=== PATIENT | male | born 1960 | race Caucasian/White ===

== ENCOUNTER 2024-06-19 18:01 | Observation (INO) | payer MEDICARE, MEDICAID, SELFPAY ==
[2024-06-19] VITALS (23 sets, daily range): BP systolic 113–140; BP diastolic 48–90; PULSE 66–80; TEMP 36.4; O2SAT 95–99; BMI 38.7; BMI 36.2
--- NOTE | 2024-06-19 18:06 | ECG_ITS ---
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
--- NOTE | 2024-06-19 18:06 | CT_ITS ---
The [address] [address] Patient Name: UVALDO MICHEL MRN: [id number] date: 1960 Sex: M Assigned Patient Location: ER Current Patient Location: ED.MAIN Accession/Order Number: [id number] Exam Date: 06/19/2024 18:30 Report Date: 06/19/2024 20:19 At the request of: MARINO BECERRA Procedure: CT head/brain wo con EXAM: CT head/brain wo con HISTORY: seizure, no known history COMPARISON: None. TECHNIQUE: CT head noncontrast FINDINGS: No mass, edema, or hemorrhage seen. Ventricles normal size midline without mass effect or shift. No extra-axial collection. No fracture or suspicious bone lesion. Visualized mastoid, middle ear cavities and sinuses clear. CT/CT head/brain wo con IMPRESSION: Negative head CT without evidence of acute abnormality. Electronically authenticated by: ENDY PAREKH Date: 06/19/2024 20:19
--- NOTE | 2024-06-19 18:06 | XR_ITS ---
The [address] [address] Patient Name: UVALDO MICHEL MRN: [id number] date: 1960 Sex: M Assigned Patient Location: ER Current Patient Location: ED.MAIN Accession/Order Number: [id number] Exam Date: 06/19/2024 18:30 Report Date: 06/19/2024 20:33 At the request of: MARINO BECERRA Procedure: XR chest 1V EXAM: XR chest 1V HISTORY: seizure COMPARISON: None. TECHNIQUE: AP upright chest x-ray. FINDINGS: Lungs clear without infiltrate or edema or suspicious focal lung lesion. Heart size prominent accentuated by magnification. Mediastinal contour otherwise unremarkable. No pleural effusion or pneumothorax XR/XR chest 1V IMPRESSION: No acute findings, clear lungs. Electronically authenticated by: ENDY PAREKH Date: 06/19/2024 20:33
[2024-06-19 18:35] LABS: Basophils Percent Auto 0.4 % (0.2-2.0); Eosinophils Absolute Auto 0.2 10^3/uL (0.0-0.7); Eosinophils Percent Auto 3.7 % (0.9-7.0); Hematocrit 37.5 % (42.0-54.0); Hemoglobin 12.7 g/dL (14.0-18.0); Immature Granulocytes Abs Auto 0.01 10^3/uL (0.00-0.03); Immature Granulocytes Pct Auto 0.2 % (0.0-0.5); Lymphocytes Absolute Auto 1.2 10^3/uL (1.2-3.8); Mean Corpuscular HGB Conc 33.9 g/dL (29.9-35.2); Mean Corpuscular Hemoglobin 27.9 pg (25.9-34.0); Mean Corpuscular Volume 82.2 fL (80.0-94.0); Mean Platelet Volume 10.4 fL (9.5-13.5); Monocytes Absolute Auto 0.4 10^3/uL (0.3-0.8); Neutrophils Absolute Auto 3.1 10^3/uL (1.4-6.5); Neutrophils Percent Auto 62.7 % (43.0-75.0); Platelet Count 160 10^3/uL (150-450); Red Blood Count 4.56 10^6/uL (4.70-6.10); Red Cell Distribution Width 13.4 % (11.0-15.0); White Blood Count 4.9 10^3/uL (4.0-11.0)
[2024-06-19] MEDS: 0.9 % SODIUM CHLORIDE 1,000 ML 999 ML IV (18:36)
--- NOTE | 2024-06-19 18:47 | ED_ITS ---
HPI HPI - General Adult General Chief complaint: Seizure Stated complaint: Seizure Time Seen by Provider: 06/19/24 18:05 Mode of arrival: ambulance History of Present Illness HPI narrative: 63-year-old male was brought to the emergency room by squad with a episode of seizures per snf. Seizures were witnessed. [facility] states he had 4 seizures . Patient somewhat postictal upon arrival but 1520 minutes after being here he is alert and oriented. He does have a history of dementia schizophrenia and depression. He is at the snf for after being discharged from [address] [place] [address]. Patient is calm and cooperative at this time. No known injuries or fall are noted patient is complaining of left knee pain snf states he had an x-ray yesterday they do not have those results. No obvious swelling or deformity lower extremity is noted. Patient's blood sugar initially was 53 at snf he was given 2 doses of glucagon IM. Blood sugar upon arrival here to the emergency room was. Patient's vital signs are stable. He is resting comfortably. Related Data Home Medications ?Medication ?Instructions ?Recorded ?Confirmed acetaminophen 500 mg capsule 1,000 mg PO Q6H PRN fever or pain 06/19/24 06/19/24 atorvastatin 80 mg tablet 80 mg PO DAILY 06/19/24 06/19/24 buspirone 5 mg tablet 5 mg PO DAILY 06/19/24 06/19/24 citalopram 40 mg tablet 40 mg PO DAILY 06/19/24 06/19/24 clopidogrel 75 mg tablet 75 mg PO DAILY 06/19/24 06/19/24 donepezil 10 mg tablet 10 mg PO DAILY 06/19/24 06/19/24 dulaglutide 3 mg/0.5 mL 3 mg subcut .WEEKLY 06/19/24 06/19/24 [facility] famotidine 20 mg tablet 20 mg PO DAILY 06/19/24 06/19/24 fluticasone propionate 50 2 spray intranasal DAILY 06/19/24 06/19/24 mcg/actuation nasal spray,suspension furosemide 20 mg tablet 20 mg PO DAILY 06/19/24 06/19/24 gabapentin 600 mg tablet 600 mg PO Q8H 06/19/24 06/19/24 insulin aspart U-100 100 unit/mL subcut 06/19/24 (3 mL) subcutaneous pen (Novolog FlexPen U-100 Insulin aspart) insulin glargine 100 unit/mL (3 unit subcut 06/19/24 mL) subcutaneous pen (Lantus Solostar U-100 Insulin) metformin 1,000 mg tablet 1,000 mg PO BID 06/19/24 06/19/24 metoprolol tartrate 50 mg tablet 50 mg PO Q12H 06/19/24 06/19/24 pantoprazole 40 mg tablet,delayed 40 mg PO DAILY 06/19/24 06/19/24 release primidone 250 mg tablet 250 mg PO DAILY 06/19/24 06/19/24 quetiapine 25 mg tablet (Seroquel) 75 mg PO DAILY 06/19/24 06/19/24 ropinirole 0.5 mg tablet 0.5 mg PO DAILY 06/19/24 06/19/24 Allergies Allergy/AdvReac Type Severity Reaction Status Date / Time codeine Allergy Severe Anaphylaxis Verified 06/19/24 18:09 Latex, Natural Rubber Allergy Severe Rash Verified 06/19/24 18:09 Opioid HPI Opioid Management Most Recent Opioid Data: No Data to Display Review of Systems ROS Narrative All Systems are negative except as noted/marked.All systems reviewed and otherwise negative Exam Narrative Exam Narrative: All Systems are negative except as noted/marked.All systems reviewed and otherwise negative Nurses note and vital signs reviewed and patient is not hypoxic. General: The patient appears well and in no apparent distress. Patient is resting comfortably on cart. Skin: Warm, dry, no pallor noted. There is no rash noted. Head: Normocephalic, atraumatic Eye: Normal conjunctiva, no drainage, EOMI. PERRL Ears, Nose, Mouth, and Throat: oral mucosa is moist. Nares patent. Mouth without vesicles. Ear canals patent. Tm's without Erythema Cardiovascular: Regular Rate and Rhythm Respiratory: Patient is in no distress, no accessory muscle use, lungs are clear to auscultation, no wheezing, rales or rhonchi Back: non-tender, no CVA tenderness bilaterally to percussion. GI: Normal bowel sounds, no tenderness to palpation, no masses appreciated. No rebound, guarding, or rigidity noted. Musculoskeletal: The patient has no evidence of calf tenderness, no pitting edema, symmetrical pulses noted bilaterally Neurological:postictal upon arrival, A&O3 x, normal [id number] min post arrival Psychiatric: Cooperative Constitutional Vital Signs, click to edit/add: Last Vital Signs Temp 97.6 F 06/19/24 18:03 Pulse 72 06/19/24 19:10 Resp 18 06/19/24 18:03 BP 140/88 06/19/24 18:03 Pulse Ox 97 06/19/24 19:10 O2 Del Method Room Air 06/19/24 18:03 Course Vital Signs Vital signs: Vital Signs Temperature 97.6 F 06/19/24 18:03 Pulse Rate 71 06/19/24 18:03 Respiratory Rate 18 06/19/24 18:03 Blood Pressure 140/88 06/19/24 18:03 Pulse Oximetry 99 06/19/24 18:03 Oxygen Delivery Method Room Air 06/19/24 18:03 Temperature 97.6 F 06/19/24 18:03 Pulse Rate 72 06/19/24 19:10 Respiratory Rate 18 06/19/24 18:03 Blood Pressure 140/88 06/19/24 18:03 Pulse Oximetry 97 06/19/24 19:10 Oxygen Delivery Method Room Air 06/19/24 18:03 Medical Decision Making Differential Diagnosis Differential Diagnosis: hypoglemia, seizure, seizure like activity Medical Records Medical records reviewed: Yes I reviewed the patient's medical records Medical records narrative: 63-year-old male was brought to the emergency room by squad with a episode of seizures per snf. Seizures were witnessed. [facility] states he had 4 seizures . Patient somewhat postictal upon arrival but 1520 minutes after being here he is alert and oriented. He does have a history of dementia schizophrenia and depression. He is at the snf for after being discharged from [address] [place] [address]. Patient is calm and cooperative at this time. No known injuries or fall are noted patient is complaining of left knee pain snf states he had an x-ray yesterday they do not have those results. No obvious swelling or deformity lower extremity is noted. Patient's blood sugar initially was 53 at snf he was given 2 doses of glucagon IM. Blood sugar upon arrival here to the emergency room was. Patient's vital signs are stable. He is resting comfortably. Sorum here patient had a shaking episode that lasted approximately 10 seconds did not appear to be a seizure. He did not have any loss of bowel or bladder function. Head CT was performed and read negative by radiology. Delay of care was performed and waiting for CT exam. Blood work was reviewed patient had a low magnesium as well as a low calcium. Magnesium was 1.4 and calcium of 7.3. Patient was medicated here with 2 g of magnesium IV. He has been calm and comfortable here in the emergency room. Blood work including this was on the gillian joel. spoke with hospitalist regarding patient's care. patient will be admitted for observation seizure-like activity, hypoglycemia, hypomagnesia and hypocalcemia. Lab Data Lab results reviewed: Yes I reviewed the patient's lab results Labs: Lab Results 06/19/24 06/19/24 06/19/24 Range/Units 18:10 18:38 19:50 WBC 4.9 (4.0-11.0) 10^3/uL RBC 4.56 L (4.70-6.10) 10^6/uL Hgb 12.7 L (14.0-18.0) g/dL Hct 37.5 L (42.0-54.0) % MCV 82.2 (80.0-94.0) fL MCH 27.9 (25.9-34.0) pg MCHC 33.9 (29.9-35.2) g/dL RDW 13.4 (11.0-15.0) % Plt Count 160 (150-450) 10^3/uL MPV 10.4 (9.5-13.5) fL Neut % (Auto) 62.7 (43.0-75.0) % Lymph % (Auto) 24.0 (20.5-60.0) % [place] % (Auto) 9.0 (1.7-12.0) % Eos % (Auto) 3.7 (0.9-7.0) % Baso % (Auto) 0.4 (0.2-2.0) % Neut # (Auto) 3.1 (1.4-6.5) 10^3/uL Lymph # (Auto) 1.2 (1.2-3.8) 10^3/uL [place] # (Auto) 0.4 (0.3-0.8) 10^3/uL Eos # (Auto) 0.2 (0.0-0.7) 10^3/uL Baso # (Auto) 0.0 (0.0-0.1) 10^3/uL Abs Immat Gran (auto) 0.01 (0.00-0.03) 10^3/uL Imm/Tot Granulo (auto) 0.2 (0.0-0.5) % Sodium 142 (136-145) mmol/L Potassium 3.7 (3.5-5.1) mmol/L Chloride 105 (98-107) mmol/L Carbon Dioxide 28.9 (21.0-32.0) mmol/L Anion Gap 11.8 BUN 16.0 (7.0-18.0) mg/dL Creatinine 0.89 (0.70-1.30) mg/dL Est GFR ( Amer) >60 (>=60 mL/min/1.73m^2) Est GFR (Non-Af Amer) >60 (>=60 mL/min/1.73m^2) BUN/Creatinine Ratio 18.0 Glucose 168 H (74-106) mg/dL Calcium 7.3 L (8.5-10.1) mg/dL Magnesium 1.4 L (1.8-2.4) mg/dL Total Bilirubin 0.3 (0.2-1.0) mg/dL AST 34 (15-37) U/L ALT 70 H (16-63) U/L Alkaline Phosphatase 121 H (46-116) U/L Total Protein 5.7 L (6.4-8.2) g/dL Albumin 2.7 L (3.4-5.0) g/dL Globulin 3.0 g/dL Albumin/Globulin Ratio 0.9 Urine Color Lt. yellow (YELLOW) Urine Clarity Clear (CLEAR) Urine pH 6.0 (5.0-9.0) Ur Specific [place] <=1.005 A (1.005-1.025) Urine Protein Negative (NEG/TRACE) mg/dL Urine Glucose (UA) Negative (NEGATIVE) mg/dL Urine Ketones Negative (NEGATIVE) mg/dL Urine Occult Blood Negative (NEGATIVE) Urine Nitrite Negative (NEGATIVE) Urine Bilirubin Negative (NEGATIVE) Urine Urobilinogen 0.2 (0.2-1.0) EU/dL Ur Leukocyte Esterase Negative (NEGATIVE) Urine RBC None seen (0-2) #/HPF Urine WBC None seen (NONE SEEN) #/HPF Ur Squamous Epith Cells Rare (NONE/RARE) #/LPF Urine Crystals None seen (None Seen) #/HPF Urine Bacteria None seen (NONE SEEN) #/HPF Urine Casts None seen (NONE SEEN) #/LPF Urine Mucus None seen (NONE SEEN) Streptococcus Screen Negative Imaging Data CT scan - head: Radiologist's impression: ITS Impressions Chest X-Ray 06/19/24 18:06 IMPRESSION: No acute findings, clear lungs. Electronically authenticated by: ENDY PAREKH Date: 06/19/2024 20:[address] 06/19/24 18:06 IMPRESSION: Negative head CT without evidence of acute abnormality. Electronically authenticated by: ENDY PAREKH Date: 06/19/2024 20:19 ECG Data Interpretation: 1806 normal sinus rhythm with a rate of 72 bpm, CO interval 164 ms QRS duration [address] elevation depression. Discharge Plan Discharge Chief Complaint: Seizure Clinical Impression: Seizure-like activity, Hypomagnesemia, Hypocalcemia, Hypoglycemia Patient Disposition: Admitted as Observation Time of Disposition Decision: 20:31 Condition: Good
[2024-06-19 18:48] LABS: Alanine Aminotransferase 70 U/L (16-63); Albumin Globulin Ratio 0.9; Albumin Level 2.7 g/dL (3.4-5.0); Alkaline Phosphatase 121 U/L (46-116); Anion Gap 11.8; Aspartate Amino Transferase 34 U/L (15-37); Bilirubin Total 0.3 mg/dL (0.2-1.0); Calcium 7.3 mg/dL (8.5-10.1); Carbon Dioxide 28.9 mmol/L (21.0-32.0); Chloride 105 mmol/L (98-107); Estimated GFR (African America >60 (>=60 mL/min/1.73m^2); Estimated GFR (Non-African Ame >60 (>=60 mL/min/1.73m^2); Glucose 168 mg/dL (74-106); Magnesium 1.4 mg/dL (1.8-2.4); Potassium 3.7 mmol/L (3.5-5.1); Sodium 142 mmol/L (136-145); Total Protein 5.7 g/dL (6.4-8.2)
--- NOTE | 2024-06-19 18:50 | PC.NURSE ---
RN spoke to Trent at [facility]. pt has chronic left knee pain. Trent states pt had xray done yesterday at [facility] but do not have results back yet.
[2024-06-19] MEDS: MAGNESIUM SULFATE IN WATER 2 GM/50 ML PREMIX IV (19:08)
[2024-06-19 19:14] LABS: Internal Control Within Normal Limits; Strep A Antigen Screen Negative
[2024-06-19 19:57] LABS: Bilirubin Urine NEGATIVE (NEGATIVE); Blood Urine NEGATIVE (NEGATIVE); Clarity Urine CLEAR (CLEAR); Color Urine LT. YELLOW (YELLOW); Glucose Urine UA NEGATIVE (NEGATIVE); Ketones Urine NEGATIVE (NEGATIVE); Leukocyte Esterase Urine NEGATIVE (NEGATIVE); Nitrite Urine NEGATIVE (NEGATIVE); Protein Urine NEGATIVE (NEG/TRACE); Specific Gravity Urine <=1.005 (1.005-1.025); Urobilinogen Urine 0.2 EU/dL (0.2-1.0)
--- NOTE | 2024-06-19 20:06 | PC.NURSE ---
snf called and informed patient will be admitted.
[2024-06-19 20:15] LABS: Bacteria Urine NONE SEEN #/HPF (NONE SEEN); Cast Seen? NONE SEEN #/LPF (NONE SEEN); Crystals Seen? None Seen #/HPF (None Seen); Mucus Urine NONE SEEN (NONE SEEN); RBC Urine NONE SEEN #/HPF (0-2); Squamous Epithelial Cell Urine RARE #/LPF (NONE/RARE); WBC Urine NONE SEEN #/HPF (NONE SEEN)
[2024-06-19] MEDS: GABAPENTIN 300 MG CAPSULE 600 MG PO (23:12)
[2024-06-19] MEDS: METOPROLOL TARTRATE 50 MG TABLET PO (23:13)
[2024-06-19] MEDS: ACETAMINOPHEN 325 MG TABLET 650 MG PO (23:14)
[2024-06-20] VITALS (9 sets, daily range): BP systolic 109–141; BP diastolic 70–88; PULSE 68–100; TEMP 36.4–36.8; O2SAT 94–96
[2024-06-20 06:01] LABS: Basophils Percent Auto 0.3 % (0.2-2.0); Eosinophils Absolute Auto 0.2 10^3/uL (0.0-0.7); Eosinophils Percent Auto 3.1 % (0.9-7.0); Hematocrit 40.8 % (42.0-54.0); Hemoglobin 13.8 g/dL (14.0-18.0); Immature Granulocytes Abs Auto 0.01 10^3/uL (0.00-0.03); Immature Granulocytes Pct Auto 0.1 % (0.0-0.5); Lymphocytes Absolute Auto 1.5 10^3/uL (1.2-3.8); Lymphocytes Percent Auto 19.3 % (20.5-60.0); Mean Corpuscular HGB Conc 33.8 g/dL (29.9-35.2); Mean Corpuscular Hemoglobin 27.7 pg (25.9-34.0); Mean Corpuscular Volume 81.9 fL (80.0-94.0); Mean Platelet Volume 10.3 fL (9.5-13.5); Monocytes Absolute Auto 0.7 10^3/uL (0.3-0.8); Monocytes Percent Auto 8.9 % (1.7-12.0); Neutrophils Absolute Auto 5.1 10^3/uL (1.4-6.5); Neutrophils Percent Auto 68.3 % (43.0-75.0); Platelet Count 189 10^3/uL (150-450); Red Blood Count 4.98 10^6/uL (4.70-6.10); Red Cell Distribution Width 13.7 % (11.0-15.0); White Blood Count 7.5 10^3/uL (4.0-11.0)
[2024-06-20 06:14] LABS: Anion Gap 10.3; BUN Creatinine Ratio 16.3; Calcium 7.9 mg/dL (8.5-10.1); Chloride 105 mmol/L (98-107); Estimated GFR (African America >60 (>=60 mL/min/1.73m^2); Estimated GFR (Non-African Ame >60 (>=60 mL/min/1.73m^2); Glucose 78 mg/dL (74-106); Magnesium 1.9 mg/dL (1.8-2.4); Potassium 4.3 mmol/L (3.5-5.1); Sodium 142 mmol/L (136-145)
[2024-06-20] MEDS: GABAPENTIN 300 MG CAPSULE 600 MG PO (06:35)
[2024-06-20 08:01] LABS: Glucometer 87 mg/dL (74-106)
[2024-06-20] MEDS: FAMOTIDINE 20 MG TABLET PO (09:36)
[2024-06-20] MEDS: QUETIAPINE FUMARATE 25 MG TABLET 75 MG PO (09:36)
[2024-06-20] MEDS: ROPINIROLE HCL 0.25 MG TABLET 0.5 MG PO (09:36)
[2024-06-20] MEDS: ENOXAPARIN SODIUM 40 MG/0.4 ML SYRINGE SUBQ (09:36)
[2024-06-20] MEDS: CITALOPRAM HYDROBROMIDE 20 MG TABLET 40 MG PO (09:36)
[2024-06-20] MEDS: CLOPIDOGREL BISULFATE 75 MG TABLET PO (09:36)
[2024-06-20] MEDS: OMEPRAZOLE 40 MG CAPSULE.DR PO (09:36)
[2024-06-20] MEDS: DONEPEZIL HCL 10 MG TABLET PO (09:36)
[2024-06-20] MEDS: BUSPIRONE HCL 10 MG TABLET 5 MG PO (09:36)
[2024-06-20] MEDS: FLUTICASONE PROPIONATE 50 MCG NASAL SPRAY 2 SPRAY NS (09:37)
[2024-06-20] MEDS: FUROSEMIDE 20 MG TABLET PO (09:37)
[2024-06-20] MEDS: ATORVASTATIN CALCIUM 40 MG TABLET 80 MG PO (09:37)
[2024-06-20] MEDS: PRIMIDONE 250 MG TABLET PO (09:37)
[2024-06-20] MEDS: METOPROLOL TARTRATE 50 MG TABLET PO (09:37)
--- NOTE | 2024-06-20 09:38 | P.HP_ITS ---
HPI H&P: HPI History of Present Illness Chief complaint: Seizure, Hypomagnesemia, Hypocalcemia,Hypoglycemia Narrative: Patient is a 63 y.o white male with past medical history of dementia, schizopherenia, depression who presented last night to the ER from a care home ([facility]) with seizure like activity. It seems patient had a hypoglycemic episode with sugars <50. He responded well with glucagon. He appears well this morning. No current complaints. No history of seizures, no recent changes to diet or other medications. He is alert and oriented x 3 this morning. No tremors, no complaints. ER findings: CT head negative, CXR negative, Mag 1.4, Glucose 53; patient was given 2grams of IV magnesium and admitted to the hospitalist for further plan of care. no overnight events reported. Opioid HPI Opioid Management Most Recent Pain and Opioid Data: Last Pain Scale 2 06/19/24 23:14 06/19/24 Last Pain Assessment 06/20/24 13:00 Last MAR Pain Assessment 06/20/24 00:10 Last ORT Total Score 3 06/19/24 21:33 06/19/24 Last ORT Risk Category Low Risk 06/19/24 21:33 06/19/24 Review of Systems ROS Narrative ROS: a complete review of systems were reviewed with patient and are positive as below or listed in History of Chief Complaint. General: no fever, chills, night sweats Head: no headache, trauma, visual changes, nausea or vomiting Skin: no reported rashes, itching or sores Eyes: no blurriness of vision Ears: no reported hearing loss, vertigo, earache, or tinnitus Throat: no sore throat, hoarseness, swelling of neck, or tongue pain Heart: no chest pain Lungs: no shortness of breath or cough GI: no diarrhea or vomiting/nausea Urinary: no urinary urgency, frequency or pain Neuro: no numbness or tingling HEM: no bleeding issues or bruising ENDO: no thyroid problems Psych: anxiety and depression [facility] Medical History (Updated 06/20/24 @ 09:47 by Kristal Gaviria DO) Schizo affective schizophrenia ?F25.9 - Schizoaffective disorder, unspecified (ICD-10) Generalized muscle weakness ?M62.81 - Muscle weakness (generalized) (ICD-10) Myocardial infarct ?I21.9 - Acute myocardial infarction, unspecified (ICD-10) Restless leg syndrome ?G25.81 - Restless legs syndrome (ICD-10) Anxiety disorder ?F41.9 - Anxiety disorder, unspecified (ICD-10) Nicotine dependence ?F17.200 - Nicotine dependence, unspecified, uncomplicated (ICD-10) Hyperlipidemia ?E78.5 - Hyperlipidemia, unspecified (ICD-10) COVID-19 ?U07.1 - COVID-19 (ICD-10) Suicidal ideations ?R45.851 - Suicidal ideations (ICD-10) Diabetes ?E11.9 - Type 2 diabetes mellitus without complications (ICD-10) Dementia ?F03.90 - Unspecified dementia, unspecified severity, without behavioral disturbance, psychotic disturbance, mood disturbance, and anxiety (ICD-10) Depressive disorder ?F32.A - Depression, unspecified (ICD-10) Social History Smoking status: Former smoker Highest level of school completed/degree received: high school graduate Meds Home Medications and Allergies Home Medications ?Medication ?Instructions ?Recorded ?Confirmed ?Type acetaminophen 500 mg capsule 1,000 mg PO Q6H PRN fever or pain 06/19/24 06/19/24 History atorvastatin 80 mg tablet 80 mg PO DAILY 06/19/24 06/19/24 History buspirone 5 mg tablet 5 mg PO DAILY 06/19/24 06/19/24 History citalopram 40 mg tablet 40 mg PO DAILY 06/19/24 06/19/24 History clopidogrel 75 mg tablet 75 mg PO DAILY 06/19/24 06/19/24 History donepezil 10 mg tablet 10 mg PO DAILY 06/19/24 06/19/24 History dulaglutide 3 mg/0.5 mL 3 mg subcut .WEEKLY 06/19/24 06/19/24 History subcutaneous pen injector ([facility]) famotidine 20 mg tablet 20 mg PO DAILY 06/19/24 06/19/24 History fluticasone propionate 50 2 spray intranasal DAILY 06/19/24 06/19/24 History mcg/actuation nasal spray,suspension furosemide 20 mg tablet 20 mg PO DAILY 06/19/24 06/19/24 History gabapentin 600 mg tablet 1,200 mg PO Q8H 06/19/24 06/19/24 History insulin aspart U-100 100 unit/mL subcut 06/19/24 History (3 mL) subcutaneous pen (Novolog FlexPen U-100 Insulin aspart) metformin 1,000 mg tablet 1,000 mg PO BID 06/19/24 06/19/24 History metoprolol tartrate 50 mg tablet 50 mg PO Q12H 06/19/24 06/19/24 History pantoprazole 40 mg tablet,delayed 40 mg PO DAILY 06/19/24 06/19/24 History release primidone 250 mg tablet 250 mg PO DAILY 06/19/24 06/19/24 History quetiapine 25 mg tablet (Seroquel) 75 mg PO DAILY 06/19/24 06/19/24 History ropinirole 0.5 mg tablet 0.5 mg PO DAILY 06/19/24 06/19/24 History insulin glargine 100 unit/mL (3 15 unit (0.15 mL) subcut BID #0 mL 06/20/24 06/19/24 Rx mL) subcutaneous pen (Lantus Solostar U-100 Insulin) Allergies Allergy/AdvReac Type Severity Reaction Status Date / Time codeine Allergy Severe Anaphylaxis Verified 06/19/24 18:09 Latex, Natural Rubber Allergy Severe Rash Verified 06/19/24 18:09 Exam Narrative Exam Narrative: General: Patient is alert, and oriented to person, place and time with normal affect, proper hygiene Skin: no visible rashes, or ulcers Head: atraumatic, acephalic Eyes: PERRLA, no nystagmus present, conjunctiva clear, no scleral icterus Ears: normal Tympanic Membrane, normal gross auditory acuity Nose: symmetric, no discharge, no maxillary or frontal sinus tenderness Heart: Normal rate and rhythm, no murmurs/rubs/gallops Lungs: no audible wheezes, crackles and normal breath sounds all lung alex Abdomen: Normal audible bowel sounds, no distension, No palpable masses, no organomegaly, no rebound/guarding/ or rigidity Musculoskeletal: no swelling bilateral lower extremities Neuro: CN II-X grossly intact Constitutional Vital Signs, click to edit/add: Last Vital Signs Temp 98.3 F 06/20/24 07:51 Pulse 77 06/20/24 08:00 Resp 18 06/20/24 07:51 BP 141/88 06/20/24 07:51 Pulse Ox 94 L 06/20/24 07:51 O2 Del Method Room Air 06/20/24 07:51 Results Labs Labs: Short CBC 06/19/24 06/20/24 Range/Units 18:10 05:35 WBC 4.9 7.5 (4.0-11.0) 10^3/uL Hgb 12.7 L 13.8 L (14.0-18.0) g/dL Hct 37.5 L 40.8 L (42.0-54.0) % Plt Count 160 189 (150-450) 10^3/uL BMP 06/19/24 06/20/24 18:10 05:35 Sodium 142 142 Potassium 3.7 4.3 Chloride 105 105 Carbon Dioxide 28.9 31.0 BUN 16.0 15.0 Creatinine 0.89 0.92 Glucose 168 H 78 Calcium 7.3 L 7.9 L Liver Function 06/19/24 Range/Units 18:10 Total Bilirubin 0.3 (0.2-1.0) mg/dL AST 34 (15-37) U/L ALT 70 H (16-63) U/L Alkaline Phosphatase 121 H (46-116) U/L Albumin 2.7 L (3.4-5.0) g/dL Urine 06/19/24 Range/Units 19:50 Urine Color Lt. yellow (YELLOW) Urine Clarity Clear (CLEAR) Urine pH 6.0 (5.0-9.0) Ur Specific [place] <=1.005 A (1.005-1.025) Urine Protein Negative (NEG/TRACE) mg/dL Urine Glucose (UA) Negative (NEGATIVE) mg/dL Assessment and Plan Assessment and Plan (1) Hypoglycemia: Assessment and Plan: patient on lantus 35 units BID and SSI along with lloyd. Would recommend decreasing lantus dosage as outpatient to 15 units BID and see if this improves his hypoglycemia. He will need close outpatient follow up to see if he needs the Lantus at all. (2) Hypocalcemia: Assessment and Plan: monitor (3) Hypomagnesemia: Assessment and Plan: normal range after given 2grams IV mag (4) Hyperlipidemia: Assessment and Plan: continue atorvastatin Qualifiers: Hyperlipidemia type: mixed hyperlipidemia Qualified Code(s): E78.2 - Mixed hyperlipidemia (5) Diabetes: Assessment and Plan: see #1 above Qualifiers: Diabetes mellitus complication detail: without coma Diabetes mellitus complication status: with hypoglycemia Diabetes mellitus parts counterman insulin use: with [facility] use Diabetes mellitus type: type 2 Qualified Code(s): E11.649 - Type 2 diabetes mellitus with hypoglycemia without coma; Z79.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 (6) Dementia: Assessment and Plan: currently resides in a LTCF Qualifiers: Dementia behavioral or psychological symptom: unspecified whether behavioral, psychotic, or mood disturbance or anxiety Dementia severity: unspecified severity Dementia type: unspecified type Qualified Code(s): F03.90 - Unspecified dementia, unspecified severity, without behavioral disturbance, psychotic disturbance, mood disturbance, and anxiety (7) Depressive disorder: Assessment and Plan: continue home meds (8) Schizo affective schizophrenia: Assessment and Plan: continue home meds Plan Patient is a full code patient is in observation, hypoglycemic episode that contributed to seizure like episode is most likely. Will adjust outpatient insulin medications and hopeful discharge back to the care home today.
[2024-06-20] MEDS: INSULIN ASPART 300 UNIT/3 ML PEN SUBQ (11:42)
[2024-06-20 11:43] LABS: Glucometer 162 mg/dL (74-106)
--- NOTE | 2024-06-20 13:52 | PM.DS1 ---
DS: Providers Provider Date of admission: 06/19/24 21:22 Primary care physician: EDWIN LAYNE Attending physician on admission: Kristal Gaviria Discharging clinician: Kristal Gaviria DS: Diagnosis Discharge Diagnosis (1) Hypoglycemia: (2) Hypocalcemia: (3) Hypomagnesemia: (4) Hyperlipidemia: Qualifiers: Hyperlipidemia type: mixed hyperlipidemia Qualified Code(s): E78.2 - Mixed hyperlipidemia (5) Diabetes: Qualifiers: Diabetes mellitus type: type 2 Diabetes mellitus group home insulin use: with group home use Diabetes mellitus complication status: with hypoglycemia Diabetes mellitus complication detail: without coma Qualified Code(s): E11.649 - Type 2 diabetes mellitus with hypoglycemia without coma; Z79.4 - long term acute care registered nurse (current) use of insulin (6) Dementia: Qualifiers: Dementia type: unspecified type Dementia severity: unspecified severity Dementia behavioral or psychological symptom: unspecified whether behavioral, psychotic, or mood disturbance or anxiety Qualified Code(s): F03.90 - Unspecified dementia, unspecified severity, without behavioral disturbance, psychotic disturbance, mood disturbance, and anxiety (7) Depressive disorder: (8) Schizo affective schizophrenia: DS: Summary Hospital Course Hospital Course: please see H&P dated 06/20/24 Status at Discharge Functional status at discharge: uses cane/walker Overall status at discharge: patient is back to baseline Time Spent with Patient Time attestation: Total time spent providing and/or coordinating discharge services: Time spent: greater than 30 minutes Exam Narrative Exam Narrative: please see H&P dated 06/20/24 Constitutional Vital Signs, click to edit/add: Last Vital Signs Temp 97.7 F 06/20/24 12:00 Pulse 100 H 06/20/24 12:00 Resp 18 06/20/24 12:00 BP 129/84 06/20/24 12:00 Pulse Ox 96 06/20/24 12:05 O2 Del Method Room Air 06/20/24 12:05 DS: Data Data Completed and Pending Labs on day of discharge: Labs from last 24 hours 06/20/24 06/20/24 06/20/24 11:30 07:50 05:35 WBC 7.5 RBC 4.98 Hgb 13.8 L Hct 40.8 L MCV 81.9 MCH 27.7 MCHC 33.8 RDW 13.7 Plt Count 189 MPV 10.3 Neut % (Auto) 68.3 Lymph % (Auto) 19.3 L [place] % (Auto) 8.9 Eos % (Auto) 3.1 Baso % (Auto) 0.3 Neut # (Auto) 5.1 Lymph # (Auto) 1.5 [place] # (Auto) 0.7 Eos # (Auto) 0.2 Baso # (Auto) 0.0 Abs Immat Gran (auto) 0.01 Imm/Tot Granulo (auto) 0.1 Sodium 142 Potassium 4.3 Chloride 105 Carbon Dioxide 31.0 Anion Gap 10.3 BUN 15.0 Creatinine 0.92 Est GFR ( Amer) >60 Est GFR (Non-Af Amer) >60 BUN/Creatinine Ratio 16.3 Glucose 78 Calcium 7.9 L Magnesium 1.9 Total Bilirubin AST ALT Alkaline Phosphatase Total Protein Albumin Globulin Albumin/Globulin Ratio Urine Color Urine Clarity Urine pH Ur Specific [place] Urine Protein Urine Glucose (UA) Urine Ketones Urine Occult Blood Urine Nitrite Urine Bilirubin Urine Urobilinogen Ur Leukocyte Esterase Urine RBC Urine WBC Ur Squamous Epith Cells Urine Crystals Urine Bacteria Urine Casts Urine Mucus Streptococcus Screen POC Glucose 162 H 87 06/19/24 06/19/24 06/19/24 19:50 18:38 18:10 WBC 4.9 RBC 4.56 L Hgb 12.7 L Hct 37.5 L MCV 82.2 MCH 27.9 MCHC 33.9 RDW 13.4 Plt Count 160 MPV 10.4 Neut % (Auto) 62.7 Lymph % (Auto) 24.0 [place] % (Auto) 9.0 Eos % (Auto) 3.7 Baso % (Auto) 0.4 Neut # (Auto) 3.1 Lymph # (Auto) 1.2 [place] # (Auto) 0.4 Eos # (Auto) 0.2 Baso # (Auto) 0.0 Abs Immat Gran (auto) 0.01 Imm/Tot Granulo (auto) 0.2 Sodium 142 Potassium 3.7 Chloride 105 Carbon Dioxide 28.9 Anion Gap 11.8 BUN 16.0 Creatinine 0.89 Est GFR ( Amer) >60 Est GFR (Non-Af Amer) >60 BUN/Creatinine Ratio 18.0 Glucose 168 H Calcium 7.3 L Magnesium 1.4 L Total Bilirubin 0.3 AST 34 ALT 70 H Alkaline Phosphatase 121 H Total Protein 5.7 L Albumin 2.7 L Globulin 3.0 Albumin/Globulin Ratio 0.9 Urine Color Lt. yellow Urine Clarity Clear Urine pH 6.0 Ur Specific [place] <=1.005 A Urine Protein Negative Urine Glucose (UA) Negative Urine Ketones Negative Urine Occult Blood Negative Urine Nitrite Negative Urine Bilirubin Negative Urine Urobilinogen 0.2 Ur Leukocyte Esterase Negative Urine RBC None seen Urine WBC None seen Ur Squamous Epith Cells Rare Urine Crystals None seen Urine Bacteria None seen Urine Casts None seen Urine Mucus None seen Streptococcus Screen Negative POC Glucose Discharge Plan Discharge Disposition: Xfer LT Condition: Good Discharge Medications: Continued buspirone 5 mg tablet 5 mg PO DAILY atorvastatin 80 mg tablet 80 mg PO DAILY gabapentin 600 mg tablet 1,200 mg PO Q8H Rx Instructions: Give 2 600mg Tablets citalopram 40 mg tablet 40 mg PO DAILY donepezil 10 mg tablet 10 mg PO DAILY clopidogrel 75 mg tablet 75 mg PO DAILY famotidine 20 mg tablet 20 mg PO DAILY primidone 250 mg tablet 250 mg PO DAILY pantoprazole 40 mg tablet,delayed release (DR/EC) 40 mg PO DAILY metformin 1,000 mg tablet 1,000 mg PO BID ropinirole 0.5 mg tablet 0.5 mg PO DAILY metoprolol tartrate 50 mg tablet 50 mg PO Q12H furosemide 20 mg tablet 20 mg PO DAILY fluticasone propionate 50 mcg/actuation spray,suspension 2 spray INTRANASAL DAILY insulin aspart U-100 [Novolog FlexPen U-100 Insulin] 100 unit/mL (3 mL) insulin pen SUBCUT Trulicity 3 mg/0.5 mL pen injector 3 mg SUBCUT .WEEKLY quetiapine [Seroquel] 25 mg tablet 75 mg PO DAILY acetaminophen 500 mg capsule 1,000 mg PO Q6H PRN (Reason: fever or pain) Changed insulin glargine [Lantus Solostar U-100 Insulin] 100 unit/mL (3 mL) insulin pen 15 unit SUBCUT BID Qty: 0 0RF Print Language: Telugu Forms: Portal Instructions Discharge location: [facility]
[2024-06-21 12:08] LABS: Prolactin 14.8 ng/mL (3.6-25.2)
== END 2024-06-20 14:06 ==
LOC: ER 20:31 → MS 21:28
PROVIDERS: Physician Assistant; Registered Nurse; Admitting Provider Family Medicine; Emergency Provider Emergency Medicine; PCP Family Medicine; Visit Provider Family Medicine
DX: E11.649 Type 2 diabetes mellitus with hypoglycemia without coma (principal); E83.51 Hypocalcemia; E83.42 Hypomagnesemia; E78.5 Hyperlipidemia, unspecified; F03.90 Unspecified dementia, unspecified severity, without behavioral disturbance, psychotic disturbance, mood disturbance, and anxiety; F32.A Depression, unspecified; F25.9 Schizoaffective disorder, unspecified; Z79.4 Long term (current) use of insulin; Z79.899 Other long term (current) drug therapy; Z79.84 Long term (current) use of oral hypoglycemic drugs
CPT/HCPCS: 36415; 70450; 71045; 80048; 80053; 81001; 82948; 83735; 84146; 85025; 87070; 87880; 93005; 94761; 96365; 96372; 99285; G0378; J1650; J3475

== ENCOUNTER 2024-06-24 01:36 | Emergency (ER) | payer MEDICARE, MEDICAID, SELFPAY ==
[2024-06-24] VITALS (43 sets, daily range): BP systolic 109–139; BP diastolic 69–89; PULSE 75–94; TEMP 36.7; O2SAT 93–97; BMI 28.5
--- NOTE | 2024-06-24 01:39 | ED.SEIZURE1 ---
HPI - Seizure General Chief Complaint: Seizure Stated Complaint: OTHER Time Seen by Provider: 06/24/24 01:38 History of Present Illness HPI Narrative: patient seen here 5 days ago after seizure like activity. Patient is diabetic. Seizure felt likely related to hypoglycemia. Patient returns tonight after another reported episode of seizure activity. this time his POC BS is normal CT brain with last ER visit normal. Per nursing the patient walked to the nursing station at the halfway and reportedly did not look right . Nursing thought he was going to fall and help lay him down on the floor and called squad to bring him to the ER for seizure activity. No reported tonic clonic activity Seizure History: No Related Data Home Medications ?Medication ?Instructions ?Recorded ?Confirmed acetaminophen 500 mg capsule 1,000 mg PO Q6H PRN fever or pain 06/19/24 06/19/24 atorvastatin 80 mg tablet 80 mg PO DAILY 06/19/24 06/19/24 buspirone 5 mg tablet 5 mg PO DAILY 06/19/24 06/19/24 citalopram 40 mg tablet 40 mg PO DAILY 06/19/24 06/19/24 clopidogrel 75 mg tablet 75 mg PO DAILY 06/19/24 06/19/24 donepezil 10 mg tablet 10 mg PO DAILY 06/19/24 06/19/24 dulaglutide 3 mg/0.5 mL 3 mg subcut .WEEKLY 06/19/24 06/19/24 subcutaneous pen injector (Trulicity) famotidine 20 mg tablet 20 mg PO DAILY 06/19/24 06/19/24 fluticasone propionate 50 2 spray intranasal DAILY 06/19/24 06/19/24 mcg/actuation nasal spray,suspension furosemide 20 mg tablet 20 mg PO DAILY 06/19/24 06/19/24 gabapentin 600 mg tablet 1,200 mg PO Q8H 06/19/24 06/19/24 insulin aspart U-100 100 unit/mL subcut 06/19/24 (3 mL) subcutaneous pen (Novolog FlexPen U-100 Insulin aspart) metformin 1,000 mg tablet 1,000 mg PO BID 06/19/24 06/19/24 metoprolol tartrate 50 mg tablet 50 mg PO Q12H 06/19/24 06/19/24 pantoprazole 40 mg tablet,delayed 40 mg PO DAILY 06/19/24 06/19/24 release primidone 250 mg tablet 250 mg PO DAILY 06/19/24 06/19/24 quetiapine 25 mg tablet (Seroquel) 75 mg PO DAILY 06/19/24 06/19/24 ropinirole 0.5 mg tablet 0.5 mg PO DAILY 06/19/24 06/19/24 Previous Rx's ?Medication ?Instructions ?Recorded insulin glargine 100 unit/mL (3 15 unit (0.15 mL) subcut BID #0 mL 06/20/24 mL) subcutaneous pen (Lantus Solostar U-100 Insulin) Allergies Allergy/AdvReac Type Severity Reaction Status Date / Time codeine Allergy Severe Anaphylaxis Verified 06/19/24 18:09 Latex, Natural Rubber Allergy Severe Rash Verified 06/19/24 18:09 Review of Systems ROS Status of ROS 10 or more systems reviewed and unremarkable except as noted in history and below [facility] Medical History (Updated 06/24/24 @ 04:58 by Cy Steward MD) Schizo affective schizophrenia ?F25.9 - Schizoaffective disorder, unspecified (ICD-10) Generalized muscle weakness ?M62.81 - Muscle weakness (generalized) (ICD-10) Myocardial infarct ?I21.9 - Acute myocardial infarction, unspecified (ICD-10) Restless leg syndrome ?G25.81 - Restless legs syndrome (ICD-10) Anxiety disorder ?F41.9 - Anxiety disorder, unspecified (ICD-10) Nicotine dependence ?F17.200 - Nicotine dependence, unspecified, uncomplicated (ICD-10) Hyperlipidemia ?E78.5 - Hyperlipidemia, unspecified (ICD-10) COVID-19 ?U07.1 - COVID-19 (ICD-10) Suicidal ideations ?R45.851 - Suicidal ideations (ICD-10) Diabetes ?E11.9 - Type 2 diabetes mellitus without complications (ICD-10) Dementia ?F03.90 - Unspecified dementia, unspecified severity, without behavioral disturbance, psychotic disturbance, mood disturbance, and anxiety (ICD-10) Depressive disorder ?F32.A - Depression, unspecified (ICD-10) Social History Smoking status: Former smoker Highest level of school completed/degree received: high school graduate Little interest or pleasure in doing things: not at all Feeling down, depressed, or hopeless: not at all Exam Constitutional Vital Signs, click to edit/add: Last Vital Signs Temp 98.1 F 06/24/24 01:42 Pulse 94 H 06/24/24 08:30 Resp 18 06/24/24 02:10 BP 121/74 06/24/24 08:00 Pulse Ox 93 L 06/24/24 08:10 O2 Del Method Room Air 06/24/24 01:42 Common normals: no apparent distress, average body habitus, no limitations, healthy appearing and alert Exam limitations: other limitations (appears slow in answering questions) Eye Common normals: EOMs intact bilaterally and conjunctivae normal Respiratory Common normals: normal respiratory effort, no retractions and no use of accessory muscles Cardio Common normals: regular rate, regular rhythm, S1 normal heart sound and S2 normal heart sound GI Common normals: Normal to inspection, nondistended, normoactive bowel sounds present, soft to palpation and non-tender Extremity Common normals: normal to inspection and full ROM Neuro Common normals: CN's II-XII intact bilaterally, moves all extremities, no focal motor deficits and no sensory deficits noted Course Vital Signs Vital signs: Vital Signs Pulse Rate 78 06/24/24 01:39 Respiratory Rate 14 06/24/24 01:39 Pulse Oximetry 97 06/24/24 01:39 Temperature 98.1 F 06/24/24 01:42 Pulse Rate 94 H 06/24/24 08:30 Respiratory Rate 18 06/24/24 02:10 Blood Pressure 121/74 06/24/24 08:00 Pulse Oximetry 93 L 06/24/24 08:10 Oxygen Delivery Method Room Air 06/24/24 01:42 MDM - Seizure MDM Narrative Medical decision making narrative: patient sent here from halfway for reported seizure like activity. The history does not support any seizure activity. He reportedly walked to the nursing station and they were concerned he was going to fall and laid him down on the floor. He arrives here awake. He appears slow in answering questions. Not sure this is his baseline. I did not repeat CT brain as it was normal 5 days ago. labs here again demonstrate hypomagnesemia. Magnesium supplemented and patient discharged back to the home with a prescription for magnesium. Limited history made it very difficult to evaluate what is going on with the patient but he appears stable clinically Lab Data Labs: Lab Results 06/24/24 06/24/24 Range/Units 02:07 02:10 WBC 7.2 (4.0-11.0) 10^3/uL RBC 5.19 (4.70-6.10) 10^6/uL Hgb 14.5 (14.0-18.0) g/dL Hct 42.0 (42.0-54.0) % MCV 80.9 (80.0-94.0) fL MCH 27.9 (25.9-34.0) pg MCHC 34.5 (29.9-35.2) g/dL RDW 13.3 (11.0-15.0) % Plt Count 194 (150-450) 10^3/uL MPV 10.6 (9.5-13.5) fL Neut % (Auto) 71.1 (43.0-75.0) % Lymph % (Auto) 17.8 L (20.5-60.0) % [place] % (Auto) 8.4 (1.7-12.0) % Eos % (Auto) 2.1 (0.9-7.0) % Baso % (Auto) 0.3 (0.2-2.0) % Neut # (Auto) 5.1 (1.4-6.5) 10^3/uL Lymph # (Auto) 1.3 (1.2-3.8) 10^3/uL [place] # (Auto) 0.6 (0.3-0.8) 10^3/uL Eos # (Auto) 0.2 (0.0-0.7) 10^3/uL Baso # (Auto) 0.0 (0.0-0.1) 10^3/uL Abs Immat Gran (auto) 0.02 (0.00-0.03) 10^3/uL Imm/Tot Granulo (auto) 0.3 (0.0-0.5) % Sodium 137 (136-145) mmol/L Potassium 4.1 (3.5-5.1) mmol/L Chloride 99 (98-107) mmol/L Carbon Dioxide 29.2 (21.0-32.0) mmol/L Anion Gap 12.9 BUN 20.0 H (7.0-18.0) mg/dL Creatinine 0.92 (0.70-1.30) mg/dL Est GFR ( Amer) >60 (>=60 mL/min/1.73m^2) Est GFR (Non-Af Amer) >60 (>=60 mL/min/1.73m^2) BUN/Creatinine Ratio 21.7 Glucose 166 H (74-106) mg/dL Calcium 8.9 (8.5-10.1) mg/dL Magnesium 1.3 L (1.8-2.4) mg/dL Total Bilirubin 0.4 (0.2-1.0) mg/dL AST 28 (15-37) U/L ALT 74 H (16-63) U/L Alkaline Phosphatase 143 H (46-116) U/L Total Protein 7.1 (6.4-8.2) g/dL Albumin 3.3 L (3.4-5.0) g/dL Globulin 3.8 g/dL Albumin/Globulin Ratio 0.9 Urine Color Lt. yellow (YELLOW) Urine Clarity Clear (CLEAR) Urine pH 6.0 (5.0-9.0) Ur Specific [place] <=1.005 A (1.005-1.025) Urine Protein Negative (NEG/TRACE) mg/dL Urine Glucose (UA) 100 A (NEGATIVE) mg/dL Urine Ketones Negative (NEGATIVE) mg/dL Urine Occult Blood Negative (NEGATIVE) Urine Nitrite Negative (NEGATIVE) Urine Bilirubin Negative (NEGATIVE) Urine Urobilinogen 0.2 (0.2-1.0) EU/dL Ur Leukocyte Esterase Negative (NEGATIVE) Discharge Plan Discharge Chief Complaint: Seizure Clinical Impression: Hypomagnesemia Patient Disposition: Home, Self-Care Prescriptions / Home Meds: No Action buspirone 5 mg tablet 5 mg PO DAILY atorvastatin 80 mg tablet 80 mg PO DAILY gabapentin 600 mg tablet 1,200 mg PO Q8H Rx Instructions: Give 2 600mg Tablets citalopram 40 mg tablet 40 mg PO DAILY donepezil 10 mg tablet 10 mg PO DAILY clopidogrel 75 mg tablet 75 mg PO DAILY famotidine 20 mg tablet 20 mg PO DAILY primidone 250 mg tablet 250 mg PO DAILY pantoprazole 40 mg tablet,delayed release (DR/EC) 40 mg PO DAILY metformin 1,000 mg tablet 1,000 mg PO BID ropinirole 0.5 mg tablet 0.5 mg PO DAILY metoprolol tartrate 50 mg tablet 50 mg PO Q12H furosemide 20 mg tablet 20 mg PO DAILY fluticasone propionate 50 mcg/actuation spray,suspension 2 spray INTRANASAL DAILY insulin aspart U-100 [Novolog FlexPen U-100 Insulin] 100 unit/mL (3 mL) insulin pen SUBCUT Trulicity 3 mg/0.5 mL pen injector 3 mg SUBCUT .WEEKLY quetiapine [Seroquel] 25 mg tablet 75 mg PO DAILY acetaminophen 500 mg capsule 1,000 mg PO Q6H PRN (Reason: fever or pain) insulin glargine [Lantus Solostar U-100 Insulin] 100 unit/mL (3 mL) insulin pen 15 unit SUBCUT BID Qty: 0 0RF Print Language: Azeri Instructions: Hypomagnesemia (ED) Additional Instructions: follow up with family doctor to have magnesium level rechecked Referrals: EDWIN LAYNE [Primary Care Provider] - 1 week Discharge Date/Time: 06/24/24 10:35
[2024-06-24 02:19] LABS: Basophils Percent Auto 0.3 % (0.2-2.0); Eosinophils Absolute Auto 0.2 10^3/uL (0.0-0.7); Eosinophils Percent Auto 2.1 % (0.9-7.0); Hemoglobin 14.5 g/dL (14.0-18.0); Immature Granulocytes Abs Auto 0.02 10^3/uL (0.00-0.03); Immature Granulocytes Pct Auto 0.3 % (0.0-0.5); Lymphocytes Absolute Auto 1.3 10^3/uL (1.2-3.8); Lymphocytes Percent Auto 17.8 % (20.5-60.0); Mean Corpuscular HGB Conc 34.5 g/dL (29.9-35.2); Mean Corpuscular Hemoglobin 27.9 pg (25.9-34.0); Mean Corpuscular Volume 80.9 fL (80.0-94.0); Mean Platelet Volume 10.6 fL (9.5-13.5); Monocytes Absolute Auto 0.6 10^3/uL (0.3-0.8); Monocytes Percent Auto 8.4 % (1.7-12.0); Neutrophils Absolute Auto 5.1 10^3/uL (1.4-6.5); Neutrophils Percent Auto 71.1 % (43.0-75.0); Platelet Count 194 10^3/uL (150-450); Red Blood Count 5.19 10^6/uL (4.70-6.10); Red Cell Distribution Width 13.3 % (11.0-15.0); White Blood Count 7.2 10^3/uL (4.0-11.0)
[2024-06-24 02:20] LABS: Bilirubin Urine NEGATIVE (NEGATIVE); Blood Urine NEGATIVE (NEGATIVE); Clarity Urine CLEAR (CLEAR); Color Urine LT. YELLOW (YELLOW); Glucose Urine UA 100 mg/dL (NEGATIVE); Ketones Urine NEGATIVE (NEGATIVE); Leukocyte Esterase Urine NEGATIVE (NEGATIVE); Nitrite Urine NEGATIVE (NEGATIVE); Protein Urine NEGATIVE (NEG/TRACE); Specific Gravity Urine <=1.005 (1.005-1.025); Urobilinogen Urine 0.2 EU/dL (0.2-1.0)
--- NOTE | 2024-06-24 02:25 | XR_ITS ---
The [address] [address] Patient Name: UVALDO MICHEL MRN: [id number] date: 1960 Sex: M Assigned Patient Location: ER Current Patient Location: Accession/Order Number: [id number] Exam Date: 06/24/2024 03:02 Report Date: 06/24/2024 03:57 At the request of: BERENICE MORRIS Procedure: XR chest 1V EXAM: XR chest 1V HISTORY: Cough. COMPARISON: Portable chest radiograph dated 06/19/2024. TECHNIQUE: AP erect portable chest radiograph performed. FINDINGS: The trachea is midline. The heart size is normal. There is a very small amount of atheromatous calcification at the aortic arch. There is no consolidation, pleural effusion or pulmonary vascular congestion. There is no pneumothorax or acute osseous abnormality. There are moderate degenerative changes at the right acromioclavicular and glenohumeral articulations. XR/XR chest 1V IMPRESSION: There is no acute cardiopulmonary process. Electronically authenticated by: STEPHANIE PAK Date: 06/24/2024 03:57
[2024-06-24 02:26] LABS: Urine Microscopic Indicated NO
[2024-06-24 02:35] LABS: Magnesium 1.3 mg/dL (1.8-2.4)
[2024-06-24 02:42] LABS: Alanine Aminotransferase 74 U/L (16-63); Albumin Globulin Ratio 0.9; Albumin Level 3.3 g/dL (3.4-5.0); Alkaline Phosphatase 143 U/L (46-116); Anion Gap 12.9; Aspartate Amino Transferase 28 U/L (15-37); BUN Creatinine Ratio 21.7; Bilirubin Total 0.4 mg/dL (0.2-1.0); Calcium 8.9 mg/dL (8.5-10.1); Carbon Dioxide 29.2 mmol/L (21.0-32.0); Chloride 99 mmol/L (98-107); Estimated GFR (African America >60 (>=60 mL/min/1.73m^2); Estimated GFR (Non-African Ame >60 (>=60 mL/min/1.73m^2); Globulin 3.8 g/dL; Glucose 166 mg/dL (74-106); Potassium 4.1 mmol/L (3.5-5.1); Sodium 137 mmol/L (136-145); Total Protein 7.1 g/dL (6.4-8.2)
--- OUTSIDE RECORDS SUMMARY | 2024-06-24 02:44 | XMS_ITS | CCD ---
Author Organization [facility] Care Team Providers Care Film Writer Name Role Phone ENDY SANTOYO Unavailable Unavailable NO FAMILY DOCTOR, NO FAMILY DOCTOR Unavailable Unavailable Janki Rdz Unavailable Unavailable Unavailable Janki Rdz Primary Care Physician Vivien Madison Unavailable Unavailable Mannie Daniels DO Primary Care Provider [phone] [facility] Primary Care Provide r DANIELA Joy Attending Provider MD Gt Galindo Emergency Provider [phone] [facility] Primary Care Provide r MD Maddi Dharmesh Admit Provider MD Dharmesh Linda Attending Provider MD Ji Crespo Other Provider MD Ramón Mcgarry Attending Provider Unavailable Unavailable Mannie Daniels DO Primary Care Provider DO Wiley Haynes Emergency Provider [facility] Primary Care Provide r DO Yevgeniy Gill Emergency Provider [phone] Endy Santoyo Attending Unavailable Endy Santoyo Referring Unavailable Kajal, Dr. Janki Gold Primary Care Unavail able Endy Santoyo Attending Unavailable Endy Santoyo Referring Unavailable Kajal, Dr. Janki Gold Primary Care Unavail able DO Ambrocio Lara Emergency Provider [facility] Provide r DALE Leach Emergency Provider NICOLE Lucero Emergency Provider [phone] MD Yunior Singh Admit Provider MD Yunior Singh Attending Provider MD Manuel Gage Other Provider [facility] Provide r MD Ramon Arzate Emergency Provider [phone] Iris PADILLA, Lana Unavailable [phone] DO Ambrocio Lara Emergency Provider GT ABREU Referring Unavailable MAST, MANNIE E Primary Care Unavailable GT ABREU Attending Unavailable IRIS, LANA Referring Unavailable MAST, MANNIE E Primary Care Unavailable [facility] Provide r DO Davonte Mendez Emergency Provider Tyson Mcbride Attending Unavailable Kaela Rosa Attending Unavailable SALAM, Haq Attending Unavailable SALAM, Haq Admitting Unavailable SALAM, Haq Referring Unavailable SALAM, Haq Attending Unavailable SALAM, Haq Admitting Unavailable SALAM, Haq Referring Unavailable SALAM, Haq Attending Unavailable IRIS, LANA Attending Unavailable IRIS, LANA Admitting Unavailable IRIS, LANA Attending Unavailable IRIS, LANA Admitting Unavailable [facility] Provide r DO Davonte Mendez Emergency Provider MD Eneida Gutierrez Emergency Provider MD Ramón Mcgarry Admit Provider MD Ramón Mcgarry Attending Provider MD Jose Carlos Lindquist Other Provider [phone] MD Alix Neff Attending Provider [phone] MD Nigel Rdz Admit Provider MD Nigel Rdz Attending Provider [phone] [facility] Provide r MD Jaclyn Gudino Jr Emergency Provider DO Wiley Haynes Emergency Provider DO Hayder George Admit Provider DO Hayder George Attending Provider MD Liam Rodriguez Attending Provider [facility] Provide r MD Nigel Rdz Attending Provider DO Davonte Mendez Emergency Provider [facility] Provide r MD Nigel Rdz Admit Provider MD Nigel Rdz Attending Provider [phone] [facility] Provide r MD Jaclyn Gudino Jr Emergency Provider MAURICIO Cristina Other Provider Unavailable MAURICIO Montero Other Provider Unavailable MAURICIO Ruelas Other Provider Unavailable MAURICIO Coronel Other Provider Unavailable MAURICIO Buckley Other Provider Unavailable MD Shorty Gray Other Provider DO Henny Grady Other Provider MD Bismark Díaz Other Provider [phone] DO Andres Fitzpatrick Other Provider MD Ramón Mcgarry Other Provider [phone] MD Alix Neff Other Provider [phone] MD Thierry Peoples Other Provider Unavailable NICOLE Soriano Other Provider MD Liam Rodriguez Other Provider [phone] MD Gino Santos Other Provider MD Yunior Singh Other Provider MD Luba Richards Other Provider DO Gt Martinez Other Provider MD Alec Boogie Other Provider MD Saul Colby Other Provider HUE Cano-C Loulou Henley Other Provider NICOLE Swain Other Provider Unavailable MD Ru Aly Other Provider MD Issac Hull Other Provider MD Lei Ch Other Provider MD Ayah Constantino Other Provider Unavailable MD Dharmesh Linda Other Provider DO Sienna Matt Other Provider DO Vito Rey Other Provider NICOLE Mata Other Provider DO Hayder George Other Provider MD José Miguel Corleyayestiven M Other Provider NICOLE Arzate Other Provider NICOLE Hinton Other Provider MD Mulu Mercado Other Provider MD Rios Lara Other Provider DO Miller Healy Other Provider DO Jairo Carter Other Provider MD Tono Ch Other Provider MD Freddy Linares Other Provider [phone] NICOLE Shannon Other Provider MD Katy Garland Other Provider MD Denny Cook Other Provider MAURICIO Lozano Other Provider Unavailable [facility] Provide r DO Wiley Haynes Emergency Provider [phone] DO Hayder George Admit Provider MD Liam Rodriguez Attending Provider [phone] DO Davonte Mendez Emergency Provider Unavai MD Jaclyn Wu Jr Emergency Provider MD Nigel Rdz Admit Provider MD Nigel Rdz Attending Provider MAURICIO Cristina Other Provider Unavailable MAURICIO Montero Other Provider Unavailable MAURICIO Ruelas Other Provider Unavailable MAURICIO Coronel Other Provider Unavailable MAURICIO Buckley Other Provider Unavailable MD Shorty Gray Other Provider DO Henny Grady Other Provider MD Bismark Díaz Other Provider [phone] DO Andres Fitzpatrick Other Provider MD Ramón Mcgarry Other Provider MD Alix Neff Other Provider MD Thierry Peoples Other Provider Unavailable NICOLE Soriano Other Provider MD Liam Rodriguez Other Provider MD Gino Santos Other Provider MD Yunior Singh Other Provider MD Luba Richards Other Provider DO Gt Martinez Other Provider [phone] MD Alec Boogie Other Provider MD Saul Colby Other Provider DAISY CanoC Loulou Henley Other Provider NICOLE Swain Other Provider Unavailable MD Ru Aly Other Provider MD Issac Hull Other Provider MD Lei Ch Other Provider MD Ayah Constantino Other Provider Unavailable MD Dharmesh Linda Other Provider DO Sienna Matt Other Provider DO Vito Rey Other Provider NICOLE Mata Other Provider DO Hayder George Other Provider MD Rory Corley Other Provider [phone] NICOLE Arzate Other Provider NICOLE Hinton Other Provider MD Mulu Mercado Other Provider MD Rios Lara Other Provider DO Miller Healy Other Provider DO Jairo Carter Other Provider MD Dima Tono P Other Provider MD Freddy Linares Other Provider NICOLE Shannon Other Provider MD Katy Garland Other Provider MD Denny Cook Other Provider Marta, RN Ariela Other Provider Unavailable MD Rory Corley Admit Provider MD Rory Corley Attending Provider [phone] Marlin Angel Other Provider Unavailable Brunilda, PhD Vinod Other Provider DO Annemarie Benton Other Provider MD Robert Akers Other Provider DO Remigio White M Other Provider DO Jose Jon M Other Provider NICOLE Duvall Other Provider [phone] HUE Gan-C Isha Robert Other Provider [phone] NICOLE Han-[employer] Ju Parikh Other Provider MD Nigel Rdz Other Provider MD Eneida Ratliff Emergency Provider [phone] MD Jose Carlos Lindquist Admit Provider MD Jose Carlos Lindquist Attending Provider [facility] Primary Care Provide r Mannie Daniels DO Primary Care Provider Unavailable Primary Care Provider UnavailNigel Horton Attending Unavailab Nigel Staples Admitting Unavailab Sanaz Coffey Consulting Unavailable [facility] Primary Care Unav ailable Henna Montero Consulting Unavailable Densclemente, Stacie Consulting Unavailable Debbie Coronel Consulting Unavailable Maeve Buckley Consulting Unavailable Shorty Gray Consulting Unavailable Henny Grady Consulting Unavailable Bismark Díaz Consulting Unavailable Andres Fitzpatrick Consulting Unavailabl Ramón Ross Consulting Unavailable Sematracy Alix Consulting Unavailable Thierry Peoples Consulting Unavailable Carolina Soriano Consulting UnavailLiam Alanis Consulting Unavailable Gnio Santos Consulting Unavailable Yunior Singh Consulting Unavailable Luba Richards Consulting Unavailable Gt Martinez Consulting Unavailable Alec Boogie Consulting Unavailable Saul Colby Consulting Unavailable Loulou Cano Consulting Unavailable Duncan Swain Consulting Unavailable Ru Aly Consulting Unavailab Issac Walsh Consulting Unavailable Lei Ch Consulting Unavailable Ayah Constantino Consulting Unavailable Maddi, Dharmesh Consulting Unavailable Sienan Matt Consulting Unavailable Vito Rey Consulting Unavailable Nelda Mata Consulting Unavailable Hayder George Consulting Unavailable Daromaprimitivo Obsen Andrade Consulting Unavailable Amada Arzate Consulting Unavailable Bailey Hinton Consulting Unavailable Alahmad Alamonica Consulting Unavailable Rios Lara Consulting Unavailable Miller Healy Consulting Unavailable Jairo Carter Consulting Unavailable Tono Ch Consulting Unavailable Freddy Linares Consulting Unava ilable Brit Shannon Consulting Unavailable Katy Garland Consulting Unavailable Denny Cook Consulting Unavailable Ariela Lozano Consulting Unavailable [facility] Unav ailable Nigel Rdz Admitting Unavailab chidi Rdz, Nigel Attending Unavailab Nigel Staples Attending Unavailab le Jose Carlos Lindquist Admitting Unavailable [facility] Unav ailable Jaclyn Gudino Jr Admitting Unavailable Jaclyn Gudino Jr Attending Unavailable [facility] Unav ailable [facility] Unav ailable Davonte Mendez Admitting Unavailable Davonte Mendez Attending Unavailable [facility] Unav ailable Jaclyn Gudino Jr Attending Unavailable Jaclyn Gudino Jr Admitting Unavailable [facility] Unav ailable Davonte Mendez Attending Unavailable Davonte Mendez Admitting Unavailable Kendell Nigel Attending Unavailab chidi Rdz Nigel Admitting Unavailab [facility] Unav ailable Jose Carlos Lindquist Consulting Unavailable Ramón Mcgarry Admitting Unavailable Alix Neff Attending Unavailable DaromarRory Attending Unavailable Daromaprimitivo Obsen Andrade Admitting Unavailable Marlin Angel Consulting Unavailable [facility] Unav ailable Vinod Worley Consulting Unavailable Annemarie Benton Consulting Unavailable Robert Akers Consulting Unavailable Remigio White Consulting Unavailab Jose Winters Consulting Unavailable Brit Duvall Consulting Unavailable Isha Gan Consulting Unavailable Ju Han Consulting Unavailable Nigel Rdz Consulting Unavailab Hayder Yeboah Admitting Unavailable Liam Rodriguez Attending Unavailable [facility] Unav ailable Allergies Allergy Classification Reported Allergen(s) Allergy Type Date of Onset Reaction(s) Facility (18 sources) Codeine; Translations: [Codeine Derivatives] Drug Allergy 3 Disorientated (finding), Mental Status Change [facility] [employer] ([place] DO Work Phone: (8 sources) Adhesive Tape; Translations: [Tape] Drug allergy Weal (disorder) [facility] (8 sources) Bee pollen; Translations: [bee pollen] Drug Allergy Weal (disorder) [facility] (15 sources) Ibuprofen; Translations: [ibuprofen] Drug Allergy Stomach ache (finding) [facility] (20 sources) Latex; Translations: [LATEX] Drug allergy 2 Weal (disorder), Rash [facility] (20 sources) Codeine; Translations: [CODEINE] Drug Allergy 3 Unknown Reaction, dizzy [facility] (2 sources) Latex rubber gloves; Translations: [Latex Gloves] Allergy to drug (finding) [facility] [employer] DO Work Phone: (1 source) Ibuprofen; Translations: [Motrin] Drug Allergy [facility] Medications Current Medications Medication Drug Class(es) Dates Sig (Normalized) Sig (Original) acetaminophen 500 mg oral tablet (7 sources) Start: 08-19-2019 take 1 tablet by mouth every six hours as needed for pain Tylenol Extra Strength 500 mg oral tablet 500 mg = 1 tab(s), Oral, q6hr, PRN as needed for pain, Refills(s) 0, Pain Start Date: 08/19/19 Status: Ordered {1 (Ascorbic Acid 7540 MG / POLYETHYLENE GLYCOL 3350 66468 MG / Potassium Chloride 1200 MG / Sodium Ascorbate 39940 MG / Sodium Chloride 3200 MG Powder for Oral Solution) / 1 (POLYETHYLENE GLYCOL 3350 259605 MG / Potassium Chloride 1000 MG / Sodium Chlori (3 sources) Osmotic Laxative, Vitamin C Start: 04-10-2023 Plenvu oral powder for reconstitution See Instructions, 1 EA, Refill(s) 0, Prior to colonoscopy., [id number], 177, cm, 04/10/23 12:40:00 EDT, Height/Length Dosing, 119.2, kg, 04/10/23 12:40:00 EDT, Weight Dosing Start Date: 04/10/23 Status: Ordered atorvastatin 80 mg oral tablet (20 sources) HMG-CoA Reductase Inhibitor Start: 08-11-2013 End: 04-06-2024 take 1 tablet by mouth once daily atorvastatin (LIPITOR) 80 mg tablet Take 1 tablet by mouth once daily. 0 08/11/2013 Active Comment on above: Take 1 tablet by demetria th once daily. Blood Sugar Diagnostic (14 sources) Start: 03-28-2023 Blood Sugar Diagnostic Active STRIP March 27, 2023 11:00pm [facility] Start: 03-28-2023 Blood Sugar Di agnostic Active STRIP March 28, 2023 12:00am [facility] Blood-Glucose Meter (14 sources) Start: 03-28-2023 Blood-Glucose Meter Active KIT March 27, 2023 11:00pm [facility] AC/HS Start: 03-28-2023 Blood-Glucose Meter Active KIT March 28, 2023 12:00am [facility] busPIRone hydrochloride 5 mg oral tablet (11 sources) Start: 12-14-2023 End: 04-06-2024 citalopram 40 mg oral tablet (20 sources) Serotonin Reuptake Inhibitor Start: 07-07-2018 End: 06-21-2022 Start: 08-11-2013 End: 04-06-2024 take 1 tablet by mouth once daily citalopram 40 mg tablet Take 1 tablet by mouth once daily. 0 08/11/2013 Active Comment on above: Take 1 tablet by demetria th once daily. clopidogrel 75 mg oral tablet (20 sources) P2Y12 Platelet Inhibitor Start: 013 End: take 1 tablet by mouth once daily clopidogrel (PLAVIX) 75 mg tablet Take 1 tablet by mouth once daily. 0 08/11/2013 Active Comment on above: Take 1 tablet by demetria once daily. diclofenac sodium 0.01 mg/mg topical gel (1 source) Nonsteroidal Anti-inflammatory Drug Start: docusate sodium 100 mg oral capsule (7 sources) Start: take 1 capsule by mouth twice daily as needed for constipation Colace 100 mg Cap 100 mg = 1 cap(s), Oral, BID, PRN for constipation, # 20 cap(s), Refills(s) 0, Pharmacy: [id number], 182, cm, 11/04/19 6:08:00 EDT, Height/Length Measured, 157.6, kg, 11/04/19 6:08:00 EDT, Weight Measured Start Date: 11/04/19 Status: Ordered donepezil hydrochloride 10 mg oral tablet (13 sources) Start: End: dulaglutide (6 sources) GLP-1 Receptor Agonist Start: Trulicity Pen Refills(s) 0, High blood sugar Start Date: 07/26/22 Status: Ordered Start: 07-26-2022 Trulicity Pen Refills(s) 0 Start Date: 07/26/22 Status: Ordered Dulaglutide (Trulicity) 3 mg /0.5 mL Pen Injector (19 sources) Start: 06-21-2022 Dulaglutide (T rulicity) 3 mg/0.5 mL Pen Injector Active 3 MG SUBCUT every week June 20, 2022 11:00pm Start: 06-21-2022 Dulaglutide (T rulicity) 3 mg/0.5 mL Pen Injector Active 3 MG SUBCUT every week June 21, 2022 12:00am famotidine 20 mg oral tablet (20 sources) Histamine-2 Receptor Antagonist Start: 03-24-2024 End: 04-06-2024 Start: 03-26-2023 End: 03-30-2023 take 1 tablet by mouth twice daily Famotidine (Pepcid) 20 mg tablet Discontinued 20 MG PO Twice daily March 26, 2023 12:00am March 30, 2023 12:29pm Start: 06-21-2022 End: 12-11-2023 Start: 08-26-2021 take 1 tablet by demetria th at bedtime Famotidine 40 MG Oral Tablet take 1 tablet by mouth at bedtime Quantity: 90 Refills: 0 Ordered: 26-Aug-2021 DO Start : 26-Aug-2021 Active fluticasone propionate 0.05 mg/actuat metered dose nasal spray (20 sources) Corticosteroid Start: 06-21-2022 Fluticasone Pr opionate Active 2 SPRAY INTRANASAL Daily June 21, 2022 12:00am Start: 11-12-2021 take 2 puff(s) by in halation twice daily fluticasone CFC free 44 mcg/inh Inh Aer w/adapter 2 puff(s), Inhalation, BID, 10.6 gram, Refill(s) 0, Allergy symptoms Start Date: 11/12/21 Status: Ordered Start: 09-07-2021 End: 04-06-2024 fluticasone CFC free 44 mcg/inh Inh Aer w/adapter (1 source) Start: 11-12-2021 take 2 puff(s) by inhalation twice daily fluticasone CFC free 44 mcg/inh Inh Aer w/adapter 2 puff(s), Inhalation, BID, 10.6 gram, Refill(s) 0 Start Date: 11/12/21 Status: Ordered furosemide 20 mg oral tablet (20 sources) Loop Diuretic Start: 08-19-2019 End: 04-06-2024 FUROSEMIDE ORAL Take by mouth. Active FUROSEMIDE ORAL Take by mouth. 0 Active Comment on above: Take by mouth. gabapentin 600 mg oral table t (20 sources) Anti-epileptic Agent Start: 12-11-2023 End: 01-05-2024 Start: 07-07-2018 End: 12-15-2023 Start: 07-07-2018 End: 12-15-2023 take 1200 mg by mouth three times daily Gabapentin Discontinued 1200 MG PO Three times daily July 07, 2018 1:00am December 15, 2023 10:09am Start: 07-07-2018 take 400 mg by mouth three times daily Gabapentin Active 400 MG PO Three times daily July 07, 2018 1:00am Start: 08-11-2013 End: 07-07-2018 take 2 capsules by mouth three times daily gabapentin (NEURONTIN) 300 mg capsule Take 2 capsules by mouth three times daily. 08/11/2013 Active Comment on above: Take 2 capsules by mouth three times shaylee ly. 3 ml insulin aspart protamine, human 70 unt/ml / insulin aspart, human 30 unt/ml pen injector (5 sources) Insulin Analog inject 2 [IU] by subcutaneous injection twice daily before mealtime insulin aspart protamine-insulin aspart 70-30 (NOVOLOG MIX 70-30) 100 unit/mL (70-30) inpn injection Inject 2 Units subcutaneously twice daily before meals. 2-units for every 10 carbs with every meal. 4-5 times per day. Active Comment on above: Inject 2 Units subcutaneously twice lidya y before meals. 2-units for every 10 carbs with every meal. 4-5 times per day. Insulin Aspart U-100 (Novolog Flexpen U-100 Insulin) 100 unit/mL (3 mL) Insulin Pen (20 sources) Start: Insulin Aspart U-100 (Novolog Flexpen U-100 Insulin) 100 unit/mL (3 mL) Insulin Pen Active 0 UNIT SUBCUT 3x/Day with meals,bedtime,2a 0 December 11, 2023 12:00am Start: 06-24-2022 End: 12-11-2023 Insulin Aspart U-100 (Novolo g Flexpen U-100 Insulin) 100 unit/mL (3 mL) Insulin Pen Discontinued 0 UNITS SUBCUT 3X/Day with meals and bedtime 0 June 24, 2022 12:00am December 11, 2023 12:23pm Start: 06-24-2022 Insulin Aspart U-100 (Novolog Flexpen U-100 Insulin) 100 unit/mL (3 mL) Insulin Pen Active 0 UNITS SUBCUT 3X/Day with meals and bedtime 0 June 23, 2022 11:00pm Start: 06-24-2022 Insulin Aspart U-100 (Novolog Flexpen U-100 Insulin) 100 unit/mL (3 mL) Insulin Pen Active 0 UNITS SUBCUT 3X/Day with meals and bedtime 0 June 24, 2022 12:00am 3 ml insulin glargine 100 un t/ml pen injector (20 sources) Insulin Analog Start: 07-07-2018 End: 04-06-2024 Start: 07-07-2018 inject 35 [IU] by nino bcutaneous injection twice daily Insulin Glargine Active 35 UNIT SUBCUT Twice daily July 07, 2018 1:00am Start: 07-07-2018 inject 64 [IU] by nino bcutaneous injection once daily in the morning Insulin Glargine Active 64 UNIT SUBCUT Every morning July 07, 2018 1:00am Start: 07-07-2018 Insulin Glargi ne Active 0 .ROUTE .COMPLEX July 07, 2018 1:00am 64units qam, 61units qpm inject 62 [IU] by nino bcutaneous injection twice daily insulin glargine (LANTUS) 100 unit/mL (3 mL) inpn Inject 62 Units subcutaneously twice daily. Active inject 62 [IU] by nino bcutaneous injection twice daily insulin glargine (LANTUS) 100 unit/mL (3 mL) inpn Inject 62 Units subcutaneously twice daily. 0 Active Comment on above: Inject 62 Units subc utaneously twice daily. 24 hr isosorbide mononitrate 30 mg extended release oral tablet (20 sources) Nitrate Vasodilator Start: 013 End: 021 take 1 tablet by mouth once daily isosorbide mononitrate ER (IMDUR) 30 mg 24 hr tablet Take 1 tablet by mouth once daily. 0 08/11/2013 Active Comment on above: Take 1 tablet by demetria once daily. Lantus Solostar Pen (14 sources) Start: 019 inject 62 [IU] by subcutaneous injection once daily at bedtime Lantus Solostar Pen 62 unit(s), SubCutaneous, Once a day (at bedtime), Refill(s) 0, Blood glucose Start Date: 08/19/19 Status: Ordered Start: 08-19-2019 inject 64 [IU] by nino bcutaneous injection once daily in the morning Lantus Solostar Pen 64 unit(s), SubCutaneous, Daily, Refill(s) 0, am, Blood glucose Start Date: 08/19/19 Status: Ordered melatonin 3 mg oral tablet (9 sources) Start: 08-19-2019 take 1 tablet by mouth once daily at bedtime as needed melatonin 3 mg Tab 3 mg = 1 tab(s), Oral, Once a day (at bedtime), PRN for insomnia, # 60 tab(s), Refills(s) 0, Sleep Start Date: 08/19/19 Status: Ordered Melatonin ER 3 M G Oral Tablet Extended Release TAKE DIRECTED. Quantity: 0 Refills: 0 Ordered: 24-Jul-2022 DO Active metoprolol tartrate 50 mg or al tablet (20 sources) beta-Adrenergic Bebe Start: 06-21-2022 End: 04-06-2024 Start: 01-08-2022 take 1 tablet by demetria th every twelve hours Metoprolol Tartrate 50 MG Oral Tablet TAKE 1 TABLET EVERY 12 HOURS. Quantity: 180 Refills: 3 Ordered: 14-Feb-2023 Endy Santoyo MD Start : 08-Jan-2022 Active Start: 06-15-2020 End: 06-21-2022 Start: 08-19-2019 take 1 tablet by demetria th twice daily metoprolol 100 mg ER Tab 100 mg = 1 tab(s), Oral, BID, Refills(s) 0, High blood pressure Start Date: 08/19/19 Status: Ordered Start: 08-11-2013 take 1 tablet by demetria th twice daily metoprolol tartrate, short acting, (LOPRESSOR) 100 mg tablet Take 1 tablet by mouth twice daily. 0 08/11/2013 Active Comment on above: Take 1 tablet by demetria twice daily. nitroglycerin 0.4 mg sublingual tablet (20 sources) Nitrate Vasodilator Start: 11-12-2021 nitroglycerin 0.1 mg/hr transdermal film, extended release patch(es), TransDermal, Daily, Refills(s) 0 Start Date: 11/12/21 Status: Ordered Start: 06-15-2020 End: 04-06-2024 nitroglycerin 0.1 mg/hr transdermal film, extended release (6 sources) Start: 11-12-2021 nitroglycerin 0.1 mg/hr transdermal film, extended release patch(es), TransDermal, Daily, PRN Chest pain, Refills(s) 0 Start Date: 11/12/21 Status: Ordered NovoLog FlexPen (7 sources) Start: 08-19-2019 NovoLog FlexPen See Instructions, 3 units per 10 carbs tid before a meal subq, Refills(s) 0 Start Date: 08/19/19 Status: Ordered omeprazole 40 mg Cap-DR (1 source) Start: 11-14-2021 omeprazole 40 mg Cap-DR mg cap(s), Oral, Daily, Refills(s) 0, Control of stomach acid Start Date: 11/14/21 Status: Ordered Ozempic (1 source) Start: 12-24-2021 inject 1 mg by subcutaneous injection every week Ozempic 1 mg, SubCutaneous, qWeek, Refill(s) 0 Start Date: 12/24/21 Status: Ordered pantoprazole 40 mg delayed release oral tablet (20 sources) Proton Pump Inhibitor Start: 01-09-2022 take 1 tablet by mouth once daily pantoprazole 40 mg Oral EC Tab 40 mg = 1 tab(s), Oral, Daily, # 30 tab(s), Refills(s) 3, Pharmacy: [id number], 177, cm, 01/09/22 10:21:00 EDT, Height/Length Dosing, 142, kg, 01/09/22 10:21:00 EDT, Weight Dosing Start Date: 01/09/22 Status: Ordered Start: 10-24-2021 End: 04-06-2024 Primidone (20 sources) Anti-epileptic Agent Start: 04-06-2024 Start: 03-24-2024 End: 04-06-2024 Start: 03-24-2024 Start: 03-24-2024 take 125 mg by mouth three times daily Primidone Active 125 MG PO Three times daily March 24, 2024 12:00am Start: 06-15-2020 End: 03-24-2024 Start: 06-15-2020 End: 03-24-2024 take 1 tablet by mouth three times daily Primidone (Mysoline) 50 mg tablet Discontinued 100 MG PO Three times daily June 15, 2020 12:00am March 24, 2024 11:35am Start: 06-15-2020 take 100 mg by mouth three times daily Primidone Active 100 MG PO Three times daily June 15, 2020 12:00am prochlorperazine 10 mg oral tablet (20 sources) Phenothiazine Start: 08-19-2019 take 5 mg by mouth three times daily as needed for nausea Compazine 10 mg oral tablet 5 mg = 0.5 tab(s), Oral, TID, PRN Nausea, Refills(s) 0, Nausea Start Date: 08/19/19 Status: Ordered Start: 07-07-2018 End: 03-30-2023 take 1 tablet by demetria th three times daily Prochlorperazine Maleate 5 MG Oral Tablet TAKE 1 TABLET 3 TIMES DAILY. Quantity: 0 Refills: 0 Ordered: 24-Jul-2022 DO Active QUEtiapine 100 mg oral table t (20 sources) Atypical Antipsychotic Start: 04-05-2024 Start: 08-26-2021 End: 04-06-2024 Start: 08-26-2021 take 1 mg by mouth twice daily quetiapine 50 mg oral tablet mg tab(s), Oral, BID, Refills(s) 0, Depression Start Date: 11/12/21 Status: Ordered rOPINIRole 0.5 mg oral table t (20 sources) Nonergot Dopamine Agonist Start: 11-12-2021 End: 04-06-2024 Start: 07-31-2021 take 0.5 mg by mouth once daily at bedtime Ropinirole Active 0.5 MG PO Daily at bedtime June 21, 2022 12:00am Start: 06-15-2020 End: 06-21-2022 Ozempic (6 sources) Start: 12-24-2021 inject 1 mg by subcutaneous injection every week Ozempic 1 mg, SubCutaneous, qWeek, Refill(s) 0, Blood glucose Start Date: 12/24/21 Status: Ordered sucralfate 1000 mg oral tablet (20 sources) Aluminum Complex Start: 11-14-2021 Carafate 1 gram Tab gm tab(s), Oral, QIDACHS, Refills(s) 0, Control of stomach acid Start Date: 11/14/21 Status: Ordered Start: 06-16-2020 End: 06-21-2022 Start: 06-16-2020 End: 06-21-2022 take 1 tablet by mouth at bedtime Sucralfate (Carafate) 1 gram tablet Discontinued 1 GM PO Before meals and at bedtime 60 June 16, 2020 12:00am June 21, 2022 4:23pm traZODone hydrochloride 50 mg oral tablet (11 sources) Serotonin Reuptake Inhibitor Start: 12-15-2023 End: 04-06-2024 24 hr venlafaxine 37.5 mg extended release oral capsule (20 sources) Serotonin and Norepinephrine Reuptake Inhibitor Start: 11-14-2021 take 1 mg by mouth once daily venlafaxine 37.5 mg Cap-ER mg cap(s), Oral, Daily, Refills(s) 0, Depression Start Date: 11/14/21 Status: Ordered Start: 11-14-2021 take 1 mg by mouth once daily venlafaxine 37.5 mg Cap-ER mg cap(s), Oral, Daily, Refills(s) 0, Depression Start Date: 11/14/21 Status: Ordered Start: 06-15-2020 End: 06-21-2022 (19 sources) Start: 04-06-2024 Start: 04-06-2024 Start: 01-05-2024 End: 03-24-2024 Start: 12-11-2023 End: 04-06-2024 Start: 12-11-2023 Start: 03-28-2023 Start: 06-24-2022 End: 12-11-2023 Start: 06-21-2022 End: 04-06-2024 Start: 06-21-2022 Start: 07-07-2018 End: 04-06-2024 Start: 07-07-2018 Completed/Discontinued Medications Medication Drug Class(es) Dates Sig (Normalized) Sig (Original) acetaminophen 325 mg / HYDROcodone bitartrate 5 mg oral tablet (20 sources) Opioid Agonist Start: 01-15-2022 End: 06-25-2022 Start: 01-15-2022 End: 06-25-2022 take 1 tablet by mouth three times daily Hydrocodone-Acetaminophen Discontinued 1 TAB PO Three times daily 6 2 January 15, 2022 June 25, 2022 1:12pm Start: 06-16-2020 End: 07-31-2021 Start: 06-16-2020 End: 07-31-2021 take 1 tablet by mouth every six hours Hydrocodone-Acetaminophen Discontinued 1 TAB PO Q6H 12 3 June 16, 2021 July 31, 2021 4:47pm Start: 11-04-2019 [place] 325 mg-5 mg oral tablet See Instructions, for pain, 40 tab(s), Refill(s) 0, 1-2 tab(s) Oral q4hr, [facility], 182, cm, 11/04/19 6:08:00 EDT, Height/Length Measured, 157.6, kg, 11/04/19 6:08:00 EDT, Weight Measured Start Date: 11/04/19 Status: Ordered acetaminophen 325 mg / oxyCO DONE hydrochloride 5 mg oral tablet (20 sources) Opioid Agonist Start: 02-24-2024 End: 03-24-2024 Start: 02-24-2024 End: 03-24-2024 take 1 tablet by mouth every six hours Oxycodone-Acetaminophen (Percocet) 5-325 mg tablet Discontinued 1 TAB PO Every 6 hours 10 February 24, 2024 March 24, 2024 11:23am Start: 12-27-2023 End: 01-05-2024 Start: 12-27-2023 End: 01-05-2024 take 1 tablet by mouth every six hours Oxycodone-Acetaminophen (Percocet) 5-325 mg tablet Discontinued 1 TAB PO Q6H 10 December 27, 2023 January 05, 2024 3:42am Start: 07-07-2018 End: 06-16-2020 Start: 07-07-2018 End: 06-16-2020 take 1 tablet by mouth every six hours Oxycodone-Acetaminophen (Percocet) 5-325 mg tablet Discontinued 1 TAB PO Q6H 20 July 07, 2018 June 16, 2020 12:00am aspirin 325 mg delayed release oral tablet (20 sources) Platelet Aggregation Inhibitor, Nonsteroidal Anti-inflammatory Drug Start: 08-19-2019 End: 06-25-2022 Start: 08-11-2013 take 1 tablet by demetria th once daily aspirin 325 mg tablet Take 1 tablet by mouth once daily. 0 08/11/2013 Active Comment on above: Take 1 tablet by demetria th once daily. azithromycin 500 mg oral tab let (20 sources) Macrolide Antimicrobial Start: 06-25-2022 End: 03-27-2023 canagliflozin 100 mg oral ta blet (20 sources) Sodium-Glucose Cotransporter 2 Inhibitor Start: 03-30-2023 End: 12-11-2023 Start: 12-18-2021 take 1 tablet by demetria th once daily at mealtime Invokana 100 mg oral tablet TAKE 1 TABLET BY MOUTH DAILY BEFORE THE FIRST MEAL OF THE DAY, High blood sugar Start Date: 12/12/22 Status: Ordered Start: 12-18-2021 End: 06-25-2022 Start: 07-07-2018 End: 03-27-2023 Start: 07-07-2018 End: 03-27-2023 take 300 mg by mouth once daily Canagliflozin Disconti nued 300 MG PO Daily July 07, 2018 1:00am March 27, 2023 2:35am cholecalciferol 0.125 mg oral capsule (20 sources) Vitamin D Start: 07-07-2018 End: 12-11-2023 Dextromethorphan / guaiFENesin (5 sources) Uncompetitive B-xzmpxw-L-aspartat e Receptor Antagonist, Sigma-1 Agonist Start: 01-05-2024 End: 03-24-2024 take 1 mL by mouth every eight hours Dextromethorphan- Guaifenesin (Robitussin Cough-Chest Jose Eduardo Dm) 5-100 mg/5 mL liquid Discontinued 10 ML PO Every 8 hours January 05, 2024 12:00am March 24, 2024 11:43am Start: 01-05-2024 take 1 mL by mouth every eight hours Dextromethorphan-Guaifenesin (Robitussin Cough-Chest Jose Eduardo Dm) 5-100 mg/5 mL liquid Active 10 ML PO Every 8 hours January 05, 2024 12:00am dicyclomine hydrochloride 20 mg oral tablet (20 sources) Anticholinergic Start: 03-21-2023 End: 12-11-2023 Start: 09-26-2021 End: 06-21-2022 docusate sodium 50 mg / andry osides, intermediate 8.6 mg oral tablet (20 sources) Start: 07-07-2018 End: 06-16-2020 Start: 07-07-2018 End: 06-16-2020 take 2 tablets by mouth once daily Sennosides-Docusate Sodium (Senna Laxative-Stool Softener) 8.6-50 mg tablet Discontinued 2 TAB PO Daily July 07, 2018 1:00am June 16, 2020 12:00am erythromycin 250 mg oral tab let (20 sources) Macrolide, Macrolide Antimicrobial Start: 06-21-2022 End: 06-21-2022 Start: 12-24-2021 End: 01-23-2022 take 1 tablet by mouth twice daily Erythromycin Base 250 MG Oral Tablet TAKE 1 TABLET BY MOUTH TWO TIMES A DAY Quantity: 60 Refills: 0 Ordered: 26-Dec-2021 DO Start : 24-Dec-2021 Active 3 ml insulin aspart, human 100 unt/ml pen injector (20 sources) Insulin Analog Start: 10-15-2021 NovoLOG FlexPe n 100 UNIT/ML Subcutaneous Solution Pen-injector inject 3 units subcutaneously PER 10 CARBS four times a day as directed Quantity: 15 Refills: 0 Ordered: 16-Oct-2021 DO Start : 15-Oct-2021 Active Start: 07-07-2018 inject 3 [IU] by sub cutaneous injection four times daily Insulin Aspart U-100 Active 3 UNITS SUBCUT Four times daily July 07, 2018 12:00am Start: 07-07-2018 inject 3 [IU] by sub cutaneous injection four times daily Insulin Aspart U-100 Active 3 UNITS SUBCUT Four times daily July 07, 2018 1:00am insulin lispro 100 unt/ml injectable solution (2 sources) Insulin Analog HumaLOG 100 UNIT /ML Injection Solution as directed Quantity: 0 Refills: 0 Ordered: 24-Jul-2022 DO Active lidocaine 0.05 mg/mg medicated patch (20 sources) Antiarrhythmic, Amide Local Anesthetic Start: 06-16-2021 End: 03-30-2023 Start: 06-16-2021 End: 03-30-2023 apply 1 dose topically every twenty-four hours Lidocaine Discontinued 1 PATCH TOPICAL Q24H June 16, 2021 12:00am March 30, 2023 4:50pm leave on most painful area for up to 12 hrs Lidocaine 3.5 % External Patch Quantity: 0 Refills: 0 Ordered: 24-Jul-2022 DO Active lisinopril 2.5 mg oral table t (20 sources) Angiotensin Converting Enzyme Inhibitor Start: 12-11-2023 End: 03-24-2024 Start: 01-08-2022 take 1 tablet by demetria th once daily Lisinopril 2.5 MG Oral Tablet TAKE 1 TABLET DAILY. Quantity: 90 Refills: 3 Ordered: 14-Feb-2023 Endy Santoyo MD Start : 08-Jan-2022 Active Start: 07-07-2018 End: 12-11-2023 Start: 08-11-2013 take 1 tablet by demetria th once daily lisinopril 5 mg tablet Take 1 tablet by mouth once daily. 0 08/11/2013 Active Comment on above: Take 1 tablet by demetria th once daily. loperamide hydrochloride 2 m g oral capsule (20 sources) Opioid Agonist Start: 02-05-2024 End: 03-24-2024 Start: 09-27-2023 End: 12-11-2023 Start: 09-27-2023 End: 12-11-2023 take 1 capsule by mouth four times daily Loperamide (Imodium A-D) 2 mg capsule Discontinued 2 MG PO Four times daily 11 01September 27, 2023 1:00am December 11, 2023 4:53pm Start: 04-12-2023 End: 12-11-2023 magnesium oxide 400 mg oral tablet (11 sources) Start: 12-11-2023 End: 03-24-2024 meclizine hydrochloride 25 m g chewable tablet (20 sources) Antiemetic Start: 11-20-2022 End: 03-30-2023 Start: 07-07-2018 End: 12-11-2023 take 2 tablets by mouth three times daily meclizine 25 mg Tab 50 mg = 2 tab(s), Oral, TID, Refills(s) 0, Other (see comment) Start Date: 08/19/19 Status: Ordered Start: 07-07-2018 End: 12-11-2023 take 1 tablet by mouth three times daily Meclizine HCl - 25 MG Oral Tablet take 1 tablet by mouth three times a day if needed Quantity: 120 Refills: 0 Ordered: 07-Sep-2021 DO Start : 07-Sep-2021 Active Start: 07-07-2018 End: 12-11-2023 take 25 mg by mouth every eight hours Meclizine Discontinued 25 MG PO Q8H July 07, 2018 1:00am December 11, 2023 4:53pm meloxicam 15 mg oral tablet (16 sources) Nonsteroidal Anti-inflammatory Drug Start: 03-30-2023 End: 03-30-2023 metFORMIN hydrochloride 500 mg oral tablet (20 sources) Biguanide Start: 03-30-2023 End: 03-30-2023 Metformin Discontinued MG TABLET March 30, 2023 12:00am March 30, 2023 4:53pm Start: 07-07-2018 End: 04-06-2024 Start: 07-07-2018 take 500 mg by mouth once lidya y Metformin Active 500 MG PO Daily July 07, 2018 1:00am Start: 08-11-2013 take 2 tablets by mo uth twice daily metFORMIN 500 mg tablet Take 2 tablets by mouth twice daily. 0 08/11/2013 Active Comment on above: Take 2 tablets by mo [facility] twice daily. methocarbamol 750 mg oral ta blet (20 sources) Muscle Relaxant Start: 06-16-2021 End: 12-11-2023 naproxen 500 mg oral tablet (20 sources) Nonsteroidal Anti-inflammatory Drug Start: 07-07-2018 End: 03-30-2023 Start: 08-11-2013 take 1 tablet by demetria th once daily for pain naproxen (NAPROSYN) 500 mg tablet Take 1 tablet by mouth once daily. for pain. 08/11/2013 Active Comment on above: Take 1 tablet by demetria once daily. for pain. omeprazole 20 mg delayed rel ease oral capsule (20 sources) Proton Pump Inhibitor Start: 03-26-2023 End: 03-30-2023 Start: 07-07-2018 End: 04-16-2023 OMEPRAZOLE ORAL Take by mouth. Active take 2 capsules by [facility] once daily Omeprazole 20 MG Oral Capsule Delayed Release TAKE 2 CAPSULES DAILY. Quantity: 0 Refills: 0 Ordered: 24-Jul-2022 DO Active OMEPRAZOLE ORAL Take by mouth. 0 Active Comment on above: Take by mouth. ondansetron 4 mg oral tablet (20 sources) Serotonin-3 Receptor Antagonist Start: 02-05-2024 End: 03-24-2024 Start: 09-27-2023 End: 12-11-2023 Start: 12-11-2020 End: 12-11-2023 Start: 12-11-2020 End: 12-11-2023 take 4 mg by mouth every six hours Ondansetron Discontinued 4 MG PO Q6H March 30, 2023 12:00am December 11, 2023 4:52pm Ondansetron HCl - 4 MG Oral Tablet take as needed Quantity: 0 Refills: 0 Ordered: 23-Gilmar-2023 DO Active Ozempic (1 MG/DOSE) 4 MG/3ML Subcutaneous Solution Pen-injector (2 sources) Start: 05-23-2021 inject 1 mg by subcutaneous injection every week Ozempic (1 MG/DOSE) 4 MG/3ML Subcutaneous Solution Pen-injector inject 1 milligram subcutaneously every week Quantity: 3 Refills: 0 Ordered: 28-Aug-2021 DO Start : 23-May-2021 Active Trulicity 3 MG/0.5ML Subcutaneous Solution Pen-injector (2 sources) Trulicity 3 MG/0 .5ML Subcutaneous Solution Pen-injector as directed Quantity: 0 Refills: 0 Ordered: 24-Jul-2022 DO Active Vitamin D3 5000 intl units oral capsule (7 sources) Start: 08-19-2019 take 1 capsule by mouth once daily at mealtime Vitamin D3 5000 intl units oral capsule 5,000 International_Unit = 1 cap(s), Oral, Daily, with food, # 100 cap(s), Refills(s) 0, Prophylaxis Start Date: 08/19/19 Status: Ordered Problems Active Problems Problem Classification Problem Date Documented Da te Episodic/Chronic Abdominal pain (20 sources) Left flank pain; Translations: [Unspecified abdominal pain] 10-09-2021 Episodic Acute myocardial infarction (7 sources) Non-Q wave myocardial infarction Onset: 6 11-12-2021 Chronic Anxiety disorders (20 sources) Generalized anxiety disorder; Translations: [Generalized anxiety disorder] Onset: 4 12-12-2023 Chronic Asthma (7 sources) Asthma 11-12-2021 Chronic Conditions associated with dizziness or vertigo (20 sources) Vertigo; Translations: [Benign paroxysmal positional vertigo] 08-19-2019 Episodic Coronary atherosclerosis and other heart disease (20 sources) Coronary atherosclerosis; Translations: [Coronary atherosclerosis of [place] coronary artery] Onset: 4 11-12-2021 Chronic Coronary atherosclerosis and other heart disease (2 sources) Coronary atherosclerosis and other heart disease Onset: 9 Delirium, dementia, and amnestic and other cognitive disorders (5 sources) Dementia with behavioral disturbance; Translations: [Unspecified dementia, unspecified severity, with other behavioral disturbance ([facility])] Onset: 4 06-14-2024 Chronic Diabetes mellitus with complications (20 sources) Neuropathy due to diabetes mellitus; Translations: [Autonomic neuropathy due to type 2 diabetes mellitus] Onset: 3 08-19-2019 Chronic Diabetes mellitus without complication (20 sources) Diabetes mellitus; Translations: [Diabetes mellitus without mention of complication, type II or unspecified type, not stated as uncontrolled] Onset: 4 08-19-2019 Chronic Disorders of lipid metabolism (20 sources) Hyperlipidemia, unspecified; Translations: [Hyperlipidemia] Onset: 9 08-19-2019 Chronic Epilepsy; convulsions (7 sources) Seizure 11-12-2021 Episodic Esophageal disorders (20 sources) Gastroesophageal reflux disease without esophagitis; Translations: [Gastro-esophageal reflux disease without esophagitis] Onset: 2 Chronic Esophageal disorders (20 sources) Esophagitis; Translations: [Esophagitis] Onset: 3 03-26-2023 Episodic Essential hypertension (20 sources) Essential hypertension; Translations: [Unspecified essential hypertension] 08-19-2019 Chronic Gastroduodenal ulcer (except hemorrhage) (11 sources) Multiple gastric ulcers; Translations: [Gastric ulcer] Onset: 3 11-12-2021 Chronic Gastrointestinal hemorrhage (4 sources) Hemorrhage of rectum and anus; Translations: [Hemorrhage of anus and rectum] Onset: 3 Episodic Intracranial injury (20 sources) Intracranial injury; Translations: [Intracranial injury of other and unspecified nature without mention of open intracranial wound, unspecified state of consciousness] 06-21-2022 Episodic Miscellaneous mental health disorders (5 sources) Dissociative neurological symptom disorder; 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] Onset: 4 03-28-2024 Chronic Mood disorders (20 sources) Chronic depression; Translations: [Depressive disorder] Onset: 4 08-19-2019 Chronic Mood disorders (1 source) Mood disorders; Translations: [Depression, unspecified] Onset: 4 Noninfectious gastroenteritis (13 sources) Gastroenteritis; Translations: [Noninfective gastroenteritis and colitis, unspecified] 09-27-2023 Episodic Osteoarthritis (2 sources) Primary gonarthrosis, bilateral; Translations: [Bilateral primary osteoarthritis of knee] Onset: 3 04-22-2023 Chronic Other bone disease and musculoskeletal deformities (7 sources) Costal chondritis; Translations: [Chondrocostal junction syndrome [Tietze]] 01-05-2024 Episodic Other circulatory disease (6 sources) H/O: angina pectoris; Translations: [Personal history of other diseases of circulatory system] Episodic Other disorders of stomach and duodenum (1 source) Gastroparesis syndrome; Translations: [Gastroparesis] Onset: 3 Episodic Other gastrointestinal disorders (20 sources) Diarrhea; Translations: [Diarrhea, unspecified] Onset: 3 12-11-2020 Episodic Other gastrointestinal disorders (8 sources) Dysphagia; Translations: [Dysphagia, unspecified] Onset: 3 Episodic Other gastrointestinal disorders (16 sources) Occult blood in stools; Translations: [Other fecal abnormalities] 03-28-2023 Episodic Other gastrointestinal disorders (3 sources) Other fecal abnormalities; Translations: [Nonspecific abnormal findings in stool contents] 03-30-2023 Episodic Other hereditary and degenerative nervous system conditions (6 sources) Restless legs; Translations: [Restless legs syndrome] Onset: 4 03-24-2024 Chronic Other hereditary and degenerative nervous system conditions (4 sources) Restless legs syndrome; Translations: [Restless legs syndrome (RLS)] Onset: 4 03-27-2024 Chronic Other injuries and conditions due to external causes (7 sources) Foreign body in stomach; Translations: [Foreign body in stomach, initial encounter] Onset: 2 Episodic Other injuries and conditions due to external causes (7 sources) [place] 01-09-2022 Episodic Other injuries and conditions due to external causes (18 sources) Closed injury of head; Translations: [Unspecified injury of head, initial encounter] 12-28-2022 Episodic Other injuries and conditions due to external causes (9 sources) Minor head injury; Translations: [Unspecified injury of head, initial encounter] 12-27-2023 Episodic Other liver diseases (10 sources) Steatosis of liver; Translations: [Fatty (change of) liver, not elsewhere classified] Onset: 2 Chronic Other lower respiratory disease (17 sources) Rib pain; Translations: [Pleurodynia] 01-10-2023 Episodic Other nervous system disorders (7 sources) Carpal tunnel syndrome 12-26-2019 Chronic Other non-traumatic joint disorders (20 sources) Joint pain; Translations: [Pain in unspecified joint] 01-15-2022 Episodic Other non-traumatic joint disorders (20 sources) Hip pain; Translations: [Pain in right hip] 06-22-2022 Episodic Other non-traumatic joint disorders (1 source) Pain in right hip; Translations: [Pain in joint, pelvic region and thigh] 06-25-2022 Episodic Other non-traumatic joint disorders (1 source) Pain in unspecified knee; Translations: [Pain in joint, lower leg] 04-09-2024 Episodic Other non-traumatic joint disorders (3 sources) Knee joint effusion; Translations: [Effusion, unspecified knee] Onset: 4 04-16-2024 Episodic Other nutritional; endocrine; and metabolic disorders (8 sources) Morbid obesity; Translations: [Morbid obesity] Onset: 6 05-23-2016 Chronic Other nutritional; endocrine; and metabolic disorders (7 sources) Body mass index 40+ - severely obese; Translations: [Body Mass Index 45.0-49.9, adult] Chronic Other nutritional; endocrine; and metabolic disorders (1 source) Obesity; Translations: [Obesity, unspecified] Chronic Other nutritional; endocrine; and metabolic disorders (12 sources) Hypomagnesemia; Translations: [Hypomagnesemia] 12-11-2023 Chronic Other nutritional; endocrine; and metabolic disorders (9 sources) Hypomagnesemia; Translations: [Disorders of magnesium metabolism] Onset: 4 12-10-2023 Chronic Other nutritional; endocrine; and metabolic disorders (3 sources) Body mass index 30+ - obesity; Translations: [Obesity, unspecified] 03-24-2024 Chronic Other nutritional; endocrine; and metabolic disorders (4 sources) Obesity, unspecified; Translations: [Obesity, unspecified] Onset: 4 03-27-2024 Chronic Other screening for suspected conditions (not mental disorders or infectious disease) (20 sources) History of adenomatous polyp of colon; Translations: [Encounter for screening for malignant neoplasm of colon] Onset: 3 08-08-2020 Episodic Residual codes; unclassified (3 sources) Obstructive sleep apnea syndrome; Translations: [Obstructive sleep apnea (adult) (pediatric)] 03-24-2024 Chronic Residual codes; unclassified (4 sources) Obstructive sleep apnea (adult) (pediatric); Translations: [Obstructive sleep apnea (adult)(pediatric)] Onset: 4 03-27-2024 Chronic Residual codes; unclassified (7 sources) Swelling - edema - symptom 08-19-2019 Episodic Residual codes; unclassified (4 sources) Family history of polyp of colon; Translations: [Family history of colonic polyps] Onset: 3 Episodic Residual codes; unclassified (1 source) Pain, unspecified; Translations: [Pain] Onset: 3 Episodic Residual codes; unclassified (2 sources) Unresponsive ; Translations: [Transient alteration of awareness] 03-27-2024 Episodic Residual codes; unclassified (3 sources) Transient alteration of awareness; Translations: [Transient alteration of awareness] Onset: 4 03-29-2024 Episodic Residual codes; unclassified (1 source) Pain; Translations: [Pain, unspecified] 04-25-2023 Episodic Screening and history of mental health and substance abuse codes (4 sources) Ex-smoker; Translations: [Personal history of tobacco use] Episodic Comment on above: quit in 2005, smoked 2 PPD; Sprains and strains (20 sources) Injury of groin; Translations: [Strain of adductor muscle, fascia and tendon of left thigh, initial encounter] 06-16-2020 Episodic Suicide and intentional self-inflicted injury (20 sources) Suicidal thoughts; Translations: [Suicidal ideations] Onset: 4 12-11-2023 Episodic Unclassified (6 sources) Patient encounter status 07-26-2022 Past or Other Problems Problem Classification Problem Date Documented Da te Episodic/Chronic Acute bronchitis (14 sources) Acute bronchitis with bronchospasm; Translations: [Acute bronchitis, unspecified] Onset: 01-05-2024 01-05-2024 Episodic Diabetes mellitus without complication (20 sources) Acute hyperglycemia; Translations: [Hyperglycemia, unspecified] Onset: 12-10-2023 12-11-2023 Episodic E Codes: Fall (20 sources) Fall; Translations: [Unspecified fall, initial encounter] Onset: 12-26-2023 12-28-2022 Episodic E Codes: Place of occurrence (1 source) Unspecified place in unspecified non-institutional (private) residence as the place of occurrence of the external cause; Translations: [Unspecified place in unspecified non-institutional (private) residence as the place of occurrence of the external cause] Onset: 02-23-2024 Episodic Fluid and electrolyte disorders (20 sources) Acute hypokalemia; Translations: [Hypokalemia] Onset: 12-10-2023 12-11-2023 Episodic Nausea and vomiting (20 sources) Vomiting; Translations: [Vomiting, unspecified] Onset: 09-27-2023 03-26-2023 Episodic Nonspecific chest pain (20 sources) Chest pain; Translations: [Chest pain, unspecified] Onset: 01-05-2024 09-26-2021 Episodic Other bone disease and musculoskeletal deformities (7 sources) Chondrocostal junction syndrome [Tietze]; Translations: [Tietze's disease] Onset: 01-05-2024 01-05-2024 Episodic Other diseases of veins and lymphatics (5 sources) Varicocele; Translations: [Scrotal varices] Onset: 05-23-2016 05-23-2016 Episodic Other male genital disorders (5 sources) Pain in testicle; Translations: [Testicular pain, unspecified] Onset: 05-23-2016 05-23-2016 Episodic Other non-traumatic joint disorders (20 sources) Pain in left knee; Translations: [Left knee pain] Onset: 12-26-2023 03-29-2023 Episodic Other non-traumatic joint disorders (5 sources) Pain in right knee; Translations: [Pain in joint, lower leg] Onset: 12-26-2023 03-30-2023 Episodic Superficial injury; contusion (6 sources) Contusion of left knee; Translations: [Contusion of left knee, initial encounter] Onset: 02-23-2024 02-24-2024 Episodic Syncope (1 source) Syncope and collapse; Translations: [Syncope and collapse] Onset: 02-23-2024 Episodic Viral infection (20 sources) Disease caused by 2019-nCoV; Translations: [COVID-19] Onset: 02-05-2024 06-21-2022 Episodic Results Test Name Value Interpretation Reference Range Facility Capillary blood glucose marc urement by glucometer (mass/volume)Ordered By: Jose Carlos whelan 04-09-2024 Glucose [Mass/Vol] 215 mg/dL Normal [facility] Comment on above: Result Comment: [place] Glucose Reference Range is dependent on time and content of last meal. Glucose of more than 200 mg/dL in a nonstressed, ambulatory subject supports the diagnosis of Diabetes Mellitus. Performed By: #### G LULS ####Point of Care testing, Glucose Poct Glucometerson 0 04-09-2024 Commemt1 Glu2: Cleaned Meter Normal [facility] Comment on above: Result Comment: PERF ORMED BY:[address] [place] [place], [place] [phone] MEDICAL DIRECTORDAMIÁN BONNER M.D. Performed By: #### G LULS ####Point of Care testing, Glucose [Mass/Vol] 95 mg/dL Normal [facility] Comment on above: Result Comment: [facility] Glucose Reference Range is dependent on time and content of last meal. Glucose of more than 200 mg/dL in a nonstressed, ambulatory subject supports the diagnosis of Diabetes Mellitus.PERFORMED BY:[address] [place], [place] [phone] MEDICAL DIRECTORDAMIÁN BONNER M.D. Performed By: #### G LULS ####Point of Care testing, Glucose [Mass/Vol] 124 mg/dL Normal [facility] Comment on above: Result Comment: [facility] Glucose Reference Range is dependent on time and content of last meal. Glucose of more than 200 mg/dL in a nonstressed, ambulatory subject supports the diagnosis of Diabetes Mellitus.PERFORMED BY:[address] [place], [place] [phone] MEDICAL DIRECTORDAMIÁN BONNER M.D. Performed By: #### G LULS ####Point of Care testing, No Panel InformationOrdered By: Jose Carlos Lindquist on 04-09-2024 Glu2: cleaned meter [facility] Glucose Poct Glucometerson 0 04-08-2024 Glucose [Mass/Vol] 208 mg/dL Normal [facility] Comment on above: Result Comment: [place] [facility] Glucose Reference Range is dependent on time and content of last meal. Glucose of more than 200 mg/dL in a nonstressed, ambulatory subject supports the diagnosis of Diabetes Mellitus.PERFORMED BY:[address] [place], [place] [phone] MEDICAL DIRECTORDAMIÁN BONNER M.D. Performed By: #### G LULS ####Point of Care testing, Commemt1 Glu2: Cleaned Meter Normal [facility] Comment on above: Result Comment: PERF ORMED BY:[address] [place], [place] [phone] MEDICAL DIRECTORDAMIÁN BONNER M.D. Performed By: #### G LULS ####Point of Care testing, Glucose [Mass/Vol] 104 mg/dL Normal [facility] Comment on above: Result Comment: [place] [facility] Glucose Reference Range is dependent on time and content of last meal. Glucose of more than 200 mg/dL in a nonstressed, ambulatory subject supports the diagnosis of Diabetes Mellitus. Performed By: #### G LULS ####Point of Care testing, Commemt1 Glu2: Cleaned Meter Normal [facility] Comment on above: Result Comment: PERF ORMED BY:[address] [place], [place] [phone] MEDICAL DIRECTORDAMIÁN BONNER M.D. Performed By: #### G LULS ####Point of Care testing, Glucose [Mass/Vol] 301 mg/dL Normal [facility] Comment on above: Result Comment: [place] [facility] Glucose Reference Range is dependent on time and content of last meal. Glucose of more than 200 mg/dL in a nonstressed, ambulatory subject supports the diagnosis of Diabetes Mellitus. Performed By: #### G LULS ####Point of Care testing, Glucose [Mass/Vol] 75 mg/dL Normal [facility] Comment on above: Result Comment: [place] [facility] Glucose Reference Range is dependent on time and content of last meal. Glucose of more than 200 mg/dL in a nonstressed, ambulatory subject supports the diagnosis of Diabetes Mellitus.PERFORMED BY:[address] [place], [place] [phone] MEDICAL DIRECTORDAMIÁN BONNER M.D. Performed By: #### G LULS ####Point of Care testing, Glucose [Mass/Vol] 108 mg/dL Normal [facility] Comment on above: Result Comment: [place] [facility] Glucose Reference Range is dependent on time and content of last meal. Glucose of more than 200 mg/dL in a nonstressed, ambulatory subject supports the diagnosis of Diabetes Mellitus.PERFORMED BY:[address] [place], [place] [phone] MEDICAL DIRECTORDAMIÁN BONNER M.D. Performed By: #### G LULS ####Point of Care testing, Glucose Poct Glucometerson 0 04-07-2024 Glucose [Mass/Vol] 205 mg/dL Normal [facility] Comment on above: Result Comment: [place] [facility] Glucose Reference Range is dependent on time and content of last meal. Glucose of more than 200 mg/dL in a nonstressed, ambulatory subject supports the diagnosis of Diabetes Mellitus.PERFORMED BY:[address], [place] [phone] MEDICAL NOLBERTO BONNER M.D. Performed By: #### G LULS ####Point of Care testing, Glucose [Mass/Vol] 83 mg/dL Normal [facility] Comment on above: Result Comment: [place] [facility] Glucose Reference Range is dependent on time and content of last meal. Glucose of more than 200 mg/dL in a nonstressed, ambulatory subject supports the diagnosis of Diabetes Mellitus.PERFORMED BY:[address], [place] [phone] MEDICAL NOLBERTO BONNER M.D. Performed By: #### G LULS ####Point of Care testing, Glucose [Mass/Vol] 250 mg/dL Normal [facility] Comment on above: Result Comment: [place] [facility] Glucose Reference Range is dependent on time and content of last meal. Glucose of more than 200 mg/dL in a nonstressed, ambulatory subject supports the diagnosis of Diabetes Mellitus.PERFORMED BY:[address] [place], [place] [phone] MEDICAL DIRECTORDAMIÁN BONNER M.D. Performed By: #### G LULS ####Point of Care testing, Commemt1 Glu2: Cleaned Meter Normal [facility] Comment on above: Result Comment: PERF ORMED BY:[address] [place], [place] [phone] MEDICAL DIRECTORDAMIÁN BONNER M.D. Performed By: #### G LULS ####Point of Care testing, Glucose [Mass/Vol] 138 mg/dL Normal [facility] Comment on above: Result Comment: [place] [facility] Glucose Reference Range is dependent on time and content of last meal. Glucose of more than 200 mg/dL in a nonstressed, ambulatory subject supports the diagnosis of Diabetes Mellitus. Performed By: #### G LULS ####Point of Care testing, Commemt1 Glu2: Cleaned Meter Normal [facility] Comment on above: Result Comment: PERF ORMED BY:[address] [place], [place] [phone] MEDICAL DIRECTORDAMIÁN BONNER M.D. Performed By: #### G LULS ####Point of Care testing, Glucose [Mass/Vol] 134 mg/dL Normal [facility] Comment on above: Result Comment: [place] [facility] Glucose Reference Range is dependent on time and content of last meal. Glucose of more than 200 mg/dL in a nonstressed, ambulatory subject supports the diagnosis of Diabetes Mellitus. Performed By: #### G LULS ####Point of Care testing, Glucose Poct Glucometerson 0 04-06-2024 Glucose [Mass/Vol] 186 mg/dL Normal [facility] Comment on above: Result Comment: [place] [facility] Glucose Reference Range is dependent on time and content of last meal. Glucose of more than 200 mg/dL in a nonstressed, ambulatory subject supports the diagnosis of Diabetes Mellitus.PERFORMED BY:[address] [place], [place] [phone] MEDICAL DIRECTORDAMIÁN BONNER M.D. Performed By: #### G LULS ####Point of Care testing, Glucose [Mass/Vol] 197 mg/dL Normal [facility] Comment on above: Result Comment: [place] [facility] Glucose Reference Range is dependent on time and content of last meal. Glucose of more than 200 mg/dL in a nonstressed, ambulatory subject supports the diagnosis of Diabetes Mellitus.PERFORMED BY:[address] [place]MA[address]ju[place], [place] [phone] MEDICAL NOLBERTO BONNER M.D. Performed By: #### G LULS ####Point of Care testing, Glucose [Mass/Vol] 368 mg/dL Normal [facility] Comment on above: Result Comment: [place] Glucose Reference Range is dependent on time and content of last meal. Glucose of more than 200 mg/dL in a nonstressed, ambulatory subject supports the diagnosis of Diabetes Mellitus.PERFORMED BY:[address], [place] [phone] MEDICAL NOLBERTO BONNER M.D. Performed By: #### G LULS ####Point of Care testing, Commemt1 Glu2: Cleaned Meter Normal [facility] Comment on above: Result Comment: PERF ORMED BY:[address] [place], [place] [phone] AUGUSTA BONNER M.D. Performed By: #### G LULS ####Point of Care testing, Glucose [Mass/Vol] 199 mg/dL Normal [facility] Comment on above: Result Comment: [place] [facility] Glucose Reference Range is dependent on time and content of last meal. Glucose of more than 200 mg/dL in a nonstressed, ambulatory subject supports the diagnosis of Diabetes Mellitus. Performed By: #### G LULS ####Point of Care testing, Commemt1 Glu2: Cleaned Meter Normal [facility] Comment on above: Result Comment: PERF ORMED BY:[address] [place], [place] [phone] MEDICAL NOLBERTO BONNER M.D. Performed By: #### G LULS ####Point of Care testing, Glucose [Mass/Vol] 185 mg/dL Normal [facility] Comment on above: Result Comment: [place] [facility] Glucose Reference Range is dependent on time and content of last meal. Glucose of more than 200 mg/dL in a nonstressed, ambulatory subject supports the diagnosis of Diabetes Mellitus. Performed By: #### G LULS ####Point of Care testing, Glucose Poct Glucometerson 0 04-05-2024 Glucose [Mass/Vol] 234 mg/dL Normal [facility] Comment on above: Result Comment: [place] [facility] Glucose Reference Range is dependent on time and content of last meal. Glucose of more than 200 mg/dL in a nonstressed, ambulatory subject supports the diagnosis of Diabetes Mellitus.PERFORMED BY:[address] [place], [place] [phone] MEDICAL NOLBERTO BONNER M.D. Performed By: #### G LULS ####Point of Care testing, Glucose [Mass/Vol] 202 mg/dL Normal [facility] Comment on above: Result Comment: [place] [facility] Glucose Reference Range is dependent on time and content of last meal. Glucose of more than 200 mg/dL in a nonstressed, ambulatory subject supports the diagnosis of Diabetes Mellitus.PERFORMED BY:[address] [place], [place] [phone] MEDICAL NOLBERTO BONNER M.D. Performed By: #### G LULS ####Point of Care testing, Glucose [Mass/Vol] 340 mg/dL Normal [facility] Comment on above: Result Comment: [place] [facility] Glucose Reference Range is dependent on time and content of last meal. Glucose of more than 200 mg/dL in a nonstressed, ambulatory subject supports the diagnosis of Diabetes Mellitus.PERFORMED BY:[address] [place], [place] [phone] AUGUSTA BONNER M.D. Performed By: #### G LULS ####Point of Care testing, Glucose [Mass/Vol] 99 mg/dL Normal [facility] Comment on above: Result Comment: [place] [facility] Glucose Reference Range is dependent on time and content of last meal. Glucose of more than 200 mg/dL in a nonstressed, ambulatory subject supports the diagnosis of Diabetes Mellitus.PERFORMED BY:[address] [place], [place] [phone] MEDICAL NOLBERTO BONNER M.D. Performed By: #### G LULS ####Point of Care testing, Glucose [Mass/Vol] 166 mg/dL Normal [facility] Comment on above: Result Comment: [place] [facility] Glucose Reference Range is dependent on time and content of last meal. Glucose of more than 200 mg/dL in a nonstressed, ambulatory subject supports the diagnosis of Diabetes Mellitus.PERFORMED BY:[address] [place], [place] [phone] MEDICAL NOLBERTO BONNER M.D. Performed By: #### G LULS ####Point of Care testing, Glucose Poct Glucometerson 0 04-04-2024 Glucose [Mass/Vol] 289 mg/dL Normal [facility] Comment on above: Result Comment: [place] [facility] Glucose Reference Range is dependent on time and content of last meal. Glucose of more than 200 mg/dL in a nonstressed, ambulatory subject supports the diagnosis of Diabetes Mellitus.PERFORMED BY:[address] [place], [place] [phone] MEDICAL NOLBERTO BONNER M.D. Performed By: #### G LULS ####Point of Care testing, Commemt1 Glu2: Cleaned Meter Normal [facility] Comment on above: Result Comment: PERF ORMED BY:[address] [place], [place] [phone] AUGUSTA BONNER M.D. Performed By: #### G LULS ####Point of Care testing, Glucose [Mass/Vol] 273 mg/dL Normal [facility] Comment on above: Result Comment: [place] [facility] Glucose Reference Range is dependent on time and content of last meal. Glucose of more than 200 mg/dL in a nonstressed, ambulatory subject supports the diagnosis of Diabetes Mellitus. Performed By: #### G LULS ####Point of Care testing, Glucose [Mass/Vol] 274 mg/dL Normal [facility] Comment on above: Result Comment: [place] [facility] Glucose Reference Range is dependent on time and content of last meal. Glucose of more than 200 mg/dL in a nonstressed, ambulatory subject supports the diagnosis of Diabetes Mellitus. Performed By: #### G LULS ####Point of Care testing, Commemt1 Glu2: Cleaned Meter Normal [facility] Comment on above: Result Comment: PERF ORMED BY:[address] [place], [place] [phone] MEDICAL DIRECTORDAMIÁN BONNER M.D. Performed By: #### G LULS ####Point of Care testing, Glucose [Mass/Vol] 176 mg/dL Normal [facility] Comment on above: Result Comment: [place] [facility] Glucose Reference Range is dependent on time and content of last meal. Glucose of more than 200 mg/dL in a nonstressed, ambulatory subject supports the diagnosis of Diabetes Mellitus. Performed By: #### G LULS ####Point of Care testing, Commemt1 Glu2: Cleaned Meter Normal [facility] Comment on above: Result Comment: PERF ORMED BY:[address] [place], [place] [phone] MEDICAL DIRECTORDAMIÁN BONNER M.D. Performed By: #### G LULS ####Point of Care testing, Glucose [Mass/Vol] 171 mg/dL Normal [facility] Comment on above: Result Comment: [place] [facility] Glucose Reference Range is dependent on time and content of last meal. Glucose of more than 200 mg/dL in a nonstressed, ambulatory subject supports the diagnosis of Diabetes Mellitus. Performed By: #### G LULS ####Point of Care testing, Glucose Poct Glucometerson 0 04-03-2024 Glucose [Mass/Vol] 309 mg/dL Normal [facility] Comment on above: Result Comment: [place] [facility] Glucose Reference Range is dependent on time and content of last meal. Glucose of more than 200 mg/dL in a nonstressed, ambulatory subject supports the diagnosis of Diabetes Mellitus.PERFORMED BY:[address] [place], [place] [phone] MEDICAL DIRECTORDAMIÁN BONNER M.D. Performed By: #### G LULS ####Point of Care testing, Commemt1 Glu2: Cleaned Meter Normal [facility] Comment on above: Result Comment: PERF ORMED BY:[address] [place], [place] [phone] MEDICAL DIRECTORDAMIÁN BONNER M.D. Performed By: #### G LULS ####Point of Care testing, Glucose [Mass/Vol] 292 mg/dL Normal [facility] Comment on above: Result Comment: [place] [facility] Glucose Reference Range is dependent on time and content of last meal. Glucose of more than 200 mg/dL in a nonstressed, ambulatory subject supports the diagnosis of Diabetes Mellitus. Performed By: #### G LULS ####Point of Care testing, Commemt1 Glu2: Cleaned Meter Normal [facility] Comment on above: Result Comment: PERF ORMED BY:[address] [place] [phone] MEDICAL NOLBERTO BONNER M.D. Performed By: #### G LULS ####Point of Care testing, Glucose [Mass/Vol] 249 mg/dL Normal [facility] Comment on above: Result Comment: [place] [facility] Glucose Reference Range is dependent on time and content of last meal. Glucose of more than 200 mg/dL in a nonstressed, ambulatory subject supports the diagnosis of Diabetes Mellitus. Performed By: #### G LULS ####Point of Care testing, Commemt1 Glu2: Cleaned Meter Normal [facility] Comment on above: Result Comment: PERF ORMED BY:[address] [place], [place] [phone] AUGUSTA BONNER M.D. Performed By: #### G LULS ####Point of Care testing, Glucose [Mass/Vol] 113 mg/dL Normal [facility] Comment on above: Result Comment: [place] [facility] Glucose Reference Range is dependent on time and content of last meal. Glucose of more than 200 mg/dL in a nonstressed, ambulatory subject supports the diagnosis of Diabetes Mellitus. Performed By: #### G LULS ####Point of Care testing, Commemt1 Glu2: Cleaned Meter Normal [facility] Comment on above: Result Comment: PERF ORMED BY:[address] [place], [place] [phone] MEDICAL DIRECTORDAMIÁN BONNER M.D. Performed By: #### G LULS ####Point of Care testing, Glucose [Mass/Vol] 108 mg/dL Normal [facility] Comment on above: Result Comment: [place] [facility] Glucose Reference Range is dependent on time and content of last meal. Glucose of more than 200 mg/dL in a nonstressed, ambulatory subject supports the diagnosis of Diabetes Mellitus. Performed By: #### G LULS ####Point of Care testing, Glucose Poct Glucometerson 0 04-02-2024 Commemt1 Glu2: Cleaned Meter Normal [facility] Comment on above: Result Comment: PERF ORMED BY:[address] [place], [place] [phone] MEDICAL DIRECTORDAMIÁN BONNER M.D. Performed By: #### G LULS ####Point of Care testing, Glucose [Mass/Vol] 117 mg/dL Normal [facility] Comment on above: Result Comment: [place] [facility] Glucose Reference Range is dependent on time and content of last meal. Glucose of more than 200 mg/dL in a nonstressed, ambulatory subject supports the diagnosis of Diabetes Mellitus. Performed By: #### G LULS ####Point of Care testing, Glucose [Mass/Vol] 166 mg/dL Normal [facility] Comment on above: Result Comment: [place] [facility] Glucose Reference Range is dependent on time and content of last meal. Glucose of more than 200 mg/dL in a nonstressed, ambulatory subject supports the diagnosis of Diabetes Mellitus.PERFORMED BY:[address] [place], [place] [phone] MEDICAL DIRECTORDAMIÁN BONNER M.D. Performed By: #### G LULS ####Point of Care testing, Glucose [Mass/Vol] 186 mg/dL Normal [facility] Comment on above: Result Comment: [place] [facility] Glucose Reference Range is dependent on time and content of last meal. Glucose of more than 200 mg/dL in a nonstressed, ambulatory subject supports the diagnosis of Diabetes Mellitus.PERFORMED BY:[address] [place]ASQUEZ[place]juBRE[place], [place] [phone] MEDICAL DIRECTORDAMIÁN BONNER M.D. Performed By: #### G LULS ####Point of Care testing, Glucose [Mass/Vol] 101 mg/dL Normal [facility] Comment on above: Result Comment: [place] [facility] Glucose Reference Range is dependent on time and content of last meal. Glucose of more than 200 mg/dL in a nonstressed, ambulatory subject supports the diagnosis of Diabetes Mellitus.PERFORMED BY:[address] [place], [place] [phone] MEDICAL DIRECTORDAMIÁN BONNER M.D. Performed By: #### G LULS ####Point of Care testing, Commemt1 Glu2: Cleaned Meter Normal [facility] Comment on above: Result Comment: PERF ORMED BY:[address] [place], [place] [phone] MEDICAL DIRECTORDAMIÁN BONNER M.D. Performed By: #### G LULS ####Point of Care testing, Glucose [Mass/Vol] 82 mg/dL Normal [facility] Comment on above: Result Comment: [place] [facility] Glucose Reference Range is dependent on time and content of last meal. Glucose of more than 200 mg/dL in a nonstressed, ambulatory subject supports the diagnosis of Diabetes Mellitus. Performed By: #### G LULS ####Point of Care testing, Commemt1 Glu2: Cleaned Meter Normal [facility] Comment on above: Result Comment: PERF ORMED BY:[address] [place], [place] [phone] MEDICAL DIRECTORDAMIÁN BONNER M.D. Performed By: #### G LULS ####Point of Care testing, Glucose [Mass/Vol] 76 mg/dL Normal [facility] Comment on above: Result Comment: [place] [facility] Glucose Reference Range is dependent on time and content of last meal. Glucose of more than 200 mg/dL in a nonstressed, ambulatory subject supports the diagnosis of Diabetes Mellitus. Performed By: #### G LULS ####Point of Care testing, Cholesterol [Mass/volume] in Serum or PlasmaOrdered By: Jose Carlos Lindquist on 04-01-2024 Cholesterol [Mass/Vol] 109 mg/dL Low 140-200 [facility] Comment on above: Result Comment: Chol less than 200 mg/dl low risk Chol 201-239 mg/dl borderline risk Chol 240 mg/dl and greater high risk Performed By: #### T SH3 wRFLX, [id number], LIPID ####[facility] [id number] [place] [address] [facility] Cholesterol in LDL Calc [Mas s/Vol]Ordered By: Jose Carlos Lindquist on 04-01-2024 Cholesterol in LDL [Mass/Vol] 50 mg/dL 0-100 [facility] Cholesterol in VLDL Calc [Ma ss/Vol]Ordered By: Jose Carlos Lindquist on 04-01-2024 Cholesterol in VLDL [Mass/Vol] 21 mg/dL [facility] ECG 12 lead ECGon 04-01-2024 ECG 12 lead ECG Normal [facility] Glucose Poct Glucometerson 0 04-01-2024 Commemt1 Glu2: Cleaned Meter Normal [facility] Comment on above: Result Comment: PERF ORMED BY:[facility] [place] [address] [place], [place] [phone] MEDICAL DIRECTORDAMIÁN BONNER M.D. Performed By: #### G LULS ####Point of Care testing, Glucose [Mass/Vol] 112 mg/dL Normal [facility] Comment on above: Result Comment: [place] [facility] Glucose Reference Range is dependent on time and content of last meal. Glucose of more than 200 mg/dL in a nonstressed, ambulatory subject supports the diagnosis of Diabetes Mellitus. Performed By: #### G LULS ####Point of Care testing, Commemt1 Glu2: Cleaned Meter Normal [facility] Comment on above: Result Comment: PERF ORMED BY:[address] [address] [place], [place] [phone] MEDICAL DIRECTORDAMIÁN BONNER M.D. Performed By: #### G LULS ####Point of Care testing, Glucose [Mass/Vol] 112 mg/dL Normal [facility] Comment on above: Result Comment: [place] Glucose Reference Range is dependent on time and content of last meal. Glucose of more than 200 mg/dL in a nonstressed, ambulatory subject supports the diagnosis of Diabetes Mellitus. Performed By: #### G LULS ####Point of Care testing, Commemt1 Glu2: Cleaned Meter Normal [facility] Comment on above: Result Comment: PERF ORMED BY:[address] [place], [place] [phone] MEDICAL DIRECTORDAMIÁN BONNER M.D. Performed By: #### G LULS ####Point of Care testing, Glucose [Mass/Vol] 300 mg/dL Normal [facility] Comment on above: Result Comment: [place] om Glucose Reference Range is dependent on time and content of last meal. Glucose of more than 200 mg/dL in a nonstressed, ambulatory subject supports the diagnosis of Diabetes Mellitus. Performed By: #### G LULS ####Point of Care testing, Glucose [Mass/Vol] 183 mg/dL Normal [facility] Comment on above: Result Comment: [place] om Glucose Reference Range is dependent on time and content of last meal. Glucose of more than 200 mg/dL in a nonstressed, ambulatory subject supports the diagnosis of Diabetes Mellitus.PERFORMED BY:[address] [place] [address] [address] [place], [place] [phone] MEDICAL DIRECTORDAMIÁN BONNER M.D. Performed By: #### G LULS ####Point of Care testing, Glucose [Mass/Vol] 241 mg/dL Normal [facility] Comment on above: Result Comment: [place] om Glucose Reference Range is dependent on time and content of last meal. Glucose of more than 200 mg/dL in a nonstressed, ambulatory subject supports the diagnosis of Diabetes Mellitus.PERFORMED BY:[address] [place], [place] [phone] MEDICAL DIRECTORDAMIÁN BONNER M.D. Performed By: #### G LULS ####Point of Care testing, Lipid Panelon 04-01-2024 LDL Cholesterol,Calculated 50 mg/dL Normal 0-100 [facility] Comment on above: Result Comment: LDL ATP III CLASSIFICATION LDL less than 100 mg/dL Optimal LDL 100-129 mg/dL Near or above optimal LDL 130-159 mg/dL Borderline high LDL 160-189 mg/dL High LDL greater than 189 mg/dL Very high Performed By: #### T SH3 wRFLX, [id number], LIPID ####[place] [id number] [facility] Triglyceride w/Reflex 105 mg/dL Normal 0-149 [facility] Comment on above: Result Comment: TRIG ATP III CLASSIFICATION TRIG less than 150 mg/dL Normal TRIG 150-199 mg/dL Borderline high TRIG 200-500 mg/dL High TRIG greater than 500 mg/dL Very high Standard traceable to the Center for Disease Conrtrol and Prevention (CDC) test method. Performed By: #### T SH3 wRFLX, [id number], LIPID ####[place] [id number] [facility] VLDL CHOLESTEROL 21 mg/dL Normal [facility] Comment on above: Performed By: #### T SH3 wRFLX, [id number], LIPID ####[facility] [place] [address] [facility] Serum or plasma high density lipoprotein (HDL) cholesterol measurementOrdered By: Jose Carlos Lindquist on 04-01-2024 Cholesterol in HDL [Mass/Vol] 38 mg/dL Normal 23-92 [facility] Comment on above: Result Comment: HDL CHOL ATP-III CLASSIFICATION Cardiovascular Risk HDL > or equal to 60 mg/dL LOW HDL < 40 mg/dL HIGH Performed By: #### T SH3 wRFLX, [id number], LIPID ####[facility] [id number] [place] [address] [facility] Serum or plasma total choles terol/high density lipoprotein (HDL) cholesterol mass ratOrdered By: Jose Carlos Lindquist on 04-01-2024 Cholesterol.total/Lois sterol in HDL [Mass ratio] 2.9 {ratio} Normal <5.0 [facility] Comment on above: Performed By: #### T SH3 wRFLX, [id number], LIPID ####[address] [place] [address] [facility] Thyroid Stim Hormone w/Rflxo n 04-01-2024 Thyroid Stim Hormone w/Rflx 1.29 u[iU]/mL Normal 0.45-5.33 [facility] Comment on above: Performed By: #### T SH3 wRFLX, [id number], LIPID ####[place] [address] [place] [address] [facility] Thyrotropin [Units/volume] i n Serum or PlasmaOrdered By: Jose Carlos Lindquist on 04-01-2024 TSH Qn 1.29 m[IU]/L 0.45-5.33 [facility] Triglyceride [Mass/volume] i n Serum or PlasmaOrdered By: Jose Carlos Lindquist on 04-01-2024 Triglyceride [Mass/Vol] 105 mg/dL 0-149 [facility] Vitamin D 25 Hydroxy Totalon 04-01-2024 Vitamin D 25 Hydroxy Total 30.8 ng/mL Normal 30-100 [facility] Comment on above: Result Comment: [place] MIN D STATUS 25(OH)VITAMIN D RANGE (ng/mL) Deficient <20 Insufficient 20 to <30 Sufficient 30 to 100 Reference: Korin MF,Kassi NC, Ladonna-Parrish HADDAD, et al. Evaluation,treatment, and prevention of vitamin D deficiency; an Endocrine Society clinical practice guideline. JCEM. 2010; 96(7):1911-30.PERFORMED BY:[address] [place], [place] [phone] MEDICAL DIRECTORDAMIÁN BONNER M.D. Performed By: #### T SH3 wRFLX, [id number], LIPID ####[facility] [place] [id number] [facility] Vitamin D+Metabolites [Mass/ volume] in Serum or PlasmaOrdered By: Jose Carlos Lindquist on 04-01-2024 Vitamin D+Metabolites [Mass/Vol] 30.8 ng/mL 30-100 [facility] Alanine aminotransferase [En zymatic activity/volume] in Serum or PlasmaOrdered By: Eneida Ratliff on 03-31-2024 ALT [Catalytic activity/Vol] 56 U/L High 7-52 [facility] Comment on above: Performed By: #### C BC, ETOH, CMP ####[place] [address] [place] [id number] [facility] Albumin [Mass/volume] in Ser um or Plasma by Bromocresol green (BCG) dye binding methoOrdered By: Eneida Ratliff on 03-31-2024 Albumin BCG dye [Mass/Vol] 3.6 g/dL 3.5-5.7 [facility] Alkaline phosphatase [Enzyma tic activity/volume] in Serum or PlasmaOrdered By: Eneida Ratliff on 03-31-2024 ALP [Catalytic activity/Vol] 93 U/L Normal 34-104 [facility] Comment on above: Performed By: #### C BC, ETOH, CMP ####[place] [address] [place] [id number] [facility] Amphetamine Screen Ql (U)Ord ered By: Eneida Ratliff on 03-31-2024 Amphetamines Ql (U) Negative Negative [facility] Aspartate aminotransferase [ Enzymatic activity/volume] in Serum or PlasmaOrdered By: Eneida Ratliff on 03-31-2024 AST [Catalytic activity/Vol] 38 U/L Normal 13-39 [facility] Comment on above: Performed By: #### C BC, ETOH, CMP ####[place] [id number] [facility] Automated basophil %Ordered By: Eneida Ratliff on 03-31-2024 Basophils/100 WBC (Bld) 0.7 % Normal . [facility] Comment on above: Performed By: #### C BC, ETOH, CMP ####[place] [address] Automated basophil countOrde red By: Eneida Ratliff on 03-31-2024 Basophils (Bld) [#/Vol] 0.0 10*3/uL Normal 0.0-0.2 [facility] Comment on above: Result Comment: PERF ORMED BY:[address] [place], [place] [phone] MEDICAL DIRECTORDAMIÁN BONNER M.D. Performed By: #### C BC, ETOH, CMP ####[address] Automated blood monocyte cou ntOrdered By: Eneida Ratliff on 03-31-2024 Monocytes (Bld) [#/Vol] 0.6 10*3/uL Normal 0.0-0.8 [facility] Comment on above: Performed By: #### C BC, ETOH, CMP ####[address] Automated eosinophil %Ordere d By: Eneida Ratliff on 03-31-2024 Eosinophils/100 WBC (Bld) 2.8 % Normal . [facility] Comment on above: Performed By: #### C BC, ETOH, CMP ####[address] Automated eosinophil countOr dered By: Eneida Ratliff on 03-31-2024 Eosinophils (Bld) [#/Vol] 0.2 10*3/uL Normal 0.0-0.45 [facility] Comment on above: Performed By: #### C BC, ETOH, CMP ####[address] Automated monocyte %Ordered By: Eneida Ratliff on 03-31-2024 Monocytes/100 WBC (Bld) 10.0 % Normal . [facility] Comment on above: Performed By: #### C BC, ETOH, CMP ####[address] Automated neutrophil %Ordere d By: Eneida Ratliff on 03-31-2024 Neutrophils/100 WBC (Bld) 67.8 % Normal . [facility] Comment on above: Performed By: #### C BC, ETOH, CMP ####[place] [address] [place] [id number] [facility] Barbiturates [Presence] in U rine by Screen methodOrdered By: Eneida Ratliff on 03-31-2024 Barbiturates Screen Ql (U) Positive High Negative [facility] Benzodiazepines Screen Ql (U )Ordered By: Eneida Ratliff on 03-31-2024 Benzodiazepines Ql (U) Negative Negative [facility] Benzoylecgonine [Presence] i n Urine by Screen methodOrdered By: Eneida Ratliff on 03-31-2024 Benzoylecgonine Screen Ql (U) Negative Negative [facility] Bilirubin Test strip Ql (U)O rdered By: Eneida Ratliff on 03-31-2024 Bilirubin Ql (U) Negative Negative [facility] Bilirubin.total [Mass/volume ] in Serum or PlasmaOrdered By: Eneida Ratliff on 03-31-2024 Bilirubin [Mass/Vol] 0.3 mg/dL Normal 0.3-1.0 [facility] Comment on above: Performed By: #### C BC, ETOH, CMP ####[place] [id number] [facility] Calcium [Mass/volume] in Ser um or PlasmaOrdered By: Eneida Ratliff on 03-31-2024 Calcium [Mass/Vol] 8.1 mg/dL Low 8.6-10.3 [facility] Comment on above: Performed By: #### C BC, ETOH, CMP ####[place] [address] [place] [id number] [facility] Cannabinoids [Presence] in U rine by Screen methodOrdered By: Eneida Ratliff on 03-31-2024 Cannabinoids Screen Ql (U) Negative Negative [facility] Carbon dioxide, total [Moles /volume] in Serum or PlasmaOrdered By: Eneida Ratliff on 03-31-2024 CO2 [Moles/Vol] 25.5 mmol/L Normal 21.0-31.0 [facility] Comment on above: Performed By: #### C BC, ETOH, CMP ####[address] [address] [facility] Chloride [Moles/volume] in S lian or PlasmaOrdered By: Eneida Ratliff on 03-31-2024 Chloride [Moles/Vol] 102 mmol/L Normal 98-107 [facility] Comment on above: Performed By: #### C BC, ETOH, CMP ####[place] [id number] [facility] Color of Urine by AutoOrdere d By: Eneida Ratliff on 03-31-2024 Color (U) Light-yellow Normal Yellow [facility] Comment on above: Order Comment: Name Collection Type:: Clean-Voided Midstream Performed By: #### U A, URDS ####[place] [id number] [facility] Complete Blood Count Auto Di ffon 03-31-2024 Mean Corpuscular HGB Conc 33.5 g/dL Normal 32.5-35.6 [facility] Comment on above: Performed By: #### C BC, ETOH, CMP ####[place] [id number] [facility] Monocytes/100 WBC (Bld) 19.99 % Normal 0.00-20.00 [facility] Comment on above: Performed By: #### C BC, ETOH, CMP ####[address] [address] [facility] NRBC% 0.1 /100{WBC} Normal 0-0.5 [facility] Comment on above: Performed By: #### C BC, ETOH, CMP ####[address] [address] [facility] Comprehensive Metabolic Pane kamari 03-31-2024 Albumin [Mass/Vol] 3.6 g/dL Normal 3.5-5.7 [facility] Comment on above: Performed By: #### C BC, ETOH, CMP ####[address] [address] [place] Creatinine Clr Calc Pharmacy 95.83 Normal [facility] Comment on above: Result Comment: PERF ORMED BY:[address] [place] [place], [place] [phone] MEDICAL DIRECTORDAMIÁN BONNER M.D. Performed By: #### C BC, ETOH, CMP ####[address] GFR/1.73 sq M.predicted MDRD (S/P/Bld) [Vol rate/Area] mL/min/{1.73_m2} Normal [facility] Comment on above: Performed By: #### C BC, ETOH, CMP ####[address] Creatinine [Mass/volume] in Serum or PlasmaOrdered By: Eneida Ratliff on 03-31-2024 Creatinine [Mass/Vol] 1.06 mg/dL Normal 0.70-1.30 [facility] Comment on above: Performed By: #### C BC, ETOH, CMP ####[address] Drug Screen,Urineon 03-31-20 24 Amphetamine Screen,Urine Negative Normal Negative [facility] Comment on above: Performed By: #### U A, URDS ####[address] Barbiturate Screen,Urine Positive High Negative [facility] Comment on above: Performed By: #### U A, URDS ####[address] Benzodiazepines Screen,Urine Negative Normal Negative [facility] Comment on above: Performed By: #### U A, URDS ####[address] Cannabinoid Screen,Urine Negative Normal Negative [facility] Comment on above: Result Comment: Thes e are unconfirmed results and should not be used for legal purposes. Drug Cut-Off Concentration: AMPH 1000 ng/mL TYREE 200 ng/mL DREA 200 ng/mL COCM 300 ng/mL OP 300 ng/mL PCP 25 ng/mL THC 20 ng/mLPERFORMED BY:[address] [address] [address] [place], [place] [phone] MEDICAL DIRECTORDAMIÁN BONNER M.D. Performed By: #### U A, URDS ####[address] Cocaine Screen,Urine Negative Normal Negative [facility] Comment on above: Performed By: #### U A, URDS ####[place] [id number] [facility] Opiate Screen,Urine Negative Normal Negative [facility] Comment on above: Performed By: #### U A, URDS ####[address] Phencyclidine Screen,Urine Negative Normal Negative [facility] Comment on above: Performed By: #### U A, URDS ####[address] Erythrocyte distribution wid th [Ratio] by Automated countOrdered By: Eneida Ratliff on 03-31-2024 Erythrocyte distribution width (RBC) [Ratio] 13.8 % Normal 12.0-14.8 [facility] Comment on above: Performed By: #### C BC, ETOH, CMP ####[address] Erythrocytes [#/volume] in B lood by Automated countOrdered By: Eneida Ratliff on 03-31-2024 RBC (Bld) [#/Vol] 5.20 10*6/uL Normal 3.90-5.60 [facility] Comment on above: Performed By: #### C BC, ETOH, CMP ####[place] [id number] [facility] Ethanol [Mass/volume] in Ser um or PlasmaOrdered By: Eneida Ratliff on 03-31-2024 Ethanol [Mass/Vol] mg/dL Normal [facility] Comment on above: Performed By: #### C BC, ETOH, CMP ####[place] [id number] [facility] Ethanol [Mass/Vol] TNP [facility] Ethyl Alcohol Profileon 08 Percent Ethanol Not performed Normal [facility] Comment on above: Result Comment: PERF ORMED BY:[address] [place] [address] [place] [place], [place] [phone] MEDICAL DIRECTORDAMIÁN BONNER M.D. Performed By: #### C BC, ETOH, CMP ####[place] [address] [place] [address] [facility] Glucose Poct Glucometerson 0 03-31-2024 Commemt1 Glu2: Cleaned Meter Normal [facility] Comment on above: Result Comment: PERF ORMED BY:[place] [address] [place], [place] [phone] MEDICAL DIRECTORDAMIÁN BONNER M.D. Performed By: #### G LULS ####Point of Care testing, Glucose [Mass/Vol] 274 mg/dL Normal [facility] Comment on above: Result Comment: [place] Glucose Reference Range is dependent on time and content of last meal. Glucose of more than 200 mg/dL in a nonstressed, ambulatory subject supports the diagnosis of Diabetes Mellitus. Performed By: #### G LULS ####Point of Care testing, Glucose [Mass/volume] in Ser um or PlasmaOrdered By: Eneida Ratliff on 03-31-2024 Glucose [Mass/Vol] 193 mg/dL High 70-100 [facility] Comment on above: Result Comment: [place] Glucose Reference Range is dependent on time and content of last meal. Glucose of more than 200 mg/dL in a nonstressed, ambulatory subject supports the diagnosis of Diabetes Mellitus. ADA recommended reference range Performed By: #### C BC, ETOH, CMP ####[place] [address] [place] [address] [facility] Glucose [Mass/volume] in Uri ne by Test stripOrdered By: Eneida Ratliff on 03-31-2024 Glucose Test strip (U) [Mass/Vol] >=1000 mg/dL High Normal [facility] Hematocrit [Volume Fraction] of Blood by Automated countOrdered By: Eneida Ratliff on 03-31-2024 Hematocrit (Bld) [Volume fraction] 43.6 % Normal 38.8-50.0 [facility] Comment on above: Performed By: #### C BC, ETOH, CMP ####[place] [id number] [facility] Hemoglobin Test strip Ql (U) Ordered By: Eneida Ratliff on 03-31-2024 Hemoglobin Ql (U) Negative Negative [facility] Hemoglobin [Mass/volume] in BloodOrdered By: Eneida Ratliff on 03-31-2024 Hemoglobin (Bld) [Mass/Vol] 14.6 g/dL Normal 13.0-17.0 [facility] Comment on above: Performed By: #### C BC, ETOH, CMP ####[place] [id number] [facility] Ketones [Presence] in Urine by Test stripOrdered By: Eneida Ratliff on 03-31-2024 Ketones Ql (U) Negative Normal Negative [facility] Comment on above: Order Comment: Name Collection Type:: Clean-Voided Midstream Performed By: #### U A, URDS ####[place] [id number] [facility] Leukocyte esterase [Presence ] in Urine by Test stripOrdered By: Eneida Ratliff on 03-31-2024 Leukocyte esterase Test strip Ql (U) Negative Normal Negative [facility] Comment on above: Order Comment: Name Collection Type:: Clean-Voided Midstream Performed By: #### U A, URDS ####[place] [id number] [facility] Leukocytes [#/volume] correc darnell for nucleated erythrocytes in Blood by Automated counOrdered By: Eneida Ratliff on 03-31-2024 WBC corrected for nucl RBC Auto (Bld) [#/Vol] 6.4 10*3/uL 4.1-10.5 [facility] Leukocytes [#/volume] in Blo od by Automated countOrdered By: Eneida Ratliff on 03-31-2024 WBC (Bld) [#/Vol] 6.4 10*3/uL Normal 4.1-10.5 [facility] Comment on above: Performed By: #### C BC, ETOH, CMP ####[address] Lymphocytes [#/volume] in Bl ood by Automated countOrdered By: Eneida Ratliff on 03-31-2024 Lymphocytes (Bld) [#/Vol] 1.2 10*3/uL Normal 1.00-4.8 [facility] Comment on above: Performed By: #### C BC, ETOH, CMP ####[address] Lymphocytes/100 leukocytes i n Blood by Automated countOrdered By: Eneida Ratliff on 03-31-2024 Lymphocytes/100 WBC (Bld) 18.7 % Normal . [facility] Comment on above: Performed By: #### C BC, ETOH, CMP ####[address] MCH [Entitic mass] by Automa darnell countOrdered By: Eneida Ratliff on 03-31-2024 MCH (RBC) [Entitic mass] 28.1 pg Normal 27.5-35.2 [facility] Comment on above: Performed By: #### C BC, ETOH, CMP ####[address] MCHC Auto (RBC) [Mass/Vol]Or dered By: Eneida Ratliff on 03-31-2024 MCHC (RBC) [Mass/Vol] 33.5 g/dL 32.5-35.6 [facility] MCV [Entitic volume] by Auto mated countOrdered By: Eneida Ratliff on 03-31-2024 MCV (RBC) [Entitic vol] 83.8 fL Normal 83.5-101 [facility] Comment on above: Performed By: #### C BC, ETOH, CMP ####[address] Monocyte distribution width [Entitic volume] in Blood by AutomatedOrdered By: Eneida Ratliff on 03-31-2024 Monocyte distribution width Auto (Bld) [Entitic vol] 19.99 % 0.00-20.00 [facility] Neutrophils [#/volume] in Bl ood by Automated countOrdered By: Eneida Ratliff on 03-31-2024 Neutrophils (Bld) [#/Vol] 4.3 10*3/uL Normal 1.8-7.7 [facility] Comment on above: Performed By: #### C BC, ETOH, CMP ####[facility] [place] [id number] [facility] Nitrite Test strip Ql (U)Ord ered By: Eneida Ratliff on 03-31-2024 Nitrite Ql (U) Negative Negative [facility] No Panel InformationOrdered By: Eneida Ratliff on 03-31-2024 > 60.0 mL/Min [facility] 95.83 [facility] Nucleated erythrocytes [Pres ence] in Blood by Automated countOrdered By: Eneida Ratliff on 03-31-2024 Nucleated RBC Auto Ql (Bld) 0.1 /100{WBC} 0-0.5 [facility] Opiates [Presence] in Urine by Screen methodOrdered By: Eneida Ratliff on 03-31-2024 Opiates Screen Ql (U) Negative Negative [facility] Phencyclidine Screen Ql (U)O rdered By: Eneida Ratliff on 03-31-2024 Phencyclidine Ql (U) Negative Negative [facility] Platelet mean volume [Entiti c volume] in Blood by Automated countOrdered By: Eneida Ratliff on 03-31-2024 Platelet mean volume (Bld) [Entitic vol] 9.3 fL Normal 6.6-10.1 [facility] Comment on above: Performed By: #### C BC, ETOH, CMP ####[facility] [place] [id number] [facility] Platelets [#/volume] in Bloo d by Automated countOrdered By: Eneida Ratliff on 03-31-2024 Platelets (Bld) [#/Vol] 173 10*3/uL Normal 150-450 [facility] Comment on above: Performed By: #### C BC, ETOH, CMP ####[facility] [place] [address] [facility] Potassium [Moles/volume] in Serum or PlasmaOrdered By: Eneida Ratliff on 03-31-2024 Potassium [Moles/Vol] 4.1 mmol/L Normal 3.5-5.1 [facility] Comment on above: Performed By: #### C BC, ETOH, CMP ####[place] [id number] Protein Test strip (U) [Mass /Vol]Ordered By: Eneida Ratliff on 03-31-2024 Protein (U) [Mass/Vol] Negative Negative [facility] Protein [Mass/volume] in Ser um or PlasmaOrdered By: Eneida Ratliff on 03-31-2024 Protein [Mass/Vol] 6.0 g/dL Low 6.4-8.9 [facility] Comment on above: Performed By: #### C BC, ETOH, CMP ####[address] Serum globulin measurement b y calculation (mass/volume)Ordered By: Eneida Ratliff on 03-31-2024 Globulin (S) [Mass/Vol] 2.4 g/dL Normal [facility] Comment on above: Performed By: #### C BC, ETOH, CMP ####[address] Serum or plasma albumin/glob ulin mass ratioOrdered By: Eneida Ratliff on 03-31-2024 Albumin/Globulin [Mass ratio] 1.5 {ratio} Normal [facility] Comment on above: Performed By: #### C BC, ETOH, CMP ####[address] Serum or plasma anion gap de terminationOrdered By: Eneida Ratliff on 03-31-2024 Anion gap [Moles/Vol] 13.6 mmol/L Normal 6.0-15.0 [facility] Comment on above: Performed By: #### C BC, ETOH, CMP ####[address] Sodium [Moles/volume] in Ser um or PlasmaOrdered By: Eneida Ratliff on 03-31-2024 Sodium [Moles/Vol] 137 mmol/L Normal 136-145 [facility] Comment on above: Performed By: #### C BC, ETOH, CMP ####[address] [address] [facility] Specific gravity Test strip (U) [Rel density]Ordered By: Eneida Ratliff on 03-31-2024 Specific gravity (U) [Rel density] 1.019 1.001-1.03 0 [facility] Urea nitrogen [Mass/volume] in Serum or PlasmaOrdered By: Eneida Ratliff on 03-31-2024 Urea nitrogen [Mass/Vol] 13 mg/dL Normal 7-25 [facility] Comment on above: Performed By: #### C BC, ETOH, CMP ####[address] [address] [facility] Urinalysison 03-31-2024 Bilirubin,Urine Negative Normal Negative [facility] Comment on above: Order Comment: Name Collection Type:: Clean-Voided Midstream Performed By: #### U A, URDS ####[place] [id number] [facility] Glucose Ql (U) >=1000 High Normal [facility] Comment on above: Order Comment: Name Collection Type:: Clean-Voided Midstream Performed By: #### U A, URDS ####[address] [address] [facility] Nitrite,Urine Negative Normal Negative [facility] Comment on above: Order Comment: Name Collection Type:: Clean-Voided Midstream Performed By: #### U A, URDS ####[address] [address] [facility] Occult Blood,Urine Negative Normal Negative [facility] Comment on above: Order Comment: Name Collection Type:: Clean-Voided Midstream Result Comment: PERF ORMED BY:[address] VÁZQUEZRO[place], [place] [phone] MEDICAL DIRECTORDAMIÁN BONNER M.D. Performed By: #### U A, URDS ####[address] [address] [facility] Protein,Urine Negative Normal Negative [facility] Comment on above: Order Comment: Name Collection Type:: Clean-Voided Midstream Performed By: #### U A, URDS ####[place] [id number] [facility] Specificy [place],Urine 1.019 Normal 1.00 1-1.03 0 [facility] Comment on above: Order Comment: Name Collection Type:: Clean-Voided Midstream Performed By: #### U A, URDS ####[place] [id number] [facility] Urobilinogen,Urine Normal Normal Normal [facility] Comment on above: Order Comment: Name Collection Type:: Clean-Voided Midstream Performed By: #### U A, URDS ####[place] [id number] [facility] Urine appearanceOrdered By: Eneida Ratliff on 03-31-2024 Appearance (U) Clear Normal Clear [facility] Comment on above: Order Comment: Name Collection Type:: Clean-Voided Midstream Performed By: #### U A, URDS ####[place] [id number] [facility] Urobilinogen Test strip (U) [Mass/Vol]Ordered By: Eneida Ratliff on 03-31-2024 Urobilinogen (U) [Mass/Vol] Normal mg/dL Normal [facility] XR knee RT 4V*on 03-31-2024 XR knee RT 4V* Normal [facility] pH of Urine by Test stripOrd ered By: Eneida Ratliff on 03-31-2024 pH (U) 5.0 [pH] Normal 5.0-9.0 [facility] Comment on above: Order Comment: Name Collection Type:: Clean-Voided Midstream Performed By: #### U A, URDS ####[place] [id number] [facility] Capillary blood glucose marc urement by glucometer (mass/volume)Ordered By: Rory Corley on 03-29-2024 Glucose [Mass/Vol] 305 mg/dL Normal [facility] Comment on above: Result Comment: [place] om Glucose Reference Range is dependent on time and content of last meal. Glucose of more than 200 mg/dL in a nonstressed, ambulatory subject supports the diagnosis of Diabetes Mellitus.PERFORMED BY:[address] [place], [place] [phone] MEDICAL NOLBERTO BONNER M.D. Performed By: #### G LULS ####Point of Care testing, Glucose Poct Glucometerson 0 03-29-2024 Glucose [Mass/Vol] 198 mg/dL Normal [facility] Comment on above: Result Comment: [place] om Glucose Reference Range is dependent on time and content of last meal. Glucose of more than 200 mg/dL in a nonstressed, ambulatory subject supports the diagnosis of Diabetes Mellitus.PERFORMED BY:[address] [place], [place] [phone] MEDICAL NOLBERTO BONNER M.D. Performed By: #### G LULS ####Point of Care testing, Glucose [Mass/Vol] 175 mg/dL Normal [facility] Comment on above: Result Comment: [facility] Glucose Reference Range is dependent on time and content of last meal. Glucose of more than 200 mg/dL in a nonstressed, ambulatory subject supports the diagnosis of Diabetes Mellitus.PERFORMED BY:[address] VASQUEZAnjuBREANA, [place] [phone] MEDICAL NOLBERTO BONNER M.D. Performed By: #### G LULS ####Point of Care testing, Glucose [Mass/Vol] 233 mg/dL Normal [facility] Comment on above: Result Comment: [facility] Glucose Reference Range is dependent on time and content of last meal. Glucose of more than 200 mg/dL in a nonstressed, ambulatory subject supports the diagnosis of Diabetes Mellitus.PERFORMED BY:[address] [place], [place] [phone] AUGUSTA BONNER M.D. Performed By: #### G LULS ####Point of Care testing, MR head/brain wo conon 08-05 -2024 MR head/brain wo con Normal [facility] Automated basophil %Ordered By: Carolina Soriano on 03-28-2024 Basophils/100 WBC (Bld) 0.5 % Normal . [facility] Comment on above: Performed By: #### B MP, CBC ####[place] [id number] [facility] Automated basophil countOrde red By: Carolina Soriano on 03-28-2024 Basophils (Bld) [#/Vol] 0.0 10*3/uL Normal 0.0-0.2 [facility] Comment on above: Result Comment: PERF ORMED BY:[address] [place], [place] [phone] MEDICAL DIRECTORDAMIÁN BONNER M.D. Performed By: #### B MP, CBC ####[place] [id number] [facility] Automated blood monocyte cou ntOrdered By: Carolina Soriano on 03-28-2024 Monocytes (Bld) [#/Vol] 0.5 10*3/uL Normal 0.0-0.8 [facility] Comment on above: Performed By: #### B MP, CBC ####[address] Automated eosinophil %Ordere d By: Carolina Soriano on 03-28-2024 Eosinophils/100 WBC (Bld) 4.3 % Normal . [facility] Comment on above: Performed By: #### B MP, CBC ####[place] [id number] [facility] Automated eosinophil countOr dered By: Carolina Soriano on 03-28-2024 Eosinophils (Bld) [#/Vol] 0.2 10*3/uL Normal 0.0-0.45 [facility] Comment on above: Performed By: #### B MP, CBC ####[place] [id number] [facility] Automated monocyte %Ordered By: Carolina Soriano on 03-28-2024 Monocytes/100 WBC (Bld) 9.7 % Normal . [facility] Comment on above: Performed By: #### B MP, CBC ####[address] [address] [facility] Automated neutrophil %Ordere d By: Carolina Soriano on 03-28-2024 Neutrophils/100 WBC (Bld) 57.6 % Normal . [facility] Comment on above: Performed By: #### B MP, CBC ####[address] [address] [facility] Basic Metabolic Panelon Creatinine Clr Calc Pharmacy 119.80 Normal [facility] Comment on above: Result Comment: PERF ORMED BY:[address] [place]lAnju[place], [place] [phone] MEDICAL DIRECTORDAMIÁN BONNER M.D. Performed By: #### B MP, CBC ####[address] [address] [facility] GFR/1.73 sq M.predicted MDRD (S/P/Bld) [Vol rate/Area] mL/min/{1.73_m2} Normal [facility] Comment on above: Performed By: #### B MP, CBC ####[address] [address] [facility] Calcium [Mass/volume] in Ser um or PlasmaOrdered By: Carolina Soriano on 03-28-2024 Calcium [Mass/Vol] 8.6 mg/dL Normal 8.6-10.3 [facility] Comment on above: Performed By: #### B MP, CBC ####[address] [address] [facility] Carbon dioxide, total [Moles /volume] in Serum or PlasmaOrdered By: Carolina Soriano on 03-28-2024 CO2 [Moles/Vol] 30.9 mmol/L Normal 21.0-31.0 [facility] Comment on above: Performed By: #### B MP, CBC ####[address] Chloride [Moles/volume] in S lian or PlasmaOrdered By: Carolina Soriano on 03-28-2024 Chloride [Moles/Vol] 99 mmol/L Normal 98-107 [facility] Comment on above: Performed By: #### B MP, CBC ####[address] Complete Blood Count Auto Di ffon 03-28-2024 Mean Corpuscular HGB Conc 33.9 g/dL Normal 32.5-35.6 [facility] Comment on above: Performed By: #### B MP, CBC ####[address] NRBC% 0.3 /100{WBC} Normal 0-0.5 [facility] Comment on above: Performed By: #### B MP, CBC ####[address] Creatinine [Mass/volume] in Serum or PlasmaOrdered By: Carolina Soriano on 03-28-2024 Creatinine [Mass/Vol] 0.83 mg/dL Normal 0.70-1.30 [facility] Comment on above: Performed By: #### B MP, CBC ####[address] Erythrocyte distribution wid th [Ratio] by Automated countOrdered By: Carolina Soriano on 03-28-2024 Erythrocyte distribution width (RBC) [Ratio] 14.2 % Normal 12.0-14.8 [facility] Comment on above: Performed By: #### B MP, CBC ####[address] Erythrocytes [#/volume] in B lood by Automated countOrdered By: Carolina Salinas on 03-28-2024 RBC (Bld) [#/Vol] 5.14 10*6/uL Normal 3.90-5.60 [facility] Comment on above: Performed By: #### B MP, CBC ####[facility] [place] [address] [facility] Glucose Poct Glucometerson 0 03-28-2024 Glucose [Mass/Vol] 306 mg/dL Normal [facility] Comment on above: Result Comment: [facility] Glucose Reference Range is dependent on time and content of last meal. Glucose of more than 200 mg/dL in a nonstressed, ambulatory subject supports the diagnosis of Diabetes Mellitus.PERFORMED BY:[address] [place], [place] [phone] MEDICAL DIRECTORDAMIÁN BONNER M.D. Performed By: #### G LULS ####Point of Care testing, Glucose [Mass/Vol] 249 mg/dL Normal [facility] Comment on above: Result Comment: [facility] Glucose Reference Range is dependent on time and content of last meal. Glucose of more than 200 mg/dL in a nonstressed, ambulatory subject supports the diagnosis of Diabetes Mellitus.PERFORMED BY:[address] [place], [place] [phone] MEDICAL NOLBERTO BONNER M.D. Performed By: #### G LULS ####Point of Care testing, Glucose [Mass/Vol] 213 mg/dL Normal [facility] Comment on above: Result Comment: [facility] Glucose Reference Range is dependent on time and content of last meal. Glucose of more than 200 mg/dL in a nonstressed, ambulatory subject supports the diagnosis of Diabetes Mellitus.PERFORMED BY:[address] [place], [place] [phone] MEDICAL NOLBERTO BONNER M.D. Performed By: #### G LULS ####Point of Care testing, Glucose [Mass/Vol] 89 mg/dL Normal [facility] Comment on above: Result Comment: [facility] Glucose Reference Range is dependent on time and content of last meal. Glucose of more than 200 mg/dL in a nonstressed, ambulatory subject supports the diagnosis of Diabetes Mellitus.PERFORMED BY:[address] [place], [place] [phone] MEDICAL DIRECTORDAMIÁN BONNER M.D. Performed By: #### G LULS ####Point of Care testing, Glucose [Mass/Vol] 207 mg/dL Normal [facility] Comment on above: Result Comment: [place] Glucose Reference Range is dependent on time and content of last meal. Glucose of more than 200 mg/dL in a nonstressed, ambulatory subject supports the diagnosis of Diabetes Mellitus.PERFORMED BY:[address] [place], [place] [phone] MEDICAL DIRECTORDAMIÁN BONNER M.D. Performed By: #### G LUJEAN MARIE ####Point of Care testing, Glucose [Mass/volume] in Ser um or PlasmaOrdered By: Carolina Soriano on 03-28-2024 Glucose [Mass/Vol] 115 mg/dL Significant change up 70-100 [facility] Comment on above: Result Comment: [facility] Glucose Reference Range is dependent on time and content of last meal. Glucose of more than 200 mg/dL in a nonstressed, ambulatory subject supports the diagnosis of Diabetes Mellitus. ADA recommended reference range Performed By: #### B MP, CBC ####[address] [address] [facility] Hematocrit [Volume Fraction] of Blood by Automated countOrdered By: Carolina Soriano on 03-28-2024 Hematocrit (Bld) [Volume fraction] 42.3 % Normal 38.8-50.0 [facility] Comment on above: Performed By: #### B MP, CBC ####[address] [address] [facility] Hemoglobin [Mass/volume] in BloodOrdered By: Carolina Soriano on 03-28-2024 Hemoglobin (Bld) [Mass/Vol] 14.3 g/dL Normal 13.0-17.0 [facility] Comment on above: Performed By: #### B MP, CBC ####[address] [address] [place] Leukocytes [#/volume] correc darnell for nucleated erythrocytes in Blood by Automated counOrdered By: Carolina Soriano on 03-28-2024 WBC corrected for nucl RBC Auto (Bld) [#/Vol] 5.4 10*3/uL 4.1-10.5 [facility] Leukocytes [#/volume] in Blo od by Automated countOrdered By: Carolina Salinas on 03-28-2024 WBC (Bld) [#/Vol] 5.4 10*3/uL Normal 4.1-10.5 [facility] Comment on above: Performed By: #### B MP, CBC ####[place] [id number] [place] [id number] [facility] Lymphocytes [#/volume] in Bl ood by Automated countOrdered By: Carolina Salinas on 03-28-2024 Lymphocytes (Bld) [#/Vol] 1.5 10*3/uL Normal 1.00-4.8 [facility] Comment on above: Performed By: #### B MP, CBC ####[place] [id number] [facility] Lymphocytes/100 leukocytes i n Blood by Automated countOrdered By: Carolina Soriano on 03-28-2024 Lymphocytes/100 WBC (Bld) 27.9 % Normal . [facility] Comment on above: Performed By: #### B MP, CBC ####[place] [id number] [facility] MCH [Entitic mass] by Automa darnell countOrdered By: Carolina Soriano on 03-28-2024 MCH (RBC) [Entitic mass] 27.9 pg Normal 27.5-35.2 [facility] Comment on above: Performed By: #### B MP, CBC ####[place] [id number] [facility] MCHC Auto (RBC) [Mass/Vol]Or dered By: Carolina Soriano on 03-28-2024 MCHC (RBC) [Mass/Vol] 33.9 g/dL 32.5-35.6 [facility] MCV [Entitic volume] by Auto mated countOrdered By: Carolina Soriano on 08-04-2024 MCV (RBC) [Entitic vol] 82.3 fL Low 83.5-101 [facility] Comment on above: Performed By: #### B MP, CBC ####[address] Neutrophils [#/volume] in Bl ood by Automated countOrdered By: Carolina Salinas on 03-28-2024 Neutrophils (Bld) [#/Vol] 3.1 10*3/uL Normal 1.8-7.7 [facility] Comment on above: Performed By: #### B MP, CBC ####[address] No Panel InformationOrdered By: Carolina Soriano on 03-28-2024 > 60.0 mL/Min [facility] 119.80 [facility] Nucleated erythrocytes [Pres ence] in Blood by Automated countOrdered By: Carolina Soriano on 03-28-2024 Nucleated RBC Auto Ql (Bld) 0.3 /100{WBC} 0-0.5 [facility] Platelet mean volume [Entiti c volume] in Blood by Automated countOrdered By: Carolina Soriano on 03-28-2024 Platelet mean volume (Bld) [Entitic vol] 9.1 fL Normal 6.6-10.1 [facility] Comment on above: Performed By: #### B MP, CBC ####[address] Platelets [#/volume] in Bloo d by Automated countOrdered By: Carolina Soriano on 03-28-2024 Platelets (Bld) [#/Vol] 172 10*3/uL Normal 150-450 [facility] Comment on above: Performed By: #### B MP, CBC ####[address] Potassium [Moles/volume] in Serum or PlasmaOrdered By: Carolina Soriano on 03-28-2024 Potassium [Moles/Vol] 3.8 mmol/L Normal 3.5-5.1 [facility] Comment on above: Performed By: #### B MP, CBC ####[place] [id number] [facility] Serum or plasma anion gap de terminationOrdered By: Carolina Soriano on 03-28-2024 Anion gap [Moles/Vol] 14.9 mmol/L Normal 6.0-15.0 [facility] Comment on above: Performed By: #### B MP, CBC ####[place] [id number] [facility] Sodium [Moles/volume] in Ser um or PlasmaOrdered By: Carolina Soriano on 03-28-2024 Sodium [Moles/Vol] 141 mmol/L Significant change down 136-145 [facility] Comment on above: Performed By: #### B MP, CBC ####[place] [id number] [facility] Urea nitrogen [Mass/volume] in Serum or PlasmaOrdered By: Carolina Soriano on 03-28-2024 Urea nitrogen [Mass/Vol] 16 mg/dL Normal 7-25 [facility] Comment on above: Performed By: #### B MP, CBC ####[place] [id number] [facility] Activated partial thrombopla stin time (aPTT) in platelet poor plasma by coagulation aOrdered By: Carolina Soriano on 03-27-2024 aPTT Coag (PPP) [Time] 32.8 s 25.1-36.5 [facility] Alanine aminotransferase [En zymatic activity/volume] in Serum or PlasmaOrdered By: Carolina Soriano on 03-27-2024 ALT [Catalytic activity/Vol] 41 U/L Normal 7-52 [facility] Comment on above: Performed By: #### P RL, PP, CBC, CMP ####[place] [id number] [place] Albumin [Mass/volume] in Ser um or Plasma by Bromocresol green (BCG) dye binding methoOrdered By: Carolina Soriano on 03-27-2024 Albumin BCG dye [Mass/Vol] 3.9 g/dL 3.5-5.7 [facility] Alkaline phosphatase [Enzyma tic activity/volume] in Serum or PlasmaOrdered By: Carolina AlejandreBerna on 03-27-2024 ALP [Catalytic activity/Vol] 75 U/L Normal 34-104 [facility] Comment on above: Performed By: #### P RL, PP, CBC, CMP ####[address] Aspartate aminotransferase [ Enzymatic activity/volume] in Serum or PlasmaOrdered By: Carolina Soriano on 03-27-2024 AST [Catalytic activity/Vol] 27 U/L Normal 13-39 [facility] Comment on above: Performed By: #### P RL, PP, CBC, CMP ####[address] Automated basophil %Ordered By: Carolina Soriano on 03-27-2024 Basophils/100 WBC (Bld) 0.7 % Normal . [facility] Comment on above: Performed By: #### P RL, PP, CBC, CMP ####[address] Automated basophil countOrde red By: Carolina Soriano on 03-27-2024 Basophils (Bld) [#/Vol] 0.0 10*3/uL Normal 0.0-0.2 [facility] Comment on above: Result Comment: PERF ORMED BY:[address] [place], [place] [phone] MEDICAL DIRECTORDAMIÁN BONNER M.D. Performed By: #### P RL, PP, CBC, CMP ####[place] [id number] [facility] Automated blood monocyte cou ntOrdered By: Carolina Soriano on 03-27-2024 Monocytes (Bld) [#/Vol] 0.7 10*3/uL Normal 0.0-0.8 [facility] Comment on above: Performed By: #### P RL, PP, CBC, CMP ####[address] Automated eosinophil %Ordere d By: Carolinakamlesh Soriano on 03-27-2024 Eosinophils/100 WBC (Bld) 3.7 % Normal . [facility] Comment on above: Performed By: #### P RL, PP, CBC, CMP ####[address] Automated eosinophil countOr dered By: Carolina Soriano on 03-27-2024 Eosinophils (Bld) [#/Vol] 0.2 10*3/uL Normal 0.0-0.45 [facility] Comment on above: Performed By: #### P RL, PP, CBC, CMP ####[address] Automated monocyte %Ordered By: Carolina Soriano on 03-27-2024 Monocytes/100 WBC (Bld) 11.0 % Normal . [facility] Comment on above: Performed By: #### P RL, PP, CBC, CMP ####[address] Automated neutrophil %Ordere d By: Carolina Soriano on 03-27-2024 Neutrophils/100 WBC (Bld) 61.6 % Normal . [facility] Comment on above: Performed By: #### P RL, PP, CBC, CMP ####[address] Bilirubin.total [Mass/volume ] in Serum or PlasmaOrdered By: Carolina Soriano on 03-27-2024 Bilirubin [Mass/Vol] 0.3 mg/dL Normal 0.3-1.0 [facility] Comment on above: Performed By: #### P RL, PP, CBC, CMP ####[address] angio neckon 03-27-2024 CT angio neck Normal [facility] CT head/brain wo conon 03-27 CT head/brain wo con Normal [facility] Calcium [Mass/volume] in Ser um or PlasmaOrdered By: Carolina Soriano on 03-27-2024 Calcium [Mass/Vol] 8.6 mg/dL Normal 8.6-10.3 [facility] Comment on above: Performed By: #### P RL, PP, CBC, CMP ####[place] [id number] [place] [address] [facility] Capillary blood glucose marc urement by glucometer (mass/volume)Ordered By: Nigel Rdz on 03-27-2024 Glucose [Mass/Vol] 330 mg/dL Normal [facility] Comment on above: Random Glucose Refer ence Range is dependent on time and content of last meal. Glucose of more than 200 mg/dL in a nonstressed, ambulatory subject supports the diagnosis of Diabetes Mellitus. Result Comment: [place] om Glucose Reference Range is dependent on time and content of last meal. Glucose of more than 200 mg/dL in a nonstressed, ambulatory subject supports the diagnosis of Diabetes Mellitus.PERFORMED BY:[address] [address] [place], [place] [phone] MEDICAL DIRECTORDAMIÁN BONNER M.D. Performed By: #### G HARITHA ####Point of Care testing, Carbon dioxide, total [Moles /volume] in Serum or PlasmaOrdered By: Carolina Soriano on 03-27-2024 CO2 [Moles/Vol] 26.7 mmol/L Normal 21.0-31.0 [facility] Comment on above: Performed By: #### P RL, PP, CBC, CMP ####[place] [id number] [facility] Chloride [Moles/volume] in S lian or PlasmaOrdered By: Carolina Soriano on 03-27-2024 Chloride [Moles/Vol] 95 mmol/L Low 98-107 [facility] Comment on above: Performed By: #### P RL, PP, CBC, CMP ####[place] [id number] [facility] Coagulation Profileon 2023 aPTT Coag (Bld) [Time] 32.8 s Normal 25.1-36.5 [facility] Comment on above: Result Comment: A he matocrit value greater than 55% may lead to inaccurate results in coagulation testing. Patients having hematocrit values >55% require a special collection tube for coagulation studies. Please contact the laboratory at [phone] for redraw instructions.PERFORMED BY:[address] EDILMAJlAnjuSAN [place], [place] [phone] MEDICAL DIRECTORDAMIÁN BONNER M.D. Performed By: #### P RL, PP, CBC, CMP ####[place] [id number] [facility] Complete Blood Count Auto Di ffon 03-27-2024 Mean Corpuscular HGB Conc 34.1 g/dL Normal 32.5-35.6 [facility] Comment on above: Performed By: #### P RL, PP, CBC, CMP ####[place] [id number] [facility] NRBC% 0.1 /100{WBC} Normal 0-0.5 [facility] Comment on above: Performed By: #### P RL, PP, CBC, CMP ####[place] [id number] [facility] Comprehensive Metabolic Pane kamari 03-27-2024 Albumin [Mass/Vol] 3.9 g/dL Normal 3.5-5.7 [facility] Comment on above: Performed By: #### P RL, PP, CBC, CMP ####[place] [id number] [facility] Creatinine Clr Calc Pharmacy 90.94 Normal [facility] Comment on above: Performed By: #### P RL, PP, CBC, CMP ####[place] [id number] [facility] GFR/1.73 sq M.predicted MDRD (S/P/Bld) [Vol rate/Area] mL/min/{1.73_m2} Normal [facility] Comment on above: Performed By: #### P RL, PP, CBC, CMP ####[address] [address] [facility] Creatinine [Mass/volume] in Serum or PlasmaOrdered By: Carolina Soriano on 03-27-2024 Creatinine [Mass/Vol] 1.06 mg/dL Normal 0.70-1.30 [facility] Comment on above: Performed By: #### P RL, PP, CBC, CMP ####[place] [id number] [facility] ECG 12 lead ECGon 03-27-2024 ECG 12 lead ECG Normal [facility] Erythrocyte distribution wid th [Ratio] by Automated countOrdered By: Carolina Soriano on 03-27-2024 Erythrocyte distribution width (RBC) [Ratio] 14.1 % Normal 12.0-14.8 [facility] Comment on above: Performed By: #### P RL, PP, CBC, CMP ####[place] [id number] [facility] Erythrocytes [#/volume] in B lood by Automated countOrdered By: Carolina Salinas on 03-27-2024 RBC (Bld) [#/Vol] 5.42 10*6/uL Normal 3.90-5.60 [facility] Comment on above: Performed By: #### P RL, PP, CBC, CMP ####[place] [id number] [facility] Glucose Poct Glucometerson 0 03-27-2024 Glucose [Mass/Vol] 301 mg/dL Normal [facility] Comment on above: Result Comment: [facility] Glucose Reference Range is dependent on time and content of last meal. Glucose of more than 200 mg/dL in a nonstressed, ambulatory subject supports the diagnosis of Diabetes Mellitus.PERFORMED BY:[address] [place], [place] [phone] MEDICAL NOLBERTO BONNER M.D. Performed By: #### G LULS ####Point of Care testing, Glucose [Mass/Vol] 323 mg/dL Normal [facility] Comment on above: Result Comment: [place] om Glucose Reference Range is dependent on time and content of last meal. Glucose of more than 200 mg/dL in a nonstressed, ambulatory subject supports the diagnosis of Diabetes Mellitus.PERFORMED BY:[address] [place], [place] [phone] MEDICAL DIRECTORDAMIÁN BONNER M.D. Performed By: #### G LULS ####Point of Care testing, Glucose [Mass/Vol] 326 mg/dL Normal [facility] Comment on above: Result Comment: [place] Glucose Reference Range is dependent on time and content of last meal. Glucose of more than 200 mg/dL in a nonstressed, ambulatory subject supports the diagnosis of Diabetes Mellitus.PERFORMED BY:[address] [place], [place] [phone] MEDICAL DIRECTORDAMIÁN BONNER M.D. Performed By: #### G LULS ####Point of Care testing, Glucose [Mass/Vol] 372 mg/dL Normal [facility] Comment on above: Result Comment: [place] Glucose Reference Range is dependent on time and content of last meal. Glucose of more than 200 mg/dL in a nonstressed, ambulatory subject supports the diagnosis of Diabetes Mellitus.PERFORMED BY:[address] [place], [place] [phone] MEDICAL NOLBERTO BONNER M.D. Performed By: #### G LULS ####Point of Care testing, Commemt1 Glu2: Cleaned Meter Normal [facility] Comment on above: Result Comment: PERF ORMED BY:[address] [place], [place] [phone] MEDICAL DIRECTORDAMIÁN BONNER M.D. Performed By: #### G LULS ####Point of Care testing, Glucose [Mass/Vol] 182 mg/dL Normal [facility] Comment on above: Result Comment: [place] Glucose Reference Range is dependent on time and content of last meal. Glucose of more than 200 mg/dL in a nonstressed, ambulatory subject supports the diagnosis of Diabetes Mellitus. Performed By: #### G LULS ####Point of Care testing, Commemt1 Glu2: Cleaned Meter Normal [facility] Comment on above: Result Comment: PERF ORMED BY:[address] [place], [place] [phone] MEDICAL DIRECTORDAMIÁN BONNER M.D. Performed By: #### G LULS ####Point of Care testing, Glucose [Mass/Vol] 373 mg/dL Normal [facility] Comment on above: Result Comment: [place] Glucose Reference Range is dependent on time and content of last meal. Glucose of more than 200 mg/dL in a nonstressed, ambulatory subject supports the diagnosis of Diabetes Mellitus. Performed By: #### G LULS ####Point of Care testing, Glucose [Mass/volume] in Ser um or PlasmaOrdered By: Carolina Soriano on 03-27-2024 Glucose [Mass/Vol] 341 mg/dL High 70-100 [facility] Comment on above: Result Comment: [place] Glucose Reference Range is dependent on time and content of last meal. Glucose of more than 200 mg/dL in a nonstressed, ambulatory subject supports the diagnosis of Diabetes Mellitus. ADA recommended reference range Performed By: #### P RL, PP, CBC, CMP ####[id number] [place] [id number] [facility] Hematocrit [Volume Fraction] of Blood by Automated countOrdered By: Carolina Soriano on 03-27-2024 Hematocrit (Bld) [Volume fraction] 44.7 % Normal 38.8-50.0 [facility] Comment on above: Performed By: #### P RL, PP, CBC, CMP ####[address] [place] [address] [facility] Hemoglobin [Mass/volume] in BloodOrdered By: Carolina Soriano on 03-27-2024 Hemoglobin (Bld) [Mass/Vol] 15.2 g/dL Normal 13.0-17.0 [facility] Comment on above: Performed By: #### P RL, PP, CBC, CMP ####[facility] [place] [id number] [facility] INR in Platelet poor plasma by Coagulation assayOrdered By: Carolina Soriano on 03-27-2024 INR Coag (PPP) [Relative time] 0.8 {INR} Normal [facility] Comment on above: Result Comment: INR Therapeutic Range A) Pre- and Peroperative OAT started two weeks before surgery. NOT HIP SURGERY: 1.5 - 2.5 HIP SURGERY: 2 - 3 B) Primary and secondary prevention of venous THROMBOSIS: 2 - 3 C) Active venous thrombosis, pulmonary embolism and prevention of recurrent venous thrombosis: 2 - 3 D) Prevention of arterial thromboembolism including patients with mechanical heart valves: 3 - 4.5 Performed By: #### P RL, PP, CBC, CMP ####[address] Leukocytes [#/volume] correc darnell for nucleated erythrocytes in Blood by Automated counOrdered By: Carolina Soriano on 03-27-2024 WBC corrected for nucl RBC Auto (Bld) [#/Vol] 5.9 10*3/uL 4.1-10.5 [facility] Leukocytes [#/volume] in Blo od by Automated countOrdered By: Carolina Salinas on 03-27-2024 WBC (Bld) [#/Vol] 5.9 10*3/uL Normal 4.1-10.5 [facility] Comment on above: Performed By: #### P RL, PP, CBC, CMP ####[address] Lymphocytes [#/volume] in Bl ood by Automated countOrdered By: Carolina Salinas on 03-27-2024 Lymphocytes (Bld) [#/Vol] 1.4 10*3/uL Normal 1.00-4.8 [facility] Comment on above: Performed By: #### P RL, PP, CBC, CMP ####[address] Lymphocytes/100 leukocytes i n Blood by Automated countOrdered By: Carolina Soriano on 03-27-2024 Lymphocytes/100 WBC (Bld) 23.0 % Normal . [facility] Comment on above: Performed By: #### P RL, PP, CBC, CMP ####[address] MCH [Entitic mass] by Automa darnell countOrdered By: Carolina Soriano on 03-27-2024 MCH (RBC) [Entitic mass] 28.1 pg Normal 27.5-35.2 [facility] Comment on above: Performed By: #### P RL, PP, CBC, CMP ####[address] MCHC Auto (RBC) [Mass/Vol]Or dered By: Carolina Soriano on 03-27-2024 MCHC (RBC) [Mass/Vol] 34.1 g/dL 32.5-35.6 [facility] MCV [Entitic volume] by Auto mated countOrdered By: Carolina Soriano on 03-27-2024 MCV (RBC) [Entitic vol] 82.4 fL Low 83.5-101 [facility] Comment on above: Performed By: #### P RL, PP, CBC, CMP ####[address] Neutrophils [#/volume] in Bl ood by Automated countOrdered By: Carolina Salinas on 03-27-2024 Neutrophils (Bld) [#/Vol] 3.7 10*3/uL Normal 1.8-7.7 [facility] Comment on above: Performed By: #### P RL, PP, CBC, CMP ####[address] No Panel InformationOrdered By: Carolina Soriano on 03-27-2024 > 60.0 mL/Min [facility] 90.94 [facility] No Panel InformationOrdered By: Nigel Rdz on 03-27-2024 Bedside Glucose Comment Glu2: cleaned meter [facility] Glu2: cleaned meter [facility] Nucleated erythrocytes [Pres ence] in Blood by Automated countOrdered By: Carolina Soriano on 03-27-2024 Nucleated RBC Auto Ql (Bld) 0.1 /100{WBC} 0-0.5 [facility] Platelet mean volume [Entiti c volume] in Blood by Automated countOrdered By: Carolina Soriano on 03-27-2024 Platelet mean volume (Bld) [Entitic vol] 9.1 fL Normal 6.6-10.1 [facility] Comment on above: Performed By: #### P RL, PP, CBC, CMP ####[address] [address] [facility] Platelets [#/volume] in Bloo d by Automated countOrdered By: Carolina Soriano on 03-27-2024 Platelets (Bld) [#/Vol] 172 10*3/uL Normal 150-450 [facility] Comment on above: Performed By: #### P RL, PP, CBC, CMP ####[address] [address] [facility] Potassium [Moles/volume] in Serum or PlasmaOrdered By: Carolina Soriano on 03-27-2024 Potassium [Moles/Vol] 4.1 mmol/L Normal 3.5-5.1 [facility] Comment on above: Performed By: #### P RL, PP, CBC, CMP ####[address] [address] [facility] Prolactinon 03-27-2024 Prolactin 8.47 ng/mL Normal 2.64-13.13 [facility] Comment on above: Result Comment: PERF ORMED BY:[address] [place], [place] [phone] MEDICAL DIRECTORDAMIÁN BONNER M.D. Performed By: #### P RL, PP, CBC, CMP ####[address] [address] [facility] Prolactin [Mass/volume] in S lian or PlasmaOrdered By: Carolina Soriano on 03-27-2024 Prolactin [Mass/Vol] 8.47 ng/mL 2.64-13.13 [facility] Protein [Mass/volume] in Ser um or PlasmaOrdered By: Carolina Soriano on 03-27-2024 Protein [Mass/Vol] 6.5 g/dL Normal 6.4-8.9 [facility] Comment on above: Performed By: #### P RL, PP, CBC, CMP ####[address] Prothrombin time (PT)Ordered By: Carolina Soriano on 03-27-2024 PT Coag (PPP) [Time] 9.7 s Normal 9.0-12.9 [facility] Comment on above: Result Comment: A he matocrit value greater than 55% may lead to inaccurate results in coagulation testing. Patients having hematocrit values >55% require a special collection tube for coagulation studies. Please contact the laboratory at [phone] for redraw instructions. Performed By: #### P RL, PP, CBC, CMP ####[address] Serum globulin measurement b y calculation (mass/volume)Ordered By: Carolina Soriano on 03-27-2024 Globulin (S) [Mass/Vol] 2.6 g/dL Normal [facility] Comment on above: Performed By: #### P RL, PP, CBC, CMP ####[address] Serum or plasma albumin/glob ulin mass ratioOrdered By: Carolina Soriano on 03-27-2024 Albumin/Globulin [Mass ratio] 1.5 {ratio} Normal [facility] Comment on above: Performed By: #### P RL, PP, CBC, CMP ####[address] Serum or plasma anion gap de terminationOrdered By: Carolina Soriano on 03-27-2024 Anion gap [Moles/Vol] 13.4 mmol/L Normal 6.0-15.0 [facility] Comment on above: Performed By: #### P RL, PP, CBC, CMP ####[address] [address] [facility] Sodium [Moles/volume] in Ser um or PlasmaOrdered By: Carolina Soriano on 03-27-2024 Sodium [Moles/Vol] 131 mmol/L Low 136-145 [facility] Comment on above: Performed By: #### P RL, PP, CBC, CMP ####[place] [id number] [facility] Troponin I High Sensitivityo n 03-27-2024 Troponin I High Sensitivity < 2.3 Normal 0.0-20.0 [facility] Comment on above: Result Comment: PERF ORMED BY:[address] [place], [place] [phone] MEDICAL DIRECTORDAMIÁN BONNER M.D. Performed By: #### H S TROP ####[place] [id number] [facility] Troponin I.cardiac [Mass/vol ume] in Serum or Plasma by Detection limit <= 0.01 ng/Ordered By: Carolina Soriano on 03-27-2024 Troponin I.cardiac DL <= 0.01 ng/mL [Mass/Vol] < 2.3 pg/mL 0.0-20.0 [facility] Urea nitrogen [Mass/volume] in Serum or PlasmaOrdered By: Carolina Soriano on 03-27-2024 Urea nitrogen [Mass/Vol] 20 mg/dL Normal 7-25 [facility] Comment on above: Performed By: #### P RL, PP, CBC, CMP ####[address] [address] [facility] Glucose Poct Glucometerson 0 03-26-2024 Commemt1 Glu2: NOTIFY DR Barrera [facility] Comment on above: Result Comment: PERF ORMED BY:[address] [place], [place] [phone] MEDICAL DIRECTORDAMIÁN BONNER M.D. Performed By: #### G LULS ####Point of Care testing, Glucose [Mass/Vol] 405 mg/dL Off scale high [facility] Comment on above: Result Comment: [place] Glucose Reference Range is dependent on time and content of last meal. Glucose of more than 200 mg/dL in a nonstressed, ambulatory subject supports the diagnosis of Diabetes Mellitus. Performed By: #### G LULS ####Point of Care testing, Commemt1 Glu2: Cleaned Meter Normal [facility] Comment on above: Result Comment: PERF ORMED BY:[address] [place], [place] [phone] MEDICAL DIRECTORDAMIÁN BONNER M.D. Performed By: #### G LULS ####Point of Care testing, Glucose [Mass/Vol] 400 mg/dL Off scale high [facility] Comment on above: Result Comment: [place] Glucose Reference Range is dependent on time and content of last meal. Glucose of more than 200 mg/dL in a nonstressed, ambulatory subject supports the diagnosis of Diabetes Mellitus. Performed By: #### G LULS ####Point of Care testing, Commemt1 Glu2: Cleaned Meter Normal [facility] Comment on above: Result Comment: PERF ORMED BY:[address] [place], [place] [phone] MEDICAL DIRECTORDAMIÁN BONNER M.D. Performed By: #### G LULS ####Point of Care testing, Glucose [Mass/Vol] 385 mg/dL Normal [facility] Comment on above: Result Comment: [place] Glucose Reference Range is dependent on time and content of last meal. Glucose of more than 200 mg/dL in a nonstressed, ambulatory subject supports the diagnosis of Diabetes Mellitus. Performed By: #### G LULS ####Point of Care testing, Commemt1 Glu2: Cleaned Meter Normal [facility] Comment on above: Result Comment: PERF ORMED BY:[address] [place], [place] [phone] MEDICAL DIRECTORDAMIÁN BONNER M.D. Performed By: #### G LULS ####Point of Care testing, Glucose [Mass/Vol] 222 mg/dL Normal [facility] Comment on above: Result Comment: [place] Glucose Reference Range is dependent on time and content of last meal. Glucose of more than 200 mg/dL in a nonstressed, ambulatory subject supports the diagnosis of Diabetes Mellitus. Performed By: #### G LULS ####Point of Care testing, Commemt1 Glu2: Cleaned Meter Normal [facility] Comment on above: Result Comment: PERF ORMED BY:[address] [place], [place] [phone] MEDICAL DIRECTORDAMIÁN BONNER M.D. Performed By: #### G LULS ####Point of Care testing, Glucose [Mass/Vol] 326 mg/dL Normal [facility] Comment on above: Result Comment: [facility] Glucose Reference Range is dependent on time and content of last meal. Glucose of more than 200 mg/dL in a nonstressed, ambulatory subject supports the diagnosis of Diabetes Mellitus. Performed By: #### G LULS ####Point of Care testing, A1C with Estimated Average [facility] 03-25-2024 Glucose [Mass/Vol] 335 mg/dL Normal [facility] Comment on above: Result Comment: PERF ORMED BY:[address] [place], [place] [phone] MEDICAL DIRECTORDAMIÁN BONNER M.D. Performed By: #### V [id number], A1C WTH eA, TSH3 wRFLX, LIPID, BMP ####[address] [place] [address] [facility] Basic Metabolic Panelon 08-0 Creatinine Clr Calc Pharmacy 102.55 Normal [facility] Comment on above: Performed By: #### V [id number], A1C WTH eA, TSH3 wRFLX, LIPID, BMP ####[address] [address] [facility] GFR/1.73 sq M.predicted MDRD (S/P/Bld) [Vol rate/Area] mL/min/{1.73_m2} Normal [facility] Comment on above: Performed By: #### V [id number], A1C WTH eA, TSH3 wRFLX, LIPID, BMP ####[address] [place] [address] [place] Calcium [Mass/volume] in Ser um or PlasmaOrdered By: Carolina Soriano on 03-25-2024 Calcium [Mass/Vol] 9.0 mg/dL Normal 8.6-10.3 [facility] Comment on above: Performed By: #### V [id number], A1C WTH eA, TSH3 wRFLX, LIPID, BMP ####[address] [place] [address] [facility] Carbon dioxide, total [Moles /volume] in Serum or PlasmaOrdered By: Carolina Soriano on 03-25-2024 CO2 [Moles/Vol] 29.5 mmol/L Normal 21.0-31.0 [facility] Comment on above: Performed By: #### V [id number], A1C WTH eA, TSH3 wRFLX, LIPID, BMP ####[address] [address] [place] Chloride [Moles/volume] in S lian or PlasmaOrdered By: Carolina Soriano on 03-25-2024 Chloride [Moles/Vol] 98 mmol/L Normal 98-107 [facility] Comment on above: Performed By: #### V [id number], A1C WTH eA, TSH3 wRFLX, LIPID, BMP ####[address] [address] [facility] Cholesterol [Mass/volume] in Serum or PlasmaOrdered By: Nigel Rdz on 03-25-2024 Cholesterol [Mass/Vol] 130 mg/dL Low 140-200 [facility] Comment on above: Chol less than 200 m g/dl low riskChol 201-239 mg/dl borderline riskChol 240 mg/dl and greater high risk Result Comment: Chol less than 200 mg/dl low risk Chol 201-239 mg/dl borderline risk Chol 240 mg/dl and greater high risk Performed By: #### V [id number], A1C WTH eA, TSH3 wRFLX, LIPID, BMP ####[facility] [address] [place] [address] [facility] Cholesterol in LDL Calc [Mas s/Vol]Ordered By: Nigel Rdz on 03-25-2024 Cholesterol in LDL [Mass/Vol] 51 mg/dL 0-100 [facility] Comment on above: LDL ATP III CLASSIFI CATIONLDL less than 100 mg/dL OptimalLDL 100-129 mg/dL Near or above optimalLDL 130-159 mg/dL Borderline highLDL 160-189 mg/dL HighLDL greater than 189 mg/dL Very high Cholesterol in VLDL Calc [Ma ss/Vol]Ordered By: Nigel Rdz on 03-25-2024 Cholesterol in VLDL [Mass/Vol] 46 mg/dL [facility] Creatinine [Mass/volume] in Serum or PlasmaOrdered By: Carolina Soriano on 03-25-2024 Creatinine [Mass/Vol] 0.94 mg/dL Normal 0.70-1.30 [facility] Comment on above: Performed By: #### V [id number], A1C [facility], TSH3 wRFLX, LIPID, BMP ####[facility] [address] [place] [address] [facility] Glucose Poct Glucometerson 0 03-25-2024 Commemt1 Glu2: Cleaned Meter Normal [facility] Comment on above: Result Comment: PERF ORMED BY:[address] [place], [place] [phone] MEDICAL DIRECTORDAMIÁN BONNER M.D. Performed By: #### G LULS ####Point of Care testing, Glucose [Mass/Vol] 426 mg/dL Off scale high [facility] Comment on above: Result Comment: [place] Glucose Reference Range is dependent on time and content of last meal. Glucose of more than 200 mg/dL in a nonstressed, ambulatory subject supports the diagnosis of Diabetes Mellitus. Performed By: #### G LULS ####Point of Care testing, Commemt1 Normal [facility] Comment on above: Result Comment: Glu2 : WILL NOTIFY DR/RN Performed By: #### G LULS ####Point of Care testing, Commemt2 Cleaned Meter Normal [facility] Comment on above: Result Comment: PERF ORMED BY:[address] [place], [place] [phone] MEDICAL DIRECTORDAMIÁN BONNER M.D. Performed By: #### G LULS ####Point of Care testing, Glucose [Mass/Vol] 445 mg/dL Off scale high [facility] Comment on above: Result Comment: [place] Glucose Reference Range is dependent on time and content of last meal. Glucose of more than 200 mg/dL in a nonstressed, ambulatory subject supports the diagnosis of Diabetes Mellitus. Performed By: #### G LULS ####Point of Care testing, Commemt1 Glu2: Cleaned Meter Normal [facility] Comment on above: Performed By: #### G LULS ####Point of Care testing, Commemt2 WILL NOTIFY DR/RN Normal [facility] Comment on above: Result Comment: PERF ORMED BY:[address] [place], [place] [phone] MEDICAL DIRECTORDAMIÁN BONNER M.D. Performed By: #### G LULS ####Point of Care testing, Glucose [Mass/Vol] 507 mg/dL Off scale high [facility] Comment on above: Result Comment: [place] om Glucose Reference Range is dependent on time and content of last meal. Glucose of more than 200 mg/dL in a nonstressed, ambulatory subject supports the diagnosis of Diabetes Mellitus. Performed By: #### G LULS ####Point of Care testing, Commemt1 Glu2: Cleaned Meter Normal [facility] Comment on above: Result Comment: PERF ORMED BY:[address] [place], [place] [phone] MEDICAL DIRECTORDAMIÁN BONNER M.D. Performed By: #### G LULS ####Point of Care testing, Glucose [Mass/Vol] 219 mg/dL Normal [facility] Comment on above: Result Comment: [place] om Glucose Reference Range is dependent on time and content of last meal. Glucose of more than 200 mg/dL in a nonstressed, ambulatory subject supports the diagnosis of Diabetes Mellitus. Performed By: #### G LULS ####Point of Care testing, Commemt1 Glu2: Cleaned Meter Normal [facility] Comment on above: Result Comment: PERF ORMED BY:[facility] [place], [place] [phone] MEDICAL DIRECTORDAMIÁN BONNER M.D. Performed By: #### G LULS ####Point of Care testing, Glucose [Mass/Vol] 291 mg/dL Normal [facility] Comment on above: Result Comment: [place] om Glucose Reference Range is dependent on time and content of last meal. Glucose of more than 200 mg/dL in a nonstressed, ambulatory subject supports the diagnosis of Diabetes Mellitus. Performed By: #### G LULS ####Point of Care testing, Glucose [Mass/volume] in Ser um or PlasmaOrdered By: Carolina Soriano on 03-25-2024 Glucose [Mass/Vol] 254 mg/dL Significant change up 70-100 [facility] Comment on above: Delta: 558 on -0129ADA recommended reference rangeRandom Glucose Reference Range is dependent on time and content of last meal. Glucose of more than 200 mg/dL in a nonstressed, ambulatory subject supports the diagnosis of Diabetes Mellitus. Result Comment: [place] Glucose Reference Range is dependent on time and content of last meal. Glucose of more than 200 mg/dL in a nonstressed, ambulatory subject supports the diagnosis of Diabetes Mellitus. ADA recommended reference range Performed By: #### V [id number], A1C WTH eA, TSH3 wRFLX, LIPID, BMP ####[facility] [id number] [place] [address] [place] Glucose mean value [Mass/vol ume] in Blood Estimated from glycated hemoglobinOrdered By: Nigel Rdz on 03-25-2024 Average glucose Estimated from glycated hemoglobin (Bld) [Mass/Vol] 335 mg/dL [facility] Hemoglobin A1c percentageOrd ered By: Nigel Rdz on 03-25-2024 HbA1c (Bld) [Mass fraction] 13.3 % High 4.3-5.6 [facility] Comment on above: Increased risk for d iabetes: 5.7 - 6.4diabetes: >6.4glycemic control for adults with diabetes: <7.0 Result Comment: Incr eased risk for diabetes: 5.7 - 6.4 diabetes: >6.4 glycemic control for adults with diabetes: <7.0 Performed By: #### V [id number], A1C WTH eA, TSH3 wRFLX, LIPID, BMP ####[facility] [place] [address] [facility] Lipid Panelon 03-25-2024 LDL Cholesterol,Calculated 51 mg/dL Normal 0-100 [facility] Comment on above: Result Comment: LDL ATP III CLASSIFICATION LDL less than 100 mg/dL Optimal LDL 100-129 mg/dL Near or above optimal LDL 130-159 mg/dL Borderline high LDL 160-189 mg/dL High LDL greater than 189 mg/dL Very high Performed By: #### V [id number], A1C WTH eA, TSH3 wRFLX, LIPID, BMP ####[place] [address] [place] [address] [facility] Triglyceride w/Reflex 232 mg/dL High 0-149 [facility] Comment on above: Result Comment: TRIG ATP III CLASSIFICATION TRIG less than 150 mg/dL Normal TRIG 150-199 mg/dL Borderline high TRIG 200-500 mg/dL High TRIG greater than 500 mg/dL Very high Standard traceable to the Center for Disease Conrtrol and Prevention (CDC) test method. Performed By: #### V [id number], A1C WTH eA, TSH3 wRFLX, LIPID, BMP ####[facility] [place] [address] [facility] VLDL CHOLESTEROL 46 mg/dL Normal [facility] Comment on above: Performed By: #### V [id number], A1C WTH eA, TSH3 wRFLX, LIPID, BMP ####[facility] [place] [address] [facility] No Panel InformationOrdered By: Nigel Rdz on 03-25-2024 Bedside Glucose #2 Comment Cleaned meter [facility] Cleaned meter [facility] No Panel InformationOrdered By: Carolinakamlesh Soriano on 03-25-2024 Estimated GFR (CKD-EPI) > 60.0 mL/Min [facility] Creatinine Clearance (Chem 102.55 [facility] Potassium [Moles/volume] in Serum or PlasmaOrdered By: Carolina Soriano on 03-25-2024 Potassium [Moles/Vol] 3.9 mmol/L Normal 3.5-5.1 [facility] Comment on above: Performed By: #### V [id number], A1C WT eA, TSH3 wRFLX, LIPID, BMP ####[place] [id number] Serum or plasma anion gap de terminationOrdered By: Carolina Soriano on 03-25-2024 Anion gap [Moles/Vol] 11.4 mmol/L Normal 6.0-15.0 [facility] Comment on above: Performed By: #### V [id number], A1C WTH eA, TSH3 wRFLX, LIPID, BMP ####[place] [address] Serum or plasma high density lipoprotein (HDL) cholesterol measurementOrdered By: Nigel Rdz on 03-25-2024 Cholesterol in HDL [Mass/Vol] 33 mg/dL Normal 23-92 [facility] Comment on above: HDL CHOL ATP-III CLA SSIFICATION Cardiovascular RiskHDL > or equal to 60 mg/dL LOWHDL < 40 mg/dL HIGH Result Comment: HDL CHOL ATP-III CLASSIFICATION Cardiovascular Risk HDL > or equal to 60 mg/dL LOW HDL < 40 mg/dL HIGH Performed By: #### V [id number], A1C WTH eA, TSH3 wRFLX, LIPID, BMP ####[facility] Serum or plasma total choles terol/high density lipoprotein (HDL) cholesterol mass ratOrdered By: Nigel Rdz on 03-25-2024 Cholesterol.total/Lois sterol in HDL [Mass ratio] 3.9 {ratio} Normal <5.0 [facility] Comment on above: Performed By: #### V [id number], A1C WT eA, TSH3 wRFLX, LIPID, BMP ####[place] [address] Sodium [Moles/volume] in Ser um or PlasmaOrdered By: Carolina Soriano on 03-25-2024 Sodium [Moles/Vol] 135 mmol/L Significant change down 136-145 [facility] Comment on above: Delta: 128 on -0129 Performed By: #### V [id number], A1C WTH eA, TSH3 wRFLX, LIPID, BMP ####[facility] Thyroid Stim Hormone w/Rflxo n 03-25-2024 Thyroid Stim Hormone w/Rflx 1.27 u[iU]/mL Normal 0.45-5.33 [facility] Comment on above: Performed By: #### V [id number], A1C WT eA, TSH3 wRFLX, LIPID, BMP ####[facility] [address] Thyrotropin [Units/volume] i n Serum or PlasmaOrdered By: Nigel Rzd on 03-25-2024 TSH Qn 1.27 m[IU]/L 0.45-5.33 [facility] Triglyceride [Mass/volume] i n Serum or PlasmaOrdered By: Nigel Rdz on 03-25-2024 Triglyceride [Mass/Vol] 232 mg/dL High 0-149 [facility] Comment on above: TRIG ATP III CLASSIF ICATIONTRIG less than 150 mg/dL NormalTRIG 150-199 mg/dL Borderline highTRIG 200-500 mg/dL High TRIG greater than 500 mg/dL Very highStandard traceable to the Center for Disease Conrtrol and Prevention (CDC) test method. Urea nitrogen [Mass/volume] in Serum or PlasmaOrdered By: Carolina Soriano on 03-25-2024 Urea nitrogen [Mass/Vol] 15 mg/dL Normal 7-25 [facility] Comment on above: Performed By: #### V [id number], A1C WTH eA, TSH3 wRFLX, LIPID, BMP ####[place] [address] [place] [address] [facility] Vitamin D 25 Hydroxy Totalon 03-25-2024 Vitamin D 25 Hydroxy Total 33.0 ng/mL Normal 30-100 [facility] Comment on above: Result Comment: [place]ATYA[place] MIN D STATUS 25([place])VITAMIN D RANGE (ng/mL) Deficient <20 Insufficient 20 to <30 Sufficient 30 to 100 Reference: Kassi Tomas, Diane HADDAD, et al. Evaluation,treatment, and prevention of vitamin D deficiency; an Endocrine Society clinical practice guideline. JCEM. 2010; 96(7):191-.PERFORMED BY:[address] [place], [place] [phone] MEDICAL DIRECTORDAMIÁN BONNER M.D. Performed By: #### V [id number], A1C WT eA, TSH3 wRFLX, LIPID, BMP ####[address] [address] [facility] Vitamin D+Metabolites [Mass/ volume] in Serum or PlasmaOrdered By: Nigel Rdz on 03-25-2024 Vitamin D+Metabolites [Mass/Vol] 33.0 ng/mL 30-100 [facility] Comment on above: VITAMIN D STATUS 25( [place])VITAMIN D RANGE (ng/mL) Deficient <20 Insufficient 20 to <30Sufficient 30 to 100Reference: Kassi Tomas, Diane HADDAD, et al. Evaluation,treatment, and prevention of vitamin D deficiency; an Endocrine Society clinical practice guideline. JCEM. 2010; 96(7):1911-. Alanine aminotransferase [En zymatic activity/volume] in Serum or PlasmaOrdered By: Jaclyn Gudino on 03-24-2024 ALT [Catalytic activity/Vol] 41 U/L Normal 7-52 [facility] Comment on above: Performed By: #### H S TROP, CMP, CBC, CK ####[address] [address] [facility] Albumin [Mass/volume] in Ser um or Plasma by Bromocresol green (BCG) dye binding methoOrdered By: Jaclyn Gudino on 03-24-2024 Albumin BCG dye [Mass/Vol] 4.0 g/dL 3.5-5.7 [facility] Alkaline phosphatase [Enzyma tic activity/volume] in Serum or PlasmaOrdered By: Jaclyn Gudino on 03-24-2024 ALP [Catalytic activity/Vol] 86 U/L Normal 34-104 [facility] Comment on above: Performed By: #### H S TROP, CMP, CBC, CK ####[place] [address] [place] [id number] [facility] Amphetamine Screen Ql (U)Ord ered By: Wiley Haynes on 03-24-2024 Amphetamines Ql (U) Negative Negative [facility] Aspartate aminotransferase [ Enzymatic activity/volume] in Serum or PlasmaOrdered By: Jaclyn Gudino on 03-24-2024 AST [Catalytic activity/Vol] 30 U/L Normal 13-39 [facility] Comment on above: Performed By: #### H S TROP, CMP, CBC, CK ####[place] [id number] [facility] Automated basophil %Ordered By: Jaclyn Gudino on 03-24-2024 Basophils/100 WBC (Bld) 1.3 % Normal . [facility] Comment on above: Performed By: #### H S TROP, CMP, CBC, CK ####[place] [id number] [facility] Automated basophil countOrde red By: Jaclyn Gudino on 03-24-2024 Basophils (Bld) [#/Vol] 0.1 10*3/uL Normal 0.0-0.2 [facility] Comment on above: Result Comment: PERF ORMED BY:[address] [place], [place] [phone] MEDICAL DIRECTORDAMIÁN BONNER M.D. Performed By: #### H S TROP, CMP, CBC, CK ####[place] [id number] [facility] Automated blood monocyte cou ntOrdered By: Jaclyn Gudino on 03-24-2024 Monocytes (Bld) [#/Vol] 0.6 10*3/uL Normal 0.0-0.8 [facility] Comment on above: Performed By: #### H S TROP, CMP, CBC, CK ####[address] Automated eosinophil %Ordere d By: Jaclyn Gudino on 03-24-2024 Eosinophils/100 WBC (Bld) 2.9 % Normal . [facility] Comment on above: Performed By: #### H S TROP, CMP, CBC, CK ####[address] Automated eosinophil countOr dered By: Jaclyn Gudino on 03-24-2024 Eosinophils (Bld) [#/Vol] 0.2 10*3/uL Normal 0.0-0.45 [facility] Comment on above: Performed By: #### H S TROP, CMP, CBC, CK ####[address] Automated monocyte %Ordered By: Jaclyn Gudino on 03-24-2024 Monocytes/100 WBC (Bld) 10.7 % Normal . [facility] Comment on above: Performed By: #### H S TROP, CMP, CBC, CK ####[address] Automated neutrophil %Ordere d By: Jaclyn Gudino on 03-24-2024 Neutrophils/100 WBC (Bld) 63.0 % Normal . [facility] Comment on above: Performed By: #### H S TROP, CMP, CBC, CK ####[address] Barbiturates [Presence] in U rine by Screen methodOrdered By: Wiley Haynes on 03-24-2024 Barbiturates Screen Ql (U) Positive High Negative [facility] Benzodiazepines Screen Ql (U )Ordered By: Wiley Haynes on 03-24-2024 Benzodiazepines Ql (U) Negative Negative [facility] Benzoylecgonine [Presence] i n Urine by Screen methodOrdered By: Wiley Haynes on 03-24-2024 Benzoylecgonine Screen Ql (U) Negative Negative [facility] Bilirubin Test strip Ql (U)O rdered By: Jaclyn Gudino on 03-24-2024 Bilirubin Ql (U) Negative Negative [facility] Bilirubin.total [Mass/volume ] in Serum or PlasmaOrdered By: Jaclyn Gudino on 03-24-2024 Bilirubin [Mass/Vol] 0.3 mg/dL Normal 0.3-1.0 [facility] Comment on above: Performed By: #### H S TROP, CMP, CBC, CK ####[facility] [address] [place] [id number] [facility] CT cervical spine wo conon 0 03-24-2024 CT cervical spine wo con Normal [facility] Calcium [Mass/volume] in Ser um or PlasmaOrdered By: Jaclyn Gudino on 03-24-2024 Calcium [Mass/Vol] 8.2 mg/dL Low 8.6-10.3 [facility] Comment on above: Performed By: #### H S TROP, CMP, CBC, CK ####[facility] [address] [place] [id number] [facility] Cannabinoids [Presence] in U rine by Screen methodOrdered By: Wiley Haynes on 03-24-2024 Cannabinoids Screen Ql (U) Positive High Negative [facility] Comment on above: These are unconfirme d results and should not be used for legal purposes. Drug Cut-Off Concentration: AMPH 1000 ng/mL TYREE 200 ng/mL DREA 200 ng/mL COCM 300 ng/mL OP 300 ng/mL PCP 25 ng/mL THC 20 ng/mL Capillary blood glucose marc urement by glucometer (mass/volume)Ordered By: Jaclyn Gudino on 03-24-2024 Glucose [Mass/Vol] 313 mg/dL Normal [facility] Comment on above: Random Glucose Refer ence Range is dependent on time and content of last meal. Glucose of more than 200 mg/dL in a nonstressed, ambulatory subject supports the diagnosis of Diabetes Mellitus. Result Comment: [place] om Glucose Reference Range is dependent on time and content of last meal. Glucose of more than 200 mg/dL in a nonstressed, ambulatory subject supports the diagnosis of Diabetes Mellitus.PERFORMED BY:[address] [place], [place] [phone] MEDICAL DIRECTORDAMIÁN BONNER M.D. Performed By: #### G HARITHA ####Point of Care testing, Carbon dioxide, total [Moles /volume] in Serum or PlasmaOrdered By: Jaclyn Gudino on 03-24-2024 CO2 [Moles/Vol] 25.3 mmol/L Normal 21.0-31.0 [facility] Comment on above: Performed By: #### H S TROP, CMP, CBC, CK ####[address] Chloride [Moles/volume] in S lian or PlasmaOrdered By: Jaclyn Gudino on 03-24-2024 Chloride [Moles/Vol] 92 mmol/L Low 98-107 [facility] Comment on above: Performed By: #### H S TROP, CMP, CBC, CK ####[place] [id number] [facility] Color of Urine by AutoOrdere d By: Jaclyn Gudino on 03-24-2024 Color (U) Colorless Normal Yellow [facility] Comment on above: Order Comment: Name Collection Type:: Clean-Voided Midstream Performed By: #### U A ####[place] [id number] [facility] Complete Blood Count Auto Di ffon 03-24-2024 Mean Corpuscular HGB Conc 33.9 g/dL Normal 32.5-35.6 [facility] Comment on above: Performed By: #### H S TROP, CMP, CBC, CK ####[place] [id number] [facility] Monocytes/100 WBC (Bld) 18.78 % Normal 0.00-20.00 [facility] Comment on above: Performed By: #### H S TROP, CMP, CBC, CK ####[place] [id number] [facility] NRBC% 0.2 /100{WBC} Normal 0-0.5 [facility] Comment on above: Performed By: #### H S TROP, CMP, CBC, CK ####[place] [id number] [facility] Comprehensive Metabolic Pane kamari 03-24-2024 Albumin [Mass/Vol] 4.0 g/dL Normal 3.5-5.7 [facility] Comment on above: Performed By: #### H S TROP, CMP, CBC, CK ####[address] Creatinine Clr Calc Pharmacy 99.53 Normal [facility] Comment on above: Result Comment: PERF ORMED BY:[address] [place], [place] [phone] MEDICAL DIRECTORDAMIÁN BONNER M.D. Performed By: #### H S TROP, CMP, CBC, CK ####[address] GFR/1.73 sq M.predicted MDRD (S/P/Bld) [Vol rate/Area] mL/min/{1.73_m2} Normal [facility] Comment on above: Performed By: #### H S TROP, CMP, CBC, CK ####[address] Creatine kinase [Enzymatic a ctivity/volume] in Serum or PlasmaOrdered By: Jaclyn Gudino on 03-24-2024 CK [Catalytic activity/Vol] 48 U/L Normal 30-223 [facility] Comment on above: Performed By: #### H S TROP, CMP, CBC, CK ####[place] [id number] [facility] Creatinine [Mass/volume] in Serum or PlasmaOrdered By: Jaclyn Gudino on 03-24-2024 Creatinine [Mass/Vol] 0.98 mg/dL Normal 0.70-1.30 [facility] Comment on above: Performed By: #### H S TROP, CMP, CBC, CK ####[address] Drug Screen,Urineon 03-24-20 24 Amphetamine Screen,Urine Negative Normal Negative [facility] Comment on above: Performed By: #### U RDS ####[place] [id number] [facility] Barbiturate Screen,Urine Positive High Negative [facility] Comment on above: Performed By: #### U RDS ####[address] [address] [facility] Benzodiazepines Screen,Urine Negative Normal Negative [facility] Comment on above: Performed By: #### U RDS ####[place] [id number] [facility] Cannabinoid Screen,Urine Positive High Negative [facility] Comment on above: Result Comment: Thes e are unconfirmed results and should not be used for legal purposes. Drug Cut-Off Concentration: AMPH 1000 ng/mL TYREE 200 ng/mL DREA 200 ng/mL COCM 300 ng/mL OP 300 ng/mL PCP 25 ng/mL THC 20 ng/mLPERFORMED BY:[address] [place], [place] [phone] MEDICAL NOLBERTO BONNER M.D. Performed By: #### U RDS ####[place] [id number] [facility] Cocaine Screen,Urine Negative Normal Negative [facility] Comment on above: Performed By: #### U RDS ####[place] [id number] [facility] Opiate Screen,Urine Negative Normal Negative [facility] Comment on above: Performed By: #### U RDS ####[place] [id number] [facility] Phencyclidine Screen,Urine Negative Normal Negative [facility] Comment on above: Performed By: #### U RDS ####[place] [id number] [facility] ECG 12 lead ECGon 03-24-2024 ECG 12 lead ECG Normal [facility] Erythrocyte distribution wid th [Ratio] by Automated countOrdered By: Jaclyn Gudino on 03-24-2024 Erythrocyte distribution width (RBC) [Ratio] 14.0 % Normal 12.0-14.8 [facility] Comment on above: Performed By: #### H S TROP, CMP, CBC, CK ####[place] [address] [place] [address] [facility] Erythrocytes [#/volume] in B lood by Automated countOrdered By: Jaclyn Gudino on 03-24-2024 RBC (Bld) [#/Vol] 5.61 10*6/uL High 3.90-5.60 [facility] Comment on above: Performed By: #### H S TROP, CMP, CBC, CK ####[place] [address] [place] [address] [facility] Ethanol [Mass/volume] in Ser um or PlasmaOrdered By: Wiley Haynes on 03-24-2024 Ethanol [Mass/Vol] mg/dL Normal [facility] Comment on above: Performed By: #### E TYRONE ####[address] [address] [facility] Ethanol [Mass/Vol] TNP [facility] Comment on above: Test not performed Ethyl Alcohol Profileon 02-24 Percent Ethanol Not performed Normal [facility] Comment on above: Result Comment: PERF ORMED BY:[place] [address] [place], [place] [phone] MEDICAL DIRECTORDAMIÁN BONNER M.D. Performed By: #### E TYRONE ####[address] [address] [facility] Glucose Poct Glucometerson 0 03-24-2024 Commemt1 Glu2: Cleaned Meter Normal [facility] Comment on above: Result Comment: PERF ORMED BY:[place] [address] [place], [place] [phone] MEDICAL DIRECTORDAMIÁN BONNER M.D. Performed By: #### G LULS ####Point of Care testing, Glucose [Mass/Vol] 399 mg/dL Normal [facility] Comment on above: Result Comment: [place] Glucose Reference Range is dependent on time and content of last meal. Glucose of more than 200 mg/dL in a nonstressed, ambulatory subject supports the diagnosis of Diabetes Mellitus. Performed By: #### G LULS ####Point of Care testing, Commemt1 Normal [facility] Comment on above: Result Comment: Glu2 : WILL NOTIFY DR/RN Performed By: #### G LULS ####Point of Care testing, Commemt2 Cleaned Meter Normal [facility] Comment on above: Result Comment: PERF ORMED BY:[place] [address] [address] [place], [place] [phone] MEDICAL DIRECTORDAMIÁN BONNER M.D. Performed By: #### G LULS ####Point of Care testing, Glucose [Mass/Vol] 522 mg/dL Off scale high [facility] Comment on above: Result Comment: [place] om Glucose Reference Range is dependent on time and content of last meal. Glucose of more than 200 mg/dL in a nonstressed, ambulatory subject supports the diagnosis of Diabetes Mellitus. Performed By: #### G LULS ####Point of Care testing, Commemt1 Normal [facility] Comment on above: Result Comment: Glu2 : WILL NOTIFY DR/RN Performed By: #### G LULS ####Point of Care testing, Commemt2 Cleaned Meter Normal [facility] Comment on above: Result Comment: PERF ORMED BY:[address] [place]QUEZ[place]juBRE[place], [place] [phone] MEDICAL DIRECTORDAMIÁN BONNER M.D. Performed By: #### G LULS ####Point of Care testing, Glucose [Mass/Vol] 515 mg/dL Off scale high [facility] Comment on above: Result Comment: [place] om Glucose Reference Range is dependent on time and content of last meal. Glucose of more than 200 mg/dL in a nonstressed, ambulatory subject supports the diagnosis of Diabetes Mellitus. Performed By: #### G LULS ####Point of Care testing, Commemt1 Normal [facility] Comment on above: Result Comment: Glu2 : Will Repeat Test Performed By: #### G LULS ####Point of Care testing, Commemt2 WILL NOTIFY DR/MAURICIO Normal [facility] Comment on above: Performed By: #### G LULS ####Point of Care testing, Commemt3 Cleaned Meter Normal [facility] Comment on above: Result Comment: PERF ORMED BY:[place] [address] [place] [place], [place] [phone] MEDICAL DIRECTORDAMIÁN BONNER M.D. Performed By: #### G LULS ####Point of Care testing, Glucose [Mass/Vol] 571 mg/dL Off scale high [facility] Comment on above: Result Comment: [place] om Glucose Reference Range is dependent on time and content of last meal. Glucose of more than 200 mg/dL in a nonstressed, ambulatory subject supports the diagnosis of Diabetes Mellitus. Performed By: #### G LULS ####Point of Care testing, Commemt1 Normal [facility] Comment on above: Result Comment: Glu2 : WILL NOTIFY /RN Performed By: #### G LULS ####Point of Care testing, Commemt2 Cleaned Meter Normal [facility] Comment on above: Result Comment: PERF ORMED BY:[address] [place], [place] [phone] MEDICAL DIRECTORDAMIÁN BONNER M.D. Performed By: #### G LULS ####Point of Care testing, Glucose [Mass/Vol] 424 mg/dL Off scale high [facility] Comment on above: Result Comment: [place] om Glucose Reference Range is dependent on time and content of last meal. Glucose of more than 200 mg/dL in a nonstressed, ambulatory subject supports the diagnosis of Diabetes Mellitus. Performed By: #### G LULS ####Point of Care testing, Glucose [Mass/Vol] 399 mg/dL Normal [facility] Comment on above: Result Comment: [place] om Glucose Reference Range is dependent on time and content of last meal. Glucose of more than 200 mg/dL in a nonstressed, ambulatory subject supports the diagnosis of Diabetes Mellitus.PERFORMED BY:[place] [address] [address] [place], [place] [phone] MEDICAL DIRECTORDAMIÁN BONNER M.D. Performed By: #### G LULS ####Point of Care testing, Commemt1 Normal [facility] Comment on above: Result Comment: Glu2 : Will Repeat Test Performed By: #### G LULS ####Point of Care testing, Commemt2 WILL NOTIFY /MAURICIO Normal [facility] Comment on above: Performed By: #### G LULS ####Point of Care testing, Commemt3 Cleaned Meter Normal [facility] Comment on above: Result Comment: PERF ORMED BY:[address] [place], [place] [phone] MEDICAL DIRECTORDAMIÁN BONNER M.D. Performed By: #### G LULS ####Point of Care testing, Glucose [Mass/Vol] 504 mg/dL Off scale high [facility] Comment on above: Result Comment: [place] om Glucose Reference Range is dependent on time and content of last meal. Glucose of more than 200 mg/dL in a nonstressed, ambulatory subject supports the diagnosis of Diabetes Mellitus. Performed By: #### G LULS ####Point of Care testing, Commemt1 Normal [facility] Comment on above: Result Comment: Glu2 : Will Repeat Test Performed By: #### G LULS ####Point of Care testing, Commemt2 WILL NOTIFY /MAURICIO Normal [facility] Comment on above: Result Comment: PERF ORMED BY:[address] [place], [place] [phone] MEDICAL DIRECTORDAMIÁN BONNER M.D. Performed By: #### G LULS ####Point of Care testing, Glucose [Mass/Vol] 531 mg/dL Off scale high [facility] Comment on above: Result Comment: [place] om Glucose Reference Range is dependent on time and content of last meal. Glucose of more than 200 mg/dL in a nonstressed, ambulatory subject supports the diagnosis of Diabetes Mellitus. Performed By: #### G LULS ####Point of Care testing, Glucose [Mass/volume] in Ser um or PlasmaOrdered By: Jaclyn Gudino on 03-24-2024 Glucose [Mass/Vol] 558 mg/dL Off scale high 70-100 [facility] Comment on above: Critical Result Call ed to and read back by: IMAN HAILE at: 03/24/2024 02:18:43 by:[id number] recommended reference rangeRandom Glucose Reference Range is dependent on time and content of last meal. Glucose of more than 200 mg/dL in a nonstressed, ambulatory subject supports the diagnosis of Diabetes Mellitus. Result Comment: Crit ical Result Called to and read back by: IMAN HAILE at: 03/24/2024 02:18:43 by:[id number] Random Glucose Reference Range is dependent on time and content of last meal. Glucose of more than 200 mg/dL in a nonstressed, ambulatory subject supports the diagnosis of Diabetes Mellitus. ADA recommended reference range Performed By: #### H S TROP, CMP, CBC, CK ####[place] [id number] Glucose [Mass/volume] in Uri ne by Test stripOrdered By: Jaclyn Gudino on 03-24-2024 Glucose Test strip (U) [Mass/Vol] >=1000 mg/dL High Normal [facility] Hematocrit [Volume Fraction] of Blood by Automated countOrdered By: Jaclyn Gudino on 03-24-2024 Hematocrit (Bld) [Volume fraction] 46.5 % Normal 38.8-50.0 [facility] Comment on above: Performed By: #### H S TROP, CMP, CBC, CK ####[address] Hemoglobin Test strip Ql (U) Ordered By: Jaclyn Gudino on 03-24-2024 Hemoglobin Ql (U) Negative Negative [facility] Hemoglobin [Mass/volume] in BloodOrdered By: Jaclyn Gudino on 03-24-2024 Hemoglobin (Bld) [Mass/Vol] 15.8 g/dL Normal 13.0-17.0 [facility] Comment on above: Performed By: #### H S TROP, CMP, CBC, CK ####[place] [id number] [facility] Ketones [Presence] in Urine by Test stripOrdered By: Jaclyn Gudino on 03-24-2024 Ketones Ql (U) Negative Normal Negative [facility] Comment on above: Order Comment: Name Collection Type:: Clean-Voided Midstream Performed By: #### U A ####[address] Leukocyte esterase [Presence ] in Urine by Test stripOrdered By: Jaclyn Gudino on 03-24-2024 Leukocyte esterase Test strip Ql (U) Negative Normal Negative [facility] Comment on above: Order Comment: Name Collection Type:: Clean-Voided Midstream Performed By: #### U A ####[address] Leukocytes [#/volume] correc darnell for nucleated erythrocytes in Blood by Automated counOrdered By: Jaclyn Gudino on 03-24-2024 WBC corrected for nucl RBC Auto (Bld) [#/Vol] 5.3 10*3/uL 4.1-10.5 [facility] Leukocytes [#/volume] in Blo od by Automated countOrdered By: Jaclyn Gudino on 03-24-2024 WBC (Bld) [#/Vol] 5.3 10*3/uL Normal 4.1-10.5 [facility] Comment on above: Performed By: #### H S TROP, CMP, CBC, CK ####[address] Lymphocytes [#/volume] in Bl ood by Automated countOrdered By: Jaclyn Gudino on 03-24-2024 Lymphocytes (Bld) [#/Vol] 1.2 10*3/uL Normal 1.00-4.8 [facility] Comment on above: Performed By: #### H S TROP, CMP, CBC, CK ####[place] [address] [place] Lymphocytes/100 leukocytes i n Blood by Automated countOrdered By: Jaclyn Gudino on 03-24-2024 Lymphocytes/100 WBC (Bld) 22.1 % Normal . [facility] Comment on above: Performed By: #### H S TROP, CMP, CBC, CK ####[place] [id number] [address] MCH [Entitic mass] by Automa darnell countOrdered By: Jaclyn Gudino on 03-24-2024 MCH (RBC) [Entitic mass] 28.1 pg Normal 27.5-35.2 [facility] Comment on above: Performed By: #### H S TROP, CMP, CBC, CK ####[address] MCHC Auto (RBC) [Mass/Vol]Or dered By: Jaclyn Gudino on 03-24-2024 MCHC (RBC) [Mass/Vol] 33.9 g/dL 32.5-35.6 [facility] MCV [Entitic volume] by Auto mated countOrdered By: Jaclyn Gudino on 03-24-2024 MCV (RBC) [Entitic vol] 82.9 fL Low 83.5-101 [facility] Comment on above: Performed By: #### H S TROP, CMP, CBC, CK ####[address] Monocyte distribution width [Entitic volume] in Blood by AutomatedOrdered By: Jaclyn Gudino on 03-24-2024 Monocyte distribution width Auto (Bld) [Entitic vol] 18.78 % 0.00-20.00 [facility] Neutrophils [#/volume] in Bl ood by Automated countOrdered By: Jaclyn Gudino on 03-24-2024 Neutrophils (Bld) [#/Vol] 3.4 10*3/uL Normal 1.8-7.7 [facility] Comment on above: Performed By: #### H S TROP, CMP, CBC, CK ####[address] Nitrite Test strip Ql (U)Ord ered By: Jaclyn Gudino on 03-24-2024 Nitrite Ql (U) Negative Negative [facility] No Panel InformationOrdered By: Nigel Rdz on 03-24-2024 Bedside Glucose #3 Comment Cleaned meter [facility] Cleaned meter [facility] No Panel InformationOrdered By: Jaclyn Gudino on 03-24-2024 Bedside Glucose #[address]/rn [facility] Bedside Glucose #3 Comment Cleaned meter [facility] Bedside Glucose Comment See comment [facility] Comment on above: Glu2: Will Repeat Te st Estimated GFR (CKD-EPI) > 60.0 mL/Min [facility] Creatinine Clearance (Chem 99.53 [facility] Nucleated erythrocytes [Pres ence] in Blood by Automated countOrdered By: Jaclyn Gudino on 03-24-2024 Nucleated RBC Auto Ql (Bld) 0.2 /100{WBC} 0-0.5 [facility] Opiates [Presence] in Urine by Screen methodOrdered By: Wiley Haynes on 03-24-2024 Opiates Screen Ql (U) Negative Negative [facility] Phencyclidine Screen Ql (U)O rdered By: Wiley Haynes on 03-24-2024 Phencyclidine Ql (U) Negative Negative [facility] Platelet mean volume [Entiti c volume] in Blood by Automated countOrdered By: Jaclyn Gudino on 03-24-2024 Platelet mean volume (Bld) [Entitic vol] 9.9 fL Normal 6.6-10.1 [facility] Comment on above: Performed By: #### H S TROP, CMP, CBC, CK ####[facility] [id number] Platelets [#/volume] in Bloo d by Automated countOrdered By: Jaclyn Gudino on 03-24-2024 Platelets (Bld) [#/Vol] 205 10*3/uL Normal 150-450 [facility] Comment on above: Performed By: #### H S TROP, CMP, CBC, CK ####[facility] [id number] [place] [id number] [facility] Potassium [Moles/volume] in Serum or PlasmaOrdered By: Jaclyn Gudino on 03-24-2024 Potassium [Moles/Vol] 4.1 mmol/L Normal 3.5-5.1 [facility] Comment on above: Hemolysis is present at a level that could interfere with the result.Contact lab if redraw is required Result Comment: Hemo lysis is present at a level that could interfere with the result. Contact lab if redraw is required Performed By: #### H S TROP, CMP, CBC, CK ####[address] Protein Test strip (U) [Mass /Vol]Ordered By: Jaclyn Gudino on 03-24-2024 Protein (U) [Mass/Vol] Negative Negative [facility] Protein [Mass/volume] in Ser um or PlasmaOrdered By: Jaclyn Gudino on 03-24-2024 Protein [Mass/Vol] 6.7 g/dL Normal 6.4-8.9 [facility] Comment on above: Performed By: #### H S TROP, CMP, CBC, CK ####[address] Serum globulin measurement b y calculation (mass/volume)Ordered By: Jaclyn Gudino on 03-24-2024 Globulin (S) [Mass/Vol] 2.7 g/dL Normal [facility] Comment on above: Performed By: #### H S TROP, CMP, CBC, CK ####[address] Serum or plasma albumin/glob ulin mass ratioOrdered By: Jaclyn Gudino on 03-24-2024 Albumin/Globulin [Mass ratio] 1.5 {ratio} Normal [facility] Comment on above: Performed By: #### H S TROP, CMP, CBC, CK ####[address] Serum or plasma anion gap de terminationOrdered By: Jaclyn Gudino on 03-24-2024 Anion gap [Moles/Vol] 14.8 mmol/L Normal 6.0-15.0 [facility] Comment on above: Performed By: #### H S TROP, CMP, CBC, CK ####[address] Sodium [Moles/volume] in Ser um or PlasmaOrdered By: Jaclyn Gudino on 03-24-2024 Sodium [Moles/Vol] 128 mmol/L Low 136-145 [facility] Comment on above: Performed By: #### H S TROP, CMP, CBC, CK ####[place] [id number] [place] [id number] [facility] Specific gravity Test strip (U) [Rel density]Ordered By: Jaclyn Gudino on 03-24-2024 Specific gravity (U) [Rel density] 1.027 1.001-1.03 0 [facility] Troponin I High Sensitivityo n 03-24-2024 Troponin I High Sensitivity 3.1 pg/mL Normal 0.0-20.0 [facility] Comment on above: Result Comment: PERF ORMED BY:[address] [place], [place] [phone] MEDICAL DIRECTORDAMIÁN BONNER M.D. Performed By: #### H S TROP, CMP, CBC, CK ####[place] [id number] [facility] Troponin I.cardiac [Mass/vol ume] in Serum or Plasma by Detection limit <= 0.01 ng/Ordered By: Jaclyn Gudino on 03-24-2024 Troponin I.cardiac DL <= 0.01 ng/mL [Mass/Vol] 3.1 pg/mL 0.0-20.0 [facility] Urea nitrogen [Mass/volume] in Serum or PlasmaOrdered By: Jaclyn Gudino on 03-24-2024 Urea nitrogen [Mass/Vol] 20 mg/dL Normal 7-25 [facility] Comment on above: Performed By: #### H S TROP, CMP, CBC, CK ####[place] [id number] [facility] Urinalysison 03-24-2024 Bilirubin,Urine Negative Normal Negative [facility] Comment on above: Order Comment: Name Collection Type:: Clean-Voided Midstream Performed By: #### U A ####[place] [id number] [facility] Glucose Ql (U) >=1000 High Normal [facility] Comment on above: Order Comment: Name Collection Type:: Clean-Voided Midstream Performed By: #### U A ####[place] [id number] [facility] Nitrite,Urine Negative Normal Negative [facility] Comment on above: Order Comment: Name Collection Type:: Clean-Voided Midstream Performed By: #### U A ####[address] [address] [facility] Occult Blood,Urine Negative Normal Negative [facility] Comment on above: Order Comment: Name Collection Type:: Clean-Voided Midstream Result Comment: PERF ORMED BY:[address] [place], [place] [phone] MEDICAL DIRECTORDAMIÁN BONNER M.D. Performed By: #### U A ####[address] [address] [facility] Protein,Urine Negative Normal Negative [facility] Comment on above: Order Comment: Name Collection Type:: Clean-Voided Midstream Performed By: #### U A ####[address] [address] [facility] Specificy [place],Urine 1.027 Normal 1.00 1-1.03 0 [facility] Comment on above: Order Comment: Name Collection Type:: Clean-Voided Midstream Performed By: #### U A ####[address] [address] [facility] Urobilinogen,Urine Normal Normal Normal [facility] Comment on above: Order Comment: Name Collection Type:: Clean-Voided Midstream Performed By: #### U A ####[address] [address] [facility] Urine appearanceOrdered By: Jaclyn Gudino on 03-24-2024 Appearance (U) Clear Normal Clear [facility] Comment on above: Order Comment: Name Collection Type:: Clean-Voided Midstream Performed By: #### U A ####[address] [address] [facility] Urobilinogen Test strip (U) [Mass/Vol]Ordered By: Jaclyn Gudino on 03-24-2024 Urobilinogen (U) [Mass/Vol] Normal mg/dL Normal [facility] pH of Urine by Test stripOrd ered By: Jaclyn Gudino on 03-24-2024 pH (U) 5.5 [pH] Normal 5.0-9.0 [facility] Comment on above: Order Comment: Name Collection Type:: Clean-Voided Midstream Performed By: #### U A ####[address] XR knee LT 4V*on 02-24-2024 XR knee LT 4V* Normal [facility] Alanine aminotransferase [En zymatic activity/volume] in Serum or PlasmaOrdered By: Jaclyn Gudino on 02-23-2024 ALT [Catalytic activity/Vol] 22 U/L Normal 7-52 [facility] Comment on above: Performed By: #### B HOB, CBC, HS TROP, CK, CMP ####[address] Albumin [Mass/volume] in Ser um or Plasma by Bromocresol green (BCG) dye binding methoOrdered By: Jaclyn Gudino on 02-23-2024 Albumin BCG dye [Mass/Vol] 3.8 g/dL 3.5-5.7 [facility] Alkaline phosphatase [Enzyma tic activity/volume] in Serum or PlasmaOrdered By: Jaclyn Gudino on 02-23-2024 ALP [Catalytic activity/Vol] 65 U/L Normal 34-104 [facility] Comment on above: Performed By: #### B HOB, CBC, HS TROP, CK, CMP ####[place] [id number] [facility] Aspartate aminotransferase [ Enzymatic activity/volume] in Serum or PlasmaOrdered By: Jaclyn Gudino on 02-23-2024 AST [Catalytic activity/Vol] 18 U/L Normal 13-39 [facility] Comment on above: Performed By: #### B HOB, CBC, HS TROP, CK, CMP ####[address] Automated basophil %Ordered By: MARGARITA ESPINAL on 02-23-2024 Basophils/100 WBC (Bld) 0.9 % Normal . [facility] Comment on above: Performed By: #### B HOB, CBC, HS TROP, CK, CMP ####[place] [address] Automated basophil countOrde red By: PROVIDER TEMP on 02-23-2024 Basophils (Bld) [#/Vol] 0.1 10*3/uL Normal 0.0-0.2 [facility] Comment on above: Result Comment: PERF ORMED BY:[address] [place], [place] [phone] MEDICAL DIRECTORDAMIÁN BONNER M.D. Performed By: #### B HOB, CBC, HS TROP, CK, CMP ####[address] Automated blood monocyte cou ntOrdered By: PROVIDER TEMP on 02-23-2024 Monocytes (Bld) [#/Vol] 0.5 10*3/uL Normal 0.0-0.8 [facility] Comment on above: Performed By: #### B HOB, CBC, HS TROP, CK, CMP ####[address] Automated eosinophil %Ordere d By: PROVIDER TEMP on 02-23-2024 Eosinophils/100 WBC (Bld) 3.2 % Normal . [facility] Comment on above: Performed By: #### B HOB, CBC, HS TROP, CK, CMP ####[address] Automated eosinophil countOr dered By: PROVIDER TEMP on 02-23-2024 Eosinophils (Bld) [#/Vol] 0.2 10*3/uL Normal 0.0-0.45 [facility] Comment on above: Performed By: #### B HOB, CBC, HS TROP, CK, CMP ####[address] Automated monocyte %Ordered By: PROVIDER TEMP on 02-23-2024 Monocytes/100 WBC (Bld) 8.3 % Normal . [facility] Comment on above: Performed By: #### B HOB, CBC, HS TROP, CK, CMP ####[address] Automated neutrophil %Ordere d By: MARGARITA ESPINAL on 02-23-2024 Neutrophils/100 WBC (Bld) 70.0 % Normal . [facility] Comment on above: Performed By: #### B HOB, CBC, HS TROP, CK, CMP ####[facility] [place] [address] [facility] Beta Hydroxybuterateon 02-22 Beta Hydroxybuterate 0.18 mmol/L Normal 0.02-0.27 [facility] Comment on above: Result Comment: PERF ORMED BY:[place] [address] [place], [place] [phone] MEDICAL DIRECTORDAMIÁN BONNER M.D. Performed By: #### B HOB, CBC, HS TROP, CK, CMP ####[facility] [place] [id number] [facility] Beta hydroxybutyrate [Moles/ volume] in Serum or PlasmaOrdered By: Jaclyn Gudino on 02-23-2024 Beta hydroxybutyrate [Moles/Vol] 0.18 mmol/L 0.02-0.27 [facility] Bilirubin Test strip Ql (U)O rdered By: Jaclyn Gudino on 02-23-2024 Bilirubin Ql (U) Negative Negative [facility] Bilirubin.total [Mass/volume ] in Serum or PlasmaOrdered By: Jaclyn Gudino on 02-23-2024 Bilirubin [Mass/Vol] 0.3 mg/dL Normal 0.3-1.0 [facility] Comment on above: Performed By: #### B HOB, CBC, HS TROP, CK, CMP ####[facility] [place] [id number] [facility] Calcium [Mass/volume] in Ser um or PlasmaOrdered By: Jaclyn Gudino on 02-23-2024 Calcium [Mass/Vol] 8.0 mg/dL Low 8.6-10.3 [facility] Comment on above: Performed By: #### B HOB, CBC, HS TROP, CK, CMP ####[place] [address] [place] [address] [facility] Capillary blood glucose marc urement by glucometer (mass/volume)Ordered By: Jaclyn Gudino on 02-23-2024 Glucose [Mass/Vol] 265 mg/dL Normal [facility] Comment on above: Random Glucose Refer ence Range is dependent on time and content of last meal. Glucose of more than 200 mg/dL in a nonstressed, ambulatory subject supports the diagnosis of Diabetes Mellitus. Result Comment: [place] om Glucose Reference Range is dependent on time and content of last meal. Glucose of more than 200 mg/dL in a nonstressed, ambulatory subject supports the diagnosis of Diabetes Mellitus.PERFORMED BY:[address] [place], [place] [phone] MEDICAL DIRECTORDAMIÁN BONNER M.D. Performed By: #### G HARITHA ####Point of Care testing, Carbon dioxide, total [Moles /volume] in Serum or PlasmaOrdered By: Jaclyn Gudino on 02-23-2024 CO2 [Moles/Vol] 22.7 mmol/L Normal 21.0-31.0 [facility] Comment on above: Performed By: #### B HOB, CBC, HS TROP, CK, CMP ####[place] [id number] [facility] Chloride [Moles/volume] in S lian or PlasmaOrdered By: Jaclyn Gudino on 02-23-2024 Chloride [Moles/Vol] 98 mmol/L Normal 98-107 [facility] Comment on above: Performed By: #### B HOB, CBC, HS TROP, CK, CMP ####[place] [id number] [facility] Color of Urine by AutoOrdere d By: Jaclyn Gudino on 02-23-2024 Color (U) Colorless Normal Yellow [facility] Comment on above: Order Comment: Name Collection Type:: Voided Performed By: #### U A ####[place] [id number] [facility] Complete Blood Count Auto Di ffon 02-23-2024 Mean Corpuscular HGB Conc 33.4 g/dL Normal 32.5-35.6 [facility] Comment on above: Performed By: #### B HOB, CBC, HS TROP, CK, CMP ####[address] Monocytes/100 WBC (Bld) 20.18 % High 0.00-20.00 [facility] Comment on above: Result Comment: For adults in ED, MDW > 20.0 may be associated with a higher risk of sepsis during the first 12 hrs of hospital admission Performed By: #### B HOB, CBC, HS TROP, CK, CMP ####[address] NRBC% 0.1 /100{WBC} Normal 0-0.5 [facility] Comment on above: Performed By: #### B HOB, CBC, HS TROP, CK, CMP ####[address] Comprehensive Metabolic Pane kamari 02-23-2024 Albumin [Mass/Vol] 3.8 g/dL Normal 3.5-5.7 [facility] Comment on above: Performed By: #### B HOB, CBC, HS TROP, CK, CMP ####[address] Creatinine Clr Calc Pharmacy 105.04 Normal [facility] Comment on above: Result Comment: PERF ORMED BY:[address] [place], [place] [phone] MEDICAL NOLBERTO BONNER M.D. Performed By: #### B HOB, CBC, HS TROP, CK, CMP ####[address] GFR/1.73 sq M.predicted MDRD (S/P/Bld) [Vol rate/Area] mL/min/{1.73_m2} Normal [facility] Comment on above: Performed By: #### B HOB, CBC, HS TROP, CK, CMP ####[address] Creatine kinase [Enzymatic a ctivity/volume] in Serum or PlasmaOrdered By: Jaclyn Gudino on 02-23-2024 CK [Catalytic activity/Vol] 37 U/L Normal 30-223 [facility] Comment on above: Performed By: #### B HOB, CBC, HS TROP, CK, CMP ####[place] [id number] [facility] Creatinine [Mass/volume] in Serum or PlasmaOrdered By: Jaclyn Gudino on 02-23-2024 Creatinine [Mass/Vol] 0.97 mg/dL Normal 0.70-1.30 [facility] Comment on above: Performed By: #### B HOB, CBC, HS TROP, CK, CMP ####[place] [id number] [facility] ECG 12 lead ECGon 02-23-2024 ECG 12 lead ECG Normal [facility] Erythrocyte distribution wid th [Ratio] by Automated countOrdered By: PROVIDER TEMP on 02-23-2024 Erythrocyte distribution width (RBC) [Ratio] 13.7 % Normal 12.0-14.8 [facility] Comment on above: Performed By: #### B HOB, CBC, HS TROP, CK, CMP ####[place] [id number] [facility] Erythrocytes [#/volume] in B lood by Automated countOrdered By: PROVIDER TEMP on 02-23-2024 RBC (Bld) [#/Vol] 5.12 10*6/uL Normal 3.90-5.60 [facility] Comment on above: Performed By: #### B HOB, CBC, HS TROP, CK, CMP ####[place] [id number] [facility] Glucose Poct Glucometerson 0 02-23-2024 Commemt1 Normal [facility] Comment on above: Result Comment: Glu2 : WILL NOTIFY DR/RN Performed By: #### G LULS ####Point of Care testing, Commemt2 Cleaned Meter Normal [facility] Comment on above: Result Comment: PERF ORMED BY:[address] [place], [place] [phone] MEDICAL DIRECTORDAMIÁN BONNER M.D. Performed By: #### G LULS ####Point of Care testing, Glucose [Mass/Vol] 415 mg/dL Off scale high [facility] Comment on above: Result Comment: [place] om Glucose Reference Range is dependent on time and content of last meal. Glucose of more than 200 mg/dL in a nonstressed, ambulatory subject supports the diagnosis of Diabetes Mellitus. Performed By: #### G LULS ####Point of Care testing, Commemt1 Normal [facility] Comment on above: Result Comment: Glu2 : WILL NOTIFY DR/TATIERFORMED BY:[facility] [place], [place] [phone] MEDICAL DIRECTORDAMIÁN BONNER M.D. Performed By: #### G LULS ####Point of Care testing, Glucose [Mass/Vol] 438 mg/dL Off scale high Th e [facility] Comment on above: Result Comment: [place] om Glucose Reference Range is dependent on time and content of last meal. Glucose of more than 200 mg/dL in a nonstressed, ambulatory subject supports the diagnosis of Diabetes Mellitus. Performed By: #### G LULS ####Point of Care testing, Glucose [Mass/volume] in Ser um or PlasmaOrdered By: Jaclyn Gudino on 02-23-2024 Glucose [Mass/Vol] 473 mg/dL [facility] 70-100 [facility] Comment on above: ADA recommended refe rence rangeRandom Glucose Reference Range is dependent on time and content of last meal. Glucose of more than 200 mg/dL in a nonstressed, ambulatory subject supports the diagnosis of Diabetes Mellitus. Result Comment: [place] om Glucose Reference Range is dependent on time and content of last meal. Glucose of more than 200 mg/dL in a nonstressed, ambulatory subject supports the diagnosis of Diabetes Mellitus. ADA recommended reference range Performed By: #### B HOB, CBC, HS TROP, CK, CMP ####[facility] [id number] [place] [address] [facility] Glucose [Mass/volume] in Uri ne by Test stripOrdered By: Jaclyn Gudino on 02-23-2024 Glucose Test strip (U) [Mass/Vol] >=1000 mg/dL High Normal [facility] Hematocrit [Volume Fraction] of Blood by Automated countOrdered By: MARGARITA ESPINAL on 02-23-2024 Hematocrit (Bld) [Volume fraction] 43.0 % Normal 38.8-50.0 [facility] Comment on above: Performed By: #### B HOB, CBC, HS TROP, CK, CMP ####[address] Hemoglobin Test strip Ql (U) Ordered By: Jaclyn Gudino on 02-23-2024 Hemoglobin Ql (U) Negative Negative [facility] Hemoglobin [Mass/volume] in BloodOrdered By: PROVIDER TEMP on 02-23-2024 Hemoglobin (Bld) [Mass/Vol] 14.3 g/dL Normal 13.0-17.0 [facility] Comment on above: Performed By: #### B HOB, CBC, HS TROP, CK, CMP ####[address] Ketones [Presence] in Urine by Test stripOrdered By: Jaclyn Gudino on 02-23-2024 Ketones Ql (U) Negative Normal Negative [facility] Comment on above: Order Comment: Name Collection Type:: Voided Performed By: #### U A ####[address] Leukocyte esterase [Presence ] in Urine by Test stripOrdered By: Jaclyn Gudino on 02-23-2024 Leukocyte esterase Test strip Ql (U) Negative Normal Negative [facility] Comment on above: Order Comment: Name Collection Type:: Voided Performed By: #### U A ####[address] Leukocytes [#/volume] correc darnell for nucleated erythrocytes in Blood by Automated counOrdered By: PROVIDER TEMP on 02-23-2024 WBC corrected for nucl RBC Auto (Bld) [#/Vol] 6.0 10*3/uL 4.1-10.5 [facility] Leukocytes [#/volume] in Blo od by Automated countOrdered By: PROVIDER TEMP on 02-23-2024 WBC (Bld) [#/Vol] 6.0 10*3/uL Normal 4.1-10.5 [facility] Comment on above: Performed By: #### B HOB, CBC, HS TROP, CK, CMP ####[address] Lymphocytes [#/volume] in Bl ood by Automated countOrdered By: PROVIDER TEMP on 02-23-2024 Lymphocytes (Bld) [#/Vol] 1.1 10*3/uL Normal 1.00-4.8 [facility] Comment on above: Performed By: #### B HOB, CBC, HS TROP, CK, CMP ####[address] Lymphocytes/100 leukocytes i n Blood by Automated countOrdered By: PROVIDER TEMP on 02-23-2024 Lymphocytes/100 WBC (Bld) 17.6 % Normal . [facility] Comment on above: Performed By: #### B HOB, CBC, HS TROP, CK, CMP ####[address] MCH [Entitic mass] by Automa darnell countOrdered By: PROVIDER TEMP on 02-23-2024 MCH (RBC) [Entitic mass] 28.0 pg Normal 27.5-35.2 [facility] Comment on above: Performed By: #### B HOB, CBC, HS TROP, CK, CMP ####[address] MCHC Auto (RBC) [Mass/Vol]Or dered By: PROVIDER TEMP on 02-23-2024 MCHC (RBC) [Mass/Vol] 33.4 g/dL 32.5-35.6 [facility] MCV [Entitic volume] by Auto mated countOrdered By: PROVIDER TEMP on 02-23-2024 MCV (RBC) [Entitic vol] 84.0 fL Normal 83.5-101 [facility] Comment on above: Performed By: #### B HOB, CBC, HS TROP, CK, CMP ####[address] Monocyte distribution width [Entitic volume] in Blood by AutomatedOrdered By: PROVIDER TEMP on 02-23-2024 Monocyte distribution width Auto (Bld) [Entitic vol] 20.18 % High 0.00-20.00 [facility] Comment on above: For adults in ED, MD W > 20.0 may be associated with a higher risk of sepsis during the first 12 hrs of hospital admission Neutrophils [#/volume] in Bl ood by Automated countOrdered By: PROVIDER TEMP on 02-23-2024 Neutrophils (Bld) [#/Vol] 4.2 10*3/uL Normal 1.8-7.7 [facility] Comment on above: Performed By: #### B HOB, CBC, HS TROP, CK, CMP ####[facility] [id number] [place] [address] [facility] Nitrite Test strip Ql (U)Ord ered By: Jaclyn Gudino on 02-23-2024 Nitrite Ql (U) Negative Negative [facility] No Panel InformationOrdered By: Jaclyn Gudino on 02-23-2024 Bedside Glucose #2 Comment Cleaned meter [facility] Bedside Glucose Comment See comment [facility] Comment on above: Glu2: WILL NOTIFY DR /RN See comment [facility] Cleaned meter [facility] Estimated GFR (CKD-EPI) > 60.0 mL/Min [facility] Creatinine Clearance (Chem 105.04 [facility] > 60.0 mL/Min [facility] 105.04 [facility] Nucleated erythrocytes [Pres ence] in Blood by Automated countOrdered By: PROVIDER TEMP on 02-23-2024 Nucleated RBC Auto Ql (Bld) 0.1 /100{WBC} 0-0.5 [facility] Platelet mean volume [Entiti c volume] in Blood by Automated countOrdered By: PROVIDER TEMP on 02-23-2024 Platelet mean volume (Bld) [Entitic vol] 9.0 fL Normal 6.6-10.1 [facility] Comment on above: Performed By: #### B HOB, CBC, HS TROP, CK, CMP ####[facility] [id number] [place] [address] [facility] Platelets [#/volume] in Bloo d by Automated countOrdered By: PROVIDER TEMP on 02-23-2024 Platelets (Bld) [#/Vol] 175 10*3/uL Normal 150-450 [facility] Comment on above: Performed By: #### B HOB, CBC, HS TROP, CK, CMP ####[address] Potassium [Moles/volume] in Serum or PlasmaOrdered By: Jaclyn Gudino on 02-23-2024 Potassium [Moles/Vol] 4.3 mmol/L Normal 3.5-5.1 [facility] Comment on above: Performed By: #### B HOB, CBC, HS TROP, CK, CMP ####[address] Protein Test strip (U) [Mass /Vol]Ordered By: Jaclyn Gudino on 02-23-2024 Protein (U) [Mass/Vol] Negative Negative [facility] Protein [Mass/volume] in Ser um or PlasmaOrdered By: Jaclyn uGdino on 02-23-2024 Protein [Mass/Vol] 6.5 g/dL Normal 6.4-8.9 [facility] Comment on above: Performed By: #### B HOB, CBC, HS TROP, CK, CMP ####[address] Serum globulin measurement b y calculation (mass/volume)Ordered By: Jaclyn Gudino on 02-23-2024 Globulin (S) [Mass/Vol] 2.7 g/dL Normal [facility] Comment on above: Performed By: #### B HOB, CBC, HS TROP, CK, CMP ####[address] Serum or plasma albumin/glob ulin mass ratioOrdered By: Jaclyn Gudino on 02-23-2024 Albumin/Globulin [Mass ratio] 1.4 {ratio} Normal [facility] Comment on above: Performed By: #### B HOB, CBC, HS TROP, CK, CMP ####[address] Serum or plasma anion gap de terminationOrdered By: Jaclyn Gudino on 02-23-2024 Anion gap [Moles/Vol] 12.6 mmol/L Normal 6.0-15.0 [facility] Comment on above: Performed By: #### B HOB, CBC, HS TROP, CK, CMP ####[address] [address] [facility] Sodium [Moles/volume] in Ser um or PlasmaOrdered By: Jaclyn Gudino on 02-23-2024 Sodium [Moles/Vol] 129 mmol/L Low 136-145 [facility] Comment on above: Performed By: #### B HOB, CBC, HS TROP, CK, CMP ####[address] [address] [facility] Specific gravity Test strip (U) [Rel density]Ordered By: Jaclyn Gudino on 02-23-2024 Specific gravity (U) [Rel density] 1.023 1.001-1.03 0 [facility] Comment on above: Rechecked by refract ometer Troponin I High Sensitivityo n 02-23-2024 Troponin I High Sensitivity < 2.3 Normal 0.0-20.0 [facility] Comment on above: Result Comment: PERF ORMED BY:[address] [place], [place] [phone] MEDICAL DIRECTORDAMIÁN BONNER M.D. Performed By: #### B HOB, CBC, HS TROP, CK, CMP ####[place] [id number] [facility] Troponin I.cardiac [Mass/vol ume] in Serum or Plasma by Detection limit <= 0.01 ng/Ordered By: Jaclyn Gudino on 02-23-2024 Troponin I.cardiac DL <= 0.01 ng/mL [Mass/Vol] < 2.3 pg/mL 0.0-20.0 [facility] Urea nitrogen [Mass/volume] in Serum or PlasmaOrdered By: Jaclyn Gudino on 02-23-2024 Urea nitrogen [Mass/Vol] 19 mg/dL Normal 7-25 [facility] Comment on above: Performed By: #### B HOB, CBC, HS TROP, CK, CMP ####[place] [id number] [facility] Urinalysison 02-23-2024 Bilirubin,Urine Negative Normal Negative [facility] Comment on above: Order Comment: Name Collection Type:: Voided Performed By: #### U A ####[address] [address] [facility] Glucose Ql (U) >=1000 High Normal [facility] Comment on above: Order Comment: Name Collection Type:: Voided Performed By: #### U A ####[address] [address] [facility] Nitrite,Urine Negative Normal Negative [facility] Comment on above: Order Comment: Name Collection Type:: Voided Performed By: #### U A ####[address] [address] [facility] Occult Blood,Urine Negative Normal Negative [facility] Comment on above: Order Comment: Name Collection Type:: Voided Result Comment: PERF ORMED BY:[address] [place], [place] [phone] MEDICAL DIRECTORDAMIÁN BONNER M.D. Performed By: #### U A ####[address] [address] [facility] Protein,Urine Negative Normal Negative [facility] Comment on above: Order Comment: Name Collection Type:: Voided Performed By: #### U A ####[address] [address] [facility] Specificy [place],Urine 1.023 Normal 1.00 1-1.03 0 [facility] Comment on above: Order Comment: Name Collection Type:: Voided Result Comment: Rech ecked by refractometer Performed By: #### U A ####[address] [address] [facility] Urobilinogen,Urine Normal Normal Normal [facility] Comment on above: Order Comment: Name Collection Type:: Voided Performed By: #### U A ####[address] [address] [facility] Urine appearanceOrdered By: Jaclyn Gudino on 02-23-2024 Appearance (U) Clear Normal Clear [facility] Comment on above: Order Comment: Name Collection Type:: Voided Performed By: #### U A ####[place] [id number] [facility] Urobilinogen Test strip (U) [Mass/Vol]Ordered By: Jaclyn Gudino on 02-23-2024 Urobilinogen (U) [Mass/Vol] Normal mg/dL Normal [facility] pH of Urine by Test stripOrd ered By: Jaclyn Gudino on 02-23-2024 pH (U) 5.0 [pH] Normal 5.0-9.0 [facility] Comment on above: Order Comment: Name Collection Type:: Voided Performed By: #### U A ####[place] [id number] [facility] Alanine aminotransferase [En zymatic activity/volume] in Serum or PlasmaOrdered By: Davonte Mendez on 02-05-2024 ALT [Catalytic activity/Vol] 34 U/L Normal 7-52 [facility] Comment on above: Performed By: #### C MP, CBC ####[place] [id number] [facility] Albumin [Mass/volume] in Ser um or Plasma by Bromocresol green (BCG) dye binding methoOrdered By: Davonte Mendez on 02-05-2024 Albumin BCG dye [Mass/Vol] 4.7 g/dL 3.5-5.7 [facility] Alkaline phosphatase [Enzyma tic activity/volume] in Serum or PlasmaOrdered By: Davonte Mendez on 02-05-2024 ALP [Catalytic activity/Vol] 92 U/L Normal 34-104 [facility] Comment on above: Performed By: #### C MP, CBC ####[place] [id number] [facility] Aspartate aminotransferase [ Enzymatic activity/volume] in Serum or PlasmaOrdered By: Davonte Mendez on 02-05-2024 AST [Catalytic activity/Vol] 21 U/L Normal 13-39 [facility] Comment on above: Performed By: #### C MP, CBC ####[address] [place] [address] [facility] Automated basophil %Ordered By: Davonte Mendez on 02-05-2024 Basophils/100 WBC (Bld) 0.8 % Normal . [facility] Comment on above: Performed By: #### C MP, CBC ####[place] [id number] [facility] Automated basophil countOrde red By: Davonte Mendez on 02-05-2024 Basophils (Bld) [#/Vol] 0.1 10*3/uL Normal 0.0-0.2 [facility] Comment on above: Result Comment: PERF ORMED BY:[address] [place], [place] [phone] MEDICAL DIRECTORDAMIÁN BONNER M.D. Performed By: #### C MP, CBC ####[address] Automated blood monocyte cou ntOrdered By: Davonte Mendez on 02-05-2024 Monocytes (Bld) [#/Vol] 0.8 10*3/uL Normal 0.0-0.8 [facility] Comment on above: Performed By: #### C MP, CBC ####[address] Automated eosinophil %Ordere d By: Davonte Mendez on 02-05-2024 Eosinophils/100 WBC (Bld) 2.3 % Normal . [facility] Comment on above: Performed By: #### C MP, CBC ####[address] Automated eosinophil countOr dered By: Davonte Mendez on 02-05-2024 Eosinophils (Bld) [#/Vol] 0.2 10*3/uL Normal 0.0-0.45 [facility] Comment on above: Performed By: #### C MP, CBC ####[place] [id number] [facility] Automated monocyte %Ordered By: Davonte Mendez on 02-05-2024 Monocytes/100 WBC (Bld) 9.2 % Normal . [facility] Comment on above: Performed By: #### C MP, CBC ####[place] [id number] [facility] Automated neutrophil %Ordere d By: Davonte Mendez on 02-05-2024 Neutrophils/100 WBC (Bld) 74.2 % Normal . [facility] Comment on above: Performed By: #### C MP, CBC ####[place] [id number] [facility] Bilirubin.total [Mass/volume ] in Serum or PlasmaOrdered By: Davonte Mendez on 02-05-2024 Bilirubin [Mass/Vol] 0.6 mg/dL Normal 0.3-1.0 [facility] Comment on above: Performed By: #### C MP, CBC ####[address] abdomen pelvis w conon CT abdomen pelvis w con Normal [facility] Calcium [Mass/volume] in Ser um or PlasmaOrdered By: Davonte Mendez on 02-05-2024 Calcium [Mass/Vol] 9.9 mg/dL Normal 8.6-10.3 [facility] Comment on above: Performed By: #### C MP, CBC ####[place] [id number] [facility] Carbon dioxide, total [Moles /volume] in Serum or PlasmaOrdered By: Davonte Mendez on 02-05-2024 CO2 [Moles/Vol] 23.7 mmol/L Normal 21.0-31.0 [facility] Comment on above: Performed By: #### C MP, CBC ####[place] [id number] [facility] Chloride [Moles/volume] in S lian or PlasmaOrdered By: Davonte Mendez on 02-05-2024 Chloride [Moles/Vol] 91 mmol/L Low 98-107 [facility] Comment on above: Performed By: #### C MP, CBC ####[address] [place] [address] [facility] Complete Blood Count Auto Di ffon 02-05-2024 Mean Corpuscular HGB Conc 34.1 g/dL Normal 32.5-35.6 [facility] Comment on above: Performed By: #### C MP, CBC ####[place] [id number] [facility] Monocytes/100 WBC (Bld) 19.30 % Normal 0.00-20.00 [facility] Comment on above: Performed By: #### C MP, CBC ####[address] NRBC% 0.4 /100{WBC} Normal 0-0.5 [facility] Comment on above: Performed By: #### C MP, CBC ####[place] [id number] [facility] Comprehensive Metabolic Pane kamari 02-05-2024 Albumin [Mass/Vol] 4.7 g/dL Normal 3.5-5.7 [facility] Comment on above: Performed By: #### C MP, CBC ####[address] Creatinine Clr Calc Pharmacy 77.26 Normal [facility] Comment on above: Result Comment: PERF ORMED BY:[address] [place], [place] [phone] MEDICAL NOLBERTO BONNER M.D. Performed By: #### C MP, CBC ####[place] [id number] [facility] GFR/1.73 sq M.predicted MDRD (S/P/Bld) [Vol rate/Area] mL/min/{1.73_m2} Normal [facility] Comment on above: Performed By: #### C MP, CBC ####[place] [id number] [facility] Creatinine [Mass/volume] in Serum or PlasmaOrdered By: Davonte Mendez on 02-05-2024 Creatinine [Mass/Vol] 1.26 mg/dL Normal 0.70-1.30 [facility] Comment on above: Performed By: #### C MP, CBC ####[place] [id number] [facility] Erythrocyte distribution wid th [Ratio] by Automated countOrdered By: Davonte Mendez on 02-05-2024 Erythrocyte distribution width (RBC) [Ratio] 14.4 % Normal 12.0-14.8 [facility] Comment on above: Performed By: #### C MP, CBC ####[place] [id number] [facility] Erythrocytes [#/volume] in B lood by Automated countOrdered By: Davonte Mendez on 02-05-2024 RBC (Bld) [#/Vol] 6.11 10*6/uL High 3.90-5.60 [facility] Comment on above: Performed By: #### C MP, CBC ####[place] [id number] [facility] Glucose [Mass/volume] in Ser um or PlasmaOrdered By: Davonte Mendez on 02-05-2024 Glucose [Mass/Vol] 349 mg/dL High 70-100 [facility] Comment on above: ADA recommended refe rence rangeRandom Glucose Reference Range is dependent on time and content of last meal. Glucose of more than 200 mg/dL in a nonstressed, ambulatory subject supports the diagnosis of Diabetes Mellitus. Result Comment: [place] om Glucose Reference Range is dependent on time and content of last meal. Glucose of more than 200 mg/dL in a nonstressed, ambulatory subject supports the diagnosis of Diabetes Mellitus. ADA recommended reference range Performed By: #### C MP, CBC ####[place] [id number] [facility] Hematocrit [Volume Fraction] of Blood by Automated countOrdered By: Davonte Mendez on 02-05-2024 Hematocrit (Bld) [Volume fraction] 50.8 % High 38.8-50.0 [facility] Comment on above: Performed By: #### C MP, CBC ####[place] [id number] [facility] Hemoglobin [Mass/volume] in BloodOrdered By: Davonte Mendez on 02-05-2024 Hemoglobin (Bld) [Mass/Vol] 17.3 g/dL High 13.0-17.0 [facility] Comment on above: Performed By: #### C MP, CBC ####[address] Leukocytes [#/volume] correc darnell for nucleated erythrocytes in Blood by Automated counOrdered By: Davonte Mendez on 02-05-2024 WBC corrected for nucl RBC Auto (Bld) [#/Vol] 9.0 10*3/uL 4.1-10.5 [facility] Leukocytes [#/volume] in Blo od by Automated countOrdered By: Davonte Mendez on 02-05-2024 WBC (Bld) [#/Vol] 9.0 10*3/uL Normal 4.1-10.5 [facility] Comment on above: Performed By: #### C MP, CBC ####[address] Lymphocytes [#/volume] in Bl ood by Automated countOrdered By: Davonte Mendez on 02-05-2024 Lymphocytes (Bld) [#/Vol] 1.2 10*3/uL Normal 1.00-4.8 [facility] Comment on above: Performed By: #### C MP, CBC ####[address] Lymphocytes/100 leukocytes i n Blood by Automated countOrdered By: Davonte Mendez on 02-05-2024 Lymphocytes/100 WBC (Bld) 13.5 % Normal . [facility] Comment on above: Performed By: #### C MP, CBC ####[place] [id number] [facility] MCH [Entitic mass] by Automa darnell countOrdered By: Davonte Mendez on 02-05-2024 MCH (RBC) [Entitic mass] 28.3 pg Normal 27.5-35.2 [facility] Comment on above: Performed By: #### C MP, CBC ####[place] [id number] [address] MCHC Auto (RBC) [Mass/Vol]Or dered By: Davonte Mendez on 02-05-2024 MCHC (RBC) [Mass/Vol] 34.1 g/dL 32.5-35.6 [facility] MCV [Entitic volume] by Auto mated countOrdered By: Davonte Mendez on 02-05-2024 MCV (RBC) [Entitic vol] 83.2 fL Low 83.5-101 [facility] Comment on above: Performed By: #### C MP, CBC ####[address] Monocyte distribution width [Entitic volume] in Blood by AutomatedOrdered By: Davonte Mendez on 02-05-2024 Monocyte distribution width Auto (Bld) [Entitic vol] 19.30 % 0.00-20.00 [facility] Neutrophils [#/volume] in Bl ood by Automated countOrdered By: Davonte Mendez on 02-05-2024 Neutrophils (Bld) [#/Vol] 6.7 10*3/uL Normal 1.8-7.7 [facility] Comment on above: Performed By: #### C MP, CBC ####[address] No Panel InformationOrdered By: Davonte Mendez on 02-05-2024 Estimated GFR (CKD-EPI) > 60.0 mL/Min [facility] Creatinine Clearance (Chem 77.26 [facility] > 60.0 mL/Min [facility] 77.26 [facility] Nucleated erythrocytes [Pres ence] in Blood by Automated countOrdered By: Davonte Mendez on 02-05-2024 Nucleated RBC Auto Ql (Bld) 0.4 /100{WBC} 0-0.5 [facility] Platelet mean volume [Entiti c volume] in Blood by Automated countOrdered By: Davonte Mendez on 02-05-2024 Platelet mean volume (Bld) [Entitic vol] 9.1 fL Normal 6.6-10.1 [facility] Comment on above: Performed By: #### C MP, CBC ####[address] [address] [facility] Platelets [#/volume] in Bloo d by Automated countOrdered By: Davonte Mendez on 02-05-2024 Platelets (Bld) [#/Vol] 245 10*3/uL Normal 150-450 [facility] Comment on above: Performed By: #### C MP, CBC ####[place] [id number] [facility] Potassium [Moles/volume] in Serum or PlasmaOrdered By: Davonte Mendez on 02-05-2024 Potassium [Moles/Vol] 4.7 mmol/L Normal 3.5-5.1 [facility] Comment on above: Performed By: #### C MP, CBC ####[place] [id number] [facility] Protein [Mass/volume] in Ser um or PlasmaOrdered By: Davonte Mendez on 02-05-2024 Protein [Mass/Vol] 8.1 g/dL Normal 6.4-8.9 [facility] Comment on above: Performed By: #### C MP, CBC ####[place] [id number] [facility] Serum globulin measurement b y calculation (mass/volume)Ordered By: Davonte Mendez on 02-05-2024 Globulin (S) [Mass/Vol] 3.4 g/dL Normal [facility] Comment on above: Performed By: #### C MP, CBC ####[address] [address] [facility] Serum or plasma albumin/glob ulin mass ratioOrdered By: Davonte Mendez on 02-05-2024 Albumin/Globulin [Mass ratio] 1.4 {ratio} Normal [facility] Comment on above: Performed By: #### C MP, CBC ####[place] [id number] [facility] Serum or plasma anion gap de terminationOrdered By: Davonte Mendez on 02-05-2024 Anion gap [Moles/Vol] 20.0 mmol/L High 6.0-15.0 [facility] Comment on above: Performed By: #### C MP, CBC ####[place] [id number] [place] [address] [facility] Sodium [Moles/volume] in Ser um or PlasmaOrdered By: Davonte Mendez on 02-05-2024 Sodium [Moles/Vol] 130 mmol/L Low 136-145 [facility] Comment on above: Performed By: #### C MP, CBC ####[place] [id number] [place] [address] [facility] Urea nitrogen [Mass/volume] in Serum or PlasmaOrdered By: Davonte Mendez on 02-05-2024 Urea nitrogen [Mass/Vol] 29 mg/dL High 7-25 [facility] Comment on above: Performed By: #### C MP, CBC ####[place] [id number] [place] [address] [facility] A1C with Estimated Average G luon 01-05-2024 Glucose [Mass/Vol] 298 mg/dL Normal [facility] Comment on above: Result Comment: PERF ORMED BY:[address] [place], [place] [phone] MEDICAL NOLBERTO BONNER M.D. Performed By: #### A 1C WT eA ####[address] [address] [facility] Activated partial thrombopla stin time (aPTT) in platelet poor plasma by coagulation aOrdered By: Wiley Haynes on 01-05-2024 aPTT Coag (PPP) [Time] 33.1 s 25.1-36.5 [facility] Comment on above: A hematocrit value g reater than 55% may lead to inaccurate results in coagulation testing. Patients having hematocrit values >55% require a special collection tube for coagulation studies. Please contact the laboratory at [phone] for redraw instructions. Automated basophil %Ordered By: Wiley Haynes on 05-13-2024 Basophils/100 WBC (Bld) 0.8 % Normal . [facility] Comment on above: Performed By: #### H S TROP, CBC, PTT, LIPID, BMP, PT, CK, BNP ####[address] Automated basophil countOrde red By: Wiley Haynes on 01-05-2024 Basophils (Bld) [#/Vol] 0.1 10*3/uL Normal 0.0-0.2 [facility] Comment on above: Result Comment: PERF ORMED BY:[address] [place], [place] [phone] MEDICAL DIRECTORDAMIÁN BONNER M.D. Performed By: #### H S TROP, CBC, PTT, LIPID, BMP, PT, CK, BNP ####[address] Automated blood monocyte cou ntOrdered By: Wiley Haynes on 01-05-2024 Monocytes (Bld) [#/Vol] 0.7 10*3/uL Normal 0.0-0.8 [facility] Comment on above: Performed By: #### H S TROP, CBC, PTT, LIPID, BMP, PT, CK, BNP ####[address] Automated eosinophil %Ordere d By: Wiley Haynes on 01-05-2024 Eosinophils/100 WBC (Bld) 2.5 % Normal . [facility] Comment on above: Performed By: #### H S TROP, CBC, PTT, LIPID, BMP, PT, CK, BNP ####[address] Automated eosinophil countOr dered By: Wiley Haynes on 01-05-2024 Eosinophils (Bld) [#/Vol] 0.2 10*3/uL Normal 0.0-0.45 [facility] Comment on above: Performed By: #### H S TROP, CBC, PTT, LIPID, BMP, PT, CK, BNP ####[address] Automated monocyte %Ordered By: Wiley Haynes on 01-05-2024 Monocytes/100 WBC (Bld) 8.1 % Normal . [facility] Comment on above: Performed By: #### H S TROP, CBC, PTT, LIPID, BMP, PT, CK, BNP ####[place] [id number] [facility] Automated neutrophil %Ordere d By: Wiley Haynes on 01-05-2024 Neutrophils/100 WBC (Bld) 71.3 % Normal . [facility] Comment on above: Performed By: #### H S TROP, CBC, PTT, LIPID, BMP, PT, CK, BNP ####[place] [id number] [facility] BNP ser/plasOrdered By: Pio Haynes on 01-05-2024 Natriuretic peptide B (Bld) [Mass/Vol] 20.0 pg/mL Normal 5-100 [facility] Comment on above: Result Comment: PERF ORMED BY:[address] [place], [place] [id number] MEDICAL DIRECTORDAMIÁN BONNER M.D. Performed By: #### H S TROP, CBC, PTT, LIPID, BMP, PT, CK, BNP ####[address] [address] [facility] Basic Metabolic Panelon 12-23 Creatinine Clr Calc Pharmacy 105.82 Normal [facility] Comment on above: Result Comment: PERF ORMED BY:[address] VASQUEZ[address]juSAN [place], [place] [phone] MEDICAL DIRECTORDAMIÁN BONNER M.D. Performed By: #### H S TROP, CBC, PTT, LIPID, BMP, PT, CK, BNP ####[address] [address] [facility] GFR/1.73 sq M.predicted MDRD (S/P/Bld) [Vol rate/Area] mL/min/{1.73_m2} Normal [facility] Comment on above: Performed By: #### H S TROP, CBC, PTT, LIPID, BMP, PT, CK, BNP ####[place] [id number] [facility] BioFire Not Detectedon 01-04 BioFire Not Detected Not detected Normal Not Detecte [facility] Comment on above: Result Comment: This is a duplicate RP2.1 COVID (PCR) result to be used for statistical tracking purpose only.PERFORMED BY:[address] VASQUEZAnjuBREANA, [place] [phone] MEDICAL DIRECTORDAMIÁN BONNER M.D. Performed By: #### R NAMAN PANEL UPP., BIOFIRECOVNOTDE ####[address] COVID CepheidOrdered By: Jeaneth Haynes on 01-05-2024 SARS-CoV-2 (COVID-19) Ab IA Ql Negative Negative [facility] Comment on above: This is a duplicate Cepheid Xpert Xpress CoV-2/Flu/RSV Plus RNA by RT-PCR result to be used for statistical tracking purpose only. SARS-CoV-2 (COVID-19) RNA RAMIREZ+probe Ql (Unsp spec) Normal [facility] Comment on above: Performed By: #### C EPHEID NEG, COVID19 FLU RSV ####[place] [id number] [facility] SARS-CoV-2 (COVID-19) RNA RAMIREZ+probe Ql (Unsp spec) Negative Normal Negative [facility] Comment on above: Result Comment: This is a duplicate Cepheid Xpert Xpress CoV-2/Flu/RSV Plus RNA by RT-PCR result to be used for statistical tracking purpose only.PERFORMED BY:[address] [place], [place] [phone] MEDICAL DIRECTORDAMIÁN BONNER M.D. Performed By: #### C EPHEID NEG, COVID19 FLU RSV ####[place] [id number] [facility] COVID-19 Detected/Not Detect edOrdered By: Kaye Vance on 01-05-2024 SARS-CoV-2 (COVID-19) RNA RAMIREZ+non-probe Ql (Nph) Not detected Not Detecte [facility] Comment on above: This is a duplicate RP2.1 COVID (PCR) result to be used for statistical tracking purpose only. Calcium [Mass/volume] in Ser um or PlasmaOrdered By: Wiley Haynes on 01-05-2024 Calcium [Mass/Vol] 8.5 mg/dL Low 8.6-10.3 [facility] Comment on above: Performed By: #### H S TROP, CBC, PTT, LIPID, BMP, PT, CK, BNP ####[address] [place] [address] [facility] Capillary blood glucose marc urement by glucometer (mass/volume)Ordered By: Hayder George on 01-05-2024 Glucose [Mass/Vol] 263 mg/dL Normal [facility] Comment on above: Random Glucose Refer ence Range is dependent on time and content of last meal. Glucose of more than 200 mg/dL in a nonstressed, ambulatory subject supports the diagnosis of Diabetes Mellitus. Result Comment: [place] Glucose Reference Range is dependent on time and content of last meal. Glucose of more than 200 mg/dL in a nonstressed, ambulatory subject supports the diagnosis of Diabetes Mellitus.PERFORMED BY:[address] [place], [place] [phone] MEDICAL DIRECTORDAMIÁN BONNER M.D. Performed By: #### G HARITHA ####Point of Care testing, Carbon dioxide, total [Moles /volume] in Serum or PlasmaOrdered By: Wiley Haynes on 01-05-2024 CO2 [Moles/Vol] 21.7 mmol/L Normal 21.0-31.0 [facility] Comment on above: Performed By: #### H S TROP, CBC, PTT, LIPID, BMP, PT, CK, BNP ####[address] [place] [address] [facility] Chloride [Moles/volume] in S lian or PlasmaOrdered By: Wiley Haynes on 01-05-2024 Chloride [Moles/Vol] 100 mmol/L Normal 98-107 [facility] Comment on above: Performed By: #### H S TROP, CBC, PTT, LIPID, BMP, PT, CK, BNP ####[place] [address] Cholesterol [Mass/volume] in Serum or PlasmaOrdered By: Wiley Haynes on 01-05-2024 Cholesterol [Mass/Vol] 116 mg/dL Low 140-200 [facility] Comment on above: Chol less than 200 m g/dl low riskChol 201-239 mg/dl borderline riskChol 240 mg/dl and greater high risk Result Comment: Chol less than 200 mg/dl low risk Chol 201-239 mg/dl borderline risk Chol 240 mg/dl and greater high risk Performed By: #### H S TROP, CBC, PTT, LIPID, BMP, PT, CK, BNP ####[place] [place] [id number] [facility] Cholesterol in LDL Calc [Mas s/Vol]Ordered By: Wiley Haynes on 01-05-2024 Cholesterol in LDL [Mass/Vol] 31 mg/dL 0-100 [facility] Comment on above: LDL ATP III CLASSIFI CATIONLDL less than 100 mg/dL OptimalLDL 100-129 mg/dL Near or above optimalLDL 130-159 mg/dL Borderline highLDL 160-189 mg/dL HighLDL greater than 189 mg/dL Very high Cholesterol in VLDL Calc [Ma ss/Vol]Ordered By: Wiley Haynes on 01-05-2024 Cholesterol in VLDL [Mass/Vol] 54 mg/dL [facility] Complete Blood Count Auto Di ffon 01-05-2024 Mean Corpuscular HGB Conc 34.0 g/dL Normal 32.5-35.6 [facility] Comment on above: Performed By: #### H S TROP, CBC, PTT, LIPID, BMP, PT, CK, BNP ####[place] [id number] Monocytes/100 WBC (Bld) 19.98 % Normal 0.00-20.00 [facility] Comment on above: Performed By: #### H S TROP, CBC, PTT, LIPID, BMP, PT, CK, BNP ####[place] [address] NRBC% 0.2 /100{WBC} Normal 0-0.5 [facility] Comment on above: Performed By: #### H S TROP, CBC, PTT, LIPID, BMP, PT, CK, BNP ####[address] Creatine kinase [Enzymatic a ctivity/volume] in Serum or PlasmaOrdered By: Wiley Haynes on 01-05-2024 CK [Catalytic activity/Vol] 72 U/L Normal 30-223 [facility] Comment on above: Performed By: #### H S TROP, CBC, PTT, LIPID, BMP, PT, CK, BNP ####[address] Creatinine [Mass/volume] in Serum or PlasmaOrdered By: Wiley Haynes on 01-05-2024 Creatinine [Mass/Vol] 0.92 mg/dL Normal 0.70-1.30 [facility] Comment on above: Performed By: #### H S TROP, CBC, PTT, LIPID, BMP, PT, CK, BNP ####[address] ECG 12 lead ECGon 01-05-2024 ECG 12 lead ECG Normal [facility] ECH echo transthoracicon ECH echo transthoracic Normal [facility] Erythrocyte distribution wid th [Ratio] by Automated countOrdered By: Wiley Haynes on 01-05-2024 Erythrocyte distribution width (RBC) [Ratio] 14.0 % Normal 12.0-14.8 [facility] Comment on above: Performed By: #### H S TROP, CBC, PTT, LIPID, BMP, PT, CK, BNP ####[address] Erythrocytes [#/volume] in B lood by Automated countOrdered By: Wiley Haynes on 01-05-2024 RBC (Bld) [#/Vol] 5.17 10*6/uL Normal 3.90-5.60 [facility] Comment on above: Performed By: #### H S TROP, CBC, PTT, LIPID, BMP, PT, CK, BNP ####[facility] [address] [place] [address] [facility] Glucose Poct Glucometerson 0 01-05-2024 Glucose [Mass/Vol] 200 mg/dL Normal [facility] Comment on above: Result Comment: [place] om Glucose Reference Range is dependent on time and content of last meal. Glucose of more than 200 mg/dL in a nonstressed, ambulatory subject supports the diagnosis of Diabetes Mellitus.PERFORMED BY:[facility] [place], [place] [phone] MEDICAL DIRECTORDAMIÁN BONNER M.D. Performed By: #### G HARITHA ####Point of Care testing, Glucose [Mass/volume] in Ser um or PlasmaOrdered By: Wiley Haynes on 01-05-2024 Glucose [Mass/Vol] 244 mg/dL High 70-100 [facility] Comment on above: ADA recommended refe rence rangeRandom Glucose Reference Range is dependent on time and content of last meal. Glucose of more than 200 mg/dL in a nonstressed, ambulatory subject supports the diagnosis of Diabetes Mellitus. Result Comment: [place] om Glucose Reference Range is dependent on time and content of last meal. Glucose of more than 200 mg/dL in a nonstressed, ambulatory subject supports the diagnosis of Diabetes Mellitus. ADA recommended reference range Performed By: #### H S TROP, CBC, PTT, LIPID, BMP, PT, CK, BNP ####[facility] [address] [place] [address] [facility] Glucose mean value [Mass/vol ume] in Blood Estimated from glycated hemoglobinOrdered By: Hayder George on 01-05-2024 Average glucose Estimated from glycated hemoglobin (Bld) [Mass/Vol] 298 mg/dL [facility] Hematocrit [Volume Fraction] of Blood by Automated countOrdered By: Wiley Haynes on 01-05-2024 Hematocrit (Bld) [Volume fraction] 42.9 % Normal 38.8-50.0 [facility] Comment on above: Performed By: #### H S TROP, CBC, PTT, LIPID, BMP, PT, CK, BNP ####[facility] [place] [id number] [facility] Hemoglobin A1c percentageOrd ered By: Hayder George on 01-05-2024 HbA1c (Bld) [Mass fraction] 12.0 % High 4.3-5.6 [facility] Comment on above: Increased risk for d iabetes: 5.7 - 6.4diabetes: >6.4glycemic control for adults with diabetes: <7.0 Result Comment: Incr eased risk for diabetes: 5.7 - 6.4 diabetes: >6.4 glycemic control for adults with diabetes: <7.0 Performed By: #### [facility] ####[place] [address] [place] [id number] [facility] Hemoglobin [Mass/volume] in BloodOrdered By: Wiley Haynes on 01-05-2024 Hemoglobin (Bld) [Mass/Vol] 14.6 g/dL Normal 13.0-17.0 [facility] Comment on above: Performed By: #### H S TROP, CBC, PTT, LIPID, BMP, PT, CK, BNP ####[place] [address] [place] [id number] [facility] INR in Platelet poor plasma by Coagulation assayOrdered By: Wiley Haynes on 01-05-2024 INR Coag (PPP) [Relative time] 0.9 {INR} Normal [facility] Comment on above: INR Therapeutic Rang e A) Pre- and Peroperative OAT started two weeks before surgery. NOT HIP SURGERY: 1.5 - 2.5 HIP SURGERY: 2 - 3B) Primary and secondary prevention of venous THROMBOSIS: 2 - 3C) Active venous thrombosis, pulmonary embolismand prevention of recurrent venous thrombosis: 2 - 3D) Prevention of arterial thromboembolismincluding patients with mechanical heart valves: 3 - 4.5 Result Comment: INR Therapeutic Range A) Pre- and Peroperative OAT started two weeks before surgery. NOT HIP SURGERY: 1.5 - 2.5 HIP SURGERY: 2 - 3 B) Primary and secondary prevention of venous THROMBOSIS: 2 - 3 C) Active venous thrombosis, pulmonary embolism and prevention of recurrent venous thrombosis: 2 - 3 D) Prevention of arterial thromboembolism including patients with mechanical heart valves: 3 - 4.5 Performed By: #### H S TROP, CBC, PTT, LIPID, BMP, PT, CK, BNP ####[place] [address] Leukocytes [#/volume] correc darnell for nucleated erythrocytes in Blood by Automated counOrdered By: Wiley Haynes on 01-05-2024 WBC corrected for nucl RBC Auto (Bld) [#/Vol] 8.8 10*3/uL 4.1-10.5 [facility] Leukocytes [#/volume] in Blo od by Automated countOrdered By: Wiley Haynes on 01-05-2024 WBC (Bld) [#/Vol] 8.8 10*3/uL Normal 4.1-10.5 [facility] Comment on above: Performed By: #### H S TROP, CBC, PTT, LIPID, BMP, PT, CK, BNP ####[place] [address] Lipid Panelon 01-05-2024 LDL Cholesterol,Calculated 31 mg/dL Normal 0-100 [facility] Comment on above: Result Comment: LDL ATP III CLASSIFICATION LDL less than 100 mg/dL Optimal LDL 100-129 mg/dL Near or above optimal LDL 130-159 mg/dL Borderline high LDL 160-189 mg/dL High LDL greater than 189 mg/dL Very high Performed By: #### H S TROP, CBC, PTT, LIPID, BMP, PT, CK, BNP ####[place] [address] Triglyceride w/Reflex 271 mg/dL High 0-149 [facility] Comment on above: Result Comment: TRIG ATP III CLASSIFICATION TRIG less than 150 mg/dL Normal TRIG 150-199 mg/dL Borderline high TRIG 200-500 mg/dL High TRIG greater than 500 mg/dL Very high Standard traceable to the Center for Disease Conrtrol and Prevention (CDC) test method. Performed By: #### H S TROP, CBC, PTT, LIPID, BMP, PT, CK, BNP ####[place] [address] [place] [id number] [facility] VLDL CHOLESTEROL 54 mg/dL Normal [facility] Comment on above: Performed By: #### H S TROP, CBC, PTT, LIPID, BMP, PT, CK, BNP ####[address] Lymphocytes [#/volume] in Bl ood by Automated countOrdered By: Wiley Haynes on 01-05-2024 Lymphocytes (Bld) [#/Vol] 1.5 10*3/uL Normal 1.00-4.8 [facility] Comment on above: Performed By: #### H S TROP, CBC, PTT, LIPID, BMP, PT, CK, BNP ####[address] Lymphocytes/100 leukocytes i n Blood by Automated countOrdered By: Wiley Haynes on 01-05-2024 Lymphocytes/100 WBC (Bld) 17.3 % Normal . [facility] Comment on above: Performed By: #### H S TROP, CBC, PTT, LIPID, BMP, PT, CK, BNP ####[address] MCH [Entitic mass] by Automa darnell countOrdered By: Wiley Haynes on 01-05-2024 MCH (RBC) [Entitic mass] 28.2 pg Normal 27.5-35.2 [facility] Comment on above: Performed By: #### H S TROP, CBC, PTT, LIPID, BMP, PT, CK, BNP ####[address] MCHC Auto (RBC) [Mass/Vol]Or dered By: Wiley Haynes on 01-05-2024 MCHC (RBC) [Mass/Vol] 34.0 g/dL 32.5-35.6 [facility] MCV [Entitic volume] by Auto mated countOrdered By: Wiley Haynes on 01-05-2024 MCV (RBC) [Entitic vol] 82.9 fL Low 83.5-101 [facility] Comment on above: Performed By: #### H S TROP, CBC, PTT, LIPID, BMP, PT, CK, BNP ####[address] Monocyte distribution width [Entitic volume] in Blood by AutomatedOrdered By: Wiley Haynes on 01-05-2024 Monocyte distribution width Auto (Bld) [Entitic vol] 19.98 % 0.00-20.00 [facility] Neutrophils [#/volume] in Bl ood by Automated countOrdered By: Wiley Haynes on 01-05-2024 Neutrophils (Bld) [#/Vol] 6.3 10*3/uL Normal 1.8-7.7 [facility] Comment on above: Performed By: #### H S TROP, CBC, PTT, LIPID, BMP, PT, CK, BNP ####[facility] [address] [place] [id number] [facility] No Panel InformationOrdered By: Wiley Haynes on 01-05-2024 Estimated GFR (CKD-EPI) > 60.0 mL/Min [facility] Creatinine Clearance (Chem 105.82 [facility] > 60.0 mL/Min [facility] 105.82 [facility] Nucleated erythrocytes [Pres ence] in Blood by Automated countOrdered By: Wiley Haynes on 01-05-2024 Nucleated RBC Auto Ql (Bld) 0.2 /100{WBC} 0-0.5 [facility] Partial Thromboplastin Timeo n 01-05-2024 aPTT Coag (Bld) [Time] 33.1 s Normal 25.1-36.5 [facility] Comment on above: Result Comment: A he matocrit value greater than 55% may lead to inaccurate results in coagulation testing. Patients having hematocrit values >55% require a special collection tube for coagulation studies. Please contact the laboratory at [phone] for redraw instructions.PERFORMED BY:[address] [place], [place] [phone] MEDICAL DIRECTORDAMIÁN BONNER M.D. Performed By: #### H S TROP, CBC, PTT, LIPID, BMP, PT, CK, BNP ####[facility] [address] [place] [address] [facility] Platelet mean volume [Entiti c volume] in Blood by Automated countOrdered By: Wiley Haynes on 01-05-2024 Platelet mean volume (Bld) [Entitic vol] 9.4 fL Normal 6.6-10.1 [facility] Comment on above: Performed By: #### H S TROP, CBC, PTT, LIPID, BMP, PT, CK, BNP ####[place] [address] Platelets [#/volume] in Bloo d by Automated countOrdered By: Wiley Haynes on 01-05-2024 Platelets (Bld) [#/Vol] 206 10*3/uL Normal 150-450 [facility] Comment on above: Performed By: #### H S TROP, CBC, PTT, LIPID, BMP, PT, CK, BNP ####[place] [address] Potassium [Moles/volume] in Serum or PlasmaOrdered By: Wiley Haynes on 01-05-2024 Potassium [Moles/Vol] 3.8 mmol/L Normal 3.5-5.1 [facility] Comment on above: Performed By: #### H S TROP, CBC, PTT, LIPID, BMP, PT, CK, BNP ####[address] Prothrombin time (PT)Ordered By: Wiley Haynes on 01-05-2024 PT Coag (PPP) [Time] 10.3 s Normal 9.0-12.9 [facility] Comment on above: A hematocrit value g reater than 55% may lead to inaccurate results in coagulation testing. Patients having hematocrit values >55% require a special collection tube for coagulation studies. Please contact the laboratory at [phone] for redraw instructions. Result Comment: A he matocrit value greater than 55% may lead to inaccurate results in coagulation testing. Patients having hematocrit values >55% require a special collection tube for coagulation studies. Please contact the laboratory at [phone] for redraw instructions. Performed By: #### H S TROP, CBC, PTT, LIPID, BMP, PT, CK, BNP ####[address] Respiratory (Upper) Panel, P CRon 01-05-2024 Respiratory (Upper) Panel, PCR Normal [facility] Comment on above: Performed By: #### R NAMAN PANEL UPP., BIOFIRECOVNOTDE ####[place] [address] [place] [id number] [facility] Respiratory pathogens DNA an d RNA panel - Nasopharynx by RAMIREZ with non-probe detectionOrdered By: Kaye Vance on 01-05-2024 Respiratory pathogens DNA and RNA panel RAMIREZ+non-probe (Nph) [facility] Serum or plasma anion gap de terminationOrdered By: Wiley Haynes on 01-05-2024 Anion gap [Moles/Vol] 16.1 mmol/L High 6.0-15.0 [facility] Comment on above: Performed By: #### H S TROP, CBC, PTT, LIPID, BMP, PT, CK, BNP ####[place] [address] [place] [id number] [facility] Serum or plasma high density lipoprotein (HDL) cholesterol measurementOrdered By: Wiley Haynes on 01-05-2024 Cholesterol in HDL [Mass/Vol] 31 mg/dL Normal 23-92 [facility] Comment on above: HDL CHOL ATP-III CLA SSIFICATION Cardiovascular RiskHDL > or equal to 60 mg/dL LOWHDL < 40 mg/dL HIGH Result Comment: HDL CHOL ATP-III CLASSIFICATION Cardiovascular Risk HDL > or equal to 60 mg/dL LOW HDL < 40 mg/dL HIGH Performed By: #### H S TROP, CBC, PTT, LIPID, BMP, PT, CK, BNP ####[place] [address] [place] [id number] [facility] Serum or plasma total choles terol/high density lipoprotein (HDL) cholesterol mass ratOrdered By: Wiley Haynes on 01-05-2024 Cholesterol.total/Lois sterol in HDL [Mass ratio] 3.7 {ratio} Normal <5.0 [facility] Comment on above: Result Comment: PERF ORMED BY:[address] [place], [place] [phone] MEDICAL DIRECTORDAMIÁN BONNER M.D. Performed By: #### H S TROP, CBC, PTT, LIPID, BMP, PT, CK, BNP ####[address] [address] [facility] Sodium [Moles/volume] in Ser um or PlasmaOrdered By: Wiley Haynes on 01-05-2024 Sodium [Moles/Vol] 134 mmol/L Low 136-145 [facility] Comment on above: Performed By: #### H S TROP, CBC, PTT, LIPID, BMP, PT, CK, BNP ####[address] [address] [facility] Triglyceride [Mass/volume] i n Serum or PlasmaOrdered By: Wiley Haynes on 01-05-2024 Triglyceride [Mass/Vol] 271 mg/dL High 0-149 [facility] Comment on above: TRIG ATP III CLASSIF ICATIONTRIG less than 150 mg/dL NormalTRIG 150-199 mg/dL Borderline highTRIG 200-500 mg/dL High TRIG greater than 500 mg/dL Very highStandard traceable to the Center for Disease Conrtrol and Prevention (CDC) test method. Troponin I High Sensitivityo n 01-05-2024 Troponin I High Sensitivity 3.4 pg/mL Normal 0.0-20.0 [facility] Comment on above: Result Comment: PERF ORMED BY:[address] [place], [place] [phone] MEDICAL DIRECTORDAMIÁN BONNER M.D. Performed By: #### H S TROP ####[address] [address] [facility] Troponin I High Sensitivity 3.0 pg/mL Normal 0.0-20.0 [facility] Comment on above: Result Comment: PERF ORMED BY:[address] [place], [place] [phone] MEDICAL DIRECTORDAMIÁN BONNER M.D. Performed By: #### H S TROP ####[address] [address] [facility] Troponin I High Sensitivity 3.6 pg/mL Normal 0.0-20.0 [facility] Comment on above: Result Comment: PERF ORMED BY:[facility] [place], [place] [phone] MEDICAL DIRECTORDAMIÁN BONNER M.D. Performed By: #### H S TROP, CBC, PTT, LIPID, BMP, PT, CK, BNP ####[facility] [place] [address] [facility] Troponin I.cardiac [Mass/vol ume] in Serum or Plasma by Detection limit <= 0.01 ng/Ordered By: Nelda Mata on 01-05-2024 Troponin I.cardiac DL <= 0.01 ng/mL [Mass/Vol] 3.4 pg/mL 0.0-20.0 [facility] Troponin I.cardiac [Mass/vol ume] in Serum or Plasma by Detection limit <= 0.01 ng/Ordered By: Wiley Haynes on 01-05-2024 Troponin I.cardiac DL <= 0.01 ng/mL [Mass/Vol] 3.6 pg/mL 0.0-20.0 [facility] Urea nitrogen [Mass/volume] in Serum or PlasmaOrdered By: Wiley Haynes on 01-05-2024 Urea nitrogen [Mass/Vol] 19 mg/dL Normal 7-25 [facility] Comment on above: Performed By: #### H S TROP, CBC, PTT, LIPID, BMP, PT, CK, BNP ####[facility] [place] [address] [facility] XR chest 2V*on 01-05-2024 XR chest 2V* Normal [facility] CT cervical spine wo conon 0 12-27-2023 CT cervical spine wo con Normal [facility] XR knee LT 4V*on 12-27-2023 XR knee LT 4V* Normal [facility] Capillary blood glucose marc urement by glucometer (mass/volume)Ordered By: Nigel Rdz on 12-15-2023 Glucose [Mass/Vol] 314 mg/dL Normal [facility] Comment on above: Random Glucose Refer ence Range is dependent on time and content of last meal. Glucose of more than 200 mg/dL in a nonstressed, ambulatory subject supports the diagnosis of Diabetes Mellitus. Result Comment: [place] om Glucose Reference Range is dependent on time and content of last meal. Glucose of more than 200 mg/dL in a nonstressed, ambulatory subject supports the diagnosis of Diabetes Mellitus.PERFORMED BY:[address] [place], [place] [phone] MEDICAL DIRECTORDAMIÁN BONNER M.D. Performed By: #### G LULS ####Point of Care testing, Glucose Poct Glucometerson 0 12-15-2023 Glucose [Mass/Vol] 280 mg/dL Normal [facility] Comment on above: Result Comment: [place] om Glucose Reference Range is dependent on time and content of last meal. Glucose of more than 200 mg/dL in a nonstressed, ambulatory subject supports the diagnosis of Diabetes Mellitus.PERFORMED BY:[address] [place], [place] [phone] MEDICAL DIRECTORDAMIÁN BONNER M.D. Performed By: #### G LULS ####Point of Care testing, Commemt1 Glu2: Cleaned Meter Normal [facility] Comment on above: Result Comment: PERF ORMED BY:[address] [place], [place] [phone] MEDICAL NOLBERTO BONNER M.D. Performed By: #### G LULS ####Point of Care testing, Glucose [Mass/Vol] 183 mg/dL Normal [facility] Comment on above: Result Comment: [place] om Glucose Reference Range is dependent on time and content of last meal. Glucose of more than 200 mg/dL in a nonstressed, ambulatory subject supports the diagnosis of Diabetes Mellitus. Performed By: #### G LULS ####Point of Care testing, Glucose [Mass/Vol] 92 mg/dL Normal [facility] Comment on above: Result Comment: [place] om Glucose Reference Range is dependent on time and content of last meal. Glucose of more than 200 mg/dL in a nonstressed, ambulatory subject supports the diagnosis of Diabetes Mellitus.PERFORMED BY:[address] EDILMAJlAnjuBREAN[place], [place] [phone] MEDICAL DIRECTORJIANLAN SUN M.D. Performed By: #### G LULS ####Point of Care testing, No Panel InformationOrdered By: Nigel Rdz on 12-15-2023 Bedside Glucose Comment Glu2: cleaned meter [facility] Glucose Poct Glucometerson 0 12-14-2023 Commemt1 Glu2: Cleaned Meter Normal [facility] Comment on above: Result Comment: PERF ORMED BY:[address] [place], [place] [phone] MEDICAL DIRECTORDAMIÁN BONNER M.D. Performed By: #### G LULS ####Point of Care testing, Glucose [Mass/Vol] 312 mg/dL Normal [facility] Comment on above: Result Comment: [place] om Glucose Reference Range is dependent on time and content of last meal. Glucose of more than 200 mg/dL in a nonstressed, ambulatory subject supports the diagnosis of Diabetes Mellitus. Performed By: #### G LULS ####Point of Care testing, Glucose [Mass/Vol] 184 mg/dL Normal [facility] Comment on above: Result Comment: [place] om Glucose Reference Range is dependent on time and content of last meal. Glucose of more than 200 mg/dL in a nonstressed, ambulatory subject supports the diagnosis of Diabetes Mellitus.PERFORMED BY:[address] [place], [place] [phone] MEDICAL NOLBERTO BONNER M.D. Performed By: #### G LULS ####Point of Care testing, Glucose [Mass/Vol] 248 mg/dL Normal [facility] Comment on above: Result Comment: [place] om Glucose Reference Range is dependent on time and content of last meal. Glucose of more than 200 mg/dL in a nonstressed, ambulatory subject supports the diagnosis of Diabetes Mellitus.PERFORMED BY:[address] [place], [place] [phone] MEDICAL NOLBERTO BONNER M.D. Performed By: #### G LULS ####Point of Care testing, Commemt1 Glu2: Cleaned Meter Normal [facility] Comment on above: Result Comment: PERF ORMED BY:[address] [address] [place] VÁ[place]QUEZROSEV[place], [place] [phone] MEDICAL DIRECTORDAMIÁN BONNER M.D. Performed By: #### G LULS ####Point of Care testing, Glucose [Mass/Vol] 206 mg/dL Normal [facility] Comment on above: Result Comment: [place] om Glucose Reference Range is dependent on time and content of last meal. Glucose of more than 200 mg/dL in a nonstressed, ambulatory subject supports the diagnosis of Diabetes Mellitus. Performed By: #### G LULS ####Point of Care testing, Commemt1 Glu2: Cleaned Meter Normal [facility] Comment on above: Result Comment: PERF ORMED BY:[address] VÁZQUEZROSEVILLE, [place] [phone] MEDICAL DIRECTORDAMIÁN BONNER M.D. Performed By: #### G LULS ####Point of Care testing, Glucose [Mass/Vol] 199 mg/dL Normal [facility] Comment on above: Result Comment: [place] Glucose Reference Range is dependent on time and content of last meal. Glucose of more than 200 mg/dL in a nonstressed, ambulatory subject supports the diagnosis of Diabetes Mellitus. Performed By: #### G LULS ####Point of Care testing, Glucose Poct Glucometerson 0 12-13-2023 Commemt1 Glu2: Cleaned Meter Normal [facility] Comment on above: Result Comment: PERF ORMED BY:[address] [place], [place] [phone] MEDICAL NOLBERTO BONNER M.D. Performed By: #### G LULS ####Point of Care testing, Glucose [Mass/Vol] 326 mg/dL Normal [facility] Comment on above: Result Comment: [place] Glucose Reference Range is dependent on time and content of last meal. Glucose of more than 200 mg/dL in a nonstressed, ambulatory subject supports the diagnosis of Diabetes Mellitus. Performed By: #### G LULS ####Point of Care testing, Glucose [Mass/Vol] 313 mg/dL Normal [facility] Comment on above: Result Comment: [place] om Glucose Reference Range is dependent on time and content of last meal. Glucose of more than 200 mg/dL in a nonstressed, ambulatory subject supports the diagnosis of Diabetes Mellitus.PERFORMED BY:[address] [place], [place] [phone] MEDICAL DIRECTORDAMIÁN BONNER M.D. Performed By: #### G LULS ####Point of Care testing, Glucose [Mass/Vol] 356 mg/dL Normal [facility] Comment on above: Result Comment: [facility] Glucose Reference Range is dependent on time and content of last meal. Glucose of more than 200 mg/dL in a nonstressed, ambulatory subject supports the diagnosis of Diabetes Mellitus.PERFORMED BY:[address] [place], [place] [phone] MEDICAL NOLBERTO BONNER M.D. Performed By: #### G LULS ####Point of Care testing, Commemt1 Glu2: Cleaned Meter Normal [facility] Comment on above: Result Comment: PERF ORMED BY:[address] [address] VASQUEZAnjuBREANAROSEV[place], [place] [phone] MEDICAL NOLBERTO BONNER M.D. Performed By: #### G LULS ####Point of Care testing, Glucose [Mass/Vol] 197 mg/dL Normal [facility] Comment on above: Result Comment: [place] Glucose Reference Range is dependent on time and content of last meal. Glucose of more than 200 mg/dL in a nonstressed, ambulatory subject supports the diagnosis of Diabetes Mellitus. Performed By: #### G LULS ####Point of Care testing, Commemt1 Glu2: Cleaned Meter Normal [facility] Comment on above: Result Comment: PERF ORMED BY:[address] [address] [place] [place], [place] [phone] MEDICAL NOLBERTO BONNER M.D. Performed By: #### G LULS ####Point of Care testing, Glucose [Mass/Vol] 140 mg/dL Normal [facility] Comment on above: Result Comment: [place] Glucose Reference Range is dependent on time and content of last meal. Glucose of more than 200 mg/dL in a nonstressed, ambulatory subject supports the diagnosis of Diabetes Mellitus. Performed By: #### G LULS ####Point of Care testing, XR knee LT 2Von 12-13-2023 XR knee LT 2V Normal [facility] Cholesterol [Mass/volume] in Serum or PlasmaOrdered By: Nigel Rdz on 12-12-2023 Cholesterol [Mass/Vol] 183 mg/dL Normal 140-200 [facility] Comment on above: Chol less than 200 m g/dl low riskChol 201-239 mg/dl borderline riskChol 240 mg/dl and greater high risk Result Comment: Chol less than 200 mg/dl low risk Chol 201-239 mg/dl borderline risk Chol 240 mg/dl and greater high risk Performed By: #### V [id number], LIPID, TSH3 wRFLX ####[facility] [place] [address] [facility] Cholesterol in LDL Calc [Mas s/Vol]Ordered By: Nigel Rdz on 12-12-2023 Cholesterol in LDL [Mass/Vol] 86 mg/dL 0-100 [facility] Comment on above: LDL ATP III CLASSIFI CATIONLDL less than 100 mg/dL OptimalLDL 100-129 mg/dL Near or above optimalLDL 130-159 mg/dL Borderline highLDL 160-189 mg/dL HighLDL greater than 189 mg/dL Very high Cholesterol in VLDL Calc [Ma ss/Vol]Ordered By: Nigel Rdz on 12-12-2023 Cholesterol in VLDL [Mass/Vol] 52 mg/dL [facility] Glucose Poct Glucometerson 0 12-12-2023 Glucose [Mass/Vol] 202 mg/dL Normal [facility] Comment on above: Result Comment: [place] Glucose Reference Range is dependent on time and content of last meal. Glucose of more than 200 mg/dL in a nonstressed, ambulatory subject supports the diagnosis of Diabetes Mellitus.PERFORMED BY:[address] [place], [place] [phone] MEDICAL DIRECTORDAMIÁN BONNER M.D. Performed By: #### G LULS ####Point of Care testing, Glucose [Mass/Vol] 168 mg/dL Normal [facility] Comment on above: Result Comment: [place] Glucose Reference Range is dependent on time and content of last meal. Glucose of more than 200 mg/dL in a nonstressed, ambulatory subject supports the diagnosis of Diabetes Mellitus.PERFORMED BY:[address] VASQUEZAnjuBREANA, [place] [phone] MEDICAL DIRECTORDAMIÁN BONNER M.D. Performed By: #### G LULS ####Point of Care testing, Commemt1 Glu2: Cleaned Meter Normal [facility] Comment on above: Result Comment: PERF ORMED BY:[address] EDILMAJlAnjuBREANA, [place] [phone] MEDICAL DIRECTORDAMIÁN BONNER M.D. Performed By: #### G LULS ####Point of Care testing, Glucose [Mass/Vol] 328 mg/dL Normal [facility] Comment on above: Result Comment: [place] Glucose Reference Range is dependent on time and content of last meal. Glucose of more than 200 mg/dL in a nonstressed, ambulatory subject supports the diagnosis of Diabetes Mellitus. Performed By: #### G LULS ####Point of Care testing, Commemt1 Glu2: Cleaned Meter Normal [facility] Comment on above: Result Comment: PERF ORMED BY:[address] [place]ju[place], [place] [phone] MEDICAL DIRECTORDAMIÁN BONNER M.D. Performed By: #### G LULS ####Point of Care testing, Glucose [Mass/Vol] 250 mg/dL Normal [facility] Comment on above: Result Comment: [place] Glucose Reference Range is dependent on time and content of last meal. Glucose of more than 200 mg/dL in a nonstressed, ambulatory subject supports the diagnosis of Diabetes Mellitus. Performed By: #### G LULS ####Point of Care testing, Commemt1 Glu2: Cleaned Meter Normal [facility] Comment on above: Result Comment: PERF ORMED BY:[address] [place], [place] [phone] MEDICAL DIRECTORDAMIÁN BONNER M.D. Performed By: #### G LULS ####Point of Care testing, Glucose [Mass/Vol] 254 mg/dL Normal [facility] Comment on above: Result Comment: [place] Glucose Reference Range is dependent on time and content of last meal. Glucose of more than 200 mg/dL in a nonstressed, ambulatory subject supports the diagnosis of Diabetes Mellitus. Performed By: #### G LULS ####Point of Care testing, Lipid Panelon 12-12-2023 LDL Cholesterol,Calculated 86 mg/dL Normal 0-100 [facility] Comment on above: Result Comment: LDL ATP III CLASSIFICATION LDL less than 100 mg/dL Optimal LDL 100-129 mg/dL Near or above optimal LDL 130-159 mg/dL Borderline high LDL 160-189 mg/dL High LDL greater than 189 mg/dL Very high Performed By: #### V [id number], LIPID, TSH3 wRFLX ####[address] [place] [address] [facility] Triglyceride w/Reflex 263 mg/dL High 0-149 [facility] Comment on above: Result Comment: TRIG ATP III CLASSIFICATION TRIG less than 150 mg/dL Normal TRIG 150-199 mg/dL Borderline high TRIG 200-500 mg/dL High TRIG greater than 500 mg/dL Very high Standard traceable to the Center for Disease Conrtrol and Prevention (CDC) test method. Performed By: #### V [id number], LIPID, TSH3 wRFLX ####[facility] [address] [place] [address] [facility] VLDL CHOLESTEROL 52 mg/dL Normal [facility] Comment on above: Performed By: #### V [id number], LIPID, TSH3 wRFLX ####[facility] [place] [address] [facility] Serum or plasma high density lipoprotein (HDL) cholesterol measurementOrdered By: Nigel Rdz on 12-12-2023 Cholesterol in HDL [Mass/Vol] 44 mg/dL Normal 23-92 [facility] Comment on above: HDL CHOL ATP-III CLA SSIFICATION Cardiovascular RiskHDL > or equal to 60 mg/dL LOWHDL < 40 mg/dL HIGH Result Comment: HDL CHOL ATP-III CLASSIFICATION Cardiovascular Risk HDL > or equal to 60 mg/dL LOW HDL < 40 mg/dL HIGH Performed By: #### V [id number], LIPID, TSH3 wRFLX ####[place] [address] Serum or plasma total choles terol/high density lipoprotein (HDL) cholesterol mass ratOrdered By: Nigel Rdz on 12-12-2023 Cholesterol.total/Lois sterol in HDL [Mass ratio] 4.2 {ratio} Normal <5.0 [facility] Comment on above: Performed By: #### V [id number], LIPID, TSH3 wRFLX ####[facility] [address] Thyroid Stim Hormone w/Rflxo n 12-12-2023 Thyroid Stim Hormone w/Rflx 1.19 u[iU]/mL Normal 0.45-5.33 [facility] Comment on above: Performed By: #### V [id number], LIPID, TSH3 wRFLX ####[facility] [address] Thyrotropin [Units/volume] i n Serum or PlasmaOrdered By: Nigel Rdz on 12-12-2023 TSH Qn 1.19 m[IU]/L 0.45-5.33 [facility] Triglyceride [Mass/volume] i n Serum or PlasmaOrdered By: Nigel Rdz on 12-12-2023 Triglyceride [Mass/Vol] 263 mg/dL High 0-149 [facility] Comment on above: TRIG ATP III CLASSIF ICATIONTRIG less than 150 mg/dL NormalTRIG 150-199 mg/dL Borderline highTRIG 200-500 mg/dL High TRIG greater than 500 mg/dL Very highStandard traceable to the Center for Disease Conrtrol and Prevention (CDC) test method. Vitamin D 25 Hydroxy Totalon 12-12-2023 Vitamin D 25 Hydroxy Total 35.1 ng/mL Normal 30-100 [facility] Comment on above: Result Comment: [place] MIN D STATUS 25([place])VITAMIN D RANGE (ng/mL) Deficient <20 Insufficient 20 to <30 Sufficient 30 to 100 Reference: Kassi Tomas, Diane HADDAD, et al. Evaluation,treatment, and prevention of vitamin D deficiency; an Endocrine Society clinical practice guideline. JCEM. 2010; 96(7):191-.PERFORMED BY:[address] [place], [place] [phone] MEDICAL DIRECTORDAMIÁN BONNER M.D. Performed By: #### V [id number], LIPID, TSH3 wRFLX ####[address] [place] [address] [facility] Vitamin D+Metabolites [Mass/ volume] in Serum or PlasmaOrdered By: Nigel Rdz on 12-12-2023 Vitamin D+Metabolites [Mass/Vol] 35.1 ng/mL 30-100 [facility] Comment on above: VITAMIN D STATUS 25( [place])VITAMIN D RANGE (ng/mL) Deficient <20 Insufficient 20 to <30Sufficient 30 to 100Reference: Kassi Tomas, Diane HADDAD, et al. Evaluation,treatment, and prevention of vitamin D deficiency; an Endocrine Society clinical practice guideline. JCEM. 2010; 96(7):191-. Basic Metabolic Panelon 11-23 Creatinine Clr Calc Pharmacy 126.64 Normal [facility] Comment on above: Order Comment: DRAW MORNING LABS AT 0600 PER MAURICIO HERNANDEZ 0428. Performed By: #### NASH Shaffer BMP ####[address] [address] [facility] GFR/1.73 sq M.predicted MDRD (S/P/Bld) [Vol rate/Area] mL/min/{1.73_m2} Normal [facility] Comment on above: Order Comment: DRAW MORNING LABS AT 0600 PER MAURICIO HERNANDEZ 0428. Performed By: #### M NASH Basurto BMP ####[facility] [address] [place] [address] [facility] Calcium [Mass/volume] in Ser um or PlasmaOrdered By: Ramón Mcgarry on 12-11-2023 Calcium [Mass/Vol] 8.6 mg/dL Normal 8.6-10.3 [facility] Comment on above: Order Comment: DRAW MORNING LABS AT 0600 PER MAURICIO STRINGER. SMB 0428. Performed By: #### M NASH Basurto BMP ####[facility] [address] [place] [address] [facility] Capillary blood glucose marc urement by glucometer (mass/volume)Ordered By: Alix Neff on 12-11-2023 Glucose [Mass/Vol] 179 mg/dL Normal [facility] Comment on above: Random Glucose Refer ence Range is dependent on time and content of last meal. Glucose of more than 200 mg/dL in a nonstressed, ambulatory subject supports the diagnosis of Diabetes Mellitus. Result Comment: [place] om Glucose Reference Range is dependent on time and content of last meal. Glucose of more than 200 mg/dL in a nonstressed, ambulatory subject supports the diagnosis of Diabetes Mellitus. Performed By: #### G CAREYLS ####Point of Care testing, Capillary blood glucose marc urement by glucometer (mass/volume)Ordered By: Ramón Mcgarry on 12-11-2023 Glucose [Mass/Vol] 377 mg/dL Normal [facility] Comment on above: Random Glucose Refer ence Range is dependent on time and content of last meal. Glucose of more than 200 mg/dL in a nonstressed, ambulatory subject supports the diagnosis of Diabetes Mellitus. Result Comment: [place] om Glucose Reference Range is dependent on time and content of last meal. Glucose of more than 200 mg/dL in a nonstressed, ambulatory subject supports the diagnosis of Diabetes Mellitus. Performed By: #### G LULS ####Point of Care testing, Carbon dioxide, total [Moles /volume] in Serum or PlasmaOrdered By: Ramón Mcgarry on 12-11-2023 CO2 [Moles/Vol] 28.0 mmol/L Normal 21.0-31.0 [facility] Comment on above: Order Comment: DRAW MORNING LABS AT 0600 PER MAURICIO HERNANDEZ 0428. Performed By: #### NASH Shaffer BMP ####[facility] [address] [place] [address] [facility] Chloride [Moles/volume] in S lian or PlasmaOrdered By: Ramón Mcgarry on 12-11-2023 Chloride [Moles/Vol] 104 mmol/L Normal 98-107 [facility] Comment on above: Order Comment: DRAW MORNING LABS AT 0600 PER MAURICIO HERNANDEZ 0428. Performed By: #### NASH Shaffer BMP ####[facility] [address] [place] [address] [facility] Creatinine [Mass/volume] in Serum or PlasmaOrdered By: Ramón Mcgarry on 12-11-2023 Creatinine [Mass/Vol] 0.79 mg/dL Normal 0.70-1.30 [facility] Comment on above: Order Comment: DRAW MORNING LABS AT 0600 PER MAURICIO HERNANDEZ 0428. Performed By: #### NASH Shaffer BMP ####[facility] [address] [place] [address] [facility] Glucose Poct Glucometerson 0 12-11-2023 Commemt1 Glu2: Cleaned Meter Normal [facility] Comment on above: Result Comment: PERF ORMED BY:[address] [place], [place] [phone] MEDICAL DIRECTORDAMIÁN BONNER M.D. Performed By: #### G LULS ####Point of Care testing, Glucose [Mass/Vol] 231 mg/dL Normal [facility] Comment on above: Result Comment: [place] Glucose Reference Range is dependent on time and content of last meal. Glucose of more than 200 mg/dL in a nonstressed, ambulatory subject supports the diagnosis of Diabetes Mellitus. Performed By: #### G LULS ####Point of Care testing, Glucose [Mass/Vol] 139 mg/dL Normal [facility] Comment on above: Result Comment: [place] Glucose Reference Range is dependent on time and content of last meal. Glucose of more than 200 mg/dL in a nonstressed, ambulatory subject supports the diagnosis of Diabetes Mellitus.PERFORMED BY:[address] [place], [place] [phone] MEDICAL DIRECTORDAMIÁN BONNER M.D. Performed By: #### G LULS ####Point of Care testing, Commemt1 Glu2: Cleaned Meter Normal [facility] Comment on above: Performed By: #### G LULS ####Point of Care testing, Commemt2 SLIDING SCALE COVERA Normal [facility] Comment on above: Result Comment: PERF ORMED BY:[address] [place]ASQUEZAnjuBREANA, [place] [phone] MEDICAL DIRECTORDAMIÁN BONNER M.D. Performed By: #### G LULS ####Point of Care testing, Commemt1 Glu2: Cleaned Meter Normal [facility] Comment on above: Performed By: #### G LULS ####Point of Care testing, Commemt2 SLIDING SCALE COVERA Normal [facility] Comment on above: Result Comment: PERF ORMED BY:[address]ASQUEZAnjuBREANA, [place] [phone] MEDICAL DIRECTORDAMIÁN BONNER M.D. Performed By: #### G LULS ####Point of Care testing, Glucose [Mass/Vol] 185 mg/dL Normal [facility] Comment on above: Result Comment: [facility] Glucose Reference Range is dependent on time and content of last meal. Glucose of more than 200 mg/dL in a nonstressed, ambulatory subject supports the diagnosis of Diabetes Mellitus. Performed By: #### G LULS ####Point of Care testing, Commemt1 Glu2: Cleaned Meter Normal [facility] Comment on above: Result Comment: PERF ORMED BY:[address] [place]QUE[place], [place] [phone] MEDICAL DIRECTORDAMIÁN BONNER M.D. Performed By: #### G LULS ####Point of Care testing, Glucose [Mass/volume] in Ser um or PlasmaOrdered By: Ramón Mcgarry on 12-11-2023 Glucose [Mass/Vol] 179 mg/dL Significant change up 70-100 [facility] Comment on above: Delta: 373 on DA recommended reference rangeRandom Glucose Reference Range is dependent on time and content of last meal. Glucose of more than 200 mg/dL in a nonstressed, ambulatory subject supports the diagnosis of Diabetes Mellitus. Order Comment: DRAW MORNING LABS AT 0600 PER MAURICIO ARTB 0428. Result Comment: [place] om Glucose Reference Range is dependent on time and content of last meal. Glucose of more than 200 mg/dL in a nonstressed, ambulatory subject supports the diagnosis of Diabetes Mellitus. ADA recommended reference range Performed By: #### NASH Shaffer BMP ####[facility] [place] [address] [facility] Magnesium [Mass/volume] in S lian or PlasmaOrdered By: Ramón Mcgarry on 12-11-2023 Magnesium [Mass/Vol] 2.2 mg/dL Significant change down 1.9-2.7 [facility] Comment on above: Delta: 0.9 on Order Comment: DRAW MORNING LABS AT 0600 PER MAURICIO GONZALEZ SMB 0428. Result Comment: PERF ORMED BY:[address] [place], [place] [phone] MEDICAL DIRECTORDAMIÁN BONNER M.D. Performed By: #### NASH Shaffer BMP ####[facility] [place] [address] [facility] No Panel InformationOrdered By: Alix Neff on 12-11-2023 Bedside Glucose #2 Comment Sliding scale covera [facility] Bedside Glucose Comment Glu2: cleaned meter [facility] No Panel InformationOrdered By: Ramón Mcgarry on 12-11-2023 Estimated GFR (CKD-EPI) > 60.0 mL/Min [facility] Creatinine Clearance (Chem 126.64 [facility] Bedside Glucose Comment Glu2: cleaned meter [facility] Phosphate [Mass/volume] in S lian or PlasmaOrdered By: Alix Neff on 12-11-2023 Phosphate [Mass/Vol] 3.6 mg/dL Normal 2.5-4.5 [facility] Comment on above: Order Comment: DRAW MORNING LABS AT 0600 PER MAURICIO HERNANDEZ 0428. Performed By: #### NASH Shaffer BMP ####[address] [address] [facility] Potassium [Moles/volume] in Serum or PlasmaOrdered By: Ramón Mcgarry on 12-11-2023 Potassium [Moles/Vol] 4.5 mmol/L Normal 3.5-5.1 [facility] Comment on above: Order Comment: DRAW MORNING LABS AT 0600 PER MAURICIO HERNANDEZ 0428. Performed By: #### NASH Shaffer BMP ####[place] [id number] [facility] Serum or plasma anion gap de terminationOrdered By: Ramón Mcgarry on 12-11-2023 Anion gap [Moles/Vol] 7.5 mmol/L Normal 6.0-15.0 [facility] Comment on above: Order Comment: DRAW MORNING LABS AT 0600 PER MAURICIO HERNANDEZ 0428. Performed By: #### NASH Shaffer BMP ####[place] [id number] [facility] Sodium [Moles/volume] in Ser um or PlasmaOrdered By: Ramón Mcgarry on 12-11-2023 Sodium [Moles/Vol] 135 mmol/L Low 136-145 [facility] Comment on above: Order Comment: DRAW MORNING LABS AT 0600 PER MAURICIO HERNANDEZ 0428. Performed By: #### NASH Shaffer BMP ####[place] [id number] [place] Urea nitrogen [Mass/volume] in Serum or PlasmaOrdered By: Ramón Mcgarry on 12-11-2023 Urea nitrogen [Mass/Vol] 12 mg/dL Normal 7-25 [facility] Comment on above: Order Comment: DRAW MORNING LABS AT 0600 PER MAURICIO HERNANDEZ 0428. Performed By: #### M G, PHOS, BMP ####[place] [address] [place] [address] [facility] XR chest 2V*on 12-11-2023 XR chest 2V* Normal [facility] Acetaminophen [Mass/volume] in Serum or PlasmaOrdered By: Eneida Ratliff on 12-10-2023 Acetaminophen [Mass/Vol] 0.7 ug/mL Low 10.0-30.0 [facility] Comment on above: Result Comment: PERF ORMED BY:[address] [place]ju[place], [place] [phone] MEDICAL DIRECTORDAMIÁN BONNER M.D. Performed By: #### B HOB, BMP, ACET ####[place] [address] [place] [address] [facility] Activated partial thrombopla stin time (aPTT) in platelet poor plasma by coagulation aOrdered By: Eneida Ratliff on 12-10-2023 aPTT Coag (PPP) [Time] 31.4 s 25.1-36.5 [facility] Comment on above: A hematocrit value g reater than 55% may lead to inaccurate results in coagulation testing. Patients having hematocrit values >55% require a special collection tube for coagulation studies. Please contact the laboratory at [phone] for redraw instructions. Amphetamine Screen Ql (U)Ord ered By: Eneida Ratliff on 12-10-2023 Amphetamines Ql (U) Negative Negative [facility] Automated basophil %Ordered By: Eneida Ratliff on 12-10-2023 Basophils/100 WBC (Bld) 1.1 % Normal . [facility] Comment on above: Performed By: #### H S TROP, CBC, CK, BNP ####[address] [place] [address] [facility] Automated basophil countOrde red By: Eneida Ratliff on 12-10-2023 Basophils (Bld) [#/Vol] 0.0 10*3/uL Normal 0.0-0.2 [facility] Comment on above: Result Comment: PERF ORMED BY:[address] [address] [address] [place], [place] [phone] MEDICAL DIRECTORDAMIÁN BONNER M.D. Performed By: #### H S TROP, CBC, CK, BNP ####[address] Automated blood monocyte cou ntOrdered By: Eneida Ratliff on 12-10-2023 Monocytes (Bld) [#/Vol] 0.5 10*3/uL Normal 0.0-0.8 [facility] Comment on above: Performed By: #### H S TROP, CBC, CK, BNP ####[address] Automated eosinophil %Ordere d By: Eneida Ratliff on 12-10-2023 Eosinophils/100 WBC (Bld) 3.0 % Normal . [facility] Comment on above: Performed By: #### H S TROP, CBC, CK, BNP ####[address] Automated eosinophil countOr dered By: Eneida Ratliff on 12-10-2023 Eosinophils (Bld) [#/Vol] 0.1 10*3/uL Normal 0.0-0.45 [facility] Comment on above: Performed By: #### H S TROP, CBC, CK, BNP ####[address] Automated monocyte %Ordered By: Eneida Ratliff on 12-10-2023 Monocytes/100 WBC (Bld) 10.0 % Normal . [facility] Comment on above: Performed By: #### H S TROP, CBC, CK, BNP ####[address] Automated neutrophil %Ordere d By: Eneida Ratliff on 12-10-2023 Neutrophils/100 WBC (Bld) 60.8 % Normal . [facility] Comment on above: Performed By: #### H S TROP, CBC, CK, BNP ####[address] Automated urine color determ inationOrdered By: Eneida Ratliff on 04-17-2024 Color (U) Yellow Normal Yellow [facility] Comment on above: Order Comment: Name Collection Type:: Clean-Voided Midstream Performed By: #### U A ####[address] BNP ser/plasOrdered By: Harsh Ratliff on 12-10-2023 Natriuretic peptide B (Bld) [Mass/Vol] 15.0 pg/mL Normal 5-100 [facility] Comment on above: Result Comment: PERF ORMED BY:[address] [place]JlAnjuS[place], [place] [phone] MEDICAL DIRECTORDAMIÁN BONNER M.D. Performed By: #### H S TROP, CBC, CK, BNP ####[address] Barbiturates [Presence] in U rine by Screen methodOrdered By: Eneida Ratliff on 12-10-2023 Barbiturates Screen Ql (U) Positive High Negative [facility] Basic Metabolic Panelon 11-23 Anion Gap Normal 6.0-15.0 [facility] Comment on above: Result Comment: Spec imen hemolyzed, redraw requested Performed By: #### B HOB, BMP, ACET ####[address] Creatinine Clr Calc Pharmacy 121.33 Normal [facility] Comment on above: Performed By: #### B HOB, BMP, ACET ####[address] GFR/1.73 sq M.predicted MDRD (S/P/Bld) [Vol rate/Area] mL/min/{1.73_m2} Normal [facility] Comment on above: Performed By: #### B HOB, BMP, ACET ####[address] Potassium Normal 3.5-5.1 [facility] Comment on above: Result Comment: Spec imen hemolyzed, redraw requested Performed By: #### B HOB, BMP, ACET ####[place] [address] [address] [place] [address] [facility] Benzodiazepines Screen Ql (U )Ordered By: Eneida Ratliff on 12-10-2023 Benzodiazepines Ql (U) Negative Negative [facility] Benzoylecgonine [Presence] i n Urine by Screen methodOrdered By: Eneida Ratliff on 12-10-2023 Benzoylecgonine Screen Ql (U) Negative Negative [facility] Beta Hydroxybuterateon 12-09 Beta Hydroxybuterate 0.30 mmol/L High 0.02-0.27 [facility] Comment on above: Result Comment: PERF ORMED BY:[address] [place], [place] [phone] MEDICAL DIRECTORDAMIÁN BONNER M.D. Performed By: #### B HOB BMP, ACET ####[address] [place] [address] [facility] Beta hydroxybutyrate [Moles/ volume] in Serum or PlasmaOrdered By: Eneida Ratliff on 12-10-2023 Beta hydroxybutyrate [Moles/Vol] 0.30 mmol/L High 0.02-0.27 [facility] Bilirubin Test strip Ql (U)O rdered By: Eneida Ratliff on 12-10-2023 Bilirubin Ql (U) Negative Negative [facility] Calcium [Mass/volume] in Ser um or PlasmaOrdered By: Eneida Ratliff on 12-10-2023 Calcium [Mass/Vol] 9.0 mg/dL Normal 8.6-10.3 [facility] Comment on above: Performed By: #### B HOB, BMP, ACET ####[address] [address] [facility] Cannabinoids [Presence] in U rine by Screen methodOrdered By: Eneida Ratliff on 12-10-2023 Cannabinoids Screen Ql (U) Negative Negative [facility] Comment on above: These are unconfirme d results and should not be used for legal purposes. Drug Cut-Off Concentration: AMPH 1000 ng/mL TYREE 200 ng/mL DREA 200 ng/mL COCM 300 ng/mL OP 300 ng/mL PCP 25 ng/mL THC 20 ng/mL Carbon dioxide, total [Moles /volume] in Serum or PlasmaOrdered By: Eneida Ratliff on 12-10-2023 CO2 [Moles/Vol] 22.1 mmol/L Normal 21.0-31.0 [facility] Comment on above: Performed By: #### B HOB, BMP, ACET ####[address] Chloride [Moles/volume] in S lian or PlasmaOrdered By: Eneida Ratliff on 12-10-2023 Chloride [Moles/Vol] 101 mmol/L Normal 98-107 [facility] Comment on above: Performed By: #### B HOB, BMP, ACET ####[address] Complete Blood Count Auto Di ffon 12-10-2023 Mean Corpuscular HGB Conc 33.3 g/dL Normal 32.5-35.6 [facility] Comment on above: Performed By: #### H S TROP, CBC, CK, BNP ####[address] Monocytes/100 WBC (Bld) 18.28 % Normal 0.00-20.00 [facility] Comment on above: Performed By: #### H S TROP, CBC, CK, BNP ####[address] NRBC% 0.1 /100{WBC} Normal 0-0.5 [facility] Comment on above: Performed By: #### H S TROP, CBC, CK, BNP ####[address] Creatine kinase [Enzymatic a ctivity/volume] in Serum or PlasmaOrdered By: Eneida Ratliff on 12-10-2023 CK [Catalytic activity/Vol] 70 U/L Normal 30-223 [facility] Comment on above: Performed By: #### H S TROP, CBC, CK, BNP ####[address] Creatinine [Mass/volume] in Serum or PlasmaOrdered By: Eneida Ratliff on 12-10-2023 Creatinine [Mass/Vol] 0.83 mg/dL Normal 0.70-1.30 [facility] Comment on above: Performed By: #### B HOB, BMP, ACET ####[address] Drug Screen,Urineon 12-10-19 24 Amphetamine Screen,Urine Negative Normal Negative [facility] Comment on above: Performed By: #### U RDS ####[address] Barbiturate Screen,Urine Positive High Negative [facility] Comment on above: Performed By: #### U RDS ####[address] Benzodiazepines Screen,Urine Negative Normal Negative [facility] Comment on above: Performed By: #### U RDS ####[address] Cannabinoid Screen,Urine Negative Normal Negative [facility] Comment on above: Result Comment: Thes e are unconfirmed results and should not be used for legal purposes. Drug Cut-Off Concentration: AMPH 1000 ng/mL TYREE 200 ng/mL DREA 200 ng/mL COCM 300 ng/mL OP 300 ng/mL PCP 25 ng/mL THC 20 ng/mLPERFORMED BY:[address] [place], [place] [phone] MEDICAL DIRECTORDAMIÁN BONNER M.D. Performed By: #### U RDS ####[place] [id number] [facility] Cocaine Screen,Urine Negative Normal Negative [facility] Comment on above: Performed By: #### U RDS ####[place] [id number] [facility] Opiate Screen,Urine Negative Normal Negative [facility] Comment on above: Performed By: #### U RDS ####[address] Phencyclidine Screen,Urine Negative Normal Negative [facility] Comment on above: Performed By: #### U RDS ####[address] [address] [facility] ECG 12 lead ECGon 12-10-2023 ECG 12 lead ECG Normal [facility] Erythrocyte distribution wid th [Ratio] by Automated countOrdered By: Eneida Ratliff on 12-10-2023 Erythrocyte distribution width (RBC) [Ratio] 14.9 % High 12.0-14.8 [facility] Comment on above: Performed By: #### H S TROP, CBC, CK, BNP ####[place] [id number] [facility] Erythrocytes [#/volume] in B lood by Automated countOrdered By: Eneida Ratliff on 12-10-2023 RBC (Bld) [#/Vol] 5.13 10*6/uL Normal 3.90-5.60 [facility] Comment on above: Performed By: #### H S TROP, CBC, CK, BNP ####[place] [id number] [facility] Ethanol [Mass/volume] in Ser um or PlasmaOrdered By: Eneida Ratliff on 12-10-2023 Ethanol [Mass/Vol] mg/dL Normal [facility] Comment on above: Performed By: #### E TYRONE ####[place] [id number] [facility] Ethanol [Mass/Vol] TNP [facility] Comment on above: Test not performed Ethyl Alcohol Profileon 11-23 Percent Ethanol Not performed Normal [facility] Comment on above: Result Comment: PERF ORMED BY:[address] [place], [place] [phone] MEDICAL DIRECTORDAMIÁN BONNER M.D. Performed By: #### E TYRONE ####[place] [id number] [facility] Glucose Poct Glucometerson 0 12-10-2023 Glucose [Mass/Vol] 367 mg/dL Normal [facility] Comment on above: Result Comment: [place] Glucose Reference Range is dependent on time and content of last meal. Glucose of more than 200 mg/dL in a nonstressed, ambulatory subject supports the diagnosis of Diabetes Mellitus.PERFORMED BY:[address] [place]ILMAGEOVANNYF[place], [place] [phone] MEDICAL DIRECTORDAMIÁN BONNER M.D. Performed By: #### G HARITHA ####Point of Care testing, Glucose [Mass/volume] in Ser um or PlasmaOrdered By: Eneida Ratliff on 12-10-2023 Glucose [Mass/Vol] 373 mg/dL High 70-100 [facility] Comment on above: ADA recommended refe rence rangeRandom Glucose Reference Range is dependent on time and content of last meal. Glucose of more than 200 mg/dL in a nonstressed, ambulatory subject supports the diagnosis of Diabetes Mellitus. Result Comment: [place] om Glucose Reference Range is dependent on time and content of last meal. Glucose of more than 200 mg/dL in a nonstressed, ambulatory subject supports the diagnosis of Diabetes Mellitus. ADA recommended reference range Performed By: #### B HOB, BMP, ACET ####[place] [id number] [facility] Hematocrit [Volume Fraction] of Blood by Automated countOrdered By: Eneida Ratliff on 12-10-2023 Hematocrit (Bld) [Volume fraction] 43.1 % Normal 38.8-50.0 [facility] Comment on above: Performed By: #### H S TROP, CBC, CK, BNP ####[place] [id number] [facility] Hemoglobin [Mass/volume] in BloodOrdered By: Eneida Ratliff on 12-10-2023 Hemoglobin (Bld) [Mass/Vol] 14.3 g/dL Normal 13.0-17.0 [facility] Comment on above: Performed By: #### H S TROP, CBC, CK, BNP ####[place] [id number] [facility] INR in Platelet poor plasma by Coagulation assayOrdered By: Eneida Ratliff on 12-10-2023 INR Coag (PPP) [Relative time] 1.4 {INR} Normal [facility] Comment on above: INR Therapeutic Rang e A) Pre- and Peroperative OAT started two weeks before surgery. NOT HIP SURGERY: 1.5 - 2.5 HIP SURGERY: 2 - 3B) Primary and secondary prevention of venous THROMBOSIS: 2 - 3C) Active venous thrombosis, pulmonary embolismand prevention of recurrent venous thrombosis: 2 - 3D) Prevention of arterial thromboembolismincluding patients with mechanical heart valves: 3 - 4.5 Result Comment: INR Therapeutic Range A) Pre- and Peroperative OAT started two weeks before surgery. NOT HIP SURGERY: 1.5 - 2.5 HIP SURGERY: 2 - 3 B) Primary and secondary prevention of venous THROMBOSIS: 2 - 3 C) Active venous thrombosis, pulmonary embolism and prevention of recurrent venous thrombosis: 2 - 3 D) Prevention of arterial thromboembolism including patients with mechanical heart valves: 3 - 4.5 Performed By: #### P T, PTT ####[place] [id number] Ketones Auto test strip (U) [Mass/Vol]Ordered By: Eneida Ratliff on 12-10-2023 Ketones (U) [Mass/Vol] Negative Negative [facility] Leukocytes [#/volume] correc darnell for nucleated erythrocytes in Blood by Automated counOrdered By: Eneida Ratliff on 12-10-2023 WBC corrected for nucl RBC Auto (Bld) [#/Vol] 4.6 10*3/uL 4.1-10.5 [facility] Leukocytes [#/volume] in Blo od by Automated countOrdered By: Eneida Ratliff on 12-10-2023 WBC (Bld) [#/Vol] 4.6 10*3/uL Normal 4.1-10.5 [facility] Comment on above: Performed By: #### H S TROP, CBC, CK, BNP ####[place] [id number] Lymphocytes [#/volume] in Bl ood by Automated countOrdered By: Eneida Ratliff on 12-10-2023 Lymphocytes (Bld) [#/Vol] 1.2 10*3/uL Normal 1.00-4.8 [facility] Comment on above: Performed By: #### H S TROP, CBC, CK, BNP ####[address] Lymphocytes/100 leukocytes i n Blood by Automated countOrdered By: Eneida Ratliff on 12-10-2023 Lymphocytes/100 WBC (Bld) 25.1 % Normal . [facility] Comment on above: Performed By: #### H S TROP, CBC, CK, BNP ####[facility] [id number] MCH [Entitic mass] by Automa darnell countOrdered By: Eneida Ratliff on 12-10-2023 MCH (RBC) [Entitic mass] 28.0 pg Normal 27.5-35.2 [facility] Comment on above: Performed By: #### H S TROP, CBC, CK, BNP ####[address] MCHC Auto (RBC) [Mass/Vol]Or dered By: Eneida Ratliff on 12-10-2023 MCHC (RBC) [Mass/Vol] 33.3 g/dL 32.5-35.6 [facility] MCV [Entitic volume] by Auto mated countOrdered By: Eneida Ratliff on 12-10-2023 MCV (RBC) [Entitic vol] 84.0 fL Normal 83.5-101 [facility] Comment on above: Performed By: #### H S TROP, CBC, CK, BNP ####[address] Magnesium [Mass/volume] in S lian or PlasmaOrdered By: Eneida Ratliff on 12-10-2023 Magnesium [Mass/Vol] 0.9 mg/dL Off scale low 1.9-2.7 [facility] Comment on above: Critical Result S_MG : Called to and read back by: YAMILET VICTORIA at: 12/11/2023 00:15:40 by:[id number] Order Comment: Unacc eptable specimen due to HEMOLYSIS. Redraw reordered. Result Comment: Crit ical Result S_MG: Called to and read back by: YAMILET VICTORIA at: 12/11/2023 00:15:40 by:[id number] BY:[address] [place], [place] [phone] MEDICAL DIRECTORDAMIÁN BONNER M.D. Performed By: #### M CAM Basurto ####[facility] [address] [place] [address] [facility] Monocyte distribution width [Entitic volume] in Blood by AutomatedOrdered By: Eneida Ratliff on 12-10-2023 Monocyte distribution width Auto (Bld) [Entitic vol] 18.28 % 0.00-20.00 [facility] Neutrophils [#/volume] in Bl ood by Automated countOrdered By: Eneida Ratliff on 12-10-2023 Neutrophils (Bld) [#/Vol] 2.8 10*3/uL Normal 1.8-7.7 [facility] Comment on above: Performed By: #### H S TROP, CBC, CK, BNP ####[facility] [address] [place] [address] [facility] Nitrite Test strip Ql (U)Ord ered By: Eneida Ratliff on 12-10-2023 Nitrite Ql (U) Negative Negative [facility] No Panel InformationOrdered By: Nigel Rdz on 12-10-2023 Blood Gas Critical Value See comment [facility] Comment on above: Critical Value mclaughlin d on: 12/10/2023 at 23:28 Blood Gas Sample Site Venous [facility] FiO2 21 % [facility] Venous Blood Base Excess -4.1 mmol/L Low -3.0-3.0 [facility] Venous Blood Oxygen Content 7.3 mmol/L 6.6-9.7 [facility] Venous Blood Oxygen Saturation 82.4 % High 73.0-76.0 [facility] Venous Blood Partial Pressure CO2 39.3 mm[Hg] 38.0-50.0 [facility] Venous Blood Partial Pressure O2 45.6 mm[Hg] High 35.0-45.0 [facility] Venous Blood pH 7.35 7.32-7.43 [facility] No Panel InformationOrdered By: Eneida Ratliff on 12-10-2023 Estimated GFR (CKD-EPI) > 60.0 mL/Min [facility] Creatinine Clearance (Chem 121.33 [facility] Nucleated erythrocytes [Pres ence] in Blood by Automated countOrdered By: Eneida Ratliff on 12-10-2023 Nucleated RBC Auto Ql (Bld) 0.1 /100{WBC} 0-0.5 [facility] Opiates [Presence] in Urine by Screen methodOrdered By: Eneida Ratliff on 12-10-2023 Opiates Screen Ql (U) Negative Negative [facility] Partial Thromboplastin Timeo n 12-10-2023 aPTT Coag (Bld) [Time] 31.4 s Normal 25.1-36.5 [facility] Comment on above: Result Comment: A he matocrit value greater than 55% may lead to inaccurate results in coagulation testing. Patients having hematocrit values >55% require a special collection tube for coagulation studies. Please contact the laboratory at [phone] for redraw instructions.PERFORMED BY:[address] [address] [place], [place] [phone] MEDICAL DIRECTORDAMIÁN BONNER M.D. Performed By: #### P T, PTT ####[place] [id number] [facility] Phencyclidine Screen Ql (U)O rdered By: Eneida Ratliff on 12-10-2023 Phencyclidine Ql (U) Negative Negative [facility] Platelet mean volume [Entiti c volume] in Blood by Automated countOrdered By: Eneida Ratliff on 12-10-2023 Platelet mean volume (Bld) [Entitic vol] 9.3 fL Normal 6.6-10.1 [facility] Comment on above: Performed By: #### H S TROP, CBC, CK, BNP ####[place] [id number] [facility] Platelets [#/volume] in Bloo d by Automated countOrdered By: Eneida Ratliff on 12-10-2023 Platelets (Bld) [#/Vol] 186 10*3/uL Normal 150-450 [facility] Comment on above: Performed By: #### H S TROP, CBC, CK, BNP ####[place] [id number] [facility] Potassium [Moles/volume] in Serum or PlasmaOrdered By: Eneida Ratliff on 12-10-2023 Potassium [Moles/Vol] 2.4 mmol/L Off scale low 3.5-5.1 [facility] Comment on above: Critical Result Call ed to and read back by: YAMILET VICTORIA at: 12/10/2023 23:09:16 by:[id number] Order Comment: Unacc eptable specimen due to HEMOLYSIS. Redraw reordered. Result Comment: Crit ical Result Called to and read back by: YAMILET VICTORIA at: 12/10/2023 23:09:16 by:[id number] Performed By: #### M G, REDRAW K ####[facility] [id number] [place] [id number] [facility] Protein Auto test strip (U) [Mass/Vol]Ordered By: Eneida Ratliff on 12-10-2023 Protein (U) [Mass/Vol] Negative Negative [facility] Prothrombin time (PT)Ordered By: Eneida Ratliff on 12-10-2023 PT Coag (PPP) [Time] 15.8 s High 9.0-12.9 [facility] Comment on above: A hematocrit value g reater than 55% may lead to inaccurate results in coagulation testing. Patients having hematocrit values >55% require a special collection tube for coagulation studies. Please contact the laboratory at [phone] for redraw instructions. Result Comment: A he matocrit value greater than 55% may lead to inaccurate results in coagulation testing. Patients having hematocrit values >55% require a special collection tube for coagulation studies. Please contact the laboratory at [phone] for redraw instructions. Performed By: #### P T, PTT ####[facility] [id number] [place] [id number] [facility] Serum or plasma anion gap de terminationOrdered By: Eneida Ratliff on 12-10-2023 Anion gap [Moles/Vol] See comment 6.0-15.0 [facility] Comment on above: Specimen hemolyzed, redraw requested Sodium [Moles/volume] in Ser um or PlasmaOrdered By: Eneida Ratliff on 12-10-2023 Sodium [Moles/Vol] 132 mmol/L Low 136-145 [facility] Comment on above: Performed By: #### B AUSTEN, BMP, ACET ####[place] [id number] [facility] Specific gravity Auto test s trip (U) [Rel density]Ordered By: Eneida Ratliff on 12-10-2023 Specific gravity (U) [Rel density] 1.026 1.001-1.03 0 [facility] Troponin I High Sensitivityo n 12-10-2023 Troponin I High Sensitivity 5.5 pg/mL Normal 0.0-20.0 [facility] Comment on above: Result Comment: PERF ORMED BY:[address] [place], [place] [phone] MEDICAL DIRECTORDAMIÁN BONNER M.D. Performed By: #### H S TROP, CBC, CK, BNP ####[place] [id number] [facility] Troponin I.cardiac [Mass/vol ume] in Serum or Plasma by Detection limit <= 0.01 ng/Ordered By: Eneida Ratliff on 12-10-2023 Troponin I.cardiac DL <= 0.01 ng/mL [Mass/Vol] 5.5 pg/mL 0.0-20.0 [facility] Urea nitrogen [Mass/volume] in Serum or PlasmaOrdered By: Eneida Ratliff on 12-10-2023 Urea nitrogen [Mass/Vol] 15 mg/dL Normal 7-25 [facility] Comment on above: Performed By: #### B AUSTEN, BMP, ACET ####[place] [id number] [facility] Urinalysison 12-10-2023 Appearance (U) Clear Normal Clear [facility] Comment on above: Order Comment: Name Collection Type:: Clean-Voided Midstream Performed By: #### U A ####[place] [id number] [facility] Bilirubin,Urine Negative Normal Negative [facility] Comment on above: Order Comment: Name Collection Type:: Clean-Voided Midstream Performed By: #### U A ####[address] [address] [facility] Glucose Ql (U) >=1000 High Normal [facility] Comment on above: Order Comment: Name Collection Type:: Clean-Voided Midstream Performed By: #### U A ####[address] [address] [facility] Ketones Ql (U) Negative Normal Negative [facility] Comment on above: Order Comment: Name Collection Type:: Clean-Voided Midstream Performed By: #### U A ####[address] [address] [facility] Leukocyte esterase Test strip Ql (U) Negative Normal Negative [facility] Comment on above: Order Comment: Name Collection Type:: Clean-Voided Midstream Performed By: #### U A ####[address] [address] [facility] Nitrite,Urine Negative Normal Negative [facility] Comment on above: Order Comment: Name Collection Type:: Clean-Voided Midstream Performed By: #### U A ####[address] [address] [facility] Occult Blood,Urine Negative Normal Negative [facility] Comment on above: Order Comment: Name Collection Type:: Clean-Voided Midstream Result Comment: PERF ORMED BY:[address] [place], [place] [phone] MEDICAL NOLBERTO BONNER M.D. Performed By: #### U A ####[address] [address] [facility] Protein,Urine Negative Normal Negative [facility] Comment on above: Order Comment: Name Collection Type:: Clean-Voided Midstream Performed By: #### U A ####[address] [address] [facility] Specificy [place],Urine 1.026 Normal 1.00 1-1.03 0 [facility] Comment on above: Order Comment: Name Collection Type:: Clean-Voided Midstream Performed By: #### U A ####[address] [place] [address] [facility] Urobilinogen,Urine Normal Normal Normal [facility] Comment on above: Order Comment: Name Collection Type:: Clean-Voided Midstream Performed By: #### U A ####[facility] [address] [id number] [facility] Urine clarity by refractomet ry automatedOrdered By: Eneida Ratliff on 12-10-2023 Clarity Refractometry automated (U) Clear Clear [facility] Urine glucose measurement by automated test strip (mass/volume)Ordered By: Eneida Ratliff on 12-10-2023 Glucose Auto test strip (U) [Mass/Vol] >=1000 mg/dL High Normal [facility] Urine hemoglobin detection b y automated test stripOrdered By: Eneida Ratliff on 12-10-2023 Hemoglobin Auto test strip Ql (U) Negative Negative [facility] Urine leukocyte esterase det ection by automated test stripOrdered By: Eneida Ratliff on 12-10-2023 Leukocyte esterase Auto test strip Ql (U) Negative Negative [facility] Urine pH measurement by auto mated test stripOrdered By: Eneida Ratliff on 12-10-2023 pH (U) 5.5 [pH] Normal 5.0-9.0 [facility] Comment on above: Order Comment: Name Collection Type:: Clean-Voided Midstream Performed By: #### U A ####[facility] [address] [id number] [facility] Urobilinogen Auto test strip (U) [Mass/Vol]Ordered By: Eneida Ratliff on 12-10-2023 Urobilinogen (U) [Mass/Vol] Normal mg/dL Normal [facility] Venous Blood GasOrdered By: Nigel Rdz on 12-10-2023 CO2 [Moles/Vol] 22.3 mmol/L Low 24.0-29.0 [facility] Comment on above: Performed By: #### V BG ####Point of Care testing, HCO3 (Bld) [Moles/Vol] 21.1 mmol/L Low 23.0-29.0 [facility] Comment on above: Performed By: #### V BG ####Point of Care testing, Venous Blood Gason Respiratory Critical Normal [facility] Comment on above: Result Comment: Crit ical Value called on: 12/10/2023 at 23:28PERFORMED BY:[facility] [place] [place], [place] [phone] MEDICAL DIRECTORDAMIÁN BONNER M.D. Performed By: #### V BG ####Point of Care testing, VBG Base Excess -4.1 mmol/L Low -3.0-3.0 [facility] Comment on above: Performed By: #### V BG ####Point of Care testing, VBG Draw Site Venous Normal [facility] Comment on above: Performed By: #### V BG ####Point of Care testing, VBG Frac Inspired O2 21 % Normal [facility] Comment on above: Performed By: #### V BG ####Point of Care testing, VBG O2 Content 7.3 mmol/L Normal 6.6-9.7 [facility] Comment on above: Performed By: #### V BG ####Point of Care testing, VBG Oxygen Saturation 82.4 % High 73.0-76.0 [facility] Comment on above: Performed By: #### V BG ####Point of Care testing, VBG PCO2 39.3 mm[Hg] Normal 38.0-50.0 [facility] Comment on above: Performed By: #### V BG ####Point of Care testing, VBG PH Venous PH 7.35 Normal 7.32-7.43 [facility] Comment on above: Performed By: #### V BG ####Point of Care testing, VBG PO2 45.6 mm[Hg] High 35.0-45.0 [facility] Comment on above: Performed By: #### V BG ####Point of Care testing, T3 Totalon 10-25-2023 T3 [Mass/Vol] 103 ng/dL Invalid Interpretation Code 71180 [facility] Comment on above: Result Comment: Perf ormed at: [facility] [address] [place], [place] [id number] PhD Lenore Lucero Performed By: #### 2 073933, 7323762, 2799056, 20492093, 3111109, 83066293, 24659401 ####[address] [place] [address] CBC w/ Auto Diffon 4 Basophils/100 WBC (Bld) 0.7 % Normal 0.0-2.0 [facility] Comment on above: Performed By: #### 2 920274, 5926145, 2631083, 13308142, 6717830, 08729409, 92915546 ####[address] [address] Basophils/Leukocytes Auto (Bld) [Pure # fraction] 0.0 E9/L Normal 0.0-0.2 [facility] Comment on above: Performed By: #### 2 903908, 5922694, 0308663, 40061770, 6641646, 04549942, 55418605 ####[address] [address] Eosinophils (Bld) [#/Vol] 0.1 E9/L Normal 0.0-0.5 [facility] Comment on above: Performed By: #### 2 798734, 6674074, 9108871, 88049393, 9096505, 41960718, 55993713 ####[address] [address] Eosinophils/100 WBC (Bld) 2.0 % Normal 0.0-8.0 [facility] Comment on above: Performed By: #### 2 114080, 5291649, 4587086, 44743875, 8648626, 44471260, 21217186 ####[address] [address] Erythrocyte distribution width (RBC) [Ratio] 14.4 % High 10.9-14.2 [facility] Comment on above: Performed By: #### 2 635730, 3209948, 5031050, 73612506, 2315075, 08286131, 78099151 ####[address] [place] [address] Hematocrit (Bld) [Volume fraction] 48.1 % Normal 37.7-49.0 [facility] Comment on above: Performed By: #### 2 096968, 2460817, 0195909, 22906777, 6433519, 09922016, 22070854 ####[address] [place] [address] Hemoglobin (Bld) [Mass/Vol] 16.3 g/dL Normal 13.5-17.5 [facility] Comment on above: Performed By: #### 2 959402, 2340782, 6398008, 00904054, 1548644, 68525186, 21322034 ####[address] [address] Lymphocytes (Bld) [#/Vol] 1.2 E9/L Normal 1.0-4.0 [facility] Comment on above: Performed By: #### 2 078814, 2777115, 6668799, 62101730, 5287970, 34645299, 28103152 ####[address] [address] Lymphocytes/100 WBC (Bld) 16.9 % Normal 14.0-50.0 [facility] Comment on above: Performed By: #### 2 100248, 8979982, 2556906, 78282560, 3166088, 87089483, 82738371 ####[address] [address] MCH (RBC) [Entitic mass] 27.8 pg Normal 27.0-34.0 [facility] Comment on above: Performed By: #### 2 830577, 3347942, 6938996, 94540100, 4257747, 58977013, 73242246 ####[address] [place] [address] MCHC (RBC) [Mass/Vol] 33.8 g/dL Normal 31.4-36.0 [facility] Comment on above: Performed By: #### 2 539583, 4295460, 9658141, 65429161, 3242690, 25675403, 31524566 ####[address] [address] MCV (RBC) [Entitic vol] 82.2 fL Normal 80.0-100.[address] [facility] Comment on above: Performed By: #### 2 959994, 8891933, 1825915, 03351151, 7074253, 40505948, 79528831 ####[address] Monocytes (Bld) [#/Vol] 0.5 E9/L Normal 0.2-1.[address] [facility] Comment on above: Performed By: #### 2 439022, 2341150, 0236554, 08627112, 0479286, 82238018, 98217884 ####[address] [address] Neutrophils (Bld) [#/Vol] 5.1 E9/L Normal 2.0-7.5 [facility] Comment on above: Performed By: #### 2 627130, 0504229, 8257258, 96921230, 2253743, 14379666, 07721508 ####[address] [address] Neutrophils/100 WBC (Bld) 73.8 % Normal 36.0-75.0 [facility] Comment on above: Performed By: #### 2 958943, 4069981, 4880393, 00359466, 0169235, 44104992, 90251625 ####[address] [place] [address] Platelet mean volume (Bld) [Entitic vol] 10.3 fL Normal 6.4-10.8 [facility] Comment on above: Performed By: #### 2 948081, 9562689, 3211168, 59775352, 7865058, 66754989, 31141950 ####[facility] [address] [place] [address] Platelets (Bld) [#/Vol] 198.0 E9/L Normal 150. 0-500. 0 [facility] Comment on above: Performed By: #### 2 322948, 0281659, 2194862, 87202000, 0680115, 03414680, 23412694 ####[facility] [address] [place] [address] RBC (Bld) [#/Vol] 5.9 E12/L Normal 4.3-5.9 [facility] Comment on above: Performed By: #### 2 349332, 2544114, 8158499, 28805922, 7088864, 43815605, 03043309 ####[address] [place] [address] WBC corrected for nucl RBC Auto (Bld) [#/Vol] 6.9 E9/L Normal 4.0-11.0 [facility] Comment on above: Performed By: #### 2 580534, 8309527, 7662928, 52365316, 9177917, 07713285, 47829375 ####[address] [place] [address] CMPon 10-24-2023 Albumin [Mass/Vol] 4.6 g/dL Normal 3.3-5.0 [facility] Comment on above: Performed By: #### 2 823214, 0592823, 7212225, 01167712, 3179715, 95521716, 79722684 ####[address] [place] [address] Albumin/Globulin (S) [Mass conc ratio] 1.8 Normal 1.1-2.2 [facility] Comment on above: Performed By: #### 2 883298, 7530464, 2743512, 49868266, 6932206, 87581855, 57342277 ####[facility] [address] [place] [address] ALP [Catalytic activity/Vol] 107 Int._Unit/L High 21-98 [facility] Comment on above: Performed By: #### 2 262982, 9452582, 2534998, 28370870, 9406240, 90240319, 46384613 ####[facility] [address] [place] [address] ALT No additional P-5'-P [Catalytic activity/Vol] 33 Int._Unit/L Normal 6-46 [facility] Comment on above: Performed By: #### 2 740106, 6778710, 8444820, 83602920, 8568679, 36206015, 88653120 ####[facility] [address] [place] [address] Anion gap [Moles/Vol] 16 mmol/L Normal 6-16 [facility] Comment on above: Performed By: #### 2 047413, 8256693, 2088395, 31648472, 6782121, 12654258, 80781551 ####[facility] [address] [place] [address] AST [Catalytic activity/Vol] 19 Int._Unit/L Normal 5-43 [facility] Comment on above: Performed By: #### 2 871308, 7314937, 8643954, 29256656, 4942907, 86621970, 85490872 ####[facility] [address] [place] [address] Bilirubin [Mass/Vol] 0.5 mg/dL Normal 0.0-1.1 [facility] Comment on above: Performed By: #### 2 830438, 6443337, 4688611, 16830247, 7025639, 48855506, 79186949 ####[facility] [address] [place] [address] Calcium [Mass/Vol] 9.6 mg/dL Normal 8.9-11.1 [facility] Comment on above: Performed By: #### 2 491843, 6242533, 2159036, 78630545, 1062977, 75103421, 95655942 ####[facility] [address] [place] [address] Chloride [Moles/Vol] 98 mmol/L Low 101-111 [facility] Comment on above: Performed By: #### 2 073783, 6785397, 3507166, 85153008, 4659487, 09369133, 67707861 ####[facility] [address] [place] [address] CO2 [Moles/Vol] 27 mmol/L Normal 21-31 [facility] Comment on above: Performed By: #### 2 960297, 2159538, 1255963, 30352541, 1757809, 99835232, 53252331 ####[facility] [address] [place] [address] Creatinine [Mass/Vol] 1.1 mg/dL Normal 0.5-1.3 [facility] Comment on above: Performed By: #### 2 963189, 7390397, 4233074, 69817704, 1113925, 97642619, 98439745 ####[facility] [address] [place] [address] Globulin (S) [Mass/Vol] 2.5 g/dL Normal 1.4-4.[address] [facility] Comment on above: Performed By: #### 2 220672, 7587104, 3408241, 63927140, 6202590, 15664342, 74938717 ####[facility] [address] [place] [address] Glucose [Mass/Vol] 180 mg/dL Normal 55-199 [facility] Comment on above: Performed By: #### 2 617133, 0570841, 7883865, 04413396, 1154658, 02751433, 44712431 ####[facility] [address] [place] [address] Potassium [Moles/Vol] 4.7 mmol/L Normal 3.5-5.3 [facility] Comment on above: Performed By: #### 2 735195, 3823713, 5792175, 54176003, 1508832, 95596918, 97571712 ####[facility] [address] [place] [address] Protein [Mass/Vol] 7.1 g/dL Normal 6.0-7.8 [facility] Comment on above: Performed By: #### 2 871674, 7719858, 9646113, 97820300, 7811947, 46299857, 15497145 ####[facility] [address] [place] [address] Sodium [Moles/Vol] 136 mmol/L Normal 135-145 [facility] Comment on above: Performed By: #### 2 063747, 0393663, 3995097, 17743939, 3498620, 14980908, 12405614 ####[facility] [address] [place] [address] Urea nitrogen [Mass/Vol] 20 mg/dL Normal 5-21 [facility] Comment on above: Performed By: #### 2 008587, 3823349, 6933335, 04720873, 0864894, 49395383, 35539776 ####[facility] [address] [place] [address] Urea nitrogen/Creatinine [Mass ratio] 18 No Units Normal 10-20 [facility] Comment on above: Performed By: #### 2 038785, 5184208, 7160794, 24548836, 8881842, 96834452, 79937977 ####[facility] [address] [place] [address] Lipid Panelon 10-24-2023 Cholesterol [Mass/Vol] 153 mg/dL Normal 120-200 [facility] Comment on above: Performed By: #### 2 669174, 5600743, 7323372, 93245818, 8851758, 05132480, 72905117 ####[facility] [address] [place] [address] Cholesterol in HDL [Mass/Vol] 36 mg/dL Invalid Interpretation Code [facility] Comment on above: Result Comment: '>= 60 LOW RISK' '<= 40 HIGH RISK' Performed By: #### 2 017049, 6387269, 5615992, 79586980, 2026618, 12307252, 71581690 ####[facility] [address] [place] [address] Cholesterol in LDL [Mass/Vol] 88 mg/dL Normal <=129 [facility] Comment on above: Performed By: #### 2 825530, 8829606, 3795580, 41248438, 4090878, 29072254, 88450415 ####[facility] [address] [place] [address] Cholesterol in VLDL [Mass/Vol] 40 mg/dL Normal 7-40 [facility] Comment on above: Performed By: #### 2 031755, 6212805, 0999571, 24073604, 3933941, 69356575, 82861186 ####[facility] [address] [place] [address] Triglyceride [Mass/Vol] 198 mg/dL High <=[address] [facility] Comment on above: Performed By: #### 2 407658, 3170290, 5855493, 26701597, 9145295, 05676256, 91397499 ####[facility] [address] [place] [address] Physician Orderon 10-24-2023 Physician Order [id number] Normal [facility] T4 & TSHon 10-24-2023 TSH Qn 1.01 m[IU]/L Normal 0.34-5.60 [facility] Comment on above: Performed By: #### 2 046681, 3386642, 8799853, 22922719, 9734095, 98049539, 26396832 ####[facility] [address] [place] [address] T4 [Mass/Vol] 17.2 microgram/dL High 4.6-9.1 [facility] Comment on above: Performed By: #### 2 667837, 5280895, 8952414, 18115314, 4527647, 94317460, 12207335 ####[facility] [address] [place] [address] Uric Acidon 10-24-2023 Urate (U) [Mass/Vol] 8.4 mg/dL High 2.2-7.4 [facility] Comment on above: Performed By: #### 2 439109, 9886981, 0849878, 24479977, 4975060, 42276066, 13435179 ####[facility] [address] [place] [address] eGFRon 10-24-2023 eGFR 76 mL/min/1.73 m2 Normal >=59 [facility] Comment on above: Order Comment: Order added by Discern Expert. Performed By: #### 2 602299, 4950076, 1805229, 59446310, 9302756, 44442803, 63866678 ####[facility] [address] [place] [address] Alanine aminotransferase [En zymatic activity/volume] in Serum or PlasmaOrdered By: Davonte Mendez on 09-27-2023 ALT [Catalytic activity/Vol] 35 U/L Normal 7-52 [facility] Comment on above: Performed By: #### C BC, BMP, HEPATIC, BHOB, LIPASE ####[facility] [address] [place] [address] [facility] Albumin [Mass/volume] in Ser um or Plasma by Bromocresol green (BCG) dye binding methoOrdered By: Davonte Mendez on 09-27-2023 Albumin BCG dye [Mass/Vol] 4.3 g/dL 3.5-5.7 [facility] Alkaline phosphatase [Enzyma tic activity/volume] in Serum or PlasmaOrdered By: Davonte Mendez on 09-27-2023 ALP [Catalytic activity/Vol] 120 U/L High 34-104 [facility] Comment on above: Performed By: #### C BC, BMP, HEPATIC, BHOB, LIPASE ####[address] Aspartate aminotransferase [ Enzymatic activity/volume] in Serum or PlasmaOrdered By: Davonte Mendez on 09-27-2023 AST [Catalytic activity/Vol] 25 U/L Normal 13-39 [facility] Comment on above: Performed By: #### C BC, BMP, HEPATIC, BHOB, LIPASE ####[address] Automated basophil %Ordered By: Davonte Mendez on 09-27-2023 Basophils/100 WBC (Bld) 0.7 % Normal . [facility] Comment on above: Performed By: #### C BC, BMP, HEPATIC, BHOB, LIPASE ####[address] Automated basophil countOrde red By: Davonte Mendez on 09-27-2023 Basophils (Bld) [#/Vol] 0.1 10*3/uL Normal 0.0-0.2 [facility] Comment on above: Result Comment: PERF ORMED BY:[address] [place], [place] [id number] MEDICAL DIRECTORDAMIÁN BONNER M.D. Performed By: #### C BC, BMP, HEPATIC, BHOB, LIPASE ####[address] Automated blood monocyte cou ntOrdered By: Davonte Mendez on 09-27-2023 Monocytes (Bld) [#/Vol] 0.5 10*3/uL Normal 0.0-0.8 [facility] Comment on above: Performed By: #### C BC, BMP, HEPATIC, BHOB, LIPASE ####[address] Automated eosinophil %Ordere d By: Davonte Mendez on 09-27-2023 Eosinophils/100 WBC (Bld) 1.5 % Normal . [facility] Comment on above: Performed By: #### C BC, BMP, HEPATIC, BHOB, LIPASE ####[address] Automated eosinophil countOr dered By: Davonte Newtonarthy on 09-27-2023 Eosinophils (Bld) [#/Vol] 0.1 10*3/uL Normal 0.0-0.45 [facility] Comment on above: Performed By: #### C BC, BMP, HEPATIC, BHOB, LIPASE ####[address] Automated monocyte %Ordered By: Davonte Mendez on 09-27-2023 Monocytes/100 WBC (Bld) 5.9 % Normal . [facility] Comment on above: Performed By: #### C BC, BMP, HEPATIC, BHOB, LIPASE ####[address] Automated neutrophil %Ordere d By: Davontetiara Mendez on 09-27-2023 Neutrophils/100 WBC (Bld) 81.5 % Normal . [facility] Comment on above: Performed By: #### C BC, BMP, HEPATIC, BHOB, LIPASE ####[address] Automated urine color determ inationOrdered By: Davonte Mendez on 09-27-2023 Color (U) Yellow Normal Yellow [facility] Comment on above: Order Comment: Name Collection Type:: Clean-Voided Midstream Performed By: #### U A, COVID19 FLU RSV, CEPHEID NEG ####[address] Basic Metabolic Panelon Creatinine Clr Calc Pharmacy 93.78 Normal [facility] Comment on above: Performed By: #### C BC, BMP, HEPATIC, BHOB, LIPASE ####[address] GFR/1.73 sq M.predicted MDRD (S/P/Bld) [Vol rate/Area] mL/min/{1.73_m2} Normal [facility] Comment on above: Performed By: #### C BC, BMP, HEPATIC, BHOB, LIPASE ####[address] [place] [id number] [facility] Beta Hydroxybuterateon 09-27 Beta Hydroxybuterate 0.50 mmol/L High 0.02-0.27 [facility] Comment on above: Result Comment: PERF ORMED BY:[address] [place], [place] [phone] MEDICAL DIRECTORDAMIÁN BONNER M.D. Performed By: #### C BC, BMP, HEPATIC, BHOB, LIPASE ####[place] Beta hydroxybutyrate [Moles/ volume] in Serum or PlasmaOrdered By: Davonte Mendez on 09-27-2023 Beta hydroxybutyrate [Moles/Vol] 0.50 mmol/L 0.02-0.27 [facility] Bilirubin Test strip Ql (U)O rdered By: Davonte Mendez on 09-27-2023 Bilirubin Ql (U) Negative Negative [facility] Bilirubin.direct [Mass/volum e] in Serum or PlasmaOrdered By: Davonte Mendez on 09-27-2023 Bilirubin.direct [Mass/Vol] 0.10 mg/dL 0.03-0.18 [facility] Bilirubin.total [Mass/volume ] in Serum or PlasmaOrdered By: Davonte Mendez on 09-27-2023 Bilirubin [Mass/Vol] 0.5 mg/dL Normal 0.3-1.0 [facility] Comment on above: Performed By: #### C BC, BMP, HEPATIC, BHOB, LIPASE ####[address] [place] [id number] [facility] COVID CepheidOrdered By: Damian Mendez on 09-27-2023 SARS-CoV-2 (COVID-19) Ab IA Ql Negative Negative [facility] Comment on above: This is a duplicate CepCriterion Securityid Xpert Xpress CoV-2/Flu/RSV Plus RNA by RT-PCR result to be used for statistical tracking purpose only. SARS-CoV-2 (COVID-19) RNA RAMIREZ+probe Ql (Unsp spec) Normal [facility] Comment on above: Performed By: #### U A, COVID19 FLU RSV, CEPHEID NEG ####[facility] SARS-CoV-2 (COVID-19) RNA RAMIREZ+probe Ql (Unsp spec) [facility] CT abdomen pelvis w conon CT abdomen pelvis w con Normal [facility] Calcium [Mass/volume] in Ser um or PlasmaOrdered By: Davonte Mendez on 09-27-2023 Calcium [Mass/Vol] 9.2 mg/dL Normal 8.6-10.3 [facility] Comment on above: Performed By: #### C BC, BMP, HEPATIC, BHOB, LIPASE ####[place] [address] Capillary blood glucose marc urement by glucometer (mass/volume)Ordered By: Davonte Mendez on 09-27-2023 Glucose [Mass/Vol] 368 mg/dL Normal [facility] Comment on above: Random Glucose Refer ence Range is dependent on time and content of last meal. Glucose of more than 200 mg/dL in a nonstressed, ambulatory subject supports the diagnosis of Diabetes Mellitus. Result Comment: [place] Glucose Reference Range is dependent on time and content of last meal. Glucose of more than 200 mg/dL in a nonstressed, ambulatory subject supports the diagnosis of Diabetes Mellitus. Performed By: #### G LULS ####Point of Care testing, Carbon dioxide, total [Moles /volume] in Serum or PlasmaOrdered By: Davonte Mendez on 09-27-2023 CO2 [Moles/Vol] 26.4 mmol/L Normal 21.0-31.0 [facility] Comment on above: Performed By: #### C BC, BMP, HEPATIC, BHOB, LIPASE ####[facility] [place] [id number] [facility] Cepheid COVID PCR Negativeon 09-27-2023 SARS-CoV-2 (COVID-19) RNA RAMIREZ+probe Ql (Unsp spec) Negative Normal Negative [facility] Comment on above: Result Comment: This is a duplicate Cepheid Xpert Xpress CoV-2/Flu/RSV Plus RNA by RT-PCR result to be used for statistical tracking purpose only.PERFORMED BY:[address] [place], [place] [phone] MEDICAL DIRECTORDAMIÁN BONNER M.D. Performed By: #### U A, COVID19 FLU RSV, CEPHEID NEG ####[address] Chloride [Moles/volume] in S lian or PlasmaOrdered By: Davonte Mendez on 09-27-2023 Chloride [Moles/Vol] 97 mmol/L Low 98-107 [facility] Comment on above: Performed By: #### C BC, BMP, HEPATIC, BHOB, LIPASE ####[place] [id number] [facility] Complete Blood Count Auto Di ffon 09-27-2023 Mean Corpuscular HGB Conc 33.9 g/dL Normal 32.5-35.6 [facility] Comment on above: Performed By: #### C BC, BMP, HEPATIC, BHOB, LIPASE ####[address] Monocytes/100 WBC (Bld) 18.54 % Normal 0.00-20.00 [facility] Comment on above: Performed By: #### C BC, BMP, HEPATIC, BHOB, LIPASE ####[address] NRBC% 0.4 /100{WBC} Normal 0-0.5 [facility] Comment on above: Performed By: #### C BC, BMP, HEPATIC, BHOB, LIPASE ####[address] Creatinine [Mass/volume] in Serum or PlasmaOrdered By: Davonte Mendez on 09-27-2023 Creatinine [Mass/Vol] 1.05 mg/dL Normal 0.70-1.30 [facility] Comment on above: Performed By: #### C BC, BMP, HEPATIC, BHOB, LIPASE ####[address] [place] [address] [facility] ECG 12 lead ECGon 09-27-2023 ECG 12 lead ECG Normal [facility] Erythrocyte distribution wid th [Ratio] by Automated countOrdered By: Davonte Mendez on 09-27-2023 Erythrocyte distribution width (RBC) [Ratio] 14.4 % Normal 12.0-14.8 [facility] Comment on above: Performed By: #### C BC, BMP, HEPATIC, BHOB, LIPASE ####[address] [place] [address] [facility] Erythrocytes [#/volume] in B lood by Automated countOrdered By: Davonte Mendez on 09-27-2023 RBC (Bld) [#/Vol] 6.03 10*6/uL High 3.90-5.60 [facility] Comment on above: Performed By: #### C BC, BMP, HEPATIC, BHOB, LIPASE ####[address] [address] [facility] Glucose Poct Glucometerson 0 09-27-2023 Commemt1 Glu2: Cleaned Meter Normal [facility] Comment on above: Result Comment: PERF ORMED BY:[address] [place], [place] [phone] MEDICAL DIRECTORDAMIÁN BONNER M.D. Performed By: #### G LULS ####Point of Care testing, Glucose [Mass/volume] in Ser um or PlasmaOrdered By: Davonte Mendez on 09-27-2023 Glucose [Mass/Vol] 404 mg/dL High 70-100 [facility] Comment on above: ADA recommended refe rence rangeRandom Glucose Reference Range is dependent on time and content of last meal. Glucose of more than 200 mg/dL in a nonstressed, ambulatory subject supports the diagnosis of Diabetes Mellitus. Result Comment: [facility] Glucose Reference Range is dependent on time and content of last meal. Glucose of more than 200 mg/dL in a nonstressed, ambulatory subject supports the diagnosis of Diabetes Mellitus. ADA recommended reference range Performed By: #### C BC, BMP, HEPATIC, BHOB, LIPASE ####[address] Hematocrit [Volume Fraction] of Blood by Automated countOrdered By: Davonte Mendez on 09-27-2023 Hematocrit (Bld) [Volume fraction] 50.1 % High 38.8-50.0 [facility] Comment on above: Performed By: #### C BC, BMP, HEPATIC, BHOB, LIPASE ####[address] Hemoglobin [Mass/volume] in BloodOrdered By: Davonte Mendez on 09-27-2023 Hemoglobin (Bld) [Mass/Vol] 17.0 g/dL Normal 13.0-17.0 [facility] Comment on above: Performed By: #### C BC, BMP, HEPATIC, BHOB, LIPASE ####[id number] [facility] Hepatic Panelon 09-27-2023 Albumin [Mass/Vol] 4.3 g/dL Normal 3.5-5.7 [facility] Comment on above: Performed By: #### C BC, BMP, HEPATIC, BHOB, LIPASE ####[address] Bilirubin,Indirect 0.4 mg/dL Normal [facility] Comment on above: Performed By: #### C BC, BMP, HEPATIC, BHOB, LIPASE ####[id number] [facility] Bilirubin.indirect [Mass/Vol] 0.10 mg/dL Normal 0.03-0.18 [facility] Comment on above: Performed By: #### C BC, BMP, HEPATIC, BHOB, LIPASE ####[id number] [facility] Ketones Auto test strip (U) [Mass/Vol]Ordered By: Davonte Mendez on 09-27-2023 Ketones (U) [Mass/Vol] Negative Negative [facility] Leukocytes [#/volume] correc darnell for nucleated erythrocytes in Blood by Automated counOrdered By: Davonte Vanessa on 09-27-2023 WBC corrected for nucl RBC Auto (Bld) [#/Vol] 8.4 10*3/uL 4.1-10.5 [facility] Leukocytes [#/volume] in Blo od by Automated countOrdered By: Davonte Mendez on 09-27-2023 WBC (Bld) [#/Vol] 8.4 10*3/uL Normal 4.1-10.5 [facility] Comment on above: Performed By: #### C BC, BMP, HEPATIC, BHOB, LIPASE ####[address] Lipase [Enzymatic activity/v olume] in Serum or PlasmaOrdered By: Davonte Mendez on 09-27-2023 Lipase [Catalytic activity/Vol] 55.0 U/L Normal 11.0-82.0 [facility] Comment on above: Performed By: #### C BC, BMP, HEPATIC, BHOB, LIPASE ####[address] Lymphocytes [#/volume] in Bl ood by Automated countOrdered By: Davonte Mendez on 09-27-2023 Lymphocytes (Bld) [#/Vol] 0.9 10*3/uL Low 1.00-4.8 [facility] Comment on above: Performed By: #### C BC, BMP, HEPATIC, BHOB, LIPASE ####[id number] [facility] Lymphocytes/100 leukocytes i n Blood by Automated countOrdered By: Davonte Mendez on 09-27-2023 Lymphocytes/100 WBC (Bld) 10.4 % Normal . [facility] Comment on above: Performed By: #### C BC, BMP, HEPATIC, BHOB, LIPASE ####[address] MCH [Entitic mass] by Automa darnell countOrdered By: Davonte Mendez on 09-27-2023 MCH (RBC) [Entitic mass] 28.1 pg Normal 27.5-35.2 [facility] Comment on above: Performed By: #### C BC, BMP, HEPATIC, BHOB, LIPASE ####[address] [place] [id number] [facility] MCHC Auto (RBC) [Mass/Vol]Or dered By: Davonte Mendez on 09-27-2023 MCHC (RBC) [Mass/Vol] 33.9 g/dL 32.5-35.6 [facility] MCV [Entitic volume] by Auto mated countOrdered By: Davonte Mendez on 09-27-2023 MCV (RBC) [Entitic vol] 83.1 fL Low 83.5-101 [facility] Comment on above: Performed By: #### C BC, BMP, HEPATIC, BHOB, LIPASE ####[id number] Monocyte distribution width [Entitic volume] in Blood by AutomatedOrdered By: Davonte Mendez on 09-27-2023 Monocyte distribution width Auto (Bld) [Entitic vol] 18.54 % 0.00-20.00 [facility] Neutrophils [#/volume] in Bl ood by Automated countOrdered By: Davonte Mendez on 09-27-2023 Neutrophils (Bld) [#/Vol] 6.9 10*3/uL Normal 1.8-7.7 [facility] Comment on above: Performed By: #### C BC, BMP, HEPATIC, BHOB, LIPASE ####[address] [place] [id number] [facility] Nitrite Test strip Ql (U)Ord ered By: Davonte Mendez on 09-27-2023 Nitrite Ql (U) Negative Negative [facility] No Panel InformationOrdered By: Davonte Mendez on 09-27-2023 Blood Gas Critical Value See comment [facility] Comment on above: Critical Value mclaughlin d on: 09/27/2023 at 11:22 Blood Gas Sample Site Venous [facility] FiO2 21 % [facility] Venous Blood Base Excess -4.1 mmol/L -3.0-3.0 [facility] Venous Blood Oxygen Content 9.1 mmol/L 6.6-9.7 [facility] Venous Blood Oxygen Saturation 97.1 % 73.0-76.0 [facility] Venous Blood Partial Pressure CO2 25.3 mm[Hg] 38.0-50.0 [facility] Venous Blood Partial Pressure O2 87.6 mm[Hg] 35.0-45.0 [facility] Venous Blood pH 7.46 7.32-7.43 [facility] Bedside Glucose Comment Glu2: cleaned meter [facility] Estimated GFR (CKD-EPI) > 60.0 mL/Min [facility] Creatinine Clearance (Chem 93.78 [facility] Nucleated erythrocytes [Pres ence] in Blood by Automated countOrdered By: Davonte Mendez on 09-27-2023 Nucleated RBC Auto Ql (Bld) 0.4 /100{WBC} 0-0.5 [facility] Platelet mean volume [Entiti c volume] in Blood by Automated countOrdered By: Davonte Mendez on 09-27-2023 Platelet mean volume (Bld) [Entitic vol] 9.3 fL Normal 6.6-10.1 [facility] Comment on above: Performed By: #### C BC, BMP, HEPATIC, BHOB, LIPASE ####[facility] [address] [id number] [facility] Platelets [#/volume] in Bloo d by Automated countOrdered By: Davonte Mendez on 09-27-2023 Platelets (Bld) [#/Vol] 212 10*3/uL Normal 150-450 [facility] Comment on above: Performed By: #### C BC, BMP, HEPATIC, BHOB, LIPASE ####[facility] [id number] [place] [id number] [facility] Potassium [Moles/volume] in Serum or PlasmaOrdered By: Davonte Mendez on 09-27-2023 Potassium [Moles/Vol] 4.6 mmol/L Normal 3.5-5.1 [facility] Comment on above: Performed By: #### C BC, BMP, HEPATIC, BHOB, LIPASE ####[address] Protein Auto test strip (U) [Mass/Vol]Ordered By: Davonte Mendez on 09-27-2023 Protein (U) [Mass/Vol] Negative Negative [facility] Protein [Mass/volume] in Ser um or PlasmaOrdered By: Davonte Mendez on 09-27-2023 Protein [Mass/Vol] 7.5 g/dL Normal 6.4-8.9 [facility] Comment on above: Performed By: #### C BC, BMP, HEPATIC, BHOB, LIPASE ####[address] Serum globulin measurement b y calculation (mass/volume)Ordered By: Davonte Mendez on 09-27-2023 Globulin (S) [Mass/Vol] 3.2 g/dL Normal [facility] Comment on above: Performed By: #### C BC, BMP, HEPATIC, BHOB, LIPASE ####[address] Serum or plasma albumin/glob ulin mass ratioOrdered By: Davonte Mendez on 09-27-2023 Albumin/Globulin [Mass ratio] 1.3 {ratio} Normal [facility] Comment on above: Performed By: #### C BC, BMP, HEPATIC, BHOB, LIPASE ####[address] Serum or plasma anion gap de terminationOrdered By: Davonte Mendez on 09-27-2023 Anion gap [Moles/Vol] 17.2 mmol/L High 6.0-15.0 [facility] Comment on above: Performed By: #### C BC, BMP, HEPATIC, BHOB, LIPASE ####[address] Serum or plasma non-glucuron idated bilirubin measurement (mass/volume)Ordered By: Davonte Mendez on 09-27-2023 Bilirubin.indirect [Mass/Vol] 0.4 mg/dL [facility] Sodium [Moles/volume] in Ser um or PlasmaOrdered By: Davonte Newtonarthy on 09-27-2023 Sodium [Moles/Vol] 136 mmol/L Normal 136-145 [facility] Comment on above: Performed By: #### C BC, BMP, HEPATIC, BHOB, LIPASE ####[address] Specific gravity Auto test s trip (U) [Rel density]Ordered By: Davonte Vanessa on 09-27-2023 Specific gravity (U) [Rel density] 1.035 1.001-1.03 0 [facility] Urea nitrogen [Mass/volume] in Serum or PlasmaOrdered By: Davontetiara Mendez on 09-27-2023 Urea nitrogen [Mass/Vol] 23 mg/dL Normal 7-25 [facility] Comment on above: Performed By: #### C BC, BMP, HEPATIC, BHOB, LIPASE ####[id number] [facility] Urinalysison 09-27-2023 Appearance (U) Clear Normal Clear [facility] Comment on above: Order Comment: Name Collection Type:: Clean-Voided Midstream Performed By: #### U A, COVID19 FLU RSV, CEPHEID NEG ####[address] [address] [facility] Bilirubin,Urine Negative Normal Negative [facility] Comment on above: Order Comment: Name Collection Type:: Clean-Voided Midstream Performed By: #### U A, COVID19 FLU RSV, CEPHEID NEG ####[id number] [facility] Glucose Ql (U) >=1000 High Normal [facility] Comment on above: Order Comment: Name Collection Type:: Clean-Voided Midstream Performed By: #### U A, COVID19 FLU RSV, CEPHEID NEG ####[id number] [facility] Ketones Ql (U) Negative Normal Negative [facility] Comment on above: Order Comment: Name Collection Type:: Clean-Voided Midstream Performed By: #### U A, COVID19 FLU RSV, CEPHEID NEG ####[address] [address] [facility] Leukocyte esterase Test strip Ql (U) Negative Normal Negative [facility] Comment on above: Order Comment: Name Collection Type:: Clean-Voided Midstream Performed By: #### U A, COVID19 FLU RSV, CEPHEID NEG ####[address] [address] [facility] Nitrite,Urine Negative Normal Negative [facility] Comment on above: Order Comment: Name Collection Type:: Clean-Voided Midstream Performed By: #### U A, COVID19 FLU RSV, CEPHEID NEG ####[address] [address] [facility] Occult Blood,Urine Negative Normal Negative [facility] Comment on above: Order Comment: Name Collection Type:: Clean-Voided Midstream Result Comment: PERF ORMED BY:[address] [place], [place] [phone] MEDICAL DIRECTORDAMIÁN BONNER M.D. Performed By: #### U A, COVID19 FLU RSV, CEPHEID NEG ####[address] [address] [facility] Protein,Urine Negative Normal Negative [facility] Comment on above: Order Comment: Name Collection Type:: Clean-Voided Midstream Performed By: #### U A, COVID19 FLU RSV, CEPHEID NEG ####[address] [address] [facility] Specificy [place],Urine 1.035 High 1.00 1-1.03 0 [facility] Comment on above: Order Comment: Name Collection Type:: Clean-Voided Midstream Performed By: #### U A, COVID19 FLU RSV, CEPHEID NEG ####[address] [address] [facility] Urobilinogen,Urine Normal Normal Normal [facility] Comment on above: Order Comment: Name Collection Type:: Clean-Voided Midstream Performed By: #### U A, COVID19 FLU RSV, CEPHEID NEG ####[place] [id number] Urine clarity by refractomet ry automatedOrdered By: Davonte Mendez on 09-27-2023 Clarity Refractometry automated (U) Clear Clear [facility] Urine glucose measurement by automated test strip (mass/volume)Ordered By: Davonte Mendez on 09-27-2023 Glucose Auto test strip (U) [Mass/Vol] >=1000 mg/dL Normal [facility] Urine hemoglobin detection b y automated test stripOrdered By: Davonte Mendez on 09-27-2023 Hemoglobin Auto test strip Ql (U) Negative Negative [facility] Urine leukocyte esterase det ection by automated test stripOrdered By: Davonte Mendez on 09-27-2023 Leukocyte esterase Auto test strip Ql (U) Negative Negative [facility] Urine pH measurement by auto mated test stripOrdered By: Davonte Mendez on 09-27-2023 pH (U) 5.5 [pH] Normal 5.0-9.0 [facility] Comment on above: Order Comment: Name Collection Type:: Clean-Voided Midstream Performed By: #### U A, COVID19 FLU RSV, CEPHEID NEG ####[address] Urobilinogen Auto test strip (U) [Mass/Vol]Ordered By: Davonte Mendez on 09-27-2023 Urobilinogen (U) [Mass/Vol] Normal mg/dL Normal [facility] Venous Blood GasOrdered By: Davonte Mendez on 09-27-2023 CO2 [Moles/Vol] 18.5 mmol/L Low 24.0-29.0 [facility] Comment on above: Performed By: #### V BG ####Point of Care testing, HCO3 (Bld) [Moles/Vol] 17.7 mmol/L Low 23.0-29.0 [facility] Comment on above: Performed By: #### V BG ####Point of Care testing, Venous Blood Gason Respiratory Critical Normal [facility] Comment on above: Result Comment: Crit ical Value called on: 09/27/2023 at 11:22PERFORMED BY:[facility] [place], [place] [phone] MEDICAL DIRECTORDAMIÁN BONNER M.D. Performed By: #### V BG ####Point of Care testing, VBG Base Excess -4.1 mmol/L Low -3.0-3.0 [facility]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 JVD. Trachea is midline. Thorax: Symmetrical rise and fall Lungs: Clear to auscultation throughout all alex, no wheezes, no crackles Heart: Tachycardia, rate 135. no murmur, gallop, or rub Abdomen: No tenderness on palpation. Bowel sounds are present active and normal. No organomegaly. No palpable masses. No CVA tenderness. Extremities: Motor sensory pulses intact x4 extremities. No lower extremity edema. Skin: No lesions, rashes, ulcerations. No bruising or petechiae. Color appropriate, warm and dry Neuro: No oriented x3, no focal neuro deficits Psych: Mood and affect are normal Medical Decision Making MEDICAL DECISION MAKING Number and Complexity of Problems Differential Diagnosis: Orthostatic hypotension, acute lower urinary tract infection, ACS, electrolyte imbalance, dehydration MDM Data External documents reviewed: Not applicable My EKG interpretation: Noted in chart if applicable My CT interpretation: Noted in chart if applicable My X-ray interpretation: Noted in chart if applicable My Ultrasound interpretation: Not applicable Decision rules/scores evaluated: Noted in chart if applicable Discussed with: Not applicable Treatment and Disposition ED Course: Patient was interviewed and examined. The appropriate ER work-up was initiated. On arrival patient had a heart rate of 134 with a blood pressure 138/85. EKG was sinus tachycardia with a rate of 125 with no acute changes. Chest x-ray read by the radiologist was with no active lung disease. Patient was given a total of 2 L of normal saline wide open. White blood count 6.8, hemoglobin 15.0, hematocrit 43.4, platelets 195. Sodium 137, potassium 4.3, chloride 99, CO2 26, BUN 11, creatinine 1.0, glucose 335, calcium 9.2. First troponin 8.50, 3-hour troponin 7.50. Beta hydroxybutyrate 0.46. UA remarkable for 3+ glucose, negative ketones. The patient was ambulated in the de (more content not included)... Normal [facility] Comment on above: Result Comment: Elec tronically Signed By: Iwona Davey PA-C\.br\Date and Time Signed: 04/02/23 02:10 EDT\.br\Electronically Co-Signed By: Tyson Dias MD\.br\Date and Time Co-Signed: 04/25/23 01:08 EDT XR KNEE 4V AP/PA/LAT/MERCH B ERAon 04-25-2023 XR KNEE 4V AP/PA/LAT/MERCH RICARDO * * *Final Report* * * DATE OF EXAM: Apr 25 2023 12:40PM LZX 5618 - XR KNEE 4V AP/PA/LAT/MERCH RICARDO / PROCEDURE REASON: Pain * * * * Physician Interpretation * * * * HISTORY: Pain . TECHNIQUE: XR KNEE 4V AP/PA/LAT/MERCH RICARDO Laterality: BILATERAL Number of different views (projections): 4each COMPARISON: None available. RESULT: There is no acute fracture or dislocation. There is bilateral knee osteoarthritis with mild to moderate joint space narrowing and marginal osteophytes. There is no evidence of left knee joint effusion. There is a small right knee joint effusion. There is no soft tissue swelling. Vascular calcifications are noted. No other significant abnormality. IMPRESSION: Mild to moderate bilateral knee osteoarthritis. Small left knee joint effusion. Photocopying Equipment Mechanic: [email or web address] Transcribe Date/Time: Apr 25 2023 1:42P Dictated by : SUZY AKBAR MD This examination was interpreted and the report reviewed and electronically signed by: SUZY AKBAR MD on Apr 25 2023 1:42PM EST [id number] Normal [facility] XR Knee - bilateral 4 Viewso n 04-25-2023 IMPRESSION: Mild to moderate bilateral knee osteoarthritis. Small left knee joint effusion. Photocopying Equipment Mechanic: [facility] Transcribe Date/Time: Apr 25 2023 1:42P Dictated by : SUZY AKBAR MD This examination was interpreted and the report reviewed and electronically signed by: SUZY AKBAR MD on Apr 25 2023 1:42PM EST DIVISION OF RADIOLOGY * * *Final Report* * * DATE OF EXAM: Apr 25 2023 12:40PM LZX [id number] - XR KNEE 4V AP/PA/LAT/MERCH RICARDO / PROCEDURE REASON: Pain * * * * Physician Interpretation * * * * HISTORY: Pain . TECHNIQUE: XR KNEE 4V AP/PA/LAT/MERCH RICARDO Laterality: BILATERAL Number of different views (projections): 4each COMPARISON: None available. RESULT: There is no acute fracture or dislocation. There is bilateral knee osteoarthritis with mild to moderate joint space narrowing and marginal osteophytes. There is no evidence of left knee joint effusion. There is a small right knee joint effusion. There is no soft tissue swelling. Vascular calcifications are noted. No other significant abnormality. DIVISION OF RADIOLOGY Provider, [facility] Lester Javed - 04/25/2023 * * *Final Report* * * DATE OF EXAM: Apr 25 2023 12:40PM LZX 5618 - XR KNEE 4V AP/PA/LAT/MERCH RICARDO / PROCEDURE REASON: Pain * * * * Physician Interpretation * * * * HISTORY: Pain . TECHNIQUE: XR KNEE 4V AP/PA/LAT/MERCH RICARDO Laterality: BILATERAL Number of different views (projections): 4each COMPARISON: None available. RESULT: There is no acute fracture or dislocation. There is bilateral knee osteoarthritis with mild to moderate joint space narrowing and marginal osteophytes. There is no evidence of left knee joint effusion. There is a small right knee joint effusion. There is no soft tissue swelling. Vascular calcifications are noted. No other significant abnormality. IMPRESSION IMPRESSION: Mild to moderate bilateral knee osteoarthritis. Small left knee joint effusion. Photocopying Equipment Mechanic: P[employer] Transcribe Date/Time: Apr 25 2023 1:42P Dictated by : SUZY AKBAR MD This examination was interpreted and the report reviewed and electronically signed by: SUZY AKBAR MD on Apr 25 2023 1:42PM EST [facility] Radiology Study observation (narrative) Chhaya billy [facility] XR Knee - bilateral 4 ViewsO rdered By: [facility] Provider on 04-25-[address] [facility] Insurance Correspondenceon 0 04-18-2023 Insurance Correspondence [id number]#[id number]:127 Normal [facility] Alanine aminotransferase [En zymatic activity/volume] in Serum or PlasmaOrdered By: Ramon Arzate on 04-12-2023 ALT [Catalytic activity/Vol] 32 U/L 7-52 [facility] Albumin [Mass/volume] in Ser um or Plasma by Bromocresol green (BCG) dye binding methoOrdered By: Ramon Arzate on 04-12-2023 Albumin BCG dye [Mass/Vol] 3.9 g/dL 3.5-5.7 [facility] Alkaline phosphatase [Enzyma tic activity/volume] in Serum or PlasmaOrdered By: Ramon Arzate on 04-12-2023 ALP [Catalytic activity/Vol] 133 U/L 34-104 [facility] Aspartate aminotransferase [ Enzymatic activity/volume] in Serum or PlasmaOrdered By: Ramon Arzate on 04-12-2023 AST [Catalytic activity/Vol] 19 U/L 13-39 [facility] Basophils Auto (Bld) [#/Vol] Ordered By: Ramon Arzate on 04-12-2023 Basophils (Bld) [#/Vol] 0.1 10*3/uL 0.0-0.2 [facility] Basophils/100 WBC Auto (Bld) Ordered By: Ramon Arzate on 04-12-2023 Basophils/100 WBC (Bld) 0.8 % . [facility] Beta hydroxybutyrate [Moles/ volume] in Serum or PlasmaOrdered By: Ramon Arzate on 04-12-2023 Beta hydroxybutyrate [Moles/Vol] 0.30 mmol/L 0.02-0.27 [facility] Bilirubin.total [Mass/volume ] in Serum or PlasmaOrdered By: Ramon Arzate on 04-12-2023 Bilirubin [Mass/Vol] 0.4 mg/dL 0.3-1.0 [facility] Calcium [Mass/volume] in Ser um or PlasmaOrdered By: Ramon Arzate on 04-12-2023 Calcium [Mass/Vol] 9.1 mg/dL 8.6-10.3 [facility] Carbon dioxide, total [Moles /volume] in Serum or PlasmaOrdered By: Ramon Arzate on 04-12-2023 CO2 [Moles/Vol] 24.0 mmol/L 21.0-31.0 [facility] Chloride [Moles/volume] in S lian or PlasmaOrdered By: Ramon Arzate on 04-12-2023 Chloride [Moles/Vol] 103 mmol/L 98-107 [facility] Creatinine [Mass/volume] in Serum or PlasmaOrdered By: Ramon Arzate on 04-12-2023 Creatinine [Mass/Vol] 0.97 mg/dL 0.70-1.30 [facility] Eosinophils Auto (Bld) [#/Vo l]Ordered By: Ramon Arzate on 04-12-2023 Eosinophils (Bld) [#/Vol] 0.1 10*3/uL 0.0-0.45 [facility] Eosinophils/100 WBC Auto (Bl d)Ordered By: Ramon Arzate on 04-12-2023 Eosinophils/100 WBC (Bld) 0.9 % . [facility] Erythrocyte distribution wid th Auto (RBC) [Ratio]Ordered By: Ramon Arzate on 04-12-2023 Erythrocyte distribution width (RBC) [Ratio] 14.8 % 12.0-14.8 [facility] Globulin Calc (S) [Mass/Vol] Ordered By: Ramon Arzate on 04-12-2023 Globulin (S) [Mass/Vol] 3.1 g/dL [facility] Glucose [Mass/volume] in Ser um or PlasmaOrdered By: Ramon Arztae on 04-12-2023 Glucose [Mass/Vol] 253 mg/dL 70-100 [facility] Comment on above: ADA recommended refe rence rangeRandom Glucose Reference Range is dependent on time and content of last meal. Glucose of more than 200 mg/dL in a nonstressed, ambulatory subject supports the diagnosis of Diabetes Mellitus. Hematocrit Auto (Bld) [Volum e fraction]Ordered By: Ramon Arzate on 04-12-2023 Hematocrit (Bld) [Volume fraction] 45.6 % 38.8-50.0 [facility] Hemoglobin [Mass/volume] in BloodOrdered By: Ramon Arzate on 04-12-2023 Hemoglobin (Bld) [Mass/Vol] 15.2 g/dL 13.0-17.0 [facility] Leukocytes [#/volume] correc darnell for nucleated erythrocytes in Blood by Automated counOrdered By: Ramon Arzate on 04-12-2023 WBC corrected for nucl RBC Auto (Bld) [#/Vol] 9.0 10*3/uL 4.1-10.5 [facility] Lymphocytes Auto (Bld) [#/Vo l]Ordered By: Ramon Arzate on 04-12-2023 Lymphocytes (Bld) [#/Vol] 0.9 10*3/uL 1.00-4.8 [facility] Lymphocytes/100 WBC Auto (Bl d)Ordered By: Ramon Arzate on 04-12-2023 Lymphocytes/100 WBC (Bld) 10.0 % . [facility] MCH Auto (RBC) [Entitic mass ]Ordered By: Ramon Arzate on 04-12-2023 MCH (RBC) [Entitic mass] 27.6 pg 27.5-35.2 [facility] MCHC Auto (RBC) [Mass/Vol]Or dered By: Ramon Arzate on 04-12-2023 MCHC (RBC) [Mass/Vol] 33.3 g/dL 32.5-35.6 [facility] MCV Auto (RBC) [Entitic vol] Ordered By: Ramon Arzate on 04-12-2023 MCV (RBC) [Entitic vol] 82.9 fL 83.5-101 [facility] Monocyte distribution width [Entitic volume] in Blood by AutomatedOrdered By: Ramon Arzate on 04-12-2023 Monocyte distribution width Auto (Bld) [Entitic vol] 18.79 % 0.00-20.00 [facility] Monocytes Auto (Bld) [#/Vol] Ordered By: Ramon Arzate on 04-12-2023 Monocytes (Bld) [#/Vol] 0.7 10*3/uL 0.0-0.8 [facility] Monocytes/100 WBC Auto (Bld) Ordered By: Ramon Arzate on 04-12-2023 Monocytes/100 WBC (Bld) 8.2 % . [facility] Neutrophils Auto (Bld) [#/Vo l]Ordered By: Ramon Arzate on 04-12-2023 Neutrophils (Bld) [#/Vol] 7.2 10*3/uL 1.8-7.7 [facility] Neutrophils/100 WBC Auto (Bl d)Ordered By: Ramon Arzate on 04-12-2023 Neutrophils/100 WBC (Bld) 80.1 % . [facility] No Panel InformationOrdered By: Ramon Arzate on 04-12-2023 Estimated GFR (CKD-EPI) > 60.0 mL/Min [facility] Creatinine Clearance (Chem 105.27 [facility] Nucleated erythrocytes [Pres ence] in Blood by Automated countOrdered By: Ramon Arzate on 04-12-2023 Nucleated RBC Auto Ql (Bld) 0.1 /100{WBC} 0-0.5 [facility] Platelet mean volume Auto (B ld) [Entitic vol]Ordered By: Ramon Arzate on 04-12-2023 Platelet mean volume (Bld) [Entitic vol] 8.7 fL 6.6-10.1 [facility] Platelets Auto (Bld) [#/Vol] Ordered By: Ramon Arzate on 04-12-2023 Platelets (Bld) [#/Vol] 244 10*3/uL 150-450 [facility] Potassium [Moles/volume] in Serum or PlasmaOrdered By: Ramon Arzate on 04-12-2023 Potassium [Moles/Vol] 3.7 mmol/L 3.5-5.1 [facility] Protein [Mass/volume] in Ser um or PlasmaOrdered By: Ramon Arzate on 04-12-2023 Protein [Mass/Vol] 7.0 g/dL 6.4-8.9 [facility] RBC Auto (Bld) [#/Vol]Ordere d By: Ramon Arzate on 04-12-2023 RBC (Bld) [#/Vol] 5.49 10*6/uL 3.90-5.60 [facility] Serum or plasma albumin/glob ulin mass ratioOrdered By: Ramon Arzate on 04-12-2023 Albumin/Globulin [Mass ratio] 1.3 {ratio} [facility] Serum or plasma anion gap de terminationOrdered By: Ramon Arzate on 04-12-2023 Anion gap [Moles/Vol] 14.7 mmol/L 6.0-15.0 [facility] Sodium [Moles/volume] in Ser um or PlasmaOrdered By: Ramon Arzate on 04-12-2023 Sodium [Moles/Vol] 138 mmol/L 136-145 [facility] Urea nitrogen [Mass/volume] in Serum or PlasmaOrdered By: Ramon Arzate on 04-12-2023 Urea nitrogen [Mass/Vol] 12 mg/dL 7-25 [facility] WBC Auto (Bld) [#/Vol]Ordere d By: Ramon Arzate on 04-12-2023 WBC (Bld) [#/Vol] 9.0 10*3/uL 4.1-10.5 [facility] Ambulatory Visit Summaryon 0 04-10-2023 Ambulatory Visit Summary MANNIE MICHEL :1960 Visit Date:04/10/2023 Ambulatory Visit Instructions Your Diagnosis Esophagitis, Mcmullen grade B Gastric erosions Dysphagia Acid reflux BRBPR (bright red blood per rectum) Diarrhea Fatty liver Screen for colon cancer Family history of colonic polyps Your Care Team Attending Physician - Kaela Rosa CNP Primary Care Physician - Kajal KOLB, Janki Andrade This Is Your Medications List polyethylene glycol 3350 with electrolytes (Plenvu oral powder for reconstitution) Contact prescribing physician if questions or concerns acetaminophen (Tylenol Extra Strength 500 mg oral tablet) atorvastatin (Lipitor 80 mg Tab) canagliflozin (Invokana 100 mg oral tablet) cholecalciferol (Vitamin D3 5000 intl units oral capsule) citalopram (citalopram 40 mg Tab) clopidogrel (Plavix 75 mg Tab) dicyclomine (dicyclomine 20 mg Tab) docusate (Colace 100 mg Cap) dulaglutide (Trulicity Pen) fluticasone (fluticasone CFC free 44 mcg/inh Inh Aer w/adapter) furosemide (Lasix 20 mg Tab) gabapentin (gabapentin 400 mg Cap) insulin aspart (NovoLog FlexPen) insulin glargine (Lantus Solostar Pen) insulin glargine (Lantus Solostar Pen) lisinopril (lisinopril 5 mg Tab) meclizine (meclizine 25 mg Tab) melatonin (melatonin 3 mg Tab) metformin (metformin 500 mg oral tablet) methocarbamol (methocarbamol 750 mg Tab) metoprolol (metoprolol 100 mg ER Tab) nitroglycerin (nitroglycerin 0.1 mg/hr transdermal film, extended release) omeprazole (omeprazole 40 mg Cap-DR) pantoprazole (pantoprazole 40 mg Oral EC Tab) primidone (primidone 50 mg Tab) prochlorperazine (Compazine 10 mg oral tablet) quetiapine (quetiapine 50 mg oral tablet) ropinirole (ropinirole 0.5 mg Tab) semaglutide (Ozempic) sucralfate (Carafate 1 gram Tab) venlafaxine (venlafaxine 37.5 mg Cap-ER) Procedures Performed Esophagogastroduodenoscopy (03/17/2023), Esophagogastroduodenoscopy (12/24/2021), Colonoscopy (08/08/2020), Carpal tunnel release (09/09/2019), Cardiac catheterization, Carpal tunnel release, Insertion of coronary artery stent. Discharge Vitals Temperature (Temporal Artery) 36.1 ?C Heart Rate (Peripheral) 104 Blood Pressure 104/70 Height 177 cm Height 70 in Weight 119.2 kg Weight 262.24 lb BMI 38.05 What to do next You Need to Schedule the Following Appointments Follow Up with Kaela Rosa CNP When: Within 1 to 2 weeks Comments: Following EGD/Colonoscopy. Where: You Need to Complete the Following Clostridium Difficile PCR, Stool, Routine collect, 04/10/23, Order for future visit, Nurse collect, Diarrhea, Not Required, Print Label By Order Location Enteric Panel by PCR, Stool, Routine collect, 04/10/23, Order for future visit, Nurse collect, Diarrhea, Not Required, Print Label By Order Location Fecal WBC Lactoferrin, Stool, Routine collect, 04/10/23, Order for future visit, Nurse collect, Diarrhea, Not Required, Print Label By Order Location Giardia lamblia, Direct Detection EIA, Stool, Routine collect, 04/10/23, Order for future visit, Nurse collect, Diarrhea, Not Required, Print Label By Order Location O & P Exam, Routine, Stool, Routine collect, 04/10/23, Order for future visit, Nurse collect, Diarrhea, Not Required, Print Label By Order Location Medications What How Much When Why Instructions New polyethylene glycol 3350 with electrolytes (Plenvu oral powder for reconstitution) See instructions Prior to colonoscopy. Pickup at [facility] Unchanged acetaminophen (Tylenol Extra Strength 500 mg oral tablet) 1 Tablets By Mouth Every 6 hours as needed for as needed for pain Contact prescribing physician if questions or concerns Unchanged atorvastatin (Lipitor 80 mg Tab) 1 Tablets By Mouth Every day Contact prescribing physician if questions or concerns Unchanged canagliflozin (Invokana 100 mg oral tablet) TAKE 1 TABLET BY MOUTH DAILY BEFORE THE FIRST MEAL OF THE DAY Contact prescribing physician if questions or concerns Unchanged cholecalciferol (Vitamin D3 5000 intl units oral capsule) 1 Capsules By Mouth Every day with food Contact prescribing physician if questions or concerns Unchanged citalopram (citalopram 40 mg Tab) 1 Tablets By Mouth Every day Contact prescribing physician if questions or concerns Unchanged clopidogrel (Plavix 75 mg Tab) 1 Tablets By Mouth Every day Contact prescribing physician if questions or concerns Unchanged dicyclomine (dicyclomine 20 mg Tab) 1 Tablets By Mouth 4 times a day Contact prescribing physician if questions or concerns Unchanged docusate (Colace 100 mg Cap) 1 Capsules By Mouth 2 times a day as needed for for constipation Contact prescribing physician if questions or concerns Unchanged dulaglutide (Trulicity Pen) Contact prescribing physician if questions or concerns Unchanged fluticasone (fluticasone CFC free 44 mcg/ inh Inh Aer w/ adapter) 2 Puffs Inhalation 2 times a day Co (more content not included)... Normal [facility] Ambulatory Visit Summary MANNIE MICHEL :1960 Visit Date:04/10/2023 Ambulatory Visit Instructions Your Diagnosis Esophagitis, Mcmullen grade B Gastric erosions Dysphagia Acid reflux BRBPR (bright red blood per rectum) Diarrhea Fatty liver Screen for colon cancer Family history of colonic polyps Your Care Team Attending Physician - Kaela Rosa CNP Primary Care Physician - Janki Rdz MD This Is Your Medications List polyethylene glycol 3350 with electrolytes (Plenvu oral powder for reconstitution) Contact prescribing physician if questions or concerns acetaminophen (Tylenol Extra Strength 500 mg oral tablet) atorvastatin (Lipitor 80 mg Tab) canagliflozin (Invokana 100 mg oral tablet) cholecalciferol (Vitamin D3 5000 intl units oral capsule) citalopram (citalopram 40 mg Tab) clopidogrel (Plavix 75 mg Tab) dicyclomine (dicyclomine 20 mg Tab) docusate (Colace 100 mg Cap) dulaglutide (Trulicity Pen) fluticasone (fluticasone CFC free 44 mcg/inh Inh Aer w/adapter) furosemide (Lasix 20 mg Tab) gabapentin (gabapentin 400 mg Cap) insulin aspart (NovoLog FlexPen) insulin glargine (Lantus Solostar Pen) insulin glargine (Lantus Solostar Pen) lisinopril (lisinopril 5 mg Tab) meclizine (meclizine 25 mg Tab) melatonin (melatonin 3 mg Tab) metformin (metformin 500 mg oral tablet) methocarbamol (methocarbamol 750 mg Tab) metoprolol (metoprolol 100 mg ER Tab) nitroglycerin (nitroglycerin 0.1 mg/hr transdermal film, extended release) omeprazole (omeprazole 40 mg Cap-DR) pantoprazole (pantoprazole 40 mg Oral EC Tab) primidone (primidone 50 mg Tab) prochlorperazine (Compazine 10 mg oral tablet) quetiapine (quetiapine 50 mg oral tablet) ropinirole (ropinirole 0.5 mg Tab) semaglutide (Ozempic) sucralfate (Carafate 1 gram Tab) venlafaxine (venlafaxine 37.5 mg Cap-ER) Procedures Performed Esophagogastroduodenoscopy (03/17/2023), Esophagogastroduodenoscopy (12/24/2021), Colonoscopy (08/08/2020), Carpal tunnel release (09/09/2019), Cardiac catheterization, Carpal tunnel release, Insertion of coronary artery stent. Discharge Vitals Temperature (Temporal Artery) 36.1 ?C Heart Rate (Peripheral) 104 Blood Pressure 104/70 Height 177 cm Height 70 in Weight 119.2 kg Weight 262.24 lb BMI 38.05 What to do next You Need to Schedule the Following Appointments Follow Up with Kaela Rosa CNP When: Within 1 to 2 weeks Comments: Following EGD/Colonoscopy. Where: You Need to Complete the Following Clostridium Difficile PCR, Stool, Routine collect, 04/10/23, Order for future visit, Nurse collect, Diarrhea, Not Required, Print Label By Order Location Enteric Panel by PCR, Stool, Routine collect, 04/10/23, Order for future visit, Nurse collect, Diarrhea, Not Required, Print Label By Order Location Fecal WBC Lactoferrin, Stool, Routine collect, 04/10/23, Order for future visit, Nurse collect, Diarrhea, Not Required, Print Label By Order Location Giardia lamblia, Direct Detection EIA, Stool, Routine collect, 04/10/23, Order for future visit, Nurse collect, Diarrhea, Not Required, Print Label By Order Location O & P Exam, Routine, Stool, Routine collect, 04/10/23, Order for future visit, Nurse collect, Diarrhea, Not Required, Print Label By Order Location Medications What How Much When Why Instructions New polyethylene glycol 3350 with electrolytes (Plenvu oral powder for reconstitution) See instructions Prior to colonoscopy. Pickup at [facility] Unchanged acetaminophen (Tylenol Extra Strength 500 mg oral tablet) 1 Tablets By Mouth Every 6 hours as needed for as needed for pain Contact prescribing physician if questions or concerns Unchanged atorvastatin (Lipitor 80 mg Tab) 1 Tablets By Mouth Every day Contact prescribing physician if questions or concerns Unchanged canagliflozin (Invokana 100 mg oral tablet) TAKE 1 TABLET BY MOUTH DAILY BEFORE THE FIRST MEAL OF THE DAY Contact prescribing physician if questions or concerns Unchanged cholecalciferol (Vitamin D3 5000 intl units oral capsule) 1 Capsules By Mouth Every day with food Contact prescribing physician if questions or concerns Unchanged citalopram (citalopram 40 mg Tab) 1 Tablets By Mouth Every day Contact prescribing physician if questions or concerns Unchanged clopidogrel (Plavix 75 mg Tab) 1 Tablets By Mouth Every day Contact prescribing physician if questions or concerns Unchanged dicyclomine (dicyclomine 20 mg Tab) 1 Tablets By Mouth 4 times a day Contact prescribing physician if questions or concerns Unchanged docusate (Colace 100 mg Cap) 1 Capsules By Mouth 2 times a day as needed for for constipation Contact prescribing physician if questions or concerns Unchanged dulaglutide (Trulicity Pen) Contact prescribing physician if questions or concerns Unchanged fluticasone (fluticasone CFC free 44 mcg/ inh Inh Aer w/ adapter) 2 Puffs Inhalation 2 times a day Co (more content not included)... Normal [facility] Consent for Procedure/Surger yon 04-10-2023 Consent for Procedure/Surgery [id number] Normal [facility] Gastroenterology Office/Clin ic Noteon 04-10-2023 Gastroenterology Office/Clinic Note Chief Complaint Diarrhea HPI Staff Patient is a 62 year old male here today to review EGD results. Patient c/o diarrhea. History of Present Illness Patient is a 62-year-old male who presents for follow-up from EGD completed 03/17/[address] Pizarro. PMH of HLD, DM, type 2, HTN- managed by patient's PCP. Patient with hx. cardiac stents and is taking plavix daily. Patient was previously evaluated by Dr. Pizarro 11/2022 and note indicated patient with history of large gastric bezoar that was treated with low residual diet and erythromycin with 3 to 4 cans of diet [employer]. EGD 02/2022 revealed gastric bezoar resolved however showed evidence of gastroparesis. Note indicated patient with history of fatty liver and had previous liver biopsy in 2019 that showed mild steatosis without steatohepatitis. Note indicated patient also with chronic GERD. Note indicated patient was feeling like rice or spaghetti was getting stuck and was coughing up phlegm. Note also indicated patient's weight had decreased from 288 pounds to 281 pounds. Patient was ordered EGD with possible dilation. Patient had previous labs 04/01/2023 that revealed normal H&H, normal BUN, normal creatinine, normal liver enzymes. Patient had previous FibroScan 11/23/2021 that revealed suboptimal study, F4 fibrosis, severe steatosis. Previous review of outside records from [facility] revealed patient had previous colonoscopy 08/08/[address] Walters that revealed normal colonoscopy with poor preparation and was recommended per Dr. Walters to have repeat colonoscopy in 2024. Review of record also reveals patient had limited ultrasound of abdomen 10/22/2021 that revealed fatty liver. Review of outside record also indicated patient had previous CT abdomen/pelvis 10/09/2021 that revealed no evidence of bowel obstruction, focal soft tissue thickening in right anterior abdominal wall similar to prior, no acute intra-abdominal pathology. EGD completed 03/17/2023 revealed LA grade B esophagitis, moderate gastric erosions, normal duodenum, distal proximal esophagus biopsies within normal limits, stomach biopsy revealed mild chronic inactive gastritis and hyperplastic regenerative changes, negative for intestinal metaplasia, negative for H. pylori?Dr. Pizarro recommended for patient to take omeprazole 40 mg daily, Pepcid 40 mg at bedtime and to have repeat EGD with possible dilation in 3 months. Is taking aspirin daily that is prescribed by another provider. FH colon polyps- patient's mother. Denies FH colon cancer. During today's visit, patient reports over the last 2 months, he has been having difficulty swallowing noodles and rice. He reports feeling like noodles and rice gets stuck in esophagus and will cough up mucus and some food, occurs 1 time a month. He indicates difficulty swallowing occurs if he eats noodles or rice. He reports acid reflux has improved with omeprazole 40mg daily, pepcid 40mg at bedtme, and carafate QID. He reports having diarrhea that started over the last month, occurring daily. Is having 3-4 BMs daily. He explains he is also having BRBPR with wiping that is occurring daily over the last month. Has lost 18.48 pounds intentionally per patient over the last 4 months. Reports he is eating smaller portions. Denies black/bloody stools, nausea/vomiting, fevers/chills, and denies having any other GI complaints. Review of Systems ROS - Provider Constitutional: no fever, no chills. Skin: no Jaundice. ENMT: Yes dysphagia. Respiratory: no shortness of breath. Cardiovascular: no chest pain. Gastrointestinal: no nausea, no vomiting, yes diarrhea. Physical Exam Vitals & Measurements T: 36.1 ?C(Temporal Artery) HR: 104(Peripheral) BP: 104/70 HT: 70 in HT: 177 cm WT: 119.2 kg WT: 262.24 lb BMI: 38.05 General: Well developed, well nourished, in no acute distress Head: Normocephalic/atraumatic Lungs: Normal respiratory effort and clear to auscultation Cardio: Regular rate and rhythm, normal S1 and S2, no murmur, no rub Abdomen: Soft, non-distended, non-tender. Normoactive bowel sounds present in all 4 abdominal quadrants, bilaterally. Mental Status: Alert and oriented x3. Normal mood and affect Assessment/Plan 1. Esophagitis, Mcmullen grade B (K20.80: Other esophagitis without bleeding) EGD completed 03/17/2023 revealed LA grade B esophagitis, moderate gastric erosions, normal duodenum, distal proximal esophagus biopsies within normal limits, stomach biopsy revealed mild chronic inactive gastritis and hyperplastic regenerative changes, negative for intestinal metaplasia, negative for H. pylori. Continue omeprazole 40 mg daily, Pepcid 40 mg at bedtime, and carafate QID. Patient to have repeat EGD with possible dilation in 3 months. Takes Plavix daily?I will request hold time recommendations from prescribing provider of Plavix prior to EGD with possible dilation. Ordered: EGD Endoscopy (Hospital Procedure) 2. Gastric erosions (K25.9: Gastric ulcer, unspecified as (more content not included)... Normal [facility] Comment on above: Result Comment: Elec tronically Signed By: Shelley PADILLA, Kaela Wolfe\.br\Date and Time Signed: 04/10/23 12:59 EDT Patient Educationon 04-10-20 Patient Education Gastroenterology Esophagitis Esophagitis is inflammation of the esophagus. The esophagus is the tube that carries food from the mouth to the stomach. Esophagitis can cause soreness or pain in the esophagus. This condition can make it difficult and painful to swallow. What are the causes? Most causes of esophagitis are not serious. Common causes of this condition include: ? Gastroesophageal reflux disease (GERD). This is when stomach contents move back up into the esophagus (reflux). ? Repeated vomiting. ? An allergic reaction, especially caused by food allergies (eosinophilic esophagitis). ? Injury to the esophagus by swallowing large pills with or without water, or swallowing certain types of medicines. ? Swallowing harmful chemicals, such as household cleaning products. ? Drinking a lot of alcohol. ? An infection of the esophagus. This most often occurs in people who have a weakened immune system. ? Radiation or chemotherapy treatment for cancer. ? Certain diseases such as sarcoidosis, Crohn's disease, and scleroderma. What are the signs or symptoms? Symptoms of this condition include: ? Difficult or painful swallowing. ? Pain with swallowing acidic liquids, such as citrus juices. You may also have pain when you burp. ? Chest pain and difficulty breathing. ? Nausea and vomiting. ? Pain in the abdomen. ? Weight loss. ? Ulcers in the mouth and white patches in the mouth (candidiasis). ? Fever. ? Coughing up blood or vomiting blood. ? Stool that is black, tarry, or bright red. How is this diagnosed? This condition may be diagnosed based on your medical history and a physical exam. You may also have other tests, including: ? A test to examine your esophagus and stomach with a small flexible tube with a camera (endoscopy). ? A test that measures the acidity level in your esophagus. ? A test that measures how much pressure is on your esophagus. ? A barium swallow or modified barium swallow to show the shape, size, and functioning of your esophagus. ? Allergy tests. How is this treated? Treatment for this condition depends on the cause of your esophagitis. In some cases, steroids or other medicines may be given to help relieve your symptoms or to treat the underlying cause of your condition. You may have to make some lifestyle changes, such as: ? Avoiding alcohol. ? Quitting any products that contain nicotine or tobacco. These products include cigarettes, chewing tobacco, and vaping devices, such as e-cigarettes. If you need help quitting, ask your health care provider. ? Changing your diet. ? Exercising. ? Changing your sleep habits and your sleep environment. Follow these instructions at home: Medicines ? Take uprx-mek-hpptjdn and prescription medicines only as told by your health care provider. ? Do not take aspirin, ibuprofen, or other NSAIDs unless your health care provider told you to do so. ? If you have trouble taking pills: ? Use a pill splitter to decrease the size of the pill. This will decrease the chance of the pill getting stuck or injuring your esophagus. ? Drink water after you take a pill. Eating and drinking ? Avoid foods and drinks that seem to make your symptoms worse. ? Follow a diet as recommended by your health care provider. This may involve avoiding foods and drinks such as: ? Coffee and tea, with or without caffeine. ? Drinks that contain alcohol. ? Energy drinks and sports drinks. ? Carbonated drinks or sodas. ? Chocolate and cocoa. ? Peppermint and mint flavorings. ? Garlic and onions. ? Horseradish. ? Spicy and acidic foods, including peppers, chili powder, [place] powder, vinegar, hot sauces, and barbecue sauce. ? [place] fruit juices and citrus fruits, such as oranges, anabel, and limes. ? Tomato-based foods, such as red sauce, chili, salsa, and pizza with red sauce. ? Fried and fatty foods, such as donuts, polish fries, potato chips, and high-fat dressings. ? High-fat meats, such as hot dogs and fatty cuts of red and white meats, such as rib eye steak, sausage, ham, and wiggins. ? High-fat dairy items, such as whole milk, butter, and cream cheese. Lifestyle ? Eat small, frequent meals instead of large meals. ? Avoid drinking large amounts of liquid with your meals. ? Avoid eating meals during the 2?3 hours before bedtime. ? Avoid lying down right after you eat. ? Do not exercise right after you eat. ? Do not use any products that contain nicotine or tobacco. These products include cigarettes, chewing tobacco, and vaping devices, such as e-cigarettes. If you need help quitting, ask your health care provider. General instructions ? Pay attention to any changes in your symptoms. Let your health care provider know about them. ? Wear loose-fitting clothing. Do not wear anything tight around your waist that causes pressure on your abdom (more content not included)... Normal [facility] Physician Referralon 023 Physician Referral [id number]:127 Normal [facility] Discharge Instructionson Discharge Instructions [id number]:127 Normal [facility] ED Clinical Summaryon 2022 ED Clinical Summary (Inserted Image. [place] ble to display) [place] [address] ED Clinical Summary Person Information Name: MANNIE MICHEL/[place] Age: 62 Years : 1960 Sex: Male Language: Kazakh PCP: Janki Rdz MD Marital Status: Visit Id: Visit Reason: Medical screening exam; Tachycardia; low bp, sent by Speciality: Acuity: 2 Enc Type: Emergency Med Service: Emergency Arrival: 04/01/2023 14:39:33 Discharge: 04/01/2023 22:37:00 LOS: 000 07:58 Checkin: 04/01/2023 14:39:33 Checkout: 04/01/2023 22:37:00 Dispo Type: Home (Routine DC) EVENTS: Event Name Event Status Request Date/Time Start Date/Time Complete Date/Time Arrive Complete 04/01/2023 14:39:33 04/01/2023 14:39:33 04/01/2023 14:39:33 Document Home Meds Request 04/01/2023 14:39:33 Triage Complete 04/01/2023 14:39:33 04/01/2023 14:58:06 04/01/2023 14:58:06 Bed Assign Complete 04/01/2023 14:45:19 04/01/2023 14:45:19 04/01/2023 14:45:19 Dr Exam Complete 04/01/2023 14:45:19 04/01/2023 14:46:51 04/01/2023 14:46:51 RN Exam Complete 04/01/2023 14:45:19 04/01/2023 15:45:23 04/01/2023 15:45:23 Registration Complete 04/01/2023 14:46:51 04/01/2023 15:16:18 04/01/2023 15:16:18 EKG Complete 04/01/2023 14:56:00 04/01/2023 15:02:41 Reg Complete Request 04/01/2023 15:16:18 Meds Admin Complete 04/01/2023 15:23:00 04/01/2023 16:03:40 Pending Labs Complete 04/01/2023 15:23:00 04/01/2023 21:20:33 Lab Complete 04/01/2023 15:23:00 04/01/2023 18:48:19 Urine Collect Complete 04/01/2023 15:23:00 04/01/2023 18:48:19 X-Ray Complete 04/01/2023 15:23:00 04/01/2023 15:39:45 04/01/2023 15:49:24 Patient Care Request 04/01/2023 15:23:00 Pending Labs Complete 04/01/2023 15:47:57 04/01/2023 15:47:57 04/01/2023 16:12:05 Lab Complete 04/01/2023 15:47:57 04/01/2023 15:47:57 04/01/2023 16:12:05 Wet Read Request 04/01/2023 15:49:24 Pending Labs Complete 04/01/2023 15:54:02 04/01/2023 15:54:02 04/01/2023 15:54:12 Lab Complete 04/01/2023 15:54:02 04/01/2023 15:54:02 04/01/2023 15:54:12 CT Complete 04/01/2023 16:16:26 04/01/2023 17:41:29 04/01/2023 18:50:36 Pending Labs Cancel 04/01/2023 16:17:03 04/01/2023 16:44:23 Meds Admin Request 04/01/2023 16:18:13 Pending Labs Complete 04/01/2023 16:44:43 04/01/2023 16:44:43 04/01/2023 17:25:57 Pending Labs Complete 04/01/2023 21:13:32 04/01/2023 21:13:32 04/01/2023 21:13:32 Discharge Complete 04/01/2023 21:23:03 04/01/2023 22:38:33 04/01/2023 22:38:33 Transfer Complete 04/01/2023 22:38:33 04/01/2023 22:38:33 04/01/2023 22:38:33 ADDRESS: [address] [place] [id number] PHYS DOC NOTES: MEDICAL INFORMATION: Prescriptions Given: Medications to Continue with No Changes Other Medications acetaminophen (Tylenol Extra Strength 500 mg oral tablet) 1 Tablets By Mouth every 6 hours as needed as needed for pain. aspirin (aspirin 325 mg Oral EC Tab) 1 Tablets By Mouth every day. atorvastatin (Lipitor 80 mg Tab) 1 Tablets By Mouth every day. cholecalciferol (Vitamin D3 5000 intl units oral capsule) 1 Capsules By Mouth every day. with food. citalopram (citalopram 40 mg Tab) 1 Tablets By Mouth every day. clopidogrel (Plavix 75 mg Tab) 1 Tablets By Mouth every day. docusate (Colace 100 mg Cap) 1 Capsules By Mouth 2 times a day as needed for constipation. Refills: 0. furosemide (Lasix 20 mg Tab) 1 Tablets By Mouth every day. gabapentin (gabapentin 400 mg Cap) 3 Capsules By Mouth 3 times a day. insulin aspart (NovoLog FlexPen) 3 units per 10 carbs tid before a meal subq. insulin glargine (Lantus Solostar Pen) 64 Units Subcutaneous every day. am. insulin glargine (Lantus Solostar Pen) 62 Units Subcutaneous once a day (at bedtime). lisinopril (lisinopril 5 mg Tab) 1 Tablets By Mouth every day. meclizine (meclizine 25 mg Tab) 2 Tablets By Mouth 3 times a day. melatonin (melatonin 3 mg Tab) 1 Tablets By Mouth once a day (at bedtime) as needed for insomnia. metformin (metformin 500 mg oral tablet) 2 Tablets By Mouth 2 times a day. metoprolol (metoprolol 100 mg ER Tab) 1 Tablets By Mouth 2 times a day. prochlorperazine (Compazine 10 mg oral tablet) 0.5 Tablets By Mouth 3 times a day as needed Nausea. semaglutide (Ozempic) 1 Milligram Subcutaneous every week. PATIENT EDUCATION INFORMATION: Instructions: Hyperglycemia, Kwmk-un-Zvcz; Dehydration, Adult, Rghs-iq-Feug Follow up: With: Address: When: [place] [address] [place] [address] [facility] (1) In 3 days 04/04/2023 DIAGNOSIS: 1:Hyperglycemia; 2:Dehydration Normal [facility] ED Patient Education Noteon 04-02-2023 ED Patient Education Note Endocrinology Hyperglycemia Hyperglycemia is when the sugar (glucose) level in your blood is too high. High blood sugar can happen to people who have or do not have diabetes. High blood sugar can happen quickly. It can be an emergency. What are the causes? If you have diabetes, high blood sugar may be caused by: ? Medicines that increase blood sugar or affect your control of diabetes. ? Getting less physical activity. ? Overeating. ? Being sick or injured or having an infection. ? Having surgery. ? Stress. ? Not giving yourself enough insulin (if you are taking it). You may have high blood sugar because you have diabetes that has not been diagnosed yet. If you do not have diabetes, high blood sugar may be caused by: ? Certain medicines. ? Stress. ? A bad illness. ? An infection. ? Having surgery. ? Diseases of the pancreas. What increases the risk? This condition is more likely to develop in people who have risk factors for diabetes, such as: ? Having a family member with diabetes. ? Certain conditions in which the body's defense system (immune system) attacks itself. These are called autoimmune disorders. ? Being overweight. ? Not being active. ? Having a condition called insulin resistance. ? Having a history of: ? Prediabetes. ? Diabetes when . ? Polycystic ovarian syndrome (PCOS). What are the signs or symptoms? This condition may not cause symptoms. If you do have symptoms, they may include: ? Feeling more thirsty than normal. ? Needing to pee (urinate) more often than normal. ? Hunger. ? Feeling very tired. ? Blurry eyesight (vision). You may get other symptoms as the condition gets worse, such as: ? Dry mouth. ? Pain in your belly (abdomen). ? Not being hungry (loss of appetite). ? Breath that smells fruity. ? Weakness. ? Weight loss that is not planned. ? A tingling or numb feeling in your hands or feet. ? A headache. ? Cuts or bruises that heal slowly. How is this treated? Treatment depends on the cause of your condition. Treatment may include: ? Taking medicine to control your blood sugar levels. ? Changing your medicine or dosage if you take insulin or other diabetes medicines. ? Lifestyle changes. These may include: ? Exercising more. ? Eating healthier foods. ? Losing weight. ? Treating an illness or infection. ? Checking your blood sugar more often. ? Stopping or reducing steroid medicines. If your condition gets very bad, you will need to be treated in the hospital. Follow these instructions at home: General instructions ? Take xesj-txg-aglpprr and prescription medicines only as told by your doctor. ? Do not smoke or use any products that contain nicotine or tobacco. If you need help quitting, ask your doctor. ? If you drink alcohol: ? Limit how much you have to: ? 0?1 drink a day for women who are not . ? 0?2 drinks a day for men. ? Know how much alcohol is in a drink. In the [place] one drink equals one 12 oz bottle of beer (355 mL), one 5 oz glass of wine (148 mL), or one 1? oz glass of hard liquor (44 mL). ? Manage stress. If you need help with this, ask your doctor. ? Do exercises as told by your doctor. ? Keep all follow-up visits. Eating and drinking ? Stay at a healthy weight. ? Make sure you drink enough fluid when you: ? Exercise. ? Get sick. ? Are in hot temperatures. ? Drink enough fluid to keep your pee (urine) pale yellow. If you have diabetes: ? Know the symptoms of high blood sugar. ? Follow your diabetes management plan as told by your doctor. Make sure you: ? Take insulin and medicines as told. ? Follow your exercise plan. ? Follow your meal plan. Eat on time. Do not skip meals. ? Check your blood sugar as often as told. Make sure you check before and after exercise. If you exercise longer or in a different way, check your blood sugar more often. ? Follow your sick day plan whenever you cannot eat or drink normally. Make this plan ahead of time with your doctor. ? Share your diabetes management plan with people in your workplace, school, and household. ? Check your pee for ketones when you are ill and as told by your doctor. ? Carry a card or wear jewelry that says that you have diabetes. Where to find more information [place] [employer]: www.diabetes.org Contact a doctor if: ? Your blood sugar level is at or above 240 mg/dL (13.3 mmol/L) for 2 days in a row. ? You have problems keeping your blood sugar in your target range. ? You have high blood pressure often. ? You have signs of illness, such as: ? Feeling like you may vomit (feeling nauseous). ? Vomiting. ? A fever. Get help right away if: ? Your blood sugar monitor reads high even when you are taking insulin. ? You have trouble breathing. ? You have a change in how you think, feel, or act (mental status). ? You fe (more content not included)... Normal [facility] ED Patient Summaryon 023 ED Patient Summary (Inserted Image. [place] ble to display) [address] [address] Patient Discharge Instructions Person Information Name: MANNIE MICHEL Age: 62 Years Arrival Date: 04/01/2023 14:39:33 Discharge Diagnosis: 1:Hyperglycemia; 2:Dehydration Primary Care Physician: Janki Rdz MD Provider Information Primary Provider: [facility] [employer]:None The exam and treatment you received in the Emergency Department were for an urgent problem and are not intended as complete care. It is important that you follow up with a doctor, nurse practitioner, or physician?s legal executive assistant for ongoing care. If your symptoms become worse or you do not improve as expected and you are unable to reach your usual health care provider, you should return to the Emergency Department. We are available 24 hours a day. MANNIE MICHEL has been given the following list of patient education materials, prescriptions and follow-up instructions: Follow-up Instructions: With: Address: When: [address] [place] [place] [address] Business (1) In 3 days 04/04/2023 In the event that this physician does not participate in your insurance network, please consult with your insurance company to find a nearby participating provider. Patient Education Materials: Hyperglycemia, Wmct-yh-Tvjm; Dehydration, Adult, Asny-vy-Ynbv A MESSAGE TO ALL PATIENTS REGARDING OPIOIDS PRESCRIPTION OPIOIDS: WHAT YOU NEED TO KNOW Prescription opioids can be used to help relieve hmzdkqhq-tf-idsmmg pain and are often prescribed following a surgery or injury, or for certain health conditions. These medications can be an important part of the treatment but also come with serious risks. It is important to work with your healthcare provider to make sure you are getting the safest, most effective care. WHAT ARE THE RISKS AND SIDE EFFECTS OF OPIOID USE? Prescription opioids carry serious risks of addiction and overdose, especially with prolonged use. An opioid overdose, often marked by slowed breathing, can cause sudden . The use of prescription opioids can have a number of side effects as well, even when taken as directed: ? Tolerance?meaning you might need to take more of the medication for the same pain relief ? Physical dependence?meaning you have symptoms of withdrawal when a medication is stopped ? Increased sensitivity to pain ? Constipation ? Nausea, vomiting, and dry mouth ? Sleepiness and dizziness ? Confusion ? Depression ? Low levels of testosterone that can result in lower sex drive, energy, and strength ? Itching and sweating RISKS ARE GREATER WITH: ? History of drug misuse, substance use disorder, or overdose ? Mental health conditions (such as depression or anxiety) ? Sleep apnea ? Older age (65 years and older) ? Avoid alcohol while taking prescription opioids. Also, unless specifically advised by your health care provider, medications to avoid include: ? Benzodiazepines (such as Xanax or Valium) ? Muscle relaxants (such as Soma or Flexeril) ? Hypnotics (such as Ambien or Lunesta) ? Other prescription opioids KNOW YOUR OPTIONS Talk to your health care provider about ways to manage your pain that don?t involve prescription opioids. Some of these options may actually work better and have fewer risks and side effects. Options may include: ? Pain relievers such as acetaminophen, ibuprofen, and naproxen ? Some medication that are also used for depression or seizures ? Physical therapy and exercise ? Cognitive behavioral therapy, a psychological, goal-directed approach, in which patients learn how to modify physical, behavioral, and emotional triggers of pain and stress. IF YOU ARE PRESCRIBED OPIOIDS FOR PAIN: ? Never take opioids in greater amounts or more often than prescribed. ? Follow up with your primary health care provider. o Work together to create a plan on how to manage your pain. o Talk about ways to help manage your pain that don?t involve prescription opioids. o Talk about any and all concerns and side effects. ? Help prevent misuse and abuse o Never sell or share prescription opioids. o Never use another person?s prescription opioids. ? Store prescription opioids in a secure place and out of reach of others (this may include visitors, children, friends, and family). ? Safely dispose of unused prescription opioids: Find your community drug take-back program or your pharmacy mail-back program, or flush them down the toilet, following guidance from the Food and Drug Administration (www.fda.gov/Drugs/Resourc esForYou). ? Visit www.cdc.gov/drugoverdose to learn about the risks of opioids abuse and overdose. ? If you believe you may be struggling with addiction, tell your health respiratory care specialist and ask for guidance or call [facility]?S National Helpline at 9-719-401-CHSS. m Source (more content not included)... Normal [facility] Auto Diffon 04-01-2023 Basophils/100 WBC (Bld) 0.7 % Normal 0.0-2.[address] [facility] Comment on above: Order Comment: Order Added by Discern Expert. Performed By: #### 1 [id number], 8046254, 8151796, 08992015, 7465399, 034216477, 16084244, 4718033, 2698959 ####[facility] [address] [place] [address] Basophils/Leukocytes Auto (Bld) [Pure # fraction] 0.0 E9/L Normal 0.0-0.2 [facility] Comment on above: Order Comment: Order Added by Discern Expert. Performed By: #### 1 [id number], 9215285, 9410407, 46440990, 3620755, 746790129, 24805397, 2063894, 2734591 ####[facility] [address] [place] [address] Eosinophils/100 WBC (Bld) 1.6 % Normal 0.0-8.0 [facility] Comment on above: Order Comment: Order Added by Discern Expert. Performed By: #### 1 4924592, 1002715, 2672883, 94069084, 8895092, 532219225, 57933409, 3090409, 0723861 ####[facility] [address] [place] [address] Eosinophils/Leukocytes Auto (Bld) [Pure # fraction] 0.1 E9/L Normal 0.0-0.5 [facility] Comment on above: Order Comment: Order Added by Discern Expert. Performed By: #### 1 2417924, 0072691, 6806029, 23156230, 2648004, 786687573, 05615404, 4796005, 7745151 ####[facility] [address] [place] [address] Lymphocytes/100 WBC (Bld) 10.6 % Low 14.0-50.0 [facility] Comment on above: Order Comment: Order Added by Discern Expert. Performed By: #### 1 7719126, 6630376, 5063456, 55278653, 7589006, 046988448, 08119357, 7424545, 1225328 ####[facility] [address] [place] [address] Lymphocytes/Leukocytes Auto (Bld) [Pure # fraction] 0.7 E9/L Low 1.0-4.0 [facility] Comment on above: Order Comment: Order Added by Discern Expert. Performed By: #### 1 7012187, 2493424, 7806598, 29992249, 2938649, 047569342, 31111852, 3996570, 3947766 ####[place] [address] [place] [address] Monocytes/100 WBC (Bld) 9.3 % Normal 4.0-14.0 [facility] Comment on above: Order Comment: Order Added by Discern Expert. Performed By: #### 1 3309142, 0174526, 7358696, 77641271, 6797157, 544741895, 12256914, 8547959, 5052496 ####[place] [address] [place] [address] Monocytes/Leukocytes Auto (Bld) [Pure # fraction] 0.6 E9/L Normal 0.2-1.0 [facility] Comment on above: Order Comment: Order Added by Discern Expert. Performed By: #### 1 5607439, 1232438, 5546037, 73896160, 9831752, 389653817, 69019702, 1137379, 9399112 ####[place] [address] [place] [address] Neutrophils/100 WBC (Bld) 77.8 % High 36.0-75.0 [facility] Comment on above: Order Comment: Order Added by Discern Expert. Performed By: #### 1 7953858, 5273996, 1416952, 90266488, 0952242, 548733475, 91668436, 8041123, 8161397 ####[facility] [address] [place] [address] Neutrophils/Leukocytes Auto (Bld) [Pure # fraction] 5.3 E9/L Normal 2.0-7.5 [facility] Comment on above: Order Comment: Order Added by Discern Expert. Performed By: #### 1 7910024, 1260013, 5342240, 84929222, 1665206, 203311470, 11048973, 7082142, 3480108 ####[facility] [address] [place] [address] BMPon 04-01-2023 Creatinine [Mass/Vol] 1.0 mg/dL Normal 0.5-1.3 [facility] Comment on above: Performed By: #### 1 2052371, 6321645, 6816667, 74131492, 2966549, 988479268, 26190677, 6177931, 2514903 ####[facility] [address] [place] [address] Urea nitrogen [Mass/Vol] 11 mg/dL Normal 5-21 [facility] Comment on above: Performed By: #### 1 9969024, 6129701, 8118632, 31635298, 1991598, 128129177, 16111757, 4227650, 7231441 ####[facility] [address] [place] [address] Urea nitrogen/Creatinine [Mass ratio] 11 No Units Normal 10-20 [facility] Comment on above: Performed By: #### 1 5662329, 1567001, 8844144, 04343675, 4261632, 411261505, 12634791, 9704783, 1701136 ####[facility] [address] [place] [address] Anion gap [Moles/Vol] 16 mmol/L Normal 6-16 [facility] Comment on above: Performed By: #### 1 0523566, 8579824, 6459752, 47743917, 5680609, 481716796, 56946823, 0852738, 8690054 ####[facility] [address] [place] [address] Calcium [Mass/Vol] 9.2 mg/dL Normal 8.9-11.1 [facility] Comment on above: Performed By: #### 1 0619115, 2762502, 6487389, 10900118, 4054505, 790889089, 35530266, 4703949, 1073269 ####[facility] [address] [place] [address] Chloride [Moles/Vol] 99 mmol/L Low 101-[address] [facility] Comment on above: Performed By: #### 1 7970515, 2207940, 3763372, 88613405, 7887810, 836441989, 44633605, 4199763, 7006547 ####[facility] [address] [place] [address] CO2 [Moles/Vol] 26 mmol/L Normal 21-31 [facility] Comment on above: Performed By: #### 1 1815168, 6144624, 8517785, 47760797, 2471908, 537394257, 35390946, 2341497, 2218942 ####[facility] [address] [place] [address] Glucose [Mass/Vol] 335 mg/dL High 55-199 [facility] Comment on above: Result Comment: If t his glucose result represents a fasting glucose, interpretation should refer to the following reference range: 55-99 mg/dL Performed By: #### 1 1484369, 2515475, 0239783, 41026899, 7248342, 622042937, 25921874, 0925277, 3597529 ####[facility] [address] [place] [address] Potassium [Moles/Vol] 4.3 mmol/L Normal 3.5-5.3 [facility] Comment on above: Performed By: #### 1 1411558, 3484884, 7393138, 91971231, 4123253, 213025397, 23806164, 6290437, 3191821 ####[facility] [address] [place] [address] Sodium [Moles/Vol] 137 mmol/L Normal 135-145 [facility] Comment on above: Performed By: #### 1 4016714, 5970825, 5189735, 31873372, 9142512, 156591135, 83516383, 4708365, 2188695 ####[facility] [address] [place] [address] BOHBon 04-01-2023 Beta hydroxybutyrate [Moles/Vol] 0.46 mmol/L High 0.02-0.27 [facility] Comment on above: Performed By: #### 1 6232892, 8794620, 8698504, 40744281, 6034365, 410837107, 41470340, 7715961, 2980785 ####[facility] [address] [place] [address] CBC w/ Auto Diffon Erythrocyte distribution width (RBC) [Ratio] 14.0 % Normal 10.9-14.2 [facility] Comment on above: Performed By: #### 1 6638685, 3237838, 2603652, 03995865, 2739699, 020937530, 60629764, 0547502, 2115336 ####[place] [address] [place] [address] Hematocrit (Bld) [Volume fraction] 43.4 % Normal 37.7-49.0 [facility] Comment on above: Performed By: #### 1 4132175, 4263889, 9055422, 98148806, 1894952, 678298635, 97430989, 2098986, 4602020 ####[facility] [address] [place] [address] Hemoglobin (Bld) [Mass/Vol] 15.0 g/dL Normal 13.5-17.5 [facility] Comment on above: Performed By: #### 1 4719772, 8517049, 9626637, 89300615, 4010111, 881044605, 54806629, 3133320, 1582295 ####[facility] [address] [place] [address] MCH (RBC) [Entitic mass] 28.2 pg Normal 27.0-34.0 [facility] Comment on above: Performed By: #### 1 [id number], 9845010, 3246032, 83145291, 0608432, 707169189, 31437480, 5184267, 6930415 ####[facility] [address] [place] [address] MCHC (RBC) [Mass/Vol] 34.5 g/dL Normal 31.4-36.0 [facility] Comment on above: Performed By: #### 1 8619920, 9954396, 7770510, 32649742, 3345935, 884200839, 11870248, 3126619, 2177578 ####[facility] [address] [place] [address] MCV (RBC) [Entitic vol] 81.6 fL Normal 80.0-100.[address] [facility] Comment on above: Performed By: #### 1 4277387, 5984909, 1427557, 67537989, 2069554, 567122915, 60586489, 6045732, 3067207 ####[facility] [address] [place] [address] Platelet mean volume (Bld) [Entitic vol] 9.5 fL Normal 6.4-10.8 [facility] Comment on above: Performed By: #### 1 5249586, 6729521, 6695129, 29527255, 0606108, 694865652, 70251910, 6567044, 8966748 ####[facility] [address] [place] [address] Platelets (Bld) [#/Vol] 195.0 E9/L Normal 150. 0-500. 0 [facility] Comment on above: Performed By: #### 1 5433527, 9922592, 1660913, 47055481, 6055045, 584011498, 42316441, 5416756, 3399834 ####[facility] [address] [place] [address] RBC (Bld) [#/Vol] 5.3 E12/L Normal 4.3-5.9 [facility] Comment on above: Performed By: #### 1 7936080, 0280083, 5111468, 19915563, 2015304, 082517653, 92175849, 7429156, 0908260 ####[facility] [address] [place] [address] WBC corrected for nucl RBC Auto (Bld) [#/Vol] 6.8 E9/L Normal 4.0-11.0 [facility] Comment on above: Performed By: #### 1 7803152, 8564295, 6827231, 06573840, 7372995, 873646196, 09227774, 5498790, 4752436 ####[facility] [address] [place] [address] CT Head or Brain w/o Contras ton 04-01-2023 CT Head or Brain w/o Contrast Exam Date/Time: 04/01/2023 18:50 EDT Reason for Exam: Head trauma, moderate-severe;Other (please specify) Report IMPRESSION: No acute intracranial process. EXAMINATION: CT Head or Brain w/o Contrast HISTORY: Head trauma, moderate-severe. TECHNIQUE: Serial axial images without IV contrast were obtained from the vertex to the foramen magnum, with sagittal and coronal reconstructions. All CT scans at this facility use dose modulation, iterative reconstruction, and/or weight based dosing when appropriate to reduce radiation dose to as low as reasonably achievable. COMPARISON: None. RESULT: Acute change: No evidence of an acute contusion or other acute parenchymal process. Hemorrhage: No evidence of acute intracranial hemorrhage. Mass Lesion / Mass Effect: There is no evidence of an intracranial mass or extraaxial fluid collection. No significant mass effect. Chronic change: None apparent. Parenchyma: There is mild generalized volume loss. Ventricles: The ventricles are within normal limits of size and configuration for age. Paranasal sinuses and skull base: The visualized paranasal sinuses are grossly clear. Mastoid air cells clear. The skull base is unremarkable. Soft tissues unremarkable. Report Ordering Provider: Iwona Davey FINAL REPORT Dictated: 04/01/2023 7:11 pm Rios Bear MD Signed (Electronic Signature): 04/01/2023 7:11 pm Signed by: Rios Bear MD Transcribed by: ROOSEVELT Technologist: [facility] Normal [facility] Consent for Treatmenton Consent for Treatment [id number]:127 Normal [facility] Hep Func Panelon 04-01-2023 Albumin [Mass/Vol] 3.4 g/dL Normal 3.3-5.0 [facility] Comment on above: Performed By: #### 1 6391559, 3611753, 7319741, 20875675, 6726634, 395548715, 94662677, 1720205, 1398305 ####[facility] [address] [place] [address] Albumin/Globulin (S) [Mass conc ratio] 1.0 Low 1.1-2.2 [facility] Comment on above: Performed By: #### 1 2582574, 6017943, 9037498, 13419009, 6888615, 706779458, 79739816, 4448393, 8062701 ####[facility] [address] [place] [address] ALP [Catalytic activity/Vol] 91 Int._Unit/L Normal 21-98 [facility] Comment on above: Performed By: #### 1 5979041, 2673477, 3295198, 97322210, 5940284, 980974105, 16188322, 3094551, 5422717 ####[facility] [address] [place] [address] ALT No additional P-5'-P [Catalytic activity/Vol] 29 Int._Unit/L Normal 6-46 [facility] Comment on above: Performed By: #### 1 5869284, 1372793, 6493537, 25295652, 9731918, 021072367, 57625595, 2735144, 5591848 ####[facility] [address] [place] [address] AST [Catalytic activity/Vol] 31 Int._Unit/L Normal 5-43 [facility] Comment on above: Performed By: #### 1 1705398, 4351453, 7191799, 46069059, 9937526, 560169700, 90775876, 3589433, 8319276 ####[place] [address] [place] [address]57 Bilirubin [Mass/Vol] 0.6 mg/dL Normal 0.0-1.1 [facility] Comment on above: Performed By: #### 1 7630844, 3572663, 5335432, 19140815, 4203118, 121992419, 96291526, 1078857, 5178509 ####[facility] [address] [place], [place] [address] Bilirubin.direct [Mass/Vol] 0.1 mg/dL Normal 0.1-0.4 [facility] Comment on above: Performed By: #### 1 1789802, 4668709, 4475098, 78965316, 6325307, 980024640, 24426165, 6831074, 1755839 ####[facility] [address] [place] [address] Bilirubin.indirect [Mass or moles/Vol] 0.5 mg/dL Normal 0.1-0.9 [facility] Comment on above: Performed By: #### 1 0885464, 1283042, 0660381, 25494571, 6519281, 798231541, 39797148, 0207917, 8593887 ####[facility] [address] [place] [address] Globulin (S) [Mass/Vol] 3.3 g/dL Normal 1.4-4.[address] [facility] Comment on above: Performed By: #### 1 1656474, 0991604, 7281800, 91603583, 1293162, 033139759, 11257769, 0226684, 8089632 ####[facility] [address] [place] [address] Protein [Mass/Vol] 6.7 g/dL Normal 6.0-7.8 [facility] Comment on above: Performed By: #### 1 7883473, 0546168, 8134516, 61264851, 8004420, 220393273, 81133766, 1005167, 0167677 ####[facility] [address] [place] [address] Magnesiumon 04-01-2023 Magnesium [Mass/Vol] 1.3 mg/dL Normal 1.3-2.4 [facility] Comment on above: Performed By: #### 1 5669681, 4938741, 2625058, 04341328, 2599245, 052906091, 92309368, 7304370, 4354008 ####[facility] [address] [place] [address] Monitor Recordon 04-01-2023 Monitor Record [id number]:127 Normal [facility] Monitor Record [id number]#[id number]:127 Normal [facility] Monitor Record [id number]#[id number]:127 Normal [facility] PT & PTTon 04-01-2023 aPTT Coag (PPP) [Time] 33.0 second(s) Normal 25.1-36.5 [facility] Comment on above: Result Comment: Para meter 15 days - 4 weeks 1 - 5 months 6 - 11 months 1 - 5 years 6 - 10 years 11 - 17 years PTT Mean: 35.4 (27.6-45.6) Mean: 33.5 (24.8-40.7) Mean: 32.4 (25.1-40.7) Mean: 31.6 (24.0-39.2) Mean: 31.6 (26.9-38.7) Mean: 31.0 (24.6-38.4) Pediatric Reference ranges were obtained from a study by Jeremi Ahmadi et al. prepared from 1437 samples obtained at 7 different centers using the same coagulation reagent and instrumentation as [facility]. Currently there are no coagulation studies available worldwide for children to 14 days, and no normal ranges. Heparin therapeutic range (represented by Anti-Factor Xa activity of 0.2 - 0.4 U/mL) corresponds to PTT of 56.6 - 109.0 sec. Performed By: #### 1 7061036, 0276139, 4951227, 99601342, 5037088, 245511527, 56068412, 7038545, 8742255 ####[facility] [address] [place] [address] INR Coag (PPP) [Relative time] 1.0 {INR} Invalid Interpretation Code [facility] Comment on above: Result Comment: INR results are specifically intended to assess patients stabilized on long-term Anticoagulation therapy suggested INR?s ?Less Intensive Anticoagulation? 2.0 ? 3.0 Conventional Range 3.0 ? 4.5 Performed By: #### 1 4476795, 5842709, 6376602, 96544380, 3019195, 147122680, 71643242, 0838659, 7931205 ####[facility] [address] [place] [address] PT Coag (PPP) [Time] 11.2 second(s) Normal 9.4-12.5 [facility] Comment on above: Result Comment: 15 d ays - 4 weeks 1 - 5 months 6 -11 months 1 ? 5 years 6 ? 10 years 11 -17 years Mean: 11.2 (9.5 ? 12.6) Mean: 11.0 (9.7 ? 12.8) Mean: 11.0 (9.8 ? 13.0) Mean: 11.3 (9.9 ? 13.4) Mean: 11.7 (10.0 ? 14.6) Mean: 11.8 (10.0 - 14.1) Pediatric Reference ranges were obtained from a study by Jeremi Ahmadi et al. prepared from 1437 samples obtained at 7 different centers using the same coagulation reagent and instrumentation as [facility]. Currently there are no coagulation studies available worldwide for children to 14 days, and no normal ranges. Performed By: #### 1 3771174, 8929998, 8809518, 98352334, 8321516, 283630387, 18161457, 3932992, 7586996 ####[facility] [address] [place] [address] Troponin 0 Hr.on 04-01-2023 Troponin I.cardiac [Mass/Vol] 8.50 pg/mL Low 15.90-38.4 0 [facility] Comment on above: Result Comment: The 95% CI (Confidence Interval) PPV (Positive Predictive Value) for myocardial infarction in females is 38 pg/mL, in males 51 pg/mL. The results should be used in conjunction with clinical conditions of myocardial infarction. (Access High Sensitivity Troponin I Instructions For Use, [employer], March 2018) Performed By: #### 1 8791702, 8495112, 9151066, 54467796, 2316354, 228402544, 99540271, 9726582, 4771380 ####[facility] [address] [place] [address] Troponin 3 Hr.on 04-01-2023 Troponin I.cardiac [Mass/Vol] 7.50 pg/mL Low 15.90-38.4 0 [facility] Comment on above: Result Comment: The 95% CI (Confidence Interval) PPV (Positive Predictive Value) for myocardial infarction in females is 38 pg/mL, in males 51 pg/mL. The results should be used in conjunction with clinical conditions of myocardial infarction. (Access High Sensitivity Troponin I Instructions For Use, [employer], March 2018) Performed By: #### 1 [id number] ####[facility] [address] [place] [address] UA With Cult Reflexon 2022 Bacteria LM Ql (Urine sed) TRACE Normal Trace [facility] Comment on above: Performed By: #### 1 7867630 ####[facility] [address] [place] [address] Bilirubin Ql (U) Negative Normal Negative [facility] Comment on above: Performed By: #### 1 6988833 ####[address] [address] Clarity (U) CLEAR Normal Clear [facility] Comment on above: Performed By: #### 1 0626248 ####[address] [address] Color (U) YELLOW Normal Yellow [facility] Comment on above: Performed By: #### 1 8085238 ####[address] [address] Epithelial cells.squamous LM.HPF (Urine sed) [#/Area] 0-2 Normal 0-2 [facility] Comment on above: Performed By: #### 1 3235977 ####[address] [address] Glucose Test strip (U) [Mass/Vol] 3+ Abnormal Negative [facility] Comment on above: Performed By: #### 1 5139227 ####[address] [address] Hemoglobin Ql (U) Negative Normal Negative [facility] Comment on above: Performed By: #### 1 7839198 ####[facility] [address] [place] [address] Ketones (U) [Mass/Vol] Negative Normal Negative [facility] Comment on above: Performed By: #### 1 8761888 ####[facility] [address] [place] [address] [place].plasma/[place]. RBC (Bld) [Mass ratio] 0-3 Normal 0-3 [facility] Comment on above: Performed By: #### 1 3525527 ####[facility] [address] [place] [address] Nitrite Ql (U) Negative Normal Negative [facility] Comment on above: Performed By: #### 1 3318679 ####[address] [address] pH (U) 5.5 [pH] Invalid Interpretation Code 5.0-9.0 [facility] Comment on above: Performed By: #### 1 2912552 ####[address] [address] Protein (U) [Mass/Vol] Negative Normal Negative [facility] Comment on above: Performed By: #### 1 4067600 ####[address] [address] Specific gravity (U) [Rel density] 1.015 Invalid Interpretation Code 1.005-1.03 0 [facility] Comment on above: Performed By: #### 1 0948473 ####[address] [address] Type of Urine collection method Clean Catch Normal [facility] Comment on above: Performed By: #### 1 9198752 ####[address] [address] Urobilinogen Qn (U) 0.2 {Farhana'U}/dL Normal 0.0-1.0 [facility] Comment on above: Performed By: #### 1 0699905 ####[address] [address] WBC Auto Ql (U) Negative Normal Negative [facility] Comment on above: Performed By: #### 1 9847393 ####[address] [address] WBC LM.HPF (Urine sed) [#/Area] 0-5 Normal 0-5 [facility] Comment on above: Performed By: #### 1 9268692 ####[address] [address] XR Chest Single Viewon 04-01 XR Chest Single View Exam Date/Time: 04/01/2023 15:49 EDT Reason for Exam: Shortness of breath (SOB) Report IMPRESSION: NO RADIOGRAPHIC EVIDENCE OF ACUTE INTRATHORACIC PROCESS. EXAM: XR Chest Single View History: Shortness of breath Technique: Portable AP view of the chest. Comparison: Chest radiographs 08/19/2019 Findings: The cardiomediastinal silhouette is within normal limits. No pneumothorax, pleural effusion, or consolidation. Bones of the thorax appear intact. Ordering Provider: Iwona Davey FINAL REPORT Dictated: 04/01/2023 4:56 pm Tiburcio Hernandez DO Signed (Electronic Signature): 04/01/2023 4:56 pm Signed by: Tiburcio Hernandez DO Transcribed by: ROOSEVELT Technologist: SINDY Technical Comments Radiation Dose: Ka,r in mGy = na DAP = na Normal [facility] eGFRon 04-01-2023 GFR/1.73 sq M.predicted among non-blacks MDRD (S/P/Bld) [Vol rate/Area] 86 mL/min/1.73 m2 Normal >=59 [facility] Comment on above: Order Comment: Order added by Discern Expert. Result Comment: Branch Mechanic aspen kidney disease could be indicated at eGFR's of less than 60 mL/min/1.73m2. Kidney failure is indicated at less than 15 mL/min/1.73m2. Performed By: #### 1 1544515, 4402707, 0551938, 56869416, 4375652, 360496604, 17637258, 0300602, 1897657 ####[facility] [address] [place] [address] Basophils Auto (Bld) [#/Vol] Ordered By: Yunior Singh on 03-30-2023 Basophils (Bld) [#/Vol] 0.0 10*3/uL 0.0-0.2 [facility] Basophils/100 WBC Auto (Bld) Ordered By: Yunior Singh on 03-30-2023 Basophils/100 WBC (Bld) 0.4 % . [facility] Calcium [Mass/volume] in Ser um or PlasmaOrdered By: Yunior Singh on 03-30-2023 Calcium [Mass/Vol] 8.4 mg/dL 8.6-10.3 [facility] Carbon dioxide, total [Moles /volume] in Serum or PlasmaOrdered By: Yunior Singh on 03-30-2023 CO2 [Moles/Vol] 27.9 mmol/L 21.0-31.0 [facility] Chloride [Moles/volume] in S lian or PlasmaOrdered By: Yunior Singh on 03-30-2023 Chloride [Moles/Vol] 103 mmol/L 98-107 [facility] Creatinine [Mass/volume] in Serum or PlasmaOrdered By: Yunior Singh on 03-30-2023 Creatinine [Mass/Vol] 0.85 mg/dL 0.70-1.30 [facility] Eosinophils Auto (Bld) [#/Vo l]Ordered By: Yunior Singh on 03-30-2023 Eosinophils (Bld) [#/Vol] 0.1 10*3/uL 0.0-0.45 [facility] Eosinophils/100 WBC Auto (Bl d)Ordered By: Yunior Singh on 03-30-2023 Eosinophils/100 WBC (Bld) 3.2 % . [facility] Erythrocyte distribution wid th Auto (RBC) [Ratio]Ordered By: Yunior Singh on 03-30-2023 Erythrocyte distribution width (RBC) [Ratio] 14.3 % 12.0-14.8 [facility] Glucose Glucometer (BldC) [M ass/Vol]Ordered By: Yunior Singh on 03-30-2023 Glucose [Mass/Vol] 281 mg/dL [facility] Comment on above: Random Glucose Refer ence Range is dependent on time and content of last meal. Glucose of more than 200 mg/dL in a nonstressed, ambulatory subject supports the diagnosis of Diabetes Mellitus. Glucose [Mass/Vol] 341 mg/dL [facility] Comment on above: Random Glucose Refer ence Range is dependent on time and content of last meal. Glucose of more than 200 mg/dL in a nonstressed, ambulatory subject supports the diagnosis of Diabetes Mellitus. Glucose [Mass/volume] in Ser um or PlasmaOrdered By: Yunior Singh on 03-30-2023 Glucose [Mass/Vol] 213 mg/dL 70-100 [facility] Comment on above: ADA recommended refe rence rangeRandom Glucose Reference Range is dependent on time and content of last meal. Glucose of more than 200 mg/dL in a nonstressed, ambulatory subject supports the diagnosis of Diabetes Mellitus. Hematocrit Auto (Bld) [Volum e fraction]Ordered By: Yunior Singh on 03-30-2023 Hematocrit (Bld) [Volume fraction] 40.8 % 38.8-50.0 [facility] Hemoglobin [Mass/volume] in BloodOrdered By: Yunior Singh on 03-30-2023 Hemoglobin (Bld) [Mass/Vol] 14.1 g/dL 13.0-17.0 [facility] Leukocytes [#/volume] correc darnell for nucleated erythrocytes in Blood by Automated counOrdered By: Yunior Singh on 03-30-2023 WBC corrected for nucl RBC Auto (Bld) [#/Vol] 4.4 10*3/uL 4.1-10.5 [facility] Lymphocytes Auto (Bld) [#/Vo l]Ordered By: Yunior Singh on 03-30-2023 Lymphocytes (Bld) [#/Vol] 1.4 10*3/uL 1.00-4.8 [facility] Lymphocytes/100 WBC Auto (Bl d)Ordered By: Yunior Singh on 03-30-2023 Lymphocytes/100 WBC (Bld) 30.9 % . [facility] MCH Auto (RBC) [Entitic mass ]Ordered By: Yunior Singh on 03-30-2023 MCH (RBC) [Entitic mass] 28.2 pg 27.5-35.2 [facility] MCHC Auto (RBC) [Mass/Vol]Or dered By: Yunior Singh on 03-30-2023 MCHC (RBC) [Mass/Vol] 34.5 g/dL 32.5-35.6 [facility] MCV Auto (RBC) [Entitic vol] Ordered By: Yunior Singh on 03-30-2023 MCV (RBC) [Entitic vol] 81.7 fL 83.5-101 [facility] Monocytes Auto (Bld) [#/Vol] Ordered By: Yunior Singh on 03-30-2023 Monocytes (Bld) [#/Vol] 0.6 10*3/uL 0.0-0.8 [facility] Monocytes/100 WBC Auto (Bld) Ordered By: Yunior Singh on 03-30-2023 Monocytes/100 WBC (Bld) 14.3 % . [facility] Neutrophils Auto (Bld) [#/Vo l]Ordered By: Yunior Singh on 03-30-2023 Neutrophils (Bld) [#/Vol] 2.3 10*3/uL 1.8-7.7 [facility] Neutrophils/100 WBC Auto (Bl d)Ordered By: Yunior Singh on 03-30-2023 Neutrophils/100 WBC (Bld) 51.2 % . [facility] No Panel InformationOrdered By: Yunior Singh on 03-30-2023 Bedside Glucose Comment Glu2: cleaned meter [facility] Estimated GFR (CKD-EPI) > 60.0 mL/Min [facility] Creatinine Clearance (Chem 121.59 [facility] Nucleated erythrocytes [Pres ence] in Blood by Automated countOrdered By: Yunior Singh on 03-30-2023 Nucleated RBC Auto Ql (Bld) 0.1 /100{WBC} 0-0.5 [facility] Platelet mean volume Auto (B ld) [Entitic vol]Ordered By: Yunior Singh on 03-30-2023 Platelet mean volume (Bld) [Entitic vol] 8.7 fL 6.6-10.1 [facility] Platelets Auto (Bld) [#/Vol] Ordered By: Yunior Singh on 03-30-2023 Platelets (Bld) [#/Vol] 148 10*3/uL 150-450 [facility] Potassium [Moles/volume] in Serum or PlasmaOrdered By: Yunior Singh on 03-30-2023 Potassium [Moles/Vol] 3.7 mmol/L 3.5-5.1 [facility] RBC Auto (Bld) [#/Vol]Ordere d By: Yunior Singh on 03-30-2023 RBC (Bld) [#/Vol] 4.99 10*6/uL 3.90-5.60 [facility] Serum or plasma anion gap de terminationOrdered By: Yunior Singh on 03-30-2023 Anion gap [Moles/Vol] 9.8 mmol/L 6.0-15.0 [facility] Sodium [Moles/volume] in Ser um or PlasmaOrdered By: Yunior Singh on 03-30-2023 Sodium [Moles/Vol] 137 mmol/L 136-145 [facility] Urea nitrogen [Mass/volume] in Serum or PlasmaOrdered By: Yunior Singh on 03-30-2023 Urea nitrogen [Mass/Vol] 11 mg/dL 03-18 [facility] WBC Auto (Bld) [#/Vol]Ordere d By: Yunior Singh on 03-30-2023 WBC (Bld) [#/Vol] 4.4 10*3/uL 4.1-10.5 [facility] Glucose mean value [Mass/vol ume] in Blood Estimated from glycated hemoglobinOrdered By: Yunior Singh on 03-27-2023 Average glucose Estimated from glycated hemoglobin (Bld) [Mass/Vol] 275 mg/dL [facility] Hemoglobin A1c percentageOrd ered By: Yunior Singh on 03-27-2023 HbA1c (Bld) [Mass fraction] 11.2 % 4.3-5.6 [facility] Comment on above: Increased risk for d iabetes: 5.7 - 6.4diabetes: >6.4glycemic control for adults with diabetes: <7.0 Activated partial thrombopla stin time (aPTT) in platelet poor plasma by coagulation aOrdered By: Darrel Lucero on 03-26-2023 aPTT Coag (PPP) [Time] 34.1 s 25.1-36.5 [facility] Alanine aminotransferase [En zymatic activity/volume] in Serum or PlasmaOrdered By: Darrel Lucero on 03-26-2023 ALT [Catalytic activity/Vol] 26 U/L [facility] Albumin [Mass/volume] in Ser um or Plasma by Bromocresol green (BCG) dye binding methoOrdered By: Darrel Lucero on 03-26-2023 Albumin BCG dye [Mass/Vol] 4.7 g/dL 3.5-5.7 [facility] Alkaline phosphatase [Enzyma tic activity/volume] in Serum or PlasmaOrdered By: Darrel Lucero on 03-26-2023 ALP [Catalytic activity/Vol] 120 U/L 34-104 [facility] Aspartate aminotransferase [ Enzymatic activity/volume] in Serum or PlasmaOrdered By: Darrel Lucero on 03-26-2023 AST [Catalytic activity/Vol] 18 U/L 13-39 [facility] Automated erythrocytes count in urine sediment (number/area)Ordered By: James Leach on 03-26-2023 RBC Auto (Urine sed) [#/Area] 0-1 [HPF] 0-4 [facility] Automated leukocytes count i n urine sediment (number/area)Ordered By: James Leach on 03-26-2023 WBC Auto (Urine sed) [#/Area] None seen [HPF] 0-4 [facility] Basophils Auto (Bld) [#/Vol] Ordered By: Darrel Lucero on 03-26-2023 Basophils (Bld) [#/Vol] 0.1 10*3/uL 0.0-0.2 [facility] Basophils/100 WBC Auto (Bld) Ordered By: Darrel Lucero on 03-26-2023 Basophils/100 WBC (Bld) 0.7 % . [facility] Beta hydroxybutyrate [Moles/ volume] in Serum or PlasmaOrdered By: James Leach on 03-26-2023 Beta hydroxybutyrate [Moles/Vol] 8.00 mmol/L 0.02-0.27 [facility] Bilirubin Test strip Ql (U)O rdered By: James Leach on 03-26-2023 Bilirubin Ql (U) Negative Negative [facility] Bilirubin.direct [Mass/volum e] in Serum or PlasmaOrdered By: Darrel Lucero on 03-26-2023 Bilirubin.direct [Mass/Vol] 0.10 mg/dL 0.03-0.18 [facility] Bilirubin.total [Mass/volume ] in Serum or PlasmaOrdered By: Darrel Lucero on 03-26-2023 Bilirubin [Mass/Vol] 0.4 mg/dL 0.3-1.0 [facility] Calcium [Mass/volume] in Ser um or PlasmaOrdered By: Darrel Lucero on 03-26-2023 Calcium [Mass/Vol] 9.8 mg/dL 8.6-10.3 [facility] Carbon dioxide, total [Moles /volume] in Serum or PlasmaOrdered By: Darrel Lucero on 03-26-2023 CO2 [Moles/Vol] 11.9 mmol/L 21.0-31.0 [facility] Chloride [Moles/volume] in S lian or PlasmaOrdered By: Darrel Lucero on 03-26-2023 Chloride [Moles/Vol] 97 mmol/L 98-107 [facility] Color Auto (U)Ordered By: Owen Leach on 03-26-2023 Color (U) Yellow Yellow [facility] Creatinine [Mass/volume] in Serum or PlasmaOrdered By: Darrel Lucero on 03-26-2023 Creatinine [Mass/Vol] 1.27 mg/dL 0.70-1.30 [facility] Eosinophils Auto (Bld) [#/Vo l]Ordered By: Darrel Lucero on 03-26-2023 Eosinophils (Bld) [#/Vol] 0.0 10*3/uL 0.0-0.45 [facility] Eosinophils/100 WBC Auto (Bl d)Ordered By: Darrel Lucero on 03-26-2023 Eosinophils/100 WBC (Bld) 0.3 % . [facility] Erythrocyte distribution wid th Auto (RBC) [Ratio]Ordered By: Darrel Lucero on 03-26-2023 Erythrocyte distribution width (RBC) [Ratio] 14.6 % 12.0-14.8 [facility] Globulin Calc (S) [Mass/Vol] Ordered By: Darrel Lucero on 03-26-2023 Globulin (S) [Mass/Vol] 3.6 g/dL [facility] Glucose [Mass/volume] in Ser um or PlasmaOrdered By: Darrel Lucero on 03-26-2023 Glucose [Mass/Vol] 263 mg/dL 70-100 [facility] Comment on above: ADA recommended refe rence rangeRandom Glucose Reference Range is dependent on time and content of last meal. Glucose of more than 200 mg/dL in a nonstressed, ambulatory subject supports the diagnosis of Diabetes Mellitus. Hematocrit Auto (Bld) [Volum e fraction]Ordered By: Darrel Lucero on 03-26-2023 Hematocrit (Bld) [Volume fraction] 53.3 % 38.8-50.0 [facility] Hemoglobin [Mass/volume] in BloodOrdered By: Darrel Lucero on 03-26-2023 Hemoglobin (Bld) [Mass/Vol] 17.5 g/dL 13.0-17.0 [facility] Ketones Auto test strip (U) [Mass/Vol]Ordered By: James Leach on 03-26-2023 Ketones (U) [Mass/Vol] 4+ Negative Fi [facility] Laboratory - Chemistry and C hemistry - challengeOrdered By: James Leach on 03-26-2023 CO2 [Moles/Vol] 11.7 mmol/L 24.0-29.0 [facility] HCO3 (Bld) [Moles/Vol] 10.6 mmol/L 23.0-29.0 [facility] Laboratory - CoagulationOrde red By: Darrel Lucero on 03-26-2023 PT Coag (PPP) [Time] 10.7 s 9.0-12.9 [facility] Laboratory - UrinalysisOrder ed By: James Leach on 03-26-2023 Hyaline casts LM Ql (Urine sed) None seen [LPF] 0-8 [facility] Lactate [Moles/volume] in Se rum or PlasmaOrdered By: James Leach on 03-26-2023 Lactate [Moles/Vol] 1.2 mmol/L 0.5-2.2 [facility] Leukocytes [#/volume] correc darnell for nucleated erythrocytes in Blood by Automated counOrdered By: Darrel Lucero on 03-26-2023 WBC corrected for nucl RBC Auto (Bld) [#/Vol] 9.0 10*3/uL 4.1-10.5 [facility] Lipase [Enzymatic activity/v olume] in Serum or PlasmaOrdered By: Darrel Lucero on 03-26-2023 Lipase [Catalytic activity/Vol] 42.0 U/L 11.0-82.0 [facility] Lymphocytes Auto (Bld) [#/Vo l]Ordered By: Darrel Lucero on 03-26-2023 Lymphocytes (Bld) [#/Vol] 0.6 10*3/uL 1.00-4.8 [facility] Lymphocytes/100 WBC Auto (Bl d)Ordered By: Darrel Lucero on 03-26-2023 Lymphocytes/100 WBC (Bld) 6.3 % . [facility] MCH Auto (RBC) [Entitic mass ]Ordered By: Darrel Lucero on 03-26-2023 MCH (RBC) [Entitic mass] 27.8 pg 27.5-35.2 [facility] MCHC Auto (RBC) [Mass/Vol]Or dered By: Darrel Lucero on 03-26-2023 MCHC (RBC) [Mass/Vol] 32.8 g/dL 32.5-35.6 [facility] MCV Auto (RBC) [Entitic vol] Ordered By: Darrel Lucero on 03-26-2023 MCV (RBC) [Entitic vol] 84.8 fL 83.5-101 [facility] Magnesium [Mass/volume] in S lian or PlasmaOrdered By: Yunior Singh on 03-26-2023 Magnesium [Mass/Vol] 2.0 mg/dL 1.9-2.7 [facility] Monocyte distribution width [Entitic volume] in Blood by AutomatedOrdered By: Darrel Lucero on 03-26-2023 Monocyte distribution width Auto (Bld) [Entitic vol] 16.91 % 0.00-20.00 [facility] Monocytes Auto (Bld) [#/Vol] Ordered By: Darrel Lucero on 03-26-2023 Monocytes (Bld) [#/Vol] 0.5 10*3/uL 0.0-0.8 [facility] Monocytes/100 WBC Auto (Bld) Ordered By: Darrel Lucero on 03-26-2023 Monocytes/100 WBC (Bld) 5.3 % . [facility] Neutrophils Auto (Bld) [#/Vo l]Ordered By: Darrel Lucero on 03-26-2023 Neutrophils (Bld) [#/Vol] 7.9 10*3/uL 1.8-7.7 [facility] Neutrophils/100 WBC Auto (Bl d)Ordered By: Darrel Lucero on 03-26-2023 Neutrophils/100 WBC (Bld) 87.4 % . [facility] Nitrite Test strip Ql (U)Ord ered By: James Leach on 03-26-2023 Nitrite Ql (U) Negative Negative [facility] No Panel InformationOrdered By: James Leach on 03-26-2023 Blood Gas Critical Value See comment [facility] Comment on above: Critical Value mclaughlin d on: 03/26/2023 at 18:37 Blood Gas Sample Site Venous [facility] FiO2 21 % [facility] Venous Blood Base Excess -18.2 mmol/L -3.0-3.0 [facility] Venous Blood Oxygen Content 6.8 mmol/L 6.6-9.7 [facility] Venous Blood Oxygen Saturation 69.1 % 73.0-76.0 [facility] Venous Blood Partial Pressure CO2 35.2 mm[Hg] 38.0-50.0 [facility] Venous Blood Partial Pressure O2 35.8 mm[Hg] 35.0-45.0 [facility] Venous Blood pH 7.10 7.32-7.43 [facility] No Panel InformationOrdered By: Darrel Lucero on 03-26-2023 Estimated GFR (CKD-EPI) > 60.0 mL/Min [facility] Creatinine Clearance (Chem 80.47 [facility] Nucleated erythrocytes [Pres ence] in Blood by Automated countOrdered By: Darrel Lucero on 03-26-2023 Nucleated RBC Auto Ql (Bld) 0.6 /100{WBC} 0-0.5 [facility] Platelet mean volume Auto (B ld) [Entitic vol]Ordered By: Darrel Lucero on 03-26-2023 Platelet mean volume (Bld) [Entitic vol] 9.2 fL 6.6-10.1 [facility] Platelet poor plasma interna tional normalized ratio (INR) by coagulation assay (relatOrdered By: Darrel Lucero on 03-26-2023 INR Coag (PPP) [Relative time] 0.9 {INR} [facility] Comment on above: INR Therapeutic Rang e A) Pre- and Peroperative OAT started two weeks before surgery. NOT HIP SURGERY: 1.5 - 2.5 HIP SURGERY: 2 - 3B) Primary and secondary prevention of venous THROMBOSIS: 2 - 3C) Active venous thrombosis, pulmonary embolismand prevention of recurrent venous thrombosis: 2 - 3D) Prevention of arterial thromboembolismincluding patients with mechanical heart valves: 3 - 4.5 Platelets Auto (Bld) [#/Vol] Ordered By: Darrel Lucero on 03-26-2023 Platelets (Bld) [#/Vol] 233 10*3/uL 150-450 [facility] Potassium [Moles/volume] in Serum or PlasmaOrdered By: Darrel Lucero on 03-26-2023 Potassium [Moles/Vol] 4.5 mmol/L 3.5-5.1 [facility] Protein Auto test strip (U) [Mass/Vol]Ordered By: James Leach on 03-26-2023 Protein (U) [Mass/Vol] 30 mg/dL Negative [facility] Protein [Mass/volume] in Ser um or PlasmaOrdered By: Darrel Lucero on 03-26-2023 Protein [Mass/Vol] 8.3 g/dL 6.4-8.9 [facility] RBC Auto (Bld) [#/Vol]Ordere d By: Darrel Lucero on 03-26-2023 RBC (Bld) [#/Vol] 6.28 10*6/uL 3.90-5.60 [facility] Serum or plasma albumin/glob ulin mass ratioOrdered By: Darrel Lucero on 03-26-2023 Albumin/Globulin [Mass ratio] 1.3 {ratio} [facility] Serum or plasma anion gap de terminationOrdered By: Darrel Lucero on 03-26-2023 Anion gap [Moles/Vol] 30.6 mmol/L 6.0-15.0 [facility] Serum or plasma non-glucuron idated bilirubin measurement (mass/volume)Ordered By: Darrel Lucero on 03-26-2023 Bilirubin.indirect [Mass/Vol] 0.3 mg/dL [facility] Sodium [Moles/volume] in Ser um or PlasmaOrdered By: Darrel Lucero on 03-26-2023 Sodium [Moles/Vol] 135 mmol/L 136-145 [facility] Specific gravity Auto test s trip (U) [Rel density]Ordered By: James Leach on 03-26-2023 Specific gravity (U) [Rel density] 1.020 1.001-1.03 0 [facility] Squamous epithelial cells de tection in urine sediment by light microscopyOrdered By: James Leach on 03-26-2023 Epithelial cells.squamous LM Ql (Urine sed) None seen [HPF] 0-2 [facility] Troponin I.cardiac [Mass/vol ume] in Serum or Plasma by Detection limit <= 0.01 ng/Ordered By: James Leach on 03-26-2023 Troponin I.cardiac DL <= 0.01 ng/mL [Mass/Vol] 8.1 pg/mL 0.0-20.0 [facility] Troponin I.cardiac [Mass/vol ume] in Serum or Plasma by Detection limit <= 0.01 ng/Ordered By: Darrel Lucero on 03-26-2023 Troponin I.cardiac DL <= 0.01 ng/mL [Mass/Vol] 6.9 pg/mL 0.0-20.0 [facility] Urea nitrogen [Mass/volume] in Serum or PlasmaOrdered By: Darrel Lucero on 03-26-2023 Urea nitrogen [Mass/Vol] 22 mg/dL 7-25 [facility] Urine bacteria detection by automated methodOrdered By: James Leach on 03-26-2023 Bacteria Auto Ql (U) None seen None Seen [facility] Urine clarity by refractomet ry automatedOrdered By: James Leach on 03-26-2023 Clarity Refractometry automated (U) Clear Clear [facility] Urine glucose measurement by automated test strip (mass/volume)Ordered By: James Leach on 03-26-2023 Glucose Auto test strip (U) [Mass/Vol] >=1000 mg/dL Normal [facility] Urine hemoglobin detection b y automated test stripOrdered By: James Leach on 03-26-2023 Hemoglobin Auto test strip Ql (U) Negative Negative [facility] Urine leukocyte esterase det ection by automated test stripOrdered By: James Leach on 03-26-2023 Leukocyte esterase Auto test strip Ql (U) Negative Negative [facility] Urobilinogen Auto test strip (U) [Mass/Vol]Ordered By: James Leach on 03-26-2023 Urobilinogen (U) [Mass/Vol] Normal mg/dL Normal [facility] WBC Auto (Bld) [#/Vol]Ordere d By: Darrel Lucero on 03-26-2023 WBC (Bld) [#/Vol] 9.0 10*3/uL 4.1-10.5 [facility] pH Auto test strip (U)Ordere d By: James Leach on 03-26-2023 pH (U) 5.5 [pH] 5.0-9.0 [facility] Activated partial thrombopla stin time (aPTT) in platelet poor plasma by coagulation aOrdered By: Ambrocio Lara on 03-21-2023 aPTT Coag (PPP) [Time] 27.0 s 25.1-36.5 [facility] Alanine aminotransferase [En zymatic activity/volume] in Serum or PlasmaOrdered By: Ambrocio Lara on 03-21-2023 ALT [Catalytic activity/Vol] 23 U/L 7-52 [facility] Albumin [Mass/volume] in Ser um or Plasma by Bromocresol green (BCG) dye binding methoOrdered By: Ambrocio Lara on 03-21-2023 Albumin BCG dye [Mass/Vol] 4.3 g/dL 3.5-5.7 [facility] Alkaline phosphatase [Enzyma tic activity/volume] in Serum or PlasmaOrdered By: Ambrocio Lara on 03-21-2023 ALP [Catalytic activity/Vol] 99 U/L 34-104 [facility] Aspartate aminotransferase [ Enzymatic activity/volume] in Serum or PlasmaOrdered By: Ambrocio Lara on 03-21-2023 AST [Catalytic activity/Vol] 18 U/L 13-39 [facility] Automated erythrocytes count in urine sediment (number/area)Ordered By: Ambrocio Lara on 03-21-2023 RBC Auto (Urine sed) [#/Area] None seen [HPF] 0-4 [facility] Automated leukocytes count i n urine sediment (number/area)Ordered By: Ambrocio Lara on 03-21-2023 WBC Auto (Urine sed) [#/Area] None seen [HPF] 0-4 [facility] Basophils Auto (Bld) [#/Vol] Ordered By: Ambrocio Lara on 03-21-2023 Basophils (Bld) [#/Vol] 0.0 10*3/uL 0.0-0.2 [facility] Basophils/100 WBC Auto (Bld) Ordered By: Ambrocio Lara on 03-21-2023 Basophils/100 WBC (Bld) 0.5 % . [facility] Bilirubin Test strip Ql (U)O rdered By: Ambrocio Lara on 03-21-2023 Bilirubin Ql (U) Negative Negative [facility] Bilirubin.direct [Mass/volum e] in Serum or PlasmaOrdered By: Ambrocio Lara on 03-21-2023 Bilirubin.direct [Mass/Vol] 0.10 mg/dL 0.03-0.18 [facility] Bilirubin.total [Mass/volume ] in Serum or PlasmaOrdered By: Ambrocio Lara on 03-21-2023 Bilirubin [Mass/Vol] 0.4 mg/dL 0.3-1.0 [facility] Calcium [Mass/volume] in Ser um or PlasmaOrdered By: Ambrocio Lara on 03-21-2023 Calcium [Mass/Vol] 8.9 mg/dL 8.6-10.3 [facility] Carbon dioxide, total [Moles /volume] in Serum or PlasmaOrdered By: Ambrocio Lara on 03-21-2023 CO2 [Moles/Vol] 17.4 mmol/L 21.0-31.0 [facility] Chloride [Moles/volume] in S lian or PlasmaOrdered By: Ambrocio Lara on 03-21-2023 Chloride [Moles/Vol] 98 mmol/L 98-107 [facility] Color Auto (U)Ordered By: Corona Lara on 03-21-2023 Color (U) Yellow Yellow [facility] Creatinine [Mass/volume] in Serum or PlasmaOrdered By: Ambrocio Lara on 03-21-2023 Creatinine [Mass/Vol] 0.89 mg/dL 0.70-1.30 [facility] Eosinophils Auto (Bld) [#/Vo l]Ordered By: Ambrocio Lara on 03-21-2023 Eosinophils (Bld) [#/Vol] 0.1 10*3/uL 0.0-0.45 [facility] Eosinophils/100 WBC Auto (Bl d)Ordered By: Ambrocio Lara on 03-21-2023 Eosinophils/100 WBC (Bld) 1.6 % . [facility] Erythrocyte distribution wid th Auto (RBC) [Ratio]Ordered By: Ambrocio Lara on 03-21-2023 Erythrocyte distribution width (RBC) [Ratio] 14.0 % 12.0-14.8 [facility] Fecal occult blood detection by immunochemistryOrdered By: James Leach on 03-21-2023 Hemoglobin.gastrointest inal Ql (Stl) [facility] Globulin Calc (S) [Mass/Vol] Ordered By: Ambrocio Lara on 03-21-2023 Globulin (S) [Mass/Vol] 3.1 g/dL [facility] Glucose [Mass/volume] in Ser um or PlasmaOrdered By: Ambrocio Lara on 03-21-2023 Glucose [Mass/Vol] 260 mg/dL 70-100 [facility] Comment on above: ADA recommended refe rence rangeRandom Glucose Reference Range is dependent on time and content of last meal. Glucose of more than 200 mg/dL in a nonstressed, ambulatory subject supports the diagnosis of Diabetes Mellitus. Hematocrit Auto (Bld) [Volum e fraction]Ordered By: Ambrocio Lara on 03-21-2023 Hematocrit (Bld) [Volume fraction] 48.8 % 38.8-50.0 [facility] Hemoglobin [Mass/volume] in BloodOrdered By: Ambrocio Lara on 03-21-2023 Hemoglobin (Bld) [Mass/Vol] 16.3 g/dL 13.0-17.0 [facility] IntraOperative Documentson 0 03-21-2023 IntraOperative Documents [id number]#1.00CD:12 7 Normal [facility] Ketones Auto test strip (U) [Mass/Vol]Ordered By: Ambrocio Lara on 03-21-2023 Ketones (U) [Mass/Vol] 3+ Negative Fi [facility] Laboratory - CoagulationOrde red By: Ambrocio Lara on 03-21-2023 PT Coag (PPP) [Time] 10.8 s 9.0-12.9 [facility] Laboratory - UrinalysisOrder ed By: Ambrocio Lara on 03-21-2023 Hyaline casts LM Ql (Urine sed) 0-8 [LPF] 0-8 [facility] Leukocytes [#/volume] correc darnell for nucleated erythrocytes in Blood by Automated counOrdered By: Ambrocio Lara on 03-21-2023 WBC corrected for nucl RBC Auto (Bld) [#/Vol] 7.1 10*3/uL 4.1-10.5 [facility] Lipase [Enzymatic activity/v olume] in Serum or PlasmaOrdered By: Ambrocio Lara on 03-21-2023 Lipase [Catalytic activity/Vol] 49.0 U/L 11.0-82.0 [facility] Lymphocytes Auto (Bld) [#/Vo l]Ordered By: Ambrocio Lara on 03-21-2023 Lymphocytes (Bld) [#/Vol] 1.0 10*3/uL 1.00-4.8 [facility] Lymphocytes/100 WBC Auto (Bl d)Ordered By: Ambrocio Lara on 03-21-2023 Lymphocytes/100 WBC (Bld) 13.6 % . [facility] MCH Auto (RBC) [Entitic mass ]Ordered By: Ambrocio Lara on 03-21-2023 MCH (RBC) [Entitic mass] 27.7 pg 27.5-35.2 [facility] MCHC Auto (RBC) [Mass/Vol]Or dered By: Ambrocio Lara on 03-21-2023 MCHC (RBC) [Mass/Vol] 33.5 g/dL 32.5-35.6 [facility] MCV Auto (RBC) [Entitic vol] Ordered By: Ambrocio Lara on 03-21-2023 MCV (RBC) [Entitic vol] 82.8 fL 83.5-101 [facility] Monocyte distribution width [Entitic volume] in Blood by AutomatedOrdered By: Ambrocio Lara on 03-21-2023 Monocyte distribution width Auto (Bld) [Entitic vol] 16.61 % 0.00-20.00 [facility] Monocytes Auto (Bld) [#/Vol] Ordered By: Ambrocio Lara on 03-21-2023 Monocytes (Bld) [#/Vol] 0.6 10*3/uL 0.0-0.8 [facility] Monocytes/100 WBC Auto (Bld) Ordered By: Ambrocio Lara on 03-21-2023 Monocytes/100 WBC (Bld) 8.2 % . [facility] Neutrophils Auto (Bld) [#/Vo l]Ordered By: Ambrocio Lara on 03-21-2023 Neutrophils (Bld) [#/Vol] 5.4 10*3/uL 1.8-7.7 [facility] Neutrophils/100 WBC Auto (Bl d)Ordered By: Ambrocio Lara on 03-21-2023 Neutrophils/100 WBC (Bld) 76.1 % . [facility] Nitrite Test strip Ql (U)Ord ered By: Ambrocio Lara on 03-21-2023 Nitrite Ql (U) Negative Negative [facility] No Panel InformationOrdered By: Ambrocio Lara on 03-21-2023 Estimated GFR (CKD-EPI) > 60.0 mL/Min [facility] Creatinine Clearance (Chem 116.53 [facility] Nucleated erythrocytes [Pres ence] in Blood by Automated countOrdered By: Ambrocio Lara on 03-21-2023 Nucleated RBC Auto Ql (Bld) 0.3 /100{WBC} 0-0.5 [facility] Platelet mean volume Auto (B ld) [Entitic vol]Ordered By: Ambrocio Lara on 03-21-2023 Platelet mean volume (Bld) [Entitic vol] 8.9 fL 6.6-10.1 [facility] Platelet poor plasma interna tional normalized ratio (INR) by coagulation assay (relatOrdered By: Ambrocio Lara on 03-21-2023 INR Coag (PPP) [Relative time] 0.9 {INR} [facility] Comment on above: INR Therapeutic Rang e A) Pre- and Peroperative OAT started two weeks before surgery. NOT HIP SURGERY: 1.5 - 2.5 HIP SURGERY: 2 - 3B) Primary and secondary prevention of venous THROMBOSIS: 2 - 3C) Active venous thrombosis, pulmonary embolismand prevention of recurrent venous thrombosis: 2 - 3D) Prevention of arterial thromboembolismincluding patients with mechanical heart valves: 3 - 4.5 Platelets Auto (Bld) [#/Vol] Ordered By: Ambrocio Lara on 03-21-2023 Platelets (Bld) [#/Vol] 193 10*3/uL 150-450 [facility] Postoperative Documentson Postoperative Documents [id number]#[id number]:12 7 Normal [facility] Potassium [Moles/volume] in Serum or PlasmaOrdered By: Ambrocio Lara on 03-21-2023 Potassium [Moles/Vol] 4.5 mmol/L 3.5-5.1 [facility] Protein Auto test strip (U) [Mass/Vol]Ordered By: Ambrocio Lara on 03-21-2023 Protein (U) [Mass/Vol] 30 mg/dL Negative [facility] Protein [Mass/volume] in Ser um or PlasmaOrdered By: Ambrocio Lara on 03-21-2023 Protein [Mass/Vol] 7.4 g/dL 6.4-8.9 [facility] RBC Auto (Bld) [#/Vol]Ordere d By: Ambrocio Lara on 03-21-2023 RBC (Bld) [#/Vol] 5.89 10*6/uL 3.90-5.60 [facility] Serum or plasma albumin/glob ulin mass ratioOrdered By: Ambrocio Lara on 03-21-2023 Albumin/Globulin [Mass ratio] 1.4 {ratio} [facility] Serum or plasma anion gap de terminationOrdered By: Ambrocio Lara on 03-21-2023 Anion gap [Moles/Vol] 21.1 mmol/L 6.0-15.0 [facility] Serum or plasma non-glucuron idated bilirubin measurement (mass/volume)Ordered By: Ambrocio Lara on 03-21-2023 Bilirubin.indirect [Mass/Vol] 0.3 mg/dL [facility] Sodium [Moles/volume] in Ser um or PlasmaOrdered By: Ambrocio Lara on 03-21-2023 Sodium [Moles/Vol] 132 mmol/L 136-145 [facility] Specific gravity Auto test s trip (U) [Rel density]Ordered By: Ambrocio Lara on 03-21-2023 Specific gravity (U) [Rel density] 1.023 1.001-1.03 0 [facility] Squamous epithelial cells de tection in urine sediment by light microscopyOrdered By: Ambrocio Lara on 03-21-2023 Epithelial cells.squamous LM Ql (Urine sed) None seen [HPF] 0-2 [facility] Urea nitrogen [Mass/volume] in Serum or PlasmaOrdered By: Ambrocio Lara on 03-21-2023 Urea nitrogen [Mass/Vol] 14 mg/dL 7-25 [facility] Urine bacteria detection by automated methodOrdered By: Ambrocio Lara on 03-21-2023 Bacteria Auto Ql (U) None seen None Seen [facility] Urine clarity by refractomet ry automatedOrdered By: Ambrocio Lara on 03-21-2023 Clarity Refractometry automated (U) Clear Clear [facility] Urine glucose measurement by automated test strip (mass/volume)Ordered By: Ambrocio Lara on 03-21-2023 Glucose Auto test strip (U) [Mass/Vol] >=1000 mg/dL Normal [facility] Urine hemoglobin detection b y automated test stripOrdered By: Ambrocio Lara on 03-21-2023 Hemoglobin Auto test strip Ql (U) Negative Negative [facility] Urine leukocyte esterase det ection by automated test stripOrdered By: Ambrocio Lara on 03-21-2023 Leukocyte esterase Auto test strip Ql (U) Negative Negative [facility] Urobilinogen Auto test strip (U) [Mass/Vol]Ordered By: Ambrocio Lara on 03-21-2023 Urobilinogen (U) [Mass/Vol] Normal mg/dL Normal [facility] WBC Auto (Bld) [#/Vol]Ordere d By: Ambrocio Lara on 03-21-2023 WBC (Bld) [#/Vol] 7.1 10*3/uL 4.1-10.5 [facility] pH Auto test strip (U)Ordere d By: Ambrocio Lara on 03-21-2023 pH (U) 5.0 [pH] 5.0-9.0 [facility] Consenton 03-19-2023 Consent [id number]#[id number]:127 Normal [facility] Discharge Instructionson Discharge Instructions [id number]#[id number]:127 Normal [facility] Main OR Intraoperative Recor don 03-18-2023 Main OR Intraoperative Record IntraOp Document Type FT Summary Primary Physician: Eun PIZARRO MD Finalized Date/Time: 03/18/23 12:38:58 Pt. Name: EDWINAANNEMARIEROQUEMANNIE/Sex: 1960 Male Med Rec #: [id number] Physician: Eun PIZARRO MD Financial #: [id number] Pt. Type: O Room/Bed: [facility] 01/23 Admit/Disch: 03/17/23 09:46:47 - 03/17/23 11:05:00 Institution: Case Times FT Entry 1 Patient Times In Room 03/17/23 10:15:00 Out Room 03/17/23 10:23:00 Procedure Times Start 03/17/23 10:18:00 Stop 03/17/23 10:21:00 Anesthesia Times Start 03/17/23 10:15:00 Stop 03/17/23 10:23:00 Last Modified By: Jihan Lopez RN 03/17/23 10:23:49 General Comments: 03/18/23 Chart opened to review and send charges LRoth CSFA Case Attendance FT Entry 1 Entry 2 Entry 3 [facility] MD, Eun Andrade Role Performed Crisis Worker - Primary Scrub - Primary Surgeon - Primary Time In 03/17/23 10:15:00 03/17/23 10:15:00 03/17/23 10:15:00 Time Out 03/17/23 10:23:00 03/17/23 10:23:00 03/17/23 10:23:00 Procedure EGD(.) EGD(.) EGD(.) Comments Last Modified By: Jihan Lopez RN, RN, Jihan Johnson RN 03/17/23 10:23:52 F 03/17/23 10:23:52 F 03/17/23 10:23:52 Entry 4 Case Attendee Beth LEO CRNA, N. Role Performed WRINGER MACHINE OPERATOR Time In 03/17/23 10:15:00 Time Out 03/17/23 10:23:00 Procedure EGD(.) Comments Dr. Lama supervising Last Modified By: Jihan Lopez RN 03/17/23 10:23:52 Perioperative Protocols FT Pre-Care Text: Implements protective measures prior to operative or invasive procedure, confirms identity before the operative or invasive procedure, verifies operative procedure, surgical site, and laterality Entry 1 Procedure(s) EGD(.) Patient Identity Birthday, ID Band Verified (select at Check, Patient least 2): Participation Consents / H and P Anesthesia Consent, Operative Site N/A Verified HandP, Surgery/Procedure Marking Verified Consent Surgical Site No Laterality Verified n/a Verified Procedure Verified Yes Correct Patient Yes Position Verified Availability Equipment, Medication Prep Dry n/a Verified (If Applicable) PreOp Antibiotic No Time Out Jihan Lopez RN Given Donaldo F, Reese AWS SOFTWARE DEVELOPMENT ENGINEER, ELIGIO Harrington MD, Beth Haq DNP, JACY, N. Time Out Complete 03/17/23 10:17:00 Outcomes Met? Yes Last Modified By: Jihan Lopez RN 03/17/23 10:17:09 Post-Care Text: The patient is free from signs and symptoms of injury caused by extraneous objects Allergy Information FT Pre-Care Text: Verifies allergies Entry 1 Allergies Reviewed? Yes Allergies Reviewed Self/Patient With Outcomes Met? Yes Last Modified By: Jihan Lopez RN 03/17/23 07:37:32 Post-Care Text: The patient received appropriate medication(s) safely administered during the perioperative period Surgical Procedures FT Entry 1 Procedure Description Procedure EGD Modifiers . Surgeon Description EGD with gastric biopsy, proximal esophageal biopsy, distal esophageal biopsy. Primary Procedure Yes Primary Surgeon Eun PIZARRO MD Start 03/17/23 10:18:00 Stop 03/17/23 10:21:00 Anesthesia Type General Surgical Service Gastroenterology Wound Class 2 - Clean-Contaminated Last Modified By: Jihan Lopez RN 03/17/23 10:21:15 General Case Data FT Pre-Care Text: Classifies surgical wound, implements aseptic technique, initiates traffic control Entry 1 Case Information OR ENDO 1 FT Case Level Level 2 Wound Class 2 - Clean-Contaminated Specialty Gastroenterology ASA Class 3 Preop Diagnosis Dysphagia Postop Same As Preop No Postop Diagnosis Gastric erosions, Outcomes Met? Yes esophagitis Last Modified By: Jihan Lopez RN 03/17/23 10:21:07 Post-Care Text: The patient is free from signs and symptoms of infection Skin Assessment (Pre Procedure) FT Pre-Care Text: Implements protective measures to prevent skin/ tissue injury due to thermal or mechanical sources Evaluates for signs and symptoms of physical injury to skin and tissue Entry 1 Skin Integrity Intact, [place], Warm, and Skin Abnormality No Dry Outcomes Met? Yes Last Modified By: Jihan Lopez RN 03/17/23 07:37:59 Post-Care Text: The patient is free from signs and symptoms of injury caused by extraneous objects Patient Positioning FT Pre-Care Text: Identifies physical alterations that require additional precautions for procedure-specific positioning, verifies presence of prosthetics or corrective devices, positions the patient, evaluates the patient for signs and symptoms of injury as a result of positioning Entry 1 Procedure EGD(.) Body Position Lateral, right side up Feet Uncrossed? Yes Left Arm Position Resting at Side Right Arm Position Resting at Side Left Leg Position Extended Right Leg Position Extended Positioning Device Safety Str (more content not included)... Normal [facility] Consent for Treatmenton 02-23 Consent for Treatment [id number]:127 Normal [facility] Discharge Instructionson Discharge Instructions MANNIE MICHEL :1960 Visit Date:03/17/2023 Inpatient Discharge Instructions Your Care Team Admitting Physician - Eun PIZARRO MD Referring Physician - Eun PIZARRO MD Reason for Your Visit DYSPHAGIA Your Diagnosis Esophagitis Tests Performed Pathology Tissue Exam -- Results Pending -- Please visit your patient portal for your results or contact your primary care physician. This Is Your Medications List acetaminophen (Tylenol Extra Strength 500 mg oral tablet) aspirin (aspirin 325 mg Oral EC Tab) atorvastatin (Lipitor 80 mg Tab) canagliflozin (Invokana 100 mg oral tablet) cholecalciferol (Vitamin D3 5000 intl units oral capsule) citalopram (citalopram 40 mg Tab) clopidogrel (Plavix 75 mg Tab) dicyclomine (dicyclomine 20 mg Tab) docusate (Colace 100 mg Cap) dulaglutide (Trulicity Pen) fluticasone (fluticasone CFC free 44 mcg/inh Inh Aer w/adapter) furosemide (Lasix 20 mg Tab) gabapentin (gabapentin 400 mg Cap) insulin aspart (NovoLog FlexPen) insulin glargine (Lantus Solostar Pen) insulin glargine (Lantus Solostar Pen) lisinopril (lisinopril 5 mg Tab) meclizine (meclizine 25 mg Tab) melatonin (melatonin 3 mg Tab) metformin (metformin 500 mg oral tablet) methocarbamol (methocarbamol 750 mg Tab) metoprolol (metoprolol 100 mg ER Tab) nitroglycerin (nitroglycerin 0.1 mg/hr transdermal film, extended release) omeprazole (omeprazole 40 mg Cap-DR) pantoprazole (pantoprazole 40 mg Oral EC Tab) primidone (primidone 50 mg Tab) prochlorperazine (Compazine 10 mg oral tablet) quetiapine (quetiapine 50 mg oral tablet) ropinirole (ropinirole 0.5 mg Tab) semaglutide (Ozempic) sucralfate (Carafate 1 gram Tab) venlafaxine (venlafaxine 37.5 mg Cap-ER) Procedure History Esophagogastroduodenoscopy (12/24/2021), Carpal tunnel release (09/09/2019), Cardiac catheterization, Carpal tunnel release, Insertion of coronary artery stent. Discharge Vitals Temperature (Temporal Artery) 37.1 ?C Heart Rate (Monitored) 80 Respiratory Rate 13 Blood Pressure 95/66 Height 177 cm Weight 127.6 kg BMI 40.73 What to do next Instructions From Your Doctor Event Name Event Result Discharge Instructions Freetext Resume Plavix todayContinue with omeprazole 40 mg p.o. dailyAdd Pepcid 40 mg p.o. nightly Discharge Activity Resume normal activities in 24 hours Discharge Restrictions No driving for 24 hrs, Do not operate machinery or tools, Do not make important decisions for 24 hours Discharge Diet(s) Regular Pharmacy Information [facility]- Discharge Instructions Discharge Instructions New Follow Up Appointments after Discharge Follow Up with Eun PIZARRO When: Within 1 to 2 weeks Comments: Call for any problems. Where: [address] [place] [address]. [address] [place] [address] Business (1) Medications What How Much When Why Instructions Next Dose Changed omeprazole (omeprazole 40 mg Cap-DR) 1 Capsules By Mouth Every day Chronic GERD Duration: 90 Days Unchanged acetaminophen (Tylenol Extra Strength 500 mg oral tablet) 1 Tablets By Mouth Every 6 hours as needed for as needed for pain Unchanged aspirin (aspirin 325 mg Oral EC Tab) 1 Tablets By Mouth Every day Unchanged atorvastatin (Lipitor 80 mg Tab) 1 Tablets By Mouth Every day Unchanged canagliflozin (Invokana 100 mg oral tablet) TAKE 1 TABLET BY MOUTH DAILY BEFORE THE FIRST MEAL OF THE DAY Unchanged cholecalciferol (Vitamin D3 5000 intl units oral capsule) 1 Capsules By Mouth Every day with food Unchanged citalopram (citalopram 40 mg Tab) 1 Tablets By Mouth Every day Unchanged clopidogrel (Plavix 75 mg Tab) 1 Tablets By Mouth Every day Unchanged dicyclomine (dicyclomine 20 mg Tab) 1 Tablets By Mouth 4 times a day Unchanged docusate (Colace 100 mg Cap) 1 Capsules By Mouth 2 times a day as needed for for constipation Unchanged dulaglutide (Trulicity Pen) Unchanged fluticasone (fluticasone CFC free 44 mcg/ inh Inh Aer w/ adapter) 2 Puffs Inhalation 2 times a day Unchanged furosemide (Lasix 20 mg Tab) 1 Tablets By Mouth Every day Unchanged gabapentin (gabapentin 400 mg Cap) 3 Capsules By Mouth 3 times a day Unchanged insulin aspart (NovoLog FlexPen) See instructions 3 units per 10 carbs tid before a meal subq Unchanged insulin glargine (Lantus Solostar Pen) 64 Units Subcutaneous Every day am Unchanged insulin glargine (Lantus Solostar Pen) 62 Units Subcutaneous Once a day (at bedtime) Unchanged lisinopril (lisinopril 5 mg Tab) 1 Tablets By Mouth Every day Unchanged meclizine (meclizine 25 mg Tab) 2 Tablets By Mouth 3 times a day Unchanged melatonin (melatonin 3 mg Tab) 1 Tablets By Mouth Once a day (at bedtime) as needed for for insomnia Unchanged metformin (metformin 500 mg oral tablet) 2 Tablets By Mouth 2 times a day Unchanged methocarbamol (methocarbamol 750 mg Tab) By Mouth 3 times a day Unchanged metoprol (more content not included)... Normal [facility] Comment on above: Result Comment: Elec tronically Signed By: Antwon MARTÍNEZ, Stephanie\.br\Date and Time Signed: 03/17/23 10:42 EDT Endoscopic Procedure Report - Otheron 03-17-2023 Endoscopic Procedure Report - Other Patient: MANNIE MICHEL Age: 62 years Sex: Male : 1960 Associated Diagnoses: None Author: Eun PIZARRO MD Pre-Procedure Procedure Date 03/17/2023 10:22:00 . Procedure Type: Esophagogastroduodenoscopy . Procedure provider Performed by Eun Pizarro MD. Current history and physical Documented on chart. Informed Consent After discussing the rationale, risks and benefits, and alternatives to this procedure, the patient provided signed consent for the procedure. Pre-procedure diagnosis: Diagnostic. Medications Anticoagulant/antiplatelet Plavix . Last dose was on 03/11/2023. ASA Classification: Class III. . Monitoring: See anesthesia record. . Procedure The procedure was performed in the hospital. See anesthesia record for sedation given during procedure. The patient was positioned starting in the left lateral decubitus position and with safety measures. Endoscope type used was an adult-size, introduced orally, advanced to the 2nd portion of the duodenum. No difficulty was encountered during the procedure. Views were good. Gastric biopsies were taken of the fundus and of the antrum. The patient tolerated the procedure well. Findings 1. Esophagitis, LA grade B, proximal and distal esophageal biopsies obtained 2. Moderate gastric erosions, random biopsies obtained to rule out H. pylori 3. Normal duodenum Images Procedure images: [id number] . Post-Procedure Complications: none. Estimated blood loss: none. Specimens: sent to pathology. Devices/ implants: none left in place. Impression and Plan 1. Esophagitis, LA grade B, proximal and distal esophageal biopsies obtained 2. Moderate gastric erosions, random biopsies obtained to rule out H. pylori Recommendations: 1. Awaiting pathology report. 2. GI clinic follow-up in 2 weeks 3. Continue with omeprazole 40 mg p.o. daily 4. Add Pepcid 40 mg p.o. nightly 5. Repeat EGD in 2 to 3 months for possible dilation Normal [facility] Comment on above: Result Comment: Elec tronically Signed By: Eun PIZAROR MD\.br\Date and Time Signed: 03/17/23 10:23 EDT Other Comment: Yael marcus Attachment - attachment storage system not supported [id number] Can be viewed in source systemMissing Attachment - attachment storage system not supported [id number] Can be viewed in source systemMissing Attachment - attachment storage system not supported [id number] Can be viewed in source system Main OR PACU I Recordon 02-23 Main OR PACU I Record PACU Phase I Docum ent Type FT Summary Primary Physician: Eun PIZARRO MD Finalized Date/Time: 03/17/23 11:45:45 Pt. Name: MANNIE MICHEL/Sex: 1960 Male Med Rec #: [id number] Physician: Eun PIZARRO MD Financial #: [id number] Pt. Type: O Room/Bed: Endo 01/23 Admit/Disch: 03/17/23 09:46:47 - Institution: Case Times PACU I FT Pre-Care Text: Identifies barriers to communication and implements measures to provide psychological support Develops individualized plan of care, and ensures continuity of care Maintains patient's dignity and privacy, and maintains patient confidentiality Identifies and reports philosophical, cultural, and spiritual beliefs and values Identifies individual values and wishes concerning care Implements aseptic technique, and administers prescribed antibiotic therapy and immunizing agents as ordered Evaluates postoperative tissue perfusion Implements thermoregulation measures, and monitors body temperature Evaluates postoperative respiratory status Evaluates postoperative cardiac status Evaluates postoperative neurological status Assesses pain control, collaborated in initiating patient-controlled analgesia and implements alternative methods of pain control Verifies allergies, administers prescribed medications and solutions, evaluates response to medications Entry 1 In PACU I 03/17/23 10:24:00 Discharge from PACU 03/17/23 11:05:00 I Outcomes Met? Yes Last Modified By: Stephanie Kapoor RN 03/17/23 11:45:18 Post-Care Text: The patient demonstrates knowledge of the expected response to the operative or invasive procedure The patient's care is consistent with the individualized perioperative plan of care The patient's right to privacy is maintained The patient's value system, lifestyle, ethnicity, and culture are considered, respected, and incorporated into the perioperative plan of care The patient participates in decisions affecting his or her perioperative plan of care The patient is free from signs and symptoms of infection The patient has wound/tissue perfusion consistent with or improved from baseline levels established preoperatively The patient is at or returning to normothermia at the conclusion of the immediate postoperative period The patient's respiratory function is consistent with or improved from baseline levels established preoperatively The patient's cardiovascular status is consistent with or improved from baseline levels established preoperatively The patient's cardiovascular status is consistent with or improved from baseline levels established preoperatively The patient demonstrates and/or reports adequate pain control throughout the perioperative period The patient received appropriate medication(s), safely administered during the perioperative period Acuity Level PACU I FT Entry 1 Start Time 03/17/23 10:24:00 Stop Time 03/17/23 11:05:00 Acuity Level Acuity Level I Last Modified By: Stephanie Kapoor RN 03/17/23 11:45:32 Finalized By: Stephanie Kapoor RN Document Signatures Signed By: Stephanie Kapoor RN 03/17/23 11:45 Normal [facility] Main OR Preoperative Recordo n 03-17-2023 Main OR Preoperative Record Holding Area Document Type FT Summary Primary Physician: Eun PIZARRO MD Finalized Date/Time: 03/17/23 10:00:16 Pt. Name: MANNIE MICHEL /Sex: 1960 Male Med Rec #: [id number] Physician: Eun PIZARRO MD Financial #: [id number] Pt. Type: O Room/Bed: Endo 01/23 Admit/Disch: 03/17/23 09:46:47 - Institution: Case Times Holding FT Pre-Care Text: Verifies consent for planned procedure, identifies individual values and wishes concerning care, includes family members in perioperative teaching Secures patient's records' belongings, and valuables, maintains patient's dignity and privacy, and maintains patient confidentiality Entry 1 In Holding 03/17/23 09:55:00 Outcomes Met? Yes Last Modified By: Isidoro Okeefe RN 03/17/23 09:58:27 Post-Care Text: The patient participates in decisions affecting his or her perioperative plan of care The patient's right to privacy is maintained Surgery Checklist FT Entry 1 Patient Birthday, ID Band Procedure History and Physical, Identification: Check, Patient Verification: Surgical Consent, With Participation Patient NPO after Midnight: Yes Personal Items: Glasses Personal Items glasses, shoes Limitations: pt needs assistance Comment: with wheelchair for long disance Complaints of Pain: Yes Pain Comment: chronic pain Operative Site n/a Marked By: n/a Marking: Location: n/a Availability Equipment Verified: Does Patient Smoke No Patient states Yes Comment - Adult [employer] postop adult Supervision supervision available Case Cancelled in No Holding Area see comments below for reason Last Modified By: Isidoro Okeefe RN 03/17/23 10:00:15 Finalized By: Isidoro Okeefe RN Document Signatures Signed By: Isidoro Okeefe RN 03/17/23 10:00 Normal [facility] Monitor Recordon 03-17-2023 Monitor Record [id number]:127 Normal [facility] Monitor Record [id number]:127 [facility] Progress Note-Physicianon Progress Note-Physician Patient: MANNIE DEVLIN Age: 62 years Sex: Male : 1960 Associated Diagnoses: None Author: Sung Lama MD Postoperative Information Postoperative disposition: Postoperative disposition: To PACU. Optimetrix number: Optimetrix number [id number]. Anesthetic utilized: General. Physical Examination Vital Signs 03/17/2023 10:50 EDT Heart Rate Monitored 82 bpm Respiratory Rate Monitored 18 br/min Systolic Blood Pressure 129 mmHg Diastolic Blood Pressure 85 mmHg Blood Pressure Location Left arm Mean Arterial Pressure, Cuff 100 mmHg SpO2 97 % 03/17/2023 10:40 EDT Heart Rate Monitored 82 bpm Respiratory Rate Monitored 15 br/min Systolic Blood Pressure 119 mmHg Diastolic Blood Pressure 78 mmHg Blood Pressure Location Left arm Mean Arterial Pressure, Cuff 92 mmHg SpO2 94 % 03/17/2023 10:35 EDT Heart Rate Monitored 81 bpm Respiratory Rate Monitored 18 br/min Systolic Blood Pressure 108 mmHg Diastolic Blood Pressure 71 mmHg Blood Pressure Location Left arm Mean Arterial Pressure, Cuff 83 mmHg SpO2 92 % 03/17/2023 10:30 EDT Heart Rate Monitored 80 bpm Respiratory Rate Monitored 13 br/min Systolic Blood Pressure 95 mmHg Diastolic Blood Pressure 66 mmHg Blood Pressure Location Left arm Mean Arterial Pressure, Cuff 76 mmHg SpO2 91 % 03/17/2023 10:24 EDT Temperature Temporal Artery 37.1 DegC Heart Rate Monitored 79 bpm Respiratory Rate Monitored 13 br/min Systolic Blood Pressure 101 mmHg Diastolic Blood Pressure 70 mmHg Blood Pressure Location Left arm Mean Arterial Pressure, Cuff 80 mmHg SpO2 94 % Pain Assessment: Pain Assessment 03/17/2023 10:50 EDT Numeric Pain Scale 0 = No pain . General: Awake, Alert, Appropriate. Respiratory: Adequate air exchange, Equal bilateral chest wall expansion. Cardiovascular: Stable. Neurological: At Baseline. Assessment Anesthetic outcome No anesthetic complications noted. Review / Management Condition: Stable. Plan Transfer/Discharge: Transfer/Discharge Discharge when meets criteria ( To home ). [facility] Comment on above: Result Comment: Elec tronically Signed By: Daina KOLB, Sung Esparza\.br\Date and Time Signed: 03/17/23 12:12 EDT Progress Note-Physician Patient: NETHERMANNIE GOLD Age: 62 years Sex: Male : 1960 Associated Diagnoses: None Author: Sung Lama MD Preoperative Information Anesthesia Preop Info: Time patient last ate or drank 03/16/2023 20:00:00. Anesthesia history: Patient history: None. Family history+: None. Informed consent: Signed by patient. Including risks, benefits, and alternatives related to the: Anesthetic plan. Re-evaluation prior to induction: Sung Lama MD. Initial evaluation reviewed: No significant change. Review of Systems Eye: Negative. Ear/Nose/Mouth/Throat: Negative. Respiratory: Negative. Cardiovascular: Negative. Gastrointestinal: Negative. Genitourinary: Negative. Hematology/Lymphatics: Negative. Endocrine: Negative. Musculoskeletal: Negative. Neurologic: Negative. Health Status Allergies: Allergies (6) Active Reaction Motrin Stomach upset codeine Disorientation ibuprofen Stomach upset bee pollen Hives Latex Hives Tape Hives Current medications: Home Medications (32) Active aspirin 325 mg Oral EC Tab 325 mg = 1 tab(s), Oral, Daily Carafate 1 gram Tab , Oral, QIDACHS citalopram 40 mg Tab 40 mg = 1 tab(s), Oral, Daily Colace 100 mg Cap 100 mg = 1 cap(s), PRN, Oral, BID Compazine 10 mg oral tablet 5 mg = 0.5 tab(s), PRN, Oral, TID dicyclomine 20 mg Tab 20 mg = 1 tab(s), Oral, QID fluticasone CFC free 44 mcg/inh Inh Aer w/adapter 2 puff(s), Inhalation, BID gabapentin 400 mg Cap 1,200 mg = 3 cap(s), Oral, TID Invokana 100 mg oral tablet Lantus Solostar Pen 64 unit(s), SubCutaneous, Daily Lantus Solostar Pen 62 unit(s), SubCutaneous, Once a day (at bedtime) Lasix 20 mg Tab 20 mg = 1 tab(s), Oral, Daily Lipitor 80 mg Tab 80 mg = 1 tab(s), Oral, Daily lisinopril 5 mg Tab 5 mg = 1 tab(s), Oral, Daily meclizine 25 mg Tab 50 mg = 2 tab(s), Oral, TID melatonin 3 mg Tab 3 mg = 1 tab(s), PRN, Oral, Once a day (at bedtime) metformin 500 mg oral tablet 1,000 mg = 2 tab(s), Oral, BID methocarbamol 750 mg Tab , Oral, TID metoprolol 100 mg ER Tab 100 mg = 1 tab(s), Oral, BID nitroglycerin 0.1 mg/hr transdermal film, extended release , PRN, TransDermal, Daily NovoLog FlexPen See Instructions omeprazole 40 mg Cap-DR 40 mg = 1 cap(s), Oral, Daily Ozempic 1 mg, SubCutaneous, qWeek pantoprazole 40 mg Oral EC Tab 40 mg = 1 tab(s), Oral, Daily Plavix 75 mg Tab 75 mg = 1 tab(s), Oral, Daily primidone 50 mg Tab , Oral, TID quetiapine 50 mg oral tablet , Oral, BID ropinirole 0.5 mg Tab , Oral, TID Trulicity Pen Tylenol Extra Strength 500 mg oral tablet 500 mg = 1 tab(s), PRN, Oral, q6hr venlafaxine 37.5 mg Cap-ER , Oral, Daily Vitamin D3 5000 intl units oral capsule 5,000 International_Unit = 1 cap(s), Oral, Daily , Medications (1) Active Scheduled: (0) Continuous: (1) Sodium Chloride 0.9% 1,000 mL 1,000 mL, IV, 20 mL/hr PRN: (0) Problem list: All Problems Asthma / SNOMED CT 457358385 / Confirmed Multiple gastric ulcers / SNOMED CT 436926101 / Confirmed Seizure / SNOMED CT 751277776 / Confirmed Acute non Q wave NM (myocardial infarction), initial episode of care / SNOMED CT 298704457 / Confirmed CAD- with stents / SNOMED CT 28994214 / Confirmed Depression / SNOMED CT 01209308 / Confirmed Chronic GERD / SNOMED CT 441586463 / Confirmed Fatty liver / SNOMED CT 536470258 / Confirmed Gastric bezoar / SNOMED CT 360837121 / Confirmed Foreign body in stomach, sequela / SNOMED CT 807245745 / Confirmed Screen for colon cancer / SNOMED CT 347243358 / Confirmed Diabetic gastroparesis / SNOMED CT 3898613567 / Confirmed Dysphagia / SNOMED CT 66423891 / Confirmed Diabetes / SNOMED CT 506244982 / Confirmed HTN (hypertension) / SNOMED CT 4957154125 / Confirmed Hypercholesteremia / SNOMED CT 99947367 / Confirmed Neuropathy in diabetes / SNOMED CT 484910026 / Confirmed Chronic depression / SNOMED CT 520048219 / Confirmed Vertigo / SNOMED CT 1999640540 / Confirmed Carpal tunnel syndrome of left wrist / SNOMED CT 07193043 / Confirmed Edema / SNOMED CT 702369967 / Confirmed, Active Problems (21) Acute non Q wave NM (myocardial infarction), initial episode of care Asthma CAD- with stents Carpal tunnel syndrome of left wrist Chronic depression Chronic GERD Depression Diabetes Diabetic gastroparesis Dysphagia Edema Fatty liver Foreign body in stomach, sequela Gastric bezoar HTN (hypertension) Hypercholesteremia Multiple gastric ulcers Neuropathy in diabetes Screen for colon cancer Seizure Vertigo Histories Social History Social & Psychosocial Habits Alcohol 08/19/2019 Risk Assessment: Denies Alcohol Use Substance Abuse 08/19/2019 Risk Assessment: Denies Substance Abuse Tobacco 08/19/2019 Risk Assessment: Denies Tobacco Use 12/12/2022 Tobacco Use: Never (less than 100 in l Smokeless tobacco use: Never . Physical Examination Vital Signs (more content not included)... [facility] Comment on above: Result Comment: Elec tronically Signed By: Daina KOLB, Sung Esparza\.br\Date and Time Signed: 03/17/23 10:11 EDT Consent for Treatmenton 01-24 Consent for Treatment [id number]:127 [facility] Main OR Preoperative Recordo n 02-17-2023 Main OR Preoperative Record Holding Area Document Type FT Summary Primary Physician: Eun PIZARRO MD Finalized Date/Time: 02/17/23 13:53:38 Pt. Name: MANNIE MICHEL/Sex: 1960 Male Med Rec #: [id number] Physician: Eun PIZARRO MD Financial #: [id number] Pt. Type: O Room/Bed: Endo 10/23 Admit/Disch: 02/17/23 13:02:50 - Institution: Case Times Holding FT Pre-Care Text: Verifies consent for planned procedure, identifies individual values and wishes concerning care, includes family members in perioperative teaching Secures patient's records' belongings, and valuables, maintains patient's dignity and privacy, and maintains patient confidentiality Entry 1 In Holding 02/17/23 13:10:00 Outcomes Met? Yes Last Modified By: Isidoro Okeefe RN 02/17/23 13:51:07 Post-Care Text: The patient participates in decisions affecting his or her perioperative plan of care The patient's right to privacy is maintained Surgery Checklist FT Entry 1 Patient Birthday, ID Band Procedure History and Physical, Identification: Check, Patient Verification: Surgical Consent, With Participation Patient NPO after Midnight: Yes Operative Site n/a Marking: Marked By: n/a Location: n/a Availability Equipment Verified: Case Cancelled in Yes Case Cancelled Case cancelled preop Holding Area see Comment due to no hold time on comments below for blood thinner reason Last Modified By: Isidoro Okeefe RN 02/17/23 13:53:36 General Comments: Dr. Pizarro discussed with patient at bedside about rescheduling procedure due to no hold time on blood thinner. patient was rescheduled for next fridayFebruary 24 and educated to hold plavix starting this fridayfebruary 19 Finalized By: Isidoro Okeefe RN Document Signatures Signed By: Isidoro Okeefe RN 02/17/23 13:53 Normal [facility] Office Visit (Cardiology)on 02-14-2023 Follow-up visit Diagnoses/Problems Assessed Diabetes mellitus (250.00) (E11.9) Coronary artery disease involving [place] coronary artery of [place] heart without angina pectoris (414.01) (I25.10) Hyperlipidemia (272.4) (E78.5) Essential hypertension (401.9) (I10) Class 2 obesity with body mass index (BMI) of 38.0 to 38.9 in adult (278.00,V85.38) (E66.9,Z68.38) Former smoker (V15.82) (Z87.891) quit in 2005, smoked 2 PPD Orders Class 2 obesity with body mass index (BMI) of 38.0 to 38.9 in adult Healthy Weight Tips; Status:Complete - Retrospective Authorization; Done: 14Feb2023 Some eating tips that can help you lose weight.; Status:Complete - Retrospective Authorization; Done: 14Feb2023 Coronary artery disease involving [place] coronary artery of [place] heart without angina pectoris, Essential hypertension Renew: Lisinopril 2.5 MG Oral Tablet; TAKE 1 TABLET DAILY Renew: Metoprolol Tartrate 50 MG Oral Tablet; TAKE 1 TABLET EVERY 12 HOURS SocHx: Former smoker Tobacco Use Screening; Status:Complete; Done: 14Feb2023 Patient Instructions Please bring all medicines, vitamins, and herbal supplements with you when you come to the office. Prescriptions will not be filled unless you are compliant with your follow up appointments or have a follow up appointment scheduled as per instruction of your physician. Refills should be requested at the time of your visit. Follow up in [9 ] months Chief Complaint MANNIE MICHEL is being seen for 7 MONTH FOLLOW UP. History of Present Illness Returns in follow-up of problems as noted. He is done well. He has no anginal symptomatology such as that that preceded his original diagnosis. Management of his diabetes and hypertension have improved because he has been actively dieting and losing weight. It appears he is lost about 24 pounds since he was last seen and he was congratulated on these efforts and encouraged to continue. Otherwise it appears he is doing well and his lipids blood pressure and diabetes are well managed. Because of this we recommend no change and follow-up next year. Active Problems Problems Chest pain (786.50) (R07.9) Coronary artery disease involving [place] coronary artery of [place] heart without angina pectoris (414.01) (I25.10) Diabetes mellitus (250.00) (E11.9) Essential hypertension (401.9) (I10) Former smoker (V15.82) (Z87.891) quit in 2005, smoked 2 PPD Hyperlipidemia (272.4) (E78.5) Intracranial injury (854.00) (S06.9XAA) Surgical History Problems History of Colonoscopy [id number] Dr Sohan Walters History of Foot surgery right History of Tonsillectomy Past Medical History Problems History of angina pectoris (V12.59) (Z86.79) Current Meds Medication NameInstruction Atorvastatin Calcium 80 MG Oral Tablettake 1 tablet by mouth at bedtime Citalopram Hydrobromide 40 MG Oral Tablettake 1 tablet by mouth once daily Clopidogrel Bisulfate 75 MG Oral Tablettake 1 tablet by mouth once daily Famotidine 40 MG Oral Tablettake 1 tablet by mouth at bedtime Fluticasone Propionate 50 MCG/ACT Nasal Suspensioninstill 2 sprays into each nostril once daily Furosemide 20 MG Oral Tablettake 1 tablet by mouth once daily Gabapentin 400 MG Oral Capsuletake 3 capsules by mouth three times a day HumaLOG 100 UNIT/ML Injection Solutionas directed Invokana 100 MG Oral TabletTAKE 1 TABLET BY MOUTH ONCE DAILY 30 MINS BEFORE BREAKFAST Invokana 300 MG Oral TabletTAKE 1 TABLET BY MOUTH ONCE DAILY 30 MINS BEFORE BREAKFAST Lantus SoloStar 100 UNIT/ML Subcutaneous Solution Pen-injectorINJECT 64 UNITS SUBCUTANEOUSLY EVERY MORNING AND 60 UNITS EVERY EVENING DIRECTED Lidocaine 3.5 % External Patch Lisinopril 2.5 MG Oral TabletTAKE 1 TABLET DAILY. Meclizine HCl - 25 MG Oral Tablettake 1 tablet by mouth three times a day if needed Melatonin ER 3 MG Oral Tablet Extended ReleaseTAKE DIRECTED. metFORMIN HCl - 500 MG Oral Tablettake 2 tablets by mouth twice a day Methocarbamol 750 MG Oral TabletTAKE 1 TABLET 3 TIMES DAILY. Metoprolol Tartrate 50 MG Oral TabletTAKE 1 TABLET EVERY 12 HOURS. Naproxen 500 MG Oral Tablettake 1 tablet by mouth twice a day if needed Nitroglycerin 0.4 MG Sublingual Tablet Sublingualplace 1 tablet under the tongue if needed every 5 minutes for chest pain for 3 doses Omeprazole 20 MG Oral Capsule Delayed ReleaseTAKE 2 CAPSULES DAILY. Ondansetron HCl - 4 MG Oral Tablettake as needed Pantoprazole Sodium 40 MG Oral Tablet Delayed Releasetake 1 tablet by mouth once daily Primidone 50 MG Oral Tablettake 2 tablets by mouth three times a day Prochlorperazine Maleate 5 MG Oral TabletTAKE 1 TABLET 3 TIMES DAILY. QUEtiapine Fumarate 50 MG Oral Tablettake 1 tablet by mouth at bedtime RA Vitamin D-3 125 MCG (5000 UT) Oral Capsuletake 1 capsule by mouth once daily rOPINIRole HCl - 0.5 MG Oral Tablettake 1 tablet by mouth 1 TO 3 HOURS BEFORE BEDTIME Trulicity 3 MG/0.5ML Subcutaneous Solution Pen-injectoras directed Patient brought in an (more content not included)... Normal [place] Tobacco Screening.on 023 Adult depression screening assessment No -[facility]-Sandu haim 250 DO Work Phone: Tobacco use status [facility] b) No M P-[facility] [employer] TechnologyIzaiah whitmore 250 DO Work Phone: Consent for Procedure/Surger yon 12-16-2022 Consent for Procedure/Surgery [id number] Normal [facility] Gastroenterology Office/Clin ic Noteon 12-16-2022 Gastroenterology Office/Clinic Note Chief Complaint 3 month f/u HPI Staff This is a 62 year old male who presents today for a 3 month follow up. History of Present Illness Mannie Michel is a 62-year-old white male who presents today for a follow-up. He was seen last by my nurse practitioner in 07/2022. He has a history of large gastric bezoar. He started on 3 to 4 cans of Glucola with a low-residual diet and he was given a course of erythromycin. A repeat EGD 2 months later in 02/2022 revealed that the gastric bezoar had resolved completely, but he continued to have evidence of gastroparesis with weak gastric peristalsis. He also has a history of fatty liver. A liver biopsy in 2019 showed mild steatosis without steatohepatitis. He has a history of chronic GERD. Patient is doing well from a GI point of view. He states that if he eats rice or spaghetti, it feels like it gets stuck and when he coughs it up, it is phlegm. He denies chronic heartburn. He has diabetes that is controlled. He does not remember his hemoglobin A1c. He is following up with his primary care physician to do blood tests to make sure that his liver enzymes are okay. His last colonoscopy was [address] Sohan Walters, and no polyps were found. He was told to repeat it in 10 years. His weight has decreased from 288 pounds to 281 pounds. Review of Systems PHQ Score Initial Depression Screen Score: 0 Constitutional: no fever, no chills, no sweats, no weakness Skin: no Jaundice, no rash, no lesions, no petechiae ENMT: no ear pain, no sore throat, no congestion, no hoarseness Respiratory: no shortness of breath, no cough, no orthopnea, no wheezing Cardiovascular: no chest pain, no palpitations, no edema Gastrointestinal: no nausea, no vomiting, no diarrhea, no constipation, no GI bleeding, no bloating, no heartburn. Positive for dysphagia. Genitourinary: no dysuria, no hematuria, no discharge, no pain Musculoskeletal: no back pain, no trauma Neurologic: no numbness, no sleeping problems Additional ROS info: Except as noted in the above Review of Systems and in the History of Present Illness all other systems have been reviewed and are negative or noncontributory. Physical Exam Vitals & Measurements HR: 83(Peripheral) RR: 16 BP: 112/75 SpO2: 96% HT: 70 in HT: 177 cm WT: 127.6 kg WT: 280.72 lb BMI: 40.73 Constitutional: Appearance: well developed Skin: Inspection: no rashes, ulcers, icterus, or telangiectasias. Eyes: Conjunctivae/lids: normal conjunctivae and lids. ENMT: Hearing: within normal limits. Lips/Teeth/Gums: normal oral mucosa Neck: Neck: normal motion, central trachea Respiratory: Percussion: thorax normoresonant. Auscultation: normal breath sounds; no rubs, wheezes, rale or rhonchi. Cardiovascular: Auscultation: normal rhythm, S1 and S2; no rubs, murmurs or gallop. Peripheral: no edema Gastrointestinal/Abdomen: Abdomen: normal consistency and bowel sounds; no tenderness or masses. Liver/Spleen: normal size and consistency, not palpable. Rectal: deferred Musculoskeletal: Gait/station: normal gait Assessment/Plan 1. Dysphagia (R13.10: Dysphagia, unspecified) The patient reports dysphagia mainly to solids. Differential includes esophagitis, esophageal ulcer, and esophageal stricture. We will proceed with an EGD with possible dilation. 2. Fatty liver (K76.0: Fatty (change of) liver, not elsewhere classified) The patient has a history of fatty liver. He had a liver biopsy in 2021 that did not show any significant hepatic steatohepatitis or fibrosis. I will repeat his liver function test now and I will continue to encourage the patient to lose weight at least 20 percent to control his diabetes. 3. Chronic GERD (K21.9: Gastro-esophageal reflux disease without esophagitis) This is controlled with PPI as needed. 4. 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 We will reassess his gastric bezoar during upcoming EGD. The patient will continue to follow a low-residue diet. 5. Screen for colon cancer (Z12.11: Encounter for screening for malignant neoplasm of colon) He had a colonoscopy done by Dr. Sohan Walters 5 years ago. I do not have the records, but according to the patient, it was normal, and he was told to repeat it in 10 years. Gastroparesis (K31.84: Gastroparesis) The patient was advised to continue with a low-residual diet. We will proceed with EGD to assess. ATTESTATION: Documentation services were performed after patient or guardian consented to allow Emily Silvia Alberts to record this visit. PHONG supply chain specialist and provider reviewed before signing. PHONG: Tami Adair. Follow-up No qualifying data available Problem List/Past Medical History Ongoing Acute non Q wave NM (myocardial infarction), initial episode of care Asthma CAD- with stents Chronic GERD Depression Diabetic gastroparesis Dysphagia Fa (more content not included)... Normal [facility] Comment on above: Result Comment: Elec tronically Signed By: Tami Hall\.br\Date and Time Signed: 12/12/22 15:08 EDT\.br\Electronically Co-Signed By: Eun PIZARRO MD\.br\Date and Time Co-Signed: 12/16/22 10:47 EDT Ambulatory Visit Summaryon 0 12-12-2022 Ambulatory Visit Summary MANNIE MICHEL :1960 Visit Date:12/12/2022 Ambulatory Visit Instructions Your Diagnosis Dysphagia Fatty liver Chronic GERD Diabetic gastroparesis Screen for colon cancer Gastroparesis Your Care Team Attending Physician - ELIGIO KOLB, Eun Primary Care Physician - Kajal KOLB, Janki Andrade This Is Your Medications List Contact prescribing physician if questions or concerns acetaminophen (Tylenol Extra Strength 500 mg oral tablet) aspirin (aspirin 325 mg Oral EC Tab) atorvastatin (Lipitor 80 mg Tab) canagliflozin (Invokana 100 mg oral tablet) cholecalciferol (Vitamin D3 5000 intl units oral capsule) citalopram (citalopram 40 mg Tab) clopidogrel (Plavix 75 mg Tab) dicyclomine (dicyclomine 20 mg Tab) docusate (Colace 100 mg Cap) dulaglutide (Trulicity Pen) fluticasone (fluticasone CFC free 44 mcg/inh Inh Aer w/adapter) furosemide (Lasix 20 mg Tab) gabapentin (gabapentin 400 mg Cap) insulin aspart (NovoLog FlexPen) insulin glargine (Lantus Solostar Pen) insulin glargine (Lantus Solostar Pen) lisinopril (lisinopril 5 mg Tab) meclizine (meclizine 25 mg Tab) melatonin (melatonin 3 mg Tab) metformin (metformin 500 mg oral tablet) methocarbamol (methocarbamol 750 mg Tab) metoprolol (metoprolol 100 mg ER Tab) nitroglycerin (nitroglycerin 0.1 mg/hr transdermal film, extended release) omeprazole (omeprazole 40 mg Cap-DR) omeprazole (omeprazole 40 mg Cap-DR) pantoprazole (pantoprazole 40 mg Oral EC Tab) primidone (primidone 50 mg Tab) prochlorperazine (Compazine 10 mg oral tablet) quetiapine (quetiapine 50 mg oral tablet) ropinirole (ropinirole 0.5 mg Tab) semaglutide (Ozempic) sucralfate (Carafate 1 gram Tab) venlafaxine (venlafaxine 37.5 mg Cap-ER) Procedures Performed Esophagogastroduodenoscopy (12/24/2021), Carpal tunnel release (09/09/2019), Cardiac catheterization, Carpal tunnel release, Insertion of coronary artery stent. Discharge Vitals Heart Rate (Peripheral) 83 Respiratory Rate 16 Blood Pressure 112/75 Height 177 cm Height 70 in Weight 127.6 kg Weight 280.72 lb BMI 40.73 What to do next Scheduled Follow-Up Appointments Friday 1:45 PM EDT Where: [facility] You Need to Complete the Following CBC w/ Indices, Blood, Routine collect, 12/12/22, Order for future visit, Lab Collect, Dysphagia Normal [facility] Activated partial thrombopla stin time (aPTT) in platelet poor plasma by coagulation aOrdered By: Wiley Haynes on 11-20-2022 aPTT Coag (PPP) [Time] 31.1 s 25.1-36.5 [facility] Alanine aminotransferase [En zymatic activity/volume] in Serum or PlasmaOrdered By: Wiley Haynes on 11-20-2022 ALT [Catalytic activity/Vol] 35 U/L 7-52 [facility] Albumin [Mass/volume] in Ser um or Plasma by Bromocresol green (BCG) dye binding methoOrdered By: Wiley Haynes on 11-20-2022 Albumin BCG dye [Mass/Vol] 4.3 g/dL 3.5-5.7 [facility] Alkaline phosphatase [Enzyma tic activity/volume] in Serum or PlasmaOrdered By: Wiley Haynes on 11-20-2022 ALP [Catalytic activity/Vol] 108 U/L 34-104 [facility] Aspartate aminotransferase [ Enzymatic activity/volume] in Serum or PlasmaOrdered By: Wiley Haynes on 11-20-2022 AST [Catalytic activity/Vol] 23 U/L 13-39 [facility] Basophils Auto (Bld) [#/Vol] Ordered By: Wiley Haynes on 11-20-2022 Basophils (Bld) [#/Vol] 0.1 10*3/uL 0.0-0.2 [facility] Basophils/100 WBC Auto (Bld) Ordered By: Wiley Haynes on 11-20-2022 Basophils/100 WBC (Bld) 0.8 % . [facility] Bilirubin Test strip Ql (U)O rdered By: Wiley Haynes on 11-20-2022 Bilirubin Ql (U) Negative Negative [facility] Bilirubin.total [Mass/volume ] in Serum or PlasmaOrdered By: Wiley Haynes 11-20-2022 Bilirubin [Mass/Vol] 0.5 mg/dL 0.3-1.0 [facility] Calcium [Mass/volume] in Ser um or PlasmaOrdered By: Wiley Haynes on 11-20-2022 Calcium [Mass/Vol] 9.0 mg/dL 8.6-10.3 [facility] Carbon dioxide, total [Moles /volume] in Serum or PlasmaOrdered By: Wiley Haynes on 11-20-2022 CO2 [Moles/Vol] 27.0 mmol/L 21.0-31.0 [facility] Chloride [Moles/volume] in S lian or PlasmaOrdered By: Wiley Haynes on 11-20-2022 Chloride [Moles/Vol] 94 mmol/L 98-107 [facility] Color Auto (U)Ordered By: Demetrio Haynes on 11-20-2022 Color (U) Yellow Yellow [facility] Creatinine [Mass/volume] in Serum or PlasmaOrdered By: Wiley Haynes on 11-20-2022 Creatinine [Mass/Vol] 0.98 mg/dL 0.70-1.30 [facility] Eosinophils Auto (Bld) [#/Vo l]Ordered By: Wiley Haynes on 11-20-2022 Eosinophils (Bld) [#/Vol] 0.2 10*3/uL 0.0-0.45 [facility] Eosinophils/100 WBC Auto (Bl d)Ordered By: Wiley Haynes on 11-20-2022 Eosinophils/100 WBC (Bld) 2.2 % . [facility] Erythrocyte distribution wid th Auto (RBC) [Ratio]Ordered By: Wiley Haynes on 11-20-2022 Erythrocyte distribution width (RBC) [Ratio] 15.0 % 12.0-14.8 [facility] Globulin Calc (S) [Mass/Vol] Ordered By: Wiley Haynes on 11-20-2022 Globulin (S) [Mass/Vol] 3.0 g/dL [facility] Glucose [Mass/volume] in Ser um or PlasmaOrdered By: Wiley Haynes on 11-20-2022 Glucose [Mass/Vol] 405 mg/dL 70-100 [facility] Comment on above: ADA recommended refe rence rangeRandom Glucose Reference Range is dependent on time and content of last meal. Glucose of more than 200 mg/dL in a nonstressed, ambulatory subject supports the diagnosis of Diabetes Mellitus. Hematocrit Auto (Bld) [Volum e fraction]Ordered By: Wiley Haynes on 11-20-2022 Hematocrit (Bld) [Volume fraction] 46.4 % 38.8-50.0 [facility] Hemoglobin [Mass/volume] in BloodOrdered By: Wiley Haynes on 11-20-2022 Hemoglobin (Bld) [Mass/Vol] 15.5 g/dL 13.0-17.0 [facility] Ketones Auto test strip (U) [Mass/Vol]Ordered By: Wiley Haynes on 11-20-2022 Ketones (U) [Mass/Vol] Negative Negative Fi relaCounts include 234 beds at the [facility] - CoagulationOrde red By: Wiley Haynes on 11-20-2022 PT Coag (PPP) [Time] 10.5 s 9.0-12.9 [facility] Leukocytes [#/volume] correc darnell for nucleated erythrocytes in Blood by Automated counOrdered By: Wiley Haynes on 11-20-2022 WBC corrected for nucl RBC Auto (Bld) [#/Vol] 7.5 10*3/uL 4.1-10.5 [facility] Lymphocytes Auto (Bld) [#/Vo l]Ordered By: Wiley Haynes on 11-20-2022 Lymphocytes (Bld) [#/Vol] 1.3 10*3/uL 1.00-4.8 [facility] Lymphocytes/100 WBC Auto (Bl d)Ordered By: Wiley Haynes on 11-20-2022 Lymphocytes/100 WBC (Bld) 16.7 % . [facility] MCH Auto (RBC) [Entitic mass ]Ordered By: Wiley Haynes on 11-20-2022 MCH (RBC) [Entitic mass] 26.3 pg 27.5-35.2 [facility] MCHC Auto (RBC) [Mass/Vol]Or dered By: Wiley Haynes on 11-20-2022 MCHC (RBC) [Mass/Vol] 33.3 g/dL 32.5-35.6 [facility] MCV Auto (RBC) [Entitic vol] Ordered By: Wiley Haynes on 11-20-2022 MCV (RBC) [Entitic vol] 78.9 fL 83.5-101 [facility] Monocyte distribution width [Entitic volume] in Blood by AutomatedOrdered By: Wiley Haynes on 11-20-2022 Monocyte distribution width Auto (Bld) [Entitic vol] 17.11 % 0.00-20.00 [facility] Monocytes Auto (Bld) [#/Vol] Ordered By: Wiley Haynes on 11-20-2022 Monocytes (Bld) [#/Vol] 0.6 10*3/uL 0.0-0.8 [facility] Monocytes/100 WBC Auto (Bld) Ordered By: Wiley Haynes on 11-20-2022 Monocytes/100 WBC (Bld) 7.5 % . [facility] Neutrophils Auto (Bld) [#/Vo l]Ordered By: Wiley Haynes on 11-20-2022 Neutrophils (Bld) [#/Vol] 5.5 10*3/uL 1.8-7.7 [facility] Neutrophils/100 WBC Auto (Bl d)Ordered By: Wiley Haynes on 11-20-2022 Neutrophils/100 WBC (Bld) 72.8 % . [facility] Nitrite Test strip Ql (U)Ord ered By: Wiley Haynes on 11-20-2022 Nitrite Ql (U) Negative Negative [facility] No Panel InformationOrdered By: Wiley Haynes on 11-20-2022 Estimated GFR (CKD-EPI) > 60.0 mL/Min [facility] Creatinine Clearance (Chem 115.51 [facility] Nucleated erythrocytes [Pres ence] in Blood by Automated countOrdered By: Wiley Haynes on 11-20-2022 Nucleated RBC Auto Ql (Bld) 0.1 /100{WBC} 0-0.5 [facility] Platelet mean volume Auto (B ld) [Entitic vol]Ordered By: Wiley Haynes on 11-20-2022 Platelet mean volume (Bld) [Entitic vol] 9.3 fL 6.6-10.1 [facility] Platelet poor plasma interna tional normalized ratio (INR) by coagulation assay (relatOrdered By: Wiley Haynes on 11-20-2022 INR Coag (PPP) [Relative time] 0.9 {INR} [facility] Comment on above: INR Therapeutic Rang e A) Pre- and Peroperative OAT started two weeks before surgery. NOT HIP SURGERY: 1.5 - 2.5 HIP SURGERY: 2 - 3B) Primary and secondary prevention of venous THROMBOSIS: 2 - 3C) Active venous thrombosis, pulmonary embolismand prevention of recurrent venous thrombosis: 2 - 3D) Prevention of arterial thromboembolismincluding patients with mechanical heart valves: 3 - 4.5 Platelets Auto (Bld) [#/Vol] Ordered By: Wiley Haynes on 11-20-2022 Platelets (Bld) [#/Vol] 177 10*3/uL 150-450 [facility] Potassium [Moles/volume] in Serum or PlasmaOrdered By: Wiley Haynes on 11-20-2022 Potassium [Moles/Vol] 4.5 mmol/L 3.5-5.1 [facility] Protein Auto test strip (U) [Mass/Vol]Ordered By: Wiley Haynes on 11-20-2022 Protein (U) [Mass/Vol] Negative Negative [facility] Protein [Mass/volume] in Ser um or PlasmaOrdered By: Wiley Haynes on 11-20-2022 Protein [Mass/Vol] 7.3 g/dL 6.4-8.9 [facility] RBC Auto (Bld) [#/Vol]Ordere d By: Wiley Haynes on 11-20-2022 RBC (Bld) [#/Vol] 5.88 10*6/uL 3.90-5.60 [facility] Serum or plasma albumin/glob ulin mass ratioOrdered By: Wiley Haynes on 11-20-2022 Albumin/Globulin [Mass ratio] 1.4 {ratio} [facility] Serum or plasma anion gap de terminationOrdered By: Wiley Haynes on 11-20-2022 Anion gap [Moles/Vol] 13.5 mmol/L 6.0-15.0 [facility] Sodium [Moles/volume] in Ser um or PlasmaOrdered By: Wiley Haynes on 11-20-2022 Sodium [Moles/Vol] 130 mmol/L 136-145 [facility] Specific gravity Auto test s trip (U) [Rel density]Ordered By: Wiley Haynes on 11-20-2022 Specific gravity (U) [Rel density] 1.026 1.001-1.03 0 [facility] Thyrotropin [Units/volume] i n Serum or PlasmaOrdered By: Wiley Haynes on 11-20-2022 TSH Qn 1.55 m[IU]/L 0.45-5.33 [facility] Thyroxine (T4) [Mass/volume] in Serum or PlasmaOrdered By: Wiley Haynes on 11-20-2022 T4 [Mass/Vol] 16.30 ug/dL 5.39-11.82 [facility] Urea nitrogen [Mass/volume] in Serum or PlasmaOrdered By: Wiley Haynes on 11-20-2022 Urea nitrogen [Mass/Vol] 24 mg/dL 7-25 [facility] Urine clarity by refractomet ry automatedOrdered By: Wiley Haynes on 11-20-2022 Clarity Refractometry automated (U) Clear Clear [facility] Urine glucose measurement by automated test strip (mass/volume)Ordered By: Wiley Haynes on 11-20-2022 Glucose Auto test strip (U) [Mass/Vol] >=1000 mg/dL Normal [facility] Urine hemoglobin detection b y automated test stripOrdered By: Wiley Haynes on 11-20-2022 Hemoglobin Auto test strip Ql (U) Negative Negative [facility] Urine leukocyte esterase det ection by automated test stripOrdered By: Wiley Haynes on 11-20-2022 Leukocyte esterase Auto test strip Ql (U) Negative Negative [facility] Urobilinogen Auto test strip (U) [Mass/Vol]Ordered By: Wiley Haynes on 11-20-2022 Urobilinogen (U) [Mass/Vol] Normal mg/dL Normal [facility] WBC Auto (Bld) [#/Vol]Ordere d By: Wiley Haynes on 11-20-2022 WBC (Bld) [#/Vol] 7.5 10*3/uL 4.1-10.5 [facility] pH Auto test strip (U)Ordere d By: Wiley Haynes on 11-20-2022 pH (U) 5.5 [pH] 5.0-9.0 [facility] Office Visit (Cardiology)on 07-24-2022 Follow-up visit Diagnoses/Problems Assessed Coronary artery disease involving [place] coronary artery of [place] heart without angina pectoris (414.01) (I25.10) Essential hypertension (401.9) (I10) Diabetes mellitus (250.00) (E11.9) Hyperlipidemia (272.4) (E78.5) Intracranial injury (854.00) (S06.9XAA) Morbid obesity with BMI of 40.0-44.9, adult (278.01,V85.41) (E66.01,Z68.41) Former smoker (V15.82) (Z87.891) quit in 2005, smoked 2 PPD Orders Coronary artery disease involving [place] coronary artery of [place] heart without angina pectoris Renew: Clopidogrel Bisulfate 75 MG Oral Tablet; take 1 tablet by mouth once daily Hyperlipidemia Renew: Atorvastatin Calcium 80 MG Oral Tablet; take 1 tablet by mouth at bedtime Morbid obesity with BMI of 40.0-44.9, adult Healthy Weight Tips; Status:Complete - Retrospective Authorization; Done: [id number] Some eating tips that can help you lose weight.; Status:Complete - Retrospective Authorization; Done: [id number] SocHx: Former smoker Tobacco Use Screening; Status:Complete; Done: [id number] Patient Instructions Please bring all medicines, vitamins, and herbal supplements with you when you come to the office. Prescriptions will not be filled unless you are compliant with your follow up appointments or have a follow up appointment scheduled as per instruction of your physician. Refills should be requested at the time of your visit. Follow up in January 2023 Chief Complaint MANNIE MICHEL is being seen for a 6 month follow-up of. History of Present Illness Patient returns in follow-up of problems as noted. He continues to live in an extended care facility ever since his original fall with intracranial injury and traumatic brain injury. Cognitive decline is noted. I cannot elicit from him, though, any symptoms of coronary disease. Control and management of risk factors including lipids and hypertension as well as diabetes is reviewed and his management appears to be adequate and appropriate. He was congratulated on his continued tobacco abstinence but we did advocate the merits of diet exercise and weight loss. Surgical History Problems History of Colonoscopy [id number] Dr Sohan Walters History of Foot surgery right History of Tonsillectomy Past Medical History Problems History of angina pectoris (V12.59) (Z86.79) Current Meds Medication NameInstruction Atorvastatin Calcium 80 MG Oral Tablettake 1 tablet by mouth at bedtime Citalopram Hydrobromide 40 MG Oral Tablettake 1 tablet by mouth once daily Clopidogrel Bisulfate 75 MG Oral Tablettake 1 tablet by mouth once daily Famotidine 40 MG Oral Tablettake 1 tablet by mouth at bedtime Fluticasone Propionate 50 MCG/ACT Nasal Suspensioninstill 2 sprays into each nostril once daily Furosemide 20 MG Oral Tablettake 1 tablet by mouth once daily Gabapentin 400 MG Oral Capsuletake 3 capsules by mouth three times a day HumaLOG 100 UNIT/ML Injection Solutionas directed Invokana 100 MG Oral TabletTAKE 1 TABLET BY MOUTH ONCE DAILY 30 MINS BEFORE BREAKFAST Lantus SoloStar 100 UNIT/ML Subcutaneous Solution Pen-injectorINJECT 64 UNITS SUBCUTANEOUSLY EVERY MORNING AND 60 UNITS EVERY EVENING DIRECTED Lidocaine 3.5 % External Patch Lisinopril 2.5 MG Oral TabletTAKE 1 TABLET DAILY. Meclizine HCl - 25 MG Oral Tablettake 1 tablet by mouth three times a day if needed Melatonin ER 3 MG Oral Tablet Extended ReleaseTAKE DIRECTED. metFORMIN HCl - 500 MG Oral Tablettake 2 tablets by mouth twice a day Methocarbamol 750 MG Oral TabletTAKE 1 TABLET 3 TIMES DAILY. Metoprolol Tartrate 50 MG Oral TabletTAKE 1 TABLET EVERY 12 HOURS. Naproxen 500 MG Oral Tablettake 1 tablet by mouth twice a day if needed Nitroglycerin 0.4 MG Sublingual Tablet Sublingualplace 1 tablet under the tongue if needed every 5 minutes for chest pain for 3 doses Omeprazole 20 MG Oral Capsule Delayed ReleaseTAKE 2 CAPSULES DAILY. Pantoprazole Sodium 40 MG Oral Tablet Delayed Releasetake 1 tablet by mouth once daily Primidone 50 MG Oral Tablettake 2 tablets by mouth three times a day Prochlorperazine Maleate 5 MG Oral TabletTAKE 1 TABLET 3 TIMES DAILY. QUEtiapine Fumarate 50 MG Oral Tablettake 1 tablet by mouth at bedtime RA Vitamin D-3 125 MCG (5000 UT) Oral Capsuletake 1 capsule by mouth once daily rOPINIRole HCl - 0.5 MG Oral Tablettake 1 tablet by mouth 1 TO 3 HOURS BEFORE BEDTIME Trulicity 3 MG/0.5ML Subcutaneous Solution Pen-injectoras directed Allergies Medication Codeine Derivatives Adverse Reaction; Hallucinations;; Recorded By: Vivien Bennett; 09/01/2021 9:00:09 PM [employer] Gloves Recorded By: Rusty Jonas; 07/24/2022 3:33:29 PM Social History Problems Caffeine use (V49.89) (Z78.9) 2 cups of coffee daily, 1/2 gallon of tea daily Former smoker (V15.82) (Z87.891) quit in 2005, smoked 2 PPD No alcohol use No illicit drug use Review of Systems Constitutional: not feeling tired. Eyes: no eyesight problems. ENT: no hearing (more content not included)... Normal [employer] Tobacco Screening.on 022 Tobacco use status [facility]PHS b) No [facility] [employer] Angelu haim 250 DO Work Phone: Glucose Glucometer (BldC) [M ass/Vol]Ordered By: Ramón Mcgarry on 06-25-2022 Glucose [Mass/Vol] 156 mg/dL [facility] Comment on above: Random Glucose Refer ence Range is dependent on time and content of last meal. Glucose of more than 200 mg/dL in a nonstressed, ambulatory subject supports the diagnosis of Diabetes Mellitus. No Panel InformationOrdered By: Ramón Mcgarry on 06-25-2022 Bedside Glucose Comment Glu2: cleaned meter [facility] Albumin [Mass/volume] in Ser um or PlasmaOrdered By: Carolina Nuñez on 06-24-2022 Albumin [Mass/Vol] 3.5 g/dL 3.2-5.5 [facility] Basophils Auto (Bld) [#/Vol] Ordered By: Carolina Nuñez on 06-24-2022 Basophils (Bld) [#/Vol] 0.0 10*3/uL 0.0-0.2 [facility] Basophils/100 WBC Auto (Bld) Ordered By: Carolina Nuñez on 06-24-2022 Basophils/100 WBC (Bld) 0.6 % . [facility] Creatinine and Glomerular fi ltration rate.predicted panel (S/P/Bld)Ordered By: Carolina Nuñez on 06-24-2022 Creatinine [Mass/Vol] 1.24 mg/dL 0.64-1.27 [facility] Eosinophils Auto (Bld) [#/Vo l]Ordered By: Carolina Nuñez on 06-24-2022 Eosinophils (Bld) [#/Vol] 0.3 10*3/uL 0.0-0.45 [facility] Eosinophils/100 WBC Auto (Bl d)Ordered By: Carolina Nuñez on 06-24-2022 Eosinophils/100 WBC (Bld) 5.8 % . [facility] Erythrocyte distribution wid th Auto (RBC) [Ratio]Ordered By: Carolina Nuñez on 06-24-2022 Erythrocyte distribution width (RBC) [Ratio] 14.4 % 12.0-14.8 [facility] Estimated glomerular filtrat ion rate (GFR) non- AmericanOrdered By: Carolina Nuñez on 06-24-2022 GFR/1.73 sq M.predicted among non-blacks MDRD (S/P/Bld) [Vol rate/Area] 60 mL/Min [facility] Globulin Calc (S) [Mass/Vol] Ordered By: Carolina Nuñez on 06-24-2022 Globulin (S) [Mass/Vol] 3.6 g/dL [facility] Hematocrit Auto (Bld) [Volum e fraction]Ordered By: Carolina Nuñez on 06-24-2022 Hematocrit (Bld) [Volume fraction] 44.6 % 38.8-50.0 [facility] Hemoglobin [Mass/volume] in BloodOrdered By: Carolina Nuñez on 06-24-2022 Hemoglobin (Bld) [Mass/Vol] 15.1 g/dL 13.0-17.0 [facility] Laboratory - Hematology and Cell countsOrdered By: Carolina Nuñez on 06-24-2022 Nucleated RBC/100 WBC (Bld) [Ratio] 0.1 % 0-0.5 [facility] Leukocytes [#/volume] in Blo od by Automated countOrdered By: Carolina Nuñez on 06-24-2022 WBC (Bld) [#/Vol] 5.1 10*3/uL 4.5-11.0 [facility] Lymphocytes Auto (Bld) [#/Vo l]Ordered By: Carolina Nuñez on 06-24-2022 Lymphocytes (Bld) [#/Vol] 1.0 10*3/uL 1.00-4.8 [facility] Lymphocytes/100 WBC Auto (Bl d)Ordered By: Carolina Nuñez on 06-24-2022 Lymphocytes/100 WBC (Bld) 18.9 % . [facility] MCH Auto (RBC) [Entitic mass ]Ordered By: Carolina Nuñez on 06-24-2022 MCH (RBC) [Entitic mass] 27.5 pg 27.5-35.2 [facility] MCHC Auto (RBC) [Mass/Vol]Or dered By: Carolina Nuñez on 06-24-2022 MCHC (RBC) [Mass/Vol] 33.8 g/dL 32.5-35.6 [facility] MCV Auto (RBC) [Entitic vol] Ordered By: Carolina Nuñez on 06-24-2022 MCV (RBC) [Entitic vol] 81.5 fL 83.5-101 [facility] Monocytes Auto (Bld) [#/Vol] Ordered By: Carolina Nuñez on 06-24-2022 Monocytes (Bld) [#/Vol] 0.8 10*3/uL 0.0-0.8 [facility] Monocytes/100 WBC Auto (Bld) Ordered By: Carolina Nuñez on 06-24-2022 Monocytes/100 WBC (Bld) 15.0 % . [facility] Neutrophils Auto (Bld) [#/Vo l]Ordered By: Carolina Nuñez on 06-24-2022 Neutrophils (Bld) [#/Vol] 3.0 10*3/uL 1.8-7.7 [facility] Neutrophils/100 WBC Auto (Bl d)Ordered By: Carolina Nuñez on 06-24-2022 Neutrophils/100 WBC (Bld) 59.7 % . [facility] No Panel InformationOrdered By: Carolina Nuñez on 06-24-2022 Estimated GFR () > 60 mL/Min [facility] Comment on above: GFR estimated refere nce range: According to KDOQI guidelines, <60 ml/min/1.73m2 is sufficient to diagnose a patient with chronic kidney disease. Pharmacy Creatinine Clearance (Chem 93.18 [facility] Platelet mean volume Auto (B ld) [Entitic vol]Ordered By: Carolina Nuñez on 06-24-2022 Platelet mean volume (Bld) [Entitic vol] 9.8 fL 6.6-10.1 [facility] Platelets Auto (Bld) [#/Vol] Ordered By: Carolina Nuñez on 06-24-2022 Platelets (Bld) [#/Vol] 210 10*3/uL 150-450 [facility] Protein [Mass/volume] in Ser um or PlasmaOrdered By: Carolina Nuñez on 06-24-2022 Protein [Mass/Vol] 7.1 g/dL 6.1-7.9 [facility] RBC Auto (Bld) [#/Vol]Ordere d By: Carolina Nuñez on 06-24-2022 RBC (Bld) [#/Vol] 5.48 10*6/uL 3.90-5.60 [facility] Serum or plasma alanine helm otransferase measurement without P-5'-P (enzymatic activiOrdered By: Carolina Nuñez on 06-24-2022 ALT No additional P-5'-P [Catalytic activity/Vol] 38 U/L [facility] Serum or plasma albumin/glob ulin mass ratioOrdered By: Carolina Nuñez on 06-24-2022 Albumin/Globulin [Mass ratio] 1.0 {ratio} [facility] Serum or plasma alkaline claribel sphatase measurement (enzymatic activity/volume)Ordered By: Carolina Nuñez on 06-24-2022 ALP [Catalytic activity/Vol] 106 U/L [facility] Serum or plasma anion gap de terminationOrdered By: Carolina Nuñez on 06-24-2022 Anion gap [Moles/Vol] 15.1 mmol/L 6.0-15.0 [facility] Serum or plasma aspartate am inotransferase measurement (enzymatic activity/volume)Ordered By: Carolina Nuñez on 06-24-2022 AST [Catalytic activity/Vol] 42 U/L [facility] Serum or plasma calcium marc urement (mass/volume)Ordered By: Carolina Nuñez on 06-24-2022 Calcium [Mass/Vol] 8.9 mg/dL 8.2-10.2 [facility] Serum or plasma chloride portillo surement (moles/volume)Ordered By: Carolina Nuñez on 06-24-2022 Chloride [Moles/Vol] 92 mmol/L 95-114 [facility] Serum or plasma glucose marc urement (mass/volume)Ordered By: Carolina Nuñez on 06-24-2022 Glucose [Mass/Vol] 158 mg/dL 70-100 [facility] Comment on above: ADA recommended refe rence rangeRandom Glucose Reference Range is dependent on time and content of last meal. Glucose of more than 200 mg/dL in a nonstressed, ambulatory subject supports the diagnosis of Diabetes Mellitus. Serum or plasma potassium me asurement (moles/volume)Ordered By: Carolina Nuñez on 06-24-2022 Potassium [Moles/Vol] 3.8 mmol/L 3.5-5.1 [facility] Serum or plasma sodium measu rement (moles/volume)Ordered By: Carolina Nuñez on 06-24-2022 Sodium [Moles/Vol] 131 mmol/L 136-146 [facility] Serum or plasma total biliru bin measurement (mass/volume)Ordered By: Carolina Nuñez on 06-24-2022 Bilirubin [Mass/Vol] 0.7 mg/dL 0.3-1.2 [facility] Serum or plasma total carbon dioxide measurement (moles/volume)Ordered By: Carolina Nuñez on 06-24-2022 CO2 [Moles/Vol] 27.7 mmol/L 22.0-30.0 [facility] Serum or plasma urea nitroge n measurement (mass/volume)Ordered By: Carolina Nuñez on 06-24-2022 Urea nitrogen [Mass/Vol] 29 mg/dL 9- [facility] No Panel InformationOrdered By: Dharmesh Linda on 06-22-2022 Bedside Glucose #[address]/rn [facility] Activated partial thrombopla stin time (aPTT) in platelet poor plasma by coagulation aOrdered By: Gt Galindo on 06-21-2022 aPTT Coag (PPP) [Time] 34.2 s 25.1-36.5 [facility] Albumin [Mass/volume] in Ser um or PlasmaOrdered By: Gt Galindo on 06-21-2022 Albumin [Mass/Vol] 3.9 g/dL 3.2-5.5 [facility] Basophils Auto (Bld) [#/Vol] Ordered By: Gt Galindo on 06-21-2022 Basophils (Bld) [#/Vol] 0.0 10*3/uL 0.0-0.2 [facility] Basophils/100 WBC Auto (Bld) Ordered By: Gt Galindo on 06-21-2022 Basophils/100 WBC (Bld) 0.5 % . [facility] COVID-19 Positive/NegativeOr dered By: Gt Galindo on 06-21-2022 SARS-CoV-2 (COVID-19) N gene RAMIREZ+probe Ql (Resp) Positive Negative [facility] Comment on above: Positive results amanda l only be called to Providers for the following groups of patients: Pre-Surgical Testing, Emergency Room, and Inpatients.Results calledat 0047 on 06/22/22 Testing for SARS-CoV-2 by RT-PCRThis test was developed and its performance characteristics determined by [employer] and validated at the [facility]. This test has not been FDA cleared or approved. This test has been authorized by FDA under an Emergency Use Authorization (EUA). This test has been validated in accordance with the FDA's Guidance Document (Policy for Diagnostics Testing in Laboratories Certified to Perform High Complexity Testing under CLIA prior to Emergency Use Authorization for Coronavirus Disease-2019 during the Public Health Emergency) issued on November 25, 2019. This test is only authorized for the duration of time the declaration that circumstances exist justifying the authorization of the emergency use of in vitro diagnostic tests for detection of SARS-CoV-2 virus and/or diagnosis of COVID-19 infection under section 564(b)(1) of the Act, 21 U.S.C. 360bbb-3(b)(1), unless the authorization is terminated or revoked sooner. COVID-19 SOFIAOrdered By: Beth Galindo on 06-21-2022 SARS-CoV+SARS-CoV-2 (COVID-19) Ag IA.rapid Ql (Resp) Positive Negative [facility] Comment on above: This is a duplicate Lelo SARS Antigen (GENE) result to be used for statistical tracking purpose only. Creatinine and Glomerular fi ltration rate.predicted panel (S/P/Bld)Ordered By: Gt Galindo on 06-21-2022 Creatinine [Mass/Vol] 1.22 mg/dL 0.64-1.27 [facility] Eosinophils Auto (Bld) [#/Vo l]Ordered By: Gt Galindo on 06-21-2022 Eosinophils (Bld) [#/Vol] 0.2 10*3/uL 0.0-0.45 [facility] Eosinophils/100 WBC Auto (Bl d)Ordered By: Gt Galindo on 06-21-2022 Eosinophils/100 WBC (Bld) 2.4 % . [facility] Erythrocyte distribution wid th Auto (RBC) [Ratio]Ordered By: Gt Galindo on 06-21-2022 Erythrocyte distribution width (RBC) [Ratio] 14.3 % 12.0-14.8 [facility] Estimated glomerular filtrat ion rate (GFR) non- AmericanOrdered By: Gt Galindo on 06-21-2022 GFR/1.73 sq M.predicted among non-blacks MDRD (S/P/Bld) [Vol rate/Area] > 60 mL/Min [facility] Globulin Calc (S) [Mass/Vol] Ordered By: Gt Galindo on 06-21-2022 Globulin (S) [Mass/Vol] 3.3 g/dL [facility] Hematocrit Auto (Bld) [Volum e fraction]Ordered By: Gt Galindo on 06-21-2022 Hematocrit (Bld) [Volume fraction] 47.0 % 38.8-50.0 [facility] Hemoglobin [Mass/volume] in BloodOrdered By: Gt Galindo on 06-21-2022 Hemoglobin (Bld) [Mass/Vol] 15.6 g/dL 13.0-17.0 [facility] Laboratory - Chemistry and C hemistry - challengeOrdered By: Gt Galindo on 06-21-2022 Natriuretic peptide B (Bld) [Mass/Vol] 12.0 pg/mL 5-100 [facility] Laboratory - CoagulationOrde red By: Gt Galindo on 06-21-2022 PT Coag (PPP) [Time] 11.8 s 9.0-12.9 [facility] Laboratory - Hematology and Cell countsOrdered By: Gt Galindo on 06-21-2022 Nucleated RBC/100 WBC (Bld) [Ratio] 0.3 % 0-0.5 [facility] Laboratory - Microbiology an d Antimicrobial susceptibilityOrdered By: Gt Galindo on 06-21-2022 SARS-CoV-2 (COVID-19) RNA RAMIREZ+probe Ql (Unsp spec) N/A [facility] Leukocytes [#/volume] in Blo od by Automated countOrdered By: Gt Galindo on 06-21-2022 WBC (Bld) [#/Vol] 8.1 10*3/uL 4.5-11.0 [facility] Lymphocytes Auto (Bld) [#/Vo l]Ordered By: Gt Galindo on 06-21-2022 Lymphocytes (Bld) [#/Vol] 0.5 10*3/uL 1.00-4.8 [facility] Lymphocytes/100 WBC Auto (Bl d)Ordered By: Gt Galindo on 06-21-2022 Lymphocytes/100 WBC (Bld) 6.3 % . [facility] MCH Auto (RBC) [Entitic mass ]Ordered By: Gt Galindo on 06-21-2022 MCH (RBC) [Entitic mass] 27.2 pg 27.5-35.2 [facility] MCHC Auto (RBC) [Mass/Vol]Or dered By: Gt Galindo on 06-21-2022 MCHC (RBC) [Mass/Vol] 33.1 g/dL 32.5-35.6 [facility] MCV Auto (RBC) [Entitic vol] Ordered By: Gt Galindo on 06-21-2022 MCV (RBC) [Entitic vol] 82.0 fL 83.5-101 [facility] Monocytes Auto (Bld) [#/Vol] Ordered By: Gt Galindo on 06-21-2022 Monocytes (Bld) [#/Vol] 0.8 10*3/uL 0.0-0.8 [facility] Monocytes/100 WBC Auto (Bld) Ordered By: Gt Galindo on 06-21-2022 Monocytes/100 WBC (Bld) 9.8 % . [facility] Neutrophils Auto (Bld) [#/Vo l]Ordered By: Gt Galindo on 06-21-2022 Neutrophils (Bld) [#/Vol] 6.6 10*3/uL 1.8-7.7 [facility] Neutrophils/100 WBC Auto (Bl d)Ordered By: Gt Galindo on 06-21-2022 Neutrophils/100 WBC (Bld) 81.0 % . [facility] No Panel InformationOrdered By: Gt Galindo on 06-21-2022 Estimated GFR () > 60 mL/Min [facility] Comment on above: GFR estimated refere nce range: According to KDOQI guidelines, <60 ml/min/1.73m2 is sufficient to diagnose a patient with chronic kidney disease. Pharmacy Creatinine Clearance (Chem 93.61 [facility] SARS Antigen (LFIA) [facility] Platelet mean volume Auto (B ld) [Entitic vol]Ordered By: Gt Galindo on 06-21-2022 Platelet mean volume (Bld) [Entitic vol] 9.6 fL 6.6-10.1 [facility] Platelet poor plasma interna tional normalized ratio (INR) by coagulation assay (relatOrdered By: Gt Galindo on 06-21-2022 INR Coag (PPP) [Relative time] 1.0 {INR} [facility] Comment on above: INR Therapeutic Rang e A) Pre- and Peroperative OAT started two weeks before surgery. NOT HIP SURGERY: 1.5 - 2.5 HIP SURGERY: 2 - 3B) Primary and secondary prevention of venous THROMBOSIS: 2 - 3C) Active venous thrombosis, pulmonary embolismand prevention of recurrent venous thrombosis: 2 - 3D) Prevention of arterial thromboembolismincluding patients with mechanical heart valves: 3 - 4.5 Platelets Auto (Bld) [#/Vol] Ordered By: Gt Galindo on 06-21-2022 Platelets (Bld) [#/Vol] 202 10*3/uL 150-450 [facility] Protein [Mass/volume] in Ser um or PlasmaOrdered By: Gt Galindo on 06-21-2022 Protein [Mass/Vol] 7.2 g/dL 6.1-7.9 [facility] RBC Auto (Bld) [#/Vol]Ordere d By: Gt Galindo on 06-21-2022 RBC (Bld) [#/Vol] 5.73 10*6/uL 3.90-5.60 [facility] Serum or plasma alanine helm otransferase measurement without P-5'-P (enzymatic activiOrdered By: Gt Galindo on 06-21-2022 ALT No additional P-5'-P [Catalytic activity/Vol] 34 U/L [facility] Serum or plasma albumin/glob ulin mass ratioOrdered By: Gt Galindo on 06-21-2022 Albumin/Globulin [Mass ratio] 1.2 {ratio} [facility] Serum or plasma alkaline claribel sphatase measurement (enzymatic activity/volume)Ordered By: Gt Galindo on 06-21-2022 ALP [Catalytic activity/Vol] 96 U/L [facility] Serum or plasma anion gap de terminationOrdered By: Gt Galindo on 06-21-2022 Anion gap [Moles/Vol] 18.9 mmol/L 6.0-15.0 [facility] Serum or plasma aspartate am inotransferase measurement (enzymatic activity/volume)Ordered By: Gt Galindo on 06-21-2022 AST [Catalytic activity/Vol] 26 U/L [facility] Serum or plasma calcium marc urement (mass/volume)Ordered By: Gt Galindo on 06-21-2022 Calcium [Mass/Vol] 9.7 mg/dL 8.2-10.2 [facility] Serum or plasma chloride portillo surement (moles/volume)Ordered By: Gt Galindo on 06-21-2022 Chloride [Moles/Vol] 93 mmol/L 95-114 [facility] Serum or plasma glucose marc urement (mass/volume)Ordered By: Gt Galindo on 06-21-2022 Glucose [Mass/Vol] 284 mg/dL 70-100 [facility] Comment on above: ADA recommended refe rence rangeRandom Glucose Reference Range is dependent on time and content of last meal. Glucose of more than 200 mg/dL in a nonstressed, ambulatory subject supports the diagnosis of Diabetes Mellitus. Serum or plasma potassium me asurement (moles/volume)Ordered By: Gt Galindo on 06-21-2022 Potassium [Moles/Vol] 5.2 mmol/L 3.5-5.1 [facility] Serum or plasma sodium measu rement (moles/volume)Ordered By: Gt Galindo on 06-21-2022 Sodium [Moles/Vol] 132 mmol/L 136-146 [facility] Serum or plasma total biliru bin measurement (mass/volume)Ordered By: Gt Galindo on 06-21-2022 Bilirubin [Mass/Vol] 0.8 mg/dL 0.3-1.2 [facility] Serum or plasma total carbon dioxide measurement (moles/volume)Ordered By: Gt Galindo on 06-21-2022 CO2 [Moles/Vol] 25.3 mmol/L 22.0-30.0 [facility] Serum or plasma urea nitroge n measurement (mass/volume)Ordered By: Gt Galindo on 06-21-2022 Urea nitrogen [Mass/Vol] 22 mg/dL 9- [facility] Troponin I.cardiac [Mass/vol ume] in Serum or Plasma by High sensitivity methodOrdered By: Gt Galindo on 06-21-2022 Troponin I.cardiac High sensitivity method [Mass/Vol] < 3 pg/mL 0-20 [facility] BRIEF OP NOTon 02-08-2022 BRIEF OP NOT HNO ID: [id number] Author: Stephanie Lew MD Service: Interventional Radiology Author Type: Physician Type: Brief Op Note Filed: 02/08/2022 10:31 AM Note Text: BRIEF OPERATIVE / PROCEDURE NOTE LOG ID: [id number] SURGERY/PROCEDURE DATE: 02/08/2022 INCISION/PROCEDURE START TIME: 10:00 AM INCISION CLOSE/PROCEDURE END TIME: 10:20 AM SURGEON(S)/PROCEDURALIST(S ) AND LABEL TACKER(S): Surgeon(s) and Role: * Stephanie Lew MD - Primary No Additional Staff SURGERY/PROCEDURE(S): Transjugular liver biopsy ANESTHESIA: Procedural Sedation FINDINGS: Patent R IJ and middle hepatic vein Pressures: RA 8, IVC 10, Free hepatic 11, Wedge hepatic 15 mmHg. Corrected sinusoidal gradient 4 mmHg. 3 passes, 3 cores ESTIMATED BLOOD LOSS: <10 mls SPECIMENS: liver core COMPLICATIONS: None PRE-OP/PRE-PROCEDURE DIAGNOSIS: fatty liver POST-OP/POST-PROCEDURE DIAGNOSIS: Same as Preop SIGNATURE: Stephanie Lew MD PATIENT NAME: Mannie Michel DATE: February 08, 2022 TIME: 10:28 AM Normal [facility] HISTORY PHYSICALon 2 HISTORY PHYSICAL HNO ID: [id number] Author: Stephanie Lew MD Service: Interventional Radiology Author Type: Physician Type: HANDP Filed: 02/08/2022 9:39 AM Note Text: RADIOLOGY PROCEDURAL SEDATION HISTORY AND PHYSICAL EXAM SERVICE DATE: 02/08/2022 SERVICE TIME: 9:36 AM Subjective HPI: This is a 61 year old male who presents with a history of fatty liver. He is here for transjugular liver biopsy with pressure measurements. PROCEDURE SCHEDULED: Procedure(s) with comments: PERCUTANEOUS NEEDLE BIOPSY OF LIVER (Pending) - pt needs an INR RADIOLOGY ORDER PLACED: PAST ANESTHESIA HISTORY: No history of adverse event PAST MEDICAL HISTORY Diagnosis Date - Cyst of skin right forearm - Depression - Diabetes mellitus type 1 (HCC) 20+years - Hearing loss of left ear - Heart attack (HCC) 2005 - Hyperlipidemia - Hypertension - Neuropathy (HCC) - Vertigo PAST SURGICAL HISTORY Procedure Laterality Date - STENT PLACEMENT 2005 4 or 5 stents placed on each side of heart Prior to Admission medications as of 02/08/22 0900 Medication Sig Last Dose Taking insulin glargine (LANTUS) 100 unit/mL (3 mL) inpn Inject 62 Units subcutaneously twice daily. insulin aspart protamine-insulin aspart 70-30 (NOVOLOG MIX 70-30) 100 unit/mL (70-30) inpn injection Inject 2 Units subcutaneously twice daily before meals. 2-units for every 10 carbs with every meal. 4-5 times per day. FUROSEMIDE ORAL Take by mouth. OMEPRAZOLE ORAL Take by mouth. isosorbide mononitrate ER (IMDUR) 30 mg 24 hr tablet Take 1 tablet by mouth once daily. clopidogrel (PLAVIX) 75 mg tablet Take 1 tablet by mouth once daily. 02/01/2022 metoprolol tartrate, short acting, (LOPRESSOR) 100 mg tablet Take 1 tablet by mouth twice daily. citalopram 40 mg tablet Take 1 tablet by mouth once daily. gabapentin (NEURONTIN) 300 mg capsule Take 2 capsules by mouth three times daily. lisinopril 5 mg tablet Take 1 tablet by mouth once daily. atorvastatin (LIPITOR) 80 mg tablet Take 1 tablet by mouth once daily. aspirin 325 mg tablet Take 1 tablet by mouth once daily. metFORMIN 500 mg tablet Take 2 tablets by mouth twice daily. naproxen (NAPROSYN) 500 mg tablet Take 1 tablet by mouth once daily. for pain. ALLERGIES Allergen Reactions - Codeine Mental Status Change Objective PHYSICAL EXAM: The remainder of the physical exam is noncontributory. AIRWAY: Airway Visualization of Uvula: Yes Mouth opening greater than 2 fingerbreadths: Yes Neck Full Range of Motion: Yes LUNGS: Lungs clear to auscultation, Good diaphragmatic excursion CARDIAC: Normal S1 and S2; no rubs, murmurs, or gallops Assessment/Plan ASA Class: ASA Class:: Patient with severe systemic disease Provisional Diagnosis/Treatment Plan: TJLBx SEDATION GOAL: Moderate SIGNATURE: Stephanie eLw MD PATIENT NAME: Mannie Michel DATE: February 08, 2022 TIME: 9:36 AM [facility] IR HEPATIC VENOGRAM W/PRESSo n 02-08-2022 IR HEPATIC VENOGRAM W/PRESS * * *Final Report* * * DATE OF EXAM: Feb 08 2022 10:30AM [facility] - IR HEPATIC VENOGRAM W/PRESS / PROCEDURE REASON: liver disease * * * * Physician Interpretation * * * * PROCEDURE: TRANSJUGULAR LIVER BIOPSY WITH PRESSURE MEASUREMENTS Procedural Personnel Attending physician(s): Stephanie Lew M.D. Fellow physician(s): None Resident physician(s): None Advanced practice provider(s): None Medical Student(s): None Pre-procedure diagnosis: Fatty liver Post-procedure diagnosis: Same Indication: Elevated liver enzymes Additional clinical history: None PROCEDURE SUMMARY: - Venous access with ultrasound guidance - Hepatic venography - Pressure measurements - Transjugular liver biopsy with fluoroscopic guidance - Additional procedure(s): None PROCEDURE DETAILS: Pre-procedure Consent: Consent obtained with the patient as documented. Medication reconciliation: Done Justine-procedure discussion: The appropriate elements of the pre-procedure discussion, safety check list and sign-out were performed. Time out was completed before start of procedure. Preparation: The site was prepared and draped using maximal sterile barrier technique including cutaneous antisepsis. Contrast: Contrast agent: OMNIPAQUE 240 Contrast volume (mL): 5 mL Image Guidance: Fluoroscopic guidance. RADIATION/DOSE: FLUOROSCOPIC RADIATION SUMMARY: Plane A, Air Kerma: 57.0 mGy Dose Area Product (DAP): 861.69 Fluoro Time: 2:42 min:sec Radiation dose exceed 5 Gy: No If radiation dose exceeded 5 Gy, was counseling and instructional brochure provided: N/A ANESTHESIA/SEDATION: Level of anesthesia/sedation: Moderate sedation (conscious sedation) Anesthesia/sedation administered by: Independent trained observer under attending supervision with continuous monitoring of the patient?s level of consciousness and physiologic status Total intra-service sedation time (minutes): 30 Local anesthesia: 2 % lidocaine Additional med: None Additional med: None Start of procedure: 10:00 AM End of procedure: 10:20 AM TECHNIQUE: Patient position: Supine Access Local anesthesia was administered. The vessel was sonographically evaluated and determined to be patent. Real time ultrasound was used to visualize needle entry into the vessel and a permanent image was stored. A 9 F long vascular sheath was placed. Vein accessed: Right internal jugular vein Access technique: Micropuncture set with 21 gauge needle Venography Vein catheterized: Middle hepatic vein Indication for venography: Document catheter position Findings: Patent middle hepatic vein Pressure measurements Pressure measurements were obtained via balloon occlusion catheter. Mean right atrial pressure (mmHg): 8 Mean IVC pressure (mmHg): 10 Mean free hepatic vein pressure (mmHg): 11 Mean wedged hepatic vein pressure (mmHg): 15 Biopsy Samples were obtained of the liver parenchyma from the hepatic vein using the transjugular liver biopsy set. Core needle biopsy device: [employer] 7 F Liver Access and Biopsy (19 G needle) Core needle size (gauge): 19 G Number of core specimens: 3 Specimen preparation: Formalin Additional Details Additional description of procedure: None Equipment details: None Specimens removed: Biopsy samples as detailed above. Surgical pathology Estimated blood loss (mL): Less than 10 Standardized report: SIR_TransjugularLiverBiops y_v3 Closure The sheath was removed and hemostasis was achieved with manual compression and no additional aid. A sterile bandage was applied. COMPLICATIONS: No immediate complications CONCLUSION: The patient was comfortable and was transferred to the recovery room in stable condition. The procedure was performed by the: attending radiologist, without an legal executive assistant. The attending radiologist performed the following procedural activities: Entire procedure IMPRESSION: TRANSJUGULAR LIVER BIOPSY OBTAINED. THE CORRECTED SINUSOIDAL PRESSURE (WEDGED HEPATIC VEIN PRESSURE MINUS FREE HEPATIC VEIN PRESSURE) IS 4 MMHG. PLAN: SPECIMEN(S) SENT FOR EVALUATION. ATTESTATION: Signer name: Stephanie Lew MD I attest that I was present for the entire procedure. I reviewed the stored images and agree with the report as written. Photocopying Equipment Mechanic: PSCB Transcribe Date/Time: Feb 08 2022 10:31A Dictated by : STEPHANIE LEW MD This examination was interpreted and the report reviewed and electronically signed by: STEPHANIE LEW MD on Feb 08 2022 10:34AM EST [id number] [facility] IR TRANSCATH BIOPSY SURGon 0 02-08-2022 IR TRANSCATH BIOPSY SURG * * *Final Report* * * DATE OF EXAM: Feb 08 2022 10:30AM [facility] - IR TRANSCATH BIOPSY SURG / PROCEDURE REASON: liver disease * * * * Physician Interpretation * * * * PROCEDURE: TRANSJUGULAR LIVER BIOPSY WITH PRESSURE MEASUREMENTS Procedural Personnel Attending physician(s): Stephanie Lew M.D. Fellow physician(s): None Resident physician(s): None Advanced practice provider(s): None Medical Student(s): None Pre-procedure diagnosis: Fatty liver Post-procedure diagnosis: Same Indication: Elevated liver enzymes Additional clinical history: None PROCEDURE SUMMARY: - Venous access with ultrasound guidance - Hepatic venography - Pressure measurements - Transjugular liver biopsy with fluoroscopic guidance - Additional procedure(s): None PROCEDURE DETAILS: Pre-procedure Consent: Consent obtained with the patient as documented. Medication reconciliation: Done Justine-procedure discussion: The appropriate elements of the pre-procedure discussion, safety check list and sign-out were performed. Time out was completed before start of procedure. Preparation: The site was prepared and draped using maximal sterile barrier technique including cutaneous antisepsis. Contrast: Contrast agent: OMNIPAQUE 240 Contrast volume (mL): 5 mL Image Guidance: Fluoroscopic guidance. RADIATION/DOSE: FLUOROSCOPIC RADIATION SUMMARY: Plane A, Air Kerma: 57.0 mGy Dose Area Product (DAP): 861.69 Fluoro Time: 2:42 min:sec Radiation dose exceed 5 Gy: No If radiation dose exceeded 5 Gy, was counseling and instructional brochure provided: N/A ANESTHESIA/SEDATION: Level of anesthesia/sedation: Moderate sedation (conscious sedation) Anesthesia/sedation administered by: Independent trained observer under attending supervision with continuous monitoring of the patient?s level of consciousness and physiologic status Total intra-service sedation time (minutes): 30 Local anesthesia: 2 % lidocaine Additional med: None Additional med: None Start of procedure: 10:00 AM End of procedure: 10:20 AM TECHNIQUE: Patient position: Supine Access Local anesthesia was administered. The vessel was sonographically evaluated and determined to be patent. Real time ultrasound was used to visualize needle entry into the vessel and a permanent image was stored. A 9 F long vascular sheath was placed. Vein accessed: Right internal jugular vein Access technique: Micropuncture set with 21 gauge needle Venography Vein catheterized: Middle hepatic vein Indication for venography: Document catheter position Findings: Patent middle hepatic vein Pressure measurements Pressure measurements were obtained via balloon occlusion catheter. Mean right atrial pressure (mmHg): 8 Mean IVC pressure (mmHg): 10 Mean free hepatic vein pressure (mmHg): 11 Mean wedged hepatic vein pressure (mmHg): 15 Biopsy Samples were obtained of the liver parenchyma from the hepatic vein using the transjugular liver biopsy set. Core needle biopsy device: [employer] 7 F Liver Access and Biopsy (19 G needle) Core needle size (gauge): 19 G Number of core specimens: 3 Specimen preparation: Formalin Additional Details Additional description of procedure: None Equipment details: None Specimens removed: Biopsy samples as detailed above. Surgical pathology Estimated blood loss (mL): Less than 10 Standardized report: SIR_TransjugularLiverBiops y_v3 Closure The sheath was removed and hemostasis was achieved with manual compression and no additional aid. A sterile bandage was applied. COMPLICATIONS: No immediate complications CONCLUSION: The patient was comfortable and was transferred to the recovery room in stable condition. The procedure was performed by the: attending radiologist, without an legal executive assistant. The attending radiologist performed the following procedural activities: Entire procedure IMPRESSION: TRANSJUGULAR LIVER BIOPSY OBTAINED. THE CORRECTED SINUSOIDAL PRESSURE (WEDGED HEPATIC VEIN PRESSURE MINUS FREE HEPATIC VEIN PRESSURE) IS 4 MMHG. PLAN: SPECIMEN(S) SENT FOR EVALUATION. ATTESTATION: Signer name: Stephanie Lew MD I attest that I was present for the entire procedure. I reviewed the stored images and agree with the report as written. Photocopying Equipment Mechanic: PSCB Transcribe Date/Time: Feb 08 2022 10:31A Dictated by : STEPHANIE LEW MD This examination was interpreted and the report reviewed and electronically signed by: STEPHANIE LEW MD on Feb 08 2022 10:34AM EST [id number] [facility] IR US VASCULAR ACCESS GUIDEo n 02-08-2022 IR US VASCULAR ACCESS GUIDE * * *Final Report* * * DATE OF EXAM: Feb 08 2022 10:30AM [facility] - IR US VASCULAR ACCESS GUIDE / PROCEDURE REASON: liver disease * * * * Physician Interpretation * * * * PROCEDURE: TRANSJUGULAR LIVER BIOPSY WITH PRESSURE MEASUREMENTS Procedural Personnel Attending physician(s): Stephanie Lew M.D. Fellow physician(s): None Resident physician(s): None Advanced practice provider(s): None Medical Student(s): None Pre-procedure diagnosis: Fatty liver Post-procedure diagnosis: Same Indication: Elevated liver enzymes Additional clinical history: None PROCEDURE SUMMARY: - Venous access with ultrasound guidance - Hepatic venography - Pressure measurements - Transjugular liver biopsy with fluoroscopic guidance - Additional procedure(s): None PROCEDURE DETAILS: Pre-procedure Consent: Consent obtained with the patient as documented. Medication reconciliation: Done Justine-procedure discussion: The appropriate elements of the pre-procedure discussion, safety check list and sign-out were performed. Time out was completed before start of procedure. Preparation: The site was prepared and draped using maximal sterile barrier technique including cutaneous antisepsis. Contrast: Contrast agent: OMNIPAQUE 240 Contrast volume (mL): 5 mL Image Guidance: Fluoroscopic guidance. RADIATION/DOSE: FLUOROSCOPIC RADIATION SUMMARY: Plane A, Air Kerma: 57.0 mGy Dose Area Product (DAP): 861.69 Fluoro Time: 2:42 min:sec Radiation dose exceed 5 Gy: No If radiation dose exceeded 5 Gy, was counseling and instructional brochure provided: N/A ANESTHESIA/SEDATION: Level of anesthesia/sedation: Moderate sedation (conscious sedation) Anesthesia/sedation administered by: Independent trained observer under attending supervision with continuous monitoring of the patient?s level of consciousness and physiologic status Total intra-service sedation time (minutes): 30 Local anesthesia: 2 % lidocaine Additional med: None Additional med: None Start of procedure: 10:00 AM End of procedure: 10:20 AM TECHNIQUE: Patient position: Supine Access Local anesthesia was administered. The vessel was sonographically evaluated and determined to be patent. Real time ultrasound was used to visualize needle entry into the vessel and a permanent image was stored. A 9 F long vascular sheath was placed. Vein accessed: Right internal jugular vein Access technique: Micropuncture set with 21 gauge needle Venography Vein catheterized: Middle hepatic vein Indication for venography: Document catheter position Findings: Patent middle hepatic vein Pressure measurements Pressure measurements were obtained via balloon occlusion catheter. Mean right atrial pressure (mmHg): 8 Mean IVC pressure (mmHg): 10 Mean free hepatic vein pressure (mmHg): 11 Mean wedged hepatic vein pressure (mmHg): 15 Biopsy Samples were obtained of the liver parenchyma from the hepatic vein using the transjugular liver biopsy set. Core needle biopsy device: [employer] 7 F Liver Access and Biopsy (19 G needle) Core needle size (gauge): 19 G Number of core specimens: 3 Specimen preparation: Formalin Additional Details Additional description of procedure: None Equipment details: None Specimens removed: Biopsy samples as detailed above. Surgical pathology Estimated blood loss (mL): Less than 10 Standardized report: SIR_TransjugularLiverBiops y_v3 Closure The sheath was removed and hemostasis was achieved with manual compression and no additional aid. A sterile bandage was applied. COMPLICATIONS: No immediate complications CONCLUSION: The patient was comfortable and was transferred to the recovery room in stable condition. The procedure was performed by the: attending radiologist, without an legal executive assistant. The attending radiologist performed the following procedural activities: Entire procedure IMPRESSION: TRANSJUGULAR LIVER BIOPSY OBTAINED. THE CORRECTED SINUSOIDAL PRESSURE (WEDGED HEPATIC VEIN PRESSURE MINUS FREE HEPATIC VEIN PRESSURE) IS 4 MMHG. PLAN: SPECIMEN(S) SENT FOR EVALUATION. ATTESTATION: Signer name: Stephanie Lew MD I attest that I was present for the entire procedure. I reviewed the stored images and agree with the report as written. Photocopying Equipment Mechanic: JAYJAY Transcribe Date/Time: Feb 08 2022 10:31A Dictated by : STEPHANIE LEW MD This examination was interpreted and the report reviewed and electronically signed by: STEPHANIE LEW MD on Feb 08 2022 10:34AM EST [id number] [facility] IR VENO [address]ST ORDER CATH [address] on 02-08-[address] * * *Final Report* * * DATE OF EXAM: Feb 08 2022 10:30AM [facility] - IR VENO 1ST ORDER CATH [address] / PROCEDURE REASON: liver disease * * * * Physician Interpretation * * * * PROCEDURE: TRANSJUGULAR LIVER BIOPSY WITH PRESSURE MEASUREMENTS Procedural Personnel Attending physician(s): Stephanie Lew M.D. Fellow physician(s): None Resident physician(s): None Advanced practice provider(s): None Medical Student(s): None Pre-procedure diagnosis: Fatty liver Post-procedure diagnosis: Same Indication: Elevated liver enzymes Additional clinical history: None PROCEDURE SUMMARY: - Venous access with ultrasound guidance - Hepatic venography - Pressure measurements - Transjugular liver biopsy with fluoroscopic guidance - Additional procedure(s): None PROCEDURE DETAILS: Pre-procedure Consent: Consent obtained with the patient as documented. Medication reconciliation: Done Justine-procedure discussion: The appropriate elements of the pre-procedure discussion, safety check list and sign-out were performed. Time out was completed before start of procedure. Preparation: The site was prepared and draped using maximal sterile barrier technique including cutaneous antisepsis. Contrast: Contrast agent: OMNIPAQUE 240 Contrast volume (mL): 5 mL Image Guidance: Fluoroscopic guidance. RADIATION/DOSE: FLUOROSCOPIC RADIATION SUMMARY: Plane A, Air Kerma: 57.0 mGy Dose Area Product (DAP): 861.69 Fluoro Time: 2:42 min:sec Radiation dose exceed 5 Gy: No If radiation dose exceeded 5 Gy, was counseling and instructional brochure provided: N/A ANESTHESIA/SEDATION: Level of anesthesia/sedation: Moderate sedation (conscious sedation) Anesthesia/sedation administered by: Independent trained observer under attending supervision with continuous monitoring of the patient?s level of consciousness and physiologic status Total intra-service sedation time (minutes): 30 Local anesthesia: 2 % lidocaine Additional med: None Additional med: None Start of procedure: 10:00 AM End of procedure: 10:20 AM TECHNIQUE: Patient position: Supine Access Local anesthesia was administered. The vessel was sonographically evaluated and determined to be patent. Real time ultrasound was used to visualize needle entry into the vessel and a permanent image was stored. A 9 F long vascular sheath was placed. Vein accessed: Right internal jugular vein Access technique: Micropuncture set with 21 gauge needle Venography Vein catheterized: Middle hepatic vein Indication for venography: Document catheter position Findings: Patent middle hepatic vein Pressure measurements Pressure measurements were obtained via balloon occlusion catheter. Mean right atrial pressure (mmHg): 8 Mean IVC pressure (mmHg): 10 Mean free hepatic vein pressure (mmHg): 11 Mean wedged hepatic vein pressure (mmHg): 15 Biopsy Samples were obtained of the liver parenchyma from the hepatic vein using the transjugular liver biopsy set. Core needle biopsy device: [employer] 7 F Liver Access and Biopsy (19 G needle) Core needle size (gauge): 19 G Number of core specimens: 3 Specimen preparation: Formalin Additional Details Additional description of procedure: None Equipment details: None Specimens removed: Biopsy samples as detailed above. Surgical pathology Estimated blood loss (mL): Less than 10 Standardized report: SIR_TransjugularLiverBiops y_v3 Closure The sheath was removed and hemostasis was achieved with manual compression and no additional aid. A sterile bandage was applied. COMPLICATIONS: No immediate complications CONCLUSION: The patient was comfortable and was transferred to the recovery room in stable condition. The procedure was performed by the: attending radiologist, without an legal executive assistant. The attending radiologist performed the following procedural activities: Entire procedure IMPRESSION: TRANSJUGULAR LIVER BIOPSY OBTAINED. THE CORRECTED SINUSOIDAL PRESSURE (WEDGED HEPATIC VEIN PRESSURE MINUS FREE HEPATIC VEIN PRESSURE) IS 4 MMHG. PLAN: SPECIMEN(S) SENT FOR EVALUATION. ATTESTATION: Signer name: Stephanie Lew MD I attest that I was present for the entire procedure. I reviewed the stored images and agree with the report as written. Photocopying Equipment Mechanic: JAYJAY Transcribe Date/Time: Feb 08 2022 10:31A Dictated by : STEPHANIE LEW MD This examination was interpreted and the report reviewed and electronically signed by: STEPHANIE LEW MD on Feb 08 2022 10:34AM EST [id number] [facility] NURSING PROGon 02-08-2022 NURSING PROG HNO ID: [id number] Author: Araceli Bailey RN Service: Nursing Author Type: Registered Nurse Type: Nursing Progress Note Filed: 02/08/2022 10:45 AM Note Text: PATIENT EDUCATION TOPIC: PROCEDURE / SURGERY: Post Procedure Teaching: Med Administration, Symptom Management and Wound Care PATIENT NAME: Mannie Michel PATIENT LOCATION: INTERVENTIONAL RADIOL* READINESS TO LEARN COGNITIVE ABILITY: Alert and oriented MOTIVATION TO LEARN: Interested FAMILY SUPPORT: None - Unavailable/disinterested INSTRUCTION PROVIDED TO: Patient PATIENT LEARNS BEST BY: Individual Instruction FACTORS AFFECTING LEARNING: None PHYSICAL LIMITATIONS AFFECTING LEARNING: None LEARNING RESPONSE DIAGNOSIS: ADULT: Well Adult PATIENT/FAMILY RESPONSE: Verbalizes understanding of: POST-PROCEDURE INSTRUCTIONS-Correct actions to take to reduce post procedure complications METHOD OF INSTRUCTION: Individual instruction FOLLOW-UP PLAN: Complete - No need for follow-up Patient instructed to call with any further issues Follow-up with Primary Care INSTRUCTIONAL AIDS USED: NA SUPPLEMENTAL MATERIAL PROVIDED TO PATIENT: None REFERRAL (RECOMMENDATION): None Electronically Signed By: Araceli Bailey [facility] NURSING PROG HNO ID: [id number] Author: Sari Daniels RN Service: Radiology Author Type: Registered Nurse Type: Nursing Progress Note Filed: 02/08/2022 9:02 AM Note Text: PATIENT EDUCATION TOPIC: PROCEDURE / SURGERY: Procedure/Surgery: Transjugular liver biopsy PATIENT NAME: Mannie Michel PATIENT LOCATION: [facility]* READINESS TO LEARN COGNITIVE ABILITY: Alert and oriented MOTIVATION TO LEARN: Interested FAMILY SUPPORT: Unable to assess - Family not present INSTRUCTION PROVIDED TO: Patient PATIENT LEARNS BEST BY: Individual Instruction Written Instruction - Hand-outs Verbal Instruction FACTORS AFFECTING LEARNING: None PHYSICAL LIMITATIONS AFFECTING LEARNING: None LEARNING RESPONSE DIAGNOSIS: ADULT: Transjugular liver biopsy PATIENT/FAMILY RESPONSE: Verbalizes understanding of: POST-PROCEDURE INSTRUCTIONS-Correct actions to take to reduce post procedure complications PRE-PROCEDURE INSTRUCTIONS-Correct action to take to follow pre-procedure instructions METHOD OF INSTRUCTION: Individual instruction Written instruction - handouts Verbal instruction FOLLOW-UP PLAN: Complete - No need for follow-up INSTRUCTIONAL AIDS USED: NA SUPPLEMENTAL MATERIAL PROVIDED TO PATIENT: None REFERRAL (RECOMMENDATION): None Electronically Signed By: Sari Barrera [facility] PT panel Coag (PPP)on 2021 INR Coag (PPP) [Relative time] 0.9 {INR} Normal 0.9-1.3 [facility] Comment on above: Order Comment: Jessika herron Type: BLOOD SPECIMENOrdering Facility: [facility] Address: [address] [place], [place] [id number] Result Comment: Tatyana min K Antagonist (VKA) Therapeutic Range: INR 2 to 3 (Target INR of 2.5) Note: For patients treated with VKA drugs, such as warfarin, the [employer] 2012 Guideline recommends a therapeutic INR range of 2 to 3 (target INR of 2.5). This recommendation includes high-risk patients with antiphospholipid syndrome with previous arterial or venous thromboembolism, current-generation mechanical or bioprosthetic aortic heart valve replacement. Note: Patients with mechanical aortic valve replacement and additional risk factors for thromboembolic events (atrial fibrillation, previous thromboembolism, LV dysfunction, hypercoagulable conditions) or an older generation mechanical AVR (i.e., ball in-Cage) or any mechanical MVR should have a INR therapeutic range of 2.5 to 3.5 (target INR of 3). Tj MCGEE, et al. Chest 2012, 141:7S-47S Andrei RA, et al. JACC 2017, 70: 252-289 Performed By: #### 3 4528-0 ####[facility]ORATORYCLIA [id number] [address] [place] PT Coag (PPP) [Time] 10.1 s Normal 9.7-13.0 [facility] Comment on above: Order Comment: Jessika herron Type: BLOOD SPECIMENOrdering Facility: [facility] Address: [address] [place] [address] Performed By: #### 3 4528-0 ####[facility]ORATORYCLIA [id number] [address] SURGICAL PATHOLOGYon 022 CASE REPORT Normal [facility] Comment on above: Order Comment: Specunique herron Type: TISSUE SPECIMEN Order[facility] Facility: [facility] Address: [address] [place] [address] Result Comment: Surg ical Pathology Report Case: [id number] Authorizing Provider: Stephanie Lew MD Collected: 02/08/2022 09:53 AM Ordering Location: INTERVENTIONAL Received: 02/08/2022 11:03 AM RADIOLOGY Pathologist: Rios Tracy MD Specimen: LIVER BIOPSY, Transjugular Liver Biopsy Performed By: #### S #### [facility] CLIA [id number] [address] [place], [place] [address] [address] DIAGNOSIS COMMENT Normal [facility] Comment on above: Order Comment: Jessika herron Type: TISSUE SPECIMEN [facility] Facility[facility] Address: [address] [place] [address] Result Comment: This liver biopsy shows preserved hepatic architecture. Portal tracts do not show significant inflammation, interface activity, bile duct injury, or ductular reaction. The hepatic parenchyma does not show significant inflammation or hepatocellular injury. Mild steatosis is present (approximately 10% of sampled parenchyma), without ballooned hepatocytes, Tanvi hyaline, or cholestasis. Trichrome stain does not show fibrosis. No cytoplasmic globules typical of uhstr-[id number] deficiency are present on PAS-D, and iron is negative. Overall, the biopsy shows mild steatosis without evidence of steatohepatitis. NAFLD Activity Score (KIRT): Steatosis: 1 (5-33%). Lobular inflammation (foci per 20x field): 1 (<2). Hepatocyte balloonin (none). Total Score: 2/8. Stage: 0 (no fibrosis) Reference: Isabel CASAS, Cheli EM, et al. Hepatology 41(6):1313-21, 2005. Performed By: #### S #### [facility] CLIA [id number] [address] [place] [address] [place] FINAL DIAGNOSIS Liver, biopsy: Normal [facility] Comment on above: Order Comment: Speci men Type: TISSUE SPECIMEN Ordering Facility: [facility] Address: [address] [place] [address] Result Comment: - Mi ld steatosis. Performed By: #### S #### [facility] CLIA [id number] [address] [place] [address] [place] FINAL PERFORMING LAB Normal [facility] Comment on above: Order Comment: Speci men Type: TISSUE SPECIMEN Ordering Facility: [facility] Address: [address] [place] [address] Result Comment: Diag nostic interpretation performed at [facility], [address] [place] [address] CLIA# [id number] Director Of Student Financial Services: Caio Lizarraga M.D. Performed By: #### S #### [facility] CLIA [id number] [address] [place] [address] [place] GROSS DESCRIPTION Normal [facility] Comment on above: Order Comment: Speci men Type: TISSUE SPECIMEN Ordering Facility: [facility] Address: [address] [place] [address] Result Comment: A. L IVER BIOPSY. Received in formalin are multiple segments of cylindrical tissue aggregating to 2.0 x 0.1 x 0.1 cm, anderson-orange and of a soft and friable consistency. Totally submitted in one cassette. EJL February 08, 2022 3:36 PM Gross examination performed at [facility], [address] [place] [address] Performed By: #### S #### [facility] CLIA [id number] [address] [place] [address] [place] CNPLeyda 02-07-2022 CNPN Telephone (RGFV) -- MANNIE MICHEL ([id number]) 1960 M Date Time Provider Department 02/07/22 JACLYN GUZMAN RGFV During your visit today, we recorded the following information about you: RT Lalita(R) 02/07/2022 10:22 AM Signed You are scheduled for a liver biopsy, On 02/08/22. You are to arrive at 830 am and Report to [facility] First Floor Radiology Registration Desk. You can expect to be here for 4-8 hours. Diet: Do not eat any solid food after midnight the day of/night before your procedure. You may drink clear liquids until 8 am, which means black coffee, apple juice, black tea, or water only. Medications: Ok to take your cardiac, blood pressure, anti-seizure, and chronic pain medications with a sip of water, please take prior to arrival. Bring your current medication list. RADIOLOGY RECOMMENDS THESE MEDICATION RESTRICTIONS: Are you taking any of following medications? Plavix. IFok with your Prescribing Provider: Stop Plavix 5 days prior to this procedure. Labs: Lab-work needs to be drawn? Yes Price Analyst/Transportation: How will you be arriving for your procedure? Private car. You will need a responsible adult to accompany you to and from the procedure. Your wedding transportation driver is required to stay with you until you are taken into the procedure room. Spoke directly with patient Allergies As of Date: 02/07/2022 Noted Allergy Reaction CODEINE 08/11/2013 1 - Mental Status Change Date Reviewed: 02/07/2022 Reviewed by: Stephanie Lew MD - Fully Assessed Reason for Visit: Radiology Pre Procedure Instructions [1506] Prescriptions as of 02/07/2022 - insulin glargine (LANTUS) 100 unit/mL (3 mL) inpn Inject 62 Units subcutaneously twice daily. - insulin aspart protamine-insulin aspart 70-30 (NOVOLOG MIX 70-30) 100 unit/mL (70-30) inpn injection Inject 2 Units subcutaneously twice daily before meals. 2-units for every 10 carbs with every meal. 4-5 times per day. - FUROSEMIDE ORAL Take by mouth. - OMEPRAZOLE ORAL Take by mouth. - isosorbide mononitrate ER (IMDUR) 30 mg 24 hr tablet Take 1 tablet by mouth once daily. - clopidogrel (PLAVIX) 75 mg tablet Take 1 tablet by mouth once daily. - metoprolol tartrate, short acting, (LOPRESSOR) 100 mg tablet Take 1 tablet by mouth twice daily. - citalopram 40 mg tablet Take 1 tablet by mouth once daily. - gabapentin (NEURONTIN) 300 mg capsule Take 2 capsules by mouth three times daily. - lisinopril 5 mg tablet Take 1 tablet by mouth once daily. - atorvastatin (LIPITOR) 80 mg tablet Take 1 tablet by mouth once daily. - aspirin 325 mg tablet Take 1 tablet by mouth once daily. - metFORMIN 500 mg tablet Take 2 tablets by mouth twice daily. - naproxen (NAPROSYN) 500 mg tablet Take 1 tablet by mouth once daily. for pain. Problem List As Of Date 02/07/2022 Noted Resolved Left varicocele [I86.1] 05/23/2016 Testis pain [N50.819] 05/23/2016 Morbid obesity due to excess calories (HCC) [E6*05/23/2016 Encounter Status:Closed by JACLYN GUZMAN on 02/07/22 [facility] Tobacco Screening.on 022 Adult depression screening assessment No [facility] 250 DO Work Phone: Tobacco use status [facility] b) No M [facility] 250 DO Work Phone: [facility] CARDIAC STRESS/REST INJE CTIONon 09-11-2021 [facility] CARDIAC STRESS/REST INJECTION Patient Name: MANNIE MICHEL STUDY: MYOCARDIAL PERFUSION STRESS TEST WITH LEXISCAN Performing facility: [facility], [address] [place] [address] [address], [place] [address] [facility] Provider: Holland Santoyo MD, [facility] PCP: [facility] Supervising provider: Jad Contreras MD, [facility] INDICATION: Chest Pain; CAD; HISTORY: Gender: M; Age: 60 y/o ; Height: 0 cm; Weight: 0 kg. High Cholesterol; CAD; Diabetes; HTN; Chest Pain; Quit smoking unknown years ago. Cardiac catheterization on 2012. PTCA on 2012. COMPARISON: No comparison. ACCESSION NUMBER(S): [id number]; [id number]; [id number] ORDERING CLINICIAN: ENDY SANTOYO TECHNIQUE: TWO DAY protocol. Stress injection: Date:09-12-21, 35.7 mCi of Myoview IV 20 seconds after rapid injection of Lexiscan. Rest injection: Date: 09-11-21, 30.5 mCi of Myoview IV at rest. The patient had a rapid injection of 0.4 mg of Lexiscan IV over 10 seconds. Imaging was performed by gated tomographic technique. Reason for Lexiscan: uses walker/cane STRESS TEST DATA: Resting heart rate was 79 BPM. Resting blood pressure was 110/66 mmHg. Peak blood pressure was 122/70 mmHg. Peak heart rate was 93 BPM. TEST TERMINATED DUE TO: Protocol completed FINDINGS: STRESS TEST RESULTS: Resting electrocardiogram revealed normal sinus rhythm. There were no significant ischemic ECG changes or dysrhythmias. The patient did not have chest pains/symptoms during procedure. There was a normal recovery phase. IMAGING RESULTS: Image quality was good. Rest and stress tomographic images were reviewed and revealed normal perfusion without evidence of ischemia, myocardial infarction, or left ventricular dilatation with stress. Overall left ventricular systolic function appeared to be normal without regional wall motion abnormalities. Ejection fraction was 62%. TID is 1.06 and is normal. There was no evidence of attenuation artifact. IMPRESSION: Normal Lexiscan Myoview cardiac perfusion stress test. No evidence of ischemia or myocardial infarction by perfusion imaging. Normal left ventricular systolic function, ejection fraction 62%. No previous studies are available for comparison. Electronically signed by: JAD CONTRERAS MD Normal [facility] No Panel Informationon 09-11 [facility] haim 250 DO Work Phone: CBC and Differentialon 05-23 Abs Baso 0.03 k/uL Normal <0.11 [facility] Abs Crittenden 0.74 k/uL Normal <0.87 [facility] Abs Neut 6.45 k/uL Normal 1.45-7.50 [facility] Absolute nRBC <0.01 Normal <0.01 [facility] Basophils/100 WBC (Bld) 0.3 % Normal [facility] DTYPE Auto Diff Normal [facility] Eosinophils (Bld) [#/Vol] 0.18 10*3/uL Normal <0.46 [facility] Eosinophils/100 WBC (Bld) 2.1 % Normal [facility] Erythrocyte distribution width (RBC) [Ratio] 14.5 % Normal 11.5-15.0 [facility] Hematocrit (Bld) [Volume fraction] 47.0 % Normal 39.0-51.0 [facility] Hemoglobin (Bld) [Mass/Vol] 15.1 g/dL Normal 13.0-17.0 [facility] Lymphocytes (Bld) [#/Vol] 1.34 10*3/uL Normal 1.00-4.00 [facility] Lymphocytes/100 WBC (Bld) 15.3 % Normal [facility] MCH (RBC) [Entitic mass] 26.7 pG Normal 26.0-34.0 [facility] MCHC (RBC) [Mass/Vol] 32.1 g/dL Normal 30.5-36.0 [facility] MCV (RBC) [Entitic vol] 83.2 fL Normal 80.0-100.0 [facility] Monocytes/100 WBC (Bld) 8.5 % Normal [facility] Neutrophils/100 WBC (Bld) 73.8 % Normal [facility] NRBCs 0.0 /100 WBC Normal 0 [facility] Platelet mean volume (Bld) [Entitic vol] 11.2 fL Normal 9.0-12.7 [facility] Platelets (Bld) [#/Vol] 216 10*3/uL Normal 150-400 [facility] RBC (Bld) [#/Vol] 5.65 10*6/uL Normal 4.20-6.00 [facility] WBC (Bld) [#/Vol] 8.74 10*3/uL Normal 3.70-11.[address] [facility] [address] ABD/PEL W IVCONon 09-29-[address] ABD/PEL W IVCON * * *Final Report* * * DATE OF EXAM: May 23 2020 3:51PM [facility] ABD/PEL W IVCON / PROCEDURE REASON: Abd pain, unspecified * * * * Physician Interpretation * * * * EXAMINATION: CT ABDOMEN AND PELVIS WITH IV CONTRAST CLINICAL HISTORY: Abd pain, unspecified, Left scrotal pain, r/o hernia groin pain TECHNIQUE: Routine helical scanning of the abdomen and pelvis with IV contrast. Contrast: IV: 150 ml Omnipaque 300 Oral: None. CT Radiation dose: Integrated Dose-length product (DLP) for this visit = 1722 mGy*cm. CT Dose Reduction Employed: Automated exposure control. COMPARISON: None available. RESULT: Lower chest: Negative. Peritoneum/mesentery: There is no free intraperitoneal air or significant free fluid. Liver: Normal. Biliary: Normal. Spleen: Calcified granulomata. Pancreas: Normal. Kidneys/urinary: Normal. Adrenals: Normal. GI tract: Negative. No dilated bowel or inflammatory changes. Appendix is not visualized. Lymph nodes: Negative. Vasculature: Within normal limits. Pelvis: No mass or fluid collection. Bones/soft tissue: Unremarkable. Armature [employer] (topogram) images: No additional findings. IMPRESSION: No acute findings in the abdomen, pelvis and included lower chest. Incidental finding of multiple calcified granulomata in the spleen. Photocopying Equipment Mechanic: JAYJAY Transcribe Date/Time: May 23 2020 3:55P Dictated by : SHAWNA GREENFIELD MD This examination was interpreted and the report reviewed and electronically signed by: SHAWNA GREENFIELD MD on May 23 2020 4:03PM EST [id number] Normal [facility] Comp Metabolic Panelon 05-23 Albumin [Mass/Vol] 4.4 g/dL Normal 3.9-4.9 [facility] ALP [Catalytic activity/Vol] 153 U/L High 38-113 [facility] ALT [Catalytic activity/Vol] 59 U/L High 10-54 [facility] Anion gap [Moles/Vol] 10 mmol/L Normal 9-18 [facility] AST [Catalytic activity/Vol] 35 U/L Normal 14-40 [facility] Bilirubin [Mass/Vol] 0.2 mg/dL Normal 0.2-1.3 [facility] Calcium [Mass/Vol] 9.4 mg/dL Normal 8.5-10.2 [facility] Chloride [Moles/Vol] 97 mmol/L Normal 97-105 [facility] CO2 [Moles/Vol] 30 mmol/L Normal 22-30 [facility] Creatinine [Mass/Vol] 1.12 mg/dL Normal 0.73-1.22 [facility] eGFR- Amer. >60 Normal [facility] GFR/1.73 sq M predicted among non-blacks MDRD (S/P/Bld) [Vol rate/Area] mL/min/{1.73_m2} Normal [facility] Comment on above: Result Comment: eGFR (Estimated GFR) Units of measure: mL/min/1.73 meters squared eGFR is derived from the reexpressed MDRD Study equation using the following parameters: serum creatinine, age, gender and race. The creatinine assay has been calibrated to be traceable to IDMS. An eGFR <60 mL/min/1.73m2 for >3 months is consistent with chronic kidney disease. Refer to KDOQI guidelines for clinical interpretation. In patients with unstable renal function, e.g. those with acute kidney injury, the eGFR may not accurately reflect actual GFR. Glucose [Mass/Vol] 100 mg/dL High 74-99 [facility] Comment on above: Result Comment: The [place] Diabetes Association (ADA) provides guidance for cutoff values for fasting glucose and random glucose. The ADA defines fasting as no caloric intake for at least 8 hours. Fasting plasma glucose results between 100 to 125 mg/dL indicate increased risk for diabetes (prediabetes). Fasting plasma glucose results greater than or equal to 126 mg/dL meet the criteria for diagnosis of diabetes. In the absence of unequivocal hyperglycemia, results should be confirmed by repeat testing. In a patient with classic symptoms of hyperglycemia or hyperglycemic crisis, random plasma glucose results greater than or equal to 200 mg/dL meet the criteria for diagnosis of diabetes. Reference: Standards of Medical Care in Diabetes 2016, [place] [employer]. Diabetes Care. 2016.39(Suppl 1). Potassium [Moles/Vol] 4.4 mmol/L Normal 3.7-5.1 [facility] Protein [Mass/Vol] 7.7 g/dL Normal 6.3-8.0 [facility] Sodium [Moles/Vol] 137 mmol/L Normal 136-144 [facility] Urea nitrogen [Mass/Vol] 22 mg/dL Normal 9-24 [facility] ED NOTEon 05-23-2020 ED NOTE HNO ID: [id number] Author: Jose RamirezRn) MAURICIO Jay Service: ? Author Type: Registered Nurse Type: ED Notes Filed: 05/23/2020 4:26 PM Note Text: Discharge understood. Walked out with steady gait. [facility] ED NOTE HNO ID: [id number] Author: Jose RamirezRn) MAURICIO aJy Service: ? Author Type: Registered Nurse Type: ED Notes Filed: 05/23/2020 1:13 PM Note Text: Patient seen in ED with complaint of groin pain for past three weeks which had not gotten any better. Patient has not gotten relief from tylenol or aleve. Patient denies numbness and tingling. [facility] ED PROV NOTEon 05-23-2020 ED PROV NOTE HNO ID: [id number] Author: Malick Mejia Service: Emergency Medicine Author Type: Physician Type: ED Provider Notes Filed: 05/23/2020 5:19 PM Note Text: ED Provider Note Patient Name: Mannie Michel SERVICE DATE: 05/23/20 History Patient presents with: Groin Pain: left Mannie Michel is a 59 year old male who presents with groin pain. History per the patient Notable past history: diabetes Location: left Duration: 2 weeks Timing: constant Quality: sharp Severity: severe Context: heard pop 2 weeks ago getting off toilet Modifying factors: none Associated symptoms: Denies nausea, vomiting Having normal bowel movements Tolerating PO PAST MEDICAL HISTORY Diagnosis Date - Cyst of skin right forearm - Depression - Diabetes mellitus type 1 (HCC) 20+years - Hearing loss of left ear - Heart attack (HCC) 2005 - Hyperlipidemia - Hypertension - Neuropathy (HCC) - Vertigo PAST SURGICAL HISTORY Procedure Laterality Date - STENT PLACEMENT 2005 4 or 5 stents placed on each side of heart FAMILY HISTORY Problem Relation Age of Onset - Cataract Mother Social History Tobacco Use - Smoking status: Former Smoker Quit date: 05/12/2006 Years since quittin.0 Substance and Sexual Activity - Alcohol use: No Comment: QUIT 2006 - Drug use: No - Sexual activity: Not on file ALLERGIES Allergen Reactions - Codeine Mental Status Change Review of Systems Constitutional: Negative for chills and fever. HENT: Negative. Eyes: Negative. Respiratory: Negative for shortness of breath. Cardiovascular: Negative for chest pain. Gastrointestinal: Negative for abdominal pain, nausea and vomiting. Genitourinary: Positive for testicular pain. Musculoskeletal: Negative. Skin: Negative. Neurological: Negative. Psychiatric/Behavioral: Negative. Physical Exam BP 149/81 Pulse 73 Temp 98.2 Resp 16 Ht 5' 11 (1.80m) Wt 345 lb (156.5kg) SpO2 97% BMI 48.14 kg/(m2). O2 Therapy: Room Air Physical Exam Vitals signs and nursing note reviewed. Constitutional: General: He is not in acute distress. Appearance: Normal appearance. He is well-developed. He is obese. He is not ill-appearing, toxic-appearing or diaphoretic. HENT: Head: Normocephalic and atraumatic. Eyes: Pupils: Pupils are equal, round, and reactive to light. Neck: Musculoskeletal: Neck supple. Cardiovascular: Rate and Rhythm: Normal rate and regular rhythm. Pulses: Normal pulses. Heart sounds: Normal heart sounds. Pulmonary: Effort: Pulmonary effort is normal. No respiratory distress. Breath sounds: Normal breath sounds. Abdominal: General: There is no distension. Palpations: Abdomen is soft. Tenderness: There is no abdominal tenderness. There is no guarding. Genitourinary: Comments: Pt provided consent for exam. Normal external inspection with no lesions. No urethral discharge. Normal bilateral testicular lie and position. No scrotal discoloration. Left scrotal/testicular/epididy mal tenderness. No edema. Bilateral cremasteric reflex intact. No masses or hernias. Skin: General: Skin is warm and dry. Neurological: General: No focal deficit present. Mental Status: He is alert and oriented to person, place, and time. Psychiatric: Behavior: Behavior normal. Diagnostic Testing ED Labs Ordered and Reviewed URINALYSIS WITH MICROSCOPIC (AK,AV,EU,FV,HL,CAREY,MM,SP) - Abnormal; Notable for the following components: Result Value Ref Range Glucose, Urine 3+ (*) Negative mg/dL All other components within normal limits Procedures ED Course / Clinical Impression ED Course as of May 23 1717 Malick Mejia's Documentation e May 23, 2020 1347 URINALYSIS WITH MICROSCOPIC(!): Color Yellow Clarity Clear Glucose, Urine 3+(!) Bilirubin, Urine Negative Ketones, Urine Negative Specific [place], Ur 1.027 Hemoglobin/Blood,Ur Negative pH, Urine 5.5 Protein, Urine Negative Urobilinogen 0.2 Nitrites Negative Leukest Negative WBC, Urine 0-5 RBC, Urine 0-3 Cast SEE COMMENT 1433 US SCROTUM AND CONTENTS 1433 US DOPPLER COMPLETE 1549 CBC + AUTO DIFF: WBC 8.74 RBC 5.65 Hemoglobin 15.1 Hematocrit 47.0 MCV 83.2 MCH 26.7 MCHC 32.1 RDW-CV 14.5 Platelet Count 216 MPV 11.2 Neut% 73.8 Abs Neut (ANC) 6.45 Lymph% 15.3 Abs Lymph 1.34 Crittenden% 8.5 Abs [place] 0.74 Eosin% 2.1 Abs Eosin 0.18 Baso% 0.3 Abs Baso 0.03 Nucleated Reds 0.0 Absolute nRBC <0.01 Diff Type Auto Diff 1549 COMPREHENSIVE METABOLIC PANEL (BMP+LFT)(!): Protein, Total 7.7 Albumin 4.4 Calcium 9.4 Bilirubin, Total 0.2 Alkaline Phosphatase 153(!) AST 35 Glucose 100(!) BUN 22 Creatinine 1.12 Sodium 137 Potassium 4.4 Chloride 97 CO2 30 Anion Gap 10 ALT 59(!) eGFR- >60 eGFR-All Other Races >[address] ABD/PEL W IVCON Clinical Impressions as of May 23 1717 Left inguinal pain Varicocele MDM / Disposition / Plan 59 year old male presented with groin pain. On arrival the patient was well appearing, nontoxic and in no acute distress. Vitals stable. Diagnostic impression: varicocele vs groin strain. This impression was explained to the patient. Patient was updated with results of workup. Although not an exhaustive list of DDx, patient?s HPI, PE, and other findings are not suggestive of torsion, surgical abdomen, Fourniers gangrene. Re evaluation of patient in ED prior to discharge, pain/symptoms improved, patient ambulates in ED, tolerating PO, well appearing and stable for outpt management. The patient was educated by on signs and symptoms for which they should return to the ED immediately. Understands to return if condition changes/worsens or does not improve. Given both verbal and written discharge instructions. Other recommendations: tylenol/ibuprofen I also discussed the need for close follow up to PCP. The patient understands the importance of close follow up and that it is essential for good health and outcomes. The patient/family understands and agrees with plan of care. The patient was DISCHARGED: Counseled patient and family regarding lab results AND radiology results AND suspected diagnosis AND need for follow-up. Discharged home with verbal and written instructions. They were instructed to return as needed for persistent or worsening symptoms or any new concerns. Condition at time of disposition: stable SIGNATURE: Malick Mejia, DO Malick Mejia 05/23/20 1719 [facility] PROGRESSon 05-23-2020 PROGRESS HNO ID: [id number] Author: Kristal Singh (Rt) Service: Radiology Author Type: Elementary Tutor Type: Progress Notes Filed: 05/23/2020 3:43 PM Note Text: Radiology Service Progress Note PATIENT NAME: Mannie Michel DATE OF SERVICE: May 23, 2020 TIME: 3:30 PM PATIENT IDENTITY VERIFICATION COMPLETED USING TWO (2) IDENTIFIERS: Name and Date of confirmed by patient verbally. FALL SCREENING: Has the patient had 2 falls in the last year or 1 fall with injury or currently using an Ambulatory Assistive Device (Walker, Cane, Wheelchair, Crutches, etc.)? Emergency Room Patient: Screened in ED PATIENT GENDER DATA: Male PATIENT RELEVANT IMPLANT DATA REVIEWED: Not Applicable RADIOLOGY DEPARTMENT: CT; Exam(s) Completed: Abdomen/Pelvis PERIPHERAL IV DATA: Site assessment: Clean,Dry and Intact, Site disposition Left in for next appointment SIGNED BY: RT Arash May 23, 2020 3:30 PM [facility] PROGRESS HNO ID: [id number] Author: Marylou Rocha Service: ? Author Type: Certified Nurses Aide Type: Progress Notes Filed: 05/23/2020 1:54 PM Note Text: Radiology Service Progress Note PATIENT NAME: Mannie Michel DATE OF SERVICE: May 23, 2020 TIME: 1:54 PM PATIENT IDENTITY VERIFICATION COMPLETED USING TWO (2) IDENTIFIERS: Name and Date of confirmed by patient verbally. FALL SCREENING: Has the patient had 2 falls in the last year or 1 fall with injury or currently using an Ambulatory Assistive Device (Walker, Cane, Wheelchair, Crutches, etc.)? No PATIENT GENDER DATA: Male PATIENT RELEVANT IMPLANT DATA REVIEWED: Not Applicable RADIOLOGY DEPARTMENT: Ultrasound PERIPHERAL IV DATA: Not applicable SIGNED BY: Marylou Rocha RDMS May 23, 2020 1:54 PM [facility] US DOPPLER COMPLETEon 2019 US DOPPLER COMPLETE * * *Final Report* * * DATE OF EXAM: May 23 2020 1:59PM [facility] 1033 - US DOPPLER COMPLETE / PROCEDURE REASON: Scrotal pain, nontraumatic * * * * Physician Interpretation * * * * EXAMINATION: SCROTAL ULTRASOUND WITH DOPPLER IMAGING CLINICAL HISTORY: Scrotal pain, nontraumatic TECHNIQUE: Sonography of the scrotal contents with color flow and spectral Doppler imaging of the testicular vasculature was performed. Images were obtained and stored in a permanent archive. M: USC_2 COMPARISON: None RESULT: RIGHT SCROTUM: Right testis: 3.7 x 2.9 x 2.4 cm. Homogeneous with no calcifications or mass. Normal intratesticular arterial and venous flow with normal spectral waveforms. Epididymis: 4 x 5 mm right epididymal head cyst.. Vascular flow on Color Doppler is symmetric to the contralateral side. Hydrocele: small present Varicocele: absent LEFT SCROTUM: Left testis: 3.5 x 2.7 x 1.9 cm. Homogeneous with no calcifications or mass. Normal intratesticular arterial and venous flow with normal spectral waveforms. Ectasia of the rete testis noted. Epididymis: Normal. Vascular flow on Color Doppler is symmetric to the contralateral side. Hydrocele: small present Varicocele: present IMPRESSION: No evidence of testicular torsion, acute epididymoorchitis, or testicular mass. 5 mm right epididymal head cyst. 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 Photocopying Equipment Mechanic: [email or web address] Transcribe Date/Time: May 23 2020 2:06P Dictated by : KAYE PRESLEY MD This examination was interpreted and the report reviewed and electronically signed by: KAYE PRESLEY MD on May 23 2020 2:13PM EST [id number] [facility] US SCROTUM AND CONTENTSon US SCROTUM AND CONTENTS * * *Final Repor t* * * DATE OF EXAM: May 23 2020 1:59PM [facility] [id number] - US SCROTUM AND CONTENTS / PROCEDURE REASON: Scrotal pain, nontraumatic * * * * Physician Interpretation * * * * EXAMINATION: SCROTAL ULTRASOUND WITH DOPPLER IMAGING CLINICAL HISTORY: Scrotal pain, nontraumatic TECHNIQUE: Sonography of the scrotal contents with color flow and spectral Doppler imaging of the testicular vasculature was performed. Images were obtained and stored in a permanent archive. M: [id number] COMPARISON: None RESULT: RIGHT SCROTUM: Right testis: 3.7 x 2.9 x 2.4 cm. Homogeneous with no calcifications or mass. Normal intratesticular arterial and venous flow with normal spectral waveforms. Epididymis: 4 x 5 mm right epididymal head cyst.. Vascular flow on Color Doppler is symmetric to the contralateral side. Hydrocele: small present Varicocele: absent LEFT SCROTUM: Left testis: 3.5 x 2.7 x 1.9 cm. Homogeneous with no calcifications or mass. Normal intratesticular arterial and venous flow with normal spectral waveforms. Ectasia of the rete testis noted. Epididymis: Normal. Vascular flow on Color Doppler is symmetric to the contralateral side. Hydrocele: small present Varicocele: present IMPRESSION: No evidence of testicular torsion, acute epididymoorchitis, or testicular mass. 5 mm right epididymal head cyst. 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 Photocopying Equipment Mechanic: [facility] Transcribe Date/Time: May 23 2020 2:06P Dictated by : KAYE PRESLEY MD This examination was interpreted and the report reviewed and electronically signed by: KAYE PRESLEY MD on May 23 2020 2:13PM EST [id number] Normal [facility] Urinalysis with Microscopico n 05-23-2020 Bilirubin, Urine Negative Normal Negative [facility] Cast SEE COMMENT Normal 0 [facility] Comment on above: Result Comment: 0 Clarity (U) Clear Normal Clear [facility] Color (U) Yellow Normal Yellow [facility] Glucose Ql (U) 3+ mg/dL Critically abnormal Negative [facility] Hemoglobin/Blood,Ur Negative Normal Negative [facility] Ketones Ql (U) Negative Normal Negative [facility] Leukest Negative Normal Negative [facility] Nitrite Ql (U) Negative Normal Negative [facility] pH (Bld) 5.5 Normal 5.0-8.0 [facility] Protein (U) [Mass/Vol] Negative Normal Negative [facility] RBC (U) [#/Vol] 0-3 Normal 0-3 [facility] Specific [place], Ur 1.027 Normal 1.005-1 .03 0 [facility] Urobilinogen Qn (U) 0.2 E.U./dL Normal 0.2-1.0 [facility] WBC (Bld) [#/Vol] 0-5 Normal 0-5 [facility] AST (SGOT)on 08-27-2018 AST enzyme act/vol 51 U/L High 13-39 [facility] Comment on above: Performed By: #### 1 [id number] ####[facility] [id number] [facility] [place] [address] Lipid Panelon 08-27-2018 Cholesterol in HDL mass conc 36 mg/dL Abnormal [facility] Comment on above: Result Comment: Norm al Mod Risk High Risk5-9 >48 42-48 <4210-14 >45 40-45 <4015-19 >38 34-38 <34Adult >39 Performed By: #### 1 [id number] ####[facility] [address] [facility] [place] [address] Cholesterol in LDL mass conc 48 mg/dL Normal <130 [facility] Comment on above: Performed By: #### 1 [id number] ####[facility] [address] [facility] [place] [address] Cholesterol in VLDL mass conc 27 mg/dL Normal <30 [facility] Comment on above: Performed By: #### 1 [id number] ####[facility] [address] [facility] [place] [address] Cholesterol mass conc 111 mg/dL Normal <200 [facility] Comment on above: Performed By: #### 1 [id number] ####[facility] [address] [place] [address] Cholesterol.total/Lois sterol in HDL mass ratio 3.1 {ratio} Normal [facility] Comment on above: Performed By: #### 1 [id number] ####[facility] [address] [place] [address] Triglyceride mass conc 134 mg/dL Normal <150 [facility] Comment on above: Result Comment: 150- 199 Borderline Oobt182-317 High>500 Very High Performed By: #### 1 [id number] ####[facility] [address] [place] [address] Vital Signs Date Time Vital Sign Value Performing Clinician Facility 06-18-2024 15:41-0400 Body mass index (BMI) [Ratio] 37.07 kg/m2 [employer] [facility] 06-18-2024 15:41-0400 Body temperature 97.11 [degF] Harvey [employer] DO [facility] 06-18-2024 15:41-0400 Body weight 120.57 kg Harvey [employer] [facility] 06-18-2024 15:41-0400 Diastolic blood pressure 72 mm[Hg] [employer] DO [facility] 06-18-2024 15:41-0400 Heart rate 74 /min [employer] DO [facility] 06-18-2024 15:41-0400 SaO2% (BldA) [Mass fraction] 97 % Harvey [employer] DO [facility] 06-18-2024 15:41-0400 Systolic blood pressure 132 mm[Hg] [employer] DO [facility] 05-11-2024 18:51-0400 Body mass index (BMI) [Ratio] 35.45 kg/m2 [employer] DO [facility] 05-11-2024 18:51-0400 Body temperature 97.11 [degF] Harvey [employer] DO [facility] 05-11-2024 18:51-0400 Body weight 115.3 kg [employer] DO [facility] 05-11-2024 18:51-0400 Diastolic blood pressure 76 mm[Hg] Harvey Furlong DO [facility] 05-11-2024 18:51-0400 Heart rate 82 /min Harvey Furlong DO [facility] 05-11-2024 18:51-0400 Respiratory rate 18 /min Harvey Furlong DO [facility] 05-11-2024 18:51-0400 SaO2% (BldA) [Mass fraction] 96 % Harvey Furlong DO [facility] 05-11-2024 18:51-0400 Systolic blood pressure 129 mm[Hg] Harvey Furlong DO Work Phone: [facility] 04-09-2024 07:30-0400 Body temperature 97.7 [degF] [facility] Work Phone: [facility] 04-09-2024 07:30-0400 Diastolic blood pressure 85 mm[Hg] [facility] Work Phone: [facility] 04-09-2024 07:30-0400 Heart rate 84 /min [facility] Work Phone: [facility] 04-09-2024 07:30-0400 Respiratory rate 16 /min [facility] Work Phone: [facility] 04-09-2024 07:30-0400 SaO2% (BldA) [Mass fraction] 99 % [facility] Work Phone: [facility] 04-09-2024 07:30-0400 Systolic blood pressure 125 mm[Hg] [facility] Work Phone: [facility] 04-08-2024 09:40-0400 Body height 180.34 cm [facility] Work Phone: [facility] 04-05-2024 09:00-0400 Body weight 112.76 kg [facility] Work Phone: [facility] 03-31-2024 12:56-0400 Body height 180.34 cm [facility] Work Phone: [facility] 03-31-2024 12:56-0400 Body temperature 98.1 [degF] [facility] Work Phone: [facility] 03-31-2024 12:56-0400 Body weight 118.5 kg [facility] Work Phone: [facility] 03-31-2024 12:56-0400 Diastolic blood pressure 61 mm[Hg] [facility] Work Phone: [facility] 03-31-2024 12:56-0400 Heart rate 72 /min [facility] Work Phone: [facility] 03-31-2024 12:56-0400 Respiratory rate 16 /min [facility] Work Phone: [facility] 03-31-2024 12:56-0400 SaO2% (BldA) [Mass fraction] 96 % [facility] Work Phone: [facility] 03-31-2024 12:56-0400 Systolic blood pressure 116 mm[Hg] [facility] Work Phone: [facility] 03-29-2024 16:00-0400 Body temperature 97.6 [degF] [facility] Work Phone: [facility] 03-29-2024 16:00-0400 Diastolic blood pressure 74 mm[Hg] [facility] Work Phone: [facility] 03-29-2024 16:00-0400 Heart rate 62 /min [facility] Work Phone: [facility] 03-29-2024 16:00-0400 Respiratory rate 16 /min [facility] Work Phone: [facility] 03-29-2024 16:00-0400 SaO2% (BldA) [Mass fraction] 100 % [facility] Work Phone: [facility] 03-29-2024 16:00-0400 Systolic blood pressure 106 mm[Hg] [facility] Work Phone: [facility] 03-29-2024 06:00-0400 Body weight 114.1 kg [facility] Work Phone: [facility] 03-27-2024 23:56-0400 Body height 180.34 cm [facility] Work Phone: [facility] 03-27-2024 15:30-0400 Body temperature 97.7 [degF] [facility] Work Phone: [facility] 03-27-2024 15:30-0400 Diastolic blood pressure 75 mm[Hg] [facility] Work Phone: [facility] 03-27-2024 15:30-0400 Heart rate 72 /min [facility] Work Phone: [facility] 03-27-2024 15:30-0400 Respiratory rate 18 /min [facility] Work Phone: [facility] 03-27-2024 15:30-0400 SaO2% (BldA) [Mass fraction] 97 % [facility] Work Phone: [facility] 03-27-2024 15:30-0400 Systolic blood pressure 108 mm[Hg] [facility] Work Phone: [facility] 03-24-2024 14:39-0400 Body height 180.34 cm [facility] Work [facility]: [facility] 03-24-2024 11:30-0400 Body weight 106.68 kg [facility] Work Phone: [facility] 03-24-2024 10:21-0400 Body temperature 98 [degF] [facility] Work Phone: [facility] 03-24-2024 09:21-0400 Diastolic blood pressure 68 mm[Hg] [facility] Work Phone: [facility] 03-24-2024 09:21-0400 Heart rate 79 /min [facility] Work Phone: [facility] 03-24-2024 09:21-0400 Respiratory rate 18 /min [facility] Work Phone: [facility] 03-24-2024 09:21-0400 SaO2% (BldA) [Mass fraction] 96 % [facility] Work Phone: [facility] 03-24-2024 09:21-0400 Systolic blood pressure 103 mm[Hg] [facility] Work Phone: [facility] 03-24-2024 01:15-0400 Body height 180.34 cm [facility] Work Phone: [facility] 03-24-2024 01:15-0400 Body weight 109.3 kg [facility] Work Phone: [facility] 02-24-2024 00:02-0400 Diastolic blood pressure 61 mm[Hg] [facility] Work Phone: [facility] 02-24-2024 00:02-0400 Heart rate 82 /min [facility] Work Phone: [facility] 02-24-2024 00:02-0400 Respiratory rate 16 /min [facility] Work Phone: [facility] 02-24-2024 00:02-0400 SaO2% (BldA) [Mass fraction] 95 % [facility] Work Phone: [facility] 02-24-2024 00:02-0400 Systolic blood pressure 109 mm[Hg] [facility] Work Phone: [facility] 02-23-2024 20:07-0400 Body temperature 98.6 [degF] [facility] Work [facility]: [facility] 02-23-2024 20:06-0400 Body height 180.34 cm [facility] Work Phone: [facility] 02-23-2024 20:06-0400 Body weight 119.2 kg [facility] Work Phone: [facility] 02-05-2024 22:09-0400 Diastolic blood pressure 68 mm[Hg] [facility] Work Phone: [facility] 02-05-2024 22:09-0400 Heart rate 80 /min [facility] Work Phone: [facility] 02-05-2024 22:09-0400 Respiratory rate 18 /min [facility] Work Phone: [facility] 02-05-2024 22:09-0400 SaO2% (BldA) [Mass fraction] 99 % [facility] Work Phone: [facility] 02-05-2024 22:09-0400 Systolic blood pressure 135 mm[Hg] [facility] Work Phone: [facility] 02-05-2024 17:32-0400 Body height 180.34 cm [facility] Work Phone: [facility] 02-05-2024 17:32-0400 Body temperature 98.2 [degF] [facility] Work Phone: [facility] 02-05-2024 17:32-0400 Body weight 108.86 kg [facility] Work Phone: [facility] 01-05-2024 12:00-0400 Body temperature 98 [degF] MD Eneida Ratliff Work Phone: [facility] 01-05-2024 12:00-0400 Diastolic blood pressure 93 mm[Hg] MD Eneida Ratliff Work Phone: [facility] 01-05-2024 12:00-0400 Heart rate 84 /min MD Eneida Ratliff Work Phone: [facility] 01-05-2024 12:00-0400 Respiratory rate 16 /min MD Eneida Ratliff Work Phone: [facility] 01-05-2024 12:00-0400 SaO2% (BldA) [Mass fraction] 97 % MD Eneida Ratliff Work Phone: [facility] 01-05-2024 12:00-0400 Systolic blood pressure 156 mm[Hg] MD Eneida Ratliff Work Phone: [facility] 01-05-2024 06:00-0400 Body height 180.34 cm MD Eneida Ratliff Work Phone: [facility] 01-05-2024 06:00-0400 Body weight 109 kg MD Eneida Ratliff Work Phone: [facility] 01-05-2024 04:30-0400 Diastolic blood pressure 66 mm[Hg] MD Eneida Ratliff Work Phone: [facility] 01-05-2024 04:30-0400 Heart rate 74 /min MD Eneida Ratliff Work Phone: [facility] 01-05-2024 04:30-0400 Respiratory rate 18 /min MD Eneida Ratliff Work Phone: [facility] 01-05-2024 04:30-0400 SaO2% (BldA) [Mass fraction] 96 % MD Eneida Ratliff Work Phone: [facility] 01-05-2024 04:30-0400 Systolic blood pressure 119 mm[Hg] MD Eneida Ratliff Work Phone: [facility] 01-05-2024 01:35-0400 Body temperature 97.8 [degF] MD Eneida Ratliff Work Phone: [facility] 01-05-2024 01:34-0400 Body height 180.34 cm MD Eneida Ratliff Work Phone: [facility] 01-05-2024 01:34-0400 Body weight 108.86 kg MD Eneida Ratliff Work Phone: [facility] 12-27-2023 03:56-0400 Heart rate 70 /min MD Eneida Ratliff Work Phone: [facility] 12-27-2023 03:56-0400 Respiratory rate 18 /min MD Eneida Ratliff Work Phone: [facility] 12-27-2023 03:56-0400 SaO2% (BldA) [Mass fraction] 98 % MD Eneida Ratliff Work Phone: [facility] 12-27-2023 00:23-0400 Body temperature 97.9 [degF] MD Eneida Ratliff Work Phone: [facility] 12-27-2023 00:23-0400 Diastolic blood pressure 75 mm[Hg] MD Eneida Ratliff Work Phone: [facility] 12-27-2023 00:23-0400 Systolic blood pressure 134 mm[Hg] MD Eneida Ratliff Work Phone: [facility] 12-26-2023 21:33-0400 Body height 180.34 cm MD Eneida Ratliff Work Phone: [facility] 12-26-2023 21:33-0400 Body weight 113.39 kg MD Eneida Ratliff Work Phone: [facility] 12-15-2023 09:00-0400 Body weight 113.62 kg [facility] Work Phone: [facility] 12-15-2023 07:30-0400 Body temperature 98.2 [degF] [facility] Work Phone: [facility] 12-15-2023 07:30-0400 Diastolic blood pressure 95 mm[Hg] [facility] Work Phone: [facility] 12-15-2023 07:30-0400 Heart rate 89 /min [facility] Work Phone: [facility] 12-15-2023 07:30-0400 Respiratory rate 16 /min [facility] Work Phone: [facility] 12-15-2023 07:30-0400 SaO2% (BldA) [Mass fraction] 97 % [facility] Work Phone: [facility] 12-15-2023 07:30-0400 Systolic blood pressure 145 mm[Hg] [facility] Work Phone: [facility] 12-12-2023 14:59-0400 Body height 180.34 cm [facility] Work Phone: [facility] 12-11-2023 15:30-0400 Body temperature 98.5 [degF] [facility] Work Phone: [facility] 12-11-2023 15:30-0400 Diastolic blood pressure 73 mm[Hg] [facility] Work Phone: [facility] 12-11-2023 15:30-0400 Heart rate 91 /min [facility] Work Phone: [facility] 12-11-2023 15:30-0400 Respiratory rate 15 /min [facility] Work Phone: [facility] 12-11-2023 15:30-0400 SaO2% (BldA) [Mass fraction] 96 % [facility] Work Phone: [facility] 12-11-2023 15:30-0400 Systolic blood pressure 111 mm[Hg] [facility] Work Phone: [facility] 12-11-2023 14:00-0400 Diastolic blood pressure 52 mm[Hg] [facility] Work Phone: [facility] 12-11-2023 14:00-0400 Heart rate 77 /min [facility] Work Phone: [facility] 12-11-2023 14:00-0400 Respiratory rate 17 /min [facility] Work Phone: [facility] 12-11-2023 14:00-0400 SaO2% (BldA) [Mass fraction] 99 % [facility] Work Phone: [facility] 12-11-2023 14:00-0400 Systolic blood pressure 106 mm[Hg] [facility] Work Phone: [facility] 12-11-2023 01:59-0400 Body height 180.34 cm [facility] Work Phone: [facility] 12-11-2023 01:59-0400 Body temperature 97.8 [degF] [facility] Work Phone: [facility] 12-11-2023 01:59-0400 Body weight 115 kg [facility] Work Phone: [facility] 09-27-2023 12:54-0500 Diastolic blood pressure 70 mm[Hg] [facility] Work Phone: [facility] 09-27-2023 12:54-0500 Heart rate 82 /min [facility] Work Phone: [facility] 09-27-2023 12:54-0500 Respiratory rate 20 /min [facility] Work Phone: [facility] 09-27-2023 12:54-0500 SaO2% (BldA) [Mass fraction] 94 % [facility] Work Phone: [facility] 09-27-2023 12:54-0500 Systolic blood pressure 117 mm[Hg] [facility] Work Phone: [facility] 09-27-2023 10:43-0500 Body height 180.34 cm [facility] Work Phone: [facility] 09-27-2023 10:43-0500 Body temperature 97.4 [degF] [facility] Work Phone: [facility] 09-27-2023 10:43-0500 Body weight 108.6 kg [facility] Work Phone: [facility] 05-04-2023 14:18-0400 Body height 180.34 cm [facility] Work Phone: [facility] 05-04-2023 14:18-0400 Body temperature 97.3 [degF] [facility] Work Phone: [facility] 05-04-2023 14:18-0400 Body weight 118.38 kg [facility] Work Phone: [facility] 05-04-2023 14:18-0400 Diastolic blood pressure 90 mm[Hg] [facility] Work Phone: [facility] 05-04-2023 14:18-0400 Heart rate 88 /min [facility] Work Phone: [facility] 05-04-2023 14:18-0400 Respiratory rate 18 /min [facility] Work Phone: [facility] 05-04-2023 14:18-0400 SaO2% (BldA) [Mass fraction] 98 % [facility] Work Phone: [facility] 05-04-2023 14:18-0400 Systolic blood pressure 153 mm[Hg] [facility] Work Phone: [facility] 04-28-2023 10:45-0400 Body height 180.3 cm Gt Abreu MD Work Phone: [facility] 04-28-2023 10:45-0400 Body weight 118.39 kg Gt Abreu MD Work Phone: [facility] 04-12-2023 16:12-0400 Diastolic blood pressure 76 mm[Hg] [facility] Work Phone: [facility] 04-12-2023 16:12-0400 Heart rate 88 /min [facility] Work Phone: [facility] 04-12-2023 16:12-0400 Respiratory rate 18 /min [facility] Work Phone: [facility] 04-12-2023 16:12-0400 SaO2% (BldA) [Mass fraction] 92 % [facility] Work Phone: [facility] 04-12-2023 16:12-0400 Systolic blood pressure 106 mm[Hg] [facility] Work Phone: [facility] 04-12-2023 15:19-0400 Body height 180.34 cm [facility] Work Phone: [facility] 04-12-2023 15:19-0400 Body temperature 98 [degF] [facility] Work Phone: [facility] 04-12-2023 15:19-0400 Body weight 116.8 kg [facility] Work Phone: [facility] 04-10-2023 12:37-0400 Blood Pressure Location Kaela Rosa [facility] 04-10-2023 12:37-0400 Body temperature 96.98 [degF] Kaela Rosa [facility] 04-10-2023 12:37-0400 Diastolic blood pressure 70 mm[Hg] Kaela Rosa [facility] 04-10-2023 12:37-0400 Heart rate 104 /min Kaela Rosa [facility] 04-10-2023 12:37-0400 Systolic blood pressure 104 mm[Hg] Kaela Rosa [facility] 03-30-2023 15:59-0400 Diastolic blood pressure 84 mm[Hg] DO Ambrocio Jane Work Phone: [facility] 03-30-2023 15:59-0400 Heart rate 70 /min DO Ambrocio Jane Work Phone: [facility] [facility] 03-30-2023 15:59-0400 Respiratory rate 16 /min DO Ambrocio Jane Work Phone: [facility] 03-30-2023 15:59-0400 SaO2% (BldA) [Mass fraction] 97 % DO Ambrocio Jane Work Phone: [facility] 03-30-2023 15:59-0400 Systolic blood pressure 128 mm[Hg] DO Ambrocio Jane Work Phone: [facility] 03-30-2023 07:40-0400 Body temperature 97.7 [degF] DO Ambrocio Jane Work Phone: [facility] 03-30-2023 04:43-0400 Body weight 119.6 kg DO Ambrocio Jane Work Phone: [facility] 03-27-2023 16:17-0400 Body height 180.34 cm DO Ambrocio Jane Work Phone: [facility] 03-26-2023 10:27-0400 Diastolic blood pressure 84 mm[Hg] DO Ambrocio Jane Work Phone: [facility] 03-26-2023 10:27-0400 Heart rate 114 /min DO Ambrocio Jane Work Phone: [facility] 03-26-2023 10:27-0400 Respiratory rate 16 /min DO Ambrocio Jane Work Phone: [facility] 03-26-2023 10:27-0400 SaO2% (BldA) [Mass fraction] 98 % DO Ambrocio Jane Work Phone: [facility] 03-26-2023 10:27-0400 Systolic blood pressure 144 mm[Hg] DO Ambrocio Jane Work Phone: [facility] 03-26-2023 08:53-0400 Body height 180.34 cm DO Ambrocio Jane Work Phone: [facility] 03-26-2023 08:53-0400 Body temperature 97.3 [degF] DO Ambrocio Jane Work Phone: [facility] 03-26-2023 08:53-0400 Body weight 117 kg DO Ambrocio Jane Work Phone: [facility] 03-21-2023 20:09-0400 Diastolic blood pressure 91 mm[Hg] DO Ambrocio Jane Work Phone: [facility] 03-21-2023 20:09-0400 Heart rate 80 /min DO Ambrocio Jane Work Phone: [facility] 03-21-2023 20:09-0400 SaO2% (BldA) [Mass fraction] 99 % DO Ambrocio Jane Work Phone: [facility] 03-21-2023 20:09-0400 Systolic blood pressure 144 mm[Hg] DO Ambrocio Jane Work Phone: [facility] 03-21-2023 17:57-0400 Body height 180.34 cm DO Ambrocio Jane Work Phone: [facility] 03-21-2023 17:57-0400 Body weight 120.4 kg DO Ambrocio Jane Work Phone: [facility] 03-21-2023 17:52-0400 Body temperature 97.3 [degF] DO Ambrocio Jane Work Phone: [facility] 03-21-2023 17:52-0400 Respiratory rate 18 /min DO Ambrocio Jane Work Phone: [facility] 02-14-2023 14:19-0400 Body height 180.34 cm Janki M Kajal Work Phone: [facility] [facility] DO Work Phone: 02-14-2023 14:19-0400 Body mass index (BMI) [Ratio] 38.77 kg/m2 Janki M Kajal Work Phone: [facility] [facility] DO Work Phone: 02-14-2023 14:19-0400 Body surface area Derived from formula 2.43 m2 Janki M Kajal Work Phone: [facility] [facility] DO Work Phone: 02-14-2023 14:19-0400 Body weight 126.1 kg Janki M Kajal Work Phone: [facility] [facility] DO Work Phone: 02-14-2023 14:19-0400 Diastolic blood pressure 68 mm[Hg] Janki M Kajal Work Phone: [facility] [facility] DO Work Phone: 02-14-2023 14:19-0400 Heart rate 60 /min Janki M Kajal Work Phone: [facility] [facility] DO Work Phone: 02-14-2023 14:19-0400 Systolic blood pressure 110 mm[Hg] Janki M Kajal Work Phone: [facility] [facility] DO Work Phone: 01-10-2023 12:04-0400 Heart rate 87 /min DO Ambrocio Jane Work Phone: [facility] 01-10-2023 11:56-0400 Body height 177.8 cm DO Ambrocio Jane Work Phone: [facility] 01-10-2023 11:56-0400 Body temperature 96.7 [degF] DO Ambrocio Jane Work Phone: [facility] 01-10-2023 11:56-0400 Body weight 132.3 kg DO Ambrocio Jane Work Phone: [facility] 01-10-2023 11:56-0400 Diastolic blood pressure 75 mm[Hg] DO Ambrocio Jane Work Phone: [facility] 01-10-2023 11:56-0400 Respiratory rate 18 /min DO Ambrocio Jane Work Phone: [facility] 01-10-2023 11:56-0400 SaO2% (BldA) [Mass fraction] 98 % DO Ambrocio Jane Work Phone: [facility] 01-10-2023 11:56-0400 Systolic blood pressure 129 mm[Hg] DO Ambrocio Jane Work Phone: [facility] 12-28-2022 20:50-0400 Diastolic blood pressure 78 mm[Hg] DO Wiley Tupa Work Phone: [facility] 12-28-2022 20:50-0400 Heart rate 86 /min DO Wiley Tupa Work Phone: [facility] 12-28-2022 20:50-0400 Respiratory rate 20 /min DO Wiley Tupa Work Phone: [facility] 12-28-2022 20:50-0400 SaO2% (BldA) [Mass fraction] 98 % DO Wiley Tupa Work Phone: [facility] 12-28-2022 20:50-0400 Systolic blood pressure 126 mm[Hg] DO Wiley Tupa Work Phone: [facility] 12-28-2022 19:01-0400 Body height 177.8 cm DO Wiley Tupa Work Phone: [facility] 12-28-2022 19:01-0400 Body temperature 98.8 [degF] DO Wiley Tupa Work Phone: [facility] 12-28-2022 19:01-0400 Body weight 127 kg DO Wiley Tupa Work Phone: [facility] 12-12-2022 13:11-0400 Blood Pressure Location Haq SALAM [facility] 12-12-2022 13:11-0400 Diastolic blood pressure 75 mm[Hg] Haq SALAM [facility] 12-12-2022 13:11-0400 Heart rate 83 /min Haq SALAM [facility] 12-12-2022 13:11-0400 Respiratory rate 16 /min Haq SALAM [facility] 12-12-2022 13:11-0400 SaO2% (BldA) [Mass fraction] 96 % Haq SALAM [facility] 12-12-2022 13:11-0400 Systolic blood pressure 112 mm[Hg] Haq SALAM [facility] 11-20-2022 16:16-0400 Heart rate 65 /min DO Wiley Tupa Work Phone: [facility] 11-20-2022 16:16-0400 Respiratory rate 18 /min DO Wiley Tupa Work Phone: [facility] 11-20-2022 16:16-0400 SaO2% (BldA) [Mass fraction] 100 % DO Wiley Tupa Work Phone: [facility] 11-20-2022 15:55-0400 Body temperature 97.1 [degF] DO Wiley Adrianpa Work Phone: [facility] 11-20-2022 15:55-0400 Diastolic blood pressure 79 mm[Hg] DO Wiley Adrianpa Work Phone: [facility] 11-20-2022 15:55-0400 Systolic blood pressure 135 mm[Hg] DO Wiley Adrianpa Work Phone: [facility] 11-20-2022 15:54-0400 Body height 182.88 cm DO Wiley Tupa Work Phone: [facility] 11-20-2022 15:54-0400 Body weight 138.3 kg DO Wiley Tupa Work Phone: [facility] 07-24-2022 15:35-0500 Body height 180.34 cm Janki Gamezes Work Phone: [facility] [facility] DO Work Phone: 07-24-2022 15:35-0500 Body mass index (BMI) [Ratio] 42.12 kg/m2 Janki Garnergles Work Phone: [facility] [facility] DO Work Phone: 07-24-2022 15:35-0500 Body surface area Derived from formula 2.51 m2 Janki Garnergles Work Phone: [facility] [facility] DO Work Phone: 07-24-2022 15:35-0500 Body weight 136.99 kg Janki Garnergles Work Phone: [facility] [facility] DO Work Phone: 07-24-2022 15:35-0500 Diastolic blood pressure 72 mm[Hg] Janki Garnergles Work Phone: [facility] [facility] DO Work Phone: 07-24-2022 15:35-0500 Heart rate 82 /min Janki Garnergles Work Phone: [facility] [facility] DO Work Phone: 07-24-2022 15:35-0500 Systolic blood pressure 116 mm[Hg] Janki Garnergles Work Phone: [facility] [facility] DO Work Phone: 06-25-2022 12:00-0400 Diastolic blood pressure 80 mm[Hg] MD Gt Galindo Work Phone: [facility] 06-25-2022 12:00-0400 Heart rate 84 /min MD Gt Galindo Work Phone: [facility] 06-25-2022 12:00-0400 Respiratory rate 18 /min MD Gt Galindo Work Phone: [facility] 06-25-2022 12:00-0400 SaO2% (BldA) [Mass fraction] 95 % MD Gt Galindo Work Phone: [facility] 06-25-2022 12:00-0400 Systolic blood pressure 115 mm[Hg] MD Gt Galindo Work Phone: [facility] 06-25-2022 08:00-0400 Body temperature 97.9 [degF] MD Gt Galindo Work Phone: [facility] 06-25-2022 05:48-0400 Body weight 136.4 kg MD Gt Galindo Work Phone: [facility] 06-21-2022 18:50-0400 Body height 182.88 cm MD Gt Galindo Work Phone: [facility] 06-21-2022 18:50-0400 Body height 185.42 cm MD Gt Galindo Work Phone: [facility] 06-21-2022 18:50-0400 Body temperature 98.8 [degF] MD Gt Galindo Work Phone: [facility] 06-21-2022 18:50-0400 Body weight 134 kg MD Gt Galindo Work Phone: [facility] 06-21-2022 18:50-0400 Diastolic blood pressure 84 mm[Hg] MD Gt Galindo Work Phone: [facility] 06-21-2022 18:50-0400 Heart rate 91 /min MD Gt Galindo Work Phone: [facility] 06-21-2022 18:50-0400 Respiratory rate 18 /min MD Gt Galindo Work Phone: [facility] 06-21-2022 18:50-0400 SaO2% (BldA) [Mass fraction] 95 % MD Gt Galindo Work Phone: [facility] 06-21-2022 18:50-0400 Systolic blood pressure 125 mm[Hg] MD Gt Galindo Work Phone: [facility] 01-09-2022 10:20-0400 Diastolic blood pressure 82 mm[Hg] Haq SALAM [facility] 01-09-2022 10:20-0400 Heart rate 88 /min Haq SALAM [facility] 01-09-2022 10:20-0400 Systolic blood pressure 126 mm[Hg] Haq SALAM [facility] 01-08-2022 11:47-0400 Body height 180.34 cm Janki M Kajal Work Phone: [facility] [facility] DO Work Phone: 01-08-2022 11:47-0400 Body mass index (BMI) [Ratio] 43.52 kg/m2 Janki M Kajal Work Phone: [facility] [facility] DO Work Phone: 01-08-2022 11:47-0400 Body surface area Derived from formula 2.55 m2 Janki M Kajal Work Phone: [facility] [facility] DO Work Phone: 01-08-2022 11:47-0400 Body weight 141.52 kg Janki M Kajal Work Phone: [facility] [facility] DO Work Phone: 01-08-2022 11:47-0400 Diastolic blood pressure 70 mm[Hg] Janki M Kajal Work Phone: [facility] [facility] DO Work Phone: 01-08-2022 11:47-0400 Heart rate 88 /min Janki M Kajal Work Phone: [facility] [facility] DO Work Phone: 01-08-2022 11:47-0400 Systolic blood pressure 90 mm[Hg] Janki M Kajal Work Phone: [facility] [facility] DO Work Phone: 09-12-2021 10:00-0500 62 1 Janki M Kajal Work Phone: [facility] Work Phone: Comment on above: [id number] Encounters Encounter Date Encounter Type Care Provider Facility Start: 06-19-2024 End: 06-19-2024 Telephone encounter Leslie Flavia ANGIOGRAPHER [facility] Comment on above: Blood Sugar Problem; Seizures Start: 06-18-2024 End: 06-18-2024 Continuing Care Harvey Barros DO Work Phone: [facility] Comment on above: Type 2 diabetes orlin itus without complication, with long-term current use of insulin (CMS-HCC) (Primary Dx); Left knee pain, unspecified chronicity; Unspecified dementia, unspecified severity, with other behavioral disturbance (CMS-HCC); Generalized anxiety disorder Start: 05-11-2024 End: 06-14-2024 ambulatory Harvey Sb Anguianoerynamrit COBB [facility] Comment on above: Right knee pain, uns pecified chronicity (Primary Dx); Unspecified dementia, unspecified severity, with other behavioral disturbance (CMS-HCC) Start: 04-01-2024 [facility] Work Phone: [facility] Work Phone: Start: 03-31-2024 End: 04-09-2024 Evaluation and management of inpatient [place] [employer] Work Phone: [facility] Work Phone: Start: 03-31-2024 End: 04-09-2024 [place] [employer] Work Phone: [facility] Work Phone: Start: 03-28-2024 [place] [employer] Work Phone: [facility] Work Phone: Start: 03-27-2024 End: 03-29-2024 ambulatory Rory Corley Facility:[facility] Start: 03-27-2024 End: 03-29-2024 [facility] Work Phone: [facility] [place] [facility] Work Phone: Start: 03-25-2024 Non-patient / Non-visit [facility] Work Phone: [facility] Work Phone: Start: 03-25-2024 [facility] Work Phone[facility] Work Phone: Start: 03-24-2024 End: 03-27-2024 [facility] Work Phone: [facility] [place] Work Phone: Start: 03-24-2024 End: 03-27-2024 Evaluation and management of inpatient [facility] Work Phone: [facility] Work Phone: Start: 03-24-2024 ambulatory Nigel Templeton acility:[facility] Start: 02-23-2024 End: 02-24-2024 Emergency department patient visit [facility] Work Phone: [facility]-Emergency [facility] Work Phone: Start: 02-23-2024 End: 02-24-2024 [facility] Work Phone: [facility] Work Phone: Start: 02-05-2024 End: 02-05-2024 Emergency department patient visit [facility] Work Phone: [facility] Work Phone: Start: 02-05-2024 End: 02-05-2024 [facility] Work Phone: [facility] Work Phone: Start: 01-05-2024 End: 01-05-2024 ambulatory Hayder Motaner Facility:[facility] Start: 01-05-2024 End: 01-05-2024 Evaluation and management of inpatient MD Eneida Ratliff Work Phone: [facility] [place] [facility] Work Phone: Start: 01-05-2024 End: 01-05-2024 observation encounter MD Eneida Ratliff Work Phone: [facility] Work Phone: Start: 01-05-2024 End: 01-05-2024 [facility] Work Phone: [facility] [place] [facility] Work Phone: Start: 12-26-2023 End: 12-27-2023 Emergency department patient visit MD Eneida Ratliff Work Phone: [facility]-Emergency [facility] Work Phone: Start: 12-13-2023 End: 12-15-2023 Non-patient / Non-visit [facility] Work Phone: [facility] Work Phone: Start: 12-11-2023 End: 12-15-2023 Evaluation and management of inpatient [facility] Work Phone: [facility] Work Phone: Start: 12-10-2023 End: 12-11-2023 Non-patient / Non-visit [facility] Work Phone: [facility] Work Phone: Start: 12-10-2023 End: 12-11-2023 ambulatory [facility] Facility:[facility] Start: 12-10-2023 End: 12-11-2023 Evaluation and management of inpatient [facility] Work Phone: [facility] Work Phone: Start: 12-10-2023 End: 12-11-2023 observation encounter [facility] Work Phone: [facility] Work Phone: Start: 12-10-2023 Registered Recurring Jonna [facility] Work Phone: [facility] Start: 10-23-2023 End: 10-24-2023 ambulatory [facility] Start: 09-27-2023 End: 09-27-2023 Emergency department patient [facility] Work Phone: [facility]-Emergency [facility] Work Phone: Start: 07-10-2023 End: 07-11-2023 ambulatory LANA IRIS Facility:[facility] Start: 05-04-2023 End: 05-04-2023 Emergency department patient visit [facility] Work Phone: [facility] Work Phone: Start: 04-25-2023 End: 04-25-2023 ambulatory GT ABREU Facility:[facility] Start: 04-25-2023 End: 04-25-2023 Patient encounter procedure Gt Abreu MD Work Phone: Orthopaedics Comment on above: Primary osteoarthrit is of both knees (Primary Dx); Morbid obesity due to excess calories (HCC) Start: 04-25-2023 End: 04-25-2023 Subsequent hospital visit by physician Andre Abreu 1 Work Phone: Radiology Comment on above: Pain [R52] Start: 04-12-2023 End: 04-12-2023 Emergency department patient visit [facility] Work Phone: [facility] Work Phone: Start: 04-10-2023 End: 04-11-2023 ambulatory Kaealrichard Rosa Facility:[facility] Start: 04-10-2023 End: 06-12-2023 Pre-admission assessment Jaren Hernandez [facility] Start: 04-10-2023 End: 04-10-2023 Patient encounter procedure Kaela Rosa [facility] Start: 04-01-2023 End: 04-02-2023 Emergency department patient visit Tyson Dias Facility:[facility] Start: 03-26-2023 End: 03-30-2023 Evaluation and management of inpatient DO Ambrocio Jane Work Phone: [facility] [place] [facility] Work Phone: Start: 03-26-2023 End: 03-26-2023 Emergency department patient visit DO Ambrocio Jane Work Phone: [facility] Work Phone: Start: 03-21-2023 End: 03-21-2023 Emergency department patient visit DO Ambrocio Jane Work Phone: [facility] Work Phone: Start: 03-17-2023 End: 03-17-2023 ambulatory [facility] Facility:[facility] Start: 02-17-2023 End: 02-18-2023 ambulatory [facility] Facility:[facility] Start: 02-17-2023 End: 02-25-2023 Pre-admission assessment [facility] Start: 02-17-2023 End: 02-17-2023 Patient encounter procedure [facility] Start: 02-14-2023 Office outpatient vi sit 25 minutes Janki M Kajal Work Phone: [facility] [facility] DO Work Phone: Start: 02-14-2023 ambulatory Endy Santoyo Facilit y: Start: 01-10-2023 End: 01-10-2023 Emergency department patient visit DO Ambrocio Lara Work Phone: [facility] Work Phone: Start: 12-28-2022 End: 12-28-2022 Emergency department patient visit DO Wiley Haynes Work Phone: [facility] Work Phone: Start: 12-12-2022 End: 12-13-2022 ambulatory [facility] Facility:[facility] Start: 12-12-2022 End: 12-12-2022 Patient encounter procedure Haq SALAM [facility] Start: 11-20-2022 End: 11-20-2022 Emergency department patient visit DO Wiley Haynes Work Phone: [facility] Work Phone: Start: 09-10-2022 Patient encounter procedure Lynnette Melton PA-C Work Phone: [facility] Start: 09-10-2022 Progress Note Lynnette Melton PA-C Work Phone: [place] [employer] Start: 08-27-2022 Patient encounter procedure Itri A Gm Work Phone: [facility] Start: 08-27-2022 Progress Note Itri A Mg Work Phone: [place] [employer] [facility] Start: 07-24-2022 Office outpatient vi sit 25 minutes Janki M Kajal Work Phone: [facility] [facility] DO Work Phone: Start: 07-24-2022 ambulatory Endy Santoyo Facilit y: Start: 06-21-2022 End: 06-25-2022 Evaluation and management of inpatient MD Gt Galindo Work Phone: [facility] [place] [facility] Start: 02-07-2022 Telephone encounter Jaclyn Guzman RT (R) Radiology Comment on above: Radiology Pre Proced ure Instructions Start: 01-30-2022 End: 01-30-2022 Patient encounter procedure [facility] Work Phone: [facility] [place] Start: 01-09-2022 End: 01-09-2022 Patient encounter procedure Eun PIZARRO [facility] Start: 01-08-2022 Office outpatient vi sit 25 minutes Janki Garnergles Work Phone: [facility] [facility] DO Work Phone: Start: 01-08-2022 Patient encounter procedure Janki Andrade Kajal Work Phone: [facility] [facility] DO Work Phone: Start: 09-13-2021 Chart Update Janki Gameze s Work Phone: [facility] [facility] DO Work Phone: Start: 09-12-2021 Patient encounter procedure Janki Andrade Kajal Work Phone: [facility] Work Phone: Start: 08-10-2021 Telephone encounter Endy Campuzano MD Work Phone: [facility] [facility] DO Work Phone: Start: 08-27-2018 Patient encounter procedure ENDY SANTOYO Facility:[id number] Procedures Date Procedure Procedure Detail Performing Clinician Start: 03-31-2024 X-ray of right knee [facility] Work Phone: Start: 03-29-2024 MRI of head [facility] Work Phone: Start: 03-27-2024 CT angiography of neck vessels [facility] L[facility] Work Phone: Start: 03-27-2024 CT angiography of head [facility] Work Phone: Start: 03-27-2024 CT of head without contrast [facility] Work Phone: Start: 03-24-2024 CT cervical spine without contrast [facility] Lola [facility]ola Work Phone: Start: 03-24-2024 CT of head without contrast [facility] L[facility] Work Phone: Start: 02-23-2024 Plain chest X-ray [facility] Work Phone: Start: 02-23-2024 Radiologic examination of knee [facility] Lola [facility] Work Phone: Start: 02-05-2024 Computed tomography of abdomen and pelvis with contrast [facility] Work Phone: Start: 01-05-2024 Respiratory Panel (PCR) MD Eneida lopes Work Phone: Start: 01-05-2024 SARS-CoV-2, Influenza & RSV (PCR) MD Gonzalo Ratliff Work Phone: Start: 01-05-2024 [place] [facility] Work Phone: Start: 01-05-2024 Plain chest X-ray MD Eneida Ratliff Work Phone: Start: 12-27-2023 CT cervical spine without contrast MD Baljeet Ratliff Work Phone: Start: 12-27-2023 CT of head without contrast MD Eneida wesley Work Phone: Start: 12-27-2023 Radiologic examination of knee MD Eneida Ratliff Work Phone: Start: 12-12-2023 X-ray of left knee [facility] Work Phone: Start: 12-10-2023 Plain chest X-ray [facility] Work Phone: Start: 09-27-2023 SARS-CoV-2, Influenza & RSV (PCR) [facility] [employer] Work Phone: Start: 09-27-2023 Computed tomography of abdomen and pelvis with contrast [facility] [employer] Work Phone: Start: 04-25-2023 Radiologic exam knee complete 4/more views Gt Abreu MD Work Phone: Start: 03-29-2023 X-ray of left knee DO Ambrocio Jane Work Phone: Start: 03-26-2023 Radiography of sacrococcygeal spine DO Ambrocio Jnae Work Phone: Start: 03-26-2023 X-ray of lumbar spine, two or three views DO Ambrocio Jane Work Phone: Start: 03-26-2023 X-ray of right knee DO Ambrocio Jane Work Phone: Start: 03-21-2023 Computed tomography of abdomen and pelvis with contrast DO Ambrocio Jane Work Phone: Start: 03-21-2023 Screening for occult blood in feces DO Ambrocio Jane Work Phone: Start: 03-17-2023 Esophagogastroduodenoscopy Kaela nieto Start: 01-10-2023 CT of abdomen and pelvis without contrast DO Ambrocio Jane Work Phone: Start: 01-10-2023 CT of chest without contrast DO Ambrocio Li zzi Work Phone: Start: 11-20-2022 CT of head without contrast DO Wiley T upa Work Phone: Start: 06-22-2022 Duplex scan of lower limb veins MD Gavin Galindo Work Phone: Start: 06-22-2022 MRI of head MD Gt Galindo Work Phone: Start: 06-21-2022 Plain chest X-ray MD Gt Galindo Work Phone: Start: 06-21-2022 CT of head without contrast MD Gt laird Work Phone: Start: 01-30-2022 CT of head without contrast Jonna [employer] Work Phone: Start: 12-24-2021 Esophagogastroduodenoscopy Haq DEVAUGHNDEL Comment on above: gastric bezoar Start: 08-08-2020 Colonoscopy Kaela Shelley Start: 09-09-2019 Decompression of median nerve Eun Andrade Comment on above: Left Cardiac catheterization Mahjl r SALAM Colonoscopy Janki Rdz Work Phone: Comment on above: [id number] Sohan Walters; Decompression of median nerve Haqkiersten PIZARRO Comment on above: right Operative procedure on foot Janki Rdz Work Phone: Comment on above: right; Placement of stent i n coronary artery Haq SALAM Comment on above: total of nine SARS Antigen (LFIA) MD Gavin Galindo Work Phone: Tonsillectomy Janki Pascual s Work Phone: Plan of Treatment Date Care Activity Detail Author Start: 03-29-2028 Urine microalbumin profile DTaP,Tdap,Td Vaccine (2 - Td or Tdap) [facility] Start: 04-01-2026 DIABETES SCREEN DIABETES SCREEN [facility] Start: 04-01-2026 Diabetes Screening Diabetes Screening [facility] Start: 06-18-2025 Adult BMI Screening Adult BMI Screening [facility] Start: 05-11-2025 Adult BMI Screening Adult BMI Screening [facility] Start: 04-25-2024 Covid-19 Vaccine ( season) Covid-19 Vaccine ( season) [facility] Start: 04-25-2024 Influenza vaccination [facility] Start: 04-09-2024 [facility] Start: 03-31-2024 Hospital admission [facility] Start: 03-29-2024 [facility] Start: 03-27-2024 Referral to psychiatrist [facility] Start: 03-27-2024 Hospital admission [facility] Start: 03-27-2024 Referral to neurologist [facility] Start: 03-27-2024 End: 03-27-2024 [facility] Start: 03-27-2024 CT angiography of neck vessels [facility] Start: 03-27-2024 CT angiography of head [facility] Start: 03-27-2024 CT of head without contrast CT head/brain wo con [facility] Start: 03-25-2024 [facility] Start: 03-24-2024 Referral to clinical certified genetic counselor [facility] Start: 03-24-2024 Referral to Litigation Attorney [facility] Start: 03-24-2024 Hospital admission [facility] Start: 03-24-2024 [facility] Start: 02-23-2024 Plain chest X-ray XR chest 1V portable [facility] Start: 02-23-2024 Radiologic examination of knee XR knee LT 4V* [facility] Start: 02-23-2024 XR Chest Single view [facility] Start: 02-23-2024 XR Knee - left 4 Views [facility] Start: 01-05-2024 [facility] Start: 01-05-2024 End: 01-05-2024 [facility] Start: 01-05-2024 Hospital admission [facility] Start: 01-05-2024 [facility] Start: 01-05-2024 Plain chest X-ray XR chest 2V* [facility] Start: 01-05-2024 XR Chest 2 Views [facility] Start: 12-27-2023 CT cervical spine without contrast CT cervical spine wo con [facility] Start: 12-27-2023 CT Cervical spine WO contrast [facility] Start: 12-27-2023 CT of head without contrast CT head/brain wo con [facility] Start: 12-27-2023 CT Unspecified body region WO contrast [facility] Start: 12-27-2023 Radiologic examination of knee XR knee LT 4V* [facility] Start: 12-27-2023 XR Knee - left 4 Views [facility] Start: 12-15-2023 [facility] Start: 12-11-2023 Referral to Litigation Attorney [facility] Start: 12-11-2023 Sleep disorder assessment [facility] Start: 12-11-2023 Hospital admission [facility] Start: 12-11-2023 End: 12-11-2023 [facility] Start: 12-10-2023 Hospital admission [facility] Start: 12-10-2023 Referral to psychiatrist [facility] Start: 12-10-2023 [facility] Start: 12-10-2023 Plain chest X-ray XR chest 2V* [facility] Start: 12-10-2023 XR Chest 2 Views [facility] Start: 10-31-2023 FUV, Provider: Endy Santoyo, Status: Pen, Time: 1:20 PM FUV, Provider: Endy Santoyo, Status: Pen, Time: 1:20 PM -[facility] 250 DO Work Phone: Start: 05-23-2023 DIABETES SCREEN DIABETES SCREEN [facility] Start: 05-04-2023 Plain X-ray of right femur XR femur RT 2V* [facility] Start: 05-04-2023 X-ray of right knee XR knee RT 2V [facility] Start: 05-04-2023 XR Femur - right 2 Views [facility] Start: 05-04-2023 XR Knee - right 2 Views [facility] Start: 04-25-2023 Influenza vaccination INFLUENZA (#1) [facility] Start: 03-30-2023 [facility] Start: 03-27-2023 Referral to bleacher [employer] [facility] Start: 03-26-2023 Hospital admission [facility] Start: 02-14-2023 FUV, Provider: Endy Santoyo, Status: Pen, Time: 2:20 PM FUV, Provider: Endy Santoyo, Status: Pen, Time: 2:20 PM [facility] 250 DO Work Phone: Start: 12-28-2022 CT cervical spine without contrast CT cervical spine wo [facility] Start: 12-28-2022 CT Cervical spine WO contrast [facility] Start: 12-28-2022 CT of head without contrast CT head/brain wo [facility] Start: 12-28-2022 CT Unspecified body region WO contrast [facility] Start: 11-20-2022 [facility] Start: 2022 RSV Vaccine (1 - 1-dose 60+ series) RSV Vaccine (1 - 1-dose 60+ series) [facility] Start: 08-25-2022 DEPRESSION ASSESSMENT DEPRESSION ASSESSMENT [facility] Start: 07-24-2022 FUV, Provider: Endy Santoyo, Status: Pen, Time: 3:30 PM FUV, Provider: Endy Santoyo, Status: Pen, Time: 3:30 PM [facility] 250 DO Work Phone: Start: 06-24-2022 [facility] Start: 06-22-2022 Blood chemistry [facility] Start: 06-22-2022 [facility] Start: 06-21-2022 Sleep disorder assessment [facility] Start: 06-21-2022 Consultation [facility] Start: 06-21-2022 Hospital admission [facility] Start: 06-21-2022 [facility] Start: 04-25-2022 Influenza vaccination [facility] Start: 10-23-2021 FUV, Provider: Enyd Santoyo, Status: Pen, Time: 10:45 AM FUV, Provider: Endy Santoyo, Status: Pen, Time: 10:45 AM -[facility] [employer] [facility] 250 DO Work Phone: Start: 09-12-2021 REST ONLY, Provider: BREANA ROBISONI NUCLEAR 01,[id number], Status: Pen, Time: 10:00 AM REST ONLY, Provider: BREANA HHVI NUCLEAR 01,[id number], Status: Pen, Time: 10:00 AM [facility] 250 DO Work Phone: Start: 09-11-2021 STRESSNUC2, Provider: BREANA HHVI NUCLEAR 01,[id number], Status: Pen, Time: 12:30 PM STRESSNUC2, Provider: BREANA HHVI NUCLEAR 01,[id number], Status: Pen, Time: 12:30 PM [facility] 250 DO Work Phone: Start: 02-16-2021 COVID-19 VACCINE (3 - Booster for Moderna series) COVID-19 VACCINE (3 - Booster for Moderna series) [facility] Start: 06-05-2020 Shingrix Vaccine (3 of 3) Shingrix Vaccine (3 of 3) [facility] Start: 2017 PROSTATE CANCER SCREENING DISCUSSION PROSTATE CANCER SCREENING DISCUSSION [facility] Start: 2017 Prostate specific antigen measurement Prostate Cancer Screening Discussion [facility] Start: 2012 Administration of varicella zoster vaccine Zoster (Shingles) Vaccine (1 of 2) [facility] Start: 2012 SHINGRIX VACCINE (1 of 2) SHINGRIX VACCINE (1 of 2) [facility] Start: 11-10-2007 COLOGUARD (FIT-DNA) COLOGUARD (FIT-DNA) [facility] Start: 11-10-2007 Colonoscopy COLONOSCOPY [facility] Start: 11-10-2007 COLORECTAL CANCER SCREENING COLORECTAL CANCER SCREENING [facility] Start: 11-10-[address] COLONOGRAPHY [facility] Start: 11-10-2007 FECAL OCCULT BLOOD FECAL OCCULT BLOOD [facility] Start: 11-10-2007 Screening for malignant neoplasm of colon [facility] Start: 11-10-2007 SIGMOIDOSCOPY SIGMOIDOSCOPY [facility] Start: 1997 Lipid panel Lipid Screening [facility] Start: 1997 LIPID SCREEN LIPID SCREEN [facility] Start: 1981 DTaP,Tdap and Td Vaccines (1 - Tdap) DTaP,Tdap and Td Vaccines (1 - Tdap) [facility] Start: 1981 Urine microalbumin profile DTAP,TDAP,TD (1 - Tdap) [facility] Start: 1980 Adult BMI Follow Up Plan Adult BMI Follow Up Plan [facility] Start: 1980 Adult BMI Screening Adult BMI Screening [facility] Start: 1980 Anxiety Screening Anxiety Screening [facility] Start: 1980 Depression Screening Depression Screening [facility] Start: 1980 Diabetic foot examination Diabetic Foot Exam [facility] Start: 1980 HEPATITIS C SCREENING HEPATITIS C SCREENING [facility] Start: 1980 Hepatitis C screening Hepatitis C Screening [facility] Start: 1980 HIV SCREENING HIV SCREENING [facility] Start: 1980 HIV screening HIV Screening [facility] Start: 1974 Adult depression screening assessment DEPRESSION SCREENING [facility] Start: 1974 Tobacco Screening Tobacco Screening [facility] Start: 11-10-1967 COVID-19 VACCINE (#1) COVID-19 VACCINE (#1) [facility] Start: 1962 Glaucoma screening Diabetic Ophthalmology Exam [facility] Albumin/Globulin ratio [facility] Anion gap measurement [facility] Anion gap measurement [facility] aPTT in Platelet poo r plasma by Coagulation assay [facility] Basophils [#/volume] in Blood by Automated count [facility] Basophils/100 leukoc ytes in Blood by Automated count [facility] Eosinophils/100 leuk ocytes in Blood by Automated count [facility] Erythrocyte distribu tion width [Ratio] by Automated count [facility] Erythrocytes [#/volu me] in Blood [facility] Globulin [Mass/volum e] in Serum [facility] Glucose measurement estimated from glycated hemoglobin [facility] Hematocrit [Volume Fraction] of Blood [facility] Hemoglobin [Mass/vol ume] in Blood [facility] INR in Platelet poor plasma by Coagulation assay [facility] Leukocytes [#/volume ] corrected for nucleated erythrocytes in Blood by Automated coun [facility] Leukocytes [#/volume ] in Blood [facility] Lymphocytes [#/volum e] in Blood by Automated count [facility] Lymphocytes/100 leuk ocytes in Blood by Automated count [facility] MCH [Entitic mass] b y Automated count [facility] MCHC [Mass/volume] b y Automated count [facility] MCV [Entitic volume] by Automated count [facility] Monocytes [#/volume] in Blood by Automated count [facility] Monocytes/100 leukoc ytes in Blood by Automated count [facility] Neutrophils [#/volum e] in Blood by Automated count [facility] Neutrophils/100 leuk ocytes in Blood by Automated count [facility] Nucleated erythrocyt es [Presence] in Blood by Automated count [facility] Patient Education [facility] Work Phone: Patient referral [facility] Work Phone: Platelet mean volume [Entitic volume] in Blood by Automated count [facility] Platelets [#/volume] in Blood [facility] Prothrombin time (PT) [facility] End: 05-21-2024 XR KNEE GENERAL 4V AP BOTH/PA BOTH/LAT/MERC BILATERAL XR KNEE GENERAL 4V AP BOTH/PA BOTH/LAT/MERC BILATERAL Radiology Routine Primary osteoarthritis of both knees 1 Occurrences starting 04/22/2023 until 05/21/2024 [facility] Work Phone: Comment on above: 1 Occurrences starting 04/22/2023 until 05/21/2024 [facility] Immunizations Immunization Date Immunization Notes Care Provider Albino freire 05-31-2022 influenza virus vacc ine, unspecified formulation Eun PIZARRO [facility] 05-31-2022 Moderna COVID-19 Vac cine 100 MCG/0.5ML Intramuscular Suspension Janki Rdz Work Phone: [facility] 250 DO Work Phone: Comment on above: Series: 05-31-2022 SARS-CoV-2 (COVID-19 ) [id number] Eun PIZARRO [facility] 09-07-2021 Moderna COVID-19 Vac cine 100 MCG/0.5ML Intramuscular Suspension Janki Lupe Kajal Work Phone: [facility] 250 DO Work Phone: Comment on above: Series: 05-25-2021 influenza virus vacc ine, unspecified formulation Haqkiersten CANTORAM [facility] 12-22-2020 Moderna COVID-19 Vac cine 100 MCG/0.5ML Intramuscular Suspension Janki Lupe Kajal Work Phone: [facility] 11-11-2020 Moderna COVID-19 Vac cine 100 MCG/0.5ML Intramuscular Suspension Janki M Kajal Work Phone: [facility] 05-25-2020 influenza virus vacc ine, unspecified formulation Janki M Kajal Work Phone: [facility] 04-10-2020 influenza virus vacc ine, unspecified formulation Haq SALAM [facility] 04-10-2020 influenza, injectabl e, quadrivalent, preservative free Janki M Kajal Work Phone: [facility] 250 DO Work Phone: 04-10-2020 zoster vaccine recombinant Janki M Kajal Work Phone: [facility] 07-08-2019 influenza virus vacc ine, unspecified formulation Haq SALAM [facility] 07-08-2019 Influenza, injectabl e, Madin Lucas Canine Kidney, preservative free, quadrivalent Janki Lupe Kajal Work Phone: [place] [address] DO Work Phone: 04-25-2019 influenza virus vacc ine, unspecified formulation Janki Lupe Kajal Work Phone: [facility] 250 DO Work Phone: 05-25-2018 influenza virus vacc ine, unspecified formulation Janki Lupe Kajal Work Phone: [facility] 250 DO Work Phone: 05-25-2018 pneumococcal polysaccharide vaccine, 23 valent Janki Lupe Kajal Work Phone: [facility] 250 DO Work Phone: 03-29-2018 pneumococcal polysaccharide vaccine, 23 valent Janki Andrade Kajal Work Phone: [facility] 03-29-2018 tetanus toxoid, redu [place] diphtheria toxoid, and acellular pertussis vaccine, adsorbed Janki Andrade Kajal Work Phone: [facility] 04-25-2017 influenza virus vacc ine, unspecified formulation Janki Lupe Kajal Work Phone: [place] [address] DO Work Phone: 04-13-2017 influenza virus vacc ine, unspecified formulation Haq SALAM [facility] 04-13-2017 influenza, injectabl e, quadrivalent, preservative free Janki Andrade Kajal Work Phone: [facility] 250 DO Work Phone: 04-13-2017 zoster vaccine, live Janki Lupe Kajal Work Phone: [facility] 05-26-2015 influenza virus vacc ine, unspecified formulation Haq SALAM [facility] 05-25-2015 influenza virus vacc ine, unspecified formulation Janki Andrade Kajal Work Phone: [email or web address] 250 DO Work Phone: 05-19-2013 influenza virus vacc ine, unspecified formulation [facility]anki Andrade Kajal [facility] Work Phone: 04-25-2011 pneumococcal polysaccharide vaccine, 23 valent [facility]anki Andrade Kajal [facility] Work Phone: 05-14-2010 influenza virus vacc ine, unspecified formulation Janki Andrade Kajal [facility] Work Phone: 08-25-2007 influenza virus vacc ine, unspecified formulation Haq SALAM [facility] 08-25-2007 influenza, seasonal, injectable, preservative free Janki Andrade Kajal Work Phone: [email or web address] 250 DO Work Phone: influenza virus vacc ine, unspecified formulation Janki Andrade Kajal [facility] Work Phone: Comment on above: Apr Payers Date Payer Category Payer Self-pay [id number] 2023 Medicare HMO [employer] MEDICARE [id number] 2023 Unknown [id number] 2023 Unknown 2016 Medicaid MEDICAID [facility] MEDICAID [id number] 2016-Present [phone] [address] [place] [address] Medicaid [id number] 2016 Medicaid [id number] 2016 Medicaid [id number] 1993 Medicare MEDICARE MEDICAR E A AND B [id number] 1993-Present [phone] [place] [address] Medicare [id number] 1993 Medicare [id number] 1993 Medicare MEDICARE MEDICAR E A AND B [id number] 1993-Present [phone] [place] [address] Medicare [id number] 1962 Unknown [id number] 1962 Unknown [id number] 1962 Unknown [id number] [id number]7 1962 Unknown [id number] 2.16.840.1.070063.3.579.2.72 1962 Unknown [id number] 2.16.840.1.041696.3.579.2.727 1962 Unknown [id number] 2..840.1.788378.3.579.2. 1962 Unknown [id number] 2.16.840.1.114360.3.579.2. 1962 Unknown [id number] 2..840.1.874773.3.579.2. 1962 Unknown [id number] 2..840.1.550380.3.579.2. 1962 Unknown [id number] 2.840.1.060596.3.579.2.355 Medicare [id number] Unknown [id number] 2.16.840.1.710110.3.579.2.531 Unknown [id number] 2.16.840.1.869146.3.579.2.531 Unknown [id number] 2.16.840.1.351384.3.579.2.531 Unknown [id number] 2.16.840.1.463242.3.579.2.531 Unknown [id number] 2.16.840.1.041007.3.579.2.531 Unknown [id number] 2.16.840.1.013005.3.579.2.531 Unknown [id number] 2.16.840.1.627628.3.579.2.531 Unknown [id number] 2.16.840.1.389339.3.579.2.531 Unknown [id number] 2.16.840.1.103781.3.579.2.531 Unknown [id number] 2.16.840.1.081083.3.579.2.531 Unknown [id number] Social History Date Type Detail Facility Start: 08-02-2020 No alcohol use No alcohol use -[facility] DO Work Phone: Comment on above: quit in 2005, smoked 2 PPD; 2 cups of coffee shaylee ly, 1/2 gallon of tea daily; Start: 11-14-2021 End: 04-01-2024 Tobacco smoking status Never smoked tobacco (finding) [facility] Tobacco smoking status Never [facility] Start: 08-02-2020 Sex Assigned At Male F [facility] Start: 08-11-2013 End: 03-24-2024 Tobacco smoking status MOIS Ex-smoker [facility] End: 05-12-2006 History of tobacco use Current smoker 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 Start: 08-11-2013 History SDOH Alcohol Comment QUIT [address] [facility] Start: 1960 Sex Assigned At Not on file C [facility] Start: 1960 Sex Assigned At Male F [facility] End: 05-12-2006 History of tobacco use Cigarette Smoker [facility] Tobacco smoking status [facility] Tobacco smoking consumption unknown [facility] Start: 04-15-2024 Sex Male (finding) [facility] Medical Equipment Procedure Code Equipment Code Equipment Origin al Text Equipment Identifier Dates Lancets Start: 03-28-2023 Lancets Start: 03-28-2023 Lancets Start: 03-28-2023 Lancets Start: 03-28-2023 Lancets Start: 03-28-2023 Lancets Start: 03-28-2023 Lancets Start: 03-28-2023 Lancets Start: 03-28-2023 Lancets Start: 03-28-2023 Lancets Start: 03-28-2023 Lancets Start: 03-28-2023 Lancets Start: 03-28-2023 Lancets Start: 03-28-2023 Lancets Start: 03-28-2023 Goals Date Patient Goal Desired Activity /State Functional Status Date Assessment Result Facility 04-09-2024 Functional status Patient at Baseline [facility] Work Phone: 03-29-2024 Functional status Patient at Baseline [facility] Work Phone: 03-27-2024 Functional status Patient Not at Baseline [facility] Work Phone: 01-05-2024 Functional status Patient at Baseline [facility] Work Phone: 12-15-2023 Functional status Patient at Baseline [facility] Work Phone: 12-11-2023 Functional status Patient at Baseline [facility] Work Phone: 12-11-2023 Functional status Patient at Baseline [facility] Work Phone: 04-10-2023 Functional Status N/A [facility] 03-30-2023 Functional status Patient at Baseline [facility] Work Phone: 12-12-2022 Functional Status N/A [facility] 06-25-2022 Functional status Patient is Pro gressing Toward Baseline [facility] Work Phone: 06-21-2022 Functional status Patient at Baseline [facility] Work Phone: Mental Status Date Assessment Result Facility 04-09-2024 Cognitive function Patient at Baseline [facility] Work Phone: 03-29-2024 Cognitive function Patient at Baseline [facility] Work Phone: 03-27-2024 Cognitive function Patient Not at Baselin e [facility] Work Phone: 01-05-2024 Cognitive function Patient at Baseline [facility] Work Phone: 12-15-2023 Cognitive function Cognitive Sta tus Patient at Baseline [facility] Work Phone: 12-11-2023 Cognitive function Cognitive Sta tus Patient at Baseline [facility] Work Phone: 12-11-2023 Cognitive function Cognitive Sta tus Patient at Baseline [facility] Work Phone: 03-30-2023 Cognitive function Cognitive Sta tus Patient at Baseline [facility] Work Phone: 06-25-2022 Cognitive function Cognitive Sta tus Patient at Baseline [facility] Work Phone: 06-21-2022 Cognitive function Cognitive Sta tus Patient at Baseline [facility] Work Phone: Clinical Notes 02-07-2022 to 06-19-2024 Telephone Encounter - Leslie Alejandro CMA - 06/19/2024 5:38 PM EDTTelephone Encounter - Leslie Alejandro CMA - 06/19/2024 5:38 PM EDTHarvey Barros DO - 06/18/2024 3:41 PM EDT Note Date & Type Note Facility 06-19-2024 Miscellaneous Notes Formattin g of this note might be different from the original. Contract: Devyn Quinones called said pt's sugar dropped, pt was unresponsive and had multiple seizures. EMS is there now. Connected Stacie to Dr Barros documented in this encounter [facility] 06-19-2024 Telephone encount er Note Contract: Devyn Quinones called said pt's sugar dropped, pt was unresponsive and had multiple seizures. EMS is there now. Connected Stacie to Dr Barros [facility] 06-18-2024 History of Presen t illness Narrative Patient Name: Mannie Michel Date of : 1960 Date of Service: 06/18/2024 Facility: [facility] Type of Visit: Subsequent Visit Subjective Mannie Michel is a 63 y.o. male seen today at half-way facility for monthly visit. Mannie is still having pain in his left knee. He thinks it is arthritis. He is taking tylenol for it with fair improvement. It hurts when he walks. He also wears a brace. He never saw ortho. He is willing to have further evaluation and treatment. He had labs done last month Allergies: Patient has no allergy information on record. Code Status: FULL CODE BP 132/72 Pulse 74 Temp 36.2 C (97.1 F) Wt 120.6 kg (265 lb 12.8 oz) SpO2 97% BMI 37.07 kg/m Physical Exam Vitals reviewed. Constitutional: General: He is not in acute distress. Appearance: He is obese. HENT: Head: Normocephalic. Cardiovascular: Rate and Rhythm: Normal rate and regular rhythm. Pulses: Normal pulses. Heart sounds: Normal heart sounds. No murmur heard. Pulmonary: Effort: Pulmonary effort is normal. No respiratory distress. Breath sounds: Normal breath sounds. No wheezing, rhonchi or rales. Musculoskeletal: Cervical back: Neck supple. Right knee: Crepitus present. Decreased range of motion. Tenderness present. Comments: Wouldn't let ne do a full exam due to pain Lymphadenopathy: Cervical: No cervical adenopathy. Neurological: General: No focal deficit present. Mental Status: He is alert and oriented to person, place, and time. Gait: Gait abnormal (walks with a walker). Psychiatric: Attention and Perception: Attention normal. Mood and Affect: Mood and affect normal. Speech: Speech normal. Behavior: Behavior normal. Behavior is cooperative. Thought Content: Thought content normal. Cognition and Memory: Cognition normal. Judgment: Judgment normal. Labs: Lipids at goal. Glucose 179; GFR 115; Cl- 97 Summary / Assessment / Plan 1. Type 2 diabetes mellitus without complication, with long-term current use of insulin ([facility]) 2. Left knee pain, unspecified chronicity 3. Unspecified dementia, unspecified severity, with other behavioral disturbance ([facility]) 4. Generalized anxiety disorder Check X-ray of left knee. Check A1c. Continue other orders as directed. All medications reviewed and are medically necessary. ELECTRONICALLY SIGNED BY: Harvey Barros DO documented in this encounter [employer] 05-11-2024 History of Presen t illness Narrative Patient Name: Mannie Michel Date of : 1960 Date of Service: 05/11/2024 Facility: [facility] Type of Visit: Skilled Visit Subjective Mannie Michel is a 63 y.o. male seen today at half-way facility for therapy visit. Patient was evaluated for therapy due to knee pain and increased difficulty in walking. They are appealing to insurance to authorize physical therapy. He has no new problems to report. Allergies: Patient has no allergy information on record. Code Status: FULL CODE BP 129/76 Pulse 82 Temp 36.2 C (97.1 F) Resp 18 Wt 115.3 kg (254 lb 3.2 oz) SpO2 96% BMI 35.45 kg/m Physical Exam Vitals reviewed. Constitutional: General: He is not in acute distress. Appearance: He is obese. HENT: Head: Normocephalic. Cardiovascular: Rate and Rhythm: Normal rate and regular rhythm. Pulses: Normal pulses. Heart sounds: Normal heart sounds. No murmur heard. Pulmonary: Effort: Pulmonary effort is normal. No respiratory distress. Breath sounds: Normal breath sounds. No wheezing, rhonchi or rales. Musculoskeletal: Cervical back: Neck supple. Right knee: Crepitus present. Decreased range of motion. Tenderness present. Lymphadenopathy: Cervical: No cervical adenopathy. Neurological: General: No focal deficit present. Mental Status: He is alert and oriented to person, place, and time. Psychiatric: Attention and Perception: Attention normal. Mood and Affect: Mood and affect normal. Speech: Speech normal. Behavior: Behavior normal. Behavior is cooperative. Thought Content: Thought content normal. Cognition and Memory: Cognition normal. Judgment: Judgment normal. Summary / Assessment / Plan 1. Right knee pain, unspecified chronicity 2. Unspecified dementia, unspecified severity, with other behavioral disturbance ([facility]) We are waiting to see if his physical therapy will be approved or not. Medically stable. All medications reviewed and are medically necessary. ELECTRONICALLY SIGNED BY: Harvey Barros DO documented in this encounter [employer] 04-07-2024 Progress note Note Date/Time April 07, 2024 10:10am [facility] [address] [place] [address] Psychiatry Progress Note Signed Patient: Mannie Michel MR#: [id number] : 1960 Acct:[id number] Age/Sex: 63 / M Adm Date: 4 Loc: 1S Room: [address] [place] [address] Type : ADM IN Attending Dr: Jose Carlos Lindquist MD Copies to: ~ Date of Service: 04/07/2024 Subjective Subjective Narrative: Mr. Mannie Michel is a 63 year old male on day 7 of hospitalization for anxiety and depression with suicidal ideation Today, pt presented as pleasant and cooperative; he was cheery and joking aroundin the common area this morning; states his anxiety is 9/10 and depression is 7/10 Eating well, states he is only sleeping 3hrs per night but reporting to nursing he sleeps 8hrs Attending group No SI/HI tolerating current meds Patient was personally seen by me on the day of the encounter. I reviewed the history and performed the fuentes elements of the assessment. I formulated the planof care and confirmed this with the medical student as noted below MSE Appearance: grossly normal. Fair grooming and hygiene, calm, cooperative, engaged in the interview. Good eye contact. Normal psychomotor activity. Mental Status: mental status grossly normal Mood: good Affect: mood-congruent affect Speech and Movement: speech and movement normal and speech clear. Regular rate, rhythm, volume, and tone. Non pressured. Attitude: cooperative Thought Process: normal; linear, logical, and goal-oriented Thought Content: Denies paranoid or delusional thoughts. Denied hallucinations, no homicidality and no suicidality. Does not appear to be responding to internalstimuli. Insight: fair Judgment: fair Exam Physical Exam Vital Signs: Temp Pulse Resp BP Pulse Ox O2 Del Method 98.2 F 86 18 142/83 H 99 Room Air 04/07/24 07:30 04/07/24 07:30 04/07/24 07:30 04/07/24 07:30 04/07/24 07:30 04/07/24 07:30 Assessment/Plan Assessment/Plan (1) Major depressive disorder, recurrent, moderate: (2) Generalized anxiety disorder: Plan Patient reported depression and anxiety but objectively seems to be in better spirits Awaiting results from [facility] that was completed today to determine discharge placement Continue Buspirone, donepezil, quetiapine, trazodone, Celexa Continue to monitor mental status Monitor suicidal behaviors for safety of self (15-minute face check) Encourage medication adherence. Risks, benefits, and alternatives of treatment explained Recommend? attending groups and psychoeducation for building coping skills Risks, benefits and indications of medications were discussed with the patient No abnormal movements noted on exam. AIMS is Zero Involve friends/family members to coordinate care and ensure appropriate outpatient appointments are scheduled prior to discharge Documented By: Nigel Rdz MD [id number] Signed By: <Electronically signed by Nigel Rdz MD> 04/07/24 4645 [facility] Work Phone: 1(761) 211-256108-13-2024 Discharge summary Author Nigel nieto [facility] April 06, 2024 9:25am Note Date/Time April 06, 2024 8: 43am [facility] [address] [place] [address] Discharge Summary Signed Patient: Mannie Michel MR#: [id number] : 1960 Acct:[id number] Age/Sex: 63 / M Adm Date: 4 Loc: Room: [address] [place] [address]: Jose Carlos Lindquist MD Copies to: MD Jose Carlos Cerna MD [facility] [place]~ Providers Date of Discharge: 04/06/24 Discharging Provider: Nigel Rdz Primary Care Provider: [facility] Discharge Diagnosis (1) Major depressive disorder, recurrent, moderate: (2) Generalized anxiety disorder: Final Diagnosis Final Discharge Diagnosis: Major depressive disorder with psychotic features Summary Hospital Course Hospital course: Mannie Michel is a 63 year old male?with a reported history of?depression, anxiety, dementia, DM2, HLD, HTN, previous NM, RLS?who presents for inpatient treatment due to depression with suicidal ideation/attempt. Reportedly, the patient called EMS while attempting to walk out into oncoming traffic. Pt was walking directly on the side of the road and threatened to continue onto the road. Police and EMS collected Mannie and brought him to the ED where he was ultimately transferred back to the psychiatric unit. At the time of the interview, he presented as being pleasant and talkative. The pt stated that he was doing better after his discharge but then found out that he would be losing his residence. He stated that they gave him only 30 days to move all his stuff out or they will be confiscated. After this, the pt went around to family members to see if he would be able to stay with one of them. The pt reported that none of them were willing to help him out and this ultimately put him into a depressed state of mind. The pt mentioned before that he does not get along with a lot of his family as they have not been supportive of the pt's loss of his and his ongoing medical issues. The pt stated that the combination of not having a place to live with the lack of support system really pushed him into making a poor choice. The pt claimed that he called EMS and then attempted to walk onto the road before police noticed him and rounded him up before EMS arrived. The pt states he also has been having bad headaches and wants to work with his counselor to find a place for him to stay after his next discharge. Mood has been improving since admission. We discussed importance of med compliance. Anxiety is moderate in intensity with attempted utilization of coping skills. He denies SI/HI and verbalized the intent to notify staff if he has such thoughts. His symptoms have been improving and his affect is becoming brighter. He continues to be compliant with prescribed medications and is visible within the unit milieu. He alluded to psychosocial stressors being the primary issue that he is struggling with. He described staff as supportive and non judgmental He has no hx of recent attempts, and has been future oriented, participated in group activities, articulated needs appropriately, and displayed no self-harm behaviors. Imminent risk is low given factors noted above. Further inpatient hospitalization unlikely to mitigate suicide risk, and pt agrees to f/u with outpatient psych care. All lab results discussed with patient. We also discussedprognosis of illness and importance of outpatient CBT. He agreed to continue thecurrent medications regimen. Risks, benefits, and indications of medications were discussed. He verbalized understanding. Guardianship application was completed as patient continues to struggle with decision-making capacity at times. This should help with improving his prognosis. Overall, he has a positive mood and attitude towards life. Acute suicide risk assessment was low. His modifiable risk factors including anxiety, depression were managed with current medication. He did not report anysuicidality today and no suicidality behavior during his hospitalization. He has been attending groups and is motivated for outpatient treatment He has somechronic risk factors due to his previous hospitalizations and suicide attempts but said he is in a much better place compared to the time of admission. Per case management note, Analy from [employer] called for an update, she was told pt will be discharging tomorrow to [facility] in [place]. She was also made aware that Dr. Cornelius is to fill out expert eval andwe will call them for orange picking supervisor amandeep. Appearance: dressed casually Mental Status: mental status grossly normal Mood: Euthymic mood Affect: Normal affect Speech and Movement: speech and movement normal and speech clear Attitude: cooperative Thought Process: normal Thought Content: Denied hallucinations, no homicidality and no suicidality Insight: fair Judgment: fair Impulse control: fair Time spent discussing smoking cessation with patient: more than 10 minutes Condition Condition at Discharge: Stable Time Spent with Patient Time spent providing/coordinating discharge services (# min): 63 Discharge Plan Discharge Plan Patient Disposition: Home Activity: No Activity Restriction Diet: Regular Additional Instructions: Important Contact Information You can call [facility] at [phone] any time day or night if you have emergent questions or question regarding discharge instructions. If at any time you are feeling an increase inyour psychiatric symptoms, call your physician or behavioral healthcare provider. If any time you have thoughts of harming yourself or others contact one of the following: Call (available 17/03) Crisis Text Line (available 17/03) text 4HOPE to [phone] [facility] Hope Line (available 8 a.m. Midnight) call [phone] ([phone]) Regular Diet No Activity Restrictions Instructions: Depression, Adult (DC), [facility] [place] Instructions, Know your Meds Prescriptions: New quetiapine 100 mg Tablet 100 mg PO QHS 15 Days Qty: 15 2RF diclofenac sodium 1 % Gel 2 g topical BID PRN (Reason: pain) 30 Days Qty: 30 0RF Continued gabapentin 600 mg tablet 1,200 mg PO TID buspirone 5 mg Tablet 5 mg PO BID 15 Days Qty: 30 2RF metformin 500 mg tablet 1,000 mg PO BID 30 Days Qty: 120 0RF atorvastatin 80 mg tablet 80 mg PO HS 30 Days Qty: 30 0RF citalopram 40 mg Tablet 40 mg PO DAILY Qty: 30 0RF trazodone 50 mg Tablet 50 mg PO QHS PRN (Reason: Insomnia) 30 Days Qty: 15 2RF donepezil 10 mg tablet 10 mg PO DAILY Qty: 30 0RF clopidogrel 75 mg tablet 75 mg PO DAILY Qty: 30 0RF famotidine 20 mg tablet 20 mg PO DAILY 30 Days Qty: 30 0RF pantoprazole 40 mg Tablet,Delayed Release (Dr/Ec) 40 mg PO DAILY 30 Days Qty: 30 0RF ropinirole 0.5 mg tablet 0.5 mg PO QHS 30 Days Qty: 30 0RF metoprolol tartrate 50 mg tablet 50 mg PO BID 30 Days Qty: 60 0RF nitroglycerin 0.4 mg Tablet, Sublingual 0.4 mg SUBLINGUAL Q5M PRN (Reason: Chest Pain) 30 Days Qty: 30 0RF Rx Instructions: up to 3 doses furosemide 20 mg tablet 20 mg PO DAILY 30 Days Qty: 30 0RF fluticasone propionate 50 mcg/actuation spray,suspension 2 spray INTRANASAL DAILY 30 Days Qty: 30 0RF insulin glargine 100 unit/mL (3 mL) insulin pen 35 unit subcut BID 30 Days Qty: 21 0RF Trulicity 3 mg/0.5 mL Pen Injector 3 mg SUBCUT QWEEK 30 Days Qty: 1 0RF Patient Comments: takes on friday primidone 125 mg tablet 125 mg PO TID 30 Days Qty: 90 0RF insulin aspart U-100 [Novolog FlexPen U-100 Insulin] 100 unit/mL (3 mL) Insulin Pen See Protocol subcut TID.WM.HS.2A 30 Days Qty: 3 0RF Protocol: Custom Scale - Custom (Blank) Condition: Custom Scale 1:___ Instruction: GIVE 1 UNIT OF ASPART FOR EVERY ___MG GLUCOSE Instruction: STARTING AT 150MG AT BG CHECKS Condition: Dose/Route: Instruction: Condition: Fingerstick Blood Glucose Dose/Route: Insulin Units Condition: 151-200mg/dl Dose/Route: 2 unit Condition: 201-250mg/dl Dose/Route: 3 units Condition: 251-300mg/dl Dose/Route: 4 units Condition: 301-350mg/dl Dose/Route: 6 units Condition: 351-400mg/dl Dose/Route: 6 units Condition: greater than 400mg/dl Dose/Route: 10 units Instruction: notifiy doctor Protocol Text: *If the corrective scale dose has been administered within the past 4 hours, do not use corrective scale again unless approved by prescriber* Changed insulin aspart U-100 100 unit/mL insulin pen 3 unit subcut QID 30 Days Qty: 3 0RF Patient Comments: inject 3 units subcutaneously PER 10 CARBS FOUR TIMES PER DAY Discontinued quetiapine 50 mg Tablet 50 mg PO QHS No Action (DME) blood-glucose meter Kit Qty: 1 0RF Rx Instructions: FSBS AC/HS (DME) blood sugar diagnostic Strip Qty: 100 0RF Rx Instructions: FSBS ACHS (DME) lancets Misc Qty: 100 0RF Rx Instructions: FSBS AC/HS Follow Up: [facility], Behavioral Health [Other] ( This is a walk-in clinic only. Please take your discharge instructions with you and arrive Friday through Friday for intake between 9am-11am or 1pm-3pm. Please arrive as early as possible within those time frames to ensure a spot for intake as it is first come first serve. ) [facility] ([facility] [Outside] [facility] [Primary Care Provider] - (Please contact for any medical needs or concerns) Exam Physical Exam Vital Signs: Temp Pulse Resp BP Pulse Ox O2 Del Method 97.5 F L 87 18 129/87 96 Room Air 04/06/24 07:30 04/06/24 07:30 04/06/24 07:30 04/06/24 07:30 04/06/24 07:30 04/06/24 07:30 Diagnostic Studies Completed and Pending Studies Labs on day of discharge: 04/06/24 06:32: POC Glucose 199, POC Glucose Comment Glu2: cleaned meter 04/06/24 01:53: POC Glucose 185, POC Glucose Comment Glu2: cleaned meter 04/05/24 20:37: POC Glucose 234 04/05/24 16:36: POC Glucose 202 04/05/24 11:21: POC Glucose 340 Documented By: Nigel Rdz MD 4 0842 Signed By: <Electronically signed by Nigel Rdz MD> 04/06/24 0925 [facility] Work Phone: 1(693) 317-869808-11-2024 Progress note Author Jose Carlos Lindquist [facility] April 04, 2024 11:26am Note Date/Time April 04, 2024 11 :26am [facility] [address] [place] [address] Psychiatry Progress Note Signed Patient: Mannie Michel MR#: [id number] : 1960 Acct:[id number] Age/Sex: 63 / M Adm Date: 4 Loc: Room: [address] [place] [address] Type : ADM IN Attending Dr: Jose Carlos Lindquist MD Copies to: ~ Date of Service: 04/04/2024 Subjective Subjective Narrative: Ordered thatMannie Michel reported that he is trying to be in a happy mood. He stated that he is trying not to think of suicide. He is not sleeping well but is try to get as much sleep as he can. MSE Appearance: grossly normal. Fair grooming and hygiene, calm, cooperative, engaged in the interview. Good eye contact. Normal psychomotor activity. Mental Status: mental status grossly normal Mood: depressed / anxious mood Affect: Euthymic mood laughing and joking on the unit Speech and Movement: speech and movement normal. Regular rate, rhythm, volume, and tone. Non pressured. Attitude: cooperative Thought Process: normal Thought Content: Denies paranoid or delusional thoughts. Denied hallucinations, no homicidality and no suicidality. Does not appear to be responding to internalstimuli. Insight: Fair Judgment: Improving Exam Physical Exam Vital Signs: Temp Pulse Resp BP Pulse Ox O2 Del Method 97.6 F 74 18 130/84 98 Room Air 04/04/24 07:28 04/04/24 07:28 04/04/24 07:28 04/04/24 07:28 04/04/24 07:28 04/04/24 07:28 Assessment/Plan Assessment/Plan (1) Major depressive disorder, recurrent, moderate: (2) Generalized anxiety disorder: Plan Patient reported depression and suicidal thoughts but objectively seems to be inbetter spirits CM to assess discharge needs. Patient encouraged to start making phone calls for custodial placement as likely discharge will be on Friday -Continue Buspirone, donepezil, quetiapine, trazodone, Celexa -Continue to monitor mental status -Monitor suicidal behaviors for safety of self (15-minute face check). -Encourage medication adherence. Risks, benefits, and alternatives of treatment explained -Recommend? attending groups and psychoeducation for building coping skills. -Risks, benefits and indications of medications were discussed with the patient.? -No abnormal movements noted on exam. AIMS is Zero. -Involve friends/family members to coordinate care and ensure appropriate outpatient appointments are scheduled prior to discharge. Documented By: Jose Carlos Lindquist MD 04/04/241124 Signed By: <Electronically signed by Jose Carlos Lindquist MD> 04/04/241125 [facility] Work Phone: 1(392) 923-440708-10-2024 Progress note Author Jose Carlos Lindquist [facility] April 03, 2024 11:03am Note Date/Time April 03, 2024 11 :03am [facility] [address] [place] [address] Psychiatry Progress Note Signed Patient: Mannie Michel MR#: [id number] : 1960 Acct:[id number] Age/Sex: 63 / M Adm Date: 4 Loc: 1S Room: [address] [place] [address] Type : ADM IN Attending Dr: Jose Carlos Lindquist MD Copies to: ~ Date of Service: 04/03/2024 Subjective Subjective Narrative: Mannie Michel reported that he is having a rough time. He claimed that he hadthoughts of killing himself last night. He denied any side effects with the current medication at this time. Patient objectively does not appear depressed or anxious he is social on the unit and does appear to be responding well to medication. I encouraged him to make phone calls for custodial and to start thinking about discharge. MSE Appearance: grossly normal. Fair grooming and hygiene, calm, cooperative, engaged in the interview. Good eye contact. Normal psychomotor activity. Mental Status: mental status grossly normal Mood: depressed / anxious mood Affect: Euthymic mood laughing and joking on the unit Speech and Movement: speech and movement normal. Regular rate, rhythm, volume, and tone. Non pressured. Attitude: cooperative Thought Process: normal Thought Content: Denies paranoid or delusional thoughts. Denied hallucinations, no homicidality and no suicidality. Does not appear to be responding to internalstimuli. Insight: Fair Judgment: Improving Exam Physical Exam Vital Signs: Temp Pulse Resp BP Pulse Ox O2 Del Method 98.3 F 74 16 129/76 96 Room Air 04/02/24 20:10 04/02/24 20:10 04/02/24 20:10 04/02/24 20:10 04/02/24 20:10 04/02/24 20:10 Assessment/Plan Assessment/Plan (1) Major depressive disorder, recurrent, moderate: (2) Generalized anxiety disorder: Plan Patient reported depression and suicidal thoughts but objectively seems to be inbetter spirits CM to assess discharge needs. Patient encouraged to start making phone calls for custodial placement -Continue Buspirone, donepezil, quetiapine, trazodone, Celexa -Continue to monitor mental status -Monitor suicidal behaviors for safety of self (15-minute face check). -Encourage medication adherence. Risks, benefits, and alternatives of treatment explained -Recommend? attending groups and psychoeducation for building coping skills. -Risks, benefits and indications of medications were discussed with the patient.? -No abnormal movements noted on exam. AIMS is Zero. -Involve friends/family members to coordinate care and ensure appropriate outpatient appointments are scheduled prior to discharge. Documented By: Jose Carlos Lindquist MD 04/03/24 1101 Signed By: <Electronically signed by Jose Carlos Lindquist MD> 04/03/24 1103 [facility] Work Phone: 1(708) 824-766808-09-2024 Progress note Author Jose Carlos Lindquist [facility] April 02, 2024 3:14pm Note Date/Time April 02, 2024 12: 39pm [facility] [address] [place] [address] Psychiatry Progress Note Signed Patient: Mannie Michel MR#: [id number] : 1960 Acct:[id number] Age/Sex: 63 / M Adm Date: 4 Loc: Room: [address] [place] [address] Type : ADM IN Attending Dr: Jose Carlos Lindquist MD Copies to: ~ Date of Service: 04/02/2024 Subjective Subjective Narrative: Mannie Michel is a 63 year old male?on Day 2 of hospitalization for depressionwith suicidal ideation/attempt. Today, pt presented as being quite pleased and talkative. However, the pt described his anxiety/depression as being much worse today and would rate its severity as a 8 or 9 out of 10. The pt stated that his anxiety and depression is as bad as it is because he still has no idea where he will be living and that he is angry at himself for making inappropriate commentsthat he cannot control. The pt described making a in poor taste remark and people becoming upset at him for this. The pt stated that he apologized and things are fine now but he is still upset at himself for this. The pt will be meeting with a special education case manager to go over his plans for future living. The pt was supposed to go to [place] to live with his daughter but he changed his mind. Thept has no family that is supportive of him that live nearby and states he has a girlfriend but she lives in [place]. Sleeping and eating- Pt stated that his sleep has been not so great because he doesn't have his CPAP machine. Pt has been eating well Attending group- Yes and states he enjoys it SI/HI- Not since arriving tolerating current meds- Tolerating medications well. Pt reports headaches alonghis entire forehead but does not believe them to e associated with medications MSE Appearance: grossly normal. Fair grooming and hygiene, calm, cooperative, engaged in the interview. Good eye contact. Normal psychomotor activity. Mental Status: mental status grossly normal Mood: depressed / anxious mood Affect: mood-incongruent affect Speech and Movement: speech and movement normal. Regular rate, rhythm, volume, and tone. Non pressured. Attitude: cooperative Thought Process: normal Thought Content: Denies paranoid or delusional thoughts. Denied hallucinations, no homicidality and no suicidality. Does not appear to be responding to internalstimuli. Insight: Fair Judgment: Improving Patient was personally seen by me on the day of the encounter. I reviewed the history and performed the fuentes elements of the physical examination. I formulated the plan of care and confirmed this with the medical student as noted below. Exam Physical Exam Vital Signs: Temp Pulse Resp BP Pulse Ox O2 Del Method 97.6 F 70 18 119/78 96 Room Air 04/02/24 07:30 04/02/24 07:30 04/02/24 07:30 04/02/24 07:30 04/02/24 07:30 04/02/24 07:30 Assessment/Plan Assessment/Plan (1) Major depressive disorder, recurrent, moderate: (2) Generalized anxiety disorder: Plan Plan: Patient presenting due to depression and suicidal ideation/attempt. CM to assess discharge needs -Continue Buspirone, donepezil, quetiapine, trazodone, Celexa -Continue to monitor mental status -Monitor suicidal behaviors for safety of self (15-minute face check). -Encourage medication adherence. Risks, benefits, and alternatives of treatment explained -Recommend? attending groups and psychoeducation for building coping skills. -Risks, benefits and indications of medications were discussed with the patient.? -No abnormal movements noted on exam. AIMS is Zero. -Involve friends/family members to coordinate care and ensure appropriate outpatient appointments are scheduled prior to discharge. Documented By: Jose Carlos Lindquist MD 04/02/24 1226 Signed By: <Electronically signed by Jose Carlos Lindquist MD> 04/02/24 9839 [facility] Work Phone: 1(960) 925-158708-08-2024 History and physical note Author Jose Carlos Lindquist [facility] April 01, 2024 12:57pm Note Date/Time April 01, 2024 12: 39pm [facility] [address] [place] [address] Psychiatry H&P Signed Patient: Mannie Michel MR#: [id number] : 1960 Acct:[id number] Age/Sex: 63 / M Adm Date: 4 Loc: 1S Room: 5M0495-1 Type: ADM IN Attending Dr: Jose Carlos Lindquist MD Copies to: Jose Carlos Lindquist MD [facility]~ Date of Service: 04/01/2024 HPI History of Present Illness History of present illness: Mannie Michel is a 63 year old male?with a reported history of?depression, anxiety, dementia, DM2, HLD, HTN, previous NM, RLS?who presents for inpatient treatment due to depression with suicidal ideation/attempt. Reportedly, the patient called EMS while attempting to walk out into oncoming traffic. Pt was walking directly on the side of the road and threatened to continue onto the road. Police and EMS collected Mannie and brought him to the ED where he was ultimately transferred back to the psychiatric unit. At the time of the interview, he presented as being pleasant and talkative. The pt stated that he was doing better after his discharge but then found out that he would be losing his residence. He stated that they gave him only 30 days to move all his stuff out or they will be confiscated. After this, the pt went around to family members to see if he would be able to stay with one of them. The pt reported that none of them were willing to help him out and this ultimately put him into a depressed state of mind. The pt mentioned before that he does not get along with a lot of his family as they have not been supportive of the pt's loss of his and his ongoing medical issues. The pt stated that the combination of not having a place to live with the lack of support system really pushed him into making a poor choice. The pt claimed that he called EMS and then attempted to walk onto the road before police noticed him and rounded him up before EMS arrived. The pt states he also has been having bad headaches and wants to work with his counselor to find a place for him to stay after his next discharge. Past psych history: depression, anxiety, dementia Past hospitalizations: Previous inpatient psychiatric hospitalization in November and last week for suicidal ideation Past suicide attempts: Patient reports previous suicide attempt of trying to jump into oncoming traffic Previous medications: Buspirone, citalopram, quetiapine, trazodone Alcohol and drug use: Patient denies EtOH use, former smoker, currently uses marijuana once weekly Living: Is being kicked out of current house. Was going to go live with kleber Guido but decided to stay here. Pt currently has no place to stay. Employment: unemployed Review of Systems Constitutional: Pt denies fatigue, malaise. Neuro: Denies dizziness/lightheadedness. Denies TBI, seizure, memory loss. Denies numbness/tingling in extremities HEENT: Reports headaches but denies vision/hearing changes Pulmonary: Denies SOB, dyspnea, cough, wheezing. Cardiac: Denies chest pain/pressure. Denies edema, palpitations. GI: Denies abdominal pain, heartburn, N/V. Denies constipation and diarrhea : Denies dysuria, hematuria, polyuria. ? Physical exam General: not in any acute distress Skin: intact HEENT: head atraumatic, face symmetrical. Pulm: ?Breathing normally without excessive effort Cardio: Regular rate and rhythm Abdomen: Normal inspection Musculoskeletal: Moves all extremities, normal strength all extremities except right leg. Neuro: Pt alert, oriented x3. Gait normal. ? CNI: Intact, normal olfaction ? CNII: Visual alex intact ? ? ?CNIII,IV,: EOM intact, no nystagmus. ? ? ?CNV: Sensation intact to light touch. ? ? ?CNVII: Raises eyebrows, smile/frown, puff out cheeks symmetrically. ? ? ?CNVIII: Hearing limited in left ear ? ? ?CNIX,X: Voice normal, soft palate elevation normal, symmetrical. ? ? ?CNXI: Shoulder shrug strong, equal bilaterally. ? ? ?CNXII: Tongue protrusion midline MSE Appearance: grossly normal. Fair grooming and hygiene, calm, cooperative, engaged in the interview. Good eye contact. Normal psychomotor activity. Mental Status: mental status grossly normal Mood: depressed / anxious mood and euthymic at others Affect: dysphoric / constricted / reactive / mood-congruent affect Speech and Movement: speech and movement normal / slow / rapid and speech clear / slurred / garbled. Regular rate, rhythm, volume, and tone. Non pressured. Attitude: cooperative Thought Process: normal Thought Content: Denies paranoid or delusional thoughts. Confirms hallucinationsthat are from relatives encouraging him, no homicidality and no suicidality. Does not appear to be responding to internal stimuli. Insight: limited , emerging Judgment: limited Patient was personally seen by me on the day of the encounter. I reviewed the history and performed the fuentes elements of the physical examination. I formulated the plan of care and confirmed this with the medical student as notedbelow. Patient presenting due to concern for depression and suicidal thoughts. He reported that he was trying to get hit by traffic. He stated that the main stressor was being evicted from his house. He reported that he will have to find a new place to go. [facility] Medical History GERD (gastroesophageal reflux disease) Obesity (BMI 30-39.9) CAD (coronary artery disease) Diabetic neuropathy SUNIL on CPAP Restless legs syndrome (RLS) Benign paroxysmal positional vertigo DKA (diabetic ketoacidosis) Major depressive disorder, recurrent, moderate Generalized anxiety disorder Gastric erosion Esophagitis Former smoker Diabetes Hyperlipidemia Myocardial infarction Hypertension Surgical History History of esophagogastroduodenoscopy (EGD) H/O endoscopy History of liver biopsy Stented coronary artery Family History Mother Heart trouble Maternal Grandfather Heart trouble Social History Smoking Status: Never smoker Substance Use Type: Alcohol and Marijuana Substance Abuse Comment: last used 03/23/24 Meds Medications and Allergies Allergies codeine Allergy (Verified 03/31/24 12:57) dizzy latex Allergy (Verified 03/31/24 12:57) Rash Home Medications atorvastatin 80 mg tablet 80 mg PO HS 07/07/18 [History Confirmed 03/31/24] insulin aspart U-100 100 unit/mL (3 mL) subcutaneous pen 3 units subcut QID 07/07/18 [History Confirmed 03/31/24] insulin glargine 100 unit/mL (3 mL) subcutaneous pen 35 unit subcut BID 07/07/18[History Confirmed 03/31/24] metformin 500 mg tablet 1,000 mg PO BID 07/07/18 [History Confirmed 03/31/24] clopidogrel 75 mg tablet 75 mg PO DAILY 06/15/20 [History Confirmed 03/31/24] furosemide 20 mg tablet 20 mg PO DAILY 06/15/20 [History Confirmed 03/31/24] nitroglycerin 0.4 mg sublingual tablet 0.4 mg sublingual Q5M PRN Chest Pain 06/15/20 [History Confirmed 03/31/24] citalopram 40 mg tablet 40 mg PO DAILY 06/21/22 [History Confirmed 03/31/24] dulaglutide 3 mg/0.5 mL subcutaneous pen injector (Trulicity) 3 mg subcut QWEEK 06/21/22 [History Confirmed 03/31/24] fluticasone propionate 50 mcg/actuation nasal spray,suspension 2 spray intranasal DAILY 06/21/22 [History Confirmed 03/31/24] metoprolol tartrate 50 mg tablet 50 mg PO BID 06/21/22 [History Confirmed 03/31/24] pantoprazole 40 mg tablet,delayed release 40 mg PO DAILY 06/21/22 [History Confirmed 03/31/24] quetiapine 50 mg tablet 50 mg PO QHS 06/21/22 [History Confirmed 03/31/24] ropinirole 0.5 mg tablet 0.5 mg PO QHS 06/21/22 [History Confirmed 03/31/24] blood sugar diagnostic #100 ea 03/28/23 [Rx Confirmed 03/31/24] blood-glucose meter #1 ea 03/28/23 [Rx Confirmed 03/31/24] lancets #100 ea 03/28/23 [Rx Confirmed 03/31/24] donepezil 10 mg tablet 10 mg PO DAILY 12/11/23 [History Confirmed 03/31/24] insulin aspart U-100 100 unit/mL (3 mL) subcutaneous pen (Novolog FlexPen U-100 Insulin aspart) See Protocol subcut TID.WM.HS.2A #0 mL 12/11/23 [Rx Confirmed 03/31/24] buspirone 5 mg tablet 5 mg PO BID 15 days #30 tabs 12/14/23 [Rx Confirmed 03/31/24] trazodone 50 mg tablet 50 mg PO QHS PRN Insomnia 15 days #15 tabs 12/15/23 [Rx Confirmed 03/31/24] gabapentin 600 mg tablet 1,200 mg PO TID 01/05/24 [History Confirmed 03/31/24] famotidine 20 mg tablet 20 mg PO DAILY 03/24/24 [History Confirmed 03/31/24] primidone 125 mg tablet 125 mg PO TID 03/24/24 [History Confirmed 03/31/24] Exam Physical Exam Vital Signs: Temp Pulse Resp BP Pulse Ox O2 Del Method 98 F 65 18 124/77 96 Room Air 04/01/24 07:30 04/01/24 07:30 03/31/24 18:00 04/01/24 07:30 04/01/24 07:30 04/01/24 07:30 Results - Psychiatry Labs 03/31/24 13:10 03/31/24 13:10 Psychiatry Labs: 03/31/24 03/31/24 13:06 13:10 RBC 5.20 Hgb 14.6 Hct 43.6 MCV 83.8 MCH 28.1 MCHC 33.5 RDW 13.8 Plt Count 173 MPV 9.3 Sodium 137 Potassium 4.1 Chloride 102 Carbon Dioxide 25.5 Anion Gap 13.6 BUN 13 Creatinine 1.06 Calcium 8.1 L Total Bilirubin 0.3 AST 38 ALT 56 H Alkaline Phosphatase 93 Total Protein 6.0 L Albumin 3.6 Urine Color Light-yellow Urine Appearance Clear Urine pH 5.0 Ur Specific [place] 1.019 Urine Protein Negative Urine Glucose (UA) >=1000 H Urine Ketones Negative Urine Occult Blood Negative Urine Nitrite Negative Ur Leukocyte Esterase Negative Assessment/Plan (1) Major depressive disorder, recurrent, moderate: (2) Generalized anxiety disorder: Plan Plan Patient presenting due to depression along with suicidal ideation/attempt. Continue Buspirone donepezil quetiapine trazodone, Celexa Continue to monitor mental status Monitor suicidal behaviors for safety of self (15-minute face check). Encourage medication adherence. Risks, benefits, and alternatives of treatment explained Recommend? attending groups and psychoeducation for building coping skills. Risks, benefits and indications of medications were discussed with the patient.? Involve friends/family members to coordinate care and ensure appropriate outpatient appointments are scheduled prior to discharge. Documented By: Jose Carlos Lindquist MD 04/01/2415 Signed By: <Electronically signed by Jose Carlos Lindquist MD> 04/01/[address] [place] [address] Work Phone: 1(496) 495-851108-03-2024 Progress note Author Nigel nieto [facility] March 27, 2024 7:52am Note Date/Time March 27, 2024 7:[address] [facility] [address] [place] [address] Psychiatry Progress Note Signed Patient: Mannie Michel MR#: [id number] : 1960 Acct:[id number] Age/Sex: 63 / M Adm Date: 4 Loc: Room: [address] [place] [address] Type : ADM IN Attending Dr: Nigel Rdz MD Copies to: ~ Date of Service: 03/27/2024 Subjective Subjective Narrative: Mood has been improving since admission. We discussed importance of med compliance. Anxiety is moderate in intensity with attempted utilization of coping skills. He denies SI/HI and verbalized the intent to notify staff if he has such thoughts. His symptoms have been improving and his affect is becoming brighter. He continues to be compliant with prescribed medications and is visible within the unit milieu. He alluded to psychosocial stressors being the primary issue that he is struggling with. He described staff as supportive and non judgmental He has no hx of recent attempts, and has been future oriented, participated in group activities, articulated needs appropriately, and displayed no self-harm behaviors. Imminent risk is low given factors noted above. Further inpatient hospitalization unlikely to mitigate suicide risk, and pt agrees to f/u with outpatient psych care. All lab results discussed with patient. We also discussedprognosis of illness and importance of outpatient CBT. He agreed to continue thecurrent medications regimen. Risks, benefits, and indications of medications were discussed. He verbalized understanding. Overall, he has a positive mood and attitude towards life. Acute suicide risk assessment was low. His modifiable risk factors including anxiety, depression were managed with current medication. He did not report anysuicidality today and no suicidality behavior during his hospitalization. He has been attending groups and is motivated for outpatient treatment He has somechronic risk factors due to his previous hospitalizations and suicide attempts but said he is in a much better place compared to the time of admission. Appearance: dressed casually Mental Status: mental status grossly normal Mood: Euthymic mood Affect: Normal affect Speech and Movement: speech and movement normal and speech clear Attitude: cooperative Thought Process: normal Thought Content: Denied hallucinations, no homicidality and no suicidality Insight: fair Judgment: fair Impulse control: fair Exam Physical Exam Vital Signs: Temp Pulse Resp BP Pulse Ox O2 Del Method 97.6 F 71 18 106/70 98 Room Air 03/27/24 07:30 03/27/24 07:30 03/27/24 07:30 03/27/24 07:30 03/27/24 07:30 03/27/24 07:30 Objective Labs Labs: Abnormal Labs 03/26/24 03/26/24 15:24 20:15 POC Glucose 400 H* 405 H* Assessment/Plan Assessment/Plan (1) Depression with suicidal ideation: Plan Patient reports feeling better and denied any SI/HI. He said meds are helping. Anticipate discharge tomorrow. Continue Buspirone, Citalopram, Seroquel, Aricept, Pepsid, Lasix Continue to monitor mental status Monitor suicidal behaviors for safety of self (15-minute face check). Encourage medication adherence. Risks, benefits, and alternatives of treatment explained Recommend attending groups and psychoeducation for building coping skills. Risks, benefits and indications of medications were discussed with the patient. Involve friends/family members to coordinate care and ensure appropriate outpatient appointments are scheduled prior to discharge. Documented By: Nigel Rdz MD [id number] Signed By: <Electronically signed by Nigel Rdz MD> 03/27/24 0752 [facility] Work Phone: 1(524) 295-568808-02-2024 Progress note Author Nigel nieto [facility] March 26, 2024 2:19pm Note Date/Time March 26, 2024 10: 57am [facility] [address] [place] [address] Psychiatry Progress Note Signed Patient: Mannie Michel MR#: [id number] : 1960 Acct:[id number] Age/Sex: 63 / M Adm Date: 4 Loc: Room: [address] [place] [address] Type : ADM IN Attending Dr: Nigel Rdz MD Copies to: ~ Date of Service: 03/26/2024 Subjective Subjective Narrative: Narrative: Mr. Mannie Michel is a 63 year old male on day 2 of hospitalization for depression with suicidal ideation. Today, pt presented as being pleasant and talkative. Pt stated that he has been improving a lot since his admission and feels that the group sessions have benefitted him the most. Pt was cooperative and in better spirits but states he stil has moments where he feels down. Mentioned that he has also been having some pain in his knees that worsens when he sits or lays down. Pt stated that hewill be going to live with his daughter in [place] after discharge to get away from unsupportive family members he has currently around him. Pt occasionally reports having auditory and visual hallucinations of family members like his . States that the family members encourage him and are overall helpful to his mental wellbeing. Pt stated that he feels like he is almost a medium . Sleeping and eating: Pt stated that he has been sleeping and eating well Attending group: Pt states that he has been participating in group sessions and these are helping him a lot SI/HI: Reported having thoughts about hurting himself but not others tolerating current meds: Has had no problems tolerating medications Patient was personally seen by me on the day of the encounter. I reviewed the history and performed the fuentes elements of the assessment. I formulated the planof care and confirmed this with the student as noted below MSE Appearance: grossly normal. Fair grooming and hygiene, calm, cooperative, engaged in the interview. Good eye contact. Mental Status: mental status grossly normal Mood: euthymic at times but dysthymic in others Affect: mood-congruent affect Speech and Movement: speech and movement normal. Regular rate, rhythm, volume, and tone. Non pressured. Attitude: cooperative Thought Process: normal Thought Content:Denies paranoid or delusional thoughts. Confirms visual and auditory hallucinations and suicidality, no homicidality. Insight: fair Judgment: improving Exam Physical Exam Vital Signs: Temp Pulse Resp BP Pulse Ox O2 Del Method 98.0 F 75 16 122/90 93 L Room Air 03/25/24 19:57 03/25/24 19:57 03/25/24 19:57 03/25/24 19:57 03/25/24 19:57 03/25/24 19:57 Objective Labs Labs: Abnormal Labs 03/25/24 03/25/24 03/25/24 06:18 11:19 16:09 POC Glucose 507 H* 445 H* Hemoglobin A1c 13.3 H 03/25/24 20:04 POC Glucose 426 H* Hemoglobin A1c Assessment/Plan Assessment/Plan (1) Depression with suicidal ideation: Plan Patient presenting due to concern for depression with suicidal ideation Continue Buspirone, Citalopram, Seroquel, Aricept, Pepsid, Lasix Continue to monitor mental status Monitor suicidal behaviors for safety of self (15-minute face check). Encourage medication adherence. Risks, benefits, and alternatives of treatment explained Recommend attending groups and psychoeducation for building coping skills. Risks, benefits and indications of medications were discussed with the patient. Involve friends/family members to coordinate care and ensure appropriate outpatient appointments are scheduled prior to discharge. Documented By: Nigel Rdz MD [id number] Signed By: <Electronically signed by Nigel Rdz MD> 03/26/24 1419 [facility] Work Phone: 1(498) 991-860508-01-2024 History and physical note Author Nigel nieto [facility] March 25, 2024 6:58am Note Date/Time March 24, 2024 2:[address] [facility] [address] [place] [address] Psychiatry H&P Signed Patient: Mannie Michel MR#: [id number] : 1960 Acct:[id number] Age/Sex: 63 / M Adm Date: 4 Loc: Room: [address] [place] [address] Type: ADM IN Attending Dr: Nigel Rdz MD Copies to: MD Oma Cerna DO, [facility]~ Date of Service: 03/25/2024 HPI History of Present Illness History of present illness: Mr. Michel is a 63 year old male?with a reported history of depression, anxiety, dementia, DM2, HLD, HTN, previous NM, RLS?who presents for inpatient treatment due to depression with suicidal ideation. Reportedly, patient presented to the ER via EMS for possible syncopal episode. Patient was previously seen in emergency department for high blood sugar. He was treated forhyperglycemia with 1 L fluid, 10 units insulin with improvement in blood sugar. Chemistries reveal low sodium of 128 which is apparently patient's normal. Patient was admitted to psychiatric facility for depression with suicidal ideation that was apparent during emergency department stay. Patient was personally seen by me on the day of the encounter. I reviewed the history and performed the fuentes elements of the assessment. I formulated the planof care and confirmed this with the resident as noted below At the time of the interview, he presented as depressed. He states that he wentto the emergency department because he could tell his blood sugars were high. He says when his blood sugars are high he has fainting spells and confusion. ? Patient says he does not remember what he said in the emergency department but does remember that he is quite confused and endorsed feelings of not wanting to be here. Patient says he frequently has feelings of not wanting to be here anymore but does not have an apparent plan. He is increasingly saddened by the of his in November 2023 as long as his mother prior. Heendorses visual and auditory hallucinations. He states that he sees family members that are there including his and mother. He states these for membrane members tell him to do things such as not to hurt himself and when he is in the grocery store do not buy certain items because they are bad for his health. He says the de[arted family member's voices are nonthreatening and are supposed to be there to guide him. He endorses homicidal ideation for other living family members including his brother and states that the he feels this way because they do not want me. He states that he smokes marijuana mainly with his brother and he feels that he is a bad influence for his wellbeing. He would like to moved to another location so that he can get away from bad influences per his report. Past psych history: depression, anxiety, dementia Past hospitalizations: Previous inpatient psychiatric hospitalization in November of this year for suicidal ideation Past suicide attempts: Patient denies previous suicidal attempts Previous medications: Buspirone, citalopram, quetiapine, trazodone Alcohol and drug use: Patient denies EtOH use, former smoker, currently uses marijuana once weekly Living: homeless Employment: unemployed Review of symptoms: Constitutional: Denies chills and Denies fever(s) Eyes: Denies change in vision ENT: Denies abnormal hearing Cardiovascular: Denies chest pain Respiratory: Denies chest congestion and Denies cough Gastrointestinal: Denies change in bowel habits Genitourinary: Denies dysuria Musculoskeletal: Headache Integumentary/Breasts: Denies dry skin Neurologic: Denies abnormal gait and Denies abnormal movements Psychiatric: Reports depression and suicidal ideation Physical exam: Const: cooperative Nutritional Appearance: average body habitus Orientation: alert, awake and oriented x3 HEENT: Head normal to inspection, hearing grossly normal bilaterally, external nose normal, face symmetric Eyes: appearance normal, both eyes and all related structures, sclerae normal Neck: normal visual inspection and full ROM Resp: normal respiratory effort, able to speak in complete sentences and symmetric chest movement Cardio: regular rate GI: normal to inspection and non-distended : deferred Skin: no rashes or lesions noted Neuro:?Normal olfaction CNI: normal olfaction CNII: Visual alex intact, CNIII,IV,: EOM intact, no nystagmus. Pupils equal, round, reactive to light and accommodation, CNV: Sensation intact to light touch, CNVII: Raises eyebrows, smile/frown, puff out cheeks symmetrically, CNVIII: Hearing intact bilaterally, CNIX,X: Voice normal, soft palate elevation normal, symmetrical, CNXI: Shoulder shrug strong, MSE Appearance: grossly normal. Fair grooming and hygiene, calm, cooperative, engaged in the interview. Good eye contact. slowed psychomotor activity. Mental Status: mental status grossly normal Mood: depressed Affect: mood-congruent affect Speech and Movement: speech and movement normal. Regular rate, rhythm, volume, and tone. Non pressured. Attitude: cooperative Thought Process: slowed Thought Content: Reports visual and auditory hallucinations of previous departed family members, endorses suicidal ideation. Insight: limited Judgment: limited [facility] Medical History (Updated 03/24/24 @ 17:14 by Carolina Soriano APRN) GERD (gastroesophageal reflux disease) Obesity (BMI 30-39.9) CAD (coronary artery disease) Diabetic neuropathy SUNIL on CPAP Restless legs syndrome (RLS) Benign paroxysmal positional vertigo DKA (diabetic ketoacidosis) Major depressive disorder, recurrent, moderate Generalized anxiety disorder Gastric erosion Esophagitis Former smoker Diabetes Hyperlipidemia Myocardial infarction Hypertension Surgical History History of esophagogastroduodenoscopy (EGD) H/O endoscopy History of liver biopsy Stented coronary artery Family History Mother Heart trouble Maternal Grandfather Heart trouble Social History Smoking Status: Former smoker Tobacco Type: cigarettes Substance Use Type: Marijuana Substance Abuse Comment: last used 03/23/24 Meds Medications and Allergies Allergies codeine Allergy (Verified 03/24/24 01:23) dizzy latex Allergy (Verified 03/24/24 01:23) Rash Home Medications atorvastatin 80 mg tablet 80 mg PO HS 07/07/18 [History Confirmed 03/24/24] insulin aspart U-100 100 unit/mL (3 mL) subcutaneous pen 3 units subcut QID 07/07/18 [History Confirmed 01/05/24] insulin glargine 100 unit/mL (3 mL) subcutaneous pen 35 unit subcut BID 07/07/18[History Confirmed 03/24/24] metformin 500 mg tablet 1,000 mg PO BID 07/07/18 [History Confirmed 03/24/24] clopidogrel 75 mg tablet 75 mg PO DAILY 06/15/20 [History Confirmed 03/24/24] furosemide 20 mg tablet 20 mg PO DAILY 06/15/20 [History Confirmed 03/24/24] nitroglycerin 0.4 mg sublingual tablet 0.4 mg sublingual Q5M PRN Chest Pain 06/15/20 [History Confirmed 01/05/24] citalopram 40 mg tablet 40 mg PO DAILY 06/21/22 [History Confirmed 03/24/24] dulaglutide 3 mg/0.5 mL subcutaneous pen injector (Trulicity) 3 mg subcut QWEEK 06/21/22 [History Confirmed 03/24/24] fluticasone propionate 50 mcg/actuation nasal spray,suspension 2 spray intranasal DAILY 06/21/22 [History Confirmed 03/24/24] metoprolol tartrate 50 mg tablet 50 mg PO BID 06/21/22 [History Confirmed 03/24/24] pantoprazole 40 mg tablet,delayed release 40 mg PO DAILY 06/21/22 [History Confirmed 03/24/24] quetiapine 50 mg tablet 50 mg PO QHS 06/21/22 [History Confirmed 03/24/24] ropinirole 0.5 mg tablet 0.5 mg PO QHS 06/21/22 [History Confirmed 03/24/24] blood sugar diagnostic #100 ea 03/28/23 [Rx Confirmed 01/05/24] blood-glucose meter #1 ea 03/28/23 [Rx Confirmed 01/05/24] lancets #100 ea 03/28/23 [Rx Confirmed 01/05/24] donepezil 10 mg tablet 10 mg PO DAILY 12/11/23 [History Confirmed 03/24/24] insulin aspart U-100 100 unit/mL (3 mL) subcutaneous pen (Novolog FlexPen U-100 Insulin aspart) See Protocol subcut TID.WM.HS.2A #0 mL 12/11/23 [Rx Confirmed 03/24/24] buspirone 5 mg tablet 5 mg PO BID 15 days #30 tabs 12/14/23 [Rx Confirmed 03/24/24] trazodone 50 mg tablet 50 mg PO QHS PRN Insomnia 15 days #15 tabs 12/15/23 [Rx Confirmed 03/24/24] gabapentin 600 mg tablet 1,200 mg PO TID 01/05/24 [History Confirmed 03/24/24] famotidine 20 mg tablet 20 mg PO DAILY 03/24/24 [History Confirmed 03/24/24] primidone 125 mg tablet 125 mg PO TID 03/24/24 [History Confirmed 03/24/24] Exam Physical Exam Vital Signs: Temp Pulse Resp BP Pulse Ox O2 Del Method 98.1 F 79 18 134/87 95 Room Air 03/24/24 11:30 03/24/24 11:30 03/24/24 09:21 03/24/24 11:30 03/24/24 11:30 03/24/24 11:30 Results - Psychiatry Labs 03/24/24 01:29 03/24/24 01:29 Psychiatry Labs: 03/24/24 03/24/24 01:29 02:12 RBC 5.61 H Hgb 15.8 Hct 46.5 MCV 82.9 L MCH 28.1 MCHC 33.9 RDW 14.0 Plt Count 205 MPV 9.9 Sodium 128 L Potassium 4.1 Chloride 92 L Carbon Dioxide 25.3 Anion Gap 14.8 BUN 20 Creatinine 0.98 Calcium 8.2 L Total Bilirubin 0.3 AST 30 ALT 41 Alkaline Phosphatase 86 Total Protein 6.7 Albumin 4.0 Urine Color Colorless Urine Appearance Clear Urine pH 5.5 Ur Specific [place] 1.027 Urine Protein Negative Urine Glucose (UA) >=1000 H Urine Ketones Negative Urine Occult Blood Negative Urine Nitrite Negative Ur Leukocyte Esterase Negative Assessment/Plan (1) Depression with suicidal ideation: Plan Patient presenting due to concern for depression with suicidal ideation Continue Buspirone, citalopram, Seroquel Continue to monitor mental status Monitor suicidal behaviors for safety of self (15-minute face check). Encourage medication adherence. Risks, benefits, and alternatives of treatment explained Recommend attending groups and psychoeducation for building coping skills. Risks, benefits and indications of medications were discussed with the patient. Involve friends/family members to coordinate care and ensure appropriate outpatient appointments are scheduled prior to discharge. Documented By: Nigel Rdz MD [id number] Signed By: <Electronically signed by Nigel Rdz MD> 03/25/24 0658 <Electronically signed by DO RITA Linares> 03/24/[address] [place] [address] Ctr Work Phone: [phone] 777-809207-31-2024 Consult note Author Gt Martinez [facility] March 24, 2024 8:12pm Note Date/Time March 24, 2024 4:[address] [facility] [address] [place] [address] Hospitalist Consult Note Signed Patient: Mannie Michel MR#: [id number] : 1960 Acct:[id number] Age/Sex: 63 / M Adm Date: 4 Loc: Room: [address] [place] [address] Type: ADM IN Attending Dr: Nigel Rdz MD Copies to: Nigel Rdz MD [facility] NICOLE Blair, ~ HPI DATE OF CONSULTATION: 03/24/24 REQUESTING PROVIDER: Nigel Rdz Consult Narrative Reason for Consult: Hyperglycemia with diabetes HPI: 63-year-old male past medical history significant for sleep apnea uses CPAP, diabetes with no apathy, CAD history of PCI with stent and NM, hyperlipidemia, hypertension, GERD/gastritis/esophagitis, RLS, depression. Presented to the emergency room today via squad for concerns of pre-syncopal episode. He reported striking his head. Indicates etiology for this is hyperglycemia as this has happened before. CT head and cervical spine done in the emergency department nonacute. Admitted to the inpatient psychiatric unit for further management and care after cleared medically. Hospitalist team is now consulted for diabetes with hyperglycemia. The patient was in the emergency room this morning and it appears he may not have received insulin a.m. dosing Patient seen and examined. He is cooperative and ambulates with assistance of walker from the common area to his room for our conversation and exam. Endorseschronic back pain. Denies chest pain or palpitations. No cough, dyspnea, or pain with inspiration. No constipation or diarrhea, nausea or vomiting. Chronic stomach problems otherwise. No dysuria or retention. No headache or dizziness. No fevers or chills. He does report poor vision secondary to elevated glucoses Review of Systems Review of Systems All other systems reviewed & are negative unless noted below or in HPI [facility] Medical History (Updated 03/24/24 @ 17:14 by Carolina Soriano APRN) GERD (gastroesophageal reflux disease) Obesity (BMI 30-39.9) CAD (coronary artery disease) Diabetic neuropathy SUNIL on CPAP Restless legs syndrome (RLS) Benign paroxysmal positional vertigo DKA (diabetic ketoacidosis) Major depressive disorder, recurrent, moderate Generalized anxiety disorder Gastric erosion Esophagitis Former smoker Diabetes Hyperlipidemia Myocardial infarction Hypertension Surgical History History of esophagogastroduodenoscopy (EGD) H/O endoscopy History of liver biopsy Stented coronary artery Family History Mother Heart trouble Maternal Grandfather Heart trouble Social History Smoking Status: Former smoker Tobacco Type: cigarettes Substance Use Type: Marijuana Substance Abuse Comment: last used 03/23/24 Meds Medications and Allergies Allergies codeine Allergy (Verified 03/24/24 01:23) dizzy latex Allergy (Verified 03/24/24 01:23) Rash Home Medications atorvastatin 80 mg tablet 80 mg PO HS 07/07/18 [History Confirmed 03/24/24] insulin aspart U-100 100 unit/mL (3 mL) subcutaneous pen 3 units subcut QID 07/07/18 [History Confirmed 01/05/24] insulin glargine 100 unit/mL (3 mL) subcutaneous pen 35 unit subcut BID 07/07/18[History Confirmed 03/24/24] metformin 500 mg tablet 1,000 mg PO BID 07/07/18 [History Confirmed 03/24/24] clopidogrel 75 mg tablet 75 mg PO DAILY 06/15/20 [History Confirmed 03/24/24] furosemide 20 mg tablet 20 mg PO DAILY 06/15/20 [History Confirmed 03/24/24] nitroglycerin 0.4 mg sublingual tablet 0.4 mg sublingual Q5M PRN Chest Pain 06/15/20 [History Confirmed 01/05/24] citalopram 40 mg tablet 40 mg PO DAILY 06/21/22 [History Confirmed 03/24/24] dulaglutide 3 mg/0.5 mL subcutaneous pen injector (Trulicity) 3 mg subcut QWEEK 06/21/22 [History Confirmed 03/24/24] fluticasone propionate 50 mcg/actuation nasal spray,suspension 2 spray intranasal DAILY 06/21/22 [History Confirmed 03/24/24] metoprolol tartrate 50 mg tablet 50 mg PO BID 06/21/22 [History Confirmed 03/24/24] pantoprazole 40 mg tablet,delayed release 40 mg PO DAILY 06/21/22 [History Confirmed 03/24/24] quetiapine 50 mg tablet 50 mg PO QHS 06/21/22 [History Confirmed 03/24/24] ropinirole 0.5 mg tablet 0.5 mg PO QHS 06/21/22 [History Confirmed 03/24/24] blood sugar diagnostic #100 ea 03/28/23 [Rx Confirmed 01/05/24] blood-glucose meter #1 ea 03/28/23 [Rx Confirmed 01/05/24] lancets #100 ea 03/28/23 [Rx Confirmed 01/05/24] donepezil 10 mg tablet 10 mg PO DAILY 12/11/23 [History Confirmed 03/24/24] insulin aspart U-100 100 unit/mL (3 mL) subcutaneous pen (Novolog FlexPen U-100 Insulin aspart) See Protocol subcut TID.WM.HS.2A #0 mL 12/11/23 [Rx Confirmed 03/24/24] buspirone 5 mg tablet 5 mg PO BID 15 days #30 tabs 12/14/23 [Rx Confirmed 03/24/24] trazodone 50 mg tablet 50 mg PO QHS PRN Insomnia 15 days #15 tabs 12/15/23 [Rx Confirmed 03/24/24] gabapentin 600 mg tablet 1,200 mg PO TID 01/05/24 [History Confirmed 03/24/24] famotidine 20 mg tablet 20 mg PO DAILY 03/24/24 [History Confirmed 03/24/24] primidone 125 mg tablet 125 mg PO TID 03/24/24 [History Confirmed 03/24/24] Active Medications: Active Medications Generic Name Dose Route Start Last Admin Trade Name Freq PRN Reason Stop Dose Admin Acetaminophen 500 mg 03/24/24 10:53 Acetaminophen 500 Mg Tablet PO 03/24/25 10:52 Q6H PRN Fever or Pain Al Hydrox/Mg Hydrox/Simethicone 30 ml 03/24/24 10:53 Mag Hydrox/Al Hydrox/Simeth 30 Ml Udc PO 03/24/25 10:52 Q6H PRN Indigestion Atorvastatin Calcium 80 mg 03/24/24 22:00 Atorvastatin 80 Mg Tablet PO 03/24/25 21:59 HS RIYA Benztropine Mesylate 0.5 mg 03/24/24 10:53 Benztropine 2 Mg/2 Ml Ampul IM 03/24/25 10:52 Q6H PRN Dystonia Benztropine Mesylate 0.5 mg 03/24/24 10:53 Benztropine 0.5 Mg Tablet PO 03/24/25 10:52 Q6H PRN Dystonia Buspirone HCl 5 mg 03/24/24 21:00 Buspirone 5 Mg Tablet PO 03/24/25 20:59 BID RIYA Citalopram Hydrobromide 40 mg 03/25/24 09:00 Citalopram 40 Mg Tablet PO 03/25/25 08:59 DAILY RIYA Clopidogrel Bisulfate 75 mg 03/25/24 09:00 Clopidogrel Bisulfate 75 Mg Tablet PO 03/25/25 08:59 DAILY RIYA Donepezil HCl 10 mg 03/25/24 09:00 Donepezil 10 Mg Tablet PO 03/25/25 08:59 DAILY [facility] Famotidine 20 mg 03/25/24 09:00 Famotidine 20 Mg Tablet PO 03/25/25 08:59 DAILY [facility] Fluticasone Propionate 2 spray 03/25/24 09:00 Fluticasone Propionate Macy 120 Macy/16 Gm Bottle INTRANASAL 03/25/25 08:59 DAILY [facility] Furosemide 20 mg 03/25/24 09:00 Furosemide 20 Mg Tablet PO 03/25/25 08:59 DAILY [facility] Gabapentin 1,200 mg 03/24/24 14:00 03/24/24 14:39 Gabapentin 600 Mg Tablet PO 03/24/25 13:59 1,200 mg TID [facility] Administration Hydroxyzine Pamoate 50 mg 03/24/24 10:53 Hydroxyzine Pamoate 50 Mg Capsule PO 03/24/25 10:52 Q6H PRN Anxiety Ibuprofen 400 mg 03/24/24 10:53 Ibuprofen 400 Mg Tablet PO 03/24/25 10:52 Q6H PRN Pain Insulin Aspart 0 units 03/24/24 17:00 Insulin Aspart 300 Units/3 Ml Insuln.Pen SUBCUT 03/24/25 16:59 TID.WM.HS.2A [facility] Protocol Insulin Glargine 35 units 03/24/24 21:00 Insulin Glargine 300 Units/3 Ml Insuln.Pen SUBCUT 03/24/25 20:59 BID [facility] Magnesium Hydroxide 30 ml 03/24/24 10:53 Magnesium Hydroxide Susp 30 Ml Udc PO 03/24/25 10:52 Q6H PRN Constipation Metformin HCl 1,000 mg 03/24/24 17:00 Metformin 500 Mg Tablet PO 03/24/25 16:59 BID.WITH.MEALS [facility] Metoprolol Tartrate 50 mg 03/24/24 21:00 Metoprolol Tartrate 50 Mg Tablet PO 03/24/25 20:59 BID [facility] Dulaglutide [ 3 mg 03/30/24 09:00 Trulicity] 3 Mg/0.5 SUBCUT 03/30/25 08:59 Ml Pen Injector Q7D [facility] Olanzapine 5 mg 03/24/24 10:53 Olanzapine 10 Mg Vial *Nf* IM 03/24/25 10:52 Q6H PRN Agitation Olanzapine 5 mg 03/24/24 10:53 Olanzapine 5 Mg Tablet PO 03/24/25 10:52 Q6H PRN Agitation Pantoprazole Sodium 40 mg 03/25/24 09:00 Pantoprazole 40 Mg Tablet. PO 03/25/25 08:59 DAILY RIYA Primidone 125 mg 03/24/24 14:00 03/24/24 14:39 Primidone 50 Mg Tablet PO 03/24/25 13:59 125 mg TID RIYA Administration Quetiapine Fumarate 50 mg 03/24/24 22:00 Quetiapine Fumarate 50 Mg Tablet PO 03/24/25 21:59 QHS RIYA Ropinirole HCl 0.5 mg 03/24/24 22:00 Ropinirole 0.5 Mg Tablet PO 03/24/25 21:59 QHS RIYA Sodium Chloride 0 ml 03/24/24 01:22 03/24/24 02:26 Sodium Chloride 0.9 % 10 Ml Syringe IV-PUSH 03/24/25 01:21 10 ml PRN PRN Administration Flush Sterile Water 2.1 ml 03/24/24 10:53 Water For Injection,Sterile 10 Ml Vial INJECTION 03/24/25 10:52 PRN PRN To dilute OLANZapine (ZyPREXA) Trazodone HCl 50 mg 03/24/24 10:53 Trazodone 50 Mg Tablet PO 03/24/25 10:52 QHS PRN Insomnia Trazodone HCl 50 mg 03/24/24 13:56 Trazodone 50 Mg Tablet PO 03/24/25 13:55 QHS PRN Insomnia Exam Physical Exam Vital Signs: Temp Pulse Resp BP Pulse Ox O2 Del Method 97.9 F 94 18 118/84 95 Room Air 03/24/24 16:07 03/24/24 16:07 03/24/24 09:21 03/24/24 16:07 03/24/24 16:07 03/24/24 16:07 Narrative: CONST- alert, ambulatory on unit with walker HEAD- normocephalic and atraumatic EENT- sclera nonicteric and conjunctiva nonerythemic, moist oral mucosa, pharynxnot visualized NECK- supple, no cervical lymphadenopathy CARDIAC- RRR no abnormal heart tones PULM- diminished without wheeze or rhonchi, RA, no accessory muscle use or coughnoted ABD- S/NT, NABS, obese EXTREM- no edema BLE, calves nontender SKIN- W/D, good turgor MS- MAEx4 spontaneously with equal strength NEURO- A&Ox3, speech clear and tongue midline, equal facial symmetry PSYCH-mood and behavior appropriate Results - Hospitalist Consult Lab Results Labs: Laboratory Results - last 72 hr 03/24/24 16:27: POC Glucose Comment Cleaned meter 03/24/24 16:27: POC Glucose 515 H*, POC Glucose Comment 03/24/24 16:19: POC Glucose Comment Cleaned meter 03/24/24 16:19: POC Glucose Comment Will notify yvonne 03/24/24 16:19: POC Glucose 571 H*, POC Glucose Comment 03/24/24 11:17: POC Glucose Comment Cleaned meter 03/24/24 11:17: POC Glucose 424 H*, POC Glucose Comment 03/24/24 06:35: POC Glucose 313 03/24/24 04:51: POC Glucose 399 03/24/24 03:03: POC Glucose Comment Cleaned meter 03/24/24 03:03: POC Glucose Comment Will notify yvonne 03/24/24 03:03: POC Glucose 504 H*, POC Glucose Comment 03/24/24 02:12: Urine Color Colorless, Urine Appearance Clear, Urine pH 5.5, Ur Specific [place] 1.027, Urine Protein Negative, Urine Glucose (UA) >=1000 H, Urine Ketones Negative, Urine Occult Blood Negative, Urine Nitrite Negative, Urine Bilirubin Negative, Urine Urobilinogen Normal, Ur Leukocyte Esterase Negative, Urine Opiates Screen Negative, Ur Barbiturates Screen Positive H, Ur Phencyclidine Scrn Negative, Ur Amphetamines Screen Negative, U Benzodiazepines Scrn Negative, Urine Cocaine Screen Negative, U Marijuana (THC) Screen Positive H, Ethyl Alcohol < 10, % Ethyl Alcohol TNP 03/24/24 01:32: POC Glucose Comment Will notify yvonne 03/24/24 01:32: POC Glucose 531 H*, POC Glucose Comment 03/24/24 01:29: Corrected WBC 5.3, Uncorrected WBC Count 5.3, RBC 5.61 H, Hgb 15.8, Hct 46.5, MCV 82.9 L, MCH 28.1, MCHC 33.9, RDW 14.0, Plt Count 205, MPV 9.9, Neut % (Auto) 63.0, Lymph % (Auto) 22.1, [place] % (Auto) 10.7, Eos % (Auto) 2.9, Baso % (Auto) 1.3, Nucleat RBC Rel Count 0.2, Neut # (Auto) 3.4, Lymph # (Auto) 1.2, [place] # (Auto) 0.6, Eos # (Auto) 0.2, Baso # (Auto) 0.1, Monocyte DistWidth 18.78, PHA Creatinine Clear 99.53, Sodium 128 L, Potassium 4.1, Chloride 92 L, Carbon Dioxide 25.3, Anion Gap 14.8, BUN 20, Creatinine 0.98, Est GFR (CKD-EPI) > 60.0, Glucose 558 H*, Calcium 8.2 L, Total Bilirubin 0.3, AST 30, ALT 41, Alkaline Phosphatase 86, Total Creatine Kinase 48, Troponin I High Sens 3.1, Total Protein 6.7, Albumin 4.0, Globulin 2.7, Albumin/Globulin Ratio 1.5 Assessment & Plan Assessment/Plan (1) Restless legs syndrome (RLS): (2) SUNIL on CPAP: (3) Diabetic neuropathy: (4) CAD (coronary artery disease): (5) Obesity (BMI 30-39.9): (6) Uncontrolled diabetes mellitus: (7) Hyperlipidemia: (8) GERD (gastroesophageal reflux disease): Plan Uncontrolled diabetes -Dulaglutide, glargine, SSIC and fingerstick, metformin. Recent A1c 12.0 01/05/24 -BMP in morning Pseudohyponatremia, secondary to hyperglycemia Chronic Conditions HLD- atorvastatin GERD, history gastritis/esophagitis- famotidine, pantoprazole CAD history of stent?clopidogrel?follows with Dr. Santoyo HTN?furosemide, Metoprolol Diabetic neuropathy, chronic back pain- gabapentin RLS?primidone, Ropinirole SUNIL on CPAP, reported noncompliance Obesity, BMI 32 Depression -further POC per inpatient psychiatric team for psychoactive medication management/ adjustment and psychotherapy Documented By: Carolina Soriano APRN 02/24 09/17 1645 Signed By: <Electronically signed by NICOLE Soriano> 03/24/24 1801 <Electronically signed by Gt Martinez DO> 03/24/242011 [facility] Work Phone: 1(828) 592-889506-13-2024 Hospital Discharge instructions Additional Instructions Take Imodium as prescribed for diarrhea. Take Zofran as prescribed for any nausea or vomiting. Increase your fluids and rest. Follow-up with PCP for reevaluation any persistent symptoms 3 to 5 days.[facility] Work Phone: 1(876) 691-615005-13-2024 History and physical note Author Hayder George [facility] January 05, 2024 7:21am Note Date/Time January 05, 2024 6:09a m [facility] [address] [place] [address] Hospitalist H&P Signed Patient: Mannie Michel MR#: [id number] : 1960 Acct:[id number] Age/Sex: 63 / M Adm Date: 4 Loc: Room: [address] [place] [address] Type: ADM INOo Attending Dr: Hayder George DO Copies to: [facility] Kaye Vance MD, RES Hayder George, ~ HPI DATE OF EXAMINATION: 01/05/24 CHIEF COMPLAINT: chest pain HISTORY OF PRESENT ILLNESS: Pt is 63M with hx of NM, HLD, HTN, DM, sleep apnea, and recent admission last month for hyperglycemia and SI due to recent of his . He presented toED today via EMS for midsternal chest pressure, 8/10 pain, and one week of worsening cough. Flu and COVID negative, CXR appears clear, intial troponin and BNP are WNL. Pain was apparently relieved after receiving 1 dose of nitro per EMS and 2 in ED. He is admitted to the floor for observation given his cardiac history. Pt states he had NM at the age of 44, and this feels much different. When he hadan NM, he had diaphoresis and arm pain. He denies both of these. He states one week ago, he started with a cough and thought he was suffering from his usual seasonal allergies. Endorses congestion and runny nose, as well. The cough has been persistent, and he often coughs so hard and so long that his eyes water. Starting Friday morning, he awoke with chest tightness and difficulty getting a deep breath. He states it does not worsen with exertion and only is slightly relieved with rest. He states it's gotten somewhat better since Friday, was relieved with nitro, and has now returned. He states the chest tightness is pressure like someone sitting on his chest . He stated he also had some back pain that has since resolved. He states this chest tightness and SOB does not keep him from sleeping. Denies hx of asthma. Has not tried any medications at home for allergies and congestion. ROS: 10-point review of systems negative unless otherwise noted in HPI. Denies nausea, denies diaphoresis, denies headache, endorses 5 episodes of loose but not watery diarrhea yesterday, denies abdominal pain Review of Systems Review of Systems All other systems reviewed & are negative unless noted below or in HPI [facility] Medical History Gastric erosion Esophagitis Former smoker Sleep apnea with use of continuous positive airway pressure (CPAP) Diabetes Hyperlipidemia Myocardial infarction Hypertension Surgical History History of esophagogastroduodenoscopy (EGD) H/O endoscopy History of liver biopsy Stented coronary artery Family History Mother Heart trouble Social History Marital Status: ( passed November 2023) Smoking Status: Former smoker Tobacco Type: cigarettes Substance Use Type: None Substance Abuse Comment: EDIBLES Meds Medications and Allergies Allergies codeine Allergy (Verified 01/05/24 06:28) dizzy latex Allergy (Verified 01/05/24 06:28) Rash Home Medications atorvastatin 80 mg tablet 80 mg PO HS 07/07/18 [History Confirmed 01/05/24] insulin aspart U-100 100 unit/mL (3 mL) subcutaneous pen 3 units subcut QID 07/07/18 [History Confirmed 01/05/24] insulin glargine 100 unit/mL (3 mL) subcutaneous pen 64 unit subcut QAM 07/07/18[History Confirmed 01/05/24] metformin 500 mg tablet 1,000 mg PO BID 07/07/18 [History Confirmed 01/05/24] clopidogrel 75 mg tablet 75 mg PO DAILY 06/15/20 [History Confirmed 01/05/24] furosemide 20 mg tablet 20 mg PO DAILY 06/15/20 [History Confirmed 01/05/24] nitroglycerin 0.4 mg sublingual tablet 0.4 mg sublingual Q5M PRN Chest Pain 06/15/20 [History Confirmed 01/05/24] primidone 50 mg tablet (Mysoline) 100 mg PO TID 06/15/20 [History Confirmed 01/05/24] citalopram 40 mg tablet 40 mg PO DAILY 06/21/22 [History Confirmed 01/05/24] dulaglutide 3 mg/0.5 mL subcutaneous pen injector (Trulicity) 3 mg subcut QWEEK 06/21/22 [History Confirmed 01/05/24] fluticasone propionate 50 mcg/actuation nasal spray,suspension 2 spray intranasal DAILY 06/21/22 [History Confirmed 01/05/24] metoprolol tartrate 50 mg tablet 50 mg PO BID 06/21/22 [History Confirmed 01/05/24] pantoprazole 40 mg tablet,delayed release 40 mg PO DAILY 06/21/22 [History Confirmed 01/05/24] quetiapine 50 mg tablet 50 mg PO QHS 06/21/22 [History Confirmed 01/05/24] ropinirole 0.5 mg tablet 0.5 mg PO QHS 06/21/22 [History Confirmed 01/05/24] blood sugar diagnostic #100 ea 03/28/23 [Rx Confirmed 01/05/24] blood-glucose meter #1 ea 03/28/23 [Rx Confirmed 01/05/24] lancets #100 ea 03/28/23 [Rx Confirmed 01/05/24] donepezil 10 mg tablet 10 mg PO DAILY 12/11/23 [History Confirmed 01/05/24] insulin aspart U-100 100 unit/mL (3 mL) subcutaneous pen (Novolog FlexPen U-100 Insulin aspart) See Protocol subcut TID.WM.HS.2A #0 mL 12/11/23 [Rx Confirmed 01/05/24] lisinopril 2.5 mg tablet 2.5 mg PO DAILY 12/11/23 [History Confirmed 01/05/24] magnesium oxide 400 mg (241.3 mg magnesium) tablet 400 mg PO BID #0 tabs 12/11/23 [Rx Confirmed 01/05/24] buspirone 5 mg tablet 5 mg PO BID 15 days #30 tabs 12/14/23 [Rx Confirmed 01/05/24] trazodone 50 mg tablet 50 mg PO QHS PRN Insomnia 15 days #15 tabs 12/15/23 [Rx Confirmed 01/05/24] gabapentin 600 mg tablet 1,200 mg PO TID 01/05/24 [History Confirmed 01/05/24] Exam Physical Exam Vital Signs: Temp Pulse Resp BP Pulse Ox O2 Del Method 97.8 F 74 18 119/66 96 Room Air 01/05/24 01:35 01/05/24 04:30 01/05/24 04:30 01/05/24 04:30 01/05/24 04:30 01/05/24 04:30 Narrative: GENERAL: No apparent distress, alert, oriented, appears stated age, comfortable HEENT: NC/AT, EOMI, PERRL, conjunctiva clear, edentulous CARDIOVASCULAR: Regular rate and regular rhythm, no murmurs, symmetric palpable radial pulses RESPIRATORY: mildly short of breath on room air, clear to auscultation bilaterally, symmetric chest rise, prolonged, rattling lower airway cough. Chestpain reproducible with palpation over sternum and lateral ribs ABDOMEN: Soft, non-tender, non-distended, normal bowel sounds EXTREMITIES: moving all extremities well. Well-perfused. Sensation intact. No edema SKIN: Intact, no rash, no trauma NEURO: Cranial nerves grossly intact, no focal neurologic signs PSYCHIATRIC: Good eye contact, appropriate mood and affect, cooperative Results - Hospitalist H&P Lab Results Labs: Laboratory Last Values Corrected WBC 8.8 X10E3/uL (4.1-10.5) 01/05/24 02:05 Uncorrected WBC Count 8.8 x10E3/uL (4.1-10.5) 01/05/24 02:05 RBC 5.17 X10E6/uL (3.90-5.60) 01/05/24 02:05 Hgb 14.6 g/dL (13.0-17.0) 01/05/24 02:05 Hct 42.9 % (38.8-50.0) 01/05/24 02:05 MCV 82.9 fl (83.5-101) L 01/05/24 02:05 MCH 28.2 pg (27.5-35.2) 01/05/24 02:05 MCHC 34.0 g/dL (32.5-35.6) 01/05/24 02:05 RDW 14.0 % (12.0-14.8) 01/05/24 02:05 Plt Count 206 x10E3/uL (150-450) 01/05/24 02:05 MPV 9.4 fl (6.6-10.1) 01/05/24 02:05 Neut % (Auto) 71.3 % (.) 01/05/24 02:05 Lymph % (Auto) 17.3 % (.) 01/05/24 02:05 [place] % (Auto) 8.1 % (.) 01/05/24 02:05 Eos % (Auto) 2.5 % (.) 01/05/24 02:05 Baso % (Auto) 0.8 % (.) 01/05/24 02:05 Nucleat RBC Rel Count 0.2 /100 WBC (0-0.5) 01/05/24 02:05 Neut # (Auto) 6.3 x10E3/uL (1.8-7.7) 01/05/24 02:05 Lymph # (Auto) 1.5 x10E3/uL (1.00-4.8) 01/05/24 02:05 [place] # (Auto) 0.7 x10E3/uL (0.0-0.8) 01/05/24 02:05 Eos # (Auto) 0.2 x10E3/uL (0.0-0.45) 01/05/24 02:05 Baso # (Auto) 0.1 x10E3/uL (0.0-0.2) 01/05/24 02:05 Monocyte Dist Width 19.98 % (0.00-20.00) 01/05/24 02:05 PT 10.3 Seconds (9.0-12.9) 01/05/24 02:05 INR 0.9 01/05/24 02:05 APTT 33.1 Seconds (25.1-36.5) 01/05/24 02:05 PHA Creatinine Clear 105.82 01/05/24 02:05 Sodium 134 mmol/L (136-145) L 01/05/24 02:05 Potassium 3.8 mmol/L (3.5-5.1) 01/05/24 02:05 Chloride 100 mmol/L (98-107) 01/05/24 02:05 Carbon Dioxide 21.7 mmol/L (21.0-31.0) 01/05/24 02:05 Anion Gap 16.1 mEq/L (6.0-15.0) H 01/05/24 02:05 BUN 19 mg/dL (7-25) 01/05/24 02:05 Creatinine 0.92 mg/dL (0.70-1.30) 01/05/24 02:05 Est GFR (CKD-EPI) > 60.0 mL/Min 01/05/24 02:05 Glucose 244 mg/dL (70-100) H 01/05/24 02:05 Calcium 8.5 mg/dL (8.6-10.3) L 01/05/24 02:05 Total Creatine Kinase 72 U/L (30-223) 01/05/24 02:05 Troponin I High Sens 3.6 pg/mL (0.0-20.0) 01/05/24 02:05 B-Natriuretic Peptide 20.0 pg/mL (5-100) 01/05/24 02:05 Triglycerides 271 mg/dL (0-149) H 01/05/24 02:05 Cholesterol 116 mg/dL (140-200) L 01/05/24 02:05 LDL Cholesterol, Calc 31 mg/dL (0-100) 01/05/24 02:05 VLDL Cholesterol 54 mg/dL 01/05/24 02:05 HDL Cholesterol 31 mg/dL (23-92) 01/05/24 02:05 Cholesterol/HDL Ratio 3.7 (<5.0) 01/05/24 02:05 SARS-CoV-2 Rap RNA(RT-PCR) Negative (Negative) 01/05/24 02:20 Microbiology Results Micro: Microbiology - Results from entire visit 01/05/24 02:20 Nasopharyngeal SARS-CoV-2, Influenza & RSV (PCR) - Final Assessment & Plan Assessment/Plan (1) Chest pain: (2) Costochondritis: (3) Bronchospasm with bronchitis, acute: Plan Pt is 63M with remote Hx of NM s/p stenting who presented to ED with chest pain relieved by nitro x1 by EMS and nitro x2 in ED. Received aspirin 324mg in ED. Pain is reproducible on palpation and onset began after several days of forcefulcough. Clinical presentation is more consistent with bronchitis secondary to viral illness, especially with reports of recent diarrhea. Will rule out ACS. Acute problems: Chest pain relieved by nitro. -Trend troponin -Monitor on telemetry -Repeat EKG -Echo -Morphine 2mg q4h PRN -Nitro sublingual PRN Cough, congestion -Full respiratory panel -Tessalon perles -Afrin, loratidine -Albuterol nebulizer Chronic conditions requiring attention while inpatient: -DM: A1c DVT ppx: Lovenox 40mg CODE STATUS: Full code Diet: Heart healthy Dispo: admitted for observation I personally saw this patient on the day of the encounter, reviewed the history,performed the fuentes elements of the exam, formulated the plan of care and confirmed the Resident's assessment and plan. Seen in conjunction with Dr Vance, patients chest pain is currently improved and I agree with the plan to trend troponin, check echocardiogram and also initiate treatment for a viral bronchitis with beta agonists and antitussives. - Hayder George DO IP vs OBS Justification Based on differential dx, clinical care plan, and risk of adverse events, if untreated, in my clinical judgement this patient requires an acute care setting as: OBSERVATION because of an expectation of an under 2 midnight stay. Estimated length of stay (# of days): 1 Documented By: Hayder George DO 01/05/24 0556 Signed By: <Electronically signed by Hayder George DO> 01/05/24 0721 <Electronically signed by MD RITA Vance> 01/05/24 0658 [facility] Work Phone: 1(623) 780-756004-22-2024 Discharge summary Author Nigel nieto [facility] December 15, 2023 7:34am Note Date/Time December 15, 2023 7:[address] 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 Michel is a 63 year old male Mr. Michel is a 63-year-old male with a reported history of anxiety, diabetes and hypertension who presents for inpatient admission due to suicidal thoughts. Reportedly, he presented to the ER reporting suicidal ideation and depression due to recent of around a week ago. He presented to ED with complaints of elevated glucose, hypertension. Per EMS, glucose was in 400s for them and was given fluids. Notes he has been taking his insulin as directed. Notes a few days agohe had a bottle of Tylenol in his hand and question taking all of it. Has had thoughts of suicidal ideation in past. No homicidal ideation. At the time of the interview, he presented as depressed. He reports feeling very sad since the of his who battled 3 cancers and chronic kidney disease. He states she was unable to continue with dialysis and decided to pursue hospice. He is very tearful on exam and said he feels lonely. He said he needs to talk to someone to get all these feelings out. For at least two weeks, the patient complains of depressed mood most of the day every day, decreased interest in activities normally enjoyed, low energy andfatigue throughout the day even when sleeping adequately, feelings of worthlessness, guilt for no reason, and poor focus and concentration in routine activities. Sleep has been poor and appetite fluctuates. The patient admits to thoughts of at times associated with SI. He admitted to thinking about killing himself for the last couple of days and thought about multiple ways including overdose, cutting or shooting himself. He does not have access to guns. He reports a previous suicide attempt by overdosing long time ago when hewas only a friend with his but was not hospitalized at that time. He does not have a current counselor or psychiatrist. He is currently prescribed Celexaand Seroquel. He denies symptoms suggestive of demond, psychosis or agitation. Hedenied any illicit drug use. Patient reports that he is open to starting BuSpar to help with anxiety. He would like to attend groups on the unit and connect with a counselor. Risks, benefits and indications of medications were discussed with the patient. The patient verbalized understanding. Course of Treatment: The patient was familiar with the mental health therapy services available to him while on the unit and was encouraged to participate. He said he has been grieving the loss of his . We discussed medication risks, benefits, and indications in detail. He was open to trying psychopharmacological treatment. His medication regimen was continued and Buspar was added for anxiety. Trazodonewas added as PRN to help with insomnia. He felt that his symptoms improved on the current medication regimen, stating that his depressive symptoms were reduced and he became less anxious. His thought process was transparent on the exam. He described his mood as more motivated. He has been compliant with treatment and reported no side effects. His sleep and appetite were okay. The patient was attending groups and described them as helpful in building coping skills. He denied any access to firearms or lethal weapons. His symptoms improved, and his affect became brighter. He reproted feeling more focused and clear minded . He was social with peers on the unit and indicated that he learned a lot to improve his mental health. Hefelt better than before coming to the hospital and hopeful about his future. He described both his depression and anxiety as mild, rating both 0 out of 10, with ten being the worst. He said his mental health symptoms are not interferingwith his ability to function. Staff noted improvement in his symptoms as documented in nursing. He has been denying SI/HI or AVH to multiple members of the treatment team. He did not exhibit any disorganized behavior nor appeared keon experiencing auditory hallucinations or expressing delusions. He did not showany behavior concerning demond. He was much more insightful compared to the time of admission. He understands the importance of outpatient therapy to ensure the stability of symptoms. He denied suicidal or homicidal ideation and verbalized the intent to notify the staff if he has such thoughts. No suicidal or self-injurious behaviors occurred during inpatient treatment. Mr. De La Cruz said he will utilize resources, such as calling the hotline if hehas any SI/HI. He learned how to stay positive and manage his stress more healthily. I explained to the patient that hospital discharge does not mean medical care ends there. He needs consistent outpatient psychiatric follow-up, cognitive behavioral therapy, and PCP visits to ensure the stability of symptoms. His three wishes include maintaining better health, keeping a positive outlook in life, and making good money. Patient's illness, medication side effects, benefits and risks were reviewed with the patient prior to discharge. The patient voiced understanding of their diagnosis, the medications recommended along with the importance of medication compliance. The patient was counseled not to stop medications without the supervision of a psychiatrist. The patient was pet counselor to follow-up with their outpatient medical provider as indicated. The patient was counseled that if there was an increase in mental health issues, depression, anxiety, medication side effects, self harm or thoughts of harm to others, the patient was not to harm them self or stop treatment, but to call [employer] or come to the nearest emergency room. The patient also received information regarding advancedmental and medical health directives during this hospitalization to discuss their outpatient provider. The plan was discussed with the patient, the nurses and the social work department. The patient voiced agreement with the plan. Discharge disposition: Home, coordinated by case management Safe discharge Planning: With the cessation of all suicidal ideation, improvements in mood, and cessationof any psychotic process, aftercare plans were solidified. The patient was able to formulate a believable safety plan. Discharge plans were discussed with the patient and the treatment team. All agreed with the discharge plan. On the day of discharge, he was evaluated and had no complaints. He denied any SI/HI. He felt hopeful and motivated and agreed to follow up with outpatient treatment as arranged by case management. Factors to be considered are the chronicity and severity of the symptoms and signs, associated comorbidity, and differential diagnosis-motivation to get in treatment, response to treatment, adherence to treatment recommendations, and using skills. The patient's verbal consent was provided. Suicide risk assessment: A thorough review of protective and risk factors was conducted during this admission. I discussed with the patient the following recommendations that would help reduce suicide, which include limiting the number of pills to a 14-day supply with one refill at the time of discharge to avoid potential overdose, involving family members in his care, consistent outpatient follow-up preferably within seven days of release, and his desire to live. He reported a good therapeutic alliance, good response to medication management and therapy, availability of local mental health services and willingness to follow up, lack of suicidal ideation, behavior, intent or plan, lack of impulsivity, agitation, or psychosis. The patient is future-oriented andunderstands the importance of outpatient follow-up. He noted a better ability tomanage his emotions and contract for safety. The presence of positive factors like family and sabina, lack of access to firearms, and desire to continue his treatment is consistent with a safe discharge plan. Psychiatric experts agree that it is impossible to predict suicide and violence in general. Given the chronic risk of suicide, we discussed a plan to help him with long-term safety. The patient is not suicidal or psychotic now. To help decrease his suicide and violence risk, as best I can, I am referring him for outpatient treatment, including but not limited to medication management for long-term follow-up to have somewhere to go and someone to manage him as symptoms and stressors develop. This is the best way to keep him alive. So, we discussed a crisis plan for future suicidality: at the first sign of distress, he will call the hotline; if this is not sufficient, he will call 911, then callfamily members or friends; ultimately, he will come to the ER. Violence Risk Assessment: Chronic: Gender Modifiable: good response to treatment, good therapeutic alliance, availability of local mental health services and willingness to follow up, lack of homicidal ideation (intent or plan) on the day of discharge and during hospitalization, lack of substance abuse, future oriented. No history of recent violence reported. Furthermore, No access to lethal means as currently have no weapons. No aggressive behavior during hospitalization. Has been social with peers on the unit and has been attending groups. Current Violence Risk Assessment: Low acute risk given known chronic and modifiable risk factors. Patient did not meet criteria for probate and his behavior has been overall appropriate on the unit. He has denied homicidal thoughts and has not exhibited any aggressive behavior. He is not an acute risk to himself or others evidencedby subjective and objective data during his hospitalization. MSE: Orientation: Alert and oriented to person, place, and time. Appearance/Behavior: Fair grooming and hygiene, calm, cooperative, engaged in the interview. Good eye contact. Normal psychomotor activity. Speech: regular rate, rhythm, volume, and tone. Non pressured. Knowledge: Appropriate for age and level of education Mood: okay Affect: reactive, mood-congruent Thought process: linear, logical, and goal-oriented Thought content: No SI/HI. No AVH. No delusions. He does not appear to be responding to internal stimuli. Concentration: Grossly intact based on track during the interview Associations: No loosening of associations Memory: Able to recall recent and remote historical information Insight: Fair, able to appreciate current symptoms and need for outpatient treatment Judgment: fair, agreed to follow treatment recommendations. Safety: The patient is not acutely psychotic, suicidal or homicidal and can continue treatment on an outpatient basis. He was made aware of the 17/03 emergency services of the crisis center and was advised to call 911 or go to the nearest ER in case of a crisis ( (including having thoughts of harming himself or others). Typical short- and long-term side effects of the proposed medication regimen, including contraindications and clinically significant interactions, were discussed with the patient. Side effects include but not limited to sedation, overdose, rash, movement disorders (TD, EPS), weight gain, and appetite changesand advised the patient not to drive or drink while taking these meds. Patient should reach out to medical provider if any of these side effects occur. Using drugs can increase risk of . We also discussed risk of overdose with this current med regimen. Patient understands that it is impossible to guarante an outcome with medications. Patient indicates an understanding that benefits outweigh the risks. Continue supportive therapy with some CBT techniques. Time spent discussing smoking cessation with patient: more than 10 minutes Condition Condition at Discharge: Stable Status at Discharge Functional status at discharge: independent ambulation Time Spent with Patient Time spent providing/coordinating discharge services (# min): 88 Discharge Plan Discharge Plan Patient Disposition: Home Activity: No Activity Restriction Diet: Regular Additional Instructions: Important Contact Information You can call [facility] at [phone] any time day or night if you have emergent questions or question regarding discharge instructions. If at any time you are feeling an increase inyour psychiatric symptoms, call your physician or behavioral healthcare provider. If any time you have thoughts of harming yourself or others contact one of the following: Call (available 17/03) Crisis Text Line (available 17/03) text 4HOPE to [phone] [facility] Hope Line (available 8 a.m. Midnight) call [phone] ([phone]) Prescriptions: New buspirone 5 mg Tablet 5 mg PO BID 15 Days Qty: 30 2RF trazodone 50 mg Tablet 50 mg PO QHS PRN (Reason: Insomnia) 15 Days Qty: 15 2RF Continued metformin 500 mg tablet 1,000 mg PO BID Patient Comments: atorvastatin 80 mg tablet 80 mg PO HS Patient Comments: take 1 tablet by mouth at bedtime insulin aspart U-100 100 unit/mL insulin pen 3 units subcut QID Patient Comments: inject 3 units subcutaneously PER 10 CARBS FOUR TIMES PER DAY insulin glargine 100 unit/mL (3 mL) insulin pen 64 unit subcut QAM Patient Comments: gabapentin 600 mg tablet 1,200 mg PO TID lisinopril 2.5 mg tablet 2.5 mg PO DAILY primidone [Mysoline] 50 mg tablet 100 mg PO TID Patient Comments: take 2 tablets by mouth three times a day clopidogrel 75 mg tablet 75 mg PO DAILY Patient Comments: take 1 tablet by mouth once daily nitroglycerin 0.4 mg Tablet, Sublingual 0.4 mg SUBLINGUAL Q5M PRN (Reason: Chest Pain) Rx Instructions: up to 3 doses citalopram 40 mg Tablet 40 mg PO DAILY Hold Instructions: Resume on 06/30/22. pantoprazole 40 mg Tablet,Delayed Release (Dr/Ec) 40 mg PO DAILY ropinirole 0.5 mg tablet 0.5 mg PO QHS Patient Comments: TAKE 1 TABLET BY MOUTH 1 TO 3 HOURS BEFORE BEDTIME DAILY metoprolol tartrate 50 mg tablet 50 mg PO BID Patient Comments: take 1 tablet by mouth every 12 hours fluticasone propionate 50 mcg/actuation spray,suspension 2 spray INTRANASAL DAILY Patient Comments: INSTILL 2 SPRAYS INTO EACH NOSTRIL ONCE DAILY. quetiapine 50 mg Tablet 50 mg PO QHS Trulicity 3 mg/0.5 mL Pen Injector 3 mg SUBCUT QWEEK donepezil 10 mg tablet 10 mg PO DAILY magnesium oxide 400 mg (241.3 mg magnesium) Tablet 400 mg PO BID Qty: 0 0RF insulin aspart U-100 [Novolog FlexPen U-100 Insulin] 100 unit/mL (3 mL) Insulin Pen See Protocol subcut TID.WM.HS.2A Qty: 0 0RF Protocol: Corrective Scale #5 (TDI 101-125 UNITS) Condition: Corrective Scale #5 (TDI 101-125 UNITS) Condition: Dose/Route: Instruction: Condition: Fingerstick Blood Glucose Dose/Route: Insulin Units Condition: 150-199 mg/dl Dose/Route: 5 unit Condition: 200-249 mg/dl Dose/Route: 9 unit Condition: 250-299 mg/dl Dose/Route: 14 unit Condition: 300-349 mg/dl Dose/Route: 18 unit Condition: 350-399 mg/dl Dose/Route: 22 unit Condition: greater than or = 400 mg/dl Dose/Route: 24 unit Instruction: Call Provider Protocol Text: *If the corrective scale dose has been administered within the past 4 hours, do not use corrective scale again unless approved by prescriber* No Action gabapentin 400 mg capsule 1,200 mg PO TID Patient Comments: (DME) blood-glucose meter Kit Qty: 1 0RF Rx Instructions: FSBS AC/HS (DME) blood sugar diagnostic Strip Qty: 100 0RF Rx Instructions: FSBS ACHS (DME) lancets Misc Qty: 100 0RF Rx Instructions: FSBS AC/HS furosemide 20 mg tablet 20 mg PO DAILY Patient Comments: take 1 tablet by mouth once daily Follow Up: [facility] ([facility]) [Outside] (Refer for mental health care. Contact your PCP at this location for medical needs. ) Exam Physical Exam Vital Signs: Temp Pulse Resp BP Pulse Ox O2 Del Method 97.7 F 85 18 101/73 96 Room Air 12/14/23 23:30 12/14/23 23:30 12/14/23 15:30 12/14/23 23:30 12/14/23 23:30 12/14/23 23:30 Diagnostic Studies Completed and Pending Studies Labs on day of discharge: 12/15/23 06:33: POC Glucose 183, POC Glucose Comment Glu2: cleaned meter 12/15/23 02:53: POC Glucose 92 12/14/23 21:17: POC Glucose 312, POC Glucose Comment Glu2: cleaned meter 12/14/23 16:08: POC Glucose 184 12/14/23 11:07: POC Glucose 248 Documented By: Nigel Rdz MD 4 0731 Signed By: <Electronically signed by Nigel Rdz MD> 12/15/23 0734 [facility] Work Phone: 1(125) 439-283704-21-2024 Progress note Author Nigel nieto [facility] December 14, 2023 7:00am Note Date/Time December 14, 2023 7:[address] [facility] [facility] [address] [place] [address] Psychiatry Progress Note Signed Patient: Mannie Michel MR#: [id number] : 1960 Acct:[id number] Age/Sex: 63 / M Adm Date: 4 Loc: Room: [address] [place] [address] Type : ADM IN Attending Dr: Nigel Rdz MD Copies to: ~ Date of Service: 12/14/2023 Subjective Subjective Narrative: Mr. Michel is doing fairly well. The patient reports improved mood and appetite, improved ability to enjoy certain activities, reduction of feelings ofworthlessness or guilt, and improved focus and concentration. He continues to struggle with anxiety occasionally. He is tolerating the current medication regimen without any side effects. He denied current SI/HI and verbalized the intent to notify staff if he has such thoughts. He denied any suicidal or self-injurious behaviors. I did talk with him about the importance of medication compliance as he believes the medicationsmade a good difference. Sleep and appetite are ok. Appearance: dressed casually Mental Status: mental status grossly normal Mood: Euthymic mood Affect: Normal affect Speech and Movement: speech and movement normal and speech clear Attitude: cooperative Thought Process: normal Thought Content: Denied hallucinations, no homicidality and no suicidality Insight: fair Judgment: fair Impulse control: fair Exam Physical Exam Vital Signs: Temp Pulse Resp BP Pulse Ox O2 Del Method 97.3 F L 88 16 123/86 99 Room Air 12/13/23 19:36 12/13/23 19:36 12/13/23 19:36 12/13/23 19:36 12/13/23 19:36 12/13/23 19:36 Assessment/Plan Assessment/Plan (1) Major depressive disorder, recurrent, moderate: (2) Generalized anxiety disorder: Plan Patient noted feeling better and denies SI/HI Continue home meds. He tolerated Buspar 5 mg po bid for anxiety. Monitor suicidal behaviors for safety of self (15-minute face check). Recommend attending groups and psychoeducation for building coping skills. Typical short- and long-term side effects of the proposed medication regimen, including contraindications and clinically significant interactions, were discussed with the patient. I gave examples of side effects such as but not limited to sedation, movement disorders (TD, EPS), weight gain, and appetite changes and advised the patient not to drive while taking these meds. We also discussed risk of overdose with this current med regimen. Targeted symptoms and signs, possible therapeutic benefit, side effect and risks No abnormal movements noted on exam. AIMS is Zero. Involve friends/family members if applicable to coordinate care and ensure appropriate outpatient appointments are scheduled prior to discharge. I have reviewed evaluations by other providers (ER notes, nurses and staff) Documented By: Nigel Rdz MD 4 2021 Signed By: <Electronically signed by Nigel Rdz MD> 12/14/23 0700 [facility] Work Phone: 1(740) 531-732304-20-2024 Progress note Author Nigel nieto [facility] December 13, 2023 7:19am Note Date/Time December 13, 2023 7:[address] [facility] [address] [place] [address] Psychiatry Progress Note Signed Patient: Mannie Michel MR#: [id number] : 1960 Acct:[id number] Age/Sex: 63 / M Adm Date: 4 Loc: 1S Room: [address] [place] [address] Type : ADM IN Attending Dr: Nigel Rdz MD Copies to: ~ Date of Service: 12/13/2023 Subjective Subjective Narrative: Mr. Michel is feeling better. We discussed importance of med compliance. Anxiety is moderate in intensity with attempted utilization of coping skills. Jaylenes SI/HI and verbalized the intent to notify staff if he has such thoughts. He said a friend visited him yesterday and he is starting to feel better. His symptoms have been improving and his affect is becoming brighter. He continues to be compliant with prescribed medications and is visible within the unit milieu. He alluded to psychosocial stressors being the primary issue that he is struggling with. He described staff as supportive and non judgmental He has no hx of recent attempts, and has been future oriented, participated in group activities, articulated needs appropriately, and displayed no self-harm behaviors. Imminent risk is low given factors noted above. Further inpatient hospitalization unlikely to mitigate suicide risk, and pt agrees to f/u with outpatient psych care. All lab results discussed with patient. We also discussedprognosis of illness and importance of outpatient CBT. He agreed to continue thecurrent medications regimen. Risks, benefits, and indications of medications were discussed. He verbalized understanding. Overall, he has a positive mood and attitude towards life. Acute suicide risk assessment was low. His modifiable risk factors including anxiety, depression were managed with current medication. He did not report anysuicidality on the day of discharge and no suicidality behavior during his hospitalization. He has been attending groups and is motivated for outpatient treatment He has some chronic risk factors due to grief and previous suicide attempt but said he is in a much better place compared to the time of admission. Appearance: dressed casually Mental Status: mental status grossly normal Mood: Euthymic mood Affect: Normal affect Speech and Movement: speech and movement normal and speech clear Attitude: cooperative Thought Process: normal Thought Content: Denied hallucinations, no homicidality and no suicidality Insight: fair Judgment: fair Impulse control: fair Exam Physical Exam Vital Signs: Temp Pulse Resp BP Pulse Ox O2 Del Method 97.7 F 87 16 102/69 97 Room Air 12/12/23 23:15 12/12/23 23:15 12/12/23 23:15 12/12/23 23:15 12/12/23 23:15 12/12/23 23:15 Objective Labs Labs: Abnormal Labs 12/12/23 06:18 Triglycerides 263 H Assessment/Plan Assessment/Plan (1) Major depressive disorder, recurrent, moderate: (2) Generalized anxiety disorder: Plan Patient noted feeling better and denies SI/HI Continue home meds. He tolerated Buspar 5 mg po bid for anxiety. Monitor suicidal behaviors for safety of self (15-minute face check). Recommend attending groups and psychoeducation for building coping skills. Typical short- and long-term side effects of the proposed medication regimen, including contraindications and clinically significant interactions, were discussed with the patient. I gave examples of side effects such as but not limited to sedation, movement disorders (TD, EPS), weight gain, and appetite changes and advised the patient not to drive while taking these meds. We also discussed risk of overdose with this current med regimen. Targeted symptoms and signs, possible therapeutic benefit, side effect and risks No abnormal movements noted on exam. AIMS is Zero. Involve friends/family members if applicable to coordinate care and ensure appropriate outpatient appointments are scheduled prior to discharge. I have reviewed evaluations by other providers (ER notes, nurses and staff) Documented By: Nigel Rdz MD 4 0714 Signed By: <Electronically signed by Nigel Rdz MD> 12/13/23 0719 [facility] Work Phone: 1([phone]) 104-362904-19-2024 History and physical note Author Nigel nieto [facility] December 12, 2023 11:11am Note Date/Time December 12, 2023 7:[address] [facility] [address] [place] [address] Psychiatry H&P Signed Patient: Mannie Michel MR#: [id number] : 1960 Acct:[id number] Age/Sex: 63 / M Adm Date: 4 Loc: 1S Room: [address] [place] [address] Type: ADM IN Attending Dr: Nigel Rdz MD Copies to: Nigel Rdz MD [facility]~ Date of Service: 12/12/2023 HPI History of Present Illness History of present illness: Per the consult note, Mr. Michel is a 63 year old male Mr. Michel is a 63-year-old male with a reported history of anxiety, diabetes and hypertension who presents for inpatient admission due to suicidal thoughts. Reportedly, he presented to the ER reporting suicidal ideation and depression due to recent of around a week ago. He presented to ED with complaints of elevated glucose, hypertension. Per EMS, glucose was in 400s for them and was given fluids. Notes he has been taking his insulin as directed. Notes a few days agohe had a bottle of Tylenol in his hand and question taking all of it. Has had thoughts of suicidal ideation in past. No homicidal ideation. At the time of the interview, he presented as depressed. He reports feeling very sad since the of his who battled 3 cancers and chronic kidney disease. He states she was unable to continue with dialysis and decided to pursue hospice. He is very tearful on exam and said he feels lonely. He said he needs to talk to someone to get all these feelings out. For at least two weeks, the patient complains of depressed mood most of the day every day, decreased interest in activities normally enjoyed, low energy andfatigue throughout the day even when sleeping adequately, feelings of worthlessness, guilt for no reason, and poor focus and concentration in routine activities. Sleep has been poor and appetite fluctuates. The patient admits to thoughts of at times associated with SI. He admitted to thinking about killing himself for the last couple of days and thought about multiple ways including overdose, cutting or shooting himself. He does not have access to guns. He reports a previous suicide attempt by overdosing long time ago when hewas only a friend with his but was not hospitalized at that time. He does not have a current counselor or psychiatrist. He is currently prescribed Celexaand Seroquel. He denies symptoms suggestive of demond, psychosis or agitation. Hedenied any illicit drug use. Patient reports that he is open to starting BuSpar to help with anxiety. He would like to attend groups on the unit and connect with a counselor. Risks, benefits and indications of medications were discussed with the patient. The patient verbalized understanding. Mental Status: mental status grossly normal Mood: depressed mood Affect: constricted affect Speech and Movement: speech and movement normal and speech clear Attitude: cooperative Thought Process: normal Thought Content: Denied hallucinations, no homicidality and positive suicidality Insight:Fair Judgment: Fair Review of Systems Constitutional: Pt denies fatigue, malaise. Neuro: Denies dizziness/lightheadedness. Denies TBI, seizure, memory loss. Denies numbness/tingling in extremities HEENT: Denies vision/hearing changes. Pulmonary: Denies SOB, dyspnea, cough, wheezing. Cardiac: Denies chest pain/pressure. Denies edema, palpitations. GI: Denies abdominal pain, heartburn, N/V. Denies constipation and diarrhea : Denies dysuria, hematuria, polyuria. Physical exam General: not in any acute distress Skin: intact HEENT: head atraumatic, face symmetrical. Pulm: Breathing normally without excessive effort Cardio: Regular rate and rhythm Abdomen: Normal inspection Musculoskeletal: Moves all extremities, normal strength all extremities. Neuro: Pt alert, oriented x3. Gait normal. CNI: normal olfaction, no concerns reported CNII: Visual alex intact CNIII,IV,: EOM intact, no nystagmus. CNV: Sensation intact to light touch. CNVII: Raises eyebrows, smile/frown, puff out cheeks symmetrically. CNVIII: Hearing intact bilaterally. CNIX,X: Voice normal, soft palate elevation normal, symmetrical. CNXI: Shoulder shrug strong, equal bilaterally. CNXII: Tongue protrusion midline Mental Status: mental status grossly normal Mood: depressed mood Affect: constricted affect Speech and Movement: speech and movement normal and speech clear Attitude: cooperative Thought Process: normal Thought Content: Denied hallucinations, no homicidality and positive suicidality Insight: fair Judgment: fair [facility] Medical History Gastric erosion Esophagitis Former smoker Sleep apnea with use of continuous positive airway pressure (CPAP) Diabetes Hyperlipidemia Myocardial infarction Hypertension Surgical History History of esophagogastroduodenoscopy (EGD) H/O endoscopy History of liver biopsy Stented coronary artery Family History Mother Heart trouble Social History Smoking Status: Former smoker Tobacco Type: cigarettes Substance Use Type: Marijuana and Cocaine Substance Abuse Comment: FORMER USER OF ETOH Meds Medications and Allergies Allergies codeine Allergy (Verified 12/10/23 21:01) dizzy latex Allergy (Verified 12/10/23 21:01) Rash Home Medications atorvastatin 80 mg tablet 80 mg PO HS 07/07/18 [History Confirmed 12/11/23] gabapentin 400 mg capsule 1,200 mg PO TID 07/07/18 [History Confirmed 12/11/23] insulin aspart U-100 100 unit/mL (3 mL) subcutaneous pen 3 units subcut QID 07/07/18 [History Confirmed 12/11/23] insulin glargine 100 unit/mL (3 mL) subcutaneous pen 64 unit subcut QAM 07/07/18[History Confirmed 12/11/23] metformin 500 mg tablet 1,000 mg PO BID 07/07/18 [History Confirmed 12/11/23] clopidogrel 75 mg tablet 75 mg PO DAILY 06/15/20 [History Confirmed 12/11/23] furosemide 20 mg tablet 20 mg PO DAILY 06/15/20 [History Confirmed 12/11/23] nitroglycerin 0.4 mg sublingual tablet 0.4 mg sublingual Q5M PRN Chest Pain 06/15/20 [History Confirmed 12/11/23] primidone 50 mg tablet (Mysoline) 100 mg PO TID 06/15/20 [History Confirmed 12/11/23] citalopram 40 mg tablet 40 mg PO DAILY 06/21/22 [History Confirmed 12/11/23] dulaglutide 3 mg/0.5 mL subcutaneous pen injector (Trulicity) 3 mg subcut QWEEK 06/21/22 [History Confirmed 12/11/23] fluticasone propionate 50 mcg/actuation nasal spray,suspension 2 spray intranasal DAILY 06/21/22 [History Confirmed 12/11/23] metoprolol tartrate 50 mg tablet 50 mg PO BID 06/21/22 [History Confirmed 12/11/23] pantoprazole 40 mg tablet,delayed release 40 mg PO DAILY 06/21/22 [History Confirmed 12/11/23] quetiapine 50 mg tablet 50 mg PO QHS 06/21/22 [History Confirmed 12/11/23] ropinirole 0.5 mg tablet 0.5 mg PO QHS 06/21/22 [History Confirmed 12/11/23] blood sugar diagnostic #100 ea 03/28/23 [Rx Confirmed 12/11/23] blood-glucose meter #1 ea 03/28/23 [Rx Confirmed 12/11/23] lancets #100 ea 03/28/23 [Rx Confirmed 12/11/23] donepezil 10 mg tablet 10 mg PO DAILY 12/11/23 [History Confirmed 12/11/23] gabapentin 600 mg tablet 1,200 mg PO TID 12/11/23 [History Confirmed 12/11/23] insulin aspart U-100 100 unit/mL (3 mL) subcutaneous pen (Novolog FlexPen U-100 Insulin aspart) See Protocol subcut TID.WM.HS.2A #0 mL 12/11/23 [Rx Confirmed 12/11/23] lisinopril 2.5 mg tablet 2.5 mg PO DAILY 12/11/23 [History Confirmed 12/11/23] magnesium oxide 400 mg (241.3 mg magnesium) tablet 400 mg PO BID #0 tabs 12/11/23 [Rx Confirmed 12/11/23] Exam Physical Exam Vital Signs: Temp Pulse Resp BP Pulse Ox O2 Del Method 97.4 F L 89 18 108/74 96 Room Air 12/11/23 20:34 12/11/23 20:34 12/11/23 20:34 12/11/23 20:34 12/11/23 20:34 12/11/23 20:34 Assessment/Plan (1) Major depressive disorder, recurrent, moderate: (2) Generalized anxiety disorder: Plan Admit to 1S for management of depression and to ensure safety of self due to SI. Continue home meds. Add Buspar 5 mg po bid for anxiety. Monitor suicidal behaviors for safety of self (15-minute face check). Recommend attending groups and psychoeducation for building coping skills. Typical short- and long-term side effects of the proposed medication regimen, including contraindications and clinically significant interactions, were discussed with the patient. I gave examples of side effects such as but not limited to sedation, movement disorders (TD, EPS), weight gain, and appetite changes and advised the patient not to drive while taking these meds. We also discussed risk of overdose with this current med regimen. Targeted symptoms and signs, possible therapeutic benefit, side effect and risks No abnormal movements noted on exam. AIMS is Zero. Involve friends/family members if applicable to coordinate care and ensure appropriate outpatient appointments are scheduled prior to discharge. I have reviewed evaluations by other providers (ER notes, nurses and staff) Documented By: Nigel Rdz MD 4 [id number] Signed By: <Electronically signed by Nigel Rdz MD> 12/12/[address] [place] [address] Work Phone: [phone] 113-220304-18-2024 Consult note Author Nigel nieto [facility] December 11, 2023 10:47am Note Date/Time December 11, 2023 10: 42am [facility] [address] [place] [address] Psychiatry Consult Note Signed Patient: Mannie Michel MR#: [id number] : 1960 Acct:[id number] Age/Sex: 63 / M Adm Date: 4 Loc: Room: [address] [place] [address] Type : ADM INOo Attending Dr: Alix Neff MD Copies to: Nigel Rdz MD [facility] Alix Neff MD~ HPI Consult Date: 12/11/23 Requesting Physician: Alix Neff MD Primary Care Provider: [facility] Consult Narrative HPI: Mr. Michel is a 63-year-old male with a reported history of anxiety, diabetes and hypertension who presents for inpatient admission due to suicidal thoughts. Reportedly, he presented to the ER reporting suicidal ideation and depression due to recent of around a week ago. He presented to ED with complaints of elevated glucose, hypertension. Per EMS, glucose was in 400sfor them and was given fluids. Notes he has been taking his insulin as directed. Notes a few days ago he had a bottle of Tylenol in his hand and question taking all of it. Has had thoughts of suicidal ideation in past. No homicidal ideation. At the time of the interview, he presented as depressed. He reports feeling very sad since the of his who battled 3 cancers and chronic kidney disease. He states she was unable to continue with dialysis and decided to pursue hospice. He is very tearful on exam and said he feels lonely. He said he needs to talk to someone to get all these feelings out. For at least two weeks, the patient complains of depressed mood most of the day every day, decreased interest in activities normally enjoyed, low energy andfatigue throughout the day even when sleeping adequately, feelings of worthlessness, guilt for no reason, and poor focus and concentration in routine activities. Sleep has been poor and appetite fluctuates. The patient admits to thoughts of at times associated with SI. He admitted to thinking about killing himself for the last couple of days and thought about multiple ways including overdose, cutting or shooting himself. He does not have access to guns. He reports a previous suicide attempt by overdosing long time ago when hewas only a friend with his but was not hospitalized at that time. He does not have a current counselor or psychiatrist. He is currently prescribed Celexaand Seroquel. He denies symptoms suggestive of demond, psychosis or agitation. Hedenied any illicit drug use. Mental Status: mental status grossly normal Mood: depressed mood Affect: constricted affect Speech and Movement: speech and movement normal and speech clear Attitude: cooperative Thought Process: normal Thought Content: Denied hallucinations, no homicidality and positive suicidality Insight:Fair Judgment: Fair [facility] Medical History Gastric erosion Esophagitis Former smoker Sleep apnea with use of continuous positive airway pressure (CPAP) Diabetes Hyperlipidemia Myocardial infarction Hypertension Surgical History History of esophagogastroduodenoscopy (EGD) H/O endoscopy History of liver biopsy Stented coronary artery Family History Mother Heart trouble Social History Smoking Status: Former smoker Tobacco Type: cigarettes Substance Use Type: None Substance Abuse Comment: FORMER USER OF ETOH Meds Medications and Allergies Allergies codeine Allergy (Verified 12/10/23 21:01) dizzy latex Allergy (Verified 12/10/23 21:01) Rash Home Medications atorvastatin 80 mg tablet 80 mg PO HS 07/07/18 [History Confirmed 12/11/23] gabapentin 400 mg capsule 1,200 mg PO TID 07/07/18 [History Confirmed 12/11/23] insulin aspart U-100 100 unit/mL (3 mL) subcutaneous pen 3 units subcut QID 07/07/18 [History Confirmed 12/11/23] insulin glargine 100 unit/mL (3 mL) subcutaneous pen 64 unit subcut QAM 07/07/18[History Confirmed 12/11/23] lisinopril 5 mg tablet 2.5 mg PO DAILY 07/07/18 [History Confirmed 12/11/23] meclizine 25 mg tablet 25 mg PO Q8H PRN Dizziness 07/07/18 [History Confirmed 12/11/23] metformin 500 mg tablet 1,000 mg PO BID 07/07/18 [History Confirmed 12/11/23] clopidogrel 75 mg tablet 75 mg PO DAILY 06/15/20 [History Confirmed 12/11/23] furosemide 20 mg tablet 20 mg PO DAILY 06/15/20 [History Confirmed 12/11/23] nitroglycerin 0.4 mg sublingual tablet 0.4 mg sublingual Q5M PRN Chest Pain 06/15/20 [History Confirmed 12/11/23] primidone 50 mg tablet (Mysoline) 100 mg PO TID 06/15/20 [History Confirmed 12/11/23] citalopram 40 mg tablet 40 mg PO DAILY 06/21/22 [History Confirmed 12/11/23] dulaglutide 3 mg/0.5 mL subcutaneous pen injector (Trulicity) 3 mg subcut QWEEK 06/21/22 [History Confirmed 12/11/23] fluticasone propionate 50 mcg/actuation nasal spray,suspension 2 spray intranasal DAILY 06/21/22 [History Confirmed 12/11/23] insulin glargine 100 unit/mL (3 mL) subcutaneous pen (Lantus Solostar U-100 Insulin) 60 unit subcut QPM 06/21/22 [History Confirmed 12/11/23] metoprolol tartrate 50 mg tablet 50 mg PO BID 06/21/22 [History Confirmed 12/11/23] pantoprazole 40 mg tablet,delayed release 40 mg PO DAILY 06/21/22 [History Confirmed 12/11/23] quetiapine 50 mg tablet 50 mg PO QHS 06/21/22 [History Confirmed 12/11/23] ropinirole 0.5 mg tablet 0.5 mg PO QHS 06/21/22 [History Confirmed 12/11/23] insulin aspart U-100 100 unit/mL (3 mL) subcutaneous pen (Novolog FlexPen U-100 Insulin aspart) 0 units subcut TID.WM.HS #0 mL 06/24/22 [Rx Confirmed 12/11/23] dicyclomine 20 mg tablet 20 mg PO QID #20 tabs 03/21/23 [Rx Confirmed 12/11/23] methocarbamol 750 mg tablet 750 mg PO TID 03/27/23 [History Confirmed 12/11/23] blood sugar diagnostic #100 ea 03/28/23 [Rx Confirmed 12/11/23] blood-glucose meter #1 ea 03/28/23 [Rx Confirmed 12/11/23] lancets #100 ea 03/28/23 [Rx Confirmed 12/11/23] canagliflozin 100 mg tablet (Invokana) 100 mg PO TID 03/30/23 [History Confirmed 12/11/23] famotidine 20 mg tablet 20 mg PO QHS PRN acid reflux 03/30/23 [History Confirmed 12/11/23] ondansetron 4 mg disintegrating tablet 4 mg PO Q6H PRN Nausea 03/30/23 [History Confirmed 12/11/23] loperamide 2 mg capsule (Imodium A-D) 2 mg PO QID PRN loose stool 5 days #20 caps 09/27/23 [Rx Confirmed 12/11/23] donepezil 10 mg tablet 10 mg PO DAILY 12/11/23 [History Confirmed 12/11/23] Exam Physical Exam Vital Signs: Temp Pulse Resp BP Pulse Ox O2 Del Method 97.7 F 87 20 119/81 98 Room Air 12/11/23 08:00 12/11/23 08:00 12/11/23 08:00 12/11/23 08:00 12/11/23 08:00 12/11/23 08:00 Results - Psychiatry Labs 12/10/23 21:05 12/11/23 06:40 Psychiatry Labs: 12/10/23 12/10/23 12/10/23 21:05 21:45 22:20 RBC 5.13 Hgb 14.3 Hct 43.1 MCV 84.0 MCH 28.0 MCHC 33.3 RDW 14.9 H Plt Count 186 MPV 9.3 Sodium 132 L Potassium 2.4 L* Chloride 101 Carbon Dioxide 22.1 Anion Gap BUN 15 Creatinine 0.83 Calcium 9.0 Urine Color Yellow Urine Appearance Clear Urine pH 5.5 Ur Specific [place] 1.026 Urine Protein Negative Urine Glucose (UA) >=1000 H Urine Ketones Negative Urine Occult Blood Negative Urine Nitrite Negative Ur Leukocyte Esterase Negative 12/11/23 06:40 RBC Hgb Hct MCV MCH MCHC RDW Plt Count MPV Sodium 135 L Potassium 4.5 Chloride 104 Carbon Dioxide 28.0 Anion Gap 7.5 BUN 12 Creatinine 0.79 Calcium 8.6 Urine Color Urine Appearance Urine pH Ur Specific [place] Urine Protein Urine Glucose (UA) Urine Ketones Urine Occult Blood Urine Nitrite Ur Leukocyte Esterase Assessment/Plan (1) Suicidal ideation: (2) Acute hyperglycemia: (3) Acute hypokalemia: (4) Hypomagnesemia: Plan Admit to for management of depression and to ensure safety of self due to SI once medically clear. Monitor suicidal behaviors for safety of self (15-minute face check). Recommend attending groups and psychoeducation for building coping skills. Targeted symptoms and signs, possible therapeutic benefit, side effect and riskswere discussed. Case management will work on coordinating a safe discharge plan. I have reviewed evaluations by other providers (ER notes, nurses and staff). Documented By: Nigel Rdz MD 4 [id number] Signed By: <Electronically signed by iNgel Rdz MD> 12/11/23 1047 [facility] Work Phone: [phone]) 775-833404-18-2024 Progress note Author Alix Neff [facility] December 11, 2023 2:59pm Note Date/Time December 11, 2023 9:[address] [facility] [address] [place] [address] Hospitalist Progress Note Signed Patient: Mannie Michel MR#: [id number] : 1960 Acct:[id number] Age/Sex: 63 / M Adm Date: 4 Loc: Room: [address] [place] [address] Type: ADM INOo Attending Dr: Alix Neff MD Copies to: ~ Date of Service: 12/11/2023 Subjective Subjective Narrative: Patient was seen and evaluated. patient denies having chest pain, palpitations, shortness of breath, abdominal pain, increased urination. He becomes emotional when thinking about his . He did express his previous SI thoughts and plans he considered. Denies having firearms at home. He does have3 daughters. He still talks to one of his daughters who lives in [place] and has an autistic son. He is concerned about being at home alone with his thoughts, and requested help. Telemetry reviewed No events overnight general: ANO x3, cooperative, emotional Cardiovascular: Regular rate and rhythm, no rubs murmurs or gallops, Respiratory: Clear to auscultation bilaterally, no rhonchi or wheezing, Abdomen: Soft, nondistended, nontender to palpation Extremities: No edema Psych: Emotional, depressed, confirms SI and rumination on plans Exam Physical Exam Vital Signs: Temp Pulse Resp BP Pulse Ox O2 Del Method 97.7 F 87 20 119/81 98 Room Air 12/11/23 08:00 12/11/23 08:00 12/11/23 08:00 12/11/23 08:00 12/11/23 08:00 12/11/23 08:00 Objective Lab Results 12/10/23 21:05 12/11/23 06:40 ABG Interpretation ABG results: 12/10/23 23:25 VBG pH 7.35 VBG pCO2 39.3 VBG pO2 45.6 H VBG HCO3 21.1 L VBG Total CO2 22.3 L VBG O2 Saturation 82.4 H VBG Base Excess -4.1 L Meds Allergies and Active Meds Allergies codeine Allergy (Verified 12/10/23 21:01) dizzy latex Allergy (Verified 12/10/23 21:01) Rash Active Meds: Active Medications Generic Name Dose Route Start Last Admin Trade Name Fabien PRN Reason Stop Dose Admin Atorvastatin Calcium 80 mg 12/11/23 22:00 Atorvastatin 80 Mg Tablet PO 12/10/24 21:59 HS RIYA Citalopram Hydrobromide 40 mg 12/11/23 09:00 12/11/23 08:57 Citalopram 40 Mg Tablet PO 12/10/24 08:59 40 mg DAILY RIYA Administration Clopidogrel Bisulfate 75 mg 12/11/23 09:00 12/11/23 08:57 Clopidogrel Bisulfate 75 Mg Tablet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 sudden severe pain in your arms, neck, jaw, teeth, or back. You suddenly feel sweaty, dizzy, or light-headed. You have chest pain or shortness of breath. You vomit and the vomit is green, yellow, or black, or it looks like blood or coffee grounds. Your stool is red, bloody, or black. You have a fever. You cannot swallow, drink, or eat. These symptoms may represent a serious problem that is an emergency. Do not wait to see if the symptoms will go away. Get medical help right away. Call your local emergency services (911 in the [place] Do not drive yourself to the hospital. Summary Esophagitis is inflammation of the esophagus. Most causes of esophagitis are not serious. Follow your health care provider's instructions about eating and drinking. Contact a health care provider if you have new symptoms, have weight loss, or coughing that does not stop. Get help right away if you have severe pain in the arms, neck, jaw, teeth, or back, or if you have chest pain, shortness of breath, or fever. This information is not intended to replace advice given to you by your health care provider. Make sure you discuss any questions you have with your health care provider. Document Revised: 02/19/2021 Document Reviewed: 02/19/2021 [employer] Patient Education 2022 [employer]. Follow Up Care 04/02/2023 12:26:07 With:Kaela Rosa CNP Address: When:1 to 2 weeks Comments:Following EGD/Colonoscopy. [facility] [id number] NoteThiaylin MENDOZA was contacted by ED staff today regarding patient's needs for a glucometer and DM education. REJI made a tc to [facility] for Dr. Janki Rdz (patient's PCP) and left a message requesting she contact REJI to discuss this. REJI will remain available. This SW spoke to patient and was informed that he has switched PCPs and is no longer seeing Dr. Janki Rdz. He has switched to a provider through [facility] and states she is aware he wants a continuous blood glucose meter. He is scheduled to see her again on Friday of this week and will follow up with her. He does have a manual glucometer. REJI made another tc to [facility], [facility] and let her know she could disregard the previous message. [facility]08-06-2023 Discharge summary Author Yunior Singh [facility] March 30, 2023 12:37pm Note Date/Time March 30, 2023 12: 32pm [facility] [address] [place] [address] Discharge Summary Signed Patient: Mannie Michel MR#: [id number] : 1960 Acct:[id number] Age/Sex: 62 / M Adm Date: 3 Loc: Room: [address] [place] [address]: Yunior Singh MD Copies to: [facility] [place] Yunior Singh MD~ Providers Date of Discharge: 03/30/23 Discharging Provider: Yunior Singh Primary Care Provider: Jonna [facility] Consults: 03/26/23 20:46 Consult to Pulmonology Routine 03/27/23 16:20 Consult to Gastroenterology Routine 03/28/23 11:44 Consult to Occupational Therapy Routine Consult to Physical Therapy Routine Discharge Diagnosis (1) DKA (diabetic ketoacidosis): (2) Vomiting: (3) Hypertension: (4) Left knee pain: (5) Positive fecal occult blood test: Final Diagnosis Final Discharge Diagnosis: As above Summary Hospital Course Hospital course: Patient is 62-year-old male with past medical history of insulin-dependent diabetes, hypertension, obstructive sleep apnea and coronary artery disease. Hepresented to ER with complaint of generalized weakness and dizziness. He was seen in the ER earlier his labs showed metabolic acidosis. Due to persistent symptoms he again presented to ER and was found to be in severe DKA. He did mention that he recently moved to a new apartment and has lost his glucometer has not been able to check his blood glucose. He was admitted to ICU and started on insulin drip as per protocol. Recent labs also showed positive occult blood with stable H&H. Seen by GI service with recommendation of outpatient colonoscopy and no acute endoscopic evaluation recommended. H&H remained stable will be continued on PPI. Gradually his condition improved and has been switched to long-acting insulin with no further acidosis. Yesterday hecomplained of severe left knee pain which showed extensive patellar chondromalacia. Knee brace has been placed with improvement and patient will bedischarged home. He did mention that he cannot follow orthopedic services due to billing issue. Might need referral to other orthopedic if knee pain worsens or if an option of knee arthroplasty. Patient it appears recently started on Invokana that could lead to DKA recommend to discontinue that. Condition Condition at Discharge: Stable Status at Discharge Functional status at discharge: independent ambulation Overall status at discharge: patient is back to baseline Time Spent with Patient Time spent providing/coordinating discharge services (# min): 35 Diagnostic Studies Completed and Pending Studies Labs on day of discharge: 03/30/23 11:27: POC Glucose 341 03/30/23 07:42: POC Glucose 197, POC Glucose Comment Glu2: cleaned meter 03/30/23 06:36: PHA Creatinine Clear 121.59, Sodium 137, Potassium 3.7, [id number], Carbon Dioxide 27.9, Anion Gap 9.8, BUN 11, Creatinine 0.85, Est GFR (CKD-EPI) > 60.0, Glucose 213 H, Calcium 8.4 L 03/30/23 06:36: Corrected WBC 4.4, Uncorrected WBC Count 4.4, RBC 4.99, Hgb 14.1, Hct 40.8, MCV 81.7 L, MCH 28.2, MCHC 34.5, RDW 14.3, Plt Count 148 L, MPV 8.7, Neut % (Auto) 51.2, Lymph % (Auto) 30.9, [place] % (Auto) 14.3, Eos % (Auto) 3.2, Baso % (Auto) 0.4, Nucleat RBC Rel Count 0.1, Neut # (Auto) 2.3, Lymph # (Auto) 1.4, [place] # (Auto) 0.6, Eos # (Auto) 0.1, Baso # (Auto) 0.0 03/29/23 20:43: POC Glucose 247, POC Glucose Comment Glu2: cleaned meter 03/29/23 16:23: POC Glucose 160 03/29/23 11:59: POC Glucose 303, POC Glucose Comment Glu2: cleaned meter 03/29/23 08:49: POC Glucose 179, POC Glucose Comment Glu2: cleaned meter Exam Physical Exam Vital Signs: Temp Pulse Resp BP Pulse Ox O2 Del Method 97.7 F 67 16 110/79 97 Room Air 03/30/23 07:40 03/30/23 11:18 03/30/23 11:18 03/30/23 11:18 03/30/23 11:18 03/30/23 11:18 Const General: cooperative Nutritional Appearance: obese Orientation: alert, awake and oriented x3 Resp Effort & Inspection: normal respiratory effort and able to speak in complete sentences Auscultation: no rales, no rhonchi and no wheezes Cardio Rate: regular rate Rhythm: regular rhythm Heart Sounds: S1 normal and S2 normal GI Palpation: soft, not firm, no guarding and nontender Neuro General: patient alert, patient awake, patient oriented x3, moves all extremities and no focal motor deficits Cranial Nerves: CN's II-XII intact bilaterally Speech: speech normal Motor: muscle tone normal throughout and strength 5/5 throughout Sensory Exam: no sensory deficits noted Extrem General: no clubbing, cyanosis or edema and no calf tenderness Psych Appearance: grossly normal Discharge Plan Discharge Plan Patient Disposition: Home Health Services Activity: No Activity Restriction Diet: Diabetic Additional Instructions: Home Health to manage care: - Full code - PT/OT eval and treat - Routine vital signs - Medication management and education - Weight bearing as tolerated - Maintain knee immobilizer - Fingerstick blood sugar ACHS - Keep a log of your blood sugars and take with your to your follow-up appointments - Do not take Invokana if you have been recently prescribed until seen your familyphysician. Prescriptions: New (DME) blood-glucose meter Kit Qty: 1 0RF Rx Instructions: FSBS AC/HS (DME) blood sugar diagnostic Strip Qty: 100 0RF Rx Instructions: FSBS ACHS (DME) lancets Misc Qty: 100 0RF Rx Instructions: FSBS AC/HS Continued metformin 500 mg tablet 1,000 mg PO BID Patient Comments: atorvastatin 80 mg tablet 80 mg PO HS Patient Comments: take 1 tablet by mouth at bedtime prochlorperazine maleate 5 mg tablet 5 mg PO Q8H PRN (Reason: Nausea) Patient Comments: take 1 tablet by mouth every 8 hours if needed gabapentin 400 mg capsule 1,200 mg PO TID Patient Comments: meclizine 25 mg tablet 25 mg PO Q8H PRN (Reason: Dizziness) Patient Comments: take 1 tablet by mouth every 8 hours if needed cholecalciferol (vitamin D3) 5,000 unit capsule 5,000 unit PO DAILY Patient Comments: take 1 capsule by mouth once daily insulin aspart U-100 100 unit/mL insulin pen 3 units subcut QID Patient Comments: inject 3 units subcutaneously PER 10 CARBS FOUR TIMES PER DAY insulin glargine 100 unit/mL (3 mL) insulin pen 64 unit subcut QAM Patient Comments: lisinopril 5 mg Tablet 2.5 mg PO DAILY naproxen 500 mg tablet 500 mg PO BID PRN (Reason: pain) Qty: 20 0RF Rx Instructions: administer with food or milk lidocaine 5 % adhesive patch,medicated 1 patch topical Q24H Qty: 15 0RF Rx Instructions: leave on most painful area for up to 12 hrs dicyclomine 20 mg tablet 20 mg PO QID Qty: 20 0RF methocarbamol 750 mg tablet Patient Comments: TAKE 1 TABLET BY MOUTH EVERY 8 HOURS primidone [Mysoline] 50 mg tablet 100 mg PO TID Patient Comments: take 2 tablets by mouth three times a day clopidogrel 75 mg tablet 75 mg PO DAILY Patient Comments: take 1 tablet by mouth once daily nitroglycerin 0.4 mg Tablet, Sublingual 0.4 mg SUBLINGUAL Q5M PRN (Reason: Chest Pain) Rx Instructions: up to 3 doses furosemide 20 mg tablet 20 mg PO DAILY Patient Comments: take 1 tablet by mouth once daily citalopram 40 mg Tablet 40 mg PO DAILY Hold Instructions: Resume on 06/30/22. pantoprazole 40 mg Tablet,Delayed Release (Dr/Ec) 40 mg PO DAILY ropinirole 0.5 mg tablet 0.5 mg PO QHS Patient Comments: TAKE 1 TABLET BY MOUTH 1 TO 3 HOURS BEFORE BEDTIME DAILY metoprolol tartrate 50 mg tablet 50 mg PO BID Patient Comments: take 1 tablet by mouth every 12 hours fluticasone propionate 50 mcg/actuation spray,suspension 2 spray INTRANASAL DAILY Patient Comments: INSTILL 2 SPRAYS INTO EACH NOSTRIL ONCE DAILY. quetiapine 50 mg Tablet 50 mg PO QHS insulin glargine [Lantus Solostar U-100 Insulin] 100 unit/mL (3 mL) Insulin Pen 60 unit SUBCUT QPM Trulicity 3 mg/0.5 mL Pen Injector 3 mg SUBCUT QWEEK insulin aspart U-100 [Novolog FlexPen U-100 Insulin] 100 unit/mL (3 mL) Insulin Pen 0 units subcut TID.WM.HS Qty: 0 0RF Discontinued omeprazole 40 mg capsule,delayed release(DR/EC) 40 mg PO DAILY Patient Comments: take 1 capsule by mouth once daily methocarbamol 750 mg tablet 750 mg PO TID Qty: 20 0RF ondansetron 4 mg tablet,disintegrating 4 mg PO QID PRN (Reason: nausea and vomiting) Qty: 12 0RF omeprazole 20 mg capsule,delayed release(DR/EC) 20 mg PO DAILY Qty: 14 0RF famotidine [Pepcid] 20 mg tablet 20 mg PO BID Qty: 20 0RF ondansetron 4 mg tablet,disintegrating 4 mg PO Q6H PRN (Reason: nausea and vomiting) Qty: 7 0RF famotidine 20 mg Tablet 20 mg PO QHS PRN (Reason: Acid Reflux) meclizine [Antivert] 25 mg tablet,chewable 25 mg PO TID PRN (Reason: dizziness) Qty: 20 0RF Follow Up: Manuel Gage MD [Active Staff] - (Call office on Friday to schedule follow-up with GI to arrange outpatient testing. ) [facility] [Primary Care Provider] - 04/01/23 8:45 am (You have been scheduled for a follow up appointment for the following date and time, please call to reschedule if needed.) Documented By: Yunior Singh MD 03/30/23 1231 Signed By: <Electronically signed by Yunior Singh MD> 03/30/23 1237 [facility] Work Phone: 1(428) 596-390908-05-2023 Progress note Author Yunior Singh [facility] March 29, 2023 5:13pm Note Date/Time March 29, 2023 5:[address] [facility] [address] [place] [address] Hospitalist Progress Note Signed Patient: Mannie Michel MR#: [id number] : 1960 Acct:[id number] Age/Sex: 62 / M Adm Date: 3 Loc: Room: [address] [place] [address] Type: ADM IN Attending Dr: Yunior Singh MD Copies to: ~ Date of Service: 03/29/2023 Subjective Subjective Narrative: On examination patient complaining of significant left knee pain which appears swollen and tender. X-ray showing extensive patellar chondromalacia. Exam Physical Exam Vital Signs: Temp Pulse Resp BP Pulse Ox O2 Del Method 97.9 F 69 16 119/71 98 Room Air 03/29/23 12:00 03/29/23 14:58 03/29/23 14:58 03/29/23 14:58 03/29/23 14:58 03/29/23 14:59 Const General: cooperative Nutritional Appearance: obese Orientation: alert, awake and oriented x3 Resp Effort & Inspection: normal respiratory effort and able to speak in complete sentences Auscultation: no rales, no rhonchi and no wheezes Cardio Rate: regular rate Rhythm: regular rhythm Heart Sounds: S1 normal and S2 normal GI Palpation: soft, not firm, no guarding and nontender Neuro General: patient alert, patient awake, patient oriented x3, moves all extremities and no focal motor deficits Cranial Nerves: CN's II-XII intact bilaterally Speech: speech normal Motor: muscle tone normal throughout and strength 5/5 throughout Sensory Exam: no sensory deficits noted Extrem General: no clubbing, cyanosis or edema and no calf tenderness Objective Lab Results 03/29/23 04:34 03/29/23 04:34 Meds Allergies and Active Meds Allergies codeine Allergy (Verified 03/26/23 16:44) Unknown Reaction latex Allergy (Verified 03/26/23 16:44) Rash Active Meds: Active Medications Generic Name Dose Route Start Last Admin Trade Name Freq PRN Reason Stop Dose Admin Acetaminophen 650 mg 03/27/23 08:26 03/27/23 09:20 Acetaminophen 325 Mg Tablet PO 03/26/24 08:25 650 mg Q6H PRN Administration Pain Atorvastatin Calcium 80 mg 03/27/23 22:00 03/28/23 21:25 Atorvastatin 80 Mg Tablet PO 03/26/24 21:59 80 mg HS RIYA Administration Calcium Carbonate 1,000 mg 03/27/23 03:10 03/27/23 03:48 Calcium Carbonate 500 Mg Tab.Chew PO 03/26/24 03:09 1,000 mg Q4H PRN Administration Dyspepsia Citalopram Hydrobromide 40 mg 03/28/23 09:00 03/29/23 09:58 Citalopram 40 Mg Tablet PO 03/27/24 08:59 40 mg DAILY RIYA Administration Clopidogrel Bisulfate 75 mg 03/27/23 09:00 03/29/23 08:50 Clopidogrel Bisulfate 75 Mg Tablet PO 03/26/24 08:59 75 mg DAILY RIYA Administration Dextrose 25 gm 03/26/23 20:46 Dextrose 50% In Water 25 Gm/50 Ml Syringe IV-PUSH 03/25/24 20:45 PRN PRN Hypoglycemia Diclofenac Sodium 2 gm 03/29/23 14:00 03/29/23 13:16 Diclofenac Sodium 1% Gel 50 Gm Tube TOPICAL 03/28/24 13:59 2 gm TID RIYA Administration Dicyclomine HCl 20 mg 03/28/23 14:00 03/29/23 13:14 Dicyclomine 20 Mg Tablet PO 03/27/24 13:59 20 mg QID RIYA Administration Gabapentin 1,200 mg 03/27/23 22:00 03/29/23 13:14 Gabapentin 400 Mg Capsule PO 03/26/24 21:59 1,200 mg TID RIYA Administration Glucose 0 gm 03/26/23 20:46 Dextrose 40% Gel 15 Gm Tube PO 03/25/24 20:45 PRN PRN Hypoglycemia Insulin Aspart 0 units 03/28/23 12:00 03/29/23 12:01 Insulin Aspart 300 Units/3 Ml Insuln.Pen SUBCUT 03/27/24 11:59 7 units TID.WITH.MEALS RIYA Administration Protocol Insulin Glargine 20 units 03/28/23 09:00 03/29/23 08:52 Insulin Glargine 300 Units/3 Ml Insuln.Pen SUBCUT 03/27/24 08:59 20 units DAILY RIYA Administration Insulin Glargine 10 units 03/28/23 22:00 03/28/23 21:31 Insulin Glargine 300 Units/3 Ml Insuln.Pen SUBCUT 03/27/24 21:59 10 units QHS RIYA Administration Lisinopril 2.5 mg 03/29/23 09:00 03/29/23 08:50 Lisinopril 2.5 Mg Tablet PO 03/28/24 08:59 2.5 mg DAILY RIYA Administration Melatonin 5 mg 03/27/23 22:00 03/28/23 21:24 Melatonin 5 Mg Tablet PO 03/26/24 21:59 5 mg QHS RIYA Administration Methocarbamol 750 mg 03/28/23 14:00 03/29/23 13:14 Methocarbamol 500 Mg Tablet PO 03/27/24 13:59 750 mg TID RIYA Administration Metoprolol Tartrate 50 mg 03/28/23 21:00 03/29/23 08:51 Metoprolol Tartrate 50 Mg Tablet PO 03/27/24 20:59 50 mg BID RIYA Administration Neomycin/Polymyxin/Pramoxine 1 applic 03/26/23 22:15 03/28/23 21:33 Neomycin/Polymyx/Pramoxine 14.2 Gm Tube TOPICAL 03/25/24 22:14 1 applic Q1D RIYA Administration Ondansetron HCl 4 mg 03/27/23 03:10 03/27/23 03:49 Ondansetron Odt 4 Mg Tab.Rapdis PO 03/26/24 03:09 4 mg Q6HR PRN Administration Nausea And Vomiting Pantoprazole Sodium 40 mg 03/27/23 21:00 03/29/23 08:50 Pantoprazole 40 Mg Tablet. PO 03/26/24 20:59 40 mg BID RIYA Administration Primidone 100 mg 03/28/23 14:00 03/29/23 13:14 Primidone 50 Mg Tablet PO 03/27/24 13:59 100 mg TID RIYA Administration Prochlorperazine Edisylate 10 mg 03/27/23 03:10 Prochlorperazine Edisylate 10 Mg/2 Ml Vial IV-PUSH 03/26/24 03:09 Q4H PRN Nausea And Vomiting Quetiapine Fumarate 50 mg 03/27/23 22:00 03/28/23 21:26 Quetiapine Fumarate 50 Mg Tablet PO 03/26/24 21:59 50 mg QHS RIYA Administration Ropinirole HCl 0.5 mg 03/27/23 22:00 03/28/23 21:26 Ropinirole 0.5 Mg Tablet PO 03/26/24 21:59 0.5 mg QHS RIYA Administration Vitamin D 125 mcg 03/28/23 09:00 03/29/23 08:50 Cholecalciferol 125 Mcg (5,000 Units) Capsule PO 03/27/24 08:59 125 mcg DAILY RIYA Administration A&P - Hospitalist Assessment/Plan (1) DKA (diabetic ketoacidosis): (2) Vomiting: (3) Hypertension: (4) Left knee pain: (5) Positive fecal occult blood test: Plan DKA has resolved with stable H&H. Continue basal insulin with sliding scale coverage. Patient complaining of severe left knee pain with difficulty ambulating. X-ray showing extensive patellar chondromalacia. Arrange for knee brace and start him on Voltaren gel for pain. Monitor overnight to make sure heis able to ambulate and weightbearing on the left knee prior to discharge. Continue Plavix, statin, metoprolol and lisinopril for hypertension. Documented By: Yunior Singh MD 03/29/231709 Signed By: <Electronically signed by Yunior Singh MD> 03/29/231712 [facility] Work Phone: [phone]) 726-292808-04-2023 Progress note Author Yunior Singh [facility] March 28, 2023 3:51pm Note Date/Time March 28, 2023 3:[address] [facility] [address] [place] [address] Hospitalist Progress Note Signed Patient: Mannie Michel MR#: [id number] : 1960 Acct:[id number] Age/Sex: 62 / M Adm Date: 3 Loc: Room: [address] [place] [address] Type: ADM IN Attending Dr: Yunior Singh MD Copies to: ~ Date of Service: 03/28/2023 Subjective Subjective Narrative: Patient examined at bedside and complaining of generalized weakness. Anion gap has closed and has been transitioned to basal insulin. He has not been out of the bed. Exam Physical Exam Vital Signs: Temp Pulse Resp BP Pulse Ox O2 Del Method 97.9 F 72 16 132/79 98 Room Air 03/28/23 12:03/28/23 12:03/28/23 12:03/28/23 12:03/28/23 12:03/28/23 12:00 Const General: cooperative Nutritional Appearance: obese Orientation: alert, awake and oriented x3 Resp Effort & Inspection: normal respiratory effort and able to speak in complete sentences Auscultation: no rales, no rhonchi and no wheezes Cardio Rate: regular rate Rhythm: regular rhythm Heart Sounds: S1 normal and S2 normal GI Palpation: soft, not firm, no guarding and nontender Neuro General: patient alert, patient awake, patient oriented x3, moves all extremities and no focal motor deficits Cranial Nerves: CN's II-XII intact bilaterally Speech: speech normal Motor: muscle tone normal throughout and strength 5/5 throughout Sensory Exam: no sensory deficits noted Extrem General: no clubbing, cyanosis or edema and no calf tenderness Psych Appearance: grossly normal Objective Lab Results 03/28/23 07:17 03/28/23 07:17 Meds Allergies and Active Meds Allergies codeine Allergy (Verified 03/26/23 16:44) Unknown Reaction latex Allergy (Verified 03/26/23 16:44) Rash Active Meds: Active Medications Generic Name Dose Route Start Last Admin Trade Name Freq PRN Reason Stop Dose Admin Acetaminophen 650 mg 03/27/23 08:26 03/27/23 09:20 Acetaminophen 325 Mg Tablet PO 03/26/24 08:25 650 mg Q6H PRN Administration Pain Atorvastatin Calcium 80 mg 03/27/23 22:00 03/27/23 21:08 Atorvastatin 80 Mg Tablet PO 03/26/24 21:59 80 mg HS RIYA Administration Calcium Carbonate 1,000 mg 03/27/23 03:10 03/27/23 03:48 Calcium Carbonate 500 Mg Tab.Chew PO 03/26/24 03:09 1,000 mg Q4H PRN Administration Dyspepsia Citalopram Hydrobromide 40 mg 03/28/23 09:00 03/28/23 09:28 Citalopram 40 Mg Tablet PO 03/27/24 08:59 40 mg DAILY RIYA Administration Clopidogrel Bisulfate 75 mg 03/27/23 09:00 03/28/23 09:29 Clopidogrel Bisulfate 75 Mg Tablet PO 03/26/24 08:59 75 mg DAILY RIYA Administration Dextrose 25 gm 03/26/23 20:46 Dextrose 50% In Water 25 Gm/50 Ml Syringe IV-PUSH 03/25/24 20:45 PRN PRN Hypoglycemia Dicyclomine HCl 20 mg 03/28/23 14:00 03/28/23 14:22 Dicyclomine 20 Mg Tablet PO 03/27/24 13:59 20 mg QID RIYA Administration Gabapentin 1,200 mg 03/27/23 22:00 03/28/23 14:22 Gabapentin 400 Mg Capsule PO 03/26/24 21:59 1,200 mg TID RIYA Administration Glucose 0 gm 03/26/23 20:46 Dextrose 40% Gel 15 Gm Tube PO 03/25/24 20:45 PRN PRN Hypoglycemia Dextrose/Sodium Chloride 1,000 mls @ 100 mls/hr 03/26/23 22:15 03/28/23 11:07 5 % Dextrose-0.9 % Nacl IV 03/25/24 22:14 0 mls/hr .Q10H RIYA Infusion Insulin Aspart 0 units 03/28/23 12:00 03/28/23 12:11 Insulin Aspart 300 Units/3 Ml Insuln.Pen SUBCUT 03/27/24 11:59 3 units TID.WITH.MEALS RIYA Administration Protocol Insulin Glargine 20 units 03/28/23 09:00 03/28/23 08:19 Insulin Glargine 300 Units/3 Ml Insuln.Pen SUBCUT 03/27/24 08:59 20 units DAILY RIYA Administration Lisinopril 2.5 mg 03/29/23 09:00 Lisinopril 2.5 Mg Tablet PO 03/28/24 08:59 DAILY RIYA Melatonin 5 mg 03/27/23 22:00 03/27/23 21:08 Melatonin 5 Mg Tablet PO 03/26/24 21:59 5 mg QHS RIYA Administration Methocarbamol 750 mg 03/28/23 14:00 03/28/23 14:22 Methocarbamol 500 Mg Tablet PO 03/27/24 13:59 750 mg TID RIYA Administration Metoprolol Tartrate 50 mg 03/28/23 21:00 Metoprolol Tartrate 50 Mg Tablet PO 03/27/24 20:59 BID RIYA Neomycin/Polymyxin/Pramoxine 1 applic 03/26/23 22:15 03/27/23 22:34 Neomycin/Polymyx/Pramoxine 14.2 Gm Tube TOPICAL 03/25/24 22:14 Not Given Q1D [facility] Ondansetron HCl 4 mg 03/27/23 03:10 03/27/23 03:49 Ondansetron Odt 4 Mg Tab.Rapdis PO 03/26/24 03:09 4 mg Q6HR PRN Administration Nausea And Vomiting Pantoprazole Sodium 40 mg 03/27/23 21:00 03/28/23 09:29 Pantoprazole 40 Mg Tablet. PO 03/26/24 20:59 40 mg BID RIYA Administration Primidone 100 mg 03/28/23 14:00 03/28/23 14:24 Primidone 50 Mg Tablet PO 03/27/24 13:59 100 mg TID RIYA Administration Prochlorperazine Edisylate 10 mg 03/27/23 03:10 Prochlorperazine Edisylate 10 Mg/2 Ml Vial IV-PUSH 03/26/24 03:09 Q4H PRN Nausea And Vomiting Quetiapine Fumarate 50 mg 03/27/23 22:00 03/27/23 21:08 Quetiapine Fumarate 50 Mg Tablet PO 03/26/24 21:59 50 mg QHS RIYA Administration Ropinirole HCl 0.5 mg 03/27/23 22:00 03/27/23 21:08 Ropinirole 0.5 Mg Tablet PO 03/26/24 21:59 0.5 mg QHS RIYA Administration Vitamin D 125 mcg 03/28/23 09:00 03/28/23 09:29 Cholecalciferol 125 Mcg (5,000 Units) Capsule PO 03/27/24 08:59 125 mcg DAILY RIYA Administration A&P - Hospitalist Assessment/Plan (1) DKA (diabetic ketoacidosis): (2) Vomiting: (3) Hypertension: Plan Anion gap has closed with resolution of acidosis and has been transitioned to basal insulin. Transfer him to medical floor and monitor. Consult PT/OT. Regarding recent stool for occult blood GI has been consulted. H&H has been stable. We will see level came back at 11.2 and will require diabetic educationwith close monitoring as an outpatient. Given his sensation of DKA will recommend avoiding Invokana as a possible cause. He will require glucose meter on discharge. Replace potassium. Continue sliding scale coverage, Plavix, metoprolol, lisinopril and PPI. DVT prophylaxis with SCDs. Documented By: Yunior Singh MD 03/28/23 1545 Signed By: <Electronically signed by Yunior Singh MD> 03/28/23 1551 [facility] Work Phone: [phone] 297-927408-04-2023 Consult note Author Manuel Gage [facility] March 28, 2023 9:41am Note Date/Time March 28, 2023 9:[address] [facility] [address] [place] [address] Gastroenterology Consult Note Signed Patient: Mannie Michel MR#: [id number] : 1960 Acct:[id number] Age/Sex: 62 / M Adm Date: 3 Loc: Room: [address] [place] [address] Type: ADM IN Attending Dr: Yunior Singh MD Copies to: [facility] MD Yunior Oquendo MD~ HPI Data of Consult Date of Consultation: 03/28/23 Requesting Physician: Yunior Singh MD Consult Narrative History of present illness: Mr. Michel is a 62 year old male with past medical history of insulin- dependent diabetes, hypertension, hyperlipidemia, obstructive sleep apnea on CPAP and coronary disease status post PCI on Plavix who is currently hospitalized for diabetic ketoacidosis who gastroenterology is consulted for possible GI bleed. Patient denied melena hematochezia hematemesis or any signs of overt GI bleeding. He initially presented with abdominal pain nausea and vomiting however this morning he denied abdominal pain nausea or vomiting. He denies diarrhea change in bowel habits or unintentional weight loss. No family historyof colon cancer. Last colonoscopy was more than 10 years ago as per patient cc:: CC: Yunior Singh MD Review of Systems Review of Systems All other systems reviewed & are negative unless noted below or in HPI PMFSH Vaccinated for COVID-19?: Yes Medical History Diabetes Esophagitis Former smoker Gastric erosion Hyperlipidemia Hypertension Myocardial infarction Sleep apnea with use of continuous positive airway pressure (CPAP) Surgical History H/O endoscopy History of esophagogastroduodenoscopy (EGD) History of liver biopsy Stented coronary artery Family History Mother Heart trouble Social History Smoking Status: Former smoker Tobacco Type: cigarettes Substance Use Type: None Substance Abuse Comment: FORMER USER OF ETOH Meds Medications and Allergies Allergies codeine Allergy (Verified 03/26/23 16:44) Unknown Reaction latex Allergy (Verified 03/26/23 16:44) Rash Home Medications atorvastatin 80 mg tablet 80 mg PO HS 07/07/18 [History Confirmed 03/27/23] cholecalciferol (vitamin D3) 125 mcg (5,000 unit) capsule 5,000 unit PO DAILY 07/07/18 [History Confirmed 03/27/23] gabapentin 400 mg capsule 1,200 mg PO TID 07/07/18 [History Confirmed 03/27/23] insulin aspart U-100 100 unit/mL (3 mL) subcutaneous pen 3 units subcut QID 07/07/18 [History Confirmed 06/21/22] insulin glargine 100 unit/mL (3 mL) subcutaneous pen 64 unit subcut QAM 07/07/18[History Confirmed 06/21/22] lisinopril 5 mg tablet 2.5 mg PO DAILY 07/07/18 [History Confirmed 03/27/23] meclizine 25 mg tablet 25 mg PO Q8H PRN Dizziness 07/07/18 [History Confirmed 06/21/22] metformin 500 mg tablet 1,000 mg PO BID 07/07/18 [History Confirmed 03/27/23] naproxen 500 mg tablet 500 mg PO BID PRN pain #20 tabs 07/07/18 [Rx Confirmed 06/21/22] omeprazole 40 mg capsule,delayed release 40 mg PO DAILY 07/07/18 [History Confirmed 06/21/22] prochlorperazine maleate 5 mg tablet 5 mg PO Q8H PRN Nausea 07/07/18 [History Confirmed 06/21/22] clopidogrel 75 mg tablet 75 mg PO DAILY 06/15/20 [History Confirmed 03/27/23] furosemide 20 mg tablet 20 mg PO DAILY 06/15/20 [History Confirmed 03/27/23] nitroglycerin 0.4 mg sublingual tablet 0.4 mg sublingual Q5M PRN Chest Pain 06/15/20 [History Confirmed 06/21/22] primidone 50 mg tablet (Mysoline) 100 mg PO TID 06/15/20 [History Confirmed 03/27/23] ondansetron 4 mg disintegrating tablet 4 mg PO Q6H PRN nausea and vomiting #7 tabs 12/11/20 [Rx Confirmed 06/21/22] lidocaine 5 % topical patch 1 patch topical Q24H #15 ea 06/16/21 [Rx Confirmed 06/21/22] methocarbamol 750 mg tablet 750 mg PO TID #20 tabs 06/16/21 [Rx Confirmed 03/27/23] citalopram 40 mg tablet 40 mg PO DAILY 06/21/22 [History Confirmed 03/27/23] dulaglutide 3 mg/0.5 mL subcutaneous pen injector (Trulicity) 3 mg subcut QWEEK 06/21/22 [History Confirmed 03/27/23] famotidine 20 mg tablet 20 mg PO QHS PRN Acid Reflux 06/21/22 [History Confirmed 03/27/23] fluticasone propionate 50 mcg/actuation nasal spray,suspension 2 spray intranasal DAILY 06/21/22 [History Confirmed 06/21/22] insulin glargine 100 unit/mL (3 mL) subcutaneous pen (Lantus Solostar U-100 Insulin) 60 unit subcut QPM 06/21/22 [History Confirmed 06/21/22] metoprolol tartrate 50 mg tablet 50 mg PO BID 06/21/22 [History Confirmed 03/27/23] pantoprazole 40 mg tablet,delayed release 40 mg PO DAILY 06/21/22 [History Confirmed 06/21/22] quetiapine 50 mg tablet 50 mg PO QHS 06/21/22 [History Confirmed 03/27/23] ropinirole 0.5 mg tablet 0.5 mg PO QHS 06/21/22 [History Confirmed 03/27/23] insulin aspart U-100 100 unit/mL (3 mL) subcutaneous pen (Novolog FlexPen U-100 Insulin aspart) 0 units (0 mL) subcut TID.WM.HS #0 mL 06/24/22 [Rx] meclizine 25 mg chewable tablet (Antivert) 25 mg PO TID PRN dizziness #20 tabs 11/20/22 [Rx Confirmed 03/27/23] dicyclomine 20 mg tablet 20 mg PO QID #20 tabs 03/21/23 [Rx Confirmed 03/27/23] ondansetron 4 mg disintegrating tablet 4 mg PO QID PRN nausea and vomiting #12 tabs 03/21/23 [Rx] famotidine 20 mg tablet (Pepcid) 20 mg PO BID #20 tabs 03/26/23 [Rx] omeprazole 20 mg capsule,delayed release 20 mg PO DAILY #14 caps 03/26/23 [Rx] methocarbamol 750 mg tablet mg 03/27/23 [History] Exam Physical Exam Vital Signs: Temp Pulse Resp BP Pulse Ox O2 Del Method 97.5 F L 63 18 120/67 98 Room Air 03/27/23 20:00 03/28/23 04:00 03/28/23 04:00 03/28/23 04:00 03/28/23 04:00 03/28/23 04:00 Narrative: General appearance: Pleasant, NAD Skin: No rashes or jaundice Neck: Supple Cardiac: No murmurs Lungs: CTA Abdomen: Soft, NT, ND, BS+. No HSM. Extremities: No edema. Neuro: Ox3. Results Labs Labs: Laboratory Results - last 24 hr 03/26/23 03/26/23 03/26/23 21:38 22:35 23:32 Corrected WBC Uncorrected WBC Count RBC Hgb Hct MCV MCH MCHC RDW Plt Count MPV Neut % (Auto) Lymph % (Auto) [place] % (Auto) Eos % (Auto) Baso % (Auto) Nucleat RBC Rel Count Neut # (Auto) Lymph # (Auto) [place] # (Auto) Eos # (Auto) Baso # (Auto) PHA Creatinine Clear Sodium Potassium Chloride Carbon Dioxide Anion Gap BUN Creatinine Est GFR (CKD-EPI) Glucose POC Glucose 181 148 122 POC Glucose Comment Glu2: cleaned meter Glu2: cleaned meter Estimat Average Glucose Hemoglobin A1c Calcium 03/27/23 03/27/23 03/27/23 00:37 01:33 03:11 Corrected WBC Uncorrected WBC Count RBC Hgb Hct MCV MCH MCHC RDW Plt Count MPV Neut % (Auto) Lymph % (Auto) [place] % (Auto) Eos % (Auto) Baso % (Auto) Nucleat RBC Rel Count Neut # (Auto) Lymph # (Auto) [place] # (Auto) Eos # (Auto) Baso # (Auto) PHA Creatinine Clear Sodium Potassium Chloride Carbon Dioxide Anion Gap BUN Creatinine Est GFR (CKD-EPI) Glucose POC Glucose 137 125 117 POC Glucose Comment Glu2: cleaned meter Glu2: cleaned meter Estimat Average Glucose Hemoglobin A1c Calcium 03/27/23 03/27/23 03/27/23 04:25 07:16 08:01 Corrected WBC Uncorrected WBC Count RBC Hgb Hct MCV MCH MCHC RDW Plt Count MPV Neut % (Auto) Lymph % (Auto) [place] % (Auto) Eos % (Auto) Baso % (Auto) Nucleat RBC Rel Count Neut # (Auto) Lymph # (Auto) [place] # (Auto) Eos # (Auto) Baso # (Auto) PHA Creatinine Clear Sodium Potassium Chloride Carbon Dioxide Anion Gap BUN Creatinine Est GFR (CKD-EPI) Glucose POC Glucose 144 133 POC Glucose Comment Glu2: cleaned meter Estimat Average Glucose 275 Hemoglobin A1c 11.2 H Calcium 03/27/23 03/27/23 03/27/23 09:06 09:11 10:10 Corrected WBC Uncorrected WBC Count RBC Hgb Hct MCV MCH MCHC RDW Plt Count MPV Neut % (Auto) Lymph % (Auto) [place] % (Auto) Eos % (Auto) Baso % (Auto) Nucleat RBC Rel Count Neut # (Auto) Lymph # (Auto) [place] # (Auto) Eos # (Auto) Baso # (Auto) PHA Creatinine Clear 110.80 Sodium 132 L Potassium 3.9 Chloride 103 Carbon Dioxide 19.1 L Anion Gap 13.8 BUN 13 Creatinine 0.93 Est GFR (CKD-EPI) > 60.0 Glucose 143 H POC Glucose 190 149 POC Glucose Comment Estimat Average Glucose Hemoglobin A1c Calcium 8.0 L 03/27/23 03/27/23 03/27/23 11:00 11:55 12:58 Corrected WBC Uncorrected WBC Count RBC Hgb Hct MCV MCH MCHC RDW Plt Count MPV Neut % (Auto) Lymph % (Auto) [place] % (Auto) Eos % (Auto) Baso % (Auto) Nucleat RBC Rel Count Neut # (Auto) Lymph # (Auto) [place] # (Auto) Eos # (Auto) Baso # (Auto) PHA Creatinine Clear Sodium Potassium Chloride Carbon Dioxide Anion Gap BUN Creatinine Est GFR (CKD-EPI) Glucose POC Glucose 169 166 180 POC Glucose Comment Estimat Average Glucose Hemoglobin A1c Calcium 03/27/23 03/27/23 03/27/23 13:58 14:46 14:59 Corrected WBC Uncorrected WBC Count RBC Hgb Hct MCV MCH MCHC RDW Plt Count MPV Neut % (Auto) Lymph % (Auto) [place] % (Auto) Eos % (Auto) Baso % (Auto) Nucleat RBC Rel Count Neut # (Auto) Lymph # (Auto) [place] # (Auto) Eos # (Auto) Baso # (Auto) PHA Creatinine Clear 101.02 Sodium 135 L Potassium 4.3 Chloride 104 Carbon Dioxide 19.7 L Anion Gap 15.6 H BUN 12 Creatinine 1.02 Est GFR (CKD-EPI) > 60.0 Glucose 136 H POC Glucose 162 140 POC Glucose Comment Estimat Average Glucose Hemoglobin A1c Calcium 8.1 L 03/27/23 03/27/23 03/27/23 15:58 16:57 17:55 Corrected WBC Uncorrected WBC Count RBC Hgb Hct MCV MCH MCHC RDW Plt Count MPV Neut % (Auto) Lymph % (Auto) [place] % (Auto) Eos % (Auto) Baso % (Auto) Nucleat RBC Rel Count Neut # (Auto) Lymph # (Auto) [place] # (Auto) Eos # (Auto) Baso # (Auto) PHA Creatinine Clear Sodium Potassium Chloride Carbon Dioxide Anion Gap BUN Creatinine Est GFR (CKD-EPI) Glucose POC Glucose 138 155 130 POC Glucose Comment Estimat Average Glucose Hemoglobin A1c Calcium 03/27/23 03/27/23 03/27/23 18:59 19:58 20:37 Corrected WBC Uncorrected WBC Count RBC Hgb Hct MCV MCH MCHC RDW Plt Count MPV Neut % (Auto) Lymph % (Auto) [place] % (Auto) Eos % (Auto) Baso % (Auto) Nucleat RBC Rel Count Neut # (Auto) Lymph # (Auto) [place] # (Auto) Eos # (Auto) Baso # (Auto) PHA Creatinine Clear 114.49 Sodium 133 L Potassium 3.9 Chloride 104 Carbon Dioxide 17.7 L Anion Gap 15.2 H BUN 11 Creatinine 0.90 Est GFR (CKD-EPI) > 60.0 Glucose 230 H POC Glucose 187 236 POC Glucose Comment Glu2: cleaned meter Estimat Average Glucose Hemoglobin A1c Calcium 7.7 L 03/27/23 03/27/23 03/28/23 21:15 23:20 01:09 Corrected WBC Uncorrected WBC Count RBC Hgb Hct MCV MCH MCHC RDW Plt Count MPV Neut % (Auto) Lymph % (Auto) [place] % (Auto) Eos % (Auto) Baso % (Auto) Nucleat RBC Rel Count Neut # (Auto) Lymph # (Auto) [place] # (Auto) Eos # (Auto) Baso # (Auto) PHA Creatinine Clear Sodium Potassium Chloride Carbon Dioxide Anion Gap BUN Creatinine Est GFR (CKD-EPI) Glucose POC Glucose 203 245 172 POC Glucose Comment Glu2: cleaned meter Glu2: cleaned meter Estimat Average Glucose Hemoglobin A1c Calcium 03/28/23 03/28/23 03/28/23 02:30 02:49 03:35 Corrected WBC Uncorrected WBC Count RBC Hgb Hct MCV MCH MCHC RDW Plt Count MPV Neut % (Auto) Lymph % (Auto) [place] % (Auto) Eos % (Auto) Baso % (Auto) Nucleat RBC Rel Count Neut # (Auto) Lymph # (Auto) [place] # (Auto) Eos # (Auto) Baso # (Auto) PHA Creatinine Clear 121.23 Sodium 133 L Potassium 3.6 Chloride 106 Carbon Dioxide 18.6 L Anion Gap 12.0 BUN 12 Creatinine 0.85 Est GFR (CKD-EPI) > 60.0 Glucose 165 H POC Glucose 175 157 POC Glucose Comment Glu2: cleaned meter Estimat Average Glucose Hemoglobin A1c Calcium 7.8 L 03/28/23 03/28/23 03/28/23 04:57 06:55 07:17 Corrected WBC 3.7 L Uncorrected WBC Count 3.7 L RBC 4.85 Hgb 13.5 Hct 39.6 MCV 81.8 L MCH 27.9 MCHC 34.1 RDW 14.3 Plt Count 149 L MPV 8.7 Neut % (Auto) 52.7 Lymph % (Auto) 28.6 [place] % (Auto) 14.4 Eos % (Auto) 3.5 Baso % (Auto) 0.8 Nucleat RBC Rel Count 0.3 Neut # (Auto) 2.0 Lymph # (Auto) 1.1 [place] # (Auto) 0.5 Eos # (Auto) 0.1 Baso # (Auto) 0.0 PHA Creatinine Clear Sodium Potassium Chloride Carbon Dioxide Anion Gap BUN Creatinine Est GFR (CKD-EPI) Glucose POC Glucose 140 144 POC Glucose Comment Estimat Average Glucose Hemoglobin A1c Calcium 03/28/23 07:17 Corrected WBC Uncorrected WBC Count RBC Hgb Hct MCV MCH MCHC RDW Plt Count MPV Neut % (Auto) Lymph % (Auto) [place] % (Auto) Eos % (Auto) Baso % (Auto) Nucleat RBC Rel Count Neut # (Auto) Lymph # (Auto) [place] # (Auto) Eos # (Auto) Baso # (Auto) PHA Creatinine Clear 123.94 Sodium 136 Potassium 3.4 L Chloride 107 Carbon Dioxide 21.0 Anion Gap 11.4 BUN 10 Creatinine 0.83 Est GFR (CKD-EPI) > 60.0 Glucose 139 H POC Glucose POC Glucose Comment Estimat Average Glucose Hemoglobin A1c Calcium 7.9 L A&P - Gastroenterology Assessment/Plan (1) Positive fecal occult blood test: Code(s): R19.5 - Other fecal abnormalities Status: Acute Plan Mr. Michel is a 62 year old male with past medical history of insulin- dependent diabetes, hypertension, hyperlipidemia, obstructive sleep apnea on CPAP and coronary disease status post PCI on Plavix who is currently hospitalized for diabetic ketoacidosis who gastroenterology is consulted for possible GI bleed. No evidence of overt bleeding Hemoglobin is stable 13.6--> 13.5 Patient is hemodynamically stable Patient is due for screening colonoscopy. FOBT is positive Will arrange for screening colonoscopy as an outpatient. No need for endoscopic evaluation as inpatient Documented By: Manuel Gage MD 03/28/2319 Signed By: <Electronically signed by Manuel Gage MD> 03/28/2341 [facility] Work Phone: [phone] Progress note Author Yunior Singh [facility] March 27, 2023 4:19pm Note Date/Time March 27, 2023 4:[address] [facility] [address] [place] [address] Hospitalist Progress Note Signed Patient: Mannie Michel MR#: [id number] : 1960 Acct:[id number] Age/Sex: 62 / M Adm Date: 3 Loc: Room: [address] [place] [address] Type: ADM IN Attending Dr: Yunior Singh MD Copies to: ~ Date of Service: 03/27/2023 Subjective Subjective Narrative: Patient examined at bedside with no overnight event. Currently denies any complaint of nausea or abdominal pain. On insulin drip with improvement in metabolic acidosis. A1c level came back 11.2. Exam Physical Exam Vital Signs: Temp Pulse Resp BP Pulse Ox O2 Del Method 97.8 F 68 18 111/61 97 Room Air 03/27/23 16:00 03/27/23 16:00 03/27/23 16:00 03/27/23 16:00 03/27/23 16:00 03/27/23 16:00 Const General: cooperative Nutritional Appearance: obese Orientation: alert, awake and oriented x3 Resp Effort & Inspection: normal respiratory effort and able to speak in complete sentences Auscultation: no rales, no rhonchi and no wheezes Cardio Rate: regular rate Rhythm: regular rhythm Heart Sounds: S1 normal and S2 normal GI Palpation: soft, not firm, no guarding and nontender Neuro General: patient alert, patient awake, patient oriented x3, moves all extremities and no focal motor deficits Cranial Nerves: CN's II-XII intact bilaterally Speech: speech normal Motor: muscle tone normal throughout and strength 5/5 throughout Sensory Exam: no sensory deficits noted Extrem General: no clubbing, cyanosis or edema and no calf tenderness Psych Appearance: grossly normal Objective Lab Results 03/27/23 04:33 03/27/23 14:46 Meds Allergies and Active Meds Allergies codeine Allergy (Verified 03/26/23 16:44) Unknown Reaction latex Allergy (Verified 03/26/23 16:44) Rash Active Meds: Active Medications Generic Name Dose Route Start Last Admin Trade Name Freq PRN Reason Stop Dose Admin Acetaminophen 650 mg 03/27/23 08:26 03/27/23 09:20 Acetaminophen 325 Mg Tablet PO 03/26/24 08:25 650 mg Q6H PRN Administration Pain Calcium Carbonate 1,000 mg 03/27/23 03:10 03/27/23 03:48 Calcium Carbonate 500 Mg Tab.Chew PO 03/26/24 03:09 1,000 mg Q4H PRN Administration Dyspepsia Clopidogrel Bisulfate 75 mg 03/27/23 09:00 03/27/23 08:05 Clopidogrel Bisulfate 75 Mg Tablet PO 03/26/24 08:59 75 mg DAILY RIYA Administration Dextrose 25 gm 03/26/23 20:46 Dextrose 50% In Water 25 Gm/50 Ml Syringe IV-PUSH 03/25/24 20:45 PRN PRN Hypoglycemia Glucose 0 gm 03/26/23 20:46 Dextrose 40% Gel 15 Gm Tube PO 03/25/24 20:45 PRN PRN Hypoglycemia Insulin Human Regular 100 unit in 100 mls @ 0 mls/hr 03/26/23 21:00 03/27/23 15:02 Myxredlin IV 03/25/24 20:59 1 units/hr .Q0M RIYA 1 mls/hr Titration Protocol Per Protocol Dextrose/Sodium Chloride 1,000 mls @ 100 mls/hr 03/26/23 22:15 03/27/23 07:46 5 % Dextrose-0.9 % Nacl IV 03/25/24 22:14 100 mls/hr .Q10H RIYA Administration Metoprolol Tartrate 50 mg 03/26/23 21:00 03/27/23 08:05 Metoprolol Tartrate 25 Mg Tablet PO 03/25/24 20:59 50 mg BID RIYA Administration Neomycin/Polymyxin/Pramoxine 1 applic 03/26/23 22:15 03/26/23 23:27 Neomycin/Polymyx/Pramoxine 14.2 Gm Tube TOPICAL 03/25/24 22:14 1 applic Q1D RIYA Administration Ondansetron HCl 4 mg 03/27/23 03:10 03/27/23 03:49 Ondansetron Odt 4 Mg Tab.Rapdis PO 03/26/24 03:09 4 mg Q6HR PRN Administration Nausea And Vomiting Pantoprazole Sodium 40 mg 03/27/23 09:00 03/27/23 08:05 Pantoprazole 40 Mg Tablet.Dr PO 03/26/24 08:59 40 mg DAILY RIYA Administration Prochlorperazine Edisylate 10 mg 03/27/23 03:10 Prochlorperazine Edisylate 10 Mg/2 Ml Vial IV-PUSH 03/26/24 03:09 Q4H PRN Nausea And Vomiting A&P - Hospitalist Assessment/Plan (1) DKA (diabetic ketoacidosis): (2) Vomiting: (3) Hypertension: Plan Continue insulin drip until anion gap is completely closed with resolution of acidosis. IV hydration with dextrose prevent hypoglycemia as long as patient terrell insulin drip. He was recently in the ER with stool positive for occult blood.Given history of coronary disease status post PCI in concern for GI bleed we will consult GI service. Will increase dose of PPI monitor H&H. Continue metoprolol DVT prophylaxis with SCDs. Continue Plavix for now Documented By: Yunior Singh MD 03/27/23 1606 Signed By: <Electronically signed by Yunior Singh MD> 03/27/23 1465 [facility] Work Phone: [phone] Consult note Author Manuelito Rivera [facility] March 27, 2023 11:25am Note Date/Time March 27, 2023 10: 57am [facility] [address] [place] [address] Pulmonology Consult Note Signed Patient: Mannie Michel MR#: [id number] : 1960 Acct:[id number] Age/Sex: 62 / M Adm Date: 3 Loc: Room: [address] [place] [address] Type: ADM IN Attending Dr: Yunior Singh MD Copies to: Manuelito Rivera, [facility] Yunior Singh MD~ HPI Date/Time of Consultation: Date of Service: 03/27/2023 Time of Service: 10:53 Consulting Provider: Manuelito Rivera Requesting Provider: Yunior Singh Reason for Consult: Diabetic ketoacidosis History of Present Illness History of present illness: The patient is a 62-year-old male, with a history as outlined below, who presented to the emergency department on March 26 with nausea, vomiting and epigastric discomfort. The patient has a medical history significant for insulin-dependent diabetes mellitus, obesity and obstructive sleep apnea on nocturnal PAP therapy. He also has a history of coronary artery disease status post PCI. The patient recently moved into a new home and has been unable to find his glucometer and associated diabetes supplies. On presentation to the emergency department, the patient was noted to be afebrile hemodynamically stable. He was maintaining appropriate oxygen saturations on room air. Initial laboratory evaluation demonstrated no evidenceof a leukocytosis. Coagulation profile was within normal limits. Chemistry profile was notable for a sodium of 131, chloride of 96 and normal creatinine. Bicarbonate was noted to be 13 with an anion gap of 26. Glucose was elevated at257. Lactate was within normal limits. Urinalysis was positive for 4+ ketones. Toxicology screen revealed an elevated beta hydroxybutyrate level. The patientultimately received supplemental IV fluid hydration and was placed on a continuous insulin infusion. The patient was admitted to the medical intensive care unit for management of his diabetic ketoacidosis. Review of Systems Review of Systems All other systems reviewed & are negative unless noted below or in HPI PMFSH Vaccinated for COVID-19?: Yes Medical History Diabetes Esophagitis Former smoker Gastric erosion Hyperlipidemia Hypertension Myocardial infarction Sleep apnea with use of continuous positive airway pressure (CPAP) Surgical History H/O endoscopy History of esophagogastroduodenoscopy (EGD) History of liver biopsy Stented coronary artery Family History Mother Heart trouble Social History Smoking Status: Former smoker Tobacco Type: cigarettes Substance Use Type: None Substance Abuse Comment: FORMER USER OF ETOH Meds Medications and Allergies Allergies codeine Allergy (Verified 03/26/23 16:44) Unknown Reaction latex Allergy (Verified 03/26/23 16:44) Rash Home Medications atorvastatin 80 mg tablet 80 mg PO HS 07/07/18 [History Confirmed 03/27/23] cholecalciferol (vitamin D3) 125 mcg (5,000 unit) capsule 5,000 unit PO DAILY 07/07/18 [History Confirmed 03/27/23] gabapentin 400 mg capsule 1,200 mg PO TID 07/07/18 [History Confirmed 03/27/23] insulin aspart U-100 100 unit/mL (3 mL) subcutaneous pen 3 units subcut QID 07/07/18 [History Confirmed 06/21/22] insulin glargine 100 unit/mL (3 mL) subcutaneous pen 64 unit subcut QAM 07/07/18[History Confirmed 06/21/22] lisinopril 5 mg tablet 2.5 mg PO DAILY 07/07/18 [History Confirmed 03/27/23] meclizine 25 mg tablet 25 mg PO Q8H PRN Dizziness 07/07/18 [History Confirmed 06/21/22] metformin 500 mg tablet 1,000 mg PO BID 07/07/18 [History Confirmed 03/27/23] naproxen 500 mg tablet 500 mg PO BID PRN pain #20 tabs 07/07/18 [Rx Confirmed 06/21/22] omeprazole 40 mg capsule,delayed release 40 mg PO DAILY 07/07/18 [History Confirmed 06/21/22] prochlorperazine maleate 5 mg tablet 5 mg PO Q8H PRN Nausea 07/07/18 [History Confirmed 06/21/22] clopidogrel 75 mg tablet 75 mg PO DAILY 06/15/20 [History Confirmed 03/27/23] furosemide 20 mg tablet 20 mg PO DAILY 06/15/20 [History Confirmed 03/27/23] nitroglycerin 0.4 mg sublingual tablet 0.4 mg sublingual Q5M PRN Chest Pain 06/15/20 [History Confirmed 06/21/22] primidone 50 mg tablet (Mysoline) 100 mg PO TID 06/15/20 [History Confirmed 03/27/23] ondansetron 4 mg disintegrating tablet 4 mg PO Q6H PRN nausea and vomiting #7 tabs 12/11/20 [Rx Confirmed 06/21/22] lidocaine 5 % topical patch 1 patch topical Q24H #15 ea 06/16/21 [Rx Confirmed 06/21/22] methocarbamol 750 mg tablet 750 mg PO TID #20 tabs 06/16/21 [Rx Confirmed 03/27/23] citalopram 40 mg tablet 40 mg PO DAILY 06/21/22 [History Confirmed 03/27/23] dulaglutide 3 mg/0.5 mL subcutaneous pen injector (Trulicity) 3 mg subcut QWEEK 06/21/22 [History Confirmed 03/27/23] famotidine 20 mg tablet 20 mg PO QHS PRN Acid Reflux 06/21/22 [History Confirmed 03/27/23] fluticasone propionate 50 mcg/actuation nasal spray,suspension 2 spray intranasal DAILY 06/21/22 [History Confirmed 06/21/22] insulin glargine 100 unit/mL (3 mL) subcutaneous pen (Lantus Solostar U-100 Insulin) 60 unit subcut QPM 06/21/22 [History Confirmed 06/21/22] metoprolol tartrate 50 mg tablet 50 mg PO BID 06/21/22 [History Confirmed 03/27/23] pantoprazole 40 mg tablet,delayed release 40 mg PO DAILY 06/21/22 [History Confirmed 06/21/22] quetiapine 50 mg tablet 50 mg PO QHS 06/21/22 [History Confirmed 03/27/23] ropinirole 0.5 mg tablet 0.5 mg PO QHS 06/21/22 [History Confirmed 03/27/23] insulin aspart U-100 100 unit/mL (3 mL) subcutaneous pen (Novolog FlexPen U-100 Insulin aspart) 0 units (0 mL) subcut TID.WM.HS #0 mL 06/24/22 [Rx] meclizine 25 mg chewable tablet (Antivert) 25 mg PO TID PRN dizziness #20 tabs 11/20/22 [Rx Confirmed 03/27/23] dicyclomine 20 mg tablet 20 mg PO QID #20 tabs 03/21/23 [Rx Confirmed 03/27/23] ondansetron 4 mg disintegrating tablet 4 mg PO QID PRN nausea and vomiting #12 tabs 03/21/23 [Rx] famotidine 20 mg tablet (Pepcid) 20 mg PO BID #20 tabs 03/26/23 [Rx] omeprazole 20 mg capsule,delayed release 20 mg PO DAILY #14 caps 03/26/23 [Rx] methocarbamol 750 mg tablet mg 03/27/23 [History] Exam Physical Exam Vital Signs: Temp Pulse Resp BP Pulse Ox O2 Del Method 97.8 F 72 14 123/65 98 Room Air 03/27/23 07:57 03/27/23 07:57 03/27/23 07:57 03/27/23 07:57 03/27/23 07:57 03/27/23 07:57 Narrative: General: No acute distress. Obese. Sitting in bedside recliner. Head: Normocephalic and atraumatic. Eyes: PERRLA. Neck: Supple. Trachea midline. Mouth: Moist mucous membranes. Pulmonary: Cardiovascular: Regular rate and rhythm. Normal S1 and S2. No M/R/G Abdomen: Soft, nontender and nondistended. Skin: Intact. Warm and dry. No lesions. Extremities: No clubbing, cyanosis or edema. Neurological: No focal deficits. Results Intake and Output I&O - Last 24 Hours: Intake & Output 03/26/23 03/27/23 03/27/23 23:59 07:59 15:59 Intake Total 1999 / 1999 1999 / 1999 Output Total 1700 / 1700 1000 / 1000 Balance 300 / 300 1000 / 1000 Weight 118.9 kg 118.9 kg Labs 03/27/23 04:33 03/27/23 09:06 Assessment/Plan (1) DKA (diabetic ketoacidosis): Plan The patient is hospital day #1 after presenting with diabetic ketoacidosis secondary to outpatient noncompliance. His hemoglobin A1c of 11.2 certainly suggest a component of outpatient noncompliance as well. The patient will be maintained on supplemental IV fluids and a continuous insulin infusion, per DKA protocol. We will continue with aggressive electrolyte repletion, as needed. Once anion gap has been closed x2, the patient can be transition to basal and sliding scale insulin coverage. Documented By: Manuelito Rivera DO 03/27/23 1053 Signed By: <Electronically signed by Manuelito Rivera DO> 03/27/23 8331 [facility] Work Phone: 1(832) 881-126008-02-2023 History and physical note Author Yunior Singh [facility] March 26, 2023 8:44pm Note Date/Time March 26, 2023 8:[address] [facility] [address] [place] [address] Hospitalist H&P Signed Patient: Mannie Michel MR#: [id number] : 1960 Acct:[id number] Age/Sex: 62 / M Adm Date: 3 Loc: Room: [address] [place] [address] Type: ADM IN Attending Dr: Yunior Singh MD Copies to: [facility] Yunior Singh MD~ HPI DATE OF EXAMINATION: 03/26/23 CHIEF COMPLAINT: Dizziness with generalized weakness along with vomiting. HISTORY OF PRESENT ILLNESS: Patient is a 62-year-old male with past medical history of insulin-dependent diabetes, hypertension, hyperlipidemia, obstructive sleep apnea on CPAP and other medical comorbidities including coronary disease status post PCI as per the record. Presented to ER with complaint of dizziness along with vomiting andin the ER was found to be severely acidotic with bicarb of 13.3 and beta hydroxybutyrate of 8. He was seen in the emergency room on of last month with abdominal pain and had a CT abdomen/pelvis which did not show any acute abnormality. He again presented to ER this morning with vomiting and esophagealburning and was diagnosed with esophagitis. He was given GI cocktail and discharged on omeprazole with famotidine. Patient mentioned feeling dizzy with generalized weakness vomited after coming back home from the ER this morning. He recently moved to a new apartment a week ago and has not brought his stuff including glucometer and has not been able to check his sugar. He has been takinghis long-acting insulin as well as sliding scale coverage. Patient is also on Invokana. He denies fever, chills, chest pain, recent infection, cough, dysuriaor any other complaint. He has been started on insulin drip and will be admitted to ICU for management of DKA. Patient does not appear to be a good historian and mention since he had the COVID he has developed stuttering which is very frustrating. Review of Systems Review of Systems All other systems reviewed & are negative unless noted below or in HPI [facility] Medical History (Updated 03/26/23 @ 20:43 by Yunior Singh MD) Diabetes Esophagitis Former smoker Gastric erosion Hyperlipidemia Hypertension Myocardial infarction Sleep apnea with use of continuous positive airway pressure (CPAP) Surgical History H/O endoscopy History of esophagogastroduodenoscopy (EGD) History of liver biopsy Stented coronary artery Family History Mother Heart trouble Social History Smoking Status: Never smoker Tobacco Type: cigarettes Substance Use Type: None Substance Abuse Comment: FORMER USER OF ETOH Meds Medications and Allergies Allergies codeine Allergy (Verified 03/26/23 16:44) Unknown Reaction latex Allergy (Verified 03/26/23 16:44) Rash Home Medications atorvastatin 80 mg tablet 80 mg PO DAILY 07/07/18 [History Confirmed 06/21/22] canagliflozin 100 mg tablet 300 mg PO DAILY 07/07/18 [History Confirmed 06/21/22] cholecalciferol (vitamin D3) 125 mcg (5,000 unit) capsule 5,000 unit PO DAILY 07/07/18 [History Confirmed 06/21/22] gabapentin 400 mg capsule 1,200 mg PO TID 07/07/18 [History Confirmed 06/21/22] insulin aspart U-100 100 unit/mL (3 mL) subcutaneous pen 3 units subcut QID 07/07/18 [History Confirmed 06/21/22] insulin glargine 100 unit/mL (3 mL) subcutaneous pen 64 unit subcut QAM 07/07/18[History Confirmed 06/21/22] lisinopril 5 mg tablet 2.5 mg PO DAILY 07/07/18 [History Confirmed 06/21/22] meclizine 25 mg tablet 25 mg PO Q8H PRN Dizziness 07/07/18 [History Confirmed 06/21/22] metformin 500 mg tablet 1,000 mg PO BID 07/07/18 [History Confirmed 06/21/22] naproxen 500 mg tablet 500 mg PO BID PRN pain #20 tabs 07/07/18 [Rx Confirmed 06/21/22] omeprazole 40 mg capsule,delayed release 40 mg PO DAILY 07/07/18 [History Confirmed 06/21/22] prochlorperazine maleate 5 mg tablet 5 mg PO Q8H PRN Nausea 07/07/18 [History Confirmed 06/21/22] clopidogrel 75 mg tablet 75 mg PO DAILY 06/15/20 [History Confirmed 12/28/22] furosemide 20 mg tablet 20 mg PO DAILY 06/15/20 [History Confirmed 06/21/22] nitroglycerin 0.4 mg sublingual tablet 0.4 mg sublingual Q5M PRN Chest Pain 06/15/20 [History Confirmed 06/21/22] primidone 50 mg tablet (Mysoline) 100 mg PO TID 06/15/20 [History Confirmed 06/21/22] ondansetron 4 mg disintegrating tablet 4 mg PO Q6H PRN nausea and vomiting #7 tabs 12/11/20 [Rx Confirmed 06/21/22] lidocaine 5 % topical patch 1 patch topical Q24H #15 ea 06/16/21 [Rx Confirmed 06/21/22] methocarbamol 750 mg tablet 750 mg PO TID #20 tabs 06/16/21 [Rx Confirmed 06/21/22] citalopram 40 mg tablet 40 mg PO DAILY 06/21/22 [History Confirmed 06/21/22] dulaglutide 3 mg/0.5 mL subcutaneous pen injector (Trulicity) 3 mg subcut QWEEK 06/21/22 [History Confirmed 06/21/22] famotidine 20 mg tablet 20 mg PO QHS PRN Acid Reflux 06/21/22 [History Confirmed 06/21/22] fluticasone propionate 50 mcg/actuation nasal spray,suspension 2 spray intranasal DAILY 06/21/22 [History Confirmed 06/21/22] insulin glargine 100 unit/mL (3 mL) subcutaneous pen (Lantus Solostar U-100 Insulin) 60 unit subcut QPM 06/21/22 [History Confirmed 06/21/22] metoprolol tartrate 50 mg tablet 50 mg PO BID 06/21/22 [History Confirmed 06/21/22] pantoprazole 40 mg tablet,delayed release 40 mg PO DAILY 06/21/22 [History Confirmed 06/21/22] quetiapine 50 mg tablet 50 mg PO QHS 06/21/22 [History Confirmed 06/21/22] ropinirole 0.5 mg tablet 0.5 mg PO QHS 06/21/22 [History Confirmed 06/21/22] insulin aspart U-100 100 unit/mL (3 mL) subcutaneous pen (Novolog FlexPen U-100 Insulin aspart) 0 units (0 mL) subcut TID.WM.HS #0 mL 06/24/22 [Rx] azithromycin 500 mg tablet 500 mg PO DAILY 3 days #3 tabs 06/25/22 [Rx] meclizine 25 mg chewable tablet (Antivert) 25 mg PO TID PRN dizziness #20 tabs 11/20/22 [Rx] dicyclomine 20 mg tablet 20 mg PO QID #20 tabs 03/21/23 [Rx] ondansetron 4 mg disintegrating tablet 4 mg PO QID PRN nausea and vomiting #12 tabs 03/21/23 [Rx] famotidine 20 mg tablet (Pepcid) 20 mg PO BID #20 tabs 03/26/23 [Rx] omeprazole 20 mg capsule,delayed release 20 mg PO DAILY #14 caps 03/26/23 [Rx] Exam Physical Exam Vital Signs: Temp Pulse Resp BP Pulse Ox O2 Del Method 97.4 F L 92 H 18 130/67 99 Room Air 03/26/23 16:29 03/26/23 19:43 03/26/23 19:43 03/26/23 19:43 03/26/23 19:43 03/26/23 19:43 Const General: cooperative Nutritional Appearance: obese Orientation: alert, awake and oriented x3 HEENT Head: normal to inspection, no palpable skull fracture, normocephalic and atraumatic Eyes Pupils: PERRL EOM: EOM intact bilaterally and No nystagmus Neck Neck: normal visual inspection and full ROM Resp Effort & Inspection: normal respiratory effort and able to speak in complete sentences Auscultation: no rales, no rhonchi and no wheezes Cardio Rate: tachycardic Rhythm: regular rhythm Heart Sounds: S1 normal and S2 normal GI Palpation: soft, not firm, no guarding and nontender Musc Cervical Spine: normal cervical lordosis and cervical ROM normal Neuro General: patient alert, patient awake, patient oriented x3, moves all extremities and no focal motor deficits Cranial Nerves: CN's II-XII intact bilaterally Speech: speech normal Motor: muscle tone normal throughout and strength 5/5 throughout Sensory Exam: no sensory deficits noted Extrem General: no clubbing, cyanosis or edema and no calf tenderness Psych Appearance: grossly normal Results Lab Results Labs: Laboratory Last Values Sample Site Venous 03/26/23 18:35 VBG pH 7.10 (7.32-7.43) L* 03/26/23 18:35 VBG pCO2 35.2 mmHg (38.0-50.0) L 03/26/23 18:35 VBG pO2 35.8 mmHg (35.0-45.0) 03/26/23 18:35 VBG HCO3 10.6 mmol/L (23.0-29.0) L 03/26/23 18:35 VBG Total CO2 11.7 mmol/L (24.0-29.0) L 03/26/23 18:35 VBG O2 Saturation 69.1 % (73.0-76.0) L 03/26/23 18:35 VBG O2 Content 6.8 mmol/L (6.6-9.7) 03/26/23 18:35 VBG Base Excess -18.2 mmol/L (-3.0-3.0) L 03/26/23 18:35 FiO2 21 % 03/26/23 18:35 Critical Value 03/26/23 18:35 PHA Creatinine Clear 84.39 03/26/23 16:42 Sodium 131 mmol/L (136-145) L 03/26/23 16:42 Potassium 4.9 mmol/L (3.5-5.1) 03/26/23 16:42 Chloride 96 mmol/L (98-107) L 03/26/23 16:42 Carbon Dioxide 13.3 mmol/L (21.0-31.0) L 03/26/23 16:42 Anion Gap 26.6 mEq/L (6.0-15.0) H 03/26/23 16:42 BUN 21 mg/dL (7-25) 03/26/23 16:42 Creatinine 1.21 mg/dL (0.70-1.30) 03/26/23 16:42 Est GFR (CKD-EPI) > 60.0 mL/Min 03/26/23 16:42 Glucose 257 mg/dL (70-100) H 03/26/23 16:42 POC Glucose 193 mg/dl 03/26/23 19:51 POC Glucose Comment Glu2: cleaned meter 03/26/23 19:51 Lactic Acid 1.2 mmol/L (0.5-2.2) 03/26/23 18:19 Calcium 9.0 mg/dL (8.6-10.3) 03/26/23 16:42 Troponin I High Sens 8.1 pg/mL (0.0-20.0) 03/26/23 16:41 Urine Color Yellow (Yellow) 03/26/23 16:40 Urine Appearance Clear (Clear) 03/26/23 16:40 Urine pH 5.5 (5.0-9.0) 03/26/23 16:40 Ur Specific [place] 1.020 (1.001-1.030) 03/26/23 16:40 Urine Protein 30 mg/dL (Negative) H 03/26/23 16:40 Urine Glucose (UA) >=1000 mg/dL (Normal) H 03/26/23 16:40 Urine Ketones 4+ (Negative) H 03/26/23 16:40 Urine Occult Blood Negative (Negative) 03/26/23 16:40 Urine Nitrite Negative (Negative) 03/26/23 16:40 Urine Bilirubin Negative (Negative) 03/26/23 16:40 Urine Urobilinogen Normal mg/dL (Normal) 03/26/23 16:40 Ur Leukocyte Esterase Negative (Negative) 03/26/23 16:40 Urine RBC 0-1 /HPF (0-4) 03/26/23 16:40 Urine WBC None seen /HPF (0-4) 03/26/23 16:40 Ur Squamous Epith Cells None seen /HPF (0-2) 03/26/23 16:40 Urine Bacteria None seen (None Seen) 03/26/23 16:40 Hyaline Casts None seen /LPF (0-8) 03/26/23 16:40 B-Hydroxybutyrate 8.00 mmol/L (0.02-0.27) H 03/26/23 16:42 ABG Interpretation ABG results: 03/26/23 18:35 VBG pH 7.10 L* VBG pCO2 35.2 L VBG pO2 35.8 VBG HCO3 10.6 L VBG Total CO2 11.7 L VBG O2 Saturation 69.1 L VBG Base Excess -18.2 L Assessment & Plan Assessment/Plan (1) DKA (diabetic ketoacidosis): (2) Vomiting: (3) Hypertension: Plan Patient is 62-year-old male with history of insulin-dependent diabetes who presented to ER with complaint of weakness along with vomiting found to be in DKA. He mentioned taking his insulin but has not been checking his blood glucose since he recently moved to a new place and has not brought his glucometer. He is also on Invokana which can lead to DKA as well. Currently no signs of infection. Will be admitted to ICU and started on insulin drip as per DKA protocol. If blood glucose drop below 250 switch to dextrose. Continue insulin drip until anion gap closes. Continue IV hydration monitor electrolytes. Check A1c level. Hold Lasix. DVT prophylaxis. IP vs OBS Justification Based on differential dx, clinical care plan, and risk of adverse events, if untreated, in my clinical judgement this patient requires an acute care setting as: INPATIENT because of an expectation of an over 2 midnight stay. Estimated length of stay (# of days): 2 Documented By: Yunior Singh MD 03/26/232031 Signed By: <Electronically signed by Yunior Singh MD> 03/26/232043 [facility] Work Phone: 1(684) 276-802107-26-2023 Note [id number] 03-17-2023 NoteEndoscopy Care After Procedure Please read the instructions outlined below and refer to this sheet in the next few weeks. These discharge instructions provide you with general information on caring for yourself after you leave thehospital. Your doctor may also give you specific instructions. While your treatment has been planned according to the most current medical practices available, unavoidable complications occasionally occur. If you have any problems or questions after discharge, please call your doctor. ACTIVITY ? You may resume your regular activity but move at a slower pace for the next 24 hours. ? Take frequent rest periods for the next 24 hours. ? Walking will help expel (get rid of) the air and reduce the bloated feeling in your abdomen. ? No driving for 24 hours (because of the anesthesia (medicine) used during the test). ? You may shower. ? Do not sign any important legal documents or operate any machinery for 24 hours (because of the anesthesia used during the test). NUTRITION ? Drink plenty of fluids. ? You may resume your normal diet. ? Begin with a light meal and progress to your normal diet. ? Avoid alcoholic beverages for 24 hours or as instructed by your caregiver. MEDICATIONS ? You may resume your normal medications unless your caregiver tells you otherwise. WHAT YOU CAN EXPECT TODAY ? You may experience abdominal discomfort such as a feeling of fullness or ?gas? pains. FOLLOW-UP ? Your doctor will discuss the results of your test with you. seek immediate medical attention if any of the following occur: ? Excessive nausea (feeling sick to your stomach) and/or vomiting. ? Severe abdominal pain and distention (swelling). ? Trouble swallowing. ? Temperature over 100 F (37.8? C). ? Rectal bleeding or vomiting of blood. Document Released: 03/25/2005 Document Re-Released: 02/02/2007 [employer]? Patient Information ?2009 [employer]. Gastroenterology Esophagitis Esophagitis is inflammation of the esophagus. The esophagus is the tube that carries food from the mouth to the stomach. Esophagitis can cause soreness or pain in the esophagus. This condition can make it difficult and painful to swallow. What are the causes? Most causes of esophagitis are not serious. Common causes of this condition include: ? Gastroesophageal reflux disease (GERD). This is when stomach contents move back up into the esophagus (reflux). ? Repeated vomiting. ? An allergic reaction, especially caused by food allergies (eosinophilic esophagitis). ? Injury to the esophagus by swallowing large pills with or without water, or swallowing certain types of medicines. ? Swallowing harmful chemicals, such as household cleaning products. ? Drinking a lot of alcohol. ? An infection of the esophagus. This most often occurs in people who have a weakened immune system. ? Radiation or chemotherapy treatment for cancer. ? Certain diseases such as sarcoidosis, Crohn's disease, and scleroderma. What are the signs or symptoms? Symptoms of this condition include: ? Difficult or painful swallowing. ? Pain with swallowing acidic liquids, such as citrus juices. You may also have pain when you burp. ? Chest pain and difficulty breathing. ? Nausea and vomiting. ? Pain in the abdomen. ? Weight loss. ? Ulcers in the mouth and white patches in the mouth (candidiasis). ? Fever. ? Coughing up blood or vomiting blood. ? Stool that is black, tarry, or bright red. How is this diagnosed? This condition may be diagnosed based on your medical history and a physical exam. You may also have other tests, including: ? A test to examine your esophagus and stomach with a small flexible tube with a camera (endoscopy). ? A test that measures the acidity level in your esophagus. ? A test that measures how much pressure is on your esophagus. ? A barium swallow or modified barium swallow to show the shape, size, and functioning of your esophagus. ? Allergy tests. How is this treated? Treatment for this condition depends on the cause of your esophagitis. In some cases, steroids or other medicines may be given to help relieve your symptoms or to treat the underlying cause of your condition. You may have to make some lifestyle changes, such as: ? Avoiding alcohol. ? Quitting any products that contain nicotine or tobacco. These products include cigarettes, chewing tobacco, and vaping devices, such as e-cigarettes. If you need help quitting, ask your health careprovider. ? Changing your diet. ? Exercising. ? Changing your sleep habits and your sleep environment. Follow these instructions at home: Medicines ? Take badb-foj-qycehym and prescription medicines only as told by your health care provider. ? Do not take aspirin, ibuprofen, or other NSAIDs unless your health care provider told you to do so. ? If you have trouble taking pills: ? Use a pill splitter to decrease the size of the pi (more content not included)...[facility]04-20-2023 Evaluation + Plan note Future Scheduled Tests Laboratory* CBC w/ Indices 12/12/22 * Comprehensive Metabolic Panel 12/12/22 [facility]01-17-2023 NoteHNO ID: [id number] Author: Lynnette Melton PA-C Service: ? Author Type: Physician Calibration Checker Type: Progress Notes Filed: 09/11/2022 11:59 AM Note Text: [facility] NOTE NAME: JENNIFER MICHEL NO.: [id number] DATE OF SERVICE: 09/10/2022 Edgar Buchanan DATE OF : 1960 CHIEF COMPLAINT: Follow up visit for left knee pain. SUBJECTIVE FINDINGS: The patient was seen in his room, lying in bed. He was seen last week for complaints of left knee discomfort. He was started on meloxicam as well as diclofenac gel, which he feels is effective. X-ray demonstrated mild osteoarthritis. He related that the knee went out a few days ago with ambulation, although this was not witnessed and nursing staff did not note any fall. He is ambulating short distances with the use of his walker without significant impairment per staff. REVIEW OF SYSTEMS: See above. MEDICATIONS: Medications reviewed in the [facility] record. CODE STATUS: Code status is full code. PHYSICAL EXAMINATION: Temp 98.2, pulse 74, respirations 17, BP 116/73, pulse ox 95%. Weight 306.5 pounds. Examination revealed an obese middle-aged man, sitting up in bed. He appeared comfortable and in no distress. No significant swelling of the left knee. Did have some moderate crepitus with movement and tenderness to the anserine bursa. The patient did have full range of motion. ASSESSMENT AND PLAN: 1. Left knee osteoarthritis. Continue Voltaren gel, meloxicam, and supportive care. He can follow up with Orthopedics as an outpatient. 2. Morbid obesity. This is likely contributing to his knee discomfort. Recommend diet for weight loss and continue supportive care. DICTATED BY: Lynnette Melton PA-C PG/Acdimitrys JOB# [id number] cc:Marylou??s [facility]01-17-2023 History of Present illness Narrative* Lynnette Melton PA-C - 09/10/2022 12:00 AM EST [facility] NOTE NAME: KIERSTEN MICHELJL NO.: [id number] DATE OF SERVICE: 09/10/2022 Edgar Chanel DATE OF : 1960 CHIEF COMPLAINT: Follow up visit for left knee pain. SUBJECTIVE FINDINGS: The patient was seen in his room, lying in bed. He was seen last week for complaints of left knee discomfort. He was started on meloxicam as well as diclofenac gel, which he feels is effective. X-ray demonstrated mild osteoarthritis. He related that the knee went out a few daysago with ambulation, although this was not witnessed and nursing staff did not note any fall. He is ambulating short distances with the use of his walker without significant impairment per staff. REVIEW OF SYSTEMS: See above. MEDICATIONS: Medications reviewed in the [facility] record. CODE STATUS: Code status is full code. PHYSICAL EXAMINATION: Temp 98.2, pulse 74, respirations 17, BP 116/73, pulse ox 95%. Weight 306.5 pounds. Examination revealed an obese middle-aged man, sitting up in bed. He appeared comfortable andin no distress. No significant swelling of the left knee. Did have some moderate crepitus with movement and tenderness to the anserine bursa. The patient did have full range of motion. ASSESSMENT AND PLAN: 1. Left knee osteoarthritis. Continue Voltaren gel, meloxicam, and supportive care. He can follow up with Orthopedics as an outpatient. 2. Morbid obesity. This is likely contributing to his knee discomfort. Recommend diet for weight loss and continue supportive care. DICTATED BY: Lynnette Melton PA-C PG/Acusis JOB# [id number] cc:Admiral aylin Buchanan documented [facility] NoteHNO ID: [id number] Author: Lynnette Melton PA-C Service: ? Author Type: Physician Calibration Checker Type: Progress Notes Filed: 09/09/2022 11:09 AM Note Text: [facility] NOTE NAME: JENNIFER MICHEL NO.: [id number] DATE OF SERVICE: 09/06/2022 Basimayiln Chanel DATE OF : 1960 CHIEF COMPLAINT: Left knee pain. SUBJECTIVE FINDINGS: The patient was seen in his room, sitting up in his wheelchair. His , who was his roommate, was also present for the evaluation. Nursing staff relates that the patient is complaining of significant discomfort in his left knee to the point where he is not walking on a regular basis when he had been before. Staff relates that the patient is scheduled to discharge from the facility on September 18, 2021. He has been using naproxen with minimal improvement. In addition, he has been using Lidoderm patch, which has not particularly been helpful for the discomfort. He notes significant achiness and crepitus in the knee. He denies that the knee gives out or has any locking. He has never undergone any intraarticular injections that he is aware of and has not undergone any recent knee x-rays. There are no documented fevers or chills. Of note, the patient has had rather low-normal blood sugars in the 80 to 100 range. He is on a moderate amount of long-acting insulin as well as schedule mealtime insulin and metformin and Invokana. He has not had any hypoglycemic events. REVIEW OF SYSTEMS: See above. MEDICATIONS: Medications reviewed in the fdc record. CODE STATUS: Code status is full code. PHYSICAL EXAMINATION: Revealed an obese, middle-aged man, sitting up in his wheelchair. He was alert and fairly appropriate. Heart: Regular rate and rhythm. Lungs: Clear. Abdomen: Obese, soft, no tenderness. Lower extremities: Mild crepitus of the right knee with mild right anserine bursal tenderness. Left knee significantly enlarged with moderate crepitus with motion and tenderness to the anserine bursa. There was no acute synovitis. ASSESSMENT AND PLAN: 1. Significant left knee osteoarthritis. We will x-ray the knee. We will discontinue the Naprosyn and schedule Mobic on a daily basis. We will add diclofenac gel. We will arrange for orthopedic followup as he likely could benefit from an intra-articular injection. We will continue to monitor. 2. Type 2 diabetes mellitus. Blood sugars have been on the lower side of normal, so we will reduce long-acting insulin and continue to follow. DICTATED BY: DALE Poe JOB# [id number] cc:[facility]01-03-2023 NoteHNO ID: [id number] Author: Allyson Holliday Service: ? Author Type: Physician Type: Progress Notes Filed: 09/02/2022 8:49 AM Note Text: [facility] NOTE NAME: JENNIFER MICHEL NO.: [id number] DATE OF SERVICE: 08/27/2022 [facility] DATE OF : 1960 Followup of multiple medical chronic issues He is currently up in his wheelchair, eating his breakfast. He is smiling, in good spirits. He had good night sleep. He denies any shortness of breath or chest pain. Nursing reports no new problems. Meds reviewed. EXAMINATION: Afebrile, vital signs stable. HEENT: Intact. Lungs: Clear. Heart: Regular. Abdomen: Soft and nontender. Bowel sounds present. Extremities: No edema. IMPRESSION: 1. Obstructive sleep apnea - he is on CPAP therapy. He has no respiratory symptoms. 2. Coronary artery disease - cardiac status stable. 3. Hypertension - blood pressure within a fair range. 4. Hyperlipidemia - continue statin therapy. 5. Diabetes mellitus type 2 - blood sugars have been monitored. Maintain current diabetic regimen. 6. Gastroesophageal reflux disease - he has no gastrointestinal symptoms. His appetite has been good. 7. Major depressive disorder - he appears to be in good spirits. Maintain current course of therapy. DICTATED BY: MD LEO Rivera/Lucy JOB# [id number] cc:[facility]01-03-2023 History of Present illness Narrative* Allyson Holliday - 08/27/2022 12:00 AM EST [facility] NOTE NAME: JENNIFER MICHEL NO.: [id number] DATE OF SERVICE: 08/27/2022 [place] DATE OF : 1960 Followup of multiple medical chronic issues He is currently up in his wheelchair, eating his breakfast. He is smiling, in good spirits. He had good night sleep. He denies any shortness of breath or chest pain. Nursing reports no new problems. Meds reviewed. EXAMINATION: Afebrile, vital signs stable. HEENT: Intact. Lungs: Clear. Heart: Regular. Abdomen: Soft and nontender. Bowel sounds present. Extremities: No edema. IMPRESSION: 1. Obstructive sleep apnea - he is on CPAP therapy. He has no respiratory symptoms. 2. Coronary artery disease - cardiac status stable. 3. Hypertension - blood pressure within a fair range. 4. Hyperlipidemia - continue statin therapy. 5. Diabetes mellitus type 2 - blood sugars have been monitored. Maintain current diabetic regimen. 6. Gastroesophageal reflux disease - he has no gastrointestinal symptoms. His appetite has been good. 7. Major depressive disorder - he appears to be in good spirits. Maintain current course of therapy. DICTATED BY: MD LEO Rivera/Lucy JOB# [id number] cc:Admiral aylin Buchanan documented [facility] Discharge summary Author Ramón Mcgarry [facility] June 25, 2022 12:45pm Note Date/Time June 24, 2022 2 :23pm [facility] [address] [place] [address] Discharge Summary Signed Patient: Mannie Michel MR#: [id number] : 1960 Acct:[id number] Age/Sex: 61 / M Adm Date: 2 Loc: Room: [address] [place] [address]: Ramón Mcgarry MD Copies to: Ramón Mcgarry MD [facility] [place]~ Providers Date of Discharge: 06/25/22 Discharging Provider: Ramón Mcgarry Primary Care Provider: [facility] Consults: 06/21/22 16:24 Consult to Neurosurgery Routine 06/21/22 18:48 Consult to Sleep Lab Routine 06/22/22 10:18 Consult to Occupational Therapy Routine Consult to Physical Therapy Routine Discharge Diagnosis Final Diagnosis Final Discharge Diagnosis: COVID-19 infection, with bacterial superinfection (acute bronchitis) Fall, trauma to the head, concussion Mild encephalopathy due to the above Chronic medical comorbidities Hypertension Diabetes mellitus type 2 Obesity class II Dyslipidemia CAD remote NM and stenting sleep apnea on CPAP at home Summary Hospital Course Hospital course: Patient is a 61-year-old male, with a number of chronic medical comorbidities, who presented to the emergency department on June 21, after he sustained a fall in his home. He had been having upper respiratory tract symptoms for abouta week. Testing was positive for COVID-19 infection. Since he sustained head trauma, imaging of the head was performed, indicating a possible left basal ganglia hemorrhage. Patient was admitted to the hospital. He was seen by neurosurgery. Further imaging with MRI did not confirm presence of intracranial hemorrhage. Conservative management was advised. With respect to COVID-19 infection, patient was treated with remdesivir. There were no respiratory complications. He was mildly encephalopathic, consistent with acute COVID-19 infection. Patient was medically stable for discharge to a half-way facility on June 24. Since at the time of discharge she developed some greenish sputum, a brief course of oral azithromycin was continued upon discharge. Time Spent with Patient Time spent providing/coordinating discharge services (# min): 35 Diagnostic Studies Completed and Pending Studies Pending studies at discharge: 06/22/22 12:54 US venous duplex LE BI Routine Labs on day of discharge: 06/24/22 11:44: POC Glucose 234, POC Glucose Comment Glu2: cleaned meter 06/24/22 06:51: POC Glucose 158, POC Glucose Comment Glu2: cleaned meter 06/24/22 06:21: PHA Creatinine Clear 93.18, Sodium 131 L, Potassium 3.8, Chloride 92 L, Carbon Dioxide 27.7, Anion Gap 15.1 H, BUN 29 H, Creatinine 1.24,Est GFR ( Amer) > 60, Est GFR (Non-Af Amer) 60, Glucose 158 H, Calcium 8.9, Total Bilirubin 0.7, AST 42, ALT 38, Alkaline Phosphatase 106 H, Total Protein 7.1, Albumin 3.5, Globulin 3.6, Albumin/Globulin Ratio 1.0 06/24/22 06:21: Corrected WBC 5.1, Uncorrected WBC Count 5.1, RBC 5.48, Hgb 15.1, Hct 44.6, MCV 81.5 L, MCH 27.5, MCHC 33.8, RDW 14.4, Plt Count 210, MPV 9.8, Neut % (Auto) 59.7, Lymph % (Auto) 18.9, [place] % (Auto) 15.0, Eos % (Auto) 5.8, Baso % (Auto) 0.6, Neut # (Auto) 3.0, Lymph # (Auto) 1.0, [place]enden # (Auto) 0.8, Eos # (Auto) 0.3, Baso # (Auto) 0.0, Nucleated RBC % (auto) 0.1 06/23/22 20:23: POC Glucose 309 06/23/22 16:30: POC Glucose 239 Exam Physical Exam Vital Signs: Temp Pulse Resp BP Pulse Ox O2 Del Method 98.1 F 80 18 102/68 94 L Room Air 06/24/22 04:39 06/24/22 12:00 06/24/22 12:00 06/24/22 12:00 06/24/22 12:00 06/24/22 12:00 Discharge Plan Discharge Plan Patient Disposition: Intermediate Facility Activity: No Activity Restriction Diet: Diabetic and Low-Sodium Additional Instructions: SNF to manage: - PT/OT to eval and treat - Monitor VS routine - Hx. HTN - Monitor blood sugars - Dx. DM - Patient has tested positive for Covid-19 06/21/22, please see attached instructions and follow up with the Health Department for further instructions. - Fall precautions - high fall risk Instructions: [facility] [place] Discharge Instructions Stand Alone Forms: Insulin Corrective Scale #2 Prescriptions: New azithromycin 500 mg tablet 500 mg PO DAILY 3 Days Qty: 3 0RF insulin aspart U-100 [Novolog Flexpen U-100 Insulin] 100 unit/mL (3 mL) Insulin Pen 0 units subcut TID.WM.HS Qty: 0 0RF Continued metformin 500 mg tablet 1,000 mg PO BID Label Comments: atorvastatin 80 mg tablet 80 mg PO DAILY Label Comments: take 1 tablet by mouth at bedtime prochlorperazine maleate 5 mg tablet 5 mg PO Q8H PRN (Reason: Nausea) Label Comments: take 1 tablet by mouth every 8 hours if needed gabapentin 400 mg capsule 1,200 mg PO TID Label Comments: omeprazole 40 mg capsule,delayed release(DR/EC) 40 mg PO DAILY Label Comments: take 1 capsule by mouth once daily meclizine 25 mg tablet 25 mg PO Q8H PRN (Reason: Dizziness) Label Comments: take 1 tablet by mouth every 8 hours if needed cholecalciferol (vitamin D3) 5,000 unit capsule 5,000 unit PO DAILY Label Comments: take 1 capsule by mouth once daily insulin aspart U-100 100 unit/mL insulin pen 3 units subcut QID Label Comments: inject 3 units subcutaneously PER 10 CARBS FOUR TIMES PER DAY insulin glargine 100 unit/mL (3 mL) insulin pen 64 unit subcut QAM Label Comments: canagliflozin 100 mg tablet 300 mg PO DAILY Label Comments: take 1 tablet by mouth once daily lisinopril 5 mg Tablet 2.5 mg PO DAILY naproxen 500 mg tablet 500 mg PO BID PRN (Reason: pain) Qty: 20 0RF Rx Instructions: administer with food or milk methocarbamol 750 mg tablet 750 mg PO TID Qty: 20 0RF lidocaine 5 % adhesive patch,medicated 1 patch topical Q24H Qty: 15 0RF Rx Instructions: leave on most painful area for up to 12 hrs primidone [Mysoline] 50 mg tablet 100 mg PO TID Label Comments: take 2 tablets by mouth three times a day clopidogrel 75 mg tablet 75 mg PO DAILY Label Comments: take 1 tablet by mouth once daily nitroglycerin 0.4 mg Tablet, Sublingual 0.4 mg SUBLINGUAL Q5M PRN (Reason: Chest Pain) Rx Instructions: up to 3 doses furosemide 20 mg tablet 20 mg PO DAILY Label Comments: take 1 tablet by mouth once daily ondansetron 4 mg tablet,disintegrating 4 mg PO Q6H PRN (Reason: nausea and vomiting) Qty: 7 0RF famotidine 20 mg Tablet 20 mg PO QHS PRN (Reason: Acid Reflux) pantoprazole 40 mg Tablet,Delayed Release (Dr/Ec) 40 mg PO DAILY ropinirole 0.5 mg tablet 0.5 mg PO QHS Label Comments: TAKE 1 TABLET BY MOUTH 1 TO 3 HOURS BEFORE BEDTIME DAILY metoprolol tartrate 50 mg tablet 50 mg PO BID Label Comments: take 1 tablet by mouth every 12 hours fluticasone propionate 50 mcg/actuation spray,suspension 2 spray INTRANASAL DAILY Label Comments: INSTILL 2 SPRAYS INTO EACH NOSTRIL ONCE DAILY. quetiapine 50 mg Tablet 50 mg PO QHS insulin glargine [Lantus Solostar U-100 Insulin] 100 unit/mL (3 mL) Insulin Pen 60 unit SUBCUT QPM Trulicity 3 mg/0.5 mL Pen Injector 3 mg SUBCUT QWEEK Held citalopram 40 mg Tablet 40 mg PO DAILY Hold Instructions: Resume on 06/30/22. Discontinued aspirin 325 mg Tablet,Delayed Release (Dr/Ec) 325 mg PO DAILY hydrocodone-acetaminophen 5-325 mg tablet 1 tab PO TID PRN (Reason: pain) 2 Days Qty: 6 0RF Invokana 300 mg Tablet 300 mg PO DAILY Follow Up: [facility] [Primary Care Provider] - (Please arrange follow-up appointment once discharged from [facility]. ) Documented By: Ramón Mcgarry MD 06/24/22 1422 Signed By: <Electronically signed by Ramón Mcgarry MD> 06/25/22 1245 [facility] Work Phone: [phone]) 861-109910-30-2022 Progress note Author Dharmesh Linda [facility] June 23, 2022 4:01pm Note Date/Time June 22, 2022 1 2:54pm [facility] [address] [place] [address] Hospitalist Progress Note Signed with Vanesaenda Patient: Mannie Michel MR#: [id number] : 1960 Acct:[id number] Age/Sex: 61 / M Adm Date: 2 Loc: Room: [address] [place] [address] Type: ADM IN Attending Dr: Dharmesh Linda MD Copies to: ~ ADDENDUM1 I personally saw this patient on the day of the encounter, reviewed the history,performed the fuentes elements of the exam and formulated the plan of care and confirmed the nurse practitioners/residents/internet database specialist written note. Addendum Documented By: Dharmesh Linda MD 06/23/22 1601 Addendum Signed By: <Electronically signed by Dharmesh Linda MD> 06/23/22 1601 Date of Service: 06/22/2022 Subjective Subjective Narrative: Patient is seen and examined. He is up in the chair. He states he is not feeling well overall. Reports some dyspnea, currently on room air without hypoxia. Also reports sore throat that started this morning. After auscultation of lungscoughs quite harshly, not moist or productive. Reports pain left posterior lateral head with associated bump from where he fell. Indicates he has some lightheadedness with this. Offers no other complaints of pain. Appetite is good denies any abdominal symptoms. Exam Physical Exam Vital Signs: Temp Pulse Resp BP Pulse Ox O2 Del Method 98.4 F 85 18 113/80 94 L Room Air 06/22/22 11:45 06/22/22 11:45 06/22/22 11:45 06/22/22 11:45 06/22/22 11:45 06/22/22 11:45 Narrative: Alert, in chair, no distress at rest RRR no abnormal heart tones dimin without wheeze or rhonchi, RA S/NT, NABS, obese no edema BLE, calves nontender Left posterior scalp with tender raised area skin appears intact, painful with exam Cervical spine nontender with exam and range of motion Objective Lab Results CBC & Chem 7: 06/22/22 06:09 06/22/22 07:47 Microbiology Results Microbiology 06/21/22 14:53 Nasal SARS Antigen (LFIA) - Final Meds Allergies and Active Meds Allergies codeine Allergy (Verified 06/21/22 14:40) Unknown Reaction latex Allergy (Verified 06/21/22 14:40) Rash Active Meds: Active Medications Generic Name Dose Route Start Last Admin Trade Name Oralq PRN Reason Stop Dose Admin Acetaminophen 650 mg 06/21/22 16:24 Acetaminophen 325 Mg Tablet PO 06/21/23 16:23 Q6HR PRN Pain Scale 1 - 3 or fever Hydrocodone Bitart/Acetaminophen 1 tab 06/21/22 18:44 06/22/22 06:11 Hydrocodone/Acetaminophen 5-325 Mg Tablet PO 1 tab TID PRN Administration pain Ascorbic Acid 500 mg 06/21/22 21:00 06/22/22 08:25 Ascorbic Acid 500 Mg Tablet PO 06/21/23 20:59 500 mg BID RIYA Administration Aspirin 325 mg 06/22/22 09:00 Aspirin 325 Mg Tablet. PO 06/22/23 08:59 DAILY RIYA Atorvastatin Calcium 80 mg 06/21/22 22:00 06/21/22 21:51 Atorvastatin 80 Mg Tablet PO 06/21/23 21:59 80 mg HS RIYA Administration Canagliflozin 300 mg 06/22/22 09:00 06/22/22 08:25 Canagliflozin 300 Mg Tablet PO 06/22/23 08:59 300 mg DAILY RIYA Administration Citalopram Hydrobromide 40 mg 06/22/22 09:00 06/22/22 08:25 Citalopram 40 Mg Tablet PO 06/22/23 08:59 40 mg DAILY RIYA Administration Clopidogrel Bisulfate 75 mg 06/22/22 09:00 Clopidogrel Bisulfate 75 Mg Tablet PO 06/22/23 08:59 DAILY RIAY Cyclobenzaprine HCl 10 mg 06/21/22 22:00 06/22/22 08:26 Cyclobenzaprine 10 Mg Tablet PO 06/21/23 21:59 10 mg TID RIYA Administration Famotidine 20 mg 06/21/22 18:44 06/21/22 21:51 Famotidine 20 Mg Tablet PO 06/21/23 18:43 20 mg QHS PRN Administration Acid Reflux Fluticasone Propionate 2 spray 06/22/22 09:00 06/22/22 08:27 Fluticasone Propionate Macy 120 Macy/16 Gm Bottle INTRANASAL 06/22/23 08:59 2 spray DAILY RIYA Administration Furosemide 20 mg 06/22/22 09:00 06/22/22 08:25 Furosemide 20 Mg Tablet PO 06/22/23 08:59 20 mg DAILY RIYA Administration Gabapentin 1,200 mg 06/21/22 22:00 06/22/22 08:26 Gabapentin 400 Mg Capsule PO 06/21/23 21:59 1,200 mg TID RIYA Administration Guaifenesin/Dextromethorphan 10 ml 06/21/22 16:24 Guaif/Dextromethorphan Syrup 10 Ml Udc PO 06/21/23 16:23 Q8H PRN Cough Magnesium Sulfate 2 gm in 50 mls @ 25 mls/hr 06/21/22 16:24 Magnesium Sulf 2gm-*Swfi* IV 06/21/23 16:23 DAILY PRN Magnesium Level < 1.5 Insulin Aspart 0 units 06/21/22 22:00 06/22/22 11:42 Insulin Aspart 300 Units/3 Ml Insuln.Pen SUBCUT 06/21/23 21:59 7 units TID.WM.HS RIYA Administration Protocol Insulin Glargine 64 units 06/22/22 09:00 06/22/22 08:27 Insulin Glargine 300 Units/3 Ml Insuln.Pen SUBCUT 06/22/23 08:59 64 units QAM RIYA Administration Insulin Glargine 60 units 06/21/22 21:00 06/21/22 21:52 Insulin Glargine 300 Units/3 Ml Insuln.Pen SUBCUT 06/21/23 20:59 60 units QPM RIYA Administration Labetalol HCl 10 mg 06/21/22 16:24 Labetalol 100 Mg/20 Ml Vial IV-PUSH 06/21/23 16:23 Q4H PRN for sbp >150 Lidocaine 1 patch 06/22/22 09:00 Lidocaine 4% Adh..Patch TOPICAL 06/22/23 08:59 Q24H [facility] Lisinopril 2.5 mg 06/22/22 09:00 06/22/22 10:27 Lisinopril 2.5 Mg Tablet PO 06/22/23 08:59 Not Given DAILY [facility] Meclizine HCl 25 mg 06/21/22 18:44 Meclizine 25 Mg Tablet PO 06/21/23 18:43 Q8H PRN Dizziness Metoprolol Tartrate 50 mg 06/21/22 21:00 06/22/22 08:26 Metoprolol Tartrate 50 Mg Tablet PO 06/21/23 20:59 50 mg BID RIYA Administration Naproxen 500 mg 06/21/22 18:44 Naproxen 500 Mg Tablet PO 06/21/23 18:43 BID PRN pain Nitroglycerin 0.4 mg 06/21/22 18:44 Nitroglycerin 0.4 Mg Tab.Subl SUBLINGUAL 06/21/23 18:43 Q5M PRN Chest Pain Non-Formulary Medication 3 mg 06/28/22 09:00 Dulaglutide [Trulicity] SUBCUT 06/28/23 08:59 QWEEK RIYA Omeprazole 40 mg 06/22/22 09:00 06/22/22 08:25 Omeprazole 20 Mg Capsule.Dr PO 06/22/23 08:59 40 mg DAILY RIYA Administration Ondansetron HCl 4 mg 06/21/22 16:24 Ondansetron 4 Mg/2 Ml Vial IV-PUSH 06/21/23 16:23 Q8H PRN Nausea And Vomiting Potassium Chloride 40 meq 06/21/22 16:24 Potassium Chloride Er 20 Meq Tab.Er.Prt PO 06/21/23 16:23 DAILY PRN Hypokalemia Primidone 100 mg 06/21/22 22:00 06/22/22 08:26 Primidone 50 Mg Tablet PO 06/21/23 21:59 100 mg TID RIYA Administration Prochlorperazine Maleate 5 mg 06/21/22 18:44 Prochlorperazine Maleate 5 Mg Tablet PO 06/21/23 18:43 Q8H PRN Nausea Quetiapine Fumarate 50 mg 06/21/22 22:00 06/21/22 21:51 Quetiapine Fumarate 50 Mg Tablet PO 06/21/23 21:59 50 mg QHS RIYA Administration Ropinirole HCl 0.5 mg 06/21/22 22:00 06/21/22 21:51 Ropinirole 0.5 Mg Tablet PO 06/21/23 21:59 0.5 mg QHS RIYA Administration Sodium Chloride 0 ml 06/21/22 14:16 06/21/22 18:07 Sodium Chloride 0.9 % 10 Ml Syringe IV-PUSH 06/21/23 14:15 10 ml PRN PRN Administration Flush Vitamin D 125 mcg 06/22/22 09:00 06/22/22 08:25 Cholecalciferol 125 Mcg (5,000 Units) Capsule PO 06/22/23 08:59 125 mcg DAILY RIYA Administration Zinc Gluconate 50 mg 06/22/22 09:00 06/22/22 08:26 Zinc Gluconate 50 Mg Tablet PO 06/22/23 08:59 50 mg DAILY RIYA Administration A&P - Hospitalist Assessment/Plan (1) Traumatic intraparenchymal hemorrhage: (2) COVID-19: (3) Hypertension: (4) Diabetes: Plan Traumatic intraparenchymal hemorrhage -Appreciate neurosurgery consult, they will not be available Today and recommendMRI with follow-up to hospitalist team -MRI brain pending -CT head - subtle hypodensity involving the region of the left basal ganglia measuring 29 mm, small intraparenchymal hemorrhage cannot be excluded -Aspirin Plavix on hold, per discussion with Dr. Rivera he is okay with aspirin therapy continued, would hold Plavix x1 week if indeed there his bleed Bilateral lower leg tenderness -venous dopp pending COVID -no hypoxia, has cough and sore throat -Paxlovid started with multiple comorbidities at risk for decline, hold Canagliflozin, Quetiapine, Primidone with interactions as d/w patient will monitor for complication from med discontinuance. Later pharmacy communication Paxlovid not recommended despite discontinuance of Primidone, therefore 3 days Remdesivir will be started -Vit C, Zinc, Vit D -CXR nonacute Chronic Conditions 1. DM- Glargine, SSI coverage 2. CAD, HTN, HLD-Clopidogrel, furosemide, lisinopril 3. SUNIL not compliant with CPAP as his machine was recalled and has not replaced, case management to assist obtaining 4. Depression- Citalopram 5. GERD- omeprazole 6. RLS-ropinirole, primidone held Documented By: MARIO Dsouza 2 1254 Signed By: <Electronically signed by MARIO Nuñez> 06/22/22 1538 <Electronically signed by Dharmesh Linda MD> 06/23/22 1559 [facility] Work Phone: [phone]) 371-228910-30-2022 Progress note Author Dharmesh Linda [facility] June 23, 2022 4:01pm Note Date/Time June 23, 2022 1 1:56am [facility] [address] [place] [address] Hospitalist Progress Note Signed with Bonilla Patient: Mannie Michel MR#: [id number] : 1960 Acct:[id number] Age/Sex: 61 / M Adm Date: 2 Loc: Room: [address] [place] [address] Type: ADM IN Attending Dr: Dharmesh Linda MD Copies to: ~ ADDENDUM1 I personally saw this patient on the day of the encounter, reviewed the history,performed the fuentes elements of the exam and formulated the plan of care and confirmed the nurse practitioners/residents/internet database specialist written note. Addendum Documented By: Dharmesh Linda MD 06/23/22 1601 Addendum Signed By: <Electronically signed by Dharmesh Linda MD> 06/23/22 1601 Date of Service: 06/23/2022 Subjective Subjective Narrative: Patient seen and examined. In bed, states he is not feeling well. Still reporting heaviness to his breathing, no distress and on RA. Intake adequate. Poor sleep, normally takes melatonin. Updated on MRI results. He will receive 3 doses Remdesevir. Updated on therapy evals and recs for SNF, agreeable. Sunshine updated telephonically- she is currently a patient at [facility] herself Exam Physical Exam Vital Signs: Temp Pulse Resp BP Pulse Ox O2 Del Method 97.9 F 80 18 111/77 93 L Room Air 06/23/22 05:04 06/23/22 08:00 06/23/22 08:00 06/23/22 08:00 06/23/22 08:00 06/23/22 08:00 Narrative: Alert, in bed, no distress at rest RRR no abnormal heart tones dimin without wheeze or rhonchi, RA S/NT, NABS, obese no edema BLE, calves nontender Left posterior scalp with tender raised area skin appears intact, painful with exam Cervical spine nontender with exam and range of motion Objective Lab Results CBC & Chem 7: 06/22/22 06:09 06/22/22 07:47 Meds Allergies and Active Meds Allergies codeine Allergy (Verified 06/21/22 14:40) Unknown Reaction latex Allergy (Verified 06/21/22 14:40) Rash Active Meds: Active Medications Generic Name Dose Route Start Last Admin Trade Name Oralq PRN Reason Stop Dose Admin Acetaminophen 650 mg 06/21/22 16:24 06/23/22 05:13 Acetaminophen 325 Mg Tablet PO 06/21/23 16:23 650 mg Q6HR PRN Administration Pain Scale 1 - 3 or fever Hydrocodone Bitart/Acetaminophen 1 tab 06/21/22 18:44 06/23/22 00:11 Hydrocodone/Acetaminophen 5-325 Mg Tablet PO 1 tab TID PRN Administration pain Ascorbic Acid 500 mg 06/21/22 21:00 06/23/22 08:14 Ascorbic Acid 500 Mg Tablet PO 06/21/23 20:59 500 mg BID RIYA Administration Aspirin 325 mg 06/22/22 09:00 Aspirin 325 Mg Tablet.Dr PO 06/22/23 08:59 DAILY RIYA Atorvastatin Calcium 80 mg 06/21/22 22:00 06/21/22 21:51 Atorvastatin 80 Mg Tablet PO 06/21/23 21:59 80 mg HS RIYA Administration Canagliflozin 300 mg 06/22/22 09:00 06/23/22 08:14 Canagliflozin 300 Mg Tablet PO 06/22/23 08:59 300 mg DAILY RIYA Administration Citalopram Hydrobromide 40 mg 06/22/22 09:00 06/23/22 08:14 Citalopram 40 Mg Tablet PO 06/22/23 08:59 40 mg DAILY RIYA Administration Clopidogrel Bisulfate 75 mg 06/22/22 09:00 Clopidogrel Bisulfate 75 Mg Tablet PO 06/22/23 08:59 DAILY RIYA Cyclobenzaprine HCl 10 mg 06/21/22 22:00 06/23/22 08:14 Cyclobenzaprine 10 Mg Tablet PO 06/21/23 21:59 10 mg TID RIYA Administration Famotidine 20 mg 06/21/22 18:44 06/21/22 21:51 Famotidine 20 Mg Tablet PO 06/21/23 18:43 20 mg QHS PRN Administration Acid Reflux Fluticasone Propionate 2 spray 06/22/22 09:00 06/23/22 08:15 Fluticasone Propionate Macy 120 Macy/16 Gm Bottle INTRANASAL 06/22/23 08:59 2 spray DAILY RIYA Administration Furosemide 20 mg 06/22/22 09:00 06/23/22 08:14 Furosemide 20 Mg Tablet PO 06/22/23 08:59 20 mg DAILY RIYA Administration Gabapentin 1,200 mg 06/21/22 22:00 06/23/22 08:14 Gabapentin 400 Mg Capsule PO 06/21/23 21:59 1,200 mg TID RIYA Administration Guaifenesin/Dextromethorphan 10 ml 06/21/22 16:24 Guaif/Dextromethorphan Syrup 10 Ml Udc PO 06/21/23 16:23 Q8H PRN Cough Magnesium Sulfate 2 gm in 50 mls @ 25 mls/hr 06/21/22 16:24 Magnesium Sulf 2gm-*Swfi* IV 06/21/23 16:23 DAILY PRN Magnesium Level < 1.5 Remdesivir 100 mg/ Dextrose 250 mls @ 250 mls/hr 06/23/22 21:00 IV 06/24/22 21:59 Q24H RIYA Insulin Aspart 0 units 06/21/22 22:00 06/23/22 10:23 Insulin Aspart 300 Units/3 Ml Insuln.Pen SUBCUT 06/21/23 21:59 5 units TID.WM.HS RIYA Administration Protocol Insulin Glargine 64 units 06/22/22 09:00 06/23/22 10:23 Insulin Glargine 300 Units/3 Ml Insuln.Pen SUBCUT 06/22/23 08:59 64 units QAM RIYA Administration Insulin Glargine 60 units 06/21/22 21:00 06/22/22 21:20 Insulin Glargine 300 Units/3 Ml Insuln.Pen SUBCUT 06/21/23 20:59 60 units QPM RIYA Administration Labetalol HCl 10 mg 06/21/22 16:24 Labetalol 100 Mg/20 Ml Vial IV-PUSH 06/21/23 16:23 Q4H PRN for sbp >150 Lidocaine 1 patch 06/22/22 09:00 06/23/22 08:16 Lidocaine 4% Adh..Patch TOPICAL 06/22/23 08:59 1 patch Q24H RIYA Administration Lisinopril 2.5 mg 06/22/22 09:00 06/23/22 08:14 Lisinopril 2.5 Mg Tablet PO 06/22/23 08:59 2.5 mg DAILY RIYA Administration Meclizine HCl 25 mg 06/21/22 18:44 Meclizine 25 Mg Tablet PO 06/21/23 18:43 Q8H PRN Dizziness Metoprolol Tartrate 50 mg 06/21/22 21:00 06/23/22 08:14 Metoprolol Tartrate 50 Mg Tablet PO 06/21/23 20:59 50 mg BID IRYA Administration Naproxen 500 mg 06/21/22 18:44 Naproxen 500 Mg Tablet PO 06/21/23 18:43 BID PRN pain Nitroglycerin 0.4 mg 06/21/22 18:44 Nitroglycerin 0.4 Mg Tab.Subl SUBLINGUAL 06/21/23 18:43 Q5M PRN Chest Pain Omeprazole 40 mg 06/22/22 09:00 06/23/22 08:14 Omeprazole 20 Mg Capsule.Dr PO 06/22/23 08:59 40 mg DAILY RIYA Administration Ondansetron HCl 4 mg 06/21/22 16:24 Ondansetron 4 Mg/2 Ml Vial IV-PUSH 06/21/23 16:23 Q8H PRN Nausea And Vomiting Potassium Chloride 40 meq 06/21/22 16:24 Potassium Chloride Er 20 Meq Tab.Er.Prt PO 06/21/23 16:23 DAILY PRN Hypokalemia Primidone 100 mg 06/21/22 22:00 06/23/22 08:14 Primidone 50 Mg Tablet PO 06/21/23 21:59 100 mg TID RIYA Administration Prochlorperazine Maleate 5 mg 06/21/22 18:44 Prochlorperazine Maleate 5 Mg Tablet PO 06/21/23 18:43 Q8H PRN Nausea Quetiapine Fumarate 50 mg 06/21/22 22:00 06/22/22 21:18 Quetiapine Fumarate 50 Mg Tablet PO 06/21/23 21:59 50 mg QHS RIYA Administration Ropinirole HCl 0.5 mg 06/21/22 22:00 06/22/22 21:18 Ropinirole 0.5 Mg Tablet PO 06/21/23 21:59 0.5 mg QHS RIYA Administration Sodium Chloride 0 ml 06/21/22 14:16 06/21/22 18:07 Sodium Chloride 0.9 % 10 Ml Syringe IV-PUSH 06/21/23 14:15 10 ml PRN PRN Administration Flush Vitamin D 125 mcg 06/22/22 09:00 06/23/22 08:14 Cholecalciferol 125 Mcg (5,000 Units) Capsule PO 06/22/23 08:59 125 mcg DAILY RIYA Administration Zinc Gluconate 50 mg 06/22/22 09:00 06/23/22 08:14 Zinc Gluconate 50 Mg Tablet PO 06/22/23 08:59 50 mg DAILY RIYA Administration A&P - Hospitalist Assessment/Plan (1) Traumatic intraparenchymal hemorrhage: (2) COVID-19: (3) Hypertension: (4) Diabetes: Plan Traumatic intraparenchymal hemorrhage RULED OUT -Appreciate neurosurgery consult, they will not be available 06/23 and recommendMRI with follow-up to hospitalist team -MRI brain-NO HEMORRHAGE, cortical atrophy with chronic microvascular ischemic changes seen on prior -CT head - subtle hypodensity involving the region of the left basal ganglia measuring 29 mm, small intraparenchymal hemorrhage cannot be excluded (RULED OUTWITH MRI) -Aspirin Plavix resumed Bilateral lower leg tenderness -venous dopp negative COVID -no hypoxia, has cough and sore throat -Remdesivir x3 days per pharmacy recs- last dose 06/24, unable to use Paxlovid absolutely contraindicated with Primidone -Vit C, Zinc, Vit D -CXR nonacute Chronic Conditions 1. DM- Glargine, SSI coverage, metformin, Canagliflozin 2. CAD, HTN, HLD-Clopidogrel, furosemide, lisinopril 3. SUNIL not compliant with CPAP as his machine was recalled and has not replaced, case management to assist obtaining 4. Depression- Citalopram, Quetiapine 5. GERD- omeprazole 6. RLS-ropinirole, primidone DISCHARGE planning- therapy recs for SNF, could go after 3rd dose of Remdesivir which could be given earlier on 06/24 if bed available. CM aware and checking into [facility] Documented By: MARIO Dsouza 2 [id number] Signed By: <Electronically signed by MARIO Nuñez> 06/23/22 1305 <Electronically signed by Dharmesh Linda MD> 06/23/22 0045 [facility] Work Phone: [phone] 668-766010-29-2022 Consult note Author Ji Crespo [facility] June 22, 2022 8:37am Note Date/Time June 22, 2022 8 :33am [facility] [address] [place] [address] Neurosurgery Consult Note Signed Patient: Mannie Michel MR#: [id number] : 1960 Acct:[id number] Age/Sex: 61 / M Adm Date: 2 Loc: Room: [address] [place] [address] Type: ADM IN Attending Dr: Dharmesh Linda MD Copies to: MD Ji Rose MD [facility]~ HPI History of Present Illness Consult Date: 06/22/2022 Requesting Provider: Maddi Reason for Consult: Brain bleed History of Present Illness: This is a 61-year-old male with a medical history of diabetes hypertension hyperlipidemia former smoker with coronary artery disease on Plavix. He lives alone uses a walker to get around he was walking from the kitchen to the living room felt weak and dizzy hit the ground and probably lost consciousness. He does not know how long he was down. Today he does not complain of a headache hesays his back hurts chronically he feels as though his legs are weak. He has had no illness injury or trauma other than that mentioned above. He does not feel he has a unilateral weakness. He says he got sick on . He was COVID-positive. Review of Systems Review of Systems All other systems reviewed & are negative unless noted below or in HPI PMFSH Vaccinated for COVID-19?: Yes Medical History (Updated 06/22/22 @ 08:34 by Ji Crespo MD) Diabetes Former smoker Hyperlipidemia Hypertension Myocardial infarction Sleep apnea with use of continuous positive airway pressure (CPAP) Surgical History (Updated 06/21/22 @ 14:40 by Cristina Storm RN) H/O endoscopy History of liver biopsy Stented coronary artery Family History Mother Heart trouble Social History Smoking Status: Former smoker Tobacco Type: cigarettes Substance Use Type: None Substance Abuse Comment: FORMER USER OF ETOH Meds Medications and Allergies Allergies codeine Allergy (Verified 06/21/22 14:40) Unknown Reaction latex Allergy (Verified 06/21/22 14:40) Rash Home Medications atorvastatin 80 mg tablet 80 mg PO DAILY 07/07/18 [History Confirmed 06/21/22] canagliflozin 100 mg tablet 300 mg PO DAILY 07/07/18 [History Confirmed 06/21/22] cholecalciferol (vitamin D3) 125 mcg (5,000 unit) capsule 5,000 unit PO DAILY 07/07/18 [History Confirmed 06/21/22] gabapentin 400 mg capsule 1,200 mg PO TID 07/07/18 [History Confirmed 06/21/22] insulin aspart U-100 100 unit/mL (3 mL) subcutaneous pen 3 units subcut QID 07/07/18 [History Confirmed 06/21/22] insulin glargine 100 unit/mL (3 mL) subcutaneous pen 64 unit subcut QAM 07/07/18[History Confirmed 06/21/22] lisinopril 5 mg tablet 2.5 mg PO DAILY 07/07/18 [History Confirmed 06/21/22] meclizine 25 mg tablet 25 mg PO Q8H PRN Dizziness 07/07/18 [History Confirmed 06/21/22] metformin 500 mg tablet 1,000 mg PO BID 07/07/18 [History Confirmed 06/21/22] naproxen 500 mg tablet 500 mg PO BID PRN pain #20 tabs 07/07/18 [Rx Confirmed 06/21/22] omeprazole 40 mg capsule,delayed release 40 mg PO DAILY 07/07/18 [History Confirmed 06/21/22] prochlorperazine maleate 5 mg tablet 5 mg PO Q8H PRN Nausea 07/07/18 [History Confirmed 06/21/22] aspirin 325 mg tablet,delayed release 325 mg PO DAILY 06/15/20 [History Confirmed 06/21/22] clopidogrel 75 mg tablet 75 mg PO DAILY 06/15/20 [History Confirmed 06/21/22] furosemide 20 mg tablet 20 mg PO DAILY 06/15/20 [History Confirmed 06/21/22] nitroglycerin 0.4 mg sublingual tablet 0.4 mg sublingual Q5M PRN Chest Pain 06/15/20 [History Confirmed 06/21/22] primidone 50 mg tablet (Mysoline) 100 mg PO TID 06/15/20 [History Confirmed 06/21/22] ondansetron 4 mg disintegrating tablet 4 mg PO Q6H PRN nausea and vomiting #7 tabs 12/11/20 [Rx Confirmed 06/21/22] lidocaine 5 % topical patch 1 patch topical Q24H #15 ea 06/16/21 [Rx Confirmed 06/21/22] methocarbamol 750 mg tablet 750 mg PO TID #20 tabs 06/16/21 [Rx Confirmed 06/21/22] hydrocodone 5 mg-acetaminophen 325 mg tablet 1 tab PO TID PRN pain 2 days #6 tabs 01/15/22 [Rx Confirmed 06/21/22] canagliflozin 300 mg tablet (Invokana) 300 mg PO DAILY 06/21/22 [History Confirmed 06/21/22] citalopram 40 mg tablet 40 mg PO DAILY 06/21/22 [History Confirmed 06/21/22] dulaglutide 3 mg/0.5 mL subcutaneous pen injector (Trulicity) 3 mg subcut QWEEK 06/21/22 [History Confirmed 06/21/22] famotidine 20 mg tablet 20 mg PO QHS PRN Acid Reflux 06/21/22 [History Confirmed 06/21/22] fluticasone propionate 50 mcg/actuation nasal spray,suspension 2 spray intranasal DAILY 06/21/22 [History Confirmed 06/21/22] insulin glargine 100 unit/mL (3 mL) subcutaneous pen (Lantus Solostar U-100 Insulin) 60 unit subcut QPM 06/21/22 [History Confirmed 06/21/22] metoprolol tartrate 50 mg tablet 50 mg PO BID 06/21/22 [History Confirmed 06/21/22] pantoprazole 40 mg tablet,delayed release 40 mg PO DAILY 06/21/22 [History Confirmed 06/21/22] quetiapine 50 mg tablet 50 mg PO QHS 06/21/22 [History Confirmed 06/21/22] ropinirole 0.5 mg tablet 0.5 mg PO QHS 06/21/22 [History Confirmed 06/21/22] Exam Physical Exam Vital Signs: Temp Pulse Resp BP Pulse Ox O2 Del Method 98.6 F 87 16 129/82 97 Room Air 06/22/22 04:00 06/22/22 04:00 06/22/22 04:00 06/22/22 04:00 06/22/22 04:00 06/22/22 04:00 Narrative: Neurologic: patient is alert and oriented to time place and person cooperative he is able to give a good history but not a very detailed one Sensory:normal light touch upper and lower extremity and trunk through all majordermatomes spine: There is palpable tenderness diffusely of the lumbar spine, out of proportion to my degree of palpation Motor: deltoid bicep tricep handgrip iliopsoas quadricep anterior tibial gastrocnemius are grossly 5/5. Cerebellar: no leadpipe rigidity normal rapid alternating movements reflexes: 0-1+ upper and lower extremities bilaterally with no clonus, negative Maricarmen sign. Cranial nerve examination: Cranial nerve I smell is intact Cranial nerve II vision full to all quadrants bilateral Cranial nerve III pupils were equal round reactive to light unable to do a funduscopic examination Cranial nerve IV through : extraocular motion full to all quadrants Cranial nerve V: V1 V2 V3 intact Cranial nerve VII: face symmetrical bilaterally Cranial nerve VIII hearing intact bilaterally Cranial nerve IX-XI patient can phonate well able to swallow palate elevates able to shrug shoulders Cranial nerve XII tongue midline Hips: Abnormal decreased range of motion of both hips left greater than right with positive Wiley sign bilaterally. The patient has palpable groin tenderness and palpable trochanteric tenderness. Skin: reasonable turgor and texture no unusual bruising Extremities: 0-1 pulses 0-1+ pulses upper and lower extremity abdomen: soft nontender Lungs: clear bilaterally Heart: regular rate and rhythm without murmur rub or gallop Neck: supple Head: atraumatic Results Lab Results Labs: Laboratory Results - Last 48 hrs. 06/22/22 06:33: POC Glucose 171 06/22/22 06:09: PHA Creatinine Clear 107.85, Sodium 131 L, Potassium , Chloride 94 L, Carbon Dioxide 25.2, Anion Gap TNP, BUN 24 H, Creatinine 1.06, Est GFR ( Amer) > 60, Est GFR (Non-Af Amer) > 60, Glucose 178 H D, Calcium 9.2 06/22/22 06:09: Corrected WBC 6.2, Uncorrected WBC Count 6.2, RBC 5.46, Hgb 14.9, Hct 44.8, MCV 82.0 L, MCH 27.2 L, MCHC 33.2, RDW 14.4, Plt Count 173, MPV 10.1, Neut % (Auto) 69.4, Lymph % (Auto) 12.2, [place] % (Auto) 15.3, Eos % (Auto) 2.5, Baso % (Auto) 0.6, Neut # (Auto) 4.3, Lymph # (Auto) 0.8 L, [place] # (Auto) 0.9 H, Eos # (Auto) 0.2, Baso # (Auto) 0.0, Nucleated RBC % (auto) 0.2 06/21/22 20:21: POC Glucose 276 06/21/22 16:05: COVID-19 PCR Interp N/A, COVID-19 Clin Com Positive A 06/21/22 14:53: SARS Antigen (LFIA) Positive A 06/21/22 14:53: PT 11.8, INR 1.0, APTT 34.2 06/21/22 14:53: B-Natriuretic Peptide 12.0 06/21/22 14:53: Troponin I High Sens < 3 06/21/22 14:53: PHA Creatinine Clear 93.61, Sodium 132 L, Potassium 5.2 H, Chloride 93 L, Carbon Dioxide 25.3, Anion Gap 18.9 H, BUN 22, Creatinine 1.22, Est GFR ( Amer) > 60, Est GFR (Non-Af Amer) > 60, Glucose 284 H, Calcium 9.7, Total Bilirubin 0.8, AST 26, ALT 34, Alkaline Phosphatase 96 H, Total Protein 7.2, Albumin 3.9, Globulin 3.3, Albumin/Globulin Ratio 1.2 06/21/22 14:53: Corrected WBC 8.1, Uncorrected WBC Count 8.1, RBC 5.73 H, Hgb 15.6, Hct 47.0, MCV 82.0 L, MCH 27.2 L, MCHC 33.1, RDW 14.3, Plt Count 202, MPV 9.6, Neut % (Auto) 81.0, Lymph % (Auto) 6.3, [place] % (Auto) 9.8, Eos % (Auto) 2.4, Baso % (Auto) 0.5, Neut # (Auto) 6.6, Lymph # (Auto) 0.5 L, [place] # (Auto) 0.8, Eos # (Auto) 0.2, Baso # (Auto) 0.0, Nucleated RBC % (auto) 0.3 Microbiology Micro: Microbiology - Results from entire visit 06/21/22 14:53 Nasal SARS Antigen (LFIA) - Final Imaging CT Scan - head: report reviewed and image reviewed Assessment/Plan (1) Traumatic intraparenchymal hemorrhage: Plan: Have independently reviewed the CT of the brain and compared it to the December scan of the head. There was a very small hyperdensity in the left basal gangliaregion I am not certain if this really represents a hemorrhage or not my recommendation would be to do an MRI and make a final decision as to what this is. This is not a surgical lesion is causing no weakness I am not sure if it korey lesion at all again I would recommend an MRI. Please understand that I am leaving the area for the next 9 days and there will be no neurosurgical call. If neurologic deterioration appears transfer may need to be considered at this point I see no evidence for neurosurgical intervention whatsoever. Code(s): S06.30AA - Unspecified focal traumatic brain injury with loss of consciousness status unknown, initial encounter Status: Acute (2) Bilateral hip pain: Plan: This patient has a positive Wiley sign bilaterally with bilateral groin hip and trochanteric pain. There is definitely hip pathology and this is what I believe he perceives as weakness of the legs. He has no evidence whatsoever of radicular complaints but he takes an incredibly large amount of gabapentin probably 3600 mg/day for a prolonged period of time. I see no reason for neurosurgical follow-up on this patient as an outpatient Code(s): M25.551 - Pain in right hip; M25.552 - Pain in left hip Status: Acute (3) COVID-19: Code(s): U07.1 - COVID-19 Status: Acute (4) Hypertension: Code(s): I10 - Essential (primary) hypertension Status: Acute (5) Diabetes: Code(s): E11.9 - Type 2 diabetes mellitus without complications Status: Acute Documented By: Ji Crespo MD 06/22/2223 Signed By: <Electronically signed by MD Ji Crespo> 06/22/2237 [facility] Work Phone: [phone] 469-460110-28-2022 History and physical note Author Dharmesh Linda [facility] June 21, 2022 6:54pm Note Date/Time June 21, 2022 4 :29pm [facility] [address] [place] [address] Hospitalist H&P Signed Patient: Mannie Michel MR#: [id number] : 1960 Acct:[id number] Age/Sex: 61 / M Adm Date: 2 Loc: Room: [address] [place] [address] Type: ADM IN Attending Dr: Dharmesh Linda MD Copies to: Dharmesh Linda MD [facility]~ HPI DATE OF EXAMINATION: 06/21/22 CHIEF COMPLAINT: fall HISTORY OF PRESENT ILLNESS: Patient is a 61-year-old gentleman past medical history of diabetes, hypertension, hyperlipidemia, former smoker, CAD presented to emergency department after a fall. States that he lives alone and uses walker to get around at home. Today while he was walking from the kitchen to the living room he suddenly felt weak and dizzy and fell to the ground and lost consciousness. He does not know how long he was on the floor and when he woke up could not get up by himself. He called his home nurse who called the squad as she could not help him. He is complaining of headache and backache but denies any other focalneurological symptoms. States that he started having cough, runny nose about a week ago and has been feeling weak. He is vaccinated against COVID with booster. He denies any other complaints. COVID test came back positive in the ED. CT head showed hypodensity in the left basal ganglia suggestive of bleedingwith no other signs. ED physician spoke to neurosurgery who would like to see the patient on consult. Patient states that he does not smoke currently and quit smoking long time ago and does not drink alcohol or use recreational drugs. Review of Systems Review of Systems All other systems reviewed & are negative unless noted below or in HPI PMFSH Vaccinated for COVID-19?: Yes Medical History (Updated 06/21/22 @ 18:52 by Dharmesh Linda MD) Diabetes Former smoker Hyperlipidemia Hypertension Myocardial infarction Sleep apnea with use of continuous positive airway pressure (CPAP) Surgical History (Updated 06/21/22 @ 14:40 by Cristina Storm RN) H/O endoscopy History of liver biopsy Stented coronary artery Family History Mother Heart trouble Social History Smoking Status: Never smoker Tobacco Type: cigarettes Substance Use Type: None Substance Abuse Comment: FORMER USER OF ETOH Meds Medications and Allergies Allergies codeine Allergy (Verified 06/21/22 14:40) Unknown Reaction latex Allergy (Verified 06/21/22 14:40) Rash Home Medications atorvastatin 80 mg tablet 80 mg PO DAILY 07/07/18 [History Confirmed 06/21/22] canagliflozin 100 mg tablet 300 mg PO DAILY 07/07/18 [History Confirmed 06/21/22] cholecalciferol (vitamin D3) 125 mcg (5,000 unit) capsule 5,000 unit PO DAILY 07/07/18 [History Confirmed 06/21/22] gabapentin 400 mg capsule 1,200 mg PO TID 07/07/18 [History Confirmed 06/21/22] insulin aspart U-100 100 unit/mL (3 mL) subcutaneous pen 3 units subcut QID 07/07/18 [History Confirmed 06/21/22] insulin glargine 100 unit/mL (3 mL) subcutaneous pen 64 unit subcut QAM 07/07/18[History Confirmed 06/21/22] lisinopril 5 mg tablet 2.5 mg PO DAILY 07/07/18 [History Confirmed 06/21/22] meclizine 25 mg tablet 25 mg PO Q8H PRN Dizziness 07/07/18 [History Confirmed 06/21/22] metformin 500 mg tablet 1,000 mg PO BID 07/07/18 [History Confirmed 06/21/22] naproxen 500 mg tablet 500 mg PO BID PRN pain #20 tabs 07/07/18 [Rx Confirmed 06/21/22] omeprazole 40 mg capsule,delayed release 40 mg PO DAILY 07/07/18 [History Confirmed 06/21/22] prochlorperazine maleate 5 mg tablet 5 mg PO Q8H PRN Nausea 07/07/18 [History Confirmed 06/21/22] aspirin 325 mg tablet,delayed release 325 mg PO DAILY 06/15/20 [History Confirmed 06/21/22] clopidogrel 75 mg tablet 75 mg PO DAILY 06/15/20 [History Confirmed 06/21/22] furosemide 20 mg tablet 20 mg PO DAILY 06/15/20 [History Confirmed 06/21/22] nitroglycerin 0.4 mg sublingual tablet 0.4 mg sublingual Q5M PRN Chest Pain 06/15/20 [History Confirmed 06/21/22] primidone 50 mg tablet (Mysoline) 100 mg PO TID 06/15/20 [History Confirmed 06/21/22] ondansetron 4 mg disintegrating tablet 4 mg PO Q6H PRN nausea and vomiting #7 tabs 12/11/20 [Rx Confirmed 06/21/22] lidocaine 5 % topical patch 1 patch topical Q24H #15 ea 06/16/21 [Rx Confirmed 06/21/22] methocarbamol 750 mg tablet 750 mg PO TID #20 tabs 06/16/21 [Rx Confirmed 06/21/22] dicyclomine 20 mg tablet 20 mg PO QID #14 tabs 09/26/21 [Rx Confirmed 06/21/22] hydrocodone 5 mg-acetaminophen 325 mg tablet 1 tab PO TID PRN pain 2 days #6 tabs 01/15/22 [Rx Confirmed 06/21/22] canagliflozin 300 mg tablet (Invokana) 300 mg PO DAILY 06/21/22 [History Confirmed 06/21/22] citalopram 40 mg tablet 40 mg PO DAILY 06/21/22 [History Confirmed 06/21/22] dulaglutide 3 mg/0.5 mL subcutaneous pen injector (Trulicity) 3 mg subcut QWEEK 06/21/22 [History Confirmed 06/21/22] erythromycin 250 mg tablet 250 mg PO Q12H 06/21/22 [History Confirmed 06/21/22] famotidine 20 mg tablet 20 mg PO QHS PRN Acid Reflux 06/21/22 [History Confirmed 06/21/22] fluticasone propionate 50 mcg/actuation nasal spray,suspension 2 spray intranasal DAILY 06/21/22 [History Confirmed 06/21/22] insulin glargine 100 unit/mL (3 mL) subcutaneous pen (Lantus Solostar U-100 Insulin) 60 unit subcut QPM 06/21/22 [History Confirmed 06/21/22] metoprolol tartrate 50 mg tablet 50 mg PO BID 06/21/22 [History Confirmed 06/21/22] pantoprazole 40 mg tablet,delayed release 40 mg PO DAILY 06/21/22 [History Confirmed 06/21/22] quetiapine 50 mg tablet 50 mg PO QHS 06/21/22 [History Confirmed 06/21/22] ropinirole 0.5 mg tablet 0.5 mg PO QHS 06/21/22 [History Confirmed 06/21/22] Exam Physical Exam Vital Signs: Temp Pulse Resp BP Pulse Ox O2 Del Method 98.7 F 87 20 137/84 96 Room Air 06/21/22 14:34 06/21/22 16:09 06/21/22 16:09 06/21/22 16:09 06/21/22 16:09 06/21/22 16:09 Narrative: General: Awake, alert, oriented x3 not in acute distress HEENT: Normocephalic, atraumatic, PERRLA, normal mucosa Cardiovascular: Regular rate and rhythm , S1-S2 heard, no murmurs or gallops Lungs: No wheezing or rhonchi heard Gastrointestinal: Soft, nontender, bowel sounds heard Extremities: No edema Neurological: no sensory or motor deficit Skin: Dry and warm, no rashes or lesions Psych: Normal mood and affect Results Lab Results Labs: Laboratory Last Values Corrected WBC 8.1 X10E3/uL (4.1-10.5) 06/21/22 14:53 Uncorrected WBC Count 8.1 x10E3/uL (4.5-11.0) 06/21/22 14:53 RBC 5.73 x10E6/uL (3.90-5.60) H 06/21/22 14:53 Hgb 15.6 g/dL (13.0-17.0) 06/21/22 14:53 Hct 47.0 % (38.8-50.0) 06/21/22 14:53 MCV 82.0 fl (83.5-101) L 06/21/22 14:53 MCH 27.2 pg (27.5-35.2) L 06/21/22 14:53 MCHC 33.1 g/dL (32.5-35.6) 06/21/22 14:53 RDW 14.3 % (12.0-14.8) 06/21/22 14:53 Plt Count 202 x10E3/uL (150-450) 06/21/22 14:53 MPV 9.6 fl (6.6-10.1) 06/21/22 14:53 Neut % (Auto) 81.0 % (.) 06/21/22 14:53 Lymph % (Auto) 6.3 % (.) 06/21/22 14:53 Cr[place]enden % (Auto) 9.8 % (.) 06/21/22 14:53 Eos % (Auto) 2.4 % (.) 06/21/22 14:53 Baso % (Auto) 0.5 % (.) 06/21/22 14:53 Neut # (Auto) 6.6 x10E3/uL (1.8-7.7) 06/21/22 14:53 Lymph # (Auto) 0.5 x10E3/uL (1.00-4.8) L 06/21/22 14:53 [place]enden # (Auto) 0.8 x10E3/uL (0.0-0.8) 06/21/22 14:53 Eos # (Auto) 0.2 x10E3/uL (0.0-0.45) 06/21/22 14:53 Baso # (Auto) 0.0 x10E3/uL (0.0-0.2) 06/21/22 14:53 Nucleated RBC % (auto) 0.3 % (0-0.5) 06/21/22 14:53 PT 11.8 Seconds (9.0-12.9) 06/21/22 14:53 INR 1.0 06/21/22 14:53 APTT 34.2 Seconds (25.1-36.5) 06/21/22 14:53 PHA Creatinine Clear 93.61 06/21/22 14:53 Sodium 132 mmol/L (136-146) L 06/21/22 14:53 Potassium 5.2 mmol/L (3.5-5.1) H 06/21/22 14:53 Chloride 93 mmol/L (95-114) L 06/21/22 14:53 Carbon Dioxide 25.3 mmol/L (22.0-30.0) 06/21/22 14:53 Anion Gap 18.9 mEq/L (6.0-15.0) H 06/21/22 14:53 BUN 22 mg/dL (9-23) 06/21/22 14:53 Creatinine 1.22 mg/dL (0.64-1.27) 06/21/22 14:53 Est GFR ( Amer) > 60 mL/Min 06/21/22 14:53 Est GFR (Non-Af Amer) > 60 mL/Min 06/21/22 14:53 Glucose 284 mg/dL (70-100) H 06/21/22 14:53 Calcium 9.7 mg/dL (8.2-10.2) 06/21/22 14:53 Total Bilirubin 0.8 mg/dL (0.3-1.2) 06/21/22 14:53 AST 26 U/L (10-42) 06/21/22 14:53 ALT 34 U/L (10-60) 06/21/22 14:53 Alkaline Phosphatase 96 U/L (32-92) H 06/21/22 14:53 Troponin I High Sens < 3 pg/mL (0-20) 06/21/22 14:53 B-Natriuretic Peptide 12.0 pg/mL (5-100) 06/21/22 14:53 Total Protein 7.2 gm/dL (6.1-7.9) 06/21/22 14:53 Albumin 3.9 gm/dL (3.2-5.5) 06/21/22 14:53 Globulin 3.3 gm/dL 06/21/22 14:53 Albumin/Globulin Ratio 1.2 06/21/22 14:53 COVID-19 PCR Interp N/A 06/21/22 16:05 SARS Antigen (LFIA) Positive (Negative) A 06/21/22 14:53 Microbiology Results Micro: Microbiology - Results from entire visit 06/21/22 14:53 Nasal SARS Antigen (LFIA) - Final A&P - Hospitalist Assessment/Plan (1) Traumatic intraparenchymal hemorrhage: (2) COVID-19: (3) Hypertension: (4) Diabetes: Plan Patient will be admitted to floor for further evaluation management Is complaining of headache and low back pain which is chronic to him Denies any focal neurological symptoms CT head shows subtle hypodensity involving the region of the left basal ganglia measuring 29 mm, small intraparenchymal hemorrhage cannot be excluded Consult neurosurgery Labs showed no leukocytosis with normal BUNs/creatinine and potassium 5.2 Chest x-ray showed no acute pathology Continue home meds Manage pain DVT prophylaxis Fall precautions CODE STATUS full code Documented By: Dharmesh Linda MD 06/21/22 1629 Signed By: <Electronically signed by Dharmesh Linda MD> 06/21/22 9244 [facility] Work Phone: [phone]) 492-217010-28-2022 History and physical note Author Dharmesh Linda [facility] June 21, 2022 6:54pm Note Date/Time June 21, 2022 4 :29pm [facility] [address] [place] [address] Hospitalist H&P Signed Patient: Mannie Michel MR#: [id number] : 1960 Acct:[id number] Age/Sex: 61 / M Adm Date: 2 Loc: Room: [address] [place] [address] Type: ADM IN Attending Dr: Dharmesh Linda MD Copies to: Dharmesh Linda MD [facility]~ HPI DATE OF EXAMINATION: 06/21/22 CHIEF COMPLAINT: fall HISTORY OF PRESENT ILLNESS: Patient is a 61-year-old gentleman past medical history of diabetes, hypertension, hyperlipidemia, former smoker, CAD presented to emergency department after a fall. States that he lives alone and uses walker to get around at home. Today while he was walking from the kitchen to the living room he suddenly felt weak and dizzy and fell to the ground and lost consciousness. He does not know how long he was on the floor and when he woke up could not get up by himself. He called his home nurse who called the squad as she could not help him. He is complaining of headache and backache but denies any other focalneurological symptoms. States that he started having cough, runny nose about a week ago and has been feeling weak. He is vaccinated against COVID with booster. He denies any other complaints. COVID test came back positive in the ED. CT head showed hypodensity in the left basal ganglia suggestive of bleedingwith no other signs. ED physician spoke to neurosurgery who would like to see the patient on consult. Patient states that he does not smoke currently and quit smoking long time ago and does not drink alcohol or use recreational drugs. Review of Systems Review of Systems All other systems reviewed & are negative unless noted below or in HPI PMFSH Vaccinated for COVID-19?: Yes Medical History (Updated 06/21/22 @ 18:52 by Dharmesh Linda MD) Diabetes Former smoker Hyperlipidemia Hypertension Myocardial infarction Sleep apnea with use of continuous positive airway pressure (CPAP) Surgical History (Updated 06/21/22 @ 14:40 by Cristina Storm RN) H/O endoscopy History of liver biopsy Stented coronary artery Family History Mother Heart trouble Social History Smoking Status: Never smoker Tobacco Type: cigarettes Substance Use Type: None Substance Abuse Comment: FORMER USER OF ETOH Meds Medications and Allergies Allergies codeine Allergy (Verified 06/21/22 14:40) Unknown Reaction latex Allergy (Verified 06/21/22 14:40) Rash Home Medications atorvastatin 80 mg tablet 80 mg PO DAILY 07/07/18 [History Confirmed 06/21/22] canagliflozin 100 mg tablet 300 mg PO DAILY 07/07/18 [History Confirmed 06/21/22] cholecalciferol (vitamin D3) 125 mcg (5,000 unit) capsule 5,000 unit PO DAILY 07/07/18 [History Confirmed 06/21/22] gabapentin 400 mg capsule 1,200 mg PO TID 07/07/18 [History Confirmed 06/21/22] insulin aspart U-100 100 unit/mL (3 mL) subcutaneous pen 3 units subcut QID 07/07/18 [History Confirmed 06/21/22] insulin glargine 100 unit/mL (3 mL) subcutaneous pen 64 unit subcut QAM 07/07/18[History Confirmed 06/21/22] lisinopril 5 mg tablet 2.5 mg PO DAILY 07/07/18 [History Confirmed 06/21/22] meclizine 25 mg tablet 25 mg PO Q8H PRN Dizziness 07/07/18 [History Confirmed 06/21/22] metformin 500 mg tablet 1,000 mg PO BID 07/07/18 [History Confirmed 06/21/22] naproxen 500 mg tablet 500 mg PO BID PRN pain #20 tabs 07/07/18 [Rx Confirmed 06/21/22] omeprazole 40 mg capsule,delayed release 40 mg PO DAILY 07/07/18 [History Confirmed 06/21/22] prochlorperazine maleate 5 mg tablet 5 mg PO Q8H PRN Nausea 07/07/18 [History Confirmed 06/21/22] aspirin 325 mg tablet,delayed release 325 mg PO DAILY 06/15/20 [History Confirmed 06/21/22] clopidogrel 75 mg tablet 75 mg PO DAILY 06/15/20 [History Confirmed 06/21/22] furosemide 20 mg tablet 20 mg PO DAILY 06/15/20 [History Confirmed 06/21/22] nitroglycerin 0.4 mg sublingual tablet 0.4 mg sublingual Q5M PRN Chest Pain 06/15/20 [History Confirmed 06/21/22] primidone 50 mg tablet (Mysoline) 100 mg PO TID 10/22/20 [History Confirmed 06/21/22] ondansetron 4 mg disintegrating tablet 4 mg PO Q6H PRN nausea and vomiting #7 tabs 12/11/20 [Rx Confirmed 06/21/22] lidocaine 5 % topical patch 1 patch topical Q24H #15 ea 06/16/21 [Rx Confirmed 06/21/22] methocarbamol 750 mg tablet 750 mg PO TID #20 tabs 06/16/21 [Rx Confirmed 06/21/22] dicyclomine 20 mg tablet 20 mg PO QID #14 tabs 09/26/21 [Rx Confirmed 06/21/22] hydrocodone 5 mg-acetaminophen 325 mg tablet 1 tab PO TID PRN pain 2 days #6 tabs 01/15/22 [Rx Confirmed 06/21/22] canagliflozin 300 mg tablet (Invokana) 300 mg PO DAILY 06/21/22 [History Confirmed 06/21/22] citalopram 40 mg tablet 40 mg PO DAILY 06/21/22 [History Confirmed 06/21/22] dulaglutide 3 mg/0.5 mL subcutaneous pen injector (Trulicity) 3 mg subcut QWEEK 06/21/22 [History Confirmed 06/21/22] erythromycin 250 mg tablet 250 mg PO Q12H 06/21/22 [History Confirmed 06/21/22] famotidine 20 mg tablet 20 mg PO QHS PRN Acid Reflux 06/21/22 [History Confirmed 06/21/22] fluticasone propionate 50 mcg/actuation nasal spray,suspension 2 spray intranasal DAILY 06/21/22 [History Confirmed 06/21/22] insulin glargine 100 unit/mL (3 mL) subcutaneous pen (Lantus Solostar U-100 Insulin) 60 unit subcut QPM 06/21/22 [History Confirmed 06/21/22] metoprolol tartrate 50 mg tablet 50 mg PO BID 06/21/22 [History Confirmed 06/21/22] pantoprazole 40 mg tablet,delayed release 40 mg PO DAILY 06/21/22 [History Confirmed 06/21/22] quetiapine 50 mg tablet 50 mg PO QHS 06/21/22 [History Confirmed 06/21/22] ropinirole 0.5 mg tablet 0.5 mg PO QHS 06/21/22 [History Confirmed 06/21/22] Exam Physical Exam Vital Signs: Temp Pulse Resp BP Pulse Ox O2 Del Method 98.7 F 87 20 137/84 96 Room Air 06/21/22 14:34 06/21/22 16:09 06/21/22 16:09 06/21/22 16:09 06/21/22 16:09 06/21/22 16:09 Narrative: General: Awake, alert, oriented x3 not in acute distress HEENT: Normocephalic, atraumatic, PERRLA, normal mucosa Cardiovascular: Regular rate and rhythm , S1-S2 heard, no murmurs or gallops Lungs: No wheezing or rhonchi heard Gastrointestinal: Soft, nontender, bowel sounds heard Extremities: No edema Neurological: no sensory or motor deficit Skin: Dry and warm, no rashes or lesions Psych: Normal mood and affect Results Lab Results Labs: Laboratory Last Values Corrected WBC 8.1 X10E3/uL (4.1-10.5) 06/21/22 14:53 Uncorrected WBC Count 8.1 x10E3/uL (4.5-11.0) 06/21/22 14:53 RBC 5.73 x10E6/uL (3.90-5.60) H 06/21/22 14:53 Hgb 15.6 g/dL (13.0-17.0) 06/21/22 14:53 Hct 47.0 % (38.8-50.0) 06/21/22 14:53 MCV 82.0 fl (83.5-101) L 06/21/22 14:53 MCH 27.2 pg (27.5-35.2) L 06/21/22 14:53 MCHC 33.1 g/dL (32.5-35.6) 06/21/22 14:53 RDW 14.3 % (12.0-14.8) 06/21/22 14:53 Plt Count 202 x10E3/uL (150-450) 06/21/22 14:53 MPV 9.6 fl (6.6-10.1) 06/21/22 14:53 Neut % (Auto) 81.0 % (.) 06/21/22 14:53 Lymph % (Auto) 6.3 % (.) 06/21/22 14:53 Crittenden % (Auto) 9.8 % (.) 06/21/22 14:53 Eos % (Auto) 2.4 % (.) 06/21/22 14:53 Baso % (Auto) 0.5 % (.) 06/21/22 14:53 Neut # (Auto) 6.6 x10E3/uL (1.8-7.7) 06/21/22 14:53 Lymph # (Auto) 0.5 x10E3/uL (1.00-4.8) L 06/21/22 14:53 [place]enden # (Auto) 0.8 x10E3/uL (0.0-0.8) 06/21/22 14:53 Eos # (Auto) 0.2 x10E3/uL (0.0-0.45) 06/21/22 14:53 Baso # (Auto) 0.0 x10E3/uL (0.0-0.2) 06/21/22 14:53 Nucleated RBC % (auto) 0.3 % (0-0.5) 06/21/22 14:53 PT 11.8 Seconds (9.0-12.9) 06/21/22 14:53 INR 1.0 06/21/22 14:53 APTT 34.2 Seconds (25.1-36.5) 06/21/22 14:53 PHA Creatinine Clear 93.61 06/21/22 14:53 Sodium 132 mmol/L (136-146) L 06/21/22 14:53 Potassium 5.2 mmol/L (3.5-5.1) H 06/21/22 14:53 Chloride 93 mmol/L (95-114) L 06/21/22 14:53 Carbon Dioxide 25.3 mmol/L (22.0-30.0) 06/21/22 14:53 Anion Gap 18.9 mEq/L (6.0-15.0) H 06/21/22 14:53 BUN 22 mg/dL (9-23) 06/21/22 14:53 Creatinine 1.22 mg/dL (0.64-1.27) 06/21/22 14:53 Est GFR ( Amer) > 60 mL/Min 06/21/22 14:53 Est GFR (Non-Af Amer) > 60 mL/Min 06/21/22 14:53 Glucose 284 mg/dL (70-100) H 06/21/22 14:53 Calcium 9.7 mg/dL (8.2-10.2) 06/21/22 14:53 Total Bilirubin 0.8 mg/dL (0.3-1.2) 06/21/22 14:53 AST 26 U/L (10-42) 06/21/22 14:53 ALT 34 U/L (10-60) 06/21/22 14:53 Alkaline Phosphatase 96 U/L (32-92) H 06/21/22 14:53 Troponin I High Sens < 3 pg/mL (0-20) 06/21/22 14:53 B-Natriuretic Peptide 12.0 pg/mL (5-100) 06/21/22 14:53 Total Protein 7.2 gm/dL (6.1-7.9) 06/21/22 14:53 Albumin 3.9 gm/dL (3.2-5.5) 06/21/22 14:53 Globulin 3.3 gm/dL 06/21/22 14:53 Albumin/Globulin Ratio 1.2 06/21/22 14:53 COVID-19 PCR Interp N/A 06/21/22 16:05 SARS Antigen (LFIA) Positive (Negative) A 06/21/22 14:53 Microbiology Results Micro: Microbiology - Results from entire visit 06/21/22 14:53 Nasal SARS Antigen (LFIA) - Final A&P - Hospitalist Assessment/Plan (1) Traumatic intraparenchymal hemorrhage: (2) COVID-19: (3) Hypertension: (4) Diabetes: Plan Patient will be admitted to floor for further evaluation management Is complaining of headache and low back pain which is chronic to him Denies any focal neurological symptoms CT head shows subtle hypodensity involving the region of the left basal ganglia measuring 29 mm, small intraparenchymal hemorrhage cannot be excluded Consult neurosurgery Labs showed no leukocytosis with normal BUNs/creatinine and potassium 5.2 Chest x-ray showed no acute pathology Continue home meds Manage pain DVT prophylaxis Fall precautions CODE STATUS full code Documented By: Dharmesh Linda MD 06/21/22 7970 Signed By: <Electronically signed by Dharmesh Linda MD> 06/21/22 2003 [facility] Work Phone: [phone]) 421-304710-28-2022 Hospital Discharge instructions Additional Instructions SNF to manage: - PT/OT to eval and treat - Monitor VS routine - Hx. HTN - Monitor blood sugars - Dx. DM - Patient has tested positive for Covid-19 06/21/22, please see attached instructions and follow up with the Health Department for further instructions. - Fall [facility] Phone: [phone]) 982-525006-16-2022 Miscellaneous Notes* Telephone Encounter - RT Lalita(R) - 02/07/2022 10:19 AM EDTSummary: Procedure instructions You are scheduled for a liver biopsy, On 02/08/22. You are to arrive at 830 am and Report to [facility] First Floor Radiology Registration Desk. You can expect to be here for 4-8 hours. Diet: Do not eat any solid food after midnight the day of/night before your procedure. You may drink clear liquids until 8 am, which means black coffee, apple juice, black tea, or water only. Medications: Ok to take your cardiac, blood pressure, anti-seizure, and chronic pain medications with a sip of water, please take prior to arrival. Bring your current medication list. RADIOLOGY RECOMMENDS THESE MEDICATION RESTRICTIONS: Are you taking any of following medications? Plavix. IFok with your Prescribing Provider: Stop Plavix 5 days prior to this procedure. Labs: Lab-work needs to be drawn? Yes Price Analyst/Transportation: How will you be arriving for your procedure? Private car. You will need a responsible adult to accompany you to and from the procedure. Your wedding transportation driver is required to stay with you until you are taken into the procedure room. Spoke directly with patient [facility]Reason for visit Narrative* Chief Complaint fall Reason for Visit COVID-19 Diabetes Hypertension Traumatic intraparenchymal hemorrhage [facility] Work Phone: Chifr complaint+Reason for visit Narrative* Chief Complaint fall Reason for Visit Bilateral hip pain COVID-19 Diabetes Hypertension Traumatic intraparenchymal hemorrhage [facility] Work Phone: Consult note Author Ji Crespo [facility] June 22, 2022 8:37am Note Date/Time June 22, 2022 8 :33am [facility] [address] [place] [address] Neurosurgery Consult Note Signed Patient: Mannie Michel MR#: [id number] : 1960 Acct:[id number] Age/Sex: 61 / M Adm Date: 2 Loc: Room: [address] [place] [address] Type: ADM IN Attending Dr: Dharmesh Linda MD Copies to: MD Ji Rose MD [facility]~ HPI History of Present Illness Consult Date: 06/22/2022 Requesting Provider: Maddi Reason for Consult: Brain bleed History of Present Illness: This is a 61-year-old male with a medical history of diabetes hypertension hyperlipidemia former smoker with coronary artery disease on Plavix. He lives alone uses a walker to get around he was walking from the kitchen to the living room felt weak and dizzy hit the ground and probably lost consciousness. He does not know how long he was down. Today he does not complain of a headache hesays his back hurts chronically he feels as though his legs are weak. He has had no illness injury or trauma other than that mentioned above. He does not feel he has a unilateral weakness. He says he got sick on . He was COVID-positive. Review of Systems Review of Systems All other systems reviewed & are negative unless noted below or in HPI PMFSH Vaccinated for COVID-19?: Yes Medical History (Updated 06/22/22 @ 08:34 by Ji Crespo MD) Diabetes Former smoker Hyperlipidemia Hypertension Myocardial infarction Sleep apnea with use of continuous positive airway pressure (CPAP) Surgical History (Updated 06/21/22 @ 14:40 by Cristina Storm RN) H/O endoscopy History of liver biopsy Stented coronary artery Family History Mother Heart trouble Social History Smoking Status: Former smoker Tobacco Type: cigarettes Substance Use Type: None Substance Abuse Comment: FORMER USER OF ETOH Meds Medications and Allergies Allergies codeine Allergy (Verified 06/21/22 14:40) Unknown Reaction latex Allergy (Verified 06/21/22 14:40) Rash Home Medications atorvastatin 80 mg tablet 80 mg PO DAILY 07/07/18 [History Confirmed 06/21/22] canagliflozin 100 mg tablet 300 mg PO DAILY 07/07/18 [History Confirmed 06/21/22] cholecalciferol (vitamin D3) 125 mcg (5,000 unit) capsule 5,000 unit PO DAILY 07/07/18 [History Confirmed 06/21/22] gabapentin 400 mg capsule 1,200 mg PO TID 07/07/18 [History Confirmed 06/21/22] insulin aspart U-100 100 unit/mL (3 mL) subcutaneous pen 3 units subcut QID 07/07/18 [History Confirmed 06/21/22] insulin glargine 100 unit/mL (3 mL) subcutaneous pen 64 unit subcut QAM 07/07/18[History Confirmed 06/21/22] lisinopril 5 mg tablet 2.5 mg PO DAILY 07/07/18 [History Confirmed 06/21/22] meclizine 25 mg tablet 25 mg PO Q8H PRN Dizziness 07/07/18 [History Confirmed 06/21/22] metformin 500 mg tablet 1,000 mg PO BID 07/07/18 [History Confirmed 06/21/22] naproxen 500 mg tablet 500 mg PO BID PRN pain #20 tabs 07/07/18 [Rx Confirmed 06/21/22] omeprazole 40 mg capsule,delayed release 40 mg PO DAILY 07/07/18 [History Confirmed 06/21/22] prochlorperazine maleate 5 mg tablet 5 mg PO Q8H PRN Nausea 07/07/18 [History Confirmed 06/21/22] aspirin 325 mg tablet,delayed release 325 mg PO DAILY 06/15/20 [History Confirmed 06/21/22] clopidogrel 75 mg tablet 75 mg PO DAILY 06/15/20 [History Confirmed 06/21/22] furosemide 20 mg tablet 20 mg PO DAILY 06/15/20 [History Confirmed 06/21/22] nitroglycerin 0.4 mg sublingual tablet 0.4 mg sublingual Q5M PRN Chest Pain 06/15/20 [History Confirmed 06/21/22] primidone 50 mg tablet (Mysoline) 100 mg PO TID 06/15/20 [History Confirmed 06/21/22] ondansetron 4 mg disintegrating tablet 4 mg PO Q6H PRN nausea and vomiting #7 tabs 12/11/20 [Rx Confirmed 06/21/22] lidocaine 5 % topical patch 1 patch topical Q24H #15 ea 06/16/21 [Rx Confirmed 06/21/22] methocarbamol 750 mg tablet 750 mg PO TID #20 tabs 06/16/21 [Rx Confirmed 06/21/22] hydrocodone 5 mg-acetaminophen 325 mg tablet 1 tab PO TID PRN pain 2 days #6 tabs 01/15/22 [Rx Confirmed 06/21/22] canagliflozin 300 mg tablet (Invokana) 300 mg PO DAILY 06/21/22 [History Confirmed 06/21/22] citalopram 40 mg tablet 40 mg PO DAILY 06/21/22 [History Confirmed 06/21/22] dulaglutide 3 mg/0.5 mL subcutaneous pen injector (Trulicity) 3 mg subcut QWEEK 06/21/22 [History Confirmed 06/21/22] famotidine 20 mg tablet 20 mg PO QHS PRN Acid Reflux 06/21/22 [History Confirmed 06/21/22] fluticasone propionate 50 mcg/actuation nasal spray,suspension 2 spray intranasal DAILY 06/21/22 [History Confirmed 06/21/22] insulin glargine 100 unit/mL (3 mL) subcutaneous pen (Lantus Solostar U-100 Insulin) 60 unit subcut QPM 06/21/22 [History Confirmed 06/21/22] metoprolol tartrate 50 mg tablet 50 mg PO BID 06/21/22 [History Confirmed 06/21/22] pantoprazole 40 mg tablet,delayed release 40 mg PO DAILY 06/21/22 [History Confirmed 06/21/22] quetiapine 50 mg tablet 50 mg PO QHS 06/21/22 [History Confirmed 06/21/22] ropinirole 0.5 mg tablet 0.5 mg PO QHS 06/21/22 [History Confirmed 06/21/22] Exam Physical Exam Vital Signs: Temp Pulse Resp BP Pulse Ox O2 Del Method 98.6 F 87 16 129/82 97 Room Air 06/22/22 04:00 06/22/22 04:00 06/22/22 04:00 06/22/22 04:00 06/22/22 04:00 06/22/22 04:00 Narrative: Neurologic: patient is alert and oriented to time place and person cooperative he is able to give a good history but not a very detailed one Sensory:normal light touch upper and lower extremity and trunk through all majordermatomes spine: There is palpable tenderness diffusely of the lumbar spine, out of proportion to my degree of palpation Motor: deltoid bicep tricep handgrip iliopsoas quadricep anterior tibial gastrocnemius are grossly 5/5. Cerebellar: no leadpipe rigidity normal rapid alternating movements reflexes: 0-1+ upper and lower extremities bilaterally with no clonus, negative Maricarmen sign. Cranial nerve examination: Cranial nerve I smell is intact Cranial nerve II vision full to all quadrants bilateral Cranial nerve III pupils were equal round reactive to light unable to do a funduscopic examination Cranial nerve IV through : extraocular motion full to all quadrants Cranial nerve V: V1 V2 V3 intact Cranial nerve VII: face symmetrical bilaterally Cranial nerve VIII hearing intact bilaterally Cranial nerve IX-XI patient can phonate well able to swallow palate elevates able to shrug shoulders Cranial nerve XII tongue midline Hips: Abnormal decreased range of motion of both hips left greater than right with positive Wiley sign bilaterally. The patient has palpable groin tenderness and palpable trochanteric tenderness. Skin: reasonable turgor and texture no unusual bruising Extremities: 0-1 pulses 0-1+ pulses upper and lower extremity abdomen: soft nontender Lungs: clear bilaterally Heart: regular rate and rhythm without murmur rub or gallop Neck: supple Head: atraumatic Results Lab Results Labs: Laboratory Results - Last 48 hrs. 06/22/22 06:33: POC Glucose 171 06/22/22 06:09: PHA Creatinine Clear 107.85, Sodium 131 L, Potassium , Chloride 94 L, Carbon Dioxide 25.2, Anion Gap TNP, BUN 24 H, Creatinine 1.06, Est GFR ( Amer) > 60, Est GFR (Non-Af Amer) > 60, Glucose 178 H D, Calcium 9.2 06/22/22 06:09: Corrected WBC 6.2, Uncorrected WBC Count 6.2, RBC 5.46, Hgb 14.9, Hct 44.8, MCV 82.0 L, MCH 27.2 L, MCHC 33.2, RDW 14.4, Plt Count 173, MPV 10.1, Neut % (Auto) 69.4, Lymph % (Auto) 12.2, Crittenden % (Auto) 15.3, Eos % (Auto) 2.5, Baso % (Auto) 0.6, Neut # (Auto) 4.3, Lymph # (Auto) 0.8 L, Cr[place]enden # (Auto) 0.9 H, Eos # (Auto) 0.2, Baso # (Auto) 0.0, Nucleated RBC % (auto) 0.2 06/21/22 20:21: POC Glucose 276 06/21/22 16:05: COVID-19 PCR Interp N/A, COVID-19 Clin Com Positive A 06/21/22 14:53: SARS Antigen (LFIA) Positive A 06/21/22 14:53: PT 11.8, INR 1.0, APTT 34.2 06/21/22 14:53: B-Natriuretic Peptide 12.0 06/21/22 14:53: Troponin I High Sens < 3 06/21/22 14:53: PHA Creatinine Clear 93.61, Sodium 132 L, Potassium 5.2 H, Chloride 93 L, Carbon Dioxide 25.3, Anion Gap 18.9 H, BUN 22, Creatinine 1.22, Est GFR ( Amer) > 60, Est GFR (Non-Af Amer) > 60, Glucose 284 H, Calcium 9.7, Total Bilirubin 0.8, AST 26, ALT 34, Alkaline Phosphatase 96 H, Total Protein 7.2, Albumin 3.9, Globulin 3.3, Albumin/Globulin Ratio 1.2 06/21/22 14:53: Corrected WBC 8.1, Uncorrected WBC Count 8.1, RBC 5.73 H, Hgb 15.6, Hct 47.0, MCV 82.0 L, MCH 27.2 L, MCHC 33.1, RDW 14.3, Plt Count 202, MPV 9.6, Neut % (Auto) 81.0, Lymph % (Auto) 6.3, [place]enden % (Auto) 9.8, Eos % (Auto) 2.4, Baso % (Auto) 0.5, Neut # (Auto) 6.6, Lymph # (Auto) 0.5 L, [place]enden # (Auto) 0.8, Eos # (Auto) 0.2, Baso # (Auto) 0.0, Nucleated RBC % (auto) 0.3 Microbiology Micro: Microbiology - Results from entire visit 06/21/22 14:53 Nasal SARS Antigen (LFIA) - Final Imaging CT Scan - head: report reviewed and image reviewed Assessment/Plan (1) Traumatic intraparenchymal hemorrhage: Plan: Have independently reviewed the CT of the brain and compared it to the December CAT scan of the head. There was a very small hyperdensity in the left basal gangliaregion I am not certain if this really represents a hemorrhage or not my recommendation would be to do an MRI and make a final decision as to what this is. This is not a surgical lesion is causing no weakness I am not sure if it korey lesion at all again I would recommend an MRI. Please understand that I am leaving the area for the next 9 days and there will be no neurosurgical call. If neurologic deterioration appears transfer may need to be considered at this point I see no evidence for neurosurgical intervention whatsoever. Code(s): S06.30AA - Unspecified focal traumatic brain injury with loss of consciousness status unknown, initial encounter Status: Acute (2) Bilateral hip pain: Plan: This patient has a positive Wiley sign bilaterally with bilateral groin hip and trochanteric pain. There is definitely hip pathology and this is what I believe he perceives as weakness of the legs. He has no evidence whatsoever of radicular complaints but he takes an incredibly large amount of gabapentin probably 3600 mg/day for a prolonged period of time. I see no reason for neurosurgical follow-up on this patient as an outpatient Code(s): M25.551 - Pain in right hip; M25.552 - Pain in left hip Status: Acute (3) COVID-19: Code(s): U07.1 - COVID-19 Status: Acute (4) Hypertension: Code(s): I10 - Essential (primary) hypertension Status: Acute (5) Diabetes: Code(s): E11.9 - Type 2 diabetes mellitus without complications Status: Acute Documented By: Ji Crespo MD 06/22/22822 Signed By: <Electronically signed by MD Ji Crespo> 06/22/22836 [facility] Work Phone: Evaluation + Plan note No data available for this section [facility] Evaluation + Plan note Future Appointments Appointment Date:02/17/2023 01:45:00 PM Scheduled Provider: Location:[facility] Appointment Type:Surgery FT Future Scheduled Tests Laboratory* CBC w/ Indices 12/12/22 * Comprehensive Metabolic Panel 12/12/22 [facility] Evaluation + Plan note Future Appointments Appointment Date:02/24/2023 11:15:00 AM Scheduled Provider: Location:[facility] Appointment Type:Surgery FT Future Scheduled Tests Laboratory* CBC w/ Indices 12/12/22 * [facility]ments Appointment Date:05/01/2023 12:30:00 PM Scheduled Provider: Location:[facility] Appointment Type:Surgery FT Appointment Date:06/11/2023 12:00:00 PM Scheduled Provider: Location:[facility] Appointment Type:Surgery FT Future Scheduled Tests Laboratory* Fecal WBC Lactoferrin 04/10/23 * Giardia lamblia, Direct Detection EIA 04/10/23 * O & P Exam, Routine 04/10/23 * Clostridium Difficile PCR 04/10/23 * Enteric Panel by PCR 04/10/23 * CBC w/ Indices 12/12/22 * Comprehensive Metabolic Panel 12/12/22 [facility] Evaluation + Plan note Future Appointments Appointment Date:06/11/2023 12:00:00 PM Scheduled Provider: Location:[facility] Surgical Services Appointment Type:Surgery FT Future Scheduled Tests Laboratory* Fecal WBC Lactoferrin 04/10/23 * Giardia lamblia, Direct Detection EIA 04/10/23 * O & P Exam, Routine 04/10/23 * Clostridium Difficile PCR 04/10/23 * Enteric Panel by PCR 04/10/23 * CBC w/ Indices 12/12/22 * Comprehensive Metabolic [facility]12/22 [facility] Work Phone: evaluation note* Diagnosis Onset Date Resolution Status COVID-19 acute Diabetes acute Hypertension acute Traumatic intraparenchymal hemorrhage acute [facility] Work Phone: Evaluation note* Diagnosis Onset Date Resolution Status Bilateral hip pain acute COVID-19 acute Diabetes acute Hypertension acute Traumatic intraparenchymal hemorrhage acute [facility] Work Phone: Evaluation note* Diagnosis Onset Date Resolution Status DKA (diabetic ketoacidosis) acute Hypertension acute Knee pain, right acute Left knee pain acute Positive fecal occult blood test acute Vomiting acute [facility] Work Phone: Evaluation note* Diagnosis Onset Date Resolution Status DKA (diabetic ketoacidosis) acute Hypertension acute Knee pain, right acute Left knee pain acute Positive fecal occult blood test acute [facility] Work Phone: Evaluation note* Diagnosis Primary osteoarthritis of both knees- Primary Primary localized osteoarthrosis, lower leg Morbid obesity due to excess calories (HCC) [facility] Diagnosis Onset Date Resolution Status Acute hyperglycemia acute Acute hypokalemia acute Hypomagnesemia acute Suicidal ideation acute [facility] Work Phone: evaluation note* Diagnosis Onset Date Resolution Status Acute hyperglycemia acute Acute hypokalemia acute Hypomagnesemia acute Suicidal ideation acute Generalized anxiety disorder acute Major depressive disorder, recurrent, moderate acute [facility] Work Phone: Evaluation note* Diagnosis Onset Date Resolution Status Acute hyperglycemia resolved Acute hypokalemia resolved Hypomagnesemia resolved Suicidal ideation resolved Generalized anxiety disorder acute Major depressive disorder, recurrent, moderate acute [facility] Work Phone: evaluation note* Diagnosis Onset Date Resolution Status Acute hyperglycemia resolved Acute hypokalemia resolved Hypomagnesemia resolved Suicidal ideation resolved Generalized anxiety disorder acute Major depressive disorder, recurrent, moderate acute Chest pain acute Diabetes acute Hyperlipidemia acute Hypertension acute [facility] Work Phone: evaluation note* Diagnosis Onset Date Resolution Status Acute hyperglycemia resolved Acute hypokalemia resolved Hypomagnesemia resolved Suicidal ideation resolved Generalized anxiety disorder acute Major depressive disorder, recurrent, moderate acute Bronchospasm with bronchitis, acute acute Chest pain acute Costochondritis acute Diabetes acute Hyperlipidemia acute Hypertension acute [facility] Work Phone: evaluation note* Diagnosis Onset Date Resolution Status Acute hyperglycemia resolved Acute hypokalemia resolved Hypomagnesemia resolved Suicidal ideation resolved Generalized anxiety disorder acute Major depressive disorder, recurrent, moderate acute Bronchospasm with bronchitis, acute acute Chest pain acute Costochondritis acute Hyperlipidemia acute [facility] Work Phone: evaluation note* Diagnosis Onset Date Resolution Status Bronchospasm with bronchitis, acute acute Chest pain acute Costochondritis acute Hyperlipidemia acute [facility] Work Phone: evaluation note* Diagnosis Onset Date Resolution Status Diabetes acute Hyperlipidemia acute Bronchospasm with bronchitis, acute resolved Chest pain resolved Costochondritis resolved CAD (coronary artery disease) acute Depression with suicidal ideation acute Diabetic neuropathy acute GERD (gastroesophageal reflux disease) acute Hyperlipidemia acute Obesity (BMI 30-39.9) acute SUNIL on CPAP acute Restless legs syndrome (RLS) acute Uncontrolled diabetes mellitus acute [facility] Work Phone: evaluation note* Diagnosis Onset Date Resolution Status Diabetes acute Hyperlipidemia acute Bronchospasm with bronchitis, acute resolved Chest pain resolved Costochondritis resolved CAD (coronary artery disease) acute Depression with suicidal ideation acute Diabetic neuropathy acute GERD (gastroesophageal reflux disease) acute Hyperlipidemia acute Obesity (BMI 30-39.9) acute SUNIL on CPAP acute Restless legs syndrome (RLS) acute Uncontrolled diabetes mellitus acute CAD (coronary artery disease) acute Depression with suicidal ideation acute Diabetes acute Diabetic neuropathy acute 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 acute Generalized anxiety disorder acute GERD (gastroesophageal reflux disease) acute Hyperlipidemia acute Major depressive disorder, recurrent, moderate acute SUNIL on CPAP acute Restless legs syndrome (RLS) acute Uncontrolled diabetes mellitus acute Unresponsive episode acute [facility] Work Phone: evaluation note* Diagnosis Onset Date Resolution Status Obesity (BMI 30-39.9) acute 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 Diagnosis Right knee pain, unspecified chronicity- Primary Unspecified dementia, unspecified severity, with other behavioral disturbance ([facility]) [facility] Diagnosis Type 2 diabetes mellitus without complication, with long-term current use of insulin ([facility])- Primary Left knee pain, unspecified chronicity Unspecified dementia, unspecified severity, with other behavioral disturbance ([facility]) Generalized anxiety disorder [facility]History [facility] Present illness NarrativePatient returns in follow-up of problems as noted. He is doing well. He denies any angina or other cardiac symptomatology and his risk factors including diabetes hypertension and hyperlipidemia are well controlled. He is modestly active and denies cardiac symptomatology. The merits of diet exerciseand weight loss were discussed.[facility] [employer] [facility] Work Phone: History of Present illness Narrative* Patient returns in follow-up of problems as noted. He continues to live in an extended care facility ever since his original fall with intracranial injury and traumatic brain injury. Cognitive decline is noted. * I cannot elicit from him, though, any symptoms of coronary disease. Control and management of risk factors including lipids and hypertension as well as diabetes is reviewed and his management appearsto be adequate and appropriate. He was congratulated on his continued tobacco abstinence but we didadvocate the merits of diet exercise and weight loss. [facility] [employer] [facility] Work Phone: History of Present illness NarrativeReturns in follow- up of problems as noted. He is done well. He has no anginal symptomatology such as that that preceded his original diagnosis. Management of his diabetes and hypertension have improved because he has been actively dieting and losing weight. It appears he is lost about 24 pounds since he was last seen and he was congratulated on these efforts and encouraged to continue. Otherwise it appears he is doing well and his lipids blood pressure and diabetes are well managed. Because of this we recommend no change and follow-up next year.[facility] [employer] [facility] Work Phone: Hospital Discharge instructions No data available for this section [facility] Discharge instructions Additional Instructions If your symptoms return/worsen or you develop any further concerns or symptoms please see your doctor or return to the emergency department immediately.[facility] Work Phone: Hospital Discharge instructions Additional Instructions Follow-up with orthopedic doctor provided Return to ED if develop worsening symptoms or [facility] Work Phone: Hospital Discharge instructions Additional Instructions Be sure to follow-up with your doctor and with the orthopedics doctor. We are happy to see you if there are any further problems or concerns.[facility] Work Phone: Hospital Discharge instructions Additional Instructions Follow up with your doctor. Make sure you are using your insulin correctly. Your blood sugar came down easily here with insulin.[facility] Work Phone: InstructionsNot on filedocumented in this encounter [facility]ructionsNot on filedocumented in this encounter [facility]Progress note Author Dharmesh Linda [facility] June 23, 2022 4:01pm Note Date/Time June 22, 2022 1 2:54pm [facility] [address] [place] [address] Hospitalist Progress Note Signed with Addenda Patient: Mannie Michel MR#: [id number] : 1960 Acct:[id number] Age/Sex: 61 / M Adm Date: 2 Loc: Room: [address] [place] [address] Type: ADM IN Attending Dr: Dharmesh Linda MD Copies to: ~ ADDENDUM1 I personally saw this patient on the day of the encounter, reviewed the history,performed the fuentes elements of the exam and formulated the plan of care and confirmed the nurse practitioners/residents/internet database specialist written note. Addendum Documented By: Dharmesh Linda MD 06/23/22 1601 Addendum Signed By: <Electronically signed by Dharmesh Linda MD> 06/23/22 1601 Date of Service: 06/22/2022 Subjective Subjective Narrative: Patient is seen and examined. He is up in the chair. He states he is not feeling well overall. Reports some dyspnea, currently on room air without hypoxia. Also reports sore throat that started this morning. After auscultation of lungscoughs quite harshly, not moist or productive. Reports pain left posterior lateral head with associated bump from where he fell. Indicates he has some lightheadedness with this. Offers no other complaints of pain. Appetite is good denies any abdominal symptoms. Exam Physical Exam Vital Signs: Temp Pulse Resp BP Pulse Ox O2 Del Method 98.4 F 85 18 113/80 94 L Room Air 06/22/22 11:45 06/22/22 11:45 06/22/22 11:45 06/22/22 11:45 06/22/22 11:45 06/22/22 11:45 Narrative: Alert, in chair, no distress at rest RRR no abnormal heart tones dimin without wheeze or rhonchi, RA S/NT, NABS, obese no edema BLE, calves nontender Left posterior scalp with tender raised area skin appears intact, painful with exam Cervical spine nontender with exam and range of motion Objective Lab Results CBC & Chem 7: 06/22/22 06:09 06/22/22 07:47 Microbiology Results Microbiology 06/21/22 14:53 Nasal SARS Antigen (LFIA) - Final Meds Allergies and Active Meds Allergies codeine Allergy (Verified 06/21/22 14:40) Unknown Reaction latex Allergy (Verified 06/21/22 14:40) Rash Active Meds: Active Medications Generic Name Dose Route Start Last Admin Trade Name Fabien PRN Reason Stop Dose Admin Acetaminophen 650 mg 06/21/22 16:24 Acetaminophen 325 Mg Tablet PO 06/21/23 16:23 Q6HR PRN Pain Scale 1 - 3 or fever Hydrocodone Bitart/Acetaminophen 1 tab 06/21/22 18:44 06/22/22 06:11 Hydrocodone/Acetaminophen 5-325 Mg Tablet PO 1 tab TID PRN Administration pain Ascorbic Acid 500 mg 06/21/22 21:00 06/22/22 08:25 Ascorbic Acid 500 Mg Tablet PO 06/21/23 20:59 500 mg BID RIYA Administration Aspirin 325 mg 06/22/22 09:00 Aspirin 325 Mg Tablet. PO 06/22/23 08:59 DAILY RIYA Atorvastatin Calcium 80 mg 06/21/22 22:00 06/21/22 21:51 Atorvastatin 80 Mg Tablet PO 06/21/23 21:59 80 mg HS RIYA Administration Canagliflozin 300 mg 06/22/22 09:00 06/22/22 08:25 Canagliflozin 300 Mg Tablet PO 06/22/23 08:59 300 mg DAILY RIYA Administration Citalopram Hydrobromide 40 mg 06/22/22 09:00 06/22/22 08:25 Citalopram 40 Mg Tablet PO 06/22/23 08:59 40 mg DAILY RIYA Administration Clopidogrel Bisulfate 75 mg 06/22/22 09:00 Clopidogrel Bisulfate 75 Mg Tablet PO 06/22/23 08:59 DAILY RIYA Cyclobenzaprine HCl 10 mg 06/21/22 22:00 06/22/22 08:26 Cyclobenzaprine 10 Mg Tablet PO 06/21/23 21:59 10 mg TID RIYA Administration Famotidine 20 mg 06/21/22 18:44 06/21/22 21:51 Famotidine 20 Mg Tablet PO 06/21/23 18:43 20 mg QHS PRN Administration Acid Reflux Fluticasone Propionate 2 spray 06/22/22 09:00 06/22/22 08:27 Fluticasone Propionate Macy 120 Macy/16 Gm Bottle INTRANASAL 06/22/23 08:59 2 spray DAILY RIYA Administration Furosemide 20 mg 06/22/22 09:00 06/22/22 08:25 Furosemide 20 Mg Tablet PO 06/22/23 08:59 20 mg DAILY RIYA Administration Gabapentin 1,200 mg 06/21/22 22:00 06/22/22 08:26 Gabapentin 400 Mg Capsule PO 06/21/23 21:59 1,200 mg TID RIYA Administration Guaifenesin/Dextromethorphan 10 ml 06/21/22 16:24 Guaif/Dextromethorphan Syrup 10 Ml Udc PO 06/21/23 16:23 Q8H PRN Cough Magnesium Sulfate 2 gm in 50 mls @ 25 mls/hr 06/21/22 16:24 Magnesium Sulf 2gm-*Swfi* IV 06/21/23 16:23 DAILY PRN Magnesium Level < 1.5 Insulin Aspart 0 units 06/21/22 22:00 06/22/22 11:42 Insulin Aspart 300 Units/3 Ml Insuln.Pen SUBCUT 10/28/23 21:59 7 units TID.WM.HS RIYA Administration Protocol Insulin Glargine 64 units 06/22/22 09:00 06/22/22 08:27 Insulin Glargine 300 Units/3 Ml Insuln.Pen SUBCUT 06/22/23 08:59 64 units QAM RIYA Administration Insulin Glargine 60 units 06/21/22 21:00 06/21/22 21:52 Insulin Glargine 300 Units/3 Ml Insuln.Pen SUBCUT 06/21/23 20:59 60 units QPM RIYA Administration Labetalol HCl 10 mg 06/21/22 16:24 Labetalol 100 Mg/20 Ml Vial IV-PUSH 06/21/23 16:23 Q4H PRN for sbp >150 Lidocaine 1 patch 06/22/22 09:00 Lidocaine 4% Adh..Patch TOPICAL 06/22/23 08:59 Q24H [facility] Lisinopril 2.5 mg 06/22/22 09:00 06/22/22 10:27 Lisinopril 2.5 Mg Tablet PO 06/22/23 08:59 Not Given DAILY [facility] Meclizine HCl 25 mg 06/21/22 18:44 Meclizine 25 Mg Tablet PO 06/21/23 18:43 Q8H PRN Dizziness Metoprolol Tartrate 50 mg 06/21/22 21:00 06/22/22 08:26 Metoprolol Tartrate 50 Mg Tablet PO 06/21/23 20:59 50 mg BID RIYA Administration Naproxen 500 mg 06/21/22 18:44 Naproxen 500 Mg Tablet PO 06/21/23 18:43 BID PRN pain Nitroglycerin 0.4 mg 06/21/22 18:44 Nitroglycerin 0.4 Mg Tab.Subl SUBLINGUAL 06/21/23 18:43 Q5M PRN Chest Pain Non-Formulary Medication 3 mg 06/28/22 09:00 Dulaglutide [Trulicity] SUBCUT 06/28/23 08:59 QWEEK RIYA Omeprazole 40 mg 06/22/22 09:00 06/22/22 08:25 Omeprazole 20 Mg Capsule.Dr PO 06/22/23 08:59 40 mg DAILY RIYA Administration Ondansetron HCl 4 mg 06/21/22 16:24 Ondansetron 4 Mg/2 Ml Vial IV-PUSH 06/21/23 16:23 Q8H PRN Nausea And Vomiting Potassium Chloride 40 meq 06/21/22 16:24 Potassium Chloride Er 20 Meq Tab.Er.Prt PO 06/21/23 16:23 DAILY PRN Hypokalemia Primidone 100 mg 06/21/22 22:00 06/22/22 08:26 Primidone 50 Mg Tablet PO 06/21/23 21:59 100 mg TID RIYA Administration Prochlorperazine Maleate 5 mg 06/21/22 18:44 Prochlorperazine Maleate 5 Mg Tablet PO 06/21/23 18:43 Q8H PRN Nausea Quetiapine Fumarate 50 mg 06/21/22 22:00 06/21/22 21:51 Quetiapine Fumarate 50 Mg Tablet PO 06/21/23 21:59 50 mg QHS RIYA Administration Ropinirole HCl 0.5 mg 06/21/22 22:00 06/21/22 21:51 Ropinirole 0.5 Mg Tablet PO 06/21/23 21:59 0.5 mg QHS RIYA Administration Sodium Chloride 0 ml 06/21/22 14:16 06/21/22 18:07 Sodium Chloride 0.9 % 10 Ml Syringe IV-PUSH 06/21/23 14:15 10 ml PRN PRN Administration Flush Vitamin D 125 mcg 06/22/22 09:00 06/22/22 08:25 Cholecalciferol 125 Mcg (5,000 Units) Capsule PO 06/22/23 08:59 125 mcg DAILY RIYA Administration Zinc Gluconate 50 mg 06/22/22 09:00 06/22/22 08:26 Zinc Gluconate 50 Mg Tablet PO 06/22/23 08:59 50 mg DAILY RIYA Administration A&P - Hospitalist Assessment/Plan (1) Traumatic intraparenchymal hemorrhage: (2) COVID-19: (3) Hypertension: (4) Diabetes: Plan Traumatic intraparenchymal hemorrhage -Appreciate neurosurgery consult, they will not be available Today and recommendMRI with follow-up to hospitalist team -MRI brain pending -CT head - subtle hypodensity involving the region of the left basal ganglia measuring 29 mm, small intraparenchymal hemorrhage cannot be excluded -Aspirin Plavix on hold, per discussion with Dr. Brown he is okay with aspirin therapy continued, would hold Plavix x1 week if indeed there his bleed Bilateral lower leg tenderness -venous dopp pending COVID -no hypoxia, has cough and sore throat -Paxlovid started with multiple comorbidities at risk for decline, hold Canagliflozin, Quetiapine, Primidone with interactions as d/w patient will monitor for complication from med discontinuance. Later pharmacy communication Paxlovid not recommended despite discontinuance of Primidone, therefore 3 days Remdesivir will be started -Vit C, Zinc, Vit D -CXR nonacute Chronic Conditions 1. DM- Glargine, SSI coverage 2. CAD, HTN, HLD-Clopidogrel, furosemide, lisinopril 3. SUNIL not compliant with CPAP as his machine was recalled and has not replaced, case management to assist obtaining 4. Depression- Citalopram 5. GERD- omeprazole 6. RLS-ropinirole, primidone held Documented By: MARIO Dsouza 2 [id number] Signed By: <Electronically signed by INGRID-HAYDEE Nuñez> 06/22/22 1538 <Electronically signed by Dharmesh Linda MD> 06/23/22 1558 [facility] Work Phone: Progress note Author Dharmesh Linda [facility] June 23, 2022 4:01pm Note Date/Time June 23, 2022 1 1:56am [facility] [address] [place] [address] Hospitalist Progress Note Signed with Addenda Patient: Mannie Michel MR#: [id number] : 1960 Acct:[id number] Age/Sex: 61 / M Adm Date: 2 Loc: Room: [address] [place] [address] Type: ADM IN Attending Dr: Dharmesh Linda MD Copies to: ~ ADDENDUM1 I personally saw this patient on the day of the encounter, reviewed the history,performed the fuentes elements of the exam and formulated the plan of care and confirmed the nurse practitioners/residents/internet database specialist written note. Addendum Documented By: Dharmesh Linda MD 06/23/22 1601 Addendum Signed By: <Electronically signed by Dharmesh Linda MD> 06/23/22 1601 Date of Service: 06/23/2022 Subjective Subjective Narrative: Patient seen and examined. In bed, states he is not feeling well. Still reporting heaviness to his breathing, no distress and on RA. Intake adequate. Poor sleep, normally takes melatonin. Updated on MRI results. He will receive 3 doses Remdesevir. Updated on therapy evals and recs for SNF, agreeable. Sunshine updated telephonically- she is currently a patient at [facility] herself Exam Physical Exam Vital Signs: Temp Pulse Resp BP Pulse Ox O2 Del Method 97.9 F 80 18 111/77 93 L Room Air 06/23/22 05:04 06/23/22 08:00 06/23/22 08:00 06/23/22 08:00 06/23/22 08:00 06/23/22 08:00 Narrative: Alert, in bed, no distress at rest RRR no abnormal heart tones dimin without wheeze or rhonchi, RA S/NT, NABS, obese no edema BLE, calves nontender Left posterior scalp with tender raised area skin appears intact, painful with exam Cervical spine nontender with exam and range of motion Objective Lab Results CBC & Chem 7: 06/22/22 06:09 06/22/22 07:47 Meds Allergies and Active Meds Allergies codeine Allergy (Verified 06/21/22 14:40) Unknown Reaction latex Allergy (Verified 06/21/22 14:40) Rash Active Meds: Active Medications Generic Name Dose Route Start Last Admin Trade Name Freq PRN Reason Stop Dose Admin Acetaminophen 650 mg 06/21/22 16:24 06/23/22 05:13 Acetaminophen 325 Mg Tablet PO 06/21/23 16:23 650 mg Q6HR PRN Administration Pain Scale 1 - 3 or fever Hydrocodone Bitart/Acetaminophen 1 tab 06/21/22 18:44 06/23/22 00:11 Hydrocodone/Acetaminophen 5-325 Mg Tablet PO 1 tab TID PRN Administration pain Ascorbic Acid 500 mg 06/21/22 21:00 06/23/22 08:14 Ascorbic Acid 500 Mg Tablet PO 06/21/23 20:59 500 mg BID RIYA Administration Aspirin 325 mg 06/22/22 09:00 Aspirin 325 Mg Tablet.Dr PO 06/22/23 08:59 DAILY RIYA Atorvastatin Calcium 80 mg 10/28/22 22:00 06/21/22 21:51 Atorvastatin 80 Mg Tablet PO 06/21/23 21:59 80 mg HS RIYA Administration Canagliflozin 300 mg 06/22/22 09:00 06/23/22 08:14 Canagliflozin 300 Mg Tablet PO 06/22/23 08:59 300 mg DAILY RIYA Administration Citalopram Hydrobromide 40 mg 06/22/22 09:00 06/23/22 08:14 Citalopram 40 Mg Tablet PO 06/22/23 08:59 40 mg DAILY RIYA Administration Clopidogrel Bisulfate 75 mg 06/22/22 09:00 Clopidogrel Bisulfate 75 Mg Tablet PO 06/22/23 08:59 DAILY RIYA Cyclobenzaprine HCl 10 mg 06/21/22 22:00 06/23/22 08:14 Cyclobenzaprine 10 Mg Tablet PO 06/21/23 21:59 10 mg TID RIYA Administration Famotidine 20 mg 06/21/22 18:44 06/21/22 21:51 Famotidine 20 Mg Tablet PO 06/21/23 18:43 20 mg QHS PRN Administration Acid Reflux Fluticasone Propionate 2 spray 06/22/22 09:00 06/23/22 08:15 Fluticasone Propionate Macy 120 Macy/16 Gm Bottle INTRANASAL 06/22/23 08:59 2 spray DAILY RIYA Administration Furosemide 20 mg 06/22/22 09:00 06/23/22 08:14 Furosemide 20 Mg Tablet PO 06/22/23 08:59 20 mg DAILY RIYA Administration Gabapentin 1,200 mg 06/21/22 22:00 06/23/22 08:14 Gabapentin 400 Mg Capsule PO 06/21/23 21:59 1,200 mg TID RIYA Administration Guaifenesin/Dextromethorphan 10 ml 06/21/22 16:24 Guaif/Dextromethorphan Syrup 10 Ml Udc PO 06/21/23 16:23 Q8H PRN Cough Magnesium Sulfate 2 gm in 50 mls @ 25 mls/hr 06/21/22 16:24 Magnesium Sulf 2gm-*Swfi* IV 06/21/23 16:23 DAILY PRN Magnesium Level < 1.5 Remdesivir 100 mg/ Dextrose 250 mls @ 250 mls/hr 06/23/22 21:00 IV 06/24/22 21:59 Q24H RIYA Insulin Aspart 0 units 06/21/22 22:00 06/23/22 10:23 Insulin Aspart 300 Units/3 Ml Insuln.Pen SUBCUT 06/21/23 21:59 5 units TID.WM.HS RIYA Administration Protocol Insulin Glargine 64 units 06/22/22 09:00 06/23/22 10:23 Insulin Glargine 300 Units/3 Ml Insuln.Pen SUBCUT 06/22/23 08:59 64 units QAM RIYA Administration Insulin Glargine 60 units 06/21/22 21:00 06/22/22 21:20 Insulin Glargine 300 Units/3 Ml Insuln.Pen SUBCUT 06/21/23 20:59 60 units QPM RIYA Administration Labetalol HCl 10 mg 06/21/22 16:24 Labetalol 100 Mg/20 Ml Vial IV-PUSH 06/21/23 16:23 Q4H PRN for sbp >150 Lidocaine 1 patch 06/22/22 09:00 06/23/22 08:16 Lidocaine 4% Adh..Patch TOPICAL 06/22/23 08:59 1 patch Q24H RIYA Administration Lisinopril 2.5 mg 06/22/22 09:00 06/23/22 08:14 Lisinopril 2.5 Mg Tablet PO 06/22/23 08:59 2.5 mg DAILY RIYA Administration Meclizine HCl 25 mg 06/21/22 18:44 Meclizine 25 Mg Tablet PO 06/21/23 18:43 Q8H PRN Dizziness Metoprolol Tartrate 50 mg 06/21/22 21:00 06/23/22 08:14 Metoprolol Tartrate 50 Mg Tablet PO 06/21/23 20:59 50 mg BID RIYA Administration Naproxen 500 mg 06/21/22 18:44 Naproxen 500 Mg Tablet PO 06/21/23 18:43 BID PRN pain Nitroglycerin 0.4 mg 06/21/22 18:44 Nitroglycerin 0.4 Mg Tab.Subl SUBLINGUAL 06/21/23 18:43 Q5M PRN Chest Pain Omeprazole 40 mg 06/22/22 09:00 06/23/22 08:14 Omeprazole 20 Mg Capsule.Dr PO 06/22/23 08:59 40 mg DAILY RIYA Administration Ondansetron HCl 4 mg 06/21/22 16:24 Ondansetron 4 Mg/2 Ml Vial IV-PUSH 06/21/23 16:23 Q8H PRN Nausea And Vomiting Potassium Chloride 40 meq 06/21/22 16:24 Potassium Chloride Er 20 Meq Tab.Er.Prt PO 06/21/23 16:23 DAILY PRN Hypokalemia Primidone 100 mg 06/21/22 22:00 06/23/22 08:14 Primidone 50 Mg Tablet PO 06/21/23 21:59 100 mg TID RIYA Administration Prochlorperazine Maleate 5 mg 06/21/22 18:44 Prochlorperazine Maleate 5 Mg Tablet PO 06/21/23 18:43 Q8H PRN Nausea Quetiapine Fumarate 50 mg 06/21/22 22:00 06/22/22 21:18 Quetiapine Fumarate 50 Mg Tablet PO 06/21/23 21:59 50 mg QHS RIYA Administration Ropinirole HCl 0.5 mg 06/21/22 22:00 06/22/22 21:18 Ropinirole 0.5 Mg Tablet PO 06/21/23 21:59 0.5 mg QHS RIYA Administration Sodium Chloride 0 ml 06/21/22 14:16 06/21/22 18:07 Sodium Chloride 0.9 % 10 Ml Syringe IV-PUSH 06/21/23 14:15 10 ml PRN PRN Administration Flush Vitamin D 125 mcg 06/22/22 09:00 06/23/22 08:14 Cholecalciferol 125 Mcg (5,000 Units) Capsule PO 06/22/23 08:59 125 mcg DAILY RIYA Administration Zinc Gluconate 50 mg 06/22/22 09:00 06/23/22 08:14 Zinc Gluconate 50 Mg Tablet PO 06/22/23 08:59 50 mg DAILY RIYA Administration A&P - Hospitalist Assessment/Plan (1) Traumatic intraparenchymal hemorrhage: (2) COVID-19: (3) Hypertension: (4) Diabetes: Plan Traumatic intraparenchymal hemorrhage RULED OUT -Appreciate neurosurgery consult, they will not be available 06/23 and recommendMRI with follow-up to hospitalist team -MRI brain-NO HEMORRHAGE, cortical atrophy with chronic microvascular ischemic changes seen on prior -CT head - subtle hypodensity involving the region of the left basal ganglia measuring 29 mm, small intraparenchymal hemorrhage cannot be excluded (RULED OUTWITH MRI) -Aspirin Plavix resumed Bilateral lower leg tenderness -venous dopp negative COVID -no hypoxia, has cough and sore throat -Remdesivir x3 days per pharmacy recs- last dose 06/24, unable to use Paxlovid absolutely contraindicated with Primidone -Vit C, Zinc, Vit D -CXR nonacute Chronic Conditions 1. DM- Glargine, SSI coverage, metformin, Canagliflozin 2. CAD, HTN, HLD-Clopidogrel, furosemide, lisinopril 3. SUNIL not compliant with CPAP as his machine was recalled and has not replaced, case management to assist obtaining 4. Depression- Citalopram, Quetiapine 5. GERD- omeprazole 6. RLS-ropinirole, primidone DISCHARGE planning- therapy recs for SNF, could go after 3rd dose of Remdesivir which could be given earlier on 06/24 if bed available. CM aware and checking into [facility] Documented By: MARIO Dsouza [id number] Signed By: <Electronically signed by ANP-HAYDEE Nuñez> 06/23/22 1305 <Electronically signed by Dharmesh Linda MD> 06/23/22 1557 [facility] Work Phone: Progress note No data available for this section [facility] Reason for referral (narrative)* Diagnostic Procedure Only (Routine) - Pending Review Specialty Diagnoses / Procedures Referred By Marissa t Referred To Contact XR IMAGING Diagnoses Primary osteoarthritis of both knees Procedures XR KNEE GENERAL 4V AP BOTH/PA BOTH/LAT/MERC BILATERAL RADIOLOGIC EXAM KNEE COMPLETE 4/MORE VIEWS Gt Abreu MD [address] [place] [address] [place] [id number] Referral ID Status Reason Start Date Expiration Date Visits Requested Visits Authorized [id number] Pending Review Auto-Generat ed Referral 04/22/2023 05/21/2024 1 1 [facility] for referral (narrative)* Diagnostic Procedure Only (Routine) - Closed Specialty Diagnoses / Procedures Referred By Contac t Referred To Contact XR IMAGING Diagnoses Pain Procedures XR KNEE GENERAL 4V AP BOTH/PA BOTH/LAT/MERC BILATERAL RADIOLOGIC EXAM KNEE COMPLETE 4/MORE VIEWS Gt Abreu MD [address] [place] [address] [place] [address] Referral ID Status Reason Start Date Expiration Date V isits Requested Visits Authorized [id number] Closed Auto-Generate d Referral 04/11/2023 05/10/2024 1 1 [facility] for visit Narrative* Diagnostic Procedure Only (Routine) - Closed Specialty Diagnoses / Procedures Referred By Marissa back Referred To Contact XR IMAGING Diagnoses Pain Procedures XR KNEE GENERAL 4V AP BOTH/PA BOTH/LAT/MERC BILATERAL RADIOLOGIC EXAM KNEE COMPLETE 4/MORE VIEWS Gt Abreu MD [address] [place] [address] [place] [address] Referral ID Status Reason Start Date Expiration Date V isits Requested Visits Authorized [id number] Closed Auto-Generate d Referral 04/11/2023 05/10/2024 [address] [facility] Summary Purpose Family History No Family History Records FoundUnknown Family Member Name Dates Details Family history of congestive heart failure: Mother(V17.49, Z82.49) Status:Active Family history of malignant neoplasm of colon: Mother(V16.0, Z80.0) Status:Active Unknown Family Member Name Dates Details Family history of congestive heart failure: Mother(V17.49, Z82.49) Status:Active Family history of malignant neoplasm of colon: Mother(V16.0, Z80.0) Status:Active Unknown Family Member Name Dates Details Family history of congestive heart failure: Mother(V17.49, Z82.49) Status:Active Family history of malignant neoplasm of colon: Mother(V16.0, Z80.0) Status:Active Unknown Family Member Name Dates Details Family history of congestive heart failure: Mother(V17.49, Z82.49) Status:Active Family history of malignant neoplasm of colon: Mother(V16.0, Z80.0) Status:Active Relationship Condition Age at Onset Recorded Date/T barry Not Specified Heart problem Unknown Unknown Family Member Name Dates Details Family history of congestive heart failure: Mother(V17.49, Z82.49) Status:Active Family history of malignant neoplasm of colon: Mother(V16.0, Z80.0) Status:Active Unknown Family Member Name Dates Details Family history of malignant neoplasm of colon: Mother(V16.0, Z80.0) Status:Active Family history of congestive heart failure: Mother(V17.49, Z82.49) Status:Active Relationship Condition Age at Onset Recorded Date/T barry mother Heart problem Unknown Relationship Condition Age at Onset Recorded Date/T barry mother Heart problem Unknown maternal grandfather Heart problem Unknown Advance Directives No Advanced Directives Records FoundDocuments on File Type Date Recorded Patient Drug Abuse Social 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 Chief Complaint and Reason for Visit Chief Complaint S09.90XA Chief Complaint DIZZINESS Chief Complaint DIZZINESS fall Chief Complaint Fall Abd pain heartburn, nausea Chief Complaint Fall Abd pain heartburn, nausea lightheaded/fall Reason for Visit DKA (diabetic ketoac idosis) Hypertension Knee pain, right Left knee pain Positive fecal occult blood test Vomiting Chief Complaint Abd pain heartburn, nausea lightheaded/fall diarrhea Reason for Visit DKA (diabetic ketoac idosis) Hypertension Knee pain, right Left knee pain Positive fecal occult blood test Chief Complaint Abd pain heartburn, nausea lightheaded/fall diarrhea Knee pain Reason for Visit DKA (diabetic ketoac idosis) Hypertension Knee pain, right Left knee pain Positive fecal occult blood test Chief Complaint ill Chief Complaint ill elevated blood sugar Reason for Visit Acute hyperglycemia Acute hypokalemia Hypomagnesemia Suicidal ideation Chief Complaint ill elevated blood sugar elevated blood sugar Reason for Visit Acute hyperglycemia Acute hypokalemia Hypomagnesemia Suicidal ideation Chief Complaint ill elevated blood sugar elevated blood sugar Major Depression Major Depression Reason for Visit Acute hyperglycemia Acute hypokalemia Hypomagnesemia Suicidal ideation Generalized anxiety disorder Major depressive disorder, recurrent, moderate Chief Complaint elevated blood sugar elevated blood sugar Major Depression Major Depression Fall Reason for Visit Acute hyperglycemia Acute hypokalemia Hypomagnesemia Suicidal ideation Generalized anxiety disorder Major depressive disorder, recurrent, moderate Chief Complaint elevated blood sugar elevated blood sugar Major Depression Major Depression Fall Chest pain Reason for Visit Acute hyperglycemia Acute hypokalemia Hypomagnesemia Suicidal ideation Generalized anxiety disorder Major depressive disorder, recurrent, moderate Chest pain Diabetes Hyperlipidemia Hypertension Chief Complaint elevated blood sugar elevated blood sugar Major Depression Major Depression Fall Chest pain Reason for Visit Acute hyperglycemia Acute hypokalemia Hypomagnesemia Suicidal ideation Generalized anxiety disorder Major depressive disorder, recurrent, moderate Bronchospasm with bronchitis, acute Chest pain Costochondritis Diabetes Hyperlipidemia Hypertension Chief Complaint bh elevated blood sugar elevated blood sugar Major Depression Major Depression Fall Chest pain n/v Reason for Visit Acute hyperglycemia Acute hypokalemia Hypomagnesemia Suicidal ideation Generalized anxiety disorder Major depressive disorder, recurrent, moderate Bronchospasm with bronchitis, acute Chest pain Costochondritis Hyperlipidemia Chief Complaint bh elevated blood sugar elevated blood sugar Major Depression Major Depression Fall Chest pain n/v dizziness Reason for Visit Acute hyperglycemia Acute hypokalemia Hypomagnesemia Suicidal ideation Generalized anxiety disorder Major depressive disorder, recurrent, moderate Bronchospasm with bronchitis, acute Chest pain Costochondritis Hyperlipidemia Chief Complaint Fall Chest pain n/v dizziness syncope Reason for Visit Bronchospasm with br onchitis, acute Chest pain Costochondritis Hyperlipidemia Chief Complaint Chest pain n/v dizziness syncope syncope Reason for Visit Diabetes Hyperlipidemia Bronchospasm with bronchitis, acute Chest pain Costochondritis CAD (coronary artery disease) Depression with suicidal ideation Diabetic neuropathy GERD (gastroesophageal reflux disease) Hyperlipidemia Obesity (BMI 30-39.9) SUNIL on CPAP Restless legs syndrome (RLS) Uncontrolled diabetes mellitus Chief Complaint Chest pain n/v dizziness syncope syncope Coronary Artery Disease Coronary Artery Disease suicidal Reason for Visit Diabetes Hyperlipidemia Bronchospasm with bronchitis, acute Chest pain Costochondritis CAD (coronary artery disease) Depression with suicidal ideation Diabetic neuropathy GERD (gastroesophageal reflux disease) Hyperlipidemia Obesity (BMI 30-39.9) SUNIL on CPAP Restless legs syndrome (RLS) Uncontrolled diabetes mellitus CAD (coronary artery disease) Depression with suicidal ideation Diabetes Diabetic neuropathy Functional neurological symptom disorder with weakness or paralysis Generalized anxiety disorder GERD (gastroesophageal reflux disease) Hyperlipidemia Major depressive disorder, recurrent, moderate SUNIL on CPAP Restless legs syndrome (RLS) Uncontrolled diabetes mellitus Unresponsive episode Chief Complaint n/v dizziness syncope syncope Coronary Artery Disease Coronary Artery Disease suicidal suicidal Reason for Visit Obesity (BMI 30-39.9 ) Functional neurological symptom disorder with weakness or paralysis Unresponsive episode Acute knee pain Suicidal ideation Additional Source Comments (unrecognized sect ion and content) No Status Records FoundNo Status Records FoundNo Status Records FoundNo Status Records FoundNo Status Records FoundNo Status Records FoundNo Status Records FoundNo Status Records FoundNo Status Records Found INFORMATION SOURCE (unrecogn ized section and content) DATE CREATED AUTHOR 09/03/2018 [facility] DATE CREATED AUTHOR AUTHOR'S ORGANIZ ATION 05/23/2020 [facility] DATE CREATED AUTHOR AUTHOR'S ORGANIZ ATION 10/01/2021 [facility] DATE CREATED AUTHOR AUTHOR'S ORGANIZ ATION 02/12/2022 [facility] DATE CREATED AUTHOR AUTHOR'S ORGANIZ ATION 02/15/2023 [facility] DATE CREATED AUTHOR AUTHOR'S ORGANIZ ATION 02/17/2023 [facility] DATE CREATED AUTHOR AUTHOR'S ORGANIZ ATION 05/15/2023 [facility] DATE CREATED AUTHOR AUTHOR'S ORGANIZ ATION 10/26/2023 [facility] DATE CREATED AUTHOR AUTHOR'S ORGANIZ ATION 06/20/2024 [facility] Source Comments (unrecognize d section and content) In the event this informatio n is protected by the Federal Confidentiality of Alcohol and Drug Abuse Patient Records regulations: The Federal rules restrict any use of the information to criminally investigate or prosecute any alcohol or drug abuse patient.[facility] the event this information is protected by the Federal Confidentiality of Alcohol and Drug Abuse Patient Records regulations: The Federal rules restrict any use of the information to criminally investigate or prosecute any alcohol or drug abuse patient.[facility] the event this information is protected by the Federal Confidentiality of Alcohol and Drug Abuse Patient Records regulations: The Federal rules restrict any use of the information to criminally investigate or prosecute any alcohol or drug abuse patient.[facility] the event this information is protected by the Federal Confidentiality of Alcohol and Drug Abuse Patient Records regulations: The Federal rules restrict any use of the information to criminally investigate or prosecute any alcohol or drug abuse patient.[facility] the event this information is protected by the Federal Confidentiality of Alcohol and Drug Abuse Patient Records regulations: The Federal rules restrict any use of the information to criminally investigate or prosecute any alcohol or drug abuse patient.[facility] Reason for Visit (unrecogniz ed section and content) Reason Comments Radiology Pre Procedure Instructions Reason Onset Date Comments Blood Sugar Problem 06/19/2024 Seizures 06/19/2024 Care Teams (unrecognized sec tion and content) Team Status: Active Member Role Status Dates [facility] Provider Activ e Team Status: Inactive Member Role Status Dates [facility] Provider Activ e Start: December 26, 2023 End: December 27, 2023 Jaclyn Gudino Jr, MD Emergency Provider Active Start: December 26, 2023 End: December 27, 2023 Team Status: Inactive Member Role Status Dates [facility] Provider Activ e Start: January 05, 2024 End: January 05, 2024 Wiley Haynes DO Emergency Provider Active St art: January 05, 2024 End: January 05, 2024 Hayder George DO Admit Provider Active Start: January 05, 2024 End: January 05, 2024 Liam Rodriguez MD Attending Provider Active St art: January 05, 2024 End: January 05, 2024 Team Status: Inactive Member Role Status Dates [facility] Provider Activ e Start: February 05, 2024 End: February 05, 2024 Davonte Mendez DO Emergency Provider Active Start: February 05, 2024 End: February 05, 2024 Team Status: Inactive Member Role Status Dates [facility] Provider Activ e Start: February 23, 2024 End: February 24, 2024 Jaclyn Gudino Jr, MD Emergency Provider Active Start: February 23, 2024 End: February 24, 2024 Team Status: Active Member Role Status Dates [facility] Provider Activ e Start: March 24, 2024 Jaclyn Gudino Jr, MD Emergency Provider Active Start: March 24, 2024 Nigel Rdz MD Admit Provide r, Attending Provider Active Start: March 24, 2024 Team Status: Active Member Role Status Dates [facility] Provider Activ e Start: December 10, 2023 Nigel Rdz MD Attending Provider Active Start: December 10, 2023 Team Status: Inactive Member Role Status Dates Eneida Ratliff MD Emergency Provider Active Start: December 10, 2023 End: December 11, 2023 [facility] Activ e Start: December 10, 2023 End: December 11, 2023 Ramón Mcgarry MD Admit Provider Active Start: December 10, 2023 End: December 11, 2023 Jose Carlos Lindquist MD Other Provider Active Start: December 10, 2023 End: December 11, 2023 Alix Neff MD Attending Provider Active S tart: December 10, 2023 End: December 11, 2023 Team Status: Active Member Role Status Dates Eneida Ratliff MD Emergency Provider Active Start: December 10, 2023 End: December 11, 2023 [facility] Provider Activ e Start: December 10, 2023 End: December 11, 2023 Ramón Mcgarry MD Admit Provider, Atte nding Provider, Other Provider Active Start: December 10, 2023 End: December 11, 2023 Team Status: Inactive Member Role Status Dates [facility] Provider Activ e Start: December 11, 2023 End: December 15, 2023 Nigel Rdz MD Admit Provide r, Attending Provider Active Start: December 11, 2023 End: December 15, 2023 Team Status: Active Member Role Status Dates [facility] Provider Activ e Start: December 13, 2023 End: December 15, 2023 Nigel Rdz MD Admit Provide r, Attending Provider, Other Provider Active Start: December 13, 2023 End: December 15, 2023 Team Status: Inactive Member Role Status Dates Wiley Haynes DO Emergency Provider Active [facility] Provider Activ e Film Writer Relationship Specialty Start Date End Date Mannie Daniels DO PCP - General Family Practice 08/03/13 Team Status: Inactive Member Role Status Dates [facility] Provider Activ e Sharee Joy P[employer] REPA[employer] TECHNICIAN-C Attending Provider Tania merida Team Status: Active Member Role Status Dates Gt Galindo MD Emergency Provider Active [facility] Provider Activ e Dharmesh Linda MD Admit Provider, Attending Provider A ctlynette Crespo MD Other Provider Active Team Status: Inactive Member Role Status Dates Gt Galindo MD Emergency Provider Active [facility] Provider Activ e Dharmesh Linda MD Admit Provider Active Ji Crespo MD Other Provider Active Ramón Mcgarry MD Attending Provider Active Film Writer Relationship Specialty Start Date End Date Mannie Daniels DO PCP - General Family Medicine 08/03/13 Team Status: Inactive Member Role Status Dates [facility] Provider Activ e Yevgeniy Gill DO Emergency Provider Active Team Status: Inactive Member Role Status Dates [facility] Provider Activ e James Leach PA-C Emergency Provider Active Team Status: Inactive Member Role Status Dates [facility] Provider Activ e Darrel Lucero APRN Emergency Provider Active Team Status: Inactive Member Role Status Dates Ambrocio Lara , Emergency Provider Active [facility] Provider Activ e Team Status: Inactive Member Role Status Dates [facility] Provider Activ e James Leach PA-C Emergency Provider Active Yunior Singh MD Admit Provider, Attending Provider Active Manuel Gage MD Other Provider Active Team Status: Inactive Member Role Status Dates [facility] Provider Activ e Ramon Arzate MD Emergency Provider Active Film Writer Relationship Specialty Start Date End Date Mannie Daniels DO PCP - General Family Medicine 08/03/13 Lana Simmons CNP [address] [place] [id number] Family Medicine 04/08/23 Team Status: Inactive Member Role Status Dates [facility] Provider Activ e Ambrocio Lara DO Emergency Provider Active Team Status: Inactive Member Role Status Dates [facility] Provider Activ e Start: September 27, 2023 End: September 27, 2023 Davonte Mendez DO Emergency Provider Active Start: September 27, 2023 End: September 27, 2023 Team Status: Active Member Role Status Dates Eneida Ratliff MD Emergency Provider Active Start: December 10, 2023 [facility] Activ e Start: December 10, 2023 Ramón Mcgarry MD Admit Provider, Atte nding Provider Active Start: December 10, 2023 Team Status: Active Member Role Status Dates Eneida Ratliff MD Emergency Provider Active Start: December 10, 2023 [facility] Activ e Start: December 10, 2023 Ramón Mcgarry MD Admit Provider, Atte nding Provider, Other Provider Active Start: December 10, 2023 Team Status: Active Member Role Status Dates [facility] Provider Activ e Start: December 13, 2023 Nigel Rdz MD Admit Provide r, Attending Provider, Other Provider Active Start: December 13, 2023 Team Status: Active Member Role Status Dates [facility] Provider Activ e Start: January 05, 2024 Wiley Haynes DO Emergency Provider Active St art: January 05, 2024 Hayder George DO Admit Provider, Atte nding Provider Active Start: January 05, 2024 Team Status: Inactive Member Role Status Dates [facility] Provider Activ e Start: March 24, 2024 End: March 27, 2024 Jaclyn Gudino Jr, MD Emergency Provider Active Start: March 24, 2024 End: March 27, 2024 Nigel Rdz MD Admit Provide r, Attending Provider Active Start: March 24, 2024 End: March 27, 2024 Sanaz Cristina RN Other Provider Active Star t: March 24, 2024 End: March 27, 2024 Henna Montero , MAURICIO Other Provider Active Start : March 24, 2024 End: March 27, 2024 Stacie Ruelas , MAURICIO Other Provider Active Star t: March 24, 2024 End: March 27, 2024 Debbie Coronel RN Other Provider Active Start: Lory caldera 2023 End: March 27, 2024 Maeve Buckley RN Other Provider Active Start: Nena baker 2023 End: March 27, 2024 Shorty Gray MD Other Provider Active Start: March 24, 2024 End: March 27, 2024 Henny Grady DO Other Provider Active Start : March 24, 2024 End: March 27, 2024 Bismark Díaz MD Other Provider Active Start : March 24, 2024 End: March 27, 2024 Andres Fitzpatrick DO Other Provider Active Start: March 24, 2024 End: March 27, 2024 Ramón Mcgarry MD Other Provider Active Start: March 24, 2024 End: March 27, 2024 Alix Neff MD Other Provider Active Start : March 24, 2024 End: March 27, 2024 Thierry Peoples MD Other Provider Active Start: J werner 2023 End: March 27, 2024 Carolina Soriano APRN Other Provider Active Start: March 24, 2024 End: March 27, 2024 Liam Rodriguez MD Other Provider Active Start: March 24, 2024 End: March 27, 2024 Gino Santos MD Other Provider Active Start: Lory werner 2023 End: March 27, 2024 Yunior Singh MD Other Provider Active Start: March 24, 2024 End: March 27, 2024 Luba Richards MD Other Provider Active Start: March 24, 2024 End: March 27, 2024 Gt Martinez DO Other Provider Active Start: March 24, 2024 End: March 27, 2024 Alec Boogie MD Other Provider Active Start: Ju ly 2023 End: March 27, 2024 Saul Colby MD Other Provider Active Start: Feb End: March 27, 2024 Loulou Cano NP-Harish Other Provider Active St art: March 24, 2024 End: March 27, 2024 Duncan Swain APRN Other Provider Active Star t: March 24, 2024 End: March 27, 2024 Ru Aly MD Other Provider Active Start: March 24, 2024 End: March 27, 2024 Issac Hull MD Other Provider Active Start: Ju ly 2023 End: March 27, 2024 Lei Ch MD Other Provider Active Start: Feb End: March 27, 2024 Ayah Constantino MD Other Provider Active Star t: March 24, 2024 End: March 27, 2024 Dharmesh Linda MD Other Provider Active Start: Lory werner 2023 End: March 27, 2024 Sienna Matt , Other Provider Active Start: Nena ly 2023 End: March 27, 2024 Vito Rey , Other Provider Active Start : March 24, 2024 End: March 27, 2024 Nelda Mata APRN Other Provider Active Start: March 24, 2024 End: March 27, 2024 Hayder George , Other Provider Active Start: March 24, 2024 End: March 27, 2024 Rory Corley MD Other Provider Active Sta rt: March 24, 2024 End: March 27, 2024 Amada Arzate APRN Other Provider Active Start : March 24, 2024 End: March 27, 2024 Bailey Hinton APRN Other Provider Active St art: March 24, 2024 End: March 27, 2024 Mulu Mercado MD Other Provider Active Start: Lory 2023 End: March 27, 2024 Rios Lara MD Other Provider Active S tart: March 24, 2024 End: March 27, 2024 Miller Healy , Other Provider Active Star t: March 24, 2024 End: March 27, 2024 Jairo Carter DO Other Provider Active Start: March 24, 2024 End: March 27, 2024 Tono Ch MD Other Provider Active Start: March 24, 2024 End: March 27, 2024 Freddy Linares MD Other Provider Active Start: March 24 End: March 27, 2024 Brit Shannon APRN Other Provider Active Star t: March 24, 2024 End: March 27, 2024 Katy Garland MD Other Provider Active Start: Lory werner 2023 End: March 27, 2024 Denny Cook MD Other Provider Active Start: Nena baker 2023 End: March 27, 2024 Ariela Loazno RN Other Provider Active Start: Lory werner 2023 End: March 27, 2024 Team Status: Active Member Role Status Dates [facility] Provider Activ e Start: March 25, 2024 Jaclyn Gudino Jr, MD Emergency Provider Active Start: March 25, 2024 Nigel Rdz MD Admit Provide r, Attending Provider, Other Provider Active Start: March 25, 2024 Sanaz Cristina , RN Other Provider Active Star t: March 25, 2024 Henna Montero , MAURICIO Other Provider Active Start : March 25, 2024 Stacie Ruelas , MAURICIO Other Provider Active Star t: March 25, 2024 Debbie Coronel , MAURICIO Other Provider Active Start: A ugust 2023 Maeve Buckley RN Other Provider Active Start: Au cristel 2023 Shorty Gray MD Other Provider Active Start: March 25, 2024 Henny Grady DO Other Provider Active Start : March 25, 2024 Bismark Díaz MD Other Provider Active Start : March 25, 2024 Andres Fitzpatrick DO Other Provider Active Start: March 25, 2024 Ramón Mcgarry MD Other Provider Active Start: March 25, 2024 Alix Neff MD Other Provider Active Start : March 25, 2024 Thierry Peoples MD Other Provider Active Start: A ugust 2023 Carolina Soriano APRN Other Provider Active Start: March 25, 2024 Liam Rodriguez MD Other Provider Active Start: March 25, 2024 Gino Santos MD Other Provider Active Start: A ugust 2023 Yunior Singh MD Other Provider Active Start: March 25, 2024 Luba Richards MD Other Provider Active Start: March 25, 2024 Gt Martinez DO Other Provider Active Start: March 25, 2024 Alec Boogie MD Other Provider Active Start: cristel 2023 Saul Colby MD Other Provider Active Start: Mar DANIELA Travis Other Provider Active St art: March 25, 2024 Duncan Swain APRN Other Provider Active Star t: March 25, 2024 Ru Aly MD Other Provider Active Start: March 25, 2024 Issac Hull MD Other Provider Active Start: Au cristel 2023 Lei Ch MD Other Provider Active Start: Mar Ayah Constantino MD Other Provider Active Star t: March 25, 2024 Dharmesh Linda MD Other Provider Active Start: A ugust 2023 Sienna Matt DO Other Provider Active Start: 2023 Vito Rey , Other Provider Active Start : March 25, 2024 Nelda Mata APRN Other Provider Active Start: March 25, 2024 Hayder George DO Other Provider Active Start: March 25, 2024 Rory Corley MD Other Provider Active Sta rt: March 25, 2024 Amada Arzate APRN Other Provider Active Start : March 25, 2024 Bailey Hinton APRN Other Provider Active St art: March 25, 2024 Mulu Mercado MD Other Provider Active Start: A 2023 Rios Lara MD Other Provider Active S tart: March 25, 2024 Miller Healy DO Other Provider Active Star t: March 25, 2024 Jairo Carter DO Other Provider Active Start: March 25, 2024 Tono Ch MD Other Provider Active Start: March 25, 2024 Freddy Linares MD Other Provider Active Start: March 25 Brit Shannon APRN Other Provider Active Star t: March 25, 2024 Katy Garland MD Other Provider Active Start: A 2023 Denny Cook MD Other Provider Active Start: cristel 2023 Ariela Lozano RN Other Provider Active Start: A ugust 2023 Team Status: Inactive Member Role Status Dates [facility] Provider Activ e Start: March 27, 2024 End: March 29, 2024 Rory Corley MD Admit Provider, A ttending Provider Active Start: March 27, 2024 End: March 29, 2024 Marlin Angel Other Provider Active Start: March 27, 2024 End: March 29, 2024 Vinod Worley , PhD Other Provider Active S tart: March 27, 2024 End: March 29, 2024 Annemarie Benton DO Other Provider Active Start: March 27, 2024 End: March 29, 2024 Robert Akers MD Other Provider Active Start : March 27, 2024 End: March 29, 2024 Remigio White DO Other Provider Active Start: March 27, 2024 End: March 29, 2024 Jose Jon DO Other Provider Active Start: March 27, 2024 End: March 29, 2024 Brit Duvall APRN Other Provider Active St art: March 27, 2024 End: March 29, 2024 DANIELA Wilson Other Provider Active Sta rt: March 27, 2024 End: March 29, 2024 Ju Han , 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 [employer] Other Provider Active Start: March 27, 2024 End: March 29, 2024 Nigel Rdz MD Other Provider Active Start: March 27, 2024 End: March 29, 2024 Team Status: Active Member Role Status Dates [facility] Provider Activ e Start: March 28, 2024 Rory Corley MD Admit Provider, O ther Provider Active Start: March 28, 2024 Marlin Angel Other Provider Active Start: March 28, 2024 Vinod Worley , PhD Other Provider Active S tart: March 28, 2024 Annemarie Benton DO Other Provider Active Start: March 28, 2024 Robert Akers MD Other Provider Active Start : March 28, 2024 Remigio White DO Other Provider Active Start: March 28, 2024 Jose Jon DO Other Provider Active Start: March 28, 2024 Brit Duvall APRN Other Provider Active St art: March 28, 2024 DANIELA Wilson Other Provider Active Sta rt: March 28, 2024 Ju Han , 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 [employer] Other Provider Active Start: March 28, 2024 Nigel Rdz MD Attending Pro vider, Other Provider Active Start: March 28, 2024 Team Status: Active Member Role Status Dates Eneida Ratliff MD Emergency Provider Active Start: March 31, 2024 [facility] Provider Activ e Start: March 31, 2024 Jose Carlos Lindquist MD Admit Provider, Atte nding Provider Active Start: March 31, 2024 Team Status: Inactive Member Role Status Dates Eneida Ratliff MD Emergency Provider Active Start: March 31, 2024 End: April 09, 2024 [facility] Provider Activ e Start: March 31, 2024 End: April 09, 2024 Jose Carlos Lindquist MD Admit Provider, Atte nding Provider Active Start: March 31, 2024 End: April 09, 2024 Team Status: Active Member Role Status Dates Eneida Ratliff MD Emergency Provider Active Start: April 01, 2024 [facility] Provider Activ e Start: April 01, 2024 Jose Carlos Lindquits MD Admit Provider, Atte nding Provider, Other Provider Active Start: April 01, 2024 Film Writer Relationship Specialty Start Date End Date Mannie Daniels DO PCP - General Family Medicine 08/03/13 Lana Simmons CNP [address] [place] [id number] Family Medicine 04/08/23 Goals (unrecognized section and content) Goals may be documented in a n alternate section FOR RECORDS PERTAINING TO PATIENTS WHO ARE OR HAVE BEEN ENROLLED IN A CHEMICAL DEPENDENCY/SUBSTANCEABUSE PROGRAM, SOME INFORMATION MAY BE OMITTED. This clinical summary was aggregated from multiple sources. Caution should be exercised in using it in the provision of clinical care. This summary normalizes information from multiple sources, and as a consequence, information in this document may materially change the coding, format and clinical context of patient data. In addition, data may be omitted in some cases. CLINICAL DECISIONS SHOULD BE BASED ON THE PRIMARY CLINICAL RECORDS. [employer] provides no warranty or guarantee of the accuracy or completeness of information in this document.
[2024-06-24] MEDS: MAGNESIUM SULFATE IN WATER 2 GM/50 ML PREMIX IV (04:51)
== END 2024-06-24 10:35 | disposition home or self-care (01) ==
PROVIDERS: Emergency Provider Internal Medicine; PCP Family Medicine
DX: E83.42 Hypomagnesemia (principal); E11.9 Type 2 diabetes mellitus without complications; Z79.4 Long term (current) use of insulin; Z79.84 Long term (current) use of oral hypoglycemic drugs; Z87.891 Personal history of nicotine dependence
CPT/HCPCS: 36415; 71045; 80053; 81003; 83735; 85025; 96365; 99284; J3475

== ENCOUNTER 2024-12-01 18:42 | Emergency (ER) | payer MEDICARE, MEDICAID, SELFPAY ==
[2024-12-01 18:46] VITALS: BP 107/73; PULSE 82; PULSE 84; TEMP 36.4; O2SAT 96; BMI 40.7
[2024-12-01 18:47] VITALS: BP 107/73; PULSE 81; O2SAT 96
--- NOTE | 2024-12-01 18:48 | ECG_ITS ---
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 Measurements Intervals [place] Rate: 85 P: 38 GA: 170 QRS: -24 QRSD: 88 T: 67 QT: 370 QTc: 412 Interpretive Statements 1100 Sinus rhythm 3114 Cannot rule out anterior myocardial infarction, age undetermined 8102 Low QRS voltage in chest leads 9150 abnormal ECG Compared to ECG 06/19/2024 18:06:04 Myocardial infarct finding now present Low QRS voltage now present Electronically Signed On 12-02-2024 8:08:05 EDT by SHAWNA SHEPARD M.D.
--- NOTE | 2024-12-01 18:50 | ED_ITS ---
Documented by User: MJ Altman 12/01/24 21:56 HPI - Altered Mental Status General Chief Complaint: Altered Mental Status Stated Complaint: other Time Seen by Provider: 12/01/24 18:45 Source: patient Mode of arrival: ambulance Limitations: altered mental status History of Present Illness HPI narrative: Patient is a 64-year-old male to the emergency department from assisted living where he is a resident for evaluation of dizziness and decreased responsiveness that was present just prior to arrival. Patient was complaining of feeling dizzy and having abdominal pain which the patient now states has been present for the last several days associated with vomiting and diarrhea. EMS stated that the patient was not responsive on their arrival although became alert and oriented. On arrival to the emergency department, patient is sitting upright, talkative and in no distress. He is alert and oriented to person, place, time and is able to answer all questions. No falls or injuries noted. Related Data Home Medications ?Medication ?Instructions ?Recorded ?Confirmed acetaminophen 500 mg capsule 1,000 mg PO Q6H PRN fever or pain 06/19/24 06/19/24 atorvastatin 80 mg tablet 80 mg PO DAILY 06/19/24 06/19/24 buspirone 5 mg tablet 5 mg PO DAILY 06/19/24 06/19/24 citalopram 40 mg tablet 40 mg PO DAILY 06/19/24 06/19/24 clopidogrel 75 mg tablet 75 mg PO DAILY 06/19/24 06/19/24 donepezil 10 mg tablet 10 mg PO DAILY 06/19/24 06/19/24 dulaglutide 3 mg/0.5 mL 3 mg subcut .WEEKLY 06/19/24 06/19/24 [facility] famotidine 20 mg tablet 20 mg PO DAILY 06/19/24 06/19/24 fluticasone propionate 50 2 spray intranasal DAILY 06/19/24 06/19/24 mcg/actuation nasal spray,suspension furosemide 20 mg tablet 20 mg PO DAILY 06/19/24 06/19/24 gabapentin 600 mg tablet 1,200 mg PO Q8H 06/19/24 06/19/24 insulin aspart U-100 100 unit/mL subcut 06/19/24 (3 mL) subcutaneous pen (Novolog FlexPen U-100 Insulin aspart) metformin 1,000 mg tablet 1,000 mg PO BID 06/19/24 06/19/24 metoprolol tartrate 50 mg tablet 50 mg PO Q12H 06/19/24 06/19/24 pantoprazole 40 mg tablet,delayed 40 mg PO DAILY 06/19/24 06/19/24 release primidone 250 mg tablet 250 mg PO DAILY 06/19/24 06/19/24 quetiapine 25 mg tablet (Seroquel) 75 mg PO DAILY 06/19/24 06/19/24 ropinirole 0.5 mg tablet 0.5 mg PO DAILY 06/19/24 06/19/24 Previous Rx's ?Medication ?Instructions ?Recorded insulin glargine 100 unit/mL (3 15 unit (0.15 mL) subcut BID #0 mL 06/20/24 mL) subcutaneous pen (Lantus Solostar U-100 Insulin) Allergies Allergy/AdvReac Type Severity Reaction Status Date / Time codeine Allergy Severe Anaphylaxis Verified 06/19/24 18:09 Latex, Natural Rubber Allergy Severe Rash Verified 06/19/24 18:09 Review of Systems ROS Constitutional Denies: fever or chills Ears, nose, mouth, and throat Denies: throat pain or nasal congestion Cardiovascular Denies: chest pain Respiratory Denies: shortness of breath Gastrointestinal Reports: abdominal pain, nausea, vomiting and diarrhea Genitourinary Denies: painful urination Musculoskeletal Denies: back pain or neck pain Integumentary/Breast Denies: rash Neurological Reports: dizziness; Denies: numbness in extremities or weakness in extremities Hematologic/Lymphatic Denies: easy bruising or easy bleeding [facility] Medical History (Updated 12/01/24 @ 23:11 by Vivien Davison MD) Schizo affective schizophrenia ?F25.9 - Schizoaffective disorder, unspecified (ICD-10) Generalized muscle weakness ?M62.81 - Muscle weakness (generalized) (ICD-10) Myocardial infarct ?I21.9 - Acute myocardial infarction, unspecified (ICD-10) Restless leg syndrome ?G25.81 - Restless legs syndrome (ICD-10) Anxiety disorder ?F41.9 - Anxiety disorder, unspecified (ICD-10) Nicotine dependence ?F17.200 - Nicotine dependence, unspecified, uncomplicated (ICD-10) Hyperlipidemia ?E78.5 - Hyperlipidemia, unspecified (ICD-10) COVID-19 ?U07.1 - COVID-19 (ICD-10) Suicidal ideations ?R45.851 - Suicidal ideations (ICD-10) Diabetes ?E11.9 - Type 2 diabetes mellitus without complications (ICD-10) Dementia ?F03.90 - Unspecified dementia, unspecified severity, without behavioral disturbance, psychotic disturbance, mood disturbance, and anxiety (ICD-10) Depressive disorder ?F32.A - Depression, unspecified (ICD-10) Social History Smoking status: Former smoker Highest level of school completed/degree received: high school graduate Little interest or pleasure in doing things: not at all Feeling down, depressed, or hopeless: not at all Exam Narrative Exam Narrative: Gen.: Awake, alert, in no distress Head: Normocephalic, atraumatic ENT: Moist mucous membranes Respiratory: No respiratory distress, lungs clear bilaterally Cardio: Regular rate and rhythm Gastrointestinal: Abdomen is soft, nondistended and nontender to palpation Extremities: Moves extremities equally, no injuries noted Psych: Normal mood and affect Neuro: No focal neuro deficit Skin: Warm, dry, intact Constitutional Vital Signs, click to edit/add: Last Vital Signs Temp 97.6 F 12/01/24 18:46 Pulse 81 12/01/24 18:47 Resp 20 12/01/24 18:47 BP 107/73 12/01/24 18:47 Pulse Ox 96 12/01/24 18:47 O2 Del Method Room Air 12/01/24 18:46 Course Vital Signs Vital signs: Vital Signs Temperature 97.6 F 12/01/24 18:46 Pulse Rate 84 12/01/24 18:46 Respiratory Rate 18 12/01/24 18:46 Blood Pressure 107/73 12/01/24 18:46 Pulse Oximetry 96 12/01/24 18:46 Oxygen Delivery Method Room Air 12/01/24 18:46 Temperature 97.6 F 12/01/24 18:46 Pulse Rate 81 12/01/24 18:47 Respiratory Rate 20 12/01/24 18:47 Blood Pressure 107/73 12/01/24 18:47 Pulse Oximetry 96 12/01/24 18:47 Oxygen Delivery Method Room Air 12/01/24 18:46 MDM - Altered Mental Status MDM Narrative Medical decision making narrative: 2154: Patient was medicated for pain and given IV fluids. Labs show he has mild hyponatremia and elevated lipase. EKG, chest x-ray and troponin are within normal limits. CT of the brain and CT of the abdomen and pelvis are pending at this time. Case is turned over to attending physician for disposition. SHARED APC VISIT, PHYSICIAN ATTESTATION: [id number] I performed a substantive part of the MDM during the patient?s E/M visit. I personally evaluated and examined the patient. I personally made or approved the documented management plan and acknowledge its risk of complications. Medical Records Attestation: I reviewed the patient's medical records. Lab Data Attestation: I reviewed the patient's lab results. Labs: Lab Results 12/01/24 12/01/24 Range/Units 19:37 20:05 WBC 6.9 (4.0-11.0) 10^3/uL RBC 5.19 (4.70-6.10) 10^6/uL Hgb 14.5 (14.0-18.0) g/dL Hct 42.2 (42.0-54.0) % MCV 81.3 (80.0-94.0) fL MCH 27.9 (25.9-34.0) pg MCHC 34.4 (29.9-35.2) g/dL RDW 13.2 (11.0-15.0) % Plt Count 200 (150-450) 10^3/uL MPV 10.5 (9.5-13.5) fL Neut % (Auto) 69.9 (43.0-75.0) % Lymph % (Auto) 17.6 L (20.5-60.0) % [place] % (Auto) 9.4 (1.7-12.0) % Eos % (Auto) 2.4 (0.9-7.0) % Baso % (Auto) 0.4 (0.2-2.0) % Neut # (Auto) 4.9 (1.4-6.5) 10^3/uL Lymph # (Auto) 1.2 (1.2-3.8) 10^3/uL [place] # (Auto) 0.7 (0.3-0.8) 10^3/uL Eos # (Auto) 0.2 (0.0-0.7) 10^3/uL Baso # (Auto) 0.0 (0.0-0.1) 10^3/uL Abs Immat Gran (auto) 0.02 (0.00-0.03) 10^3/uL Imm/Tot Granulo (auto) 0.3 (0.0-0.5) % PT 10.4 (9.0-11.6) sec INR 0.98 Sodium 131 L (136-145) mmol/L Potassium 4.7 (3.5-5.1) mmol/L Chloride 97 L (98-107) mmol/L Carbon Dioxide 29.9 (21.0-32.0) mmol/L Anion Gap 8.8 BUN 23.0 H (7.0-18.0) mg/dL Creatinine 1.14 (0.70-1.30) mg/dL Est GFR ( Amer) >60 (>=60 mL/min/1.73m^2) Est GFR (Non-Af Amer) >60 (>=60 mL/min/1.73m^2) BUN/Creatinine Ratio 20.2 Glucose 234 H (74-106) mg/dL Lactate 2.0 (0.4-2.0) mmol/L Calcium 8.8 (8.5-10.1) mg/dL Magnesium 1.7 L (1.8-2.4) mg/dL Total Bilirubin 0.3 (0.2-1.0) mg/dL AST 27 (15-37) U/L ALT 57 (16-63) U/L Alkaline Phosphatase 118 H (46-116) U/L Troponin I High Sens <4.0 L (4.0-76.1) pg/mL Total Protein 6.9 (6.4-8.2) g/dL Albumin 3.3 L (3.4-5.0) g/dL Globulin 3.6 g/dL Albumin/Globulin Ratio 0.9 Lipase 375.0 H (16.0-77.0) U/L TSH 0.963 (0.358-3.740) uIU/mL Urine Color Lt. yellow (YELLOW) Urine Clarity Clear (CLEAR) Urine pH 6.0 (5.0-9.0) Ur Specific [place] 1.015 (1.005-1.025) Urine Protein Negative (NEG/TRACE) mg/dL Urine Glucose (UA) 100 A (NEGATIVE) mg/dL Urine Ketones Negative (NEGATIVE) mg/dL Urine Occult Blood Negative (NEGATIVE) Urine Nitrite Negative (NEGATIVE) Urine Bilirubin Negative (NEGATIVE) Urine Urobilinogen 0.2 (0.2-1.0) EU/dL Ur Leukocyte Esterase Negative (NEGATIVE) Urine RBC 0-2 (0-2) #/HPF Urine WBC 0-2 A (NONE SEEN) #/HPF Ur Squamous Epith Cells None seen (NONE/RARE) #/LPF Urine Crystals None seen (None Seen) #/HPF Urine Bacteria Trace A (NONE SEEN) #/HPF Urine Casts None seen (NONE SEEN) #/LPF Urine Mucus None seen (NONE SEEN) Ur Culture Indicated? No Imaging Data Chest x-ray: Attestation: I have reviewed the pertinent imaging results. ECG Data Attestation: I personally reviewed and interpreted this ECG as follows: (Normal sinus rhythm at a rate of 85, no acute ST elevation or ectopy. EKG reviewed by attending physician) Discharge Plan Discharge Chief Complaint: Altered Mental Status Clinical Impression: Dizziness, Abdominal pain, Diarrhea Patient Disposition: Home, Self-Care Time of Disposition Decision: 23:11 Condition: Good Prescriptions / Home Meds: No Action buspirone 5 mg tablet 5 mg PO DAILY atorvastatin 80 mg tablet 80 mg PO DAILY gabapentin 600 mg tablet 1,200 mg PO Q8H Rx Instructions: Give 2 600mg Tablets citalopram 40 mg tablet 40 mg PO DAILY donepezil 10 mg tablet 10 mg PO DAILY clopidogrel 75 mg tablet 75 mg PO DAILY famotidine 20 mg tablet 20 mg PO DAILY primidone 250 mg tablet 250 mg PO DAILY pantoprazole 40 mg tablet,delayed release (DR/EC) 40 mg PO DAILY metformin 1,000 mg tablet 1,000 mg PO BID ropinirole 0.5 mg tablet 0.5 mg PO DAILY metoprolol tartrate 50 mg tablet 50 mg PO Q12H furosemide 20 mg tablet 20 mg PO DAILY fluticasone propionate 50 mcg/actuation spray,suspension 2 spray INTRANASAL DAILY insulin aspart U-100 [Novolog FlexPen U-100 Insulin] 100 unit/mL (3 mL) insulin pen SUBCUT Trulicity 3 mg/0.5 mL pen injector 3 mg SUBCUT .WEEKLY quetiapine [Seroquel] 25 mg tablet 75 mg PO DAILY acetaminophen 500 mg capsule 1,000 mg PO Q6H PRN (Reason: fever or pain) insulin glargine [Lantus Solostar U-100 Insulin] 100 unit/mL (3 mL) insulin pen 15 unit SUBCUT BID Qty: 0 0RF Print Language: Bulgarian Instructions: Acute Diarrhea (ED), Abdominal Pain (ED), Dizziness (ED) Referrals: EDWIN LAYNE [Primary Care Provider] - 1 week Documented by User: Vivien Davison MD 12/01/24 23:12 HPI - Altered Mental Status General Chief Complaint: Altered Mental Status Stated Complaint: other Time Seen by Provider: 12/01/24 18:45 Related Data Home Medications ?Medication ?Instructions ?Recorded ?Confirmed acetaminophen 500 mg capsule 1,000 mg PO Q6H PRN fever or pain 06/19/24 06/19/24 atorvastatin 80 mg tablet 80 mg PO DAILY 06/19/24 06/19/24 buspirone 5 mg tablet 5 mg PO DAILY 06/19/24 06/19/24 citalopram 40 mg tablet 40 mg PO DAILY 06/19/24 06/19/24 clopidogrel 75 mg tablet 75 mg PO DAILY 06/19/24 06/19/24 donepezil 10 mg tablet 10 mg PO DAILY 06/19/24 06/19/24 dulaglutide 3 mg/0.5 mL 3 mg subcut .WEEKLY 06/19/24 06/19/24 subcutaneous pen injector (Trulicity) famotidine 20 mg tablet 20 mg PO DAILY 06/19/24 06/19/24 fluticasone propionate 50 2 spray intranasal DAILY 06/19/24 06/19/24 mcg/actuation nasal spray,suspension furosemide 20 mg tablet 20 mg PO DAILY 06/19/24 06/19/24 gabapentin 600 mg tablet 1,200 mg PO Q8H 06/19/24 06/19/24 insulin aspart U-100 100 unit/mL subcut 06/19/24 (3 mL) subcutaneous pen (Novolog FlexPen U-100 Insulin aspart) metformin 1,000 mg tablet 1,000 mg PO BID 06/19/24 06/19/24 metoprolol tartrate 50 mg tablet 50 mg PO Q12H 06/19/24 06/19/24 pantoprazole 40 mg tablet,delayed 40 mg PO DAILY 06/19/24 06/19/24 release primidone 250 mg tablet 250 mg PO DAILY 06/19/24 06/19/24 quetiapine 25 mg tablet (Seroquel) 75 mg PO DAILY 06/19/24 06/19/24 ropinirole 0.5 mg tablet 0.5 mg PO DAILY 06/19/24 06/19/24 Previous Rx's ?Medication ?Instructions ?Recorded insulin glargine 100 unit/mL (3 15 unit (0.15 mL) subcut BID #0 mL 06/20/24 mL) subcutaneous pen (Lantus Solostar U-100 Insulin) Allergies Allergy/AdvReac Type Severity Reaction Status Date / Time codeine Allergy Severe Anaphylaxis Verified 06/19/24 18:09 Latex, Natural Rubber Allergy Severe Rash Verified 06/19/24 18:09 [facility] Medical History (Updated 12/01/24 @ 23:11 by Vivien Davison MD) Schizo affective schizophrenia ?F25.9 - Schizoaffective disorder, unspecified (ICD-10) Generalized muscle weakness ?M62.81 - Muscle weakness (generalized) (ICD-10) Myocardial infarct ?I21.9 - Acute myocardial infarction, unspecified (ICD-10) Restless leg syndrome ?G25.81 - Restless legs syndrome (ICD-10) Anxiety disorder ?F41.9 - Anxiety disorder, unspecified (ICD-10) Nicotine dependence ?F17.200 - Nicotine dependence, unspecified, uncomplicated (ICD-10) Hyperlipidemia ?E78.5 - Hyperlipidemia, unspecified (ICD-10) COVID-19 ?U07.1 - COVID-19 (ICD-10) Suicidal ideations ?R45.851 - Suicidal ideations (ICD-10) Diabetes ?E11.9 - Type 2 diabetes mellitus without complications (ICD-10) Dementia ?F03.90 - Unspecified dementia, unspecified severity, without behavioral disturbance, psychotic disturbance, mood disturbance, and anxiety (ICD-10) Depressive disorder ?F32.A - Depression, unspecified (ICD-10) Social History Smoking status: Former smoker Highest level of school completed/degree received: high school graduate Little interest or pleasure in doing things: not at all Feeling down, depressed, or hopeless: not at all Exam Constitutional Vital Signs, click to edit/add: Last Vital Signs Temp 97.6 F 12/01/24 18:46 Pulse 81 12/01/24 18:47 Resp 20 12/01/24 18:47 BP 107/73 12/01/24 18:47 Pulse Ox 96 12/01/24 18:47 O2 Del Method Room Air 12/01/24 18:46 Course Vital Signs Vital signs: Vital Signs Temperature 97.6 F 12/01/24 18:46 Pulse Rate 84 12/01/24 18:46 Respiratory Rate 18 12/01/24 18:46 Blood Pressure 107/73 12/01/24 18:46 Pulse Oximetry 96 12/01/24 18:46 Oxygen Delivery Method Room Air 12/01/24 18:46 Temperature 97.6 F 12/01/24 18:46 Pulse Rate 81 12/01/24 18:47 Respiratory Rate 20 12/01/24 18:47 Blood Pressure 107/73 12/01/24 18:47 Pulse Oximetry 96 12/01/24 18:47 Oxygen Delivery Method Room Air 12/01/24 18:46 MDM - Altered Mental Status MDM Narrative Medical decision making narrative: 2153: Patient was medicated for pain and given IV fluids. Labs show he has mild hyponatremia and elevated lipase. EKG, chest x-ray and troponin are within normal limits. CT of the brain and CT of the abdomen and pelvis are pending at this time. Case is turned over to attending physician for disposition. SHARED APC VISIT, PHYSICIAN ATTESTATION: [id number] I performed a substantive part of the MDM during the patient?s E/M visit. I personally evaluated and examined the patient. I personally made or approved the documented management plan and acknowledge its risk of complications. This patient was seen and evaluated in conjunction with the physician neurology physician assistant. Please refer to her full H&P. He presents with nausea vomiting and a brief episode of unresponsiveness. CT scan of the brain is normal. CT scan of the abdomen pelvis shows nonspecific soft tissue attenuation within the subcutaneous fat of the right upper quadrant. I do not see any sign of any infection in this area. The patient is feeling better at this time and requesting a diet Coke. I reviewed his labs and reevaluated him. He feels comfortable being discharged home at this time. His lipase is elevated but the CT scan specifies that the pancreas adrenal glands and kidneys are within normal limits. Lab Data Labs: Lab Results 12/01/24 12/01/24 Range/Units 19:37 20:05 WBC 6.9 (4.0-11.0) 10^3/uL RBC 5.19 (4.70-6.10) 10^6/uL Hgb 14.5 (14.0-18.0) g/dL Hct 42.2 (42.0-54.0) % MCV 81.3 (80.0-94.0) fL MCH 27.9 (25.9-34.0) pg MCHC 34.4 (29.9-35.2) g/dL RDW 13.2 (11.0-15.0) % Plt Count 200 (150-450) 10^3/uL MPV 10.5 (9.5-13.5) fL Neut % (Auto) 69.9 (43.0-75.0) % Lymph % (Auto) 17.6 L (20.5-60.0) % [place] % (Auto) 9.4 (1.7-12.0) % Eos % (Auto) 2.4 (0.9-7.0) % Baso % (Auto) 0.4 (0.2-2.0) % Neut # (Auto) 4.9 (1.4-6.5) 10^3/uL Lymph # (Auto) 1.2 (1.2-3.8) 10^3/uL [place] # (Auto) 0.7 (0.3-0.8) 10^3/uL Eos # (Auto) 0.2 (0.0-0.7) 10^3/uL Baso # (Auto) 0.0 (0.0-0.1) 10^3/uL Abs Immat Gran (auto) 0.02 (0.00-0.03) 10^3/uL Imm/Tot Granulo (auto) 0.3 (0.0-0.5) % PT 10.4 (9.0-11.6) sec INR 0.98 Sodium 131 L (136-145) mmol/L Potassium 4.7 (3.5-5.1) mmol/L Chloride 97 L (98-107) mmol/L Carbon Dioxide 29.9 (21.0-32.0) mmol/L Anion Gap 8.8 BUN 23.0 H (7.0-18.0) mg/dL Creatinine 1.14 (0.70-1.30) mg/dL Est GFR ( Amer) >60 (>=60 mL/min/1.73m^2) Est GFR (Non-Af Amer) >60 (>=60 mL/min/1.73m^2) BUN/Creatinine Ratio 20.2 Glucose 234 H (74-106) mg/dL Lactate 2.0 (0.4-2.0) mmol/L Calcium 8.8 (8.5-10.1) mg/dL Magnesium 1.7 L (1.8-2.4) mg/dL Total Bilirubin 0.3 (0.2-1.0) mg/dL AST 27 (15-37) U/L ALT 57 (16-63) U/L Alkaline Phosphatase 118 H (46-116) U/L Troponin I High Sens <4.0 L (4.0-76.1) pg/mL Total Protein 6.9 (6.4-8.2) g/dL Albumin 3.3 L (3.4-5.0) g/dL Globulin 3.6 g/dL Albumin/Globulin Ratio 0.9 Lipase 375.0 H (16.0-77.0) U/L TSH 0.963 (0.358-3.740) uIU/mL Urine Color Lt. yellow (YELLOW) Urine Clarity Clear (CLEAR) Urine pH 6.0 (5.0-9.0) Ur Specific [place] 1.015 (1.005-1.025) Urine Protein Negative (NEG/TRACE) mg/dL Urine Glucose (UA) 100 A (NEGATIVE) mg/dL Urine Ketones Negative (NEGATIVE) mg/dL Urine Occult Blood Negative (NEGATIVE) Urine Nitrite Negative (NEGATIVE) Urine Bilirubin Negative (NEGATIVE) Urine Urobilinogen 0.2 (0.2-1.0) EU/dL Ur Leukocyte Esterase Negative (NEGATIVE) Urine RBC 0-2 (0-2) #/HPF Urine WBC 0-2 A (NONE SEEN) #/HPF Ur Squamous Epith Cells None seen (NONE/RARE) #/LPF Urine Crystals None seen (None Seen) #/HPF Urine Bacteria Trace A (NONE SEEN) #/HPF Urine Casts None seen (NONE SEEN) #/LPF Urine Mucus None seen (NONE SEEN) Ur Culture Indicated? No Discharge Plan Discharge Chief Complaint: Altered Mental Status Clinical Impression: Dizziness, Abdominal pain, Diarrhea Patient Disposition: Home, Self-Care Time of Disposition Decision: 23:11 Condition: Good Prescriptions / Home Meds: No Action buspirone 5 mg tablet 5 mg PO DAILY atorvastatin 80 mg tablet 80 mg PO DAILY gabapentin 600 mg tablet 1,200 mg PO Q8H Rx Instructions: Give 2 600mg Tablets citalopram 40 mg tablet 40 mg PO DAILY donepezil 10 mg tablet 10 mg PO DAILY clopidogrel 75 mg tablet 75 mg PO DAILY famotidine 20 mg tablet 20 mg PO DAILY primidone 250 mg tablet 250 mg PO DAILY pantoprazole 40 mg tablet,delayed release (DR/EC) 40 mg PO DAILY metformin 1,000 mg tablet 1,000 mg PO BID ropinirole 0.5 mg tablet 0.5 mg PO DAILY metoprolol tartrate 50 mg tablet 50 mg PO Q12H furosemide 20 mg tablet 20 mg PO DAILY fluticasone propionate 50 mcg/actuation spray,suspension 2 spray INTRANASAL DAILY insulin aspart U-100 [Novolog FlexPen U-100 Insulin] 100 unit/mL (3 mL) insulin pen SUBCUT Trulicity 3 mg/0.5 mL pen injector 3 mg SUBCUT .WEEKLY quetiapine [Seroquel] 25 mg tablet 75 mg PO DAILY acetaminophen 500 mg capsule 1,000 mg PO Q6H PRN (Reason: fever or pain) insulin glargine [Lantus Solostar U-100 Insulin] 100 unit/mL (3 mL) insulin pen 15 unit SUBCUT BID Qty: 0 0RF Print Language: Bulgarian Instructions: Acute Diarrhea (ED), Abdominal Pain (ED), Dizziness (ED) Referrals: EDWIN LAYNE [Primary Care Provider] - 1 week
--- NOTE | 2024-12-01 18:56 | PC.NURSE ---
Per NH staff patient was not responsive, on arrival patient not answering questions, quickly wakes up and answers all questions appropriately.
[2024-12-01] MEDS: ONDANSETRON PF 4 MG/2 ML VIAL IV (19:35)
[2024-12-01] MEDS: FAMOTIDINE/PF 20 MG/2 ML VIAL IV (19:35)
[2024-12-01] MEDS: 0.9 % SODIUM CHLORIDE 1,000 ML 999 ML IV (19:35)
[2024-12-01] MEDS: HYDROMORPHONE HCL 0.5 MG/0.5 ML SYRINGE IV (19:36)
[2024-12-01 19:54] LABS: Basophils Percent Auto 0.4 % (0.2-2.0); Eosinophils Absolute Auto 0.2 10^3/uL (0.0-0.7); Eosinophils Percent Auto 2.4 % (0.9-7.0); Hematocrit 42.2 % (42.0-54.0); Hemoglobin 14.5 g/dL (14.0-18.0); Immature Granulocytes Abs Auto 0.02 10^3/uL (0.00-0.03); Immature Granulocytes Pct Auto 0.3 % (0.0-0.5); Lymphocytes Absolute Auto 1.2 10^3/uL (1.2-3.8); Lymphocytes Percent Auto 17.6 % (20.5-60.0); Mean Corpuscular HGB Conc 34.4 g/dL (29.9-35.2); Mean Corpuscular Hemoglobin 27.9 pg (25.9-34.0); Mean Corpuscular Volume 81.3 fL (80.0-94.0); Mean Platelet Volume 10.5 fL (9.5-13.5); Monocytes Absolute Auto 0.7 10^3/uL (0.3-0.8); Monocytes Percent Auto 9.4 % (1.7-12.0); Neutrophils Absolute Auto 4.9 10^3/uL (1.4-6.5); Neutrophils Percent Auto 69.9 % (43.0-75.0); Platelet Count 200 10^3/uL (150-450); Red Blood Count 5.19 10^6/uL (4.70-6.10); Red Cell Distribution Width 13.2 % (11.0-15.0); White Blood Count 6.9 10^3/uL (4.0-11.0)
[2024-12-01 20:09] LABS: INR 0.98; Prothrombin Time 10.4 sec (9.0-11.6)
[2024-12-01 20:13] LABS: Bilirubin Urine NEGATIVE (NEGATIVE); Blood Urine NEGATIVE (NEGATIVE); Clarity Urine CLEAR (CLEAR); Color Urine LT. YELLOW (YELLOW); Glucose Urine UA 100 mg/dL (NEGATIVE); Ketones Urine NEGATIVE (NEGATIVE); Leukocyte Esterase Urine NEGATIVE (NEGATIVE); Nitrite Urine NEGATIVE (NEGATIVE); Protein Urine NEGATIVE (NEG/TRACE); Specific Gravity Urine 1.015 (1.005-1.025); Urobilinogen Urine 0.2 EU/dL (0.2-1.0)
[2024-12-01 20:14] LABS: Alanine Aminotransferase 57 U/L (16-63); Albumin Globulin Ratio 0.9; Albumin Level 3.3 g/dL (3.4-5.0); Alkaline Phosphatase 118 U/L (46-116); Anion Gap 8.8; Aspartate Amino Transferase 27 U/L (15-37); BUN Creatinine Ratio 20.2; Bilirubin Total 0.3 mg/dL (0.2-1.0); Calcium 8.8 mg/dL (8.5-10.1); Carbon Dioxide 29.9 mmol/L (21.0-32.0); Chloride 97 mmol/L (98-107); Estimated GFR (African America >60 (>=60 mL/min/1.73m^2); Estimated GFR (Non-African Ame >60 (>=60 mL/min/1.73m^2); Globulin 3.6 g/dL; Glucose 234 mg/dL (74-106); Potassium 4.7 mmol/L (3.5-5.1); Sodium 131 mmol/L (136-145); Total Protein 6.9 g/dL (6.4-8.2)
[2024-12-01 20:23] LABS: Magnesium 1.7 mg/dL (1.8-2.4); Thyroid Stimulating Hormone 0.963 uIU/mL (0.358-3.740); Troponin I High Sensitivity <4.0 pg/mL (4.0-76.1)
[2024-12-01 20:29] LABS: Bacteria Urine TRACE #/HPF (NONE SEEN); Crystals Seen? None Seen #/HPF (None Seen); Mucus Urine NONE SEEN (NONE SEEN); RBC Urine 0-2 #/HPF (0-2); Squamous Epithelial Cell Urine NONE SEEN #/LPF (NONE/RARE); WBC Urine 0-2 #/HPF (NONE SEEN)
[2024-12-01 20:30] LABS: Cast Seen? NONE SEEN #/LPF (NONE SEEN); Urine Culture Indicated NO
[2024-12-02] VITALS: BP 112/76; PULSE 73; O2SAT 97
== END 2024-12-02 00:03 | disposition home or self-care (01) ==
PROVIDERS: Physician Assistant; Emergency Provider Emergency Medicine; PCP Family Medicine
DX: R42 Dizziness and giddiness (principal); R10.9 Unspecified abdominal pain; R19.7 Diarrhea, unspecified; R11.2 Nausea with vomiting, unspecified; Z87.891 Personal history of nicotine dependence
CPT/HCPCS: 36415; 70450; 71045; 74177; 80053; 81001; 83605; 83690; 83735; 84443; 84484; 85025; 85610; 93005; 96361; 96374; 96375; 99285; J1171; J2405; J3490; Q9967

== ENCOUNTER 2025-01-03 17:58 | Emergency (ER) | payer MEDICARE, MEDICAID, SELFPAY ==
[2025-01-03] VITALS (34 sets, daily range): BP systolic 113–133; BP diastolic 69–83; PULSE 67–77; TEMP 36.8–37; O2SAT 90–98; BMI 37.1
--- NOTE | 2025-01-03 18:03 | ECG_ITS ---
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 Measurements Intervals [place] Rate: 75 P: 34 MT: 170 QRS: 3 QRSD: 84 T: 28 QT: 382 QTc: 411 Interpretive Statements 1100 Sinus rhythm 8102 Low QRS voltage in chest leads Abnormal ECG Compared to ECG 12/01/2024 18:49:13 Myocardial infarct finding no longer present Electronically Signed On 01-04-2025 17:51:44 EDT by SHAWNA SHEAPRD M.D.
--- NOTE | 2025-01-03 18:03 | ED.GENADUL1 ---
HPI HPI - General Adult General Chief complaint: Chest Pain Stated complaint: chest pains Time Seen by Provider: 01/03/25 18:03 History of Present Illness HPI narrative: Patient is [id number] male [facility] for [facility] today for evaluation of concerns. He endorses for the past 2 hours he has had a pressure to his chest. He reports associated symptoms of some mild shortness of breath. He reports a remote history of HI with stenting. He endorses Cardiovascular risk factors of hypertension, hyperlipidemia, and diabetes. He states he is not on any antiplatelet or anticoagulant medications currently. He did tell the nursing staff at this facility he was having some discomfort but states they took too long to call the physician so he subsequently notified EMS. EMS did administer 324 mg aspirin x 1 dose. He denies any symptoms of feeling diaphoretic, nausea/vomiting, cough/cold symptoms, fevers, dizziness or syncope. Related Data Home Medications ?Medication ?Instructions ?Recorded ?Confirmed acetaminophen 500 mg capsule 1,000 mg PO Q6H PRN fever or pain 06/19/24 01/03/25 atorvastatin 80 mg tablet 80 mg PO DAILY 06/19/24 01/03/25 buspirone 5 mg tablet 5 mg PO DAILY 06/19/24 01/03/25 citalopram 40 mg tablet 40 mg PO DAILY 06/19/24 01/03/25 clopidogrel 75 mg tablet 75 mg PO DAILY 06/19/24 01/03/25 donepezil 10 mg tablet 10 mg PO DAILY 06/19/24 01/03/25 famotidine 20 mg tablet 20 mg PO DAILY 06/19/24 01/03/25 fluticasone propionate 50 2 spray intranasal DAILY 06/19/24 01/03/25 mcg/actuation nasal spray,suspension furosemide 20 mg tablet 20 mg PO DAILY 06/19/24 01/03/25 gabapentin 600 mg tablet 1,200 mg PO Q8H 06/19/24 01/03/25 insulin aspart U-100 100 unit/mL 1 sliding scale dose subcut Q8H 06/19/24 01/03/25 (3 mL) subcutaneous pen (Novolog FlexPen U-100 Insulin aspart) metformin 1,000 mg tablet 1,000 mg PO BID 06/19/24 01/03/25 pantoprazole 40 mg tablet,delayed 40 mg PO DAILY 06/19/24 01/03/25 release primidone 250 mg tablet 250 mg PO DAILY 06/19/24 01/03/25 ropinirole 0.5 mg tablet 0.5 mg PO DAILY 06/19/24 01/03/25 lisinopril 10 mg tablet 10 mg PO DAILY 01/03/25 01/03/25 metoprolol tartrate 75 mg tablet 75 mg PO Q12H 01/03/25 01/03/25 semaglutide 2 mg/dose (8 mg/3 mL) 2 mg subcut .weekly 01/03/25 01/03/25 subcutaneous pen injector (Ozempic) Previous Rx's ?Medication ?Instructions ?Recorded insulin glargine 100 unit/mL (3 15 unit (0.15 mL) subcut BID #0 mL 06/20/24 mL) subcutaneous pen (Lantus Solostar U-100 Insulin) Allergies Allergy/AdvReac Type Severity Reaction Status Date / Time codeine Allergy Severe Anaphylaxis Verified 06/19/24 18:09 Latex, Natural Rubber Allergy Severe Rash Verified 06/19/24 18:09 Opioid HPI Opioid Management Most Recent Opioid Data: Last Pain Scale 8 Today, 18:58 Last ED Pain Assessment Today, 18:58 Last ORT Total Score 3 06/19/24, 21:33 Last ORT Risk Category Low Risk 06/19/24, 21:33 Review of Systems ROS Status of ROS 10 or more systems reviewed and unremarkable except as noted in history and below [facility] Medical History (Updated 01/03/25 @ 20:46 by [facility] NP) Schizo affective schizophrenia ?F25.9 - Schizoaffective disorder, unspecified (ICD-10) Generalized muscle weakness ?M62.81 - Muscle weakness (generalized) (ICD-10) Myocardial infarct ?I21.9 - Acute myocardial infarction, unspecified (ICD-10) Restless leg syndrome ?G25.81 - Restless legs syndrome (ICD-10) Anxiety disorder ?F41.9 - Anxiety disorder, unspecified (ICD-10) Nicotine dependence ?F17.200 - Nicotine dependence, unspecified, uncomplicated (ICD-10) Hyperlipidemia ?E78.5 - Hyperlipidemia, unspecified (ICD-10) COVID-19 ?U07.1 - COVID-19 (ICD-10) Suicidal ideations ?R45.851 - Suicidal ideations (ICD-10) Diabetes ?E11.9 - Type 2 diabetes mellitus without complications (ICD-10) Dementia ?F03.90 - Unspecified dementia, unspecified severity, without behavioral disturbance, psychotic disturbance, mood disturbance, and anxiety (ICD-10) Depressive disorder ?F32.A - Depression, unspecified (ICD-10) Social History Smoking status: Former smoker Highest level of school completed/degree received: high school graduate Little interest or pleasure in doing things: not at all Feeling down, depressed, or hopeless: not at all Exam Narrative Exam Narrative: Constituational: Awake/ alert, no apparent distress, + obese HENMT: normocephalic, external ears normal, moist oral mucous membranes and oropharynx normal Eyes: EOMs intact bilaterally and conjunctivae normal Neck: ROM intact Chest: inspection of chest normal Respiratory: Normal respiratory effort, clear to auscultation bilaterally Cardio: regular rate and regular rhythm GI: soft to palpation and non-tender Back: nontender MSK: full ROM and normal capillary refill Skin: no rashes Neuro: no focal deficits Psych: mental status grossly normal Constitutional Vital Signs, click to edit/add: Last Vital Signs Temp 98.2 F 01/03/25 18:01 Pulse 71 01/03/25 19:40 Resp 12 01/03/25 19:40 BP 123/81 01/03/25 19:30 Pulse Ox 97 01/03/25 19:40 O2 Del Method Room Air 01/03/25 18:01 Course Vital Signs Vital signs: Vital Signs Temperature 98.2 F 01/03/25 18:01 Pulse Rate 76 01/03/25 18:01 Respiratory Rate 18 01/03/25 18:01 Blood Pressure 133/75 01/03/25 18:01 Pulse Oximetry 97 01/03/25 18:01 Oxygen Delivery Method Room Air 01/03/25 18:01 Temperature 98.2 F 01/03/25 18:01 Pulse Rate 71 01/03/25 19:40 Respiratory Rate 12 01/03/25 19:40 Blood Pressure 123/81 01/03/25 19:30 Pulse Oximetry 97 01/03/25 19:40 Oxygen Delivery Method Room Air 01/03/25 18:01 Medical Decision Making [facility] Narrative Medical decision making narrative: Patient is a nontoxic-appearing 64-year-old presented to the emergency department today for evaluation concerns for chest pain. Patient vital signs overall stable. He does not obviously appear to be exhibiting any ischemic symptoms and does overall appear euvolemic on exam. He reported there to be a sensation of an elephant sitting on my chest to move himself from the cot to the ER bed without any concerns. initial EKG without any acute changes and troponin labs stable and showed no significant leukocytosis, anemia, thrombocytopenia. Renal and hepatic function stable. cxr Stable. Patient was reevaluated multiple times while in the ER and had no significant changes in condition. Patient's pain did resolve on its own. Pain behavior did seem to be somewhat malingering and he did endorse on follow-up examination that he was feeling stressed with pain. Findings with the patient including recommendations for supportive care. HEART score 3 d/t CV. Follow-up with patient's primary care provider for reevaluation. Discussed signs and symptoms of any worsening condition and when to consider reevaluation. Patient verbalized an understanding of this and is agreeable with the plan to be discharged back to the prison facility. Medical Records Medical records reviewed: Yes I reviewed the patient's medical records Lab Data Lab results reviewed: Yes I reviewed the patient's lab results Labs: Lab Results 01/03/25 Range/Units 18:10 WBC 5.7 (4.0-11.0) 10^3/uL RBC 4.69 L (4.70-6.10) 10^6/uL Hgb 13.2 L (14.0-18.0) g/dL Hct 38.3 L (42.0-54.0) % MCV 81.7 (80.0-94.0) fL MCH 28.1 (25.9-34.0) pg MCHC 34.5 (29.9-35.2) g/dL RDW 13.4 (11.0-15.0) % Plt Count 172 (150-450) 10^3/uL MPV 10.4 (9.5-13.5) fL Neut % (Auto) 68.0 (43.0-75.0) % Lymph % (Auto) 19.7 L (20.5-60.0) % Stanly % (Auto) 8.3 (1.7-12.0) % Eos % (Auto) 3.0 (0.9-7.0) % Baso % (Auto) 0.5 (0.2-2.0) % Neut # (Auto) 3.9 (1.4-6.5) 10^3/uL Lymph # (Auto) 1.1 L (1.2-3.8) 10^3/uL Stanly # (Auto) 0.5 (0.3-0.8) 10^3/uL Eos # (Auto) 0.2 (0.0-0.7) 10^3/uL Baso # (Auto) 0.0 (0.0-0.1) 10^3/uL Abs Immat Gran (auto) 0.03 (0.00-0.03) 10^3/uL Imm/Tot Granulo (auto) 0.5 (0.0-0.5) % Sodium 135 L (136-145) mmol/L Potassium 4.1 (3.5-5.1) mmol/L Chloride 102 (98-107) mmol/L Carbon Dioxide 28.9 (21.0-32.0) mmol/L Anion Gap 8.2 BUN 13.0 (7.0-18.0) mg/dL Creatinine 0.84 (0.70-1.30) mg/dL Est GFR ( Amer) >60 (>=60 mL/min/1.73m^2) Est GFR (Non-Af Amer) >60 (>=60 mL/min/1.73m^2) BUN/Creatinine Ratio 15.5 Glucose 188 H (74-106) mg/dL Calcium 8.4 L (8.5-10.1) mg/dL Total Bilirubin 0.2 (0.2-1.0) mg/dL AST 35 (15-37) U/L ALT 81 H (16-63) U/L Alkaline Phosphatase 111 (46-116) U/L Troponin I High Sens <4.0 L (4.0-76.1) pg/mL Total Protein 6.2 L (6.4-8.2) g/dL Albumin 3.1 L (3.4-5.0) g/dL Globulin 3.1 g/dL Albumin/Globulin Ratio 1.0 Imaging Data Chest x-ray: Attestation: I have reviewed the pertinent imaging results. ECG Data Attestation: I personally reviewed and interpreted this ECG as follows: (SR with HR 75, no acute/ischemic changes) Discharge Plan Discharge Chief Complaint: Chest Pain Clinical Impression: Chest pain Patient Disposition: Home, Self-Care Condition: Good Prescriptions / Home Meds: No Action buspirone 5 mg tablet 5 mg PO DAILY atorvastatin 80 mg tablet 80 mg PO DAILY gabapentin 600 mg tablet 1,200 mg PO Q8H Rx Instructions: Give 2 600mg Tablets citalopram 40 mg tablet 40 mg PO DAILY donepezil 10 mg tablet 10 mg PO DAILY clopidogrel 75 mg tablet 75 mg PO DAILY famotidine 20 mg tablet 20 mg PO DAILY primidone 250 mg tablet 250 mg PO DAILY pantoprazole 40 mg tablet,delayed release (DR/EC) 40 mg PO DAILY metformin 1,000 mg tablet 1,000 mg PO BID ropinirole 0.5 mg tablet 0.5 mg PO DAILY furosemide 20 mg tablet 20 mg PO DAILY fluticasone propionate 50 mcg/actuation spray,suspension 2 spray INTRANASAL DAILY insulin aspart U-100 [Novolog FlexPen U-100 Insulin] 100 unit/mL (3 mL) insulin pen 1 sliding scale dose SUBCUT Q8H acetaminophen 500 mg capsule 1,000 mg PO Q6H PRN (Reason: fever or pain) insulin glargine [Lantus Solostar U-100 Insulin] 100 unit/mL (3 mL) insulin pen 15 unit SUBCUT BID Qty: 0 0RF Ozempic 2 mg/dose (8 mg/3 mL) pen injector 2 mg SUBCUT .weekly metoprolol tartrate 75 mg tablet 75 mg PO Q12H lisinopril 10 mg tablet 10 mg PO DAILY Print Language: Welsh Instructions: Chest Pain (ED) Additional Instructions: Needed for any pain. Please follow-up with your primary care provider for reevaluation as discussed. Referrals: EDWIN LAYNE [Primary Care Provider, Family Practice] - 1 week
[2025-01-03 18:27] LABS: Basophils Percent Auto 0.5 % (0.2-2.0); Eosinophils Absolute Auto 0.2 10^3/uL (0.0-0.7); Hematocrit 38.3 % (42.0-54.0); Hemoglobin 13.2 g/dL (14.0-18.0); Immature Granulocytes Abs Auto 0.03 10^3/uL (0.00-0.03); Immature Granulocytes Pct Auto 0.5 % (0.0-0.5); Lymphocytes Absolute Auto 1.1 10^3/uL (1.2-3.8); Lymphocytes Percent Auto 19.7 % (20.5-60.0); Mean Corpuscular HGB Conc 34.5 g/dL (29.9-35.2); Mean Corpuscular Hemoglobin 28.1 pg (25.9-34.0); Mean Corpuscular Volume 81.7 fL (80.0-94.0); Mean Platelet Volume 10.4 fL (9.5-13.5); Monocytes Absolute Auto 0.5 10^3/uL (0.3-0.8); Monocytes Percent Auto 8.3 % (1.7-12.0); Neutrophils Absolute Auto 3.9 10^3/uL (1.4-6.5); Platelet Count 172 10^3/uL (150-450); Red Blood Count 4.69 10^6/uL (4.70-6.10); Red Cell Distribution Width 13.4 % (11.0-15.0); White Blood Count 5.7 10^3/uL (4.0-11.0)
[2025-01-03 18:38] LABS: Alanine Aminotransferase 81 U/L (16-63); Albumin Level 3.1 g/dL (3.4-5.0); Alkaline Phosphatase 111 U/L (46-116); Anion Gap 8.2; Aspartate Amino Transferase 35 U/L (15-37); BUN Creatinine Ratio 15.5; Bilirubin Total 0.2 mg/dL (0.2-1.0); Calcium 8.4 mg/dL (8.5-10.1); Carbon Dioxide 28.9 mmol/L (21.0-32.0); Chloride 102 mmol/L (98-107); Estimated GFR (African America >60 (>=60 mL/min/1.73m^2); Estimated GFR (Non-African Ame >60 (>=60 mL/min/1.73m^2); Globulin 3.1 g/dL; Glucose 188 mg/dL (74-106); Potassium 4.1 mmol/L (3.5-5.1); Sodium 135 mmol/L (136-145); Total Protein 6.2 g/dL (6.4-8.2)
[2025-01-03 18:41] LABS: Troponin I High Sensitivity <4.0 pg/mL (4.0-76.1)
--- NOTE | 2025-01-03 19:03 | PC.NURSE ---
i walked into this patient's room to find this patient awake and alert sitting upright on the bed, i introduced myself to this patient. i informed this patient waiting on the x-ray results to come back this patient voices no concerns and shows no signs of distress
--- NOTE | 2025-01-03 21:27 | PC.NURSE ---
this patient awake and alert sitting up right on the bed watching tv, this was given a sandwich and something to drink this patient informed that his ride back to [facility] will be 2 hours wait time this patient voices no concerns and shows no signs of distress
--- NOTE | 2025-01-03 23:03 | PC.NURSE ---
i gave this patient verbal and written discharge orders to this patient voices yes to understanding these. at time of discharge orders this patient voices no concerns and shows no signs of distress. i did removed this patient left ac 20 iv cath. this iv intact and i placed dressing secured with tape and no visible active bleeding at this time
== END 2025-01-03 23:05 | disposition home or self-care (01) ==
PROVIDERS: Nurse Practitioner; Emergency Provider Emergency Medicine; PCP Family Medicine
DX: R07.89 Other chest pain (principal); R06.02 Shortness of breath; E11.9 Type 2 diabetes mellitus without complications; Z79.85 Long-term (current) use of injectable non-insulin antidiabetic drugs; Z79.84 Long term (current) use of oral hypoglycemic drugs; I25.2 Old myocardial infarction
CPT/HCPCS: 36415; 71045; 80053; 84484; 85025; 93005; 99285